=== PATIENT | female | born 1990 | race Caucasian/White ===

== ENCOUNTER 2016-08-29 16:18 | Emergency (ER) | payer MEDICAID ==
--- NOTE | 2016-08-29 16:23 | ER Document Report ---
ED Medical Screen (RME) - General Stated Complaint: MOUTH PAIN Mode of Arrival: Ambulatory Notes: pt presents to the ED with c/o pain where she had tooth pulled two weeks ago. No fever/vomiting/diarrhea. Reports OTC meds not working for pain. I have greeted and performed a rapid initial assessment of this patient. A comprehensive ED assessment and evaluation of the patient, analysis of test results and completion of the medical decision making process will be conducted by additional ED providers. TRAVEL OUTSIDE OF THE [place] IN LAST 30 DAYS: No - Related Data Allergies/Adverse Reactions: morphine [Morphine] Allergy (Severe, Verified 03/24/16 12:08) Difficulty breathing/itch diphenhydramine HCl [From Benadryl] Allergy (Intermediate, Verified 03/24/16 12: 08) RASH iodine [Iodine] Allergy (Intermediate, Verified 03/24/16 12:08) RASH latex [Latex] Allergy (Intermediate, Verified 03/24/16 12:08) RASH amoxicillin [Amoxicillin] Allergy (Unknown, Verified 03/24/16 12:08) Penicillins Allergy (Unknown, Verified 03/24/16 12:08) Past Medical History - Social History Family history: Hypertension, Other - copd - Past Medical History Cardiac Medical History: Reports: Hx Hypertension Pulmonary Medical History: Reports: Hx Asthma Renal/ Medical History: Reports: Hx Pelvic Inflammatory Disease Psychiatric Medical History: Reports: Hx Bipolar Disorder, Hx Depression, Hx Post Traumatic Stress Disorder - Immunizations Immunizations up to date: Yes Hx Diphtheria, Pertussis, Tetanus Vaccination: Yes
[2016-08-29] MEDS ORDERED: NAPROXEN 250 MG TABLET PO ONE (16:38)
[2016-08-29] MEDS ORDERED: CLINDAMYCIN HCL 150 MG CAPSULE PO ONE (16:38)
[2016-08-29] MEDS ORDERED: HYDROCODONE/ACETAMINOPHEN 5-325 MG TABLET PO ONE (16:38)
--- NOTE | 2016-08-29 16:40 | ER Document Report ---
HPI - HPI Patient complains to provider of: dental pain Onset: Yesterday Onset/Duration: Gradual Quality of pain: Sharp Pain Level: 3 Context: Patient states she had a tooth pulled 2 weeks ago. Patient reports that she developed right lower jaw pain at the site of her recent extraction yesterday. Patient denies any fever or facial swelling. Associated Symptoms: Other - Dental pain. denies: Fever, Headache, Nausea Exacerbated by: Denies Relieved by: Denies Similar symptoms previously: Yes Recently seen / treated by doctor: Yes - 2 weeks ago was at the dentist - ROS ROS below otherwise negative: Yes Systems Reviewed and Negative: Yes All other systems reviewed and negative - CONSTITUTIONAL Constitutional: DENIES: Fever, Chills - EENT EENT: DENIES: Sore Throat Notes: Dental pain - RESPIRATORY Respiratory: DENIES: Trouble Breathing, Coughing - GASTROINTESTINAL Gastrointestinal: DENIES: Nausea, Patient vomiting - REPRODUCTIVE Reproductive: DENIES: : - MUSCULOSKELETAL Musculoskeletal: DENIES: Neck Pain - DERM Skin Color: Normal Skin Problems: None Past Medical History - General Information source: Patient - Social History Smoking Status: Never Smoker Chew tobacco use (# tins/day): No Frequency of alcohol use: None Drug Abuse: None 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 Denies: Hx Peritoneal Dialysis Psychiatric Medical History: Reports: Hx Bipolar Disorder, Hx Depression, Hx Post Traumatic Stress Disorder Surgical Hx: Negative - Immunizations Immunizations up to date: Yes Hx Diphtheria, Pertussis, Tetanus Vaccination: Yes Vertical Provider Document - CONSTITUTIONAL Agree With Documented VS: Yes Exam Limitations: No Limitations General Appearance: WD/WN, No Apparent Distress - INFECTION CONTROL TRAVEL OUTSIDE OF THE [place] IN LAST 30 DAYS: No - HEENT HEENT: Atraumatic, Normocephalic. negative: Pharyngeal Exudate, Pharyngeal Tenderness, Pharyngeal Erythema, Tympanic Membrane Bulging Mouth Diagram: 1 - Site of extraction. Mild erythema to gingiva, no swelling, no concern for abscess, no sublingual or submental swelling, no trismus. - NECK Neck: Normal Inspection, Supple. negative: Lymphadenopathy-Left, Lymphadenopathy-Right - RESPIRATORY Respiratory: Breath Sounds Normal, No Respiratory Distress, Chest Non-Tender - CARDIOVASCULAR Cardiovascular: Regular Rate, Regular Rhythm, No Murmur - BACK Back: Normal Inspection - MUSCULOSKELETAL/EXTREMETIES Musculoskeletal/Extremeties: MAEW - NEURO Level of Consciousness: Awake, Alert, Appropriate Motor/Sensory: No Motor Deficit - DERM Integumentary: Warm, Dry, No Rash Discharge - Discharge Clinical Impression: Toothache Condition: Stable Disposition: HOME, SELF-CARE Instructions: Toothache ([facility]), Clindamycin ([facility]), Oral Narcotic Medication ([facility] ) Additional Instructions: Return immediately for any new or worsening symptoms Followup with your dental care provider, call Thursday to make a followup appointment Prescriptions: Clindamycin HCl [Cleocin 300 mg Capsule] 300 mg PO TID #21 capsule Hydrocodone/Acetaminophen [[place] 5-325 Tablet] 1 each PO Q4 PRN #15 tablet PRN Reason: Naproxen [Naprosyn 250 Nmg Tablet] 1 tab PO BID #14 tablet Forms: Return to Work
== END 2016-08-29 17:13 | disposition home or self-care (01) ==
LOC: ER 16:18
DX: K08.89 Other specified disorders of teeth and supporting structures (principal); R68.84 Jaw pain; Z98.890 Other specified postprocedural states; I10 Essential (primary) hypertension; J45.909 Unspecified asthma, uncomplicated
CPT/HCPCS: 99282; J3490 ×2

== ENCOUNTER 2016-08-31 10:52 | Emergency (ER) | payer MEDICAID ==
--- NOTE | 2016-08-31 10:56 | ER Document Report ---
ED Medical Screen (RME) - General Stated Complaint: POSSIBLE ETOH Notes: Patient has suicidal ideation she had a razor in her hand last night, intoxicated and wanting taking her life.Her boyfriend took the razor from her.. TRAVEL OUTSIDE OF THE [place] IN LAST 30 DAYS: No - Related Data Allergies/Adverse Reactions: morphine [Morphine] Allergy (Severe, Verified 08/29/16 16:22) Difficulty breathing/itch diphenhydramine HCl [From Benadryl] Allergy (Intermediate, Verified 08/29/16 16: 22) RASH iodine [Iodine] Allergy (Intermediate, Verified 08/29/16 16:22) RASH latex [Latex] Allergy (Intermediate, Verified 08/29/16 16:22) RASH amoxicillin [Amoxicillin] Allergy (Unknown, Verified 08/29/16 16:22) Penicillins Allergy (Unknown, Verified 08/29/16 16:22) Past Medical History - Social History Family history: Hypertension, Other - copd - Past Medical History Cardiac Medical History: Reports: Hx Hypertension Pulmonary Medical History: Reports: Hx Asthma Renal/ Medical History: Reports: Hx Pelvic Inflammatory Disease. Denies: Hx Peritoneal Dialysis Psychiatric Medical History: Reports: Hx Bipolar Disorder, Hx Depression, Hx Post Traumatic Stress Disorder - Immunizations Immunizations up to date: Yes Hx Diphtheria, Pertussis, Tetanus Vaccination: Yes
[2016-08-31] MEDS ORDERED: IBUPROFEN 800 MG TABLET PO ONE (11:25)
[2016-08-31] MEDS ORDERED: ONDANSETRON 4 MG TAB.RAPDIS PO ONE (11:26)
--- NOTE | 2016-08-31 11:26 | ER Document Report ---
ED Psych Disorder / Suicide - General Time seen by provider: 11:21 Mode of Arrival: Ambulatory Information source: Patient TRAVEL OUTSIDE OF THE [place] IN LAST 30 DAYS: No - HPI Patient complains to provider of: Suicidal ideation Onset: Other - see HPI Associated symptoms: Anxious <KRISTIE ESCOBAR - Last Filed: 08/31/16 12:37> <CONNIE QUINTERO - Last Filed: 08/31/16 15:36> - General Chief Complaint: Suicidal Ideation Stated Complaint: POSSIBLE ETOH Notes: Patient is a 26-year-old female presents to the emergency department with suicidal ideation over the past few days. Patient has a history of pain and he caught her in the past, approximately 2-3 years ago. Patient states that she got relief from cutting herself. Patient was started on medications through [facility]. Patient states she has been off of her medications for years and has done okay until now. The patient states that she drank lots of alcohol last night because she was feeling depressed, patient passed out sometime after 04:00 which is when she states she stopped drinking. Patient states that she came to the emergency department to seek help because she does not feel safe and along with her intoxication last night she also had feelings of cutting herself again. Patient denies homicidal ideations but just states that she wants to hurt herself. Patient states her PCP is a family urgent care. Patient states that currently she is not on any regular medications except for an antibiotic for an oral infection; patient states she got her wisdom tooth removed 2-3 weeks ago and the area became infected so now she is on an antibiotic. Patient is not taking any pain medication from the wisdom tooth procedure. Patient does complain of a headache consistent with her intoxication. Patient has history of PTSD, depression, and bipolar disorder. (KRISTIE ESCOBAR) - Related Data Allergies/Adverse Reactions: morphine [Morphine] Allergy (Severe, Verified 08/31/16 10:57) Difficulty breathing/itch diphenhydramine HCl [From Benadryl] Allergy (Intermediate, Verified 08/31/16 10: 57) RASH iodine [Iodine] Allergy (Intermediate, Verified 08/31/16 10:57) RASH latex [Latex] Allergy (Intermediate, Verified 08/31/16 10:57) RASH amoxicillin [Amoxicillin] Allergy (Unknown, Verified 08/31/16 10:57) Penicillins Allergy (Unknown, Verified 08/31/16 10:57) Home Medications: Current Home Medications No Home Medications 08/31/16 [History] Past Medical History - General Information source: Patient - Social History Smoking Status: Never Smoker Chew tobacco use (# tins/day): No Frequency of alcohol use: Occasional Drug Abuse: None Occupation: [employer] Family History: None Patient has suicidal ideation: Yes Patient has homicidal ideation: No - Past Medical History Cardiac Medical History: Reports: Hx Hypertension Pulmonary Medical History: Reports: Hx Asthma Renal/ Medical History: Reports: Hx Pelvic Inflammatory Disease Psychiatric Medical History: Reports: Hx Bipolar Disorder, Hx Depression, Hx Post Traumatic Stress Disorder Past Surgical History: Reports: Hx Oral Surgery - wisdom tooth removal 07/2016 - Immunizations Immunizations up to date: Yes Hx Diphtheria, Pertussis, Tetanus Vaccination: Yes <KRISTIE ESCOBAR - Last Filed: 08/31/16 12:37> Review of Systems - Review of Systems Constitutional: No symptoms reported EENT: No symptoms reported Cardiovascular: No symptoms reported Respiratory: No symptoms reported Gastrointestinal: No symptoms reported Genitourinary: No symptoms reported Female Genitourinary: No symptoms reported Musculoskeletal: No symptoms reported Skin: No symptoms reported Hematologic/Lymphatic: No symptoms reported Neurological/Psychological: See HPI, Headaches, Suicidal ideation -: Yes All other systems reviewed and negative <KRISTIE ESCOBAR - Last Filed: 08/31/16 12:37> Physical Exam - Vital signs Interpretation: Tachycardic - General General appearance: Appears well, Alert - HEENT Head: Normocephalic, Atraumatic Eyes: Normal Pupils: PERRL Mucous membranes: Normal - Respiratory Respiratory status: No respiratory distress Chest status: Nontender Breath sounds: Normal Chest palpation: Normal - Cardiovascular Rhythm: Regular Heart sounds: Normal auscultation Murmur: No - Abdominal Inspection: Normal Distension: No distension Bowel sounds: Normal Tenderness: Nontender Organomegaly: No organomegaly - Back Back: Normal, Nontender - Extremities General upper extremity: Normal inspection, Normal ROM, Normal strength General lower extremity: Normal inspection, Normal ROM, Normal strength - Neurological Neuro grossly intact: Yes Cognition: Normal Orientation: AAOx4 [place] Coma Scale Eye Opening: Spontaneous Celi Coma Scale Verbal: Oriented [place] Coma Scale Motor: Obeys Commands Celi Coma Scale Total: 15 Speech: Normal Sensory: Normal - Psychological Associated symptoms: Normal affect, Normal mood - Skin Skin Temperature: Warm Skin Moisture: Dry <KRISTIE ESCOBAR - Last Filed: 08/31/16 12:37> Course - Laboratory Result Diagrams: 08/31/16 11:05 08/31/16 11:05 <KRISTIE ESCOBAR - Last Filed: 08/31/16 12:37> - Laboratory Result Diagrams: 08/31/16 11:05 08/31/16 11:05 - EKG Interpretation by Me EKG shows normal: Sinus rhythm, [place], QRS Complexes, ST-T Waves. abnormal: Intervals Rate: Normal - 101 Rhythm: NSR P Waves: LAE <CONNIE QUINTERO - Last Filed: 08/31/16 15:36> - Vital Signs Vital signs: Temp Pulse Resp BP Pulse Ox 97.5 F 118 H 20 156/99 H 100 08/31/16 10:56 08/31/16 10:56 08/31/16 10:56 08/31/16 10:56 08/31/16 10:56 - Laboratory Laboratory results interpreted by me: 08/31/16 08/31/16 11:05 11:05 Sodium 147.1 H Salicylates < 1.0 L Acetaminophen < 10 L Discharge <KRISTIE ESCOBAR - Last Filed: 08/31/16 12:37> <CONNIE QUINTERO - Last Filed: 08/31/16 15:36> - Discharge Clinical Impression: Suicidal ideation Depression Qualifiers: Depression Type: unspecified Qualified Code(s): F32.9 - Major depressive disorder, single episode, unspecified Condition: Stable Disposition: HOME, SELF-CARE Additional Instructions: FOLLOW UP WITH [facility]. RETURN ANY TIME IF NEEDED. Referrals: [facility] [Provider Group] - Follow up as needed Scribe Attestation: 08/31/16 15:36 I personally performed the services described in the documentation, reviewed and edited the documentation which was dictated to the scribe in my presence, and it accurately records my words and actions. (CONNIE QUINTERO) Scribe Documentation <KRISTIE ESCOBAR - Last Filed: 08/31/16 12:37> <CONNIE QUINTERO - Last Filed: 08/31/16 15:36> - Scribe Written by Scribe:: CONNIE QUINTERO MD, SCRIBE 08/31/16 1126 Acting as scribe for: Dr. Quintero ([facility]) (CONNIE QUINTERO)
[2016-08-31 11:35] LABS: ABSOLUTE LYMPHOCYTES (AUTO) 1.9 10^3/uL (0.5-4.7); ABSOLUTE MONOCYTES (AUTO) 0.5 10^3/uL (0.1-1.4); ABSOLUTE NEUT (AUTO) 4.3 10^3/uL (1.7-8.2); BASOPHILS % (AUTO) 0.5 % (0-2); EOSINOPHILS % (AUTO) 0.6 % (0-6); HEMATOCRIT 42.2 % (36.0-47.0); HEMOGLOBIN 13.7 g/dL (12.0-15.5); HGB HCT DIFFERENCE -1.1; LYMPHOCYTES % (AUTO) 28.1 % (13-45); MEAN CORPUSCULAR HEMOGLOBIN 28.2 pg (27.0-33.4); MEAN CORPUSCULAR HGB CONC 32.3 g/dL (32.0-36.0); MEAN CORPUSCULAR VOLUME 87 fl (80-97); MONOCYTES % (AUTO) 7.9 % (3-13); RED BLOOD COUNT 4.83 10^6/uL (3.72-5.28); RED CELL DISTRIBUTION WIDTH 13.6 % (11.5-14.0); SEGMENTED NEUTROPHILS % (AUTO) 62.9 % (42-78); WHITE BLOOD COUNT 6.9 10^3/uL (4.0-10.5)
[2016-08-31 11:56] LABS: URINE BARBITURATES SCREEN NEGATIVE; URINE METHADONE SCREEN NEGATIVE; URINE PHENCYCLIDINE SCREEN NEGATIVE
[2016-08-31 12:04] LABS: ALANINE AMINOTRANSFERASE 31 U/L (9-52); ALKALINE PHOSPHATASE 96 U/L (38-126); ANION GAP 12 (5-19); ASPARTATE AMINO TRANSFERASE 30 U/L (14-36); BILIRUBIN,TOTAL 0.3 mg/dL (0.2-1.3); BLOOD UREA NITROGEN 11 mg/dL (7-20); CALCIUM 9.1 mg/dL (8.4-10.2); CARBON DIOXIDE 29 mmol/L (22-30); CHLORIDE 106 mmol/L (98-107); CREATININE RESULT 0.61 mg/dL (0.52-1.25); GLUCOSE 85 mg/dL (75-110); POTASSIUM 4.5 mmol/L (3.6-5.0); SODIUM 147.1 mmol/L (137-145); TOTAL PROTEIN 7.2 g/dL (6.3-8.2)
[2016-08-31 12:06] LABS: APPEARANCE,URINE SLIGHTLY-CLOUDY; BILIRUBIN,URINE NEGATIVE (NEGATIVE); GLUCOSE, URINE NEGATIVE (NEGATIVE); KETONES,URINE NEGATIVE (NEGATIVE); LEUKOCYTE ESTERASE,URINE NEGATIVE (NEGATIVE); NITRITE,URINE NEGATIVE (NEGATIVE); PROTEIN,URINE NEGATIVE (NEGATIVE); URINE SPECIFIC GRAVITY 1.015; UROBILINOGEN,URINE NEGATIVE mg/dL (<2.0)
[2016-08-31 12:08] LABS: ALCOHOL < 10 mg/dL (NONE DETECTED)
--- NOTE | 2016-08-31 13:01 | PSYCHOLOGICAL NOTE ---
Psych Note - Psych Note Psych Note: Patient is a 26 year old female who presents via EMS with c/o possible ETOH intoxication and SI. Patient reported upon arrival that she was depressed yesterday and planned to cut, but her boyfriend removed the razor from her possession. Patient now states during evaluation that over the past 2 weeks she has been labile with mood and making poor decisions. She states she had been staying with her mother, who helps her to care for her infant son; however , she left about 2 weeks ago because she could "no longer stand the site of it. " Patient states she has been sleeping in different places, to include park benches, friend, boyfriend, etc. Patient adamant that she drank alcohol up until she fell asleep; however, there is none in her BAL. Patient states she has not been on any medications to treat her Bipolar Disorder since prior to her , but reports she chose to stop taking them because she did not like the way they made her feel. Patient states she does not want medications. She states she came here today to keep herself safe. Patient was seen by this clinician in November of 2014 for suicidal ideations and was referred to [facility]. Patient states she did go there for treatment, but stopped when she stopped her medications. Patient is unable to verbalize what would help her. Note, patient delivered her baby in October of 2015, and has been seen 15 times here in the Department for pain related complaints. Most recently, patient was seen for tooth abscess (08/29/15) at which time there were no noted concerns for her mental status. Patient provided consent to speak with the following individuals. Mother, : states she last saw the patient this morning, and she seemed fine. Mother states the patient stated she needed to get help and confirmed with her that she would watch the baby. Mother states over the last week or so she has just lost interest in engaging with them. Mother adamant that the patient lives with her and states she did not want to say anything else because she doesn't want to "go against" her daughter. Mother did however , confirm that she is caring for the baby and other child. CPS report was filed with On-gathering worker, Constance Polk with [facility]. Patient is A&O. Mood is manic with normal affect. Patient endorses suicidal ideations with plans to cut. Patient denies A/V H; delusions not noted. Thought processes were guarded. Conversational speech was WNL for rate, tone, and prosody. Intellectual abilities were estimated within lower average range. Attention and focus were fair. Insight, judgment, and impulse control were poor. 296.80 (F31.9) Unspecified Bipolar and Related Disorder, per history Substance Abuse Patient is psychiatrically cleared for discharge. Patient denies current suicidal ideations, and acknowledges the wanted to harm herself last night while reportedly under the influence. Patient was offered various interventions , but has denied each one. Specifically, patient denies wanting pharmacological interventions to manage her Bipolar illness, and states she is not interested in outpatient therapy to address substance abuse concerns and develop coping skills to manage her symptoms. Patient was provided resources should she change her mind and was encouraged to pursue outpatient services. I consulted with Dr. Morales in regards to the care and management of this patient. ED MD is in agreement with disposition and recommendations.
[2016-08-31 15:45] VITALS: BP 111/66
--- NOTE | 2016-08-31 18:33 | EKG REPORT ---
SEVERITY:- ABNORMAL ECG - SINUS TACHYCARDIA LEFT ATRIAL ABNORMALITY BORDERLINE PROLONGED QT INTERVAL : Confirmed by: Sunita Hudson MD 31-Aug-2016 18:32:47
== END 2016-08-31 15:47 | disposition home or self-care (01) ==
LOC: ER 10:52
DX: F32.9 Major depressive disorder, single episode, unspecified (principal); R45.851 Suicidal ideations; R51 Headache; R00.0 Tachycardia, unspecified; B99.9 Unspecified infectious disease; I10 Essential (primary) hypertension; J45.909 Unspecified asthma, uncomplicated; Z91.5 Personal history of self-harm; Z98.890 Other specified postprocedural states; Z88.5 Allergy status to narcotic agent; Z88.8 Allergy status to other drugs, medicaments and biological substances; Z88.0 Allergy status to penicillin; Z88.3 Allergy status to other anti-infective agents
CPT/HCPCS: 93005; 99285; 36415; 80307 ×4; 84703; 85025; 80053; 81001; 93010; J3490; S0119

== ENCOUNTER 2016-09-13 10:44 | Emergency (ER) | payer MEDICAID, OTHER ==
[2016-09-13] MEDS ORDERED: PROMETHAZINE HCL 25 MG TABLET PO ONE (11:00)
--- NOTE | 2016-09-13 11:03 | ER Document Report ---
ED Medical Screen (RME) - General Stated Complaint: RIGHT LOWER ABDOMINAL PAIN Time seen by provider: 10:57 Mode of Arrival: Ambulatory Information source: Patient Notes: 26-year-old female just recently found out that she was . Last menstrual period 08/10/2017. She started having suprapubic and right pelvic cramping this morning. No vaginal bleeding. Very nauseated. No vomiting. She does not want Zofran because of the controversy but is willing to take Phenergan because she wants something for the nausea. Was treated for PID 4 months ago. TRAVEL OUTSIDE OF THE [place] IN LAST 30 DAYS: No - Related Data Allergies/Adverse Reactions: morphine [Morphine] Allergy (Severe, Verified 09/13/16 10:59) Difficulty breathing/itch diphenhydramine HCl [From Benadryl] Allergy (Intermediate, Verified 09/13/16 10: 59) RASH iodine [Iodine] Allergy (Intermediate, Verified 09/13/16 10:59) RASH latex [Latex] Allergy (Intermediate, Verified 09/13/16 10:59) RASH amoxicillin [Amoxicillin] Allergy (Unknown, Verified 09/13/16 10:59) Penicillins Allergy (Unknown, Verified 09/13/16 10:59) Past Medical History - Social History Family history: Hypertension, Other - copd - Past Medical History Cardiac Medical History: Reports: Hx Hypertension Pulmonary Medical History: Reports: Hx Asthma Renal/ Medical History: Reports: Hx Pelvic Inflammatory Disease. Denies: Hx Peritoneal Dialysis Psychiatric Medical History: Reports: Hx Bipolar Disorder, Hx Depression, Hx Post Traumatic Stress Disorder Past Surgical History: Reports: Hx Oral Surgery - wisdom tooth removal 07/2016 - Immunizations Immunizations up to date: Yes Hx Diphtheria, Pertussis, Tetanus Vaccination: Yes Physical Exam - Vital signs Vitals: Temp Pulse Resp BP Pulse Ox 98.1 F 99 16 170/95 H 100 09/13/16 10:53 09/13/16 10:53 09/13/16 10:53 09/13/16 10:53 09/13/16 10:53 Course - Vital Signs Vital signs: Temp Pulse Resp BP Pulse Ox 98.1 F 99 16 170/95 H 100 09/13/16 10:53 09/13/16 10:53 09/13/16 10:53 09/13/16 10:53 09/13/16 10:53
--- NOTE | 2016-09-13 11:29 | ER Document Report ---
ED GI/ - General Chief Complaint: Abdominal Cramping Stated Complaint: RIGHT LOWER ABDOMINAL PAIN Mode of Arrival: Ambulatory Notes: 26-year-old female just recently found out that she was . Last menstrual period 08/10/2017. She started having suprapubic and right pelvic cramping this morning. No vaginal bleeding. Very nauseated. No vomiting. She does not want Zofran because of the controversy but is willing to take Phenergan because she wants something for the nausea. Was treated for PID 4 months ago. Describes her pain as cramping 1 out of 5 at its worse states she's been having daily otherwise tolerable with intermittent nausea. Denies any bleeding, discharge, vaginal odor. Past medical history significant for PTSD, depression, bipolar PCP is Dr. tico Leung TRAVEL OUTSIDE OF THE [place] IN LAST 30 DAYS: No - Related Data Allergies/Adverse Reactions: morphine [Morphine] Allergy (Severe, Verified 09/13/16 10:59) Difficulty breathing/itch diphenhydramine HCl [From Benadryl] Allergy (Intermediate, Verified 09/13/16 10: 59) RASH iodine [Iodine] Allergy (Intermediate, Verified 09/13/16 10:59) RASH latex [Latex] Allergy (Intermediate, Verified 09/13/16 10:59) RASH amoxicillin [Amoxicillin] Allergy (Unknown, Verified 09/13/16 10:59) Penicillins Allergy (Unknown, Verified 09/13/16 10:59) Past Medical History - General Information source: Patient - Social History Smoking Status: Never Smoker Chew tobacco use (# tins/day): No Frequency of alcohol use: Occasional Drug Abuse: None Family History: None Patient has suicidal ideation: No Patient has homicidal ideation: No - Past Medical History Cardiac Medical History: Reports: Hx Hypertension Pulmonary Medical History: Reports: Hx Asthma Renal/ Medical History: Reports: Hx Pelvic Inflammatory Disease. Denies: Hx Peritoneal Dialysis Psychiatric Medical History: Reports: Hx Bipolar Disorder, Hx Depression, Hx Post Traumatic Stress Disorder Past Surgical History: Reports: Hx Oral Surgery - wisdom tooth removal 07/2016 - Immunizations Immunizations up to date: Yes Hx Diphtheria, Pertussis, Tetanus Vaccination: Yes Review of Systems - Review of Systems Constitutional: No symptoms reported EENT: No symptoms reported Cardiovascular: No symptoms reported Respiratory: No symptoms reported Gastrointestinal: Other - abdominal cramping Genitourinary: No symptoms reported Female Genitourinary: No symptoms reported Musculoskeletal: No symptoms reported Skin: No symptoms reported Hematologic/Lymphatic: No symptoms reported Physical Exam - Vital signs Vitals: Temp Pulse Resp BP Pulse Ox 98.1 F 99 16 170/95 H 100 09/13/16 10:53 09/13/16 10:53 09/13/16 10:53 09/13/16 10:53 09/13/16 10:53 - Notes Notes: PHYSICAL EXAM GENERAL: Alert, interacts well. HEAD: Normocephalic, atraumatic. EYES: Pupils equal, round, and reactive to light. Extraocular movements intact. ENT: Oral mucosa moist, tongue midline. NECK: Full range of motion. Supple. Trachea midline. LUNGS: Clear to auscultation bilaterally, no wheezes, rales, or rhonchi. No respiratory distress. HEART: Regular rate and rhythm. No murmurs, gallops, or rubs. ABDOMEN: Soft, nondistended, nontender. No guarding, rebound, or rigidity.. Bowel sounds present in all 4 quadrants. Female : deferred EXTREMITIES: Moves all 4 extremities spontaneously. No edema, radial and dorsalis pedis pulses 2/4 bilaterally. No cyanosis. NEUROLOGICAL: Alert and oriented x3. Normal speech. PSYCH: Normal affect, normal mood. SKIN: Warm, dry, normal turgor. No rashes or lesions noted. Course - Re-evaluation Re-evalutation: 09/13/16 12:46 Is a 26-year-old female is hemodynamically stable, no acute distress. Transvaginal ultrasound did not reveal any IUP or extrauterine . Lab work did not reveal any leukocytosis or anemia. Her hCG was undetectable and her was negative. Urinalysis does reveal elevated leuk esterase. - Vital Signs Vital signs: Temp Pulse Resp BP Pulse Ox 98.1 F 99 16 170/95 H 100 09/13/16 10:53 09/13/16 10:53 09/13/16 10:53 09/13/16 10:53 09/13/16 10:53 - Laboratory Result Diagrams: 09/13/16 11:25 Laboratory results interpreted by me: 09/13/16 12:10 Ur Leukocyte Esterase SMALL H Discharge - Discharge Clinical Impression: UTI (urinary tract infection) Qualifiers: Urinary tract infection type: acute cystitis Hematuria presence: without hematuria Qualified Code(s): N30.00 - Acute cystitis without hematuria Condition: Good Disposition: HOME, SELF-CARE Instructions: Urinary Tract Infection ([facility]) Prescriptions: Ciprofloxacin HCl [Cipro 250 mg Tablet] 1 tab PO BID 3 Days Forms: Elevated Blood Pressure, Return to Work Referrals: MICHAEL LEUNG MD [ACTIVE STAFF] - Follow up as needed
[2016-09-13 11:41] LABS: ABSOLUTE EOSINOPHILS # (AUTO) 0.1 10^3/uL (0.0-0.6); ABSOLUTE MONOCYTES (AUTO) 0.8 10^3/uL (0.1-1.4); ABSOLUTE NEUT (AUTO) 7.3 10^3/uL (1.7-8.2); BASOPHILS % (AUTO) 0.2 % (0-2); EOSINOPHILS % (AUTO) 0.8 % (0-6); HEMATOCRIT 40.9 % (36.0-47.0); HEMOGLOBIN 13.7 g/dL (12.0-15.5); HGB HCT DIFFERENCE 0.2; LYMPHOCYTES % (AUTO) 19.9 % (13-45); MEAN CORPUSCULAR HEMOGLOBIN 28.8 pg (27.0-33.4); MEAN CORPUSCULAR HGB CONC 33.5 g/dL (32.0-36.0); MEAN CORPUSCULAR VOLUME 86 fl (80-97); MONOCYTES % (AUTO) 7.4 % (3-13); RED BLOOD COUNT 4.76 10^6/uL (3.72-5.28); RED CELL DISTRIBUTION WIDTH 13.7 % (11.5-14.0); SEGMENTED NEUTROPHILS % (AUTO) 71.7 % (42-78); WHITE BLOOD COUNT 10.2 10^3/uL (4.0-10.5)
[2016-09-13 12:37] LABS: APPEARANCE,URINE CLOUDY; BILIRUBIN,URINE NEGATIVE (NEGATIVE); GLUCOSE, URINE NEGATIVE (NEGATIVE); KETONES,URINE NEGATIVE (NEGATIVE); LEUKOCYTE ESTERASE,URINE SMALL (NEGATIVE); NITRITE,URINE NEGATIVE (NEGATIVE); PROTEIN,URINE NEGATIVE (NEGATIVE); URINE SPECIFIC GRAVITY 1.021; UROBILINOGEN,URINE NEGATIVE mg/dL (<2.0)
[2016-09-13] MEDS ORDERED: CIPROFLOXACIN HCL 500 MG TABLET PO ONE (12:51)
[2016-09-13 12:53] VITALS: BP 141/95
== END 2016-09-13 13:03 | disposition home or self-care (01) ==
LOC: ER 10:44
DX: N30.00 Acute cystitis without hematuria (principal); R10.31 Right lower quadrant pain; I10 Essential (primary) hypertension; F43.10 Post-traumatic stress disorder, unspecified; Z88.6 Allergy status to analgesic agent; Z91.040 Latex allergy status; Z88.0 Allergy status to penicillin
CPT/HCPCS: 99284; 86900; 86901; 36415; 87086; 84702; 85025; 81001; 76817; J3490 ×2

== ENCOUNTER 2016-09-22 20:50 | Emergency (ER) | payer MEDICAID ==
[2016-09-22] MEDS ORDERED: ACETAMINOPHEN 325 MG TABLET PO ONE (22:28)
--- NOTE | 2016-09-22 22:30 | ER Document Report ---
ED Medical Screen (RME) - General Chief Complaint: Ankle Pain Stated Complaint: FALL, LEG PAIN Mode of Arrival: Wheelchair Information source: Patient Notes: Patient states she was chasing after her dog and stepped into a pothole. Patient complains of right ankle pain. I have greeted and performed a rapid initial assessment of this patient. A comprehensive ED assessment and evaluation of the patient, analysis of test results and completion of the medical decision making process will be conducted by additional ED providers. TRAVEL OUTSIDE OF THE [place] IN LAST 30 DAYS: No - Related Data Allergies/Adverse Reactions: morphine [Morphine] Allergy (Severe, Verified 09/13/16 10:59) Difficulty breathing/itch diphenhydramine HCl [From Benadryl] Allergy (Intermediate, Verified 09/13/16 10: 59) RASH iodine [Iodine] Allergy (Intermediate, Verified 09/13/16 10:59) RASH latex [Latex] Allergy (Intermediate, Verified 09/13/16 10:59) RASH amoxicillin [Amoxicillin] Allergy (Unknown, Verified 09/13/16 10:59) Penicillins Allergy (Unknown, Verified 09/13/16 10:59) Past Medical History - Social History Family history: Hypertension, Other - copd - Past Medical History Cardiac Medical History: Reports: Hx Hypertension Pulmonary Medical History: Reports: Hx Asthma Renal/ Medical History: Reports: Hx Pelvic Inflammatory Disease. Denies: Hx Peritoneal Dialysis Psychiatric Medical History: Reports: Hx Bipolar Disorder, Hx Depression, Hx Post Traumatic Stress Disorder Past Surgical History: Reports: Hx Oral Surgery - wisdom tooth removal 07/2016 - Immunizations Immunizations up to date: Yes Hx Diphtheria, Pertussis, Tetanus Vaccination: Yes Physical Exam - Vital signs Vitals: Temp Pulse Resp BP Pulse Ox 98.2 F 94 18 156/101 H 100 09/22/16 22:18 09/22/16 22:18 09/22/16 22:18 09/22/16 22:18 09/22/16 22:18 - Extremities General lower extremity: Tender - Right foot and ankle Course - Vital Signs Vital signs: Temp Pulse Resp BP Pulse Ox 98.2 F 94 18 156/101 H 100 09/22/16 22:18 09/22/16 22:18 09/22/16 22:18 09/22/16 22:18 09/22/16 22:18
--- NOTE | 2016-09-23 01:14 | ER Document Report ---
ED Extremity Problem, Lower - General Chief Complaint: Ankle Pain Stated Complaint: FALL, LEG PAIN Mode of Arrival: Wheelchair TRAVEL OUTSIDE OF THE [place] IN LAST 30 DAYS: No - Related Data Allergies/Adverse Reactions: morphine [Morphine] Allergy (Severe, Verified 09/13/16 10:59) Difficulty breathing/itch diphenhydramine HCl [From Benadryl] Allergy (Intermediate, Verified 09/13/16 10: 59) RASH iodine [Iodine] Allergy (Intermediate, Verified 09/13/16 10:59) RASH latex [Latex] Allergy (Intermediate, Verified 09/13/16 10:59) RASH amoxicillin [Amoxicillin] Allergy (Unknown, Verified 09/13/16 10:59) Penicillins Allergy (Unknown, Verified 09/13/16 10:59) Past Medical History - General Information source: Patient - Social History Smoking Status: Never Smoker Frequency of alcohol use: Occasional Drug Abuse: None Family History: None Patient has suicidal ideation: No Patient has homicidal ideation: No - Past Medical History Cardiac Medical History: Reports: Hx Hypertension Pulmonary Medical History: Reports: Hx Asthma Renal/ Medical History: Reports: Hx Pelvic Inflammatory Disease. Denies: Hx Peritoneal Dialysis Psychiatric Medical History: Reports: Hx Bipolar Disorder, Hx Depression, Hx Post Traumatic Stress Disorder Past Surgical History: Reports: Hx Oral Surgery - wisdom tooth removal 07/2016 - Immunizations Immunizations up to date: Yes Hx Diphtheria, Pertussis, Tetanus Vaccination: Yes Physical Exam - Vital signs Vitals: Temp Pulse Resp BP Pulse Ox 98.2 F 94 18 156/101 H 100 09/22/16 22:18 09/22/16 22:18 09/22/16 22:18 09/22/16 22:18 09/22/16 22:18 Course - Vital Signs Vital signs: Temp Pulse Resp BP Pulse Ox 98.2 F 94 18 156/101 H 100 09/22/16 22:18 09/22/16 22:18 09/22/16 22:18 09/22/16 22:18 09/22/16 22:18 Discharge - Discharge Clinical Impression: Ankle sprain Condition: Stable Disposition: HOME, SELF-CARE Instructions: Sprained Ankle ([facility]), Ice Packs ([facility]) Referrals: GLENN ROSS MD [Primary Care Provider] - Follow up as needed
--- NOTE | 2016-09-23 02:39 | ER Document Report ---
ED Extremity Problem, Lower - General Mode of Arrival: Wheelchair Information source: Patient TRAVEL OUTSIDE OF THE [place] IN LAST 30 DAYS: No - HPI Patient complains to provider of: Injury Location: Ankle - Right Occurred: This afternoon Where: Outdoors Onset/Duration: Sudden Context: Fell Associated symptoms: Painful ambulation <BAUTISTA DEY - Last Filed: 09/23/16 02:34> <ELVIS SAMPSON - Last Filed: 09/23/16 05:17> - General Chief Complaint: Ankle Pain Stated Complaint: FALL, LEG PAIN Notes: Patient is a 26-year-old female presenting to the emergency department concerned of right ankle pain after tripping in a hole while trying to get her dog off the street this afternoon. Patient denies any other injuries. Patient has no other concerns besides her right ankle. (BAUTISTA DEY) - Related Data Allergies/Adverse Reactions: morphine [Morphine] Allergy (Severe, Verified 09/13/16 10:59) Difficulty breathing/itch diphenhydramine HCl [From Benadryl] Allergy (Intermediate, Verified 09/13/16 10: 59) RASH iodine [Iodine] Allergy (Intermediate, Verified 09/13/16 10:59) RASH latex [Latex] Allergy (Intermediate, Verified 09/13/16 10:59) RASH amoxicillin [Amoxicillin] Allergy (Unknown, Verified 09/13/16 10:59) Penicillins Allergy (Unknown, Verified 09/13/16 10:59) Past Medical History - General Information source: Patient - Social History Smoking Status: Never Smoker Frequency of alcohol use: Occasional Drug Abuse: None Family History: None, Reviewed & Not Pertinent Patient has suicidal ideation: No Patient has homicidal ideation: No - Past Medical History Cardiac Medical History: Reports: Hx Hypertension Pulmonary Medical History: Reports: Hx Asthma Renal/ Medical History: Reports: Hx Pelvic Inflammatory Disease. Denies: Hx Peritoneal Dialysis Psychiatric Medical History: Reports: Hx Bipolar Disorder, Hx Depression, Hx Post Traumatic Stress Disorder Past Surgical History: Reports: Hx Oral Surgery - wisdom tooth removal 07/2016 - Immunizations Immunizations up to date: Yes Hx Diphtheria, Pertussis, Tetanus Vaccination: Yes <BAUTISTA DEY - Last Filed: 09/23/16 02:34> Review of Systems - Review of Systems Constitutional: No symptoms reported EENT: No symptoms reported Cardiovascular: No symptoms reported Respiratory: No symptoms reported Gastrointestinal: No symptoms reported Genitourinary: No symptoms reported Female Genitourinary: No symptoms reported Musculoskeletal: See HPI, Other - Right foot/ankle pain Skin: No symptoms reported Hematologic/Lymphatic: No symptoms reported Neurological/Psychological: No symptoms reported -: Yes All other systems reviewed and negative <FABY DEYICA - Last Filed: 09/23/16 02:34> Physical Exam - Vital signs Interpretation: Hypertensive - General General appearance: Alert In distress: None - HEENT Head: Normocephalic, Atraumatic Eyes: Normal Pupils: PERRL - Respiratory Respiratory status: No respiratory distress Breath sounds: Normal - Cardiovascular Rhythm: Regular Heart sounds: Normal auscultation Murmur: No - Abdominal Inspection: Normal Tenderness: Nontender - Back Back: Normal, Nontender - Extremities General upper extremity: Normal inspection, Normal color, Normal ROM. No: Edema Ankle: Tender - Tenderness to palpation inferior and anterior to right lateral malleolus. Good pulses. Patient is able to move toes. - Neurological Neuro grossly intact: Yes Cognition: Normal Rose Bud Coma Scale Eye Opening: Spontaneous Rose [place] Coma Scale Verbal: Oriented Rose [place] Coma Scale Motor: Obeys Commands Celi Coma Scale Total: 15 Speech: Normal - Psychological Associated symptoms: Normal affect, Normal mood - Skin Skin Temperature: Warm Skin Moisture: Dry Skin Color: Normal <TIBURCIOBAUTISTA - Last Filed: 09/23/16 02:34> Course <TIBURCIOGRAEMEBAUTISTA - Last Filed: 09/23/16 02:34> - Diagnostic Test Radiology reviewed: Reports reviewed <ELVIS SAMPSON - Last Filed: 09/23/16 05:17> - Re-evaluation Re-evalutation: 09/23/16 Patient with no acute findings on x-ray. Patient will be given splint and crutches. She can take ibuprofen and Tylenol as needed at home for pain. No other injuries. Stable for discharge. Understands agrees with plan. Follow- up with PMD as needed. (ELVIS SAMPSON) - Vital Signs Vital signs: Temp Pulse Resp BP Pulse Ox 98.3 F 79 15 128/81 H 99 09/23/16 03:57 09/23/16 03:57 09/23/16 03:57 09/23/16 03:57 09/23/16 03:57 (BAUTISTA DEY) (ELVIS SAMPSON) Discharge <BAUTISTA DEY - Last Filed: 09/23/16 02:34> <ELVIS SAMPSON - Last Filed: 09/23/16 05:17> - Discharge Clinical Impression: Ankle sprain Qualifiers: Encounter type: initial encounter Involved ligament of ankle: unspecified ligament Laterality: right Qualified Code(s): S93.401A - Sprain of unspecified ligament of right ankle, initial encounter Condition: Stable Disposition: HOME, SELF-CARE Instructions: Ice Packs ([facility]), Sprained Ankle ([facility]) Forms: Return to Work Referrals: GLENN ROSS MD [Primary Care Provider] - Follow up as needed Scribe Attestation: 09/23/16 05:17 I personally performed the services described in the documentation, reviewed and edited the documentation which was dictated to the scribe in my presence, and it accurately records my words and actions. (ELVIS SAMPSON) Scribe Documentation - Scribe Written by Scribe:: Bautista Dey 09/23/2016 0235 acting as scribe for :: Filiberto <BAUTISTA DEY - Last Filed: 09/23/16 02:34>
[2016-09-23 03:58] VITALS: BP 128/81
== END 2016-09-23 02:13 | disposition home or self-care (01) ==
LOC: ER 20:50
DX: S93.401A Sprain of unspecified ligament of right ankle, initial encounter (principal); M25.571 Pain in right ankle and joints of right foot; W01.0XXA Fall on same level from slipping, tripping and stumbling without subsequent striking against object, initial encounter; Y93.K9 Activity, other involving animal care; I10 Essential (primary) hypertension; J44.9 Chronic obstructive pulmonary disease, unspecified; Z88.5 Allergy status to narcotic agent; Z88.8 Allergy status to other drugs, medicaments and biological substances; Z88.3 Allergy status to other anti-infective agents; Z91.040 Latex allergy status; Z88.0 Allergy status to penicillin
CPT/HCPCS: 99283; 73610; 73630; J3490

== ENCOUNTER 2016-10-23 03:26 | Emergency (ER) | payer MEDICAID ==
--- NOTE | 2016-10-23 03:57 | ER Document Report ---
ED General - General Chief Complaint: Psych Problem Stated Complaint: EDIVC Cannot obtain history due to: Uncooperative Notes: Patient is a 26-year-old female with past medical history of multiple prior suicide attempts who presents on IVC after apparently trying to kill herself or threatening to kill herself by slashing her wrist with a knife. Patient refuses to provide any history at time of assessment seen she does not wish to speak to me or any other the medical providers here in the emergency department. Her states the above provided history. Patient denies any medical complaints. believes that the losing custody of her child to her ex-fianc triggered today's episode. He does not believe she takes any psychiatric medications. TRAVEL OUTSIDE OF THE [place] IN LAST 30 DAYS: No - Related Data Allergies/Adverse Reactions: morphine [Morphine] Allergy (Severe, Verified 10/23/16 03:48) Difficulty breathing/itch diphenhydramine HCl [From Benadryl] Allergy (Intermediate, Verified 10/23/16 03: 48) RASH iodine [Iodine] Allergy (Intermediate, Verified 10/23/16 03:48) RASH latex [Latex] Allergy (Intermediate, Verified 10/23/16 03:48) RASH amoxicillin [Amoxicillin] Allergy (Unknown, Verified 10/23/16 03:48) Penicillins Allergy (Unknown, Verified 10/23/16 03:48) Past Medical History - General Information source: Relative Cannot obtain history due to: Uncooperative - Social History Smoking Status: Current Every Day Smoker Chew tobacco use (# tins/day): No Frequency of alcohol use: Occasional Drug Abuse: None Lives with: Spouse/Significant other Family History: None, Reviewed & Not Pertinent Patient has suicidal ideation: No Patient has homicidal ideation: No - Past Medical History Cardiac Medical History: Reports: Hx Hypertension Pulmonary Medical History: Reports: Hx Asthma Renal/ Medical History: Reports: Hx Pelvic Inflammatory Disease. Denies: Hx Peritoneal Dialysis Psychiatric Medical History: Reports: Hx Bipolar Disorder, Hx Depression, Hx Post Traumatic Stress Disorder Past Surgical History: Reports: Hx Oral Surgery - wisdom tooth removal 07/2016 - Immunizations Immunizations up to date: Yes Hx Diphtheria, Pertussis, Tetanus Vaccination: Yes Review of Systems - Review of Systems Notes: Constitutional: Negative for fever. HENT: Negative for sore throat. Eyes: Negative for visual changes. Cardiovascular: Negative for chest pain. Respiratory: Negative for shortness of breath. Gastrointestinal: Negative for abdominal pain, vomiting or diarrhea. Genitourinary: Negative for dysuria. Musculoskeletal: Negative for back pain. Skin: Negative for rash. Neurological: Negative for headaches, weakness or numbness. 10 point ROS negative except as marked above and in HPI. Physical Exam - Vital signs Vitals: Temp Pulse Resp BP Pulse Ox 97.6 F 81 18 143/95 H 100 10/23/16 03:28 10/23/16 03:28 10/23/16 03:28 10/23/16 03:28 10/23/16 03:28 Notes: PHYSICAL EXAMINATION: GENERAL: Well-appearing, well-nourished and in no acute distress. HEAD: Atraumatic, normocephalic. EYES: sclera anicteric, conjunctiva are normal. ENT: Moist mucous membranes. NECK: Normal range of motion LUNGS: Normal work of breathing HEART: 2+ radial pulses bilaterally EXTREMITIES: no pitting or edema. No cyanosis. NEUROLOGICAL: No focal neurological deficits. Moves all extremities spontaneously and on command. PSYCH: Disposition is below stated age. Poor eye contact. Minimal verbal contact SKIN: Warm, Dry, normal turgor, no rashes or lesions noted. Course - Re-evaluation Re-evalutation: 10/23/16 03:57 Patient presents with apparent suicidal ideation although she refuses to speak to me. Patient states "I do not want to speak about it" and her at the bedside provides the history per the IVC. Patient apparently was threatening to commit suicide this evening and did hold a knife to her wrist on 2 separate occasions. She has a prior history of suicidal ideation and attempts in the past. She denies any physical complaints here today. Perform medical screening laboratories per protocol and a medical screening exam is otherwise unremarkable. She will be seen by psychiatry in the morning. 10/23/16 06:00 Medical screening laboratories are unremarkable. Patient is now cleared for evaluation by psychiatry. - Vital Signs Vital signs: Temp Pulse Resp BP Pulse Ox 97.6 F 81 18 143/95 H 100 10/23/16 03:28 10/23/16 03:28 10/23/16 03:50 10/23/16 03:28 10/23/16 03:28 - Laboratory Result Diagrams: 10/23/16 04:32 10/23/16 04:32 Laboratory results interpreted by me: 10/23/16 10/23/16 10/23/16 04:32 04:32 04:55 WBC 12.4 H RDW 14.3 H Ur Leukocyte Esterase TRACE H Salicylates < 1.0 L Acetaminophen < 10 L - EKG Interpretation by Me Additional EKG results interpreted by me: 10/23/16 06:00 Normal sinus rhythm. No ST elevations or depressions. QTC is 468. Heart rate is 68. Discharge - Discharge Clinical Impression: Attempted suicide Condition: Fair Disposition: PSYCH HOSP/UNIT
[2016-10-23 04:40] LABS: ABSOLUTE EOSINOPHILS # (AUTO) 0.3 10^3/uL (0.0-0.6); ABSOLUTE LYMPHOCYTES (AUTO) 2.9 10^3/uL (0.5-4.7); ABSOLUTE NEUT (AUTO) 8.1 10^3/uL (1.7-8.2); BASOPHILS % (AUTO) 0.3 % (0-2); EOSINOPHILS % (AUTO) 2.5 % (0-6); HEMATOCRIT 38.2 % (36.0-47.0); HEMOGLOBIN 12.9 g/dL (12.0-15.5); HGB HCT DIFFERENCE 0.5; LYMPHOCYTES % (AUTO) 23.5 % (13-45); MEAN CORPUSCULAR HEMOGLOBIN 28.4 pg (27.0-33.4); MEAN CORPUSCULAR HGB CONC 33.6 g/dL (32.0-36.0); MEAN CORPUSCULAR VOLUME 84 fl (80-97); MONOCYTES % (AUTO) 8.3 % (3-13); RED BLOOD COUNT 4.53 10^6/uL (3.72-5.28); RED CELL DISTRIBUTION WIDTH 14.3 % (11.5-14.0); SEGMENTED NEUTROPHILS % (AUTO) 65.4 % (42-78); WHITE BLOOD COUNT 12.4 10^3/uL (4.0-10.5)
[2016-10-23] MEDS ORDERED: ACETAMINOPHEN 325 MG TABLET PO ONE (04:44)
[2016-10-23 04:54] LABS: ALANINE AMINOTRANSFERASE 32 U/L (9-52); ALBUMIN 3.9 g/dL (3.5-5.0); ALKALINE PHOSPHATASE 88 U/L (38-126); ANION GAP 12 (5-19); ASPARTATE AMINO TRANSFERASE 21 U/L (14-36); BILIRUBIN,TOTAL 0.3 mg/dL (0.2-1.3); BLOOD UREA NITROGEN 11 mg/dL (7-20); CALCIUM 9.1 mg/dL (8.4-10.2); CARBON DIOXIDE 27 mmol/L (22-30); CHLORIDE 104 mmol/L (98-107); GLUCOSE 93 mg/dL (75-110); POTASSIUM 3.7 mmol/L (3.6-5.0); SODIUM 142.6 mmol/L (137-145); TOTAL PROTEIN 6.7 g/dL (6.3-8.2)
[2016-10-23 05:01] LABS: ALCOHOL < 10 mg/dL (NONE DETECTED)
[2016-10-23 05:23] LABS: URINE BARBITURATES SCREEN NEGATIVE; URINE METHADONE SCREEN NEGATIVE; URINE OPIATES LOW NEGATIVE; URINE PHENCYCLIDINE SCREEN NEGATIVE
[2016-10-23 05:26] LABS: APPEARANCE,URINE CLEAR; BILIRUBIN,URINE NEGATIVE (NEGATIVE); GLUCOSE, URINE NEGATIVE (NEGATIVE); KETONES,URINE NEGATIVE (NEGATIVE); LEUKOCYTE ESTERASE,URINE TRACE (NEGATIVE); NITRITE,URINE NEGATIVE (NEGATIVE); PROTEIN,URINE NEGATIVE (NEGATIVE); URINE SPECIFIC GRAVITY 1.008; UROBILINOGEN,URINE NEGATIVE mg/dL (<2.0)
--- NOTE | 2016-10-23 08:49 | PSYCHOLOGICAL NOTE ---
Psych Note - Psych Note Psych Note: Patient presented to [facility] ED with multiple prior suicide attempts who presents on IVC after apparently trying to kill herself or threatening to kill herself by slashing her wrist with a knife. Patient refuses to provide any history at time of assessment seen she does not wish to speak to me or any other the medical providers here in the emergency department. Her states the above provided history. Patient stated that she did not want to talk about what occurred; clinician noted patient to be smirking. After clinician explained to patient that she wanted to be part of the process and not talking was not an option. Patient discloses she did not know where to start. Clinician assisted patient in starting by asking questions. Patient states she is receiving services through [facility] and started going approximately mid September and that she receives medication management and therapeutic services. She continued disclosed that she has diagnosis of bipolar. Patient has been twice with 2 children; age 5 and age 1. She continue disclosed that she was diagnosed with depression back in 2010. She has had 1 psychiatric hospitalization at [facility] 2010. Patient disclosed that her 1-year-old was in kinship care with her mother and when her ex heard about it he jumped around from [place] spoke with the CPS worker took custody of the baby and left. She continue disclosed that she "just lost it." Patient states that she is very close to the baby more so than a 5-year-old because her mother had always taking care of a 5-year-old. Patient states she has no memory of having difficulty bonding with the baby; Clinician notes that on 08/31/16 the patient stated "she had been staying with her mother, who helps her to care for her infant son; however, she left about 2 weeks ago because she could 'no longer stand the site of it.'" Patient states that she thinks she needs to get on medication with outpatient treatment. Clinician asked if patient is receiving substance abuse treatment; patient denies. Clinician notes patient sought services 16 times in 2016 patient states "I don't remember, but I believe you." Clinician asked patient if she has a substance abuse problem, patient confirms. Patient states she would like assistance with sobriety. Patient is alert and orientated to person place time and circumstance. Patient' s mood is euthymic with congruent affect. Patient denies suicidal and homicidal ideation; patient does admit to past difficulties with SI and suicidal gestures. Patient denies auditory visual hallucinations my: No delusions are noted. Thought process is logical organized and linear. Thought content is guarded and showing tendencies of manipulation for an unknown secondary gain. Conversational speech was within normal rate and prosody. Eye contact was well maintained. Intellectual abilities appear to be average range. Attention and concentration are fair. Insight, judgment, impulse control are poor. 296.80 (F31.9) Unspecified Bipolar and Related Disorder, per history 292.9 (F19.99) Unspecified Substance related disorder. Impression\\plan: Patient is recommended for rescind of IVC is considered psychiatrically cleared for discharge. Patient denies suicidal homicidal ideation; she no longer meets criteria for IVC per [place] GS 122C. Patient has been seen on numerous occasions in this ED for pain; patient admits to substance abuse. Patient states she is open to receiving substance abuse treatment. Clinician provided outpatient and inpatient resource lists for substance abuse. Thought content is guarded and showing tendencies of manipulation for an unknown secondary gain; however, substance abuse could play a major role in this. Patient's agrees to help patient through with outpatient services for both her mental health and her substance abuse. Both patient and feel comfortable with discharge plan. Patient is psychiatrically cleared for discharge. Dr. Morales was consulted on care and management of this patient; attending physician is in agreement with recommendations and disposition.
--- NOTE | 2016-10-23 09:38 | ER Document Report ---
Doctor's Note Notes: 10/23/16 09:37 Rounds: Chart reviewed and patient interviewed. Patient no longer expresses suicidal thoughts this morning. Vital signs are all normal. Lab work was normal with exception of a minimally elevated white count of 12,400, but the patient has no signs or symptoms of infection. Patient appears to be medically stable for transfer or discharge. Mental health has assessed the patient feels she can be discharged for outpatient follow-up at [facility] next week. Rose Marcial M.D.
[2016-10-23 09:53] VITALS: BP 112/59
--- NOTE | 2016-10-23 10:20 | EKG REPORT ---
SEVERITY:- ABNORMAL ECG - SINUS RHYTHM VENTRICULAR PREMATURE COMPLEX CONSIDER LEFT VENTRICULAR HYPERTROPHY : Confirmed by: Isabell Rojas 23-Oct-2016 10:20:00
== END 2016-10-23 09:58 | disposition home or self-care (01) ==
LOC: ER 03:26
DX: T14.91 Suicide attempt (principal); X78.1XXA Intentional self-harm by knife, initial encounter; F31.9 Bipolar disorder, unspecified; Z79.899 Other long term (current) drug therapy; D72.829 Elevated white blood cell count, unspecified; I10 Essential (primary) hypertension; J45.909 Unspecified asthma, uncomplicated; F17.200 Nicotine dependence, unspecified, uncomplicated; Z88.5 Allergy status to narcotic agent; Z88.8 Allergy status to other drugs, medicaments and biological substances; Z91.040 Latex allergy status; Z88.0 Allergy status to penicillin
CPT/HCPCS: 36415; 80053; 80307; 81001; 84703; 85025; 93005; 93010; 99285

== ENCOUNTER 2016-11-13 08:00 | Day surgery (SDC) | payer MEDICAID ==
[2016-11-07 10:37] LABS: APPEARANCE,URINE SLIGHTLY-CLOUDY; BILIRUBIN,URINE NEGATIVE (NEGATIVE); GLUCOSE, URINE NEGATIVE (NEGATIVE); KETONES,URINE NEGATIVE (NEGATIVE); LEUKOCYTE ESTERASE,URINE NEGATIVE (NEGATIVE); NITRITE,URINE NEGATIVE (NEGATIVE); PROTEIN,URINE NEGATIVE (NEGATIVE); URINE SPECIFIC GRAVITY 1.018; UROBILINOGEN,URINE NEGATIVE mg/dL (<2.0)
[2016-11-07 10:47] LABS: ABSOLUTE EOSINOPHILS # (AUTO) 0.4 10^3/uL (0.0-0.6); ABSOLUTE LYMPHOCYTES (AUTO) 2.3 10^3/uL (0.5-4.7); ABSOLUTE MONOCYTES (AUTO) 0.7 10^3/uL (0.1-1.4); BASOPHILS % (AUTO) 0.2 % (0-2); EOSINOPHILS % (AUTO) 3.9 % (0-6); HEMATOCRIT 37.2 % (36.0-47.0); HGB HCT DIFFERENCE 1.8; MEAN CORPUSCULAR HEMOGLOBIN 29.6 pg (27.0-33.4); MEAN CORPUSCULAR HGB CONC 34.9 g/dL (32.0-36.0); MEAN CORPUSCULAR VOLUME 85 fl (80-97); MONOCYTES % (AUTO) 6.9 % (3-13); RED BLOOD COUNT 4.39 10^6/uL (3.72-5.28); RED CELL DISTRIBUTION WIDTH 14.2 % (11.5-14.0); WHITE BLOOD COUNT 10.4 10^3/uL (4.0-10.5)
[2016-11-07 11:04] LABS: ANION GAP 14 (5-19); BLOOD UREA NITROGEN 8 mg/dL (7-20); CALCIUM 9.5 mg/dL (8.4-10.2); CARBON DIOXIDE 29 mmol/L (22-30); CHLORIDE 101 mmol/L (98-107); CREATININE RESULT 0.51 mg/dL (0.52-1.25); GLUCOSE 89 mg/dL (75-110); SODIUM 144.3 mmol/L (137-145)
--- NOTE | 2016-11-07 18:09 | EKG REPORT ---
SEVERITY:- ABNORMAL ECG - SINUS RHYTHM CONSIDER LEFT VENTRICULAR HYPERTROPHY : Confirmed by: Jacobo Rios MD 07-Nov-2016 18:09:24
[~2016-11-13 08:00] MED LIST: CEFAZOLIN 2 GM/D5W RTU 2 GM/50 ML RTUPB IV PRN; CEFAZOLIN INJ 1 GM VIAL INJ PRN; DEXAMETHASONE SOD PHOSPHATE INJ 4 MG/1 ML VIAL ONE; LACTATED RINGERS 1000 ML IV PRN; LIDOCAINE 0.5% INJ-PF (5 MG/ML) 50 ML SDV SUBCUT PRN; METOCLOPRAMIDE HCL INJ/PF 10 MG/2 ML SDV ONE; ONDANSETRON HCL INJ/PF 4 MG/2 ML SDV ONE; SUCCINYLCHOLINE CHLORIDE INJ 200 MG/10 ML VIAL ONE
[2016-11-13] MEDS ORDERED: FENTANYL CITRATE INJ/PF 100 MCG/2 ML AMPUL ONE (09:20)
[2016-11-13] MEDS ORDERED: KETAMINE HCL INJ 500 MG/10 ML VIAL ONE (09:20)
[2016-11-13] MEDS ORDERED: MIDAZOLAM 2 MG/2 ML INJ ONE (09:20)
[2016-11-13] MEDS ORDERED: ACETAMINOPHEN 100 ML IV ONE (09:21)
[2016-11-13] MEDS ORDERED: PROPOFOL INJ 200 MG/20 ML VIAL IV ONE (09:21)
[2016-11-13] MEDS ORDERED: BUPIVACAINE HCL 0.5 % INJ/PF 30 ML SDV ONE (10:50)
[2016-11-13] MEDS ORDERED: HYDROMORPHONE HCL INJ/PF 2 MG/ML AMPULE ONE (10:52)
[2016-11-13] MEDS ORDERED: FENTANYL CITRATE INJ/PF 100 MCG/2 ML AMPUL IV PRN ×3 (11:32)
[2016-11-13] MEDS ORDERED: MEPERIDINE HCL/PF INJ 25 MG/1 ML DISP.SYRIN IV PRN (11:32)
[2016-11-13] MEDS ORDERED: PROMETHAZINE HCL INJ 25 MG/1 ML VIAL IV PRN ×2 (11:32)
[2016-11-13] MEDS ORDERED: OXYCODONE-ACETAMINOPHEN 5-325 MG TABLET PO PRN ×2 (11:59)
--- NOTE | 2016-11-13 11:59 | PDOC DISCHARGE SUMMARY ---
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 Crutches for safety Follow-up in 2 weeks. Prescriptions: Oxycodone HCl/Acetaminophen [Percocet 5-325 mg Tablet] 1 - 2 tab PO ASDIR PRN # 60 tablet PRN Reason: Discharge Diet: As Tolerated Respiratory Treatments at Home: Deep Breathing/Coughing Discharge Activity: No Driving, No Lifting/Push/Pulling, Slowly Increase Activity Home Care Assistance: None Needed Adaptive Devices on Discharge: Axillary Crutches Report the Following to Your Physician Immediately: Shortness of Breath, Vomiting, Increase in Pain, Fever over 101 Degrees, Unusual Bleeding, Redness, Warmth, Drainage-Yellow, Drainage-Green, Drainage-Foul Smelling, Numbness
[2016-11-13] MEDS: FENTANYL CITRATE INJ/PF 100 MCG/2 ML AMPUL ONE ×2 (12:00→12:05)
[2016-11-13 13:59] VITALS: BP 155/107
--- NOTE | 2016-12-10 13:15 | OPERATIVE REPORT E ---
Operative Report NAME: ANA CRISTINA VARGHESE : 1990 AGE: 26Y DATE OF SURGERY: 11/13/2016 ROOM: PREOPERATIVE DIAGNOSIS: Right ankle subluxing peroneal tendons. POSTOPERATIVE DIAGNOSIS: Right ankle subluxing peroneal tendons. OPERATION: Right peroneal retinacular repair with fibular groove deepening. SURGEON: NED BANKS M.D. ANESTHESIA: General. ESTIMATED BLOOD LOSS: 10 mL COMPLICATIONS: None. DISPOSITION: Stable to PACU. IMPLANT USED: Arthrex SutureTak. PROCEDURE: The patient was brought to the operating room, induced and intubated in supine position. Tourniquet was applied to the right thigh. Esmarch was used to exsanguinate the extremity and the tourniquet was inflated to 300 mmHg. A curvilinear incision posterior to the distal lateral malleolus was done with a 15 blade. The fascia was taken down with Metzenbaum scissors, exposing the retinaculum and peroneal tendons. This was excised with a 15 blade. We then proceeded to retract the peroneal tendons and use a sagittal saw to do the trapdoor and the groove. I cut on the medial and lateral aspect, and then on the superior aspect, and then used a bone tamp to compress the trap door made. I then proceeded to use a SutureTak and secured it on the lateral malleolus. I used that then to secure the redundant retinaculum, tightening the retinaculum over the peroneal tendon. I then proceeded to use *------* to reattach the remaining retinacular ligaments to the fibula. At this point, I turned my attention to closing the wound by using 0 Vicryl for the dermis and then 3-0 Nylon for the skin. Xeroform 4 x 4 dressing was applied followed by *------*. Tourniquet was let down. The patient was placed in a short leg cast. The patient was extubated and sent to PACU in stable condition. DICTATING PHYSICIAN: Waleska MUNSON [id number] PHY#: [id number] ID: [id number] JOB#: [id number] ACCT: [id number] cc:NED BANKS M.D. >
== END 2016-11-13 14:05 | disposition home or self-care (01) ==
LOC: OROUT 08:00
PROVIDERS: ATTEND Orthopaedic Surgery
PROC: 0MQQ0ZZ Repair Right Ankle Bursa and Ligament, Open Approach (ICD-10-PCS; principal; 2016-11-13 10:30)
DX: S86.39 Other injury of muscle(s) and tendon(s) of peroneal muscle group at lower leg level (principal); X58.XXXS Exposure to other specified factors, sequela; I10 Essential (primary) hypertension; Z88.0 Allergy status to penicillin; Z88.8 Allergy status to other drugs, medicaments and biological substances; Z91.040 Latex allergy status; Z87.891 Personal history of nicotine dependence
CPT/HCPCS: 93005; 36415; 84703; 85025; 81025; 80048; 81001; 71020; 93010; 27695; C1713; J2250; J1100; J3010; J3490; J2765; J1170; J2550; J0330; J2405; J2704; J0690; J0131; 1470

== ENCOUNTER 2016-11-15 03:23 | Emergency (ER) | payer MEDICAID ==
[2016-11-15] MEDS ORDERED: KETOROLAC TROMETHAMINE 60 MG/2 ML SDV IM ONE (04:38)
--- NOTE | 2016-11-15 06:19 | ER Document Report ---
ED Extremity Problem, Lower - General Chief Complaint: Ankle Pain Stated Complaint: ANKLE PAIN Mode of Arrival: Ambulatory Information source: Patient Notes: 26 y/o F presents to ED c/o right ankle pain. Pt reports had right ankle surgery 2 days ago with postop cast placement and has had pain since however yesterday evening pain became severe and has noted associated numbness to her toes. States was prescribed PRN Percocet per orthopedic surgeon however is not helping. Denies fever or color changes to toes. Denies new injury or trauma. TRAVEL OUTSIDE OF THE [place] IN LAST 30 DAYS: No - HPI Patient complains to provider of: Altered sensation, Pain Severity: Moderate Pain Level: 4 Context: Recent surgery Recent injury: No Exacerbated by: Hanging down, Movement Relieved by: Elevation, Rest - Related Data Allergies/Adverse Reactions: morphine [Morphine] Allergy (Severe, Verified 11/15/16 03:38) Difficulty breathing/itch diphenhydramine HCl [From Benadryl] Allergy (Intermediate, Verified 11/15/16 03: 38) RASH iodine [Iodine] Allergy (Intermediate, Verified 11/15/16 03:38) RASH latex [Latex] Allergy (Intermediate, Verified 11/15/16 03:38) RASH amoxicillin [Amoxicillin] Allergy (Unknown, Verified 11/15/16 03:38) Hives Penicillins Allergy (Unknown, Verified 11/15/16 03:38) Hives codeine Allergy (Verified 11/15/16 03:38) Hives Past Medical History - General Information source: Patient - Social History Smoking Status: Current Some Day Smoker Chew tobacco use (# tins/day): No Frequency of alcohol use: None Drug Abuse: None Lives with: Family Family History: None, Reviewed & Not Pertinent - Past Medical History Cardiac Medical History: Reports: Hx Hypertension - Not on medication Denies: Hx Coronary Artery Disease, Hx Heart Attack Pulmonary Medical History: Reports: Hx Asthma Denies: Hx Bronchitis, Hx COPD, Hx Pneumonia Neurological Medical History: Denies: Hx Cerebrovascular Accident, Hx Seizures Renal/ Medical History: Reports: Hx Pelvic Inflammatory Disease. Denies: Hx Peritoneal Dialysis Musculoskeltal Medical History: Denies Hx Arthritis Psychiatric Medical History: Reports: Hx Bipolar Disorder, Hx Depression, Hx Post Traumatic Stress Disorder Past Surgical History: Reports: Hx Oral Surgery - wisdom tooth removal 07/2016 - Immunizations Immunizations up to date: Yes Hx Diphtheria, Pertussis, Tetanus Vaccination: Yes Review of Systems - Review of Systems Constitutional: No symptoms reported EENT: No symptoms reported Cardiovascular: No symptoms reported Respiratory: No symptoms reported Gastrointestinal: No symptoms reported Genitourinary: No symptoms reported Female Genitourinary: No symptoms reported Musculoskeletal: See HPI Skin: No symptoms reported Hematologic/Lymphatic: No symptoms reported Neurological/Psychological: No symptoms reported -: Yes All other systems reviewed and negative Physical Exam - Vital signs Vitals: Temp Pulse Resp BP Pulse Ox 98.4 F 105 H 18 156/99 H 97 11/15/16 03:35 11/15/16 03:35 11/15/16 03:35 11/15/16 03:35 11/15/16 03:35 - General General appearance: Appears well, Alert In distress: None - Respiratory Respiratory status: No respiratory distress Chest status: Nontender Breath sounds: Normal Chest palpation: Normal - Cardiovascular Rhythm: Regular Heart sounds: Normal auscultation Murmur: No Pulses: Normal: Radial, Dorsalis pedis Normal capillary refill: Yes - Extremities General upper extremity: Normal inspection, Nontender, Normal color, Normal ROM , Normal strength, Normal temperature. No: Edema General lower extremity: Normal inspection, Nontender, Normal color, Normal ROM , Normal temperature, Normal weight bearing, Other - Patient has lower leg cast in place to right leg. Toes pink and warm with Immediate capillary refill intact however marked decreased gross and fine sensation. No erythema or bruising/cyanosis.. No: Edema Course - Re-evaluation Re-evalutation: 11/15/16 06:45 Patient hemodynamically stable, in no distress. Patient initially presented in significant pain to right lower leg/foot which she reports was mostly to the lateral aspect of the foot with associated decreased sensation. Capillary refill was intact. After consultation with ED physician Dr. Del Rio cast was cut in single straight line anteriorly with pressure relieved. Sensation return to the toes and subsequently had improvement in pain. There was no discoloration of the foot at any time and after examining the dorsal/anterior aspect of the foot and lower leg there does not appear to be concern for compartment syndrome or other complications at this time patient has immediate capillary refill, intact sensation, and palpable dorsalis pedis pulse. Cast was left in place and tape applied over the area that was cut for reinforcement. Orthopedist rn liaison for Dr. Pardo[facility] clinic was paged however no response to obtained. Encouraged patient to contact clinic tomorrow for follow- up appointment on Thursday morning. Patient appears stable for discharge and agrees with home care, follow-up, and ED return precautions. - Vital Signs Vital signs: Temp Pulse Resp BP Pulse Ox 98.4 F 105 H 18 156/99 H 97 11/15/16 03:35 11/15/16 03:35 11/15/16 03:35 11/15/16 03:35 11/15/16 03:35 - Diagnostic Test Radiology reviewed: Image reviewed, Reports reviewed Discharge - Discharge Clinical Impression: Cast discomfort Condition: Stable Disposition: HOME, SELF-CARE Instructions: Cast Precautions ([facility]), Elevate the Injury ([facility]), Pain Medication Injection ([facility]) Additional Instructions: Keep your leg elevated as much as possible to relieve the swelling and pressure. Take your prescribed pain medication if needed as directed. Follow-up with Orthopedics on Thursday. Call today for appointment. Return to the Emergency Department for any worsening symptoms or concerns. Forms: Elevated Blood Pressure Referrals: NED FOSTER MD [ACTIVE STAFF] - Follow up tomorrow
[2016-11-15] MEDS ORDERED: HYDROMORPHONE HCL INJ/PF 2 MG/ML AMPULE IM ONE (06:28)
[2016-11-15 07:00] VITALS: BP 119/74
== END 2016-11-15 06:58 | disposition home or self-care (01) ==
LOC: ER 03:23
DX: Z46.89 Encounter for fitting and adjustment of other specified devices (principal); M25.571 Pain in right ankle and joints of right foot; M79.671 Pain in right foot; R20.0 Anesthesia of skin; I10 Essential (primary) hypertension; J45.909 Unspecified asthma, uncomplicated; F17.200 Nicotine dependence, unspecified, uncomplicated; Z98.890 Other specified postprocedural states; Z88.5 Allergy status to narcotic agent; Z88.8 Allergy status to other drugs, medicaments and biological substances; Z91.040 Latex allergy status; Z88.0 Allergy status to penicillin
CPT/HCPCS: 99283; 96372; 73610; J1885; J1170

== ENCOUNTER 2017-01-28 21:04 | Emergency (ER) | payer MEDICAID ==
[2017-01-28] MEDS ORDERED: METOCLOPRAMIDE HCL INJ/PF 10 MG/2 ML SDV IV ONE (22:16)
[2017-01-28] MEDS ORDERED: KETOROLAC TROMETHAMINE INJ/PF 30 MG/1 ML SDV IV ONE (22:16)
[2017-01-28] MEDS ORDERED: NORMAL SALINE 1000 ML 1,000 ML IV ONE (22:17)
[2017-01-28 22:58] LABS: APPEARANCE,URINE SLIGHTLY-CLOUDY; BILIRUBIN,URINE NEGATIVE (NEGATIVE); GLUCOSE, URINE NEGATIVE (NEGATIVE); KETONES,URINE NEGATIVE (NEGATIVE); LEUKOCYTE ESTERASE,URINE SMALL (NEGATIVE); NITRITE,URINE NEGATIVE (NEGATIVE); PROTEIN,URINE NEGATIVE (NEGATIVE); URINE SPECIFIC GRAVITY 1.024; UROBILINOGEN,URINE NEGATIVE mg/dL (<2.0)
--- NOTE | 2017-01-28 23:00 | ER Document Report ---
ED General - General Chief Complaint: Allergic Reaction Stated Complaint: BACK PAIN/HEADACHE Time Seen by Provider: 01/28/17 22:03 Notes: Patient is a 26-year-old female presents with multiple complaints. First complaint is of a headache that has been ongoing for 2 days. She says that she had a Nexplanon implanted on January 14. She is unsure if it is related to this. She does have history of migraines. Patient the headache is very similar to her previous migraines except for is more intense than it typically is. Headache is been gradual in onset and gradually worsening over last 2 days. She has some photophobia. No focal weakness or numbness. Since second complaint is of some lower back pain as well as an abnormal vaginal discharge. She is sexually monogamous with her . They do not wear condoms. Injury to her back. No weakness or numbness into her legs. No difficulty having bowel movements. No urinary retention. No dysuria. TRAVEL OUTSIDE OF THE [place] IN LAST 30 DAYS: No - Related Data Allergies/Adverse Reactions: morphine [Morphine] Allergy (Severe, Verified 11/15/16 03:38) Difficulty breathing/itch diphenhydramine HCl [From Benadryl] Allergy (Intermediate, Verified 11/15/16 03: 38) RASH iodine [Iodine] Allergy (Intermediate, Verified 11/15/16 03:38) RASH latex [Latex] Allergy (Intermediate, Verified 11/15/16 03:38) RASH amoxicillin [Amoxicillin] Allergy (Unknown, Verified 11/15/16 03:38) Hives Penicillins Allergy (Unknown, Verified 11/15/16 03:38) Hives codeine Allergy (Verified 11/15/16 03:38) Hives Past Medical History - Social History Smoking Status: Unknown if Ever Smoked Frequency of alcohol use: None Drug Abuse: None Family History: None, Reviewed & Not Pertinent Patient has suicidal ideation: No Patient has homicidal ideation: No - Past Medical History Cardiac Medical History: Reports: Hx Hypertension - Not on medication Denies: Hx Coronary Artery Disease, Hx Heart Attack Pulmonary Medical History: Reports: Hx Asthma Denies: Hx Bronchitis, Hx COPD, Hx Pneumonia Neurological Medical History: Denies: Hx Cerebrovascular Accident, Hx Seizures Renal/ Medical History: Reports: Hx Pelvic Inflammatory Disease. Denies: Hx Peritoneal Dialysis Musculoskeltal Medical History: Denies Hx Arthritis Psychiatric Medical History: Reports: Hx Bipolar Disorder, Hx Depression, Hx Post Traumatic Stress Disorder Past Surgical History: Reports: Hx Oral Surgery - wisdom tooth removal 07/2016 - Immunizations Immunizations up to date: Yes Hx Diphtheria, Pertussis, Tetanus Vaccination: Yes Review of Systems - Review of Systems Notes: My Normal Review Basic REVIEW OF SYSTEMS: CONSTITUTIONAL : Denies fever, chills, or sweats. Denies recent illness. EENT: Denies eye, ear, throat, or mouth pain or symptoms. Denies nasal or sinus congestion. RESPIRATORY: Denies cough, cold, or chest congestion. Denies shortness of breath, difficulty breathing, or wheezing. GASTROINTESTINAL: Denies abdominal pain. Denies nausea, vomiting, or diarrhea. Denies constipation. Last BM: GENITOURINARY: Denies difficulty urinating, painful urination, burning, frequency, or blood in urine. FEMALE GENITOURINARY: Some abnormal vaginal discharge. MUSCULOSKELETAL: back pain SKIN: Denies rash or skin lesions. NEUROLOGICAL: Denies altered mental status or loss of consciousness. Has a headache. Denies weakness or paralysis or loss of use of either side. Denies problems with gait or speech. Denies sensory or motor loss. ALL OTHER SYSTEMS REVIEWED AND NEGATIVE. Physical Exam - Vital signs Vitals: Temp Pulse Resp BP Pulse Ox 98.2 F 97 20 155/102 H 99 01/28/17 21:09 01/28/17 21:09 01/28/17 21:09 01/28/17 21:09 01/28/17 21:09 - Notes Notes: General Appearance: Well nourished, alert, cooperative, no acute distress, no obvious discomfort. Well appearing. Vitals: reviewed, See vital signs table. Head: no swelling or tenderness to the head Eyes: PERRL, EOMI, Conjuctiva clear Mouth: No decreasd moisture Lungs: No wheezing, No rales, No rhonci, No accessory muscle use, good air exchange bilaterally. Heart: Normal rate, Regular rythm, No murmur, no rub Abdomen: Normal BS, soft, No rigidity, No abdominal tenderness, No guarding, no rebound, no abdominal masses, no organomegaly Pelvic: Normal external genitalia. No blood in vaginal vault. No abnormal discharge. No pain during exam. Back: No reproducible pain to palpation of the low back. Extremities: strength 5/5 in all extremities, good pulses in all extremities, no swelling or tenderness in the extremities, no edema. Skin: warm, dry, appropriate color, no rash Neuro: speech clear, oriented x 3, normal affect, responds appropriately to questions. Cranial Nerves II through XII are intact. Distal sensation intact. Patient moves all extremities without difficulty. No gait ataxia on exam. normal rhomberg. Course - Vital Signs Vital signs: Temp Pulse Resp BP Pulse Ox 98.2 F 97 20 155/102 H 99 01/28/17 21:09 01/28/17 21:09 01/28/17 21:09 01/28/17 21:09 01/28/17 21:09 - Laboratory Laboratory results interpreted by me: 01/28/17 22:26 Urine Blood MODERATE H Ur Leukocyte Esterase SMALL H - Transfer of Care Notes: 01/28/17 23:44 Patient feels improved. Her headache is not consistent with subarachnoid. It has been gradually on sitting over last 2 days. She has a history of migraines. She has no focal neurologic deficits. Her back pain is not reproduced with palpation. She has no redness or warmth to the back. She denies IV drug abuse. She has no weakness or numbness into her legs. No loss of bowel control. No need for imaging at this time. She did complain of some abnormal vaginal discharge. I saw none on exam. Her wet prep is negative. Gonorrhea and Chlamydia are pending. Patient will be discharged home with medication for her headache. She is encouraged to return to ER if she has worsening of any of her symptoms. Patient agrees with plan and will be discharged home. Dictation of this chart was performed using voice recognition software; therefore, there may be some unintended grammatical errors. Discharge - Discharge Clinical Impression: Headache Qualifiers: Headache type: unspecified Headache chronicity pattern: episodic headache Intractability: not intractable Qualified Code(s): R51 - Headache Back pain Qualifiers: Back pain location: low back pain Chronicity: acute Back pain laterality: midline Sciatica presence: without sciatica Qualified Code(s): M54.5 - Low back pain Condition: Good Disposition: HOME, SELF-CARE Additional Instructions: Please do not drive after taking the reglan. Please return to the ER if you have worsening headaches, abdominal pain, worsening bach pain, fevers, vomiting , leg weakness or numbness, or if you are feeling worse in any way. Follow up with your doctor in 2-3 days for reevaluation. Prescriptions: Ketorolac Tromethamine [Toradol 10 mg Tablet] 10 mg PO Q8HP PRN #10 tablet PRN Reason: Metoclopramide HCl [Reglan 10 mg Tablet] 1 tab PO ASDIR PRN #25 tablet PRN Reason: Forms: Return to Work
[2017-01-28 23:48] VITALS: BP 149/95
[2017-01-29 00:36] LABS: CHLAM PCR NOT DETECTED (NOT DETECT)
== END 2017-01-28 23:48 | disposition home or self-care (01) ==
LOC: ER 21:04
DX: R51 Headache (principal); M54.5 Low back pain; T78.40XA Allergy, unspecified, initial encounter; M54.9 Dorsalgia, unspecified
CPT/HCPCS: 99283; 96361; 96374; 96375; 87210; 81025; 81001; 87491; 87591; J1885; J2765; J7030

== ENCOUNTER 2017-02-10 07:08 | Emergency (ER) | payer OTHER, MEDICAID ==
--- NOTE | 2017-02-10 08:10 | ER Document Report ---
ED Neck/Back Problem - General Mode of Arrival: Ambulatory Information source: Patient TRAVEL OUTSIDE OF THE [place] IN LAST 30 DAYS: No - HPI Patient complains to provider of: Lower back Onset: Just prior to arrival Severity: None Associated symptoms: None - General Chief Complaint: Back Pain Stated Complaint: BACK PAIN Time Seen by Provider: 02/10/17 07:19 Notes: Patient is a 26-year-old female who presents to the emergency department today with complaints of low back pain. Patient states she had the Nexplanon implanted a few weeks ago and she has had back pain ever since and she is unsure if these are correlated. Patient states she works at [employer] so she is constantly on her feet. Patient states she notices when she raises her right leg, this exacerbates her pain. Patient denies any numbness, tingling, nausea, vomiting, diarrhea, cough, fall or trauma. (MERLIN GARDNER) - Related Data Allergies/Adverse Reactions: morphine [Morphine] Allergy (Severe, Verified 02/10/17 07:10) Difficulty breathing/itch diphenhydramine HCl [From Benadryl] Allergy (Intermediate, Verified 02/10/17 07: 10) RASH iodine [Iodine] Allergy (Intermediate, Verified 02/10/17 07:10) RASH latex [Latex] Allergy (Intermediate, Verified 02/10/17 07:10) RASH amoxicillin [Amoxicillin] Allergy (Unknown, Verified 02/10/17 07:10) Hives Penicillins Allergy (Unknown, Verified 02/10/17 07:10) Hives codeine Allergy (Verified 02/10/17 07:10) Hives Past Medical History - General Information source: Patient - Social History Smoking Status: Never Smoker Cigarette use (# per day): No Frequency of alcohol use: None Drug Abuse: None Lives with: Family Family History: None, Reviewed & Not Pertinent - Past Medical History Cardiac Medical History: Reports: Hx Hypertension - Not on medication Pulmonary Medical History: Reports: Hx Asthma Renal/ Medical History: Reports: Hx Pelvic Inflammatory Disease Psychiatric Medical History: Reports: Hx Bipolar Disorder, Hx Depression, Hx Post Traumatic Stress Disorder Past Surgical History: Reports: Hx Oral Surgery - wisdom tooth removal 07/2016 - Immunizations Immunizations up to date: Yes Hx Diphtheria, Pertussis, Tetanus Vaccination: Yes Review of Systems - Review of Systems Constitutional: No symptoms reported EENT: No symptoms reported Cardiovascular: No symptoms reported Respiratory: denies: Cough Gastrointestinal: denies: Diarrhea, Nausea, Vomiting Genitourinary: No symptoms reported Female Genitourinary: No symptoms reported Musculoskeletal: See HPI, Back pain Skin: No symptoms reported Hematologic/Lymphatic: No symptoms reported Neurological/Psychological: denies: Numbness, Tingling -: Yes All other systems reviewed and negative Physical Exam - Vital signs Vitals: Temp Pulse Resp BP Pulse Ox 98.7 F 58 L 16 134/90 H 99 02/10/17 08:41 02/10/17 08:41 02/10/17 08:41 02/10/17 08:41 02/10/17 08:41 - Notes Notes: Physical Exam: General: Alert, appears well. HEENT: Normocephalic. Atraumatic. PERRL. Extraocular movements intact. Oropharynx clear. Neck: Supple. Non-tender. Respiratory: No respiratory distress. Clear and equal breath sounds bilaterally. Cardiovascular: Regular rate and rhythm. Abdominal: Normal Inspection. Non-tender. No distension. Normal Bowel Sounds. Back: Lumbosacral tenderness with palpation, positive straight leg raise on the right. No deformity or step off. Extremities: Moves all four extremities. Upper extremities: Normal inspection. Normal ROM. Lower extremities: Normal inspection. No edema. Normal ROM. Neurological: Normal cognition. AAOx4. Normal speech. Psychological: Normal affect. Normal Mood. Skin: Warm. Dry. Normal color. (MERLIN GARDNER) Course - Re-evaluation Re-evalutation: 02/10/17 08:16 Presents emergency department chief complaint right-sided back pain into her buttocks going down to her leg to her knee but not past has been going on for 2- 3 weeks denies any known injury pain is not midline cervical thoracic or lumbar but rather when I palpate on exam his right down at the base of the sciatic nerve on the right side and has a positive straight leg raise test. No history of fever flank pain urinary symptoms vomiting abdominal pain kidney stone fevers chills or change in appetite. She denies that she has a has control.. Good pulses and perfusion no acute clinical concern for pulmonary emboli or DVT. Going ahead and start her on prednisone Richardson she follows up with Martha Granado 100 a follow-up with him at the end of this week. Also instructed her on stretching exercises at this moment in time she does not require an x-ray there is no history of trauma nor does she require an MRI. She verbalized understanding of this discharge follow-up discuss specific reasons for ED return (VICKI NEGRO) - Vital Signs Vital signs: Temp Pulse Resp BP Pulse Ox 98.7 F 58 L 16 134/90 H 99 02/10/17 08:41 02/10/17 08:41 02/10/17 08:41 02/10/17 08:41 02/10/17 08:41 Discharge - Discharge Clinical Impression: Sciatica Qualifiers: Laterality: right Qualified Code(s): M54.31 - Sciatica, right side Condition: Stable Disposition: HOME, SELF-CARE Additional Instructions: Sciatica Your symptoms suggest "sciatica." The pain of sciatica typically radiates down the leg. Numbness in the foot or calf may also occur. Sciatica is caused by irritation of the sciatic nerve or its branches. The irritation can be due to a herniated disk in the spine, swelling and inflammation in the muscles surrounding the sciatic nerve, or direct injury of the nerve itself. Most cases of sciatica will resolve with medical treatment. Bed rest is usually recommended initially. Surgery is only necessary when the condition will not improve with rest and antiinflammatory medication. Muscle relaxers are often given if muscle soreness is present. A CAT scan of the back may be performed if a herniated disk is suspected. Re-examination is necessary if you develop increasing numbness, localized weakness in the foot or ankle, or if the pain does not respond to rest. Follow-up with your blue team physicians at [facility] in 3-5 days return for increasing worsening any symptoms Prescriptions: Hydrocodone/Acetaminophen [Richardson 5-325 mg Tablet] 1 tab PO Q4 PRN #12 tablet PRN Reason: Prednisone [Deltasone 20 mg Tablet] 3 tab PO DAILY 5 Days Scribe Attestation: 02/10/17 08:16 I personally performed the services described in the documentation reviewed the documentation recorded by my scribe in my presence and it accurately and completely records my words and actions (VICKI NEGRO) Scribe Documentation - Scribe Written by Clay:: Clay Alexander, 02/10/2017 1341 acting as scribe for :: Vicente
[2017-02-10 08:43] VITALS: BP 134/90
== END 2017-02-10 08:41 | disposition home or self-care (01) ==
LOC: ER 07:08
DX: M54.31 Sciatica, right side (principal); Z88.6 Allergy status to analgesic agent; Z91.040 Latex allergy status; Z88.0 Allergy status to penicillin
CPT/HCPCS: 99283

== ENCOUNTER 2017-02-24 11:27 | Emergency (ER) | payer OTHER, MEDICAID ==
--- NOTE | 2017-02-24 12:05 | ER Document Report ---
ED General - General Stated Complaint: CHEST PAIN,HEADACHE Mode of Arrival: Ambulatory Information source: Patient Notes: 26-year-old female had an Implanon placed 1 month ago presents with complaints of nervousness depression chest pain since it was placed. Patient denies any shortness breath or chest pain throughout the day notes it occurs at nighttime TRAVEL OUTSIDE OF THE [place] IN LAST 30 DAYS: No - HPI Onset: Just prior to arrival Onset/Duration: Sudden Quality of pain: No pain Severity: None Pain Level: Denies Associated symptoms: None Exacerbated by: Denies Relieved by: Denies Similar symptoms previously: Yes Recently seen / treated by doctor: Yes - Related Data Allergies/Adverse Reactions: morphine [Morphine] Allergy (Severe, Verified 02/10/17 07:10) Difficulty breathing/itch diphenhydramine HCl [From Benadryl] Allergy (Intermediate, Verified 02/10/17 07: 10) RASH iodine [Iodine] Allergy (Intermediate, Verified 02/10/17 07:10) RASH latex [Latex] Allergy (Intermediate, Verified 02/10/17 07:10) RASH amoxicillin [Amoxicillin] Allergy (Unknown, Verified 02/10/17 07:10) Hives Penicillins Allergy (Unknown, Verified 02/10/17 07:10) Hives codeine Allergy (Verified 02/10/17 07:10) Hives Past Medical History - Social History Smoking Status: Never Smoker Cigarette use (# per day): No Chew tobacco use (# tins/day): No Smoking Education Provided: No Family History: None, Reviewed & Not Pertinent - Past Medical History Cardiac Medical History: Reports: Hx Hypertension - Not on medication Denies: Hx Coronary Artery Disease, Hx Heart Attack Pulmonary Medical History: Reports: Hx Asthma Denies: Hx Bronchitis, Hx COPD, Hx Pneumonia Neurological Medical History: Denies: Hx Cerebrovascular Accident, Hx Seizures Renal/ Medical History: Reports: Hx Pelvic Inflammatory Disease. Denies: Hx Peritoneal Dialysis Musculoskeltal Medical History: Denies Hx Arthritis Psychiatric Medical History: Reports: Hx Bipolar Disorder, Hx Depression, Hx Post Traumatic Stress Disorder Past Surgical History: Reports: Hx Oral Surgery - wisdom tooth removal 07/2016 - Immunizations Immunizations up to date: Yes Hx Diphtheria, Pertussis, Tetanus Vaccination: Yes Review of Systems - Review of Systems Notes: REVIEW OF SYSTEMS: CONSTITUTIONAL : Denies fever, chills, or sweats. Denies recent illness. EENT: Denies eye, ear, throat, or mouth pain or symptoms. Denies nasal or sinus congestion or discharge. Denies throat, tongue, or mouth swelling or difficulty swallowing. CARDIOVASCULAR: Admits to chest pain RESPIRATORY: Denies cough, cold, or chest congestion. Denies shortness of breath, difficulty breathing, or wheezing. GASTROINTESTINAL: Denies abdominal pain or distention. Denies nausea, vomiting , or diarrhea. Denies blood in vomitus, stools, or per rectum. Denies black, tarry stools. Denies constipation. GENITOURINARY: Denies difficulty urinating, painful urination, burning, frequency, blood in urine, or discharge. FEMALE GENITOURINARY: Denies vaginal bleeding, heavy or abnormal periods, irregular periods. Denies vaginal discharge or odor. MUSCULOSKELETAL: Denies back or neck pain or stiffness. Denies joint pain or swelling. SKIN: Denies rash, lesions or sores. HEMATOLOGIC : Denies easy bruising or bleeding. LYMPHATIC: Denies swollen, enlarged glands. NEUROLOGICAL: admit ot headache PSYCHIATRIC: admits ot anxiety ALL OTHER SYSTEMS REVIEWED AND NEGATIVE. PHYSICAL EXAMINATION: GENERAL: Well-appearing, well-nourished and in no acute distress. HEAD: Atraumatic, normocephalic. EYES: Pupils equal round and reactive to light, extraocular movements intact, conjunctiva are normal. ENT: Nares patent, oropharynx clear without exudates. Moist mucous membranes. NECK: Normal range of motion, supple without lymphadenopathy LUNGS: Breath sounds clear to auscultation bilaterally and equal. No wheezes rales or rhonchi. HEART: Regular rate and rhythm without murmurs ABDOMEN: Soft, nontender, nondistended abdomen. No guarding, no rebound. No masses appreciated. Female : deferred Musculoskeletal: Normal range of motion, no pitting or edema. No cyanosis. NEUROLOGICAL: Cranial nerves grossly intact. Normal speech, normal gait. Normal sensory, motor exams PSYCH: Normal mood, normal affect. SKIN: Warm, Dry, normal turgor, no rashes or lesions noted. Dictation was performed using i-drive voice recognition software Physical Exam - Vital signs Vitals: Temp Pulse Resp BP Pulse Ox 98.1 F 98 16 154/104 H 100 02/24/17 11:35 02/24/17 11:35 02/24/17 11:35 02/24/17 11:35 02/24/17 11:35 Course - Re-evaluation Re-evalutation: 02/24/17 12:08 Patient had left without being seen just a few minutes prior, then went to [facility] who sent her here to be evaluated, I will evaluate her for her headache and her chest pain 02/24/17 13:36 Patient otherwise is in no distress imaging is normal will discharge home After performing a Medical Screening Examination, I estimate there is LOW risk for RUPTURED ESOPHAGUS, PNEUMOTHORAX, PULMONARY EMBOLISM, ACUTE CORONARY SYNDROME, OR THORACIC AORTIC DISSECTION, thus I consider the discharge disposition reasonable. I have reevaluated this patient multiple times and no significant life threatening changes are noted. The patient and I have discussed the diagnosis and risks, and we agree with discharging home with close follow-up. We also discussed returning to the Emergency Department immediately if new or worsening symptoms occur. We have discussed the symptoms which are most concerning (e.g., bloody sputum, worsening pain or shortness of breath) that necessitate immediate return. - Vital Signs Vital signs: Temp Pulse Resp BP Pulse Ox 98.1 F 98 16 154/104 H 100 02/24/17 11:35 02/24/17 11:35 02/24/17 11:35 02/24/17 11:35 02/24/17 11:35 Discharge - Discharge Clinical Impression: Chest pain Qualifiers: Chest pain type: unspecified Qualified Code(s): R07.9 - Chest pain, unspecified Headache Qualifiers: Headache type: unspecified Headache chronicity pattern: episodic headache Intractability: not intractable Qualified Code(s): R51 - Headache Condition: Stable Disposition: ADMITTED INPATIENT Referrals: GLENN ROSS MD [Primary Care Provider] - Follow up tomorrow
--- NOTE | 2017-02-24 13:03 | RADIOLOGY REPORT (SQ) ---
EXAM DESCRIPTION: CHEST PA/LAT COMPLETED DATE/TIME: 02/24/2017 12:46 pm REASON FOR STUDY: chest pain COMPARISON: 03/28/2016 EXAM PARAMETERS: NUMBER OF VIEWS: two views TECHNIQUE: Digital Frontal and Lateral radiographic views of the chest acquired. RADIATION DOSE: NA LIMITATIONS: none FINDINGS: LUNGS AND PLEURA: No opacities, masses or pneumothorax. No pleural effusion. MEDIASTINUM AND HILAR STRUCTURES: No masses or contour abnormalities. HEART AND VASCULAR STRUCTURES: Heart normal size. No evidence for failure. BONES: No acute findings. HARDWARE: None in the chest. OTHER: No other significant finding. IMPRESSION: NO SIGNIFICANT RADIOGRAPHIC FINDING IN THE CHEST. TECHNICAL DOCUMENTATION: JOB ID: [id number] [employer]- All Rights Reserved
--- NOTE | 2017-02-24 19:03 | EKG REPORT ---
SEVERITY:- NORMAL ECG - SINUS RHYTHM : Confirmed by: Jacobo Rios MD 24-Feb-2017 19:02:34
[2017-02-25 14:00] VITALS: BP 143/88
== END 2017-02-24 13:36 | disposition other institution (70) ==
LOC: ER 11:27
DX: R07.9 Chest pain, unspecified (principal); R51 Headache; I10 Essential (primary) hypertension; Z88.6 Allergy status to analgesic agent; Z91.040 Latex allergy status; Z88.0 Allergy status to penicillin
CPT/HCPCS: 36415; 71020; 85379; 93005; 93010; 99285

== ENCOUNTER 2017-03-05 19:14 | Emergency (ER) | payer OTHER, MEDICAID ==
[2017-03-05] MEDS ORDERED: ACETAMINOPHEN 325 MG TABLET PO ONE (19:50)
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
[2017-03-05 20:59] VITALS: BP 146/88
== END 2017-03-05 20:45 | disposition home or self-care (01) ==
LOC: ER 19:14
DX: S43.402A Unspecified sprain of left shoulder joint, initial encounter (principal); W16.622A Jumping or diving into natural body of water striking bottom causing other injury, initial encounter; Y93.39 Activity, other involving climbing, rappelling and jumping off; Y92.89 Other specified places as the place of occurrence of the external cause; B85.0 Pediculosis due to Pediculus humanus capitis; I10 Essential (primary) hypertension; J45.909 Unspecified asthma, uncomplicated
CPT/HCPCS: 99283

== ENCOUNTER 2017-05-02 22:03 | Inpatient (IN) | payer MEDICAID, OTHER ==
[2017-05-02] MEDS ORDERED: IBUPROFEN 600 MG TABLET PO ONE (22:18)
[2017-05-02] MEDS ORDERED: NORMAL SALINE 1000 ML 1,000 ML IV PRN (22:36)
[2017-05-02] MEDS ORDERED: IMIPENEM/CILASTATIN SODIUM INJ 500 MG VIAL IV ONE (22:39)
[2017-05-02 22:43] LABS: ABSOLUTE EOSINOPHILS # (AUTO) 0.1 10^3/uL (0.0-0.6); ABSOLUTE LYMPHOCYTES (AUTO) 1.6 10^3/uL (0.5-4.7); ABSOLUTE MONOCYTES (AUTO) 1.1 10^3/uL (0.1-1.4); ABSOLUTE NEUT (AUTO) 14.9 10^3/uL (1.7-8.2); BASOPHILS % (AUTO) 0.2 % (0-2); EOSINOPHILS % (AUTO) 0.5 % (0-6); HEMOGLOBIN 12.3 g/dL (12.0-15.5); HGB HCT DIFFERENCE 1.9; LYMPHOCYTES % (AUTO) 8.9 % (13-45); MEAN CORPUSCULAR HEMOGLOBIN 29.9 pg (27.0-33.4); MEAN CORPUSCULAR HGB CONC 35.1 g/dL (32.0-36.0); MEAN CORPUSCULAR VOLUME 85 fl (80-97); MONOCYTES % (AUTO) 6.2 % (3-13); RED BLOOD COUNT 4.12 10^6/uL (3.72-5.28); RED CELL DISTRIBUTION WIDTH 13.1 % (11.5-14.0); SEGMENTED NEUTROPHILS % (AUTO) 84.2 % (42-78); WHITE BLOOD COUNT 17.7 10^3/uL (4.0-10.5)
[2017-05-02 22:45] LABS: VENOUS BLOOD BASE EXCESS -2.2 mmol/L; VENOUS BLOOD HCO3 21.3 mmol/L (20-32); VENOUS BLOOD PCO2 32.3 mmHg (35-63); VENOUS BLOOD PH 7.44 (7.30-7.42)
[2017-05-02] MEDS: NORMAL SALINE 1000 ML 1,000 ML IV PRN (22:47)
[2017-05-02 22:49] LABS: PROTHROMBIN TIME 13.4 SEC (11.4-15.4)
[2017-05-02] MEDS ORDERED: FENTANYL CITRATE INJ/PF 100 MCG/2 ML AMPUL IV ONE ×2 (22:54→23:51)
[2017-05-02 22:57] LABS: ALANINE AMINOTRANSFERASE 55 U/L (9-52); ALBUMIN 3.9 g/dL (3.5-5.0); ALKALINE PHOSPHATASE 95 U/L (38-126); ANION GAP 12 (5-19); ASPARTATE AMINO TRANSFERASE 26 U/L (14-36); BILIRUBIN,DIRECT 0.4 mg/dL (0.0-0.4); BILIRUBIN,TOTAL 0.6 mg/dL (0.2-1.3); BLOOD UREA NITROGEN 6 mg/dL (7-20); CALCIUM 8.8 mg/dL (8.4-10.2); CARBON DIOXIDE 22 mmol/L (22-30); CHLORIDE 106 mmol/L (98-107); CREATININE RESULT 0.73 mg/dL (0.52-1.25); GLUCOSE 109 mg/dL (75-110); POTASSIUM 3.6 mmol/L (3.6-5.0); SODIUM 139.9 mmol/L (137-145)
--- NOTE | 2017-05-02 23:52 | RADIOLOGY REPORT (SQ) ---
EXAM DESCRIPTION: CT ABD/PELVIS WITH IV ONLY COMPLETED DATE/TIME: 05/02/2017 11:38 pm REASON FOR STUDY: rlq pain COMPARISON: None. TECHNIQUE: CT scan of the abdomen and pelvis performed using helical scanning technique with dynamic intravenous contrast injection. No oral contrast. Images reviewed with lung, soft tissue, and bone windows. Reconstructed coronal and sagittal MPR images reviewed. 05/28/2016 All images stored on PACS . All CT scanners at this facility use dose modulation, iterative reconstruction, and/or weight based d osing when appropriate to reduce radiation dose to as low as reasonably achievable (ALARA). [facility]: Dose Right [facility]: CareDose [facility]: Dose Right [facility]: Teradose 4D [facility]: LilaKutu CONTRAST TYPE AND DOSE: contrast/concentration: Isovue 370.00 mg/ml; Total Contrast Delivered: 89.0 ml; Total Saline Delivered: 70.0 ml RENAL FUNCTION: BUN 6; creatinine 0.73 RADIATION DOSE: Up-to-date CT equipment and radiation dose reduction techniques were employed. CTDIv ol: 11.6 - 15.6 mGy. DLP: 1429 mGy-cm.. LIMITATIONS: None. FINDINGS: LOWER CHEST: No significant findings. No nodules or infiltrates. LIVER: Normal size. No masses. No dilated ducts. SPLEEN: Normal size. No focal lesions. PANCREAS: No masses. No significant calcifications. No adjacent inflammation or peripancreatic fluid collections. Pancreatic duct not dilated. GALLBLADDER: No identified stones by CT criteria. No inflammatory changes to suggest cholecystitis. ADRENAL GLANDS: No significant masses or asymmetry. RIGHT KIDNEY AND URETER: No solid masses. No significant calcifications. No hydronephrosis or hyd roureter. LEFT KIDNEY AND URETER: No solid masses. No significant calcifications. No hydronephrosis or hydr oureter. AORTA AND VESSELS: No aneurysm. No dissection. Renal arteries, SMA, celiac without stenosis. RETROPERITONEUM: No retroperitoneal adenopathy, hemorrhage or masses. BOWEL AND PERITONEAL CAVITY: No masses or inflammatory changes. No free fluid or peritoneal masses. APPENDIX: Not visualized. PELVIS: No mass. No free fluid. Normal bladder. ABDOMINAL WALL: No masses. No hernias. BONES: No significant or acute findings. OTHER: No other significant finding. IMPRESSION: NO SIGNIFICANT OR ACUTE FINDING IN THE ABDOMEN OR PELVIS ON CT SCAN WITH IV CONTRAST. TECHNICAL DOCUMENTATION: JOB ID: [id number] Quality ID # [id number]: Final reports with documentation of one or more dose reduction techniques (e.g., Au tomated exposure control, adjustment of the mA and/or kV according to patient size, use of iterative reconstruction technique) 2010 [employer]- All Rights Reserved
[2017-05-03 00:03] LABS: APPEARANCE,URINE CLEAR; BILIRUBIN,URINE NEGATIVE (NEGATIVE); GLUCOSE, URINE NEGATIVE (NEGATIVE); KETONES,URINE NEGATIVE (NEGATIVE); LEUKOCYTE ESTERASE,URINE NEGATIVE (NEGATIVE); NITRITE,URINE NEGATIVE (NEGATIVE); PROTEIN,URINE NEGATIVE (NEGATIVE); UROBILINOGEN,URINE NEGATIVE mg/dL (<2.0)
--- NOTE | 2017-05-03 00:08 | ER Document Report ---
ED GI/ - General Chief Complaint: Fever Stated Complaint: RIGHT FLANK PAIN Time Seen by Provider: 05/02/17 22:17 Mode of Arrival: Stretcher Information source: Patient TRAVEL OUTSIDE OF THE [place] IN LAST 30 DAYS: No - HPI Patient complains to provider of: Abdominal pain Onset: Other - 3 days Timing/Duration: Persistent Quality of pain: Achy, Cramping Severity at maximum: Moderate Severity in ED: Moderate Pain Level: 4 Location: RLQ Vaginal bleeding (Compared to normal period): Spotting Associated symptoms: Fever, Loss of appetite, Nausea Notes: 05/03/17 00:06 Patient is a 26-year-old female brought by EMS for complaints of right lower quadrant abdominal pain with no appetite, nausea and fever, symptoms started 2- 3 days ago and have worsened, she states she was recently seen at [facility] for similar concerns and was told she might have PID but they did not treat her with antibiotics pending her culture results, she denies any vaginal discharge but has had some vaginal spotting recently, has a Norplanon implant, also takes oral control for irregular vaginal bleeding, she denies any vomiting, no diarrhea 05/03/17 03:25 - Related Data Allergies/Adverse Reactions: morphine [Morphine] Allergy (Severe, Verified 03/05/17 19:16) Difficulty breathing/itch diphenhydramine HCl [From Benadryl] Allergy (Intermediate, Verified 03/05/17 19: 16) RASH iodine [Iodine] Allergy (Intermediate, Verified 03/05/17 19:16) RASH latex [Latex] Allergy (Intermediate, Verified 03/05/17 19:16) RASH amoxicillin [Amoxicillin] Allergy (Unknown, Verified 03/05/17 19:16) Hives Penicillins Allergy (Unknown, Verified 03/05/17 19:16) Hives codeine Allergy (Verified 03/05/17 19:16) Hives Past Medical History - General Information source: Patient - Social History Smoking Status: Unknown if Ever Smoked Family History: None, Reviewed & Not Pertinent - Past Medical History Cardiac Medical History: Reports: Hx Hypertension - Not on medication Denies: Hx Coronary Artery Disease, Hx Heart Attack Pulmonary Medical History: Reports: Hx Asthma Denies: Hx Bronchitis, Hx COPD, Hx Pneumonia Neurological Medical History: Denies: Hx Cerebrovascular Accident, Hx Seizures Renal/ Medical History: Reports: Hx Pelvic Inflammatory Disease. Denies: Hx Peritoneal Dialysis Musculoskeltal Medical History: Denies Hx Arthritis Psychiatric Medical History: Reports: Hx Bipolar Disorder, Hx Depression, Hx Post Traumatic Stress Disorder Past Surgical History: Reports: Hx Oral Surgery - wisdom tooth removal 07/2016 - Immunizations Immunizations up to date: Yes Hx Diphtheria, Pertussis, Tetanus Vaccination: Yes Review of Systems - Review of Systems Constitutional: Fever EENT: No symptoms reported Cardiovascular: No symptoms reported Respiratory: No symptoms reported Gastrointestinal: See HPI Genitourinary: No symptoms reported Female Genitourinary: No symptoms reported Musculoskeletal: No symptoms reported Skin: No symptoms reported Hematologic/Lymphatic: No symptoms reported Neurological/Psychological: No symptoms reported -: Yes All other systems reviewed and negative Physical Exam - Vital signs Vitals: Resp Pulse Ox 20 98 05/02/17 22:25 05/02/17 22:25 Interpretation: Tachycardic, Febrile - General General appearance: Appears well, Alert - HEENT Head: Normocephalic, Atraumatic Eyes: Normal Pupils: PERRL - Respiratory Respiratory status: No respiratory distress Chest status: Nontender Breath sounds: Normal Chest palpation: Normal - Cardiovascular Rhythm: Regular, Tachycardia Heart sounds: Normal auscultation Murmur: No - Abdominal Inspection: Normal Distension: No distension Bowel sounds: Normal Tenderness: Tender - Right lower quadrant Organomegaly: No organomegaly - Genitourinary External exam: Normal Speculum exam: Cervix closed. No: Cervix open, Vaginal discharge Vaginal bleeding: Mild Bimanuel exam: Normal - Back Back: Normal, Nontender - Extremities General upper extremity: Normal inspection, Nontender, Normal color, Normal ROM , Normal temperature General lower extremity: Normal inspection, Nontender, Normal color, Normal ROM , Normal temperature, Normal weight bearing. No: Rashida's sign - Neurological Neuro grossly intact: Yes Cognition: Normal Orientation: AAOx4 Celi Coma Scale Eye Opening: Spontaneous [place] Coma Scale Verbal: Oriented [place] Coma Scale Motor: Obeys Commands Celi Coma Scale Total: 15 Speech: Normal Motor strength normal: LUE, RUE, LLE, RLE Sensory: Normal - Psychological Associated symptoms: Normal affect, Normal mood - Skin Skin Temperature: Warm Skin Moisture: Dry Skin Color: Normal Course - Re-evaluation Re-evalutation: 05/03/17 03:09 Patient was discussed with on-call surgeon, Dr. Contreras who agrees to admit, requested patient be kept n.p.o. when he will see her first thing in the morning - Vital Signs Vital signs: Temp Pulse Resp BP Pulse Ox 98.6 F 17 117/82 100 05/03/17 03:14 05/03/17 03:00 05/03/17 02:29 05/03/17 03:00 - Laboratory Result Diagrams: 05/02/17 22:28 05/02/17 22:28 Laboratory results interpreted by me: 05/02/17 05/02/17 05/02/17 03:47 22:28 22:28 WBC 17.7 H Hct 35.0 L Seg Neutrophils % 84.2 H Lymphocytes % 8.9 L Absolute Neutrophils 14.9 H VBG pH VBG pCO2 BUN 6 L ALT 55 H Urine Blood LARGE H 05/02/17 22:28 WBC Hct Seg Neutrophils % Lymphocytes % Absolute Neutrophils VBG pH 7.44 H VBG pCO2 32.3 L BUN ALT Urine Blood - Diagnostic Test Radiology reviewed: Image reviewed, Reports reviewed Critical Care Note - Critical Care Note Total time excluding time spent on procedures (mins): 60 Comments: Patient febrile and tachycardic with right lower quadrant pain, concern for sepsis, requiring multiple fluid boluses, eventually admitted to surgicalist for acute appendicitis Discharge - Discharge Clinical Impression: SIRS (systemic inflammatory response syndrome) Acute appendicitis Qualifiers: Acute appendicitis type: with localized peritonitis Qualified Code(s): K35.3 - Acute appendicitis with localized peritonitis Condition: Stable Disposition: ADMITTED INPATIENT Admitting Provider: Surgicalist Unit Admitted: Surgical Floor Sepsis - Vital Signs Vitals: Temp Pulse Resp BP Pulse Ox 98.6 F 17 117/82 100 05/03/17 03:14 05/03/17 03:00 05/03/17 02:29 05/03/17 03:00 Interpretation: Tachycardic - Cardiovascular Peripheral Pulse Strength: Normal Capillary refill: < 3 seconds Rhythm: Regular, Tachycardia Heart Sounds: Normal auscultation - Respiratory Breath Sounds: Clear Respiratory Status: No respiratory distress - Skin Skin Color: Normal
--- NOTE | 2017-05-03 01:59 | RADIOLOGY REPORT (SQ) ---
EXAM DESCRIPTION: U/S NON OB PEL TV W/DOPPLER COMPLETED DATE/TIME: 05/03/2017 1:43 am REASON FOR STUDY: right side pain COMPARISON: CT abdomen and pelvis 05/02/2017. Pelvic ultrasound 07/01/2016. TECHNIQUE: Grayscale images acquired of the pelvis via transvaginal approach and recorded on PACS. LIMITATIONS: Overlying bowel gas. FINDINGS: UTERUS: The uterus measures 6.3 x 3.3 x 5.2 cm. No focal myometrial mass was seen. ENDOMETRIAL STRIPE: Measures 2.8 mm in double wall thickness. CERVIX: Measures 2.8 cm in length. RIGHT OVARY: The right ovary was not visualized. LEFT OVARY: The left ovary was not visualized. FREE FLUID: None noted. IMPRESSION: Nonvisualized ovaries. Otherwise, no acute findings. TECHNICAL DOCUMENTATION: JOB ID: [id number] 2010 [employer]- All Rights Reserved
[2017-05-03] MEDS ORDERED: NORMAL SALINE 1000 ML 1,000 ML IV PRN ×2 (02:09→04:04)
[2017-05-03] MEDS: NORMAL SALINE 1000 ML 1,000 ML IV PRN (02:22)
[2017-05-03 02:33] LABS: CHLAM PCR NOT DETECTED (NOT DETECT)
[2017-05-03] MEDS ORDERED: HYDROMORPHONE HCL INJ/PF 2 MG/ML AMPULE IV ONE (03:26)
[2017-05-03] MEDS: HYDROMORPHONE HCL INJ/PF 2 MG/ML AMPULE INJ PRN ×4 (06:05→22:40)
[2017-05-03] MEDS: ONDANSETRON HCL INJ/PF 4 MG/2 ML SDV IV PRN ×2 (06:05→20:36)
--- NOTE | 2017-05-03 06:13 | HISTORY AND PHYSICAL E ---
History and Physical NAME: ANA CRISTINA VARGHESE : 1990 AGE: 26Y ADMITTED: 05/03/2017 ROOM: 209 CHIEF COMPLAINT: Abdominal pain. HISTORY OF PRESENT ILLNESS: This is a 26-year-old female complaining of right flank pain initially 2 weeks ago associated with nausea and vomiting. The pain gradually moved to the right upper quadrant and to the right lower quadrant. She claims she ate pizza about 2 weeks and had nausea and vomiting. She claims she tends to eat pizza or spaghetti and she gets nauseated and vomits. She was seen at the [facility] and was worked up for PID and was told it was negative and sent home. She did have a history of PID in January of this year and was treated. Last night, developed fever and she called 911 and was brought to the emergency room, and noted to have SIRS and given at least 3 liters of saline. She was noted to have a white count of 17.7. She had a transvaginal ultrasound, which was unremarkable, though both ovaries were not identified. She had a CT scan of the abdomen and pelvis, which did not show the appendix and was noted to be unremarkable. She was then admitted with the diagnosis of acute appendicitis. PAST HISTORY: 1. History of right ankle tendon surgery. 2. History of hypertension, but on no medication. 3. Pulmonary: Reports history of asthma. 4. Renal/: History of pelvic inflammatory disease. 5. Musculoskeletal: Denies history of arthritis. 6. Psychiatric: Reports history of bipolar disease, depression, posttraumatic stress disorder. PAST SURGICAL HISTORY: Patrick tooth removal 2016. ALLERGIES: MORPHINE, DIPHENHYDRAMINE HCL, IODINE, LATEX, AMOXICILLIN, PENICILLIN AND CODEINE. SOCIAL HISTORY: Denies any smoking, denies alcohol use and drug use. She takes control pills. REVIEW OF SYSTEMS: Constitutional: Past fever. HEENT: No symptoms reported. Cardiovascular: No symptoms reported. Respiratory: No symptoms reports. Gastrointestinal: As in HPI. Genitourinary: No symptoms reported. Musculoskeletal: No symptoms reported. Skin: No symptoms reported. Hematologic/lymphatic: No symptoms reported. Urological: No symptoms reported. All other systems reviewed and negative. PHYSICAL EXAMINATION: VITALS: Respiratory 28 per minute and pulse oximetry of 98% on room air. The patient is tachycardiac and febrile at 98.6, respirations down to 17 per minute, blood pressure 117/82 and pulse oximetry 100%. GENERAL: The patient appears alert and anxious. HEENT: Normocephalic, atraumatic. Eyes normal. Pupils PERRL. RESPIRATORY: No distress. Lungs clear bilaterally. CARDIOVASCULAR: Tachycardiac. Heart sounds normal. No murmur. ABDOMEN: Soft, tender in the right upper quadrant just below the rib cage. Mild tenderness in the right paraumbilical area. No tenderness in the pelvic area. The patient had a pelvic exam in the emergency room and was found to have unremarkable findings. BACK: Normal, nontender. EXTREMITIES: No tenderness, no edema. NEUROLOGIC: The patient is alert and oriented x4. PSYCHIATRIC: Normal affect and normal mood. SKIN: Warm, dry and normal color. LABORATORY DATA: White count 17.7, hematocrit 35. Electrolytes are normal. BUN and creatinine are normal. The patient was given at least 3 liters of saline in ER for concern for sepsis and possibly having acute appendicitis. IMPRESSION: 1. ABDOMINAL PAIN, POSSIBLY DUE TO ACUTE GALLBLADDER DISEASE. 2. DOUBT ACUTE APPENDICITIS SINCE HER PAIN IS MORE RIGHT UPPER QUADRANT RATHER RIGHT LOWER QUADRANT. 3. POSSIBLE SHOY-CTSY-ARUQCY SYNDROME. PLAN: 1. Continue with IV Primaxin. 2. Stat ultrasound of the gallbladder. If negative, may need to have HIDA scan. 3. May need TOWBOAT ENGINEER evaluation. 4. Continue with hydration. DICTATING PHYSICIAN: YASMANY RUBI M.D. [id number] PHY#: [id number] ID: [id number] JOB#: [id number] ACCT: [id number] cc: >
--- NOTE | 2017-05-03 06:22 | RADIOLOGY REPORT (SQ) ---
EXAM DESCRIPTION: U/S ABDOMEN COMPLETE W/O DOP COMPLETED DATE/TIME: 05/03/2017 5:57 am REASON FOR STUDY: RUQ abdominal pain COMPARISON: CT abdomen and pelvis 05/02/2017, abdominal ultrasound 03/22/2015. TECHNIQUE: Grayscale images acquired of the abdomen and recorded on PACS. Additional selected color Doppler and spectral images recorded. LIMITATIONS: Overlying bowel gas. FINDINGS: PANCREAS: Obscured by overlying bowel gas. LIVER: Measures 14.3 cm echotexture within normal limits. LIVER VASCULATURE: Normal directional flow of the main portal vein. GALLBLADDER: No stones. Normal wall thickness. No pericholecystic fluid. ULTRASOUND-DETECTED SAMANIEGO'S SIGN: Positive. INTRAHEPATIC DUCTS AND COMMON DUCT: No intrahepatic biliary ductal dilation. The common bile duct is dilated to 9.1 mm. INFERIOR VENA CAVA: Not well visualized. AORTA: No aneurysm in the visualized segments. RIGHT KIDNEY: Measures 10.7 cm. Normal echogenicity. No hydronephrosis. No calcifications. LEFT KIDNEY: Measures 11.4 cm. Normal echogenicity. No hydronephrosis. No calcifications. SPLEEN: Measures 11 cm. PERITONEAL AND PLEURAL SPACES: No ascites or effusions. IMPRESSION: No cholelithiasis. Positive sonographic Samaniego's sign, nonspecific. Mildly dilated com mon bile duct. TECHNICAL DOCUMENTATION: JOB ID: [id number] [employer]- All Rights Reserved
[2017-05-03 09:25] LABS: ABSOLUTE EOSINOPHILS # (AUTO) 0.1 10^3/uL (0.0-0.6); ABSOLUTE LYMPHOCYTES (AUTO) 2.4 10^3/uL (0.5-4.7); ABSOLUTE NEUT (AUTO) 11.6 10^3/uL (1.7-8.2); BASOPHILS % (AUTO) 0.2 % (0-2); EOSINOPHILS % (AUTO) 0.4 % (0-6); HEMATOCRIT 31.7 % (36.0-47.0); HEMOGLOBIN 11.2 g/dL (12.0-15.5); HGB HCT DIFFERENCE 1.9; LYMPHOCYTES % (AUTO) 15.9 % (13-45); MEAN CORPUSCULAR HEMOGLOBIN 29.8 pg (27.0-33.4); MEAN CORPUSCULAR HGB CONC 35.2 g/dL (32.0-36.0); MEAN CORPUSCULAR VOLUME 85 fl (80-97); MONOCYTES % (AUTO) 6.7 % (3-13); RED BLOOD COUNT 3.75 10^6/uL (3.72-5.28); RED CELL DISTRIBUTION WIDTH 13.1 % (11.5-14.0); SEGMENTED NEUTROPHILS % (AUTO) 76.8 % (42-78); WHITE BLOOD COUNT 15.1 10^3/uL (4.0-10.5)
--- NOTE | 2017-05-03 10:11 | PDOC CONSULTATION ---
Consultation Consult Date: 05/03/17 Consult reason:: abd pain History of Present Illness Admission Date/PCP: 05/03/17 03:20 History of Present Illness: ANA CRISTINA VARGHESE is a 26 year old female c/o pelvic pain for a few days. Has nexplanon in place for contraception and uses estradiol to control bleeding on this. Pain is right sided. Past Medical History LMP: N/A on nexplanon Cardiac Medical History: Reports: Hypertension - Not on medication Denies: Coronary Artery Disease, Myocardial Infarction Pulmonary Medical History: Reports: Asthma Denies: Bronchitis, Chronic Obstructive Pulmonary Disease (COPD), Pneumonia Neurological Medical History: Denies: Seizures Musculoskeltal Medical History: Denies: Arthritis Psychiatric Medical History: Reports: Bipolar Disorder, Depression, Post Traumatic Stress Disorder Social History Smoking Status: Never Smoker Frequency of Alcohol Use: Rare Hx Recreational Drug Use: No Hx Prescription Drug Abuse: No Family History Family History: None, Reviewed & Not Pertinent Parental Family History Reviewed: No Children Family History Reviewed: No Sibling(s) Family History Reviewed.: No - noncontribuotry Medication/Allergy Home Medications: Cyclobenzaprine HCl [Flexeril 10 mg Tablet] 10 mg PO TID 11/03/16 Meloxicam 15 mg PO DAILY 11/03/16 Oxycodone HCl/Acetaminophen [Percocet 5-325 mg Tablet] 1 - 2 tab PO ASDIR PRN # 60 tablet 11/13/16 Ketorolac Tromethamine [Toradol 10 mg Tablet] 10 mg PO Q8HP PRN #10 tablet 01/28 Metoclopramide HCl [Reglan 10 mg Tablet] 1 tab PO ASDIR PRN #25 tablet 01/28/17 Hydrocodone/Acetaminophen [Berlin 5-325 mg Tablet] 1 tab PO Q4 PRN #12 tablet Prednisone [Deltasone 20 mg Tablet] 3 tab PO DAILY 5 Days tablet 02/10/17 Permethrin [Lice Treatment] 1 applic TP ASDIR #118 ml 03/05/17 Allergies/Adverse Reactions: morphine [Morphine] Allergy (Severe, Verified 03/05/17 19:16) Difficulty breathing/itch diphenhydramine HCl [From Benadryl] Allergy (Intermediate, Verified 03/05/17 19: 16) RASH iodine [Iodine] Allergy (Intermediate, Verified 03/05/17 19:16) RASH latex [Latex] Allergy (Intermediate, Verified 03/05/17 19:16) RASH amoxicillin [Amoxicillin] Allergy (Unknown, Verified 03/05/17 19:16) Hives Penicillins Allergy (Unknown, Verified 03/05/17 19:16) Hives codeine Allergy (Verified 03/05/17 19:16) Hives Review of Systems Genitourinary: ABSENT: as per HPI, difficulty urinating - denies diarhea, constipation, abnl vag discharge, dysuria, hematuria, nocturia, other Physical Exam - Physical Exam Vital Signs: Temp Pulse Resp BP Pulse Ox 98.8 F 113 H 16 149/85 H 95 05/03/17 07:40 05/03/17 07:40 05/03/17 07:40 05/03/17 07:40 05/03/17 07:40 GI/Abdominal exam: PRESENT: soft - tender on right side of abdomen - Gynecological Exam Vagina: normal Uterus: normal Adhexa: normal - no cmt, nontender on bimanual Result Laboratory Results: 05/03/17 08:52 05/03/17 08:52 WBC 15.1 H RBC 3.75 Hgb 11.2 L Hct 31.7 L MCV 85 MCH 29.8 MCHC 35.2 RDW 13.1 Plt Count 307 Seg Neutrophils % 76.8 Lymphocytes % 15.9 Monocytes % 6.7 Eosinophils % 0.4 Basophils % 0.2 Absolute Neutrophils 11.6 H Absolute Lymphocytes 2.4 Absolute Monocytes 1.0 Absolute Eosinophils 0.1 Absolute Basophils 0.0 Impressions: Abdomen/Pelvis CT 05/02/17 22:36 IMPRESSION: NO SIGNIFICANT OR ACUTE FINDING IN THE ABDOMEN OR PELVIS ON CT SCAN WITH IV CONTRAST. Transvaginal US 05/03/17 01:01 IMPRESSION: Nonvisualized ovaries. Otherwise, no acute findings. Abdomen Ultrasound 05/03/17 05:24 IMPRESSION: No cholelithiasis. Positive sonographic Samaniego's sign, nonspecific. Mildly dilated common bile duct. Assessment & Plan - Plan Summary Plan Summary: at this point, do not think PID or investment advisor path given imaging findings. Case d/w Dr. Contreras of gen surg..if goes to OR for possible appendicitis/abd pain with leukocytosis, would be happy to come in.
--- NOTE | 2017-05-03 10:44 | EKG REPORT ---
SEVERITY:- ABNORMAL ECG - SINUS TACHYCARDIA CONSIDER LEFT VENTRICULAR HYPERTROPHY NONSPECIFIC T ABNORMALITIES, INFERIOR LEADS : Confirmed by: Isabell Rojas 03-May-2017 10:43:26
--- NOTE | 2017-05-03 13:50 | RADIOLOGY REPORT (SQ) ---
EXAM DESCRIPTION: NM HIDA SCAN WITH CCK COMPLETED DATE/TIME: 05/03/2017 1:41 pm REASON FOR STUDY: Abdominal Pain COMPARISON: None. RADIONUCLIDE AND DOSE: DOSAGE RADIONUCLIDE: 5.2 millicuries Tc99m Mebrofenin. DOSAGE CCK: 1.6 micrograms. DOSAGE MORPHINE: Not required. The route of agent administration: Intravenous TECHNIQUE: Serial imaging right upper quadrant up to 60 minutes following injection of radionuclide. CCK injected after gallbladder visualized. LIMITATIONS: None. FINDINGS: LIVER: Normal visualization without areas of photopenia. INTRA AND EXTRAHEPATIC BILE DUCTS: Normal accumulation of activity. GALLBLADDER: Normal visualization. Calculated Ejection Fraction of 11%. Below the normal value of 35 % or greater. PHYSICAL RESPONSE: Patients presenting complaint was reproduced. OTHER: No other significant finding. IMPRESSION: LOW GALLBLADDER EJECTION FRACTION. EVIDENCE FOR BILIARY DYSKINESIS. NO CYSTIC OR COMMO N DUCT OBSTRUCTION. TECHNICAL DOCUMENTATION: JOB ID: [id number] [employer]- All Rights Reserved
--- NOTE | 2017-05-03 23:07 | RADIOLOGY REPORT (SQ) ---
EXAM DESCRIPTION: CT ABD/PELVIS ORAL ONLY COMPLETED DATE/TIME: 05/03/2017 10:22 pm REASON FOR STUDY: Severe RUQ abdominal pains,Had CT w/ IV unremarkab COMPARISON: Hepatobiliary scan 05/03/2017 CT abdomen pelvis 05/28/2016 Pelvic ultrasound 05/03/2017 TECHNIQUE: CT scan of the abdomen and pelvis performed without intravenous Patient drank oral contrast Contrast. Images reviewed with lung, soft tissue, and bone windows. Reconstructed coronal and sagitta l MPR images reviewed. All images stored on PACS. All CT scanners at this facility use dose modulation, iterative reconstruction, and/or weight based d osing when appropriate to reduce radiation dose to as low as reasonably achievable (ALARA). [facility]: Dose Right [facility]: CareDose [facility]: Dose Right [facility]: Teradose 4D [facility]: Smart Technologies RADIATION DOSE: Up-to-date CT equipment and radiation dose reduction techniques were employed. CTDIv ol: 12.1 mGy. DLP: 667 mGy-cm.mGy. LIMITATIONS: None. FINDINGS: LOWER CHEST: No significant findings. No nodules or infiltrates. NON-CONTRASTED LIVER, SPLEEN, ADRENALS: Evaluation limited by lack of IV contrast. No identified sign ificant masses. PANCREAS: No masses. No peripancreatic inflammatory changes. GALLBLADDER: Opacified by biliary excretion of IV contrast. RIGHT KIDNEY AND URETER: No suspicious masses. Assessment limited by lack of IV contrast. No signif icant calcifications. No hydronephrosis or hydroureter. LEFT KIDNEY AND URETER: No suspicious masses. Assessment limited by lack of IV contrast. No signifi cant calcifications. No hydronephrosis or hydroureter. AORTA AND RETROPERITONEUM: No aneurysm. No retroperitoneal masses or adenopathy. BOWEL AND PERITONEAL CAVITY: No obvious masses or inflammatory changes. No free fluid. APPENDIX: Not well seen. No inflammation in the right lower quadrant. PELVIS, BLADDER, AND ABDOMINAL WALL:No abnormal masses. No free fluid. Bladder normal. BONES: No significant findings. OTHER: No other significant finding. IMPRESSION: NO SIGNIFICANT OR ACUTE PROCESS IN THE ABDOMEN OR PELVIS. COMMENT: Quality ID # [id number]: Final reports with documentation of one or more dose reduction techniques (e.g., Automated exposure control, adjustment of the mA and/or kV according to patient size, use of iterative reconstruction technique) TECHNICAL DOCUMENTATION: JOB ID: [id number] [employer]- All Rights Reserved
[2017-05-04 06:32] LABS: ABSOLUTE EOSINOPHILS # (AUTO) 0.2 10^3/uL (0.0-0.6); ABSOLUTE LYMPHOCYTES (AUTO) 1.6 10^3/uL (0.5-4.7); ABSOLUTE MONOCYTES (AUTO) 0.8 10^3/uL (0.1-1.4); ABSOLUTE NEUT (AUTO) 8.6 10^3/uL (1.7-8.2); BASOPHILS % (AUTO) 0.2 % (0-2); EOSINOPHILS % (AUTO) 1.7 % (0-6); HEMATOCRIT 33.5 % (36.0-47.0); HEMOGLOBIN 11.7 g/dL (12.0-15.5); HGB HCT DIFFERENCE 1.6; LYMPHOCYTES % (AUTO) 14.6 % (13-45); MEAN CORPUSCULAR HEMOGLOBIN 29.6 pg (27.0-33.4); MEAN CORPUSCULAR HGB CONC 34.8 g/dL (32.0-36.0); MEAN CORPUSCULAR VOLUME 85 fl (80-97); MONOCYTES % (AUTO) 7.2 % (3-13); RED BLOOD COUNT 3.93 10^6/uL (3.72-5.28); SEGMENTED NEUTROPHILS % (AUTO) 76.3 % (42-78); WHITE BLOOD COUNT 11.3 10^3/uL (4.0-10.5)
[2017-05-04 06:46] LABS: ALANINE AMINOTRANSFERASE 42 U/L (9-52); ALBUMIN 3.4 g/dL (3.5-5.0); ALKALINE PHOSPHATASE 82 U/L (38-126); ASPARTATE AMINO TRANSFERASE 22 U/L (14-36); BILIRUBIN,DIRECT 0.7 mg/dL (0.0-0.4); BILIRUBIN,TOTAL 1.1 mg/dL (0.2-1.3); LIPASE 50.1 U/L (23-300); TOTAL PROTEIN 6.1 g/dL (6.3-8.2)
[2017-05-04] MEDS: HYDROMORPHONE HCL INJ/PF 2 MG/ML AMPULE INJ PRN ×3 (08:22→21:08)
--- NOTE | 2017-05-04 09:52 | PDOC PROGRESS REPORT ---
Subjective Progress Note for:: 05/04/17 Subjective:: Mrs Andino is a 26 year old female with persistent 7/10 RUQ abdominal pain, localized and nonradiating. Workup c/w biliary dyskinesia. Pending MRCP. Given persistent symptoms plan for OR in near future for cholecystectomy. May add bentyl s/p MRCP. Physical Exam Vital Signs: Temp Pulse Resp BP Pulse Ox 98.7 F 86 16 124/72 99 05/04/17 08:10 05/04/17 08:10 05/04/17 08:10 05/04/17 08:10 05/04/17 08:10 Intake & Output 05/03/17 05/04/17 05/05/17 06:59 06:59 06:59 Intake Total 2760 Balance 2760 General appearance: PRESENT: no acute distress, cooperative Head exam: PRESENT: atraumatic, normocephalic Eye exam: PRESENT: conjunctiva pink Mouth exam: PRESENT: moist, neck supple, tongue midline Respiratory exam: PRESENT: clear to auscultation harsha Cardiovascular exam: PRESENT: RRR GI/Abdominal exam: PRESENT: normal bowel sounds, soft, tenderness - RUQ Rectal exam: PRESENT: deferred Neurological exam: PRESENT: alert, altered, awake, CN II-XII grossly intact Results Laboratory Results: 05/04/17 06:00 05/04/17 05/04/17 06:00 06:00 WBC 11.3 H RBC 3.93 Hgb 11.7 L Hct 33.5 L MCV 85 MCH 29.6 MCHC 34.8 RDW 13.0 Plt Count 306 Seg Neutrophils % 76.3 Lymphocytes % 14.6 Monocytes % 7.2 Eosinophils % 1.7 Basophils % 0.2 Absolute Neutrophils 8.6 H Absolute Lymphocytes 1.6 Absolute Monocytes 0.8 Absolute Eosinophils 0.2 Absolute Basophils 0.0 Total Bilirubin 1.1 AST 22 ALT 42 Alkaline Phosphatase 82 Total Protein 6.1 L Albumin 3.4 L Lipase 50.1 Impressions: Abdomen/Pelvis CT 05/03/17 00:00 IMPRESSION: NO SIGNIFICANT OR ACUTE PROCESS IN THE ABDOMEN OR PELVIS. Hepatobiliary Scan Nuclear Medicine 05/03/17 00:00 IMPRESSION: LOW GALLBLADDER EJECTION FRACTION. EVIDENCE FOR BILIARY DYSKINESIS. NO CYSTIC OR COMMON DUCT OBSTRUCTION. Transvaginal US 05/03/17 01:01 IMPRESSION: Nonvisualized ovaries. Otherwise, no acute findings. Abdomen Ultrasound 05/03/17 05:24 IMPRESSION: No cholelithiasis. Positive sonographic Samaniego's sign, nonspecific. Mildly dilated common bile duct. Status: Imported from PACS Assessment & Plan - Diagnosis (1) Biliary dyskinesia Is this a current diagnosis for this admission?: Yes Plan: MRCP pending, likely OR for cholecystectomy in next 24 hours. Add bentyl after MRCP for pain control. - Time Time Spent with patient: 15-24 minutes
--- NOTE | 2017-05-04 11:47 | RADIOLOGY REPORT (SQ) ---
EXAM DESCRIPTION: MRI ABDOMEN WITHOUT COMPLETED DATE/TIME: 05/04/2017 11:09 am REASON FOR STUDY: Dilated CBD 9.1 on ultrasound COMPARISON: Studies on 05/03/2017 -CT abdomen and pelvis, hepatobiliary scan, abdominal ultrasound. TECHNIQUE: Multiplanar multisequence imaging performed without and with contrast including sagittal, axial and coronal T2, axial T1, axial gradient fat sat T1, axial, sagittal and coronal fat sat T1 po st contrast. Additional MRCP images also acquired. CONTRAST TYPE AND DOSE: Noncontrast study. RENAL FUNCTION: Not applicable. LIMITATIONS: None. FINDINGS: LIVER: Normal size. No masses. No dilated ducts. CBD normal. Common bile duct is not dil ated and measures 4-5 mm. No filling defects. SPLEEN: Normal size. No focal lesions. PANCREAS: No masses. No adjacent inflammation or peripancreatic fluid collections. Pancreatic duct no t dilated. GALLBLADDER: No masses. No stones. No gallbladder wall thickening or pericholecystic fluid. ADRENAL GLANDS: No significant masses or asymmetry. RIGHT KIDNEY AND URETER: No masses. No hydronephrosis. LEFT KIDNEY AND URETER: No masses. No hydronephrosis. AORTA AND VESSELS: No aneurysm. No dissection. Renal arteries, SMA, celiac without stenosis. RETROPERITONEUM: No retroperitoneal adenopathy, hemorrhage or masses. BOWEL: No visualized masses. No inflammation. No significant dilatation. ABDOMINAL WALL AND PERITONEUM: No hernias. No free fluid. BONES: No acute or significant findings. OTHER: No other significant finding. IMPRESSION: NORMAL MRI OF THE ABDOMEN WITHOUT CONTRAST. NO BILIARY DILATION OR DUCTAL FILLING DEFEC TS. TECHNICAL DOCUMENTATION: JOB ID: [id number] [employer]- All Rights Reserved
[2017-05-04] MEDS: DICYCLOMINE HCL 20 MG TABLET PO SCH ×3 (13:18→23:15)
[2017-05-04] MEDS: RINGERS SOLUTION,LACTATED 1,000 ML IV PRN (20:05)
[2017-05-05] MEDS: HYDROMORPHONE HCL INJ/PF 2 MG/ML AMPULE INJ PRN ×3 (02:18→17:20)
[2017-05-05] MEDS ORDERED: ACETAMINOPHEN 325 MG TABLET ONE (04:14)
[2017-05-05] MEDS ORDERED: ACETAMINOPHEN 325 MG TABLET PO PRN (04:17)
[2017-05-05] MEDS: DICYCLOMINE HCL 20 MG TABLET PO SCH ×4 (06:10→23:50)
[2017-05-05] MEDS ORDERED: LIDOCAINE 2% INJ-PF (20 MG/ML) 10 ML AMPUL ONE (07:39)
[2017-05-05] MEDS ORDERED: DEXAMETHASONE SOD PHOSPHATE INJ 4 MG/1 ML VIAL ONE (07:39)
[2017-05-05] MEDS ORDERED: SUCCINYLCHOLINE CHLORIDE INJ 200 MG/10 ML VIAL ONE (07:39)
[2017-05-05] MEDS ORDERED: NEOSTIGMINE METHYLSULFATE 10 MG/10 ML VIAL ONE (07:39)
[2017-05-05] MEDS ORDERED: ROCURONIUM BROMIDE INJ 50 MG/5 ML VIAL IV ONE (07:39)
[2017-05-05] MEDS ORDERED: GLYCOPYRROLATE INJ 0.4 MG/2 ML VIAL ONE (07:39)
[2017-05-05] MEDS ORDERED: ONDANSETRON HCL INJ/PF 4 MG/2 ML SDV ONE (07:39)
[2017-05-05] MEDS ORDERED: BUPIVACAINE HCL 0.25 % INJ/PF (2.5 MG/1 ML) 30 ML VIAL ONE (08:14)
[2017-05-05] MEDS ORDERED: LIDOCAINE 1% INJ-PF (10 MG/ML) 30 ML SDV ONE (08:14)
[2017-05-05] MEDS ORDERED: LIDOCAINE 1%/EPINEPHRINE INJ 20 ML VIAL ONE (08:15)
[2017-05-05] MEDS: RINGERS SOLUTION,LACTATED 1,000 ML IV PRN (09:56)
--- NOTE | 2017-05-05 12:35 | PDOC PROGRESS REPORT ---
Subjective Progress Note for:: 05/05/17 Subjective:: OR today for cholecystectomy for biliary dyskinesia improved symptoms overnight of diarrhea Physical Exam Vital Signs: Temp Pulse Resp BP Pulse Ox 98.8 F 74 20 115/78 100 05/05/17 11:59 05/05/17 11:59 05/05/17 11:59 05/05/17 11:17 05/05/17 11:59 Intake & Output 05/04/17 05/05/17 05/06/17 06:59 06:59 06:59 Intake Total 2760 750 Output Total 100 Balance 2760 650 Weight 79.2 kg General appearance: PRESENT: no acute distress Head exam: PRESENT: atraumatic, normocephalic Mouth exam: PRESENT: moist, neck supple Neck exam: ABSENT: lymphadenopathy, tenderness, thyromegaly, tracheal deviation Respiratory exam: PRESENT: clear to auscultation harsha Cardiovascular exam: PRESENT: RRR Pulses: PRESENT: normal dorsalis pedis pul Vascular exam: PRESENT: normal capillary refill GI/Abdominal exam: PRESENT: soft, tenderness - RUQ pain Neurological exam: PRESENT: alert, awake, oriented to person, oriented to place , oriented to time, oriented to situation, CN II-XII grossly intact. ABSENT: motor sensory deficit Results Laboratory Results: 05/04/17 06:00 Impressions: Abdomen/Pelvis CT 05/03/17 00:00 IMPRESSION: NO SIGNIFICANT OR ACUTE PROCESS IN THE ABDOMEN OR PELVIS. Hepatobiliary Scan Nuclear Medicine 05/03/17 00:00 IMPRESSION: LOW GALLBLADDER EJECTION FRACTION. EVIDENCE FOR BILIARY DYSKINESIS. NO CYSTIC OR COMMON DUCT OBSTRUCTION. Transvaginal US 05/03/17 01:01 IMPRESSION: Nonvisualized ovaries. Otherwise, no acute findings. Abdomen Ultrasound 05/03/17 05:24 IMPRESSION: No cholelithiasis. Positive sonographic Samaniego's sign, nonspecific. Mildly dilated common bile duct. Abdomen MRI 05/04/17 00:00 IMPRESSION: NORMAL MRI OF THE ABDOMEN WITHOUT CONTRAST. NO BILIARY DILATION OR DUCTAL FILLING DEFECTS. Status: Imported from PACS Assessment & Plan - Diagnosis (1) Biliary dyskinesia Is this a current diagnosis for this admission?: Yes Plan: OR for laparoscopic cholecystectomy Postoperatively will consider discharge home given recovery course - Time Time Spent with patient: Less than 15 minutes
[2017-05-05] MEDS ORDERED: FENTANYL CITRATE INJ/PF 250 MCG/5 ML AMPULE ONE (14:17)
[2017-05-05] MEDS ORDERED: MIDAZOLAM 2 MG/2 ML INJ ONE (14:18)
[2017-05-05] MEDS ORDERED: ACETAMINOPHEN 0 ML IV ONE (14:18)
[2017-05-05] MEDS ORDERED: PROPOFOL INJ 200 MG/20 ML VIAL IV ONE (14:18)
[2017-05-05] MEDS ORDERED: HYDROMORPHONE HCL INJ/PF 2 MG/ML AMPULE ONE ×2 (14:18→18:57)
[2017-05-05] MEDS ORDERED: D5W RTU IV ONE (14:33)
[2017-05-05] MEDS ORDERED: CIPROFLOXACIN IV ONE (14:33)
[2017-05-05] MEDS ORDERED: CEFOXITIN 1 GM/D5W RTU 1 GM/50 ML RTUPB IV ONE ×2 (14:44→23:00)
[2017-05-05] MEDS ORDERED: FENTANYL CITRATE INJ/PF 100 MCG/2 ML AMPUL IV PRN ×3 (15:10)
[2017-05-05] MEDS ORDERED: MEPERIDINE HCL/PF INJ 25 MG/1 ML DISP.SYRIN IV PRN (15:10)
[2017-05-05] MEDS ORDERED: PROMETHAZINE HCL INJ 25 MG/1 ML VIAL IV PRN (15:10)
--- NOTE | 2017-05-05 16:02 | Operative Report ---
Operative Report DATE OF SURGERY: 05/05/17 Operative Report: Clinical indications: Mrs. Andino is a 26-year-old female that presented to the ER with acute onset of abdominal pain. In the ER workup was suspicious initially for acute appendicitis given her clinical history subsequent to this was found that she had nausea vomiting associated with her abdominal pain as well a HIDA scan that was suggestive of biliary dyskinesia. Consent was obtained from the patient explained competitions risks and benefits for the procedure including but limited to bleeding infection need for operation biliary injury to which he accepted. Procedure in detail: Patient brought to the operative suite prior to second induction SCDs were placed and functional after adequate anesthetic induction successful intubation she was sterilely prepped and draped in usual manner. Access to her abdomen was done Via Gaytan technique. Prior to any incision local was instilled. Local used was 1% lidocaine mixed 50-50 with quarter percent Marcaine plain of which 5 mL's were used. Infra umbilical curvilinear incision was made blunt dissection then allowed visualization of the fashion of the abdominal wall this is retracted anteriorly transfixed with stitch midline incision was made both by visualization and palpation entering to the abdomen was confirmed some trocar was inserted pneumoperitoneum of 15 mmHg was established. 10 mm 0 endoscope was inserted in the abdomen verifying no iatrogenic injury patient was placed in steep reverse Trendelenburg and airplane left. Subsequent trochars were placed as follows to right upper quadrant 5 mm trochars under direct visualization and the subxiphoid trocar site 10 mm again under direct visualization. Noting no bleeding his mentation was placed within the abdomen. Gallbladder was retracted anterior and lateral to optimize visualization. Dissection then began lateral to medial anterior to posterior deltoids critical view of both the cystic duct and artery. Having obtained these these were sequentially endoclipped and subsequently ligated leaving 3 clips on the internalized truncated structures. Continued dissection of the gallbladder from its fossa was done with electrocautery pausing at the apex prior to amputation reinspection of the gallbladder fossa notes hemostasis controlled using electrocautery. With amputation of the gallbladder from its apical attachments it was removed from the subxiphoid trocar site using an Endo Catch back. Trocar was reinserted patient was flattened out cursory inspection of the abdomen notes normal-appearing intra-abdominal contents normal-appearing liver stomach abdominal wall pelvic structures and bowel. At this point trochars removed under direct visualization noting no bleeding pneumoperitoneum was insufflated and camera was removed in its entirety. This time trocar sites were then closed in sequence using a 3-0 Vicryl for dermal reapproximation and 4 -0 chromic in a running subcuticular interrupted manner. Turner trocar site was then addressed the fascia was reapproximated using 0 Vicryl stitch in a [id number] manner and the dermis was re-approximated using 3-0 Vicryl skin was approximated using 4-0 chromic in running subcu manner. Sites were then dressed with Mastisol and Steri-Strips. Superficially these were then dressed with 2 x 2's and OpSite. Patient awoke from anesthesia and transferred back to recovery in stable condition after extubation. PREOPERATIVE DIAGNOSIS: Biliary dyskinesia POSTOPERATIVE DIAGNOSIS: Biliary dyskinesia OPERATION: Laparoscopic cholecystectomy SURGEON: MARGARITO PIEDRA ANESTHESIA: GA TISSUE REMOVED OR ALTERED: Gall bladder COMPLICATIONS: none ESTIMATED BLOOD LOSS: 5mls INTRAOPERATIVE FINDINGS: Dilated gallbladder
[2017-05-05] MEDS ORDERED: PROMETHAZINE HCL INJ 25 MG/1 ML VIAL ONE (16:03)
[2017-05-05] MEDS ORDERED: FENTANYL CITRATE INJ/PF 100 MCG/2 ML AMPUL ONE (16:09)
[2017-05-05] MEDS: ONDANSETRON HCL INJ/PF 4 MG/2 ML SDV IV PRN (18:40)
[2017-05-05] MEDS: KETOROLAC TROMETHAMINE INJ/PF 30 MG/1 ML SDV IV PRN (20:18)
[2017-05-05] MEDS: HYDROMORPHONE HCL INJ/PF 2 MG/ML AMPULE IV PRN (21:16)
[2017-05-06] MEDS: HYDROMORPHONE HCL INJ/PF 2 MG/ML AMPULE IV PRN ×4 (00:05→09:26)
[2017-05-06] MEDS: KETOROLAC TROMETHAMINE INJ/PF 30 MG/1 ML SDV IV PRN ×3 (02:06→14:03)
[2017-05-06] MEDS: DICYCLOMINE HCL 20 MG TABLET PO SCH ×2 (06:01→12:13)
[2017-05-06] MEDS: ONDANSETRON HCL INJ/PF 4 MG/2 ML SDV IV PRN (06:29)
--- NOTE | 2017-05-06 13:43 | PDOC PROGRESS REPORT ---
Subjective Progress Note for:: 05/06/17 Subjective:: Doing well today Tolerating diet Pain surgical sites no longer deep focal RUQ pain Physical Exam Vital Signs: Temp Pulse Resp BP Pulse Ox 98.6 F 88 18 126/77 H 98 05/06/17 12:01 05/06/17 12:01 05/06/17 12:01 05/06/17 12:01 05/06/17 12:01 Intake & Output 05/05/17 05/06/17 05/07/17 06:59 06:59 06:59 Intake Total 750 1820 Output Total 100 5 Balance 650 1815 Weight 79.2 kg General appearance: PRESENT: no acute distress Mouth exam: PRESENT: moist, neck supple GI/Abdominal exam: PRESENT: guarding - focal, tenderness - appropriate, other - Incisions C/D/I, dressings dry. ABSENT: distended, firm Extremities exam: PRESENT: full ROM. ABSENT: calf tenderness, clubbing, pedal edema Neurological exam: PRESENT: alert, awake, oriented to person, oriented to place , oriented to time, oriented to situation, CN II-XII grossly intact. ABSENT: motor sensory deficit Results Laboratory Results: 05/04/17 06:00 Impressions: Abdomen/Pelvis CT 05/03/17 00:00 IMPRESSION: NO SIGNIFICANT OR ACUTE PROCESS IN THE ABDOMEN OR PELVIS. Hepatobiliary Scan Nuclear Medicine 05/03/17 00:00 IMPRESSION: LOW GALLBLADDER EJECTION FRACTION. EVIDENCE FOR BILIARY DYSKINESIS. NO CYSTIC OR COMMON DUCT OBSTRUCTION. Transvaginal US 05/03/17 01:01 IMPRESSION: Nonvisualized ovaries. Otherwise, no acute findings. Abdomen Ultrasound 05/03/17 05:24 IMPRESSION: No cholelithiasis. Positive sonographic Samaniego's sign, nonspecific. Mildly dilated common bile duct. Abdomen MRI 05/04/17 00:00 IMPRESSION: NORMAL MRI OF THE ABDOMEN WITHOUT CONTRAST. NO BILIARY DILATION OR DUCTAL FILLING DEFECTS. Assessment & Plan - Diagnosis (1) Biliary dyskinesia Is this a current diagnosis for this admission?: Yes Plan: With tolerance of diet and pain controlled home today with follow up in 7-10 days with [facility] - Time Time Spent with patient: Less than 15 minutes
--- NOTE | 2017-05-06 13:53 | PDOC DISCHARGE SUMMARY ---
Discharge Summary (SDC) - Discharge Final Diagnosis: Biliary dyskinesia Date of Surgery: 05/05/17 Discharge Date: 05/06/17 Condition: Good Treatment or Instructions: Please nothing heavier than 10 lbs lifted Present to the ER or clinic with any fever, chest pain, shortness of breath, nausea/vomiting or diarrhea Follow up with surgery in clinic in 7-10 days Call with any questions Discharge Diet: As Tolerated Discharge Activity: No Lifting Over 10 Pounds Home Care Assistance: None Needed Report the Following to Your Physician Immediately: Shortness of Breath, Nausea , Vomiting, Increase in Pain, Fever over 101 Degrees, Unusual Bleeding, Warmth, Increased Soreness, Seizure
--- NOTE | 2017-05-06 13:58 | PDOC DISCHARGE SUMMARY ---
General - Admit/Disc Date/PCP Admission Date/Primary Care Provider: 05/03/17 03:20 Discharge Date: 05/06/17 - Discharge Diagnosis (1) Biliary dyskinesia Is this a current diagnosis for this admission?: Yes - Additional Information Resuscitation Status: Full Code Discharge Diet: As Tolerated Discharge Activity: No Lifting Over 10 Pounds Home Medications: Control 1 tab PO DAILY 05/03/17 History of Present Illness History of Present Illness: ANA CRITSINA VARGHESE is a 26 year old female presented to [facility] with acute onset of abdominal pain on 05/03/17. Clinically concerned for acute appendicitis given ER workup but subsequent workup revealed HIDA with Biliary dyskinesia. Patient was consented and underwent cholecystectomy on 05/05/17. Doing well now. Tolerating a diet and pain controlled. Hospital Course Hospital Course: ANA CRISTINA VARGHESE is a 26 year old female presented to [facility] with acute onset of abdominal pain on 05/03/17. Clinically concerned for acute appendicitis given ER workup but subsequent workup revealed HIDA with Biliary dyskinesia. Patient was consented and underwent cholecystectomy on 05/05/17. Doing well now. Tolerating a diet and pain controlled. Physical Exam Vital Signs: Temp Pulse Resp BP Pulse Ox 98.6 F 88 18 126/77 H 98 05/06/17 12:01 05/06/17 12:01 05/06/17 12:01 05/06/17 12:01 05/06/17 12:01 Intake & Output 05/05/17 05/06/17 05/07/17 06:59 06:59 06:59 Intake Total 750 1820 Output Total 100 5 Balance 650 1815 Weight 79.2 kg General appearance: PRESENT: no acute distress Neck exam: ABSENT: lymphadenopathy, tenderness, thyromegaly, tracheal deviation GI/Abdominal exam: PRESENT: soft, tenderness - appropriate Extremities exam: PRESENT: full ROM. ABSENT: calf tenderness, clubbing, pedal edema Neurological exam: PRESENT: alert, awake, oriented to person, oriented to place , oriented to time, oriented to situation, CN II-XII grossly intact. ABSENT: motor sensory deficit Results Laboratory Results: 05/04/17 06:00 Impressions: Abdomen/Pelvis CT 05/03/17 00:00 IMPRESSION: NO SIGNIFICANT OR ACUTE PROCESS IN THE ABDOMEN OR PELVIS. Hepatobiliary Scan Nuclear Medicine 05/03/17 00:00 IMPRESSION: LOW GALLBLADDER EJECTION FRACTION. EVIDENCE FOR BILIARY DYSKINESIS. NO CYSTIC OR COMMON DUCT OBSTRUCTION. Transvaginal US 05/03/17 01:01 IMPRESSION: Nonvisualized ovaries. Otherwise, no acute findings. Abdomen Ultrasound 05/03/17 05:24 IMPRESSION: No cholelithiasis. Positive sonographic Samaniego's sign, nonspecific. Mildly dilated common bile duct. Abdomen MRI 05/04/17 00:00 IMPRESSION: NORMAL MRI OF THE ABDOMEN WITHOUT CONTRAST. NO BILIARY DILATION OR DUCTAL FILLING DEFECTS. Qualifiers PATEINT BEING DISCHARGED WITH ANY OF THE FOLLOWING DIAGNOSIS?: No Plan Discharge Plan: Call with any questions Present to the ER with any fever, chest pain, shortness of breath, headache, dizziness, nausea, vomiting or diarrhea Nothing heavier than 10 lbs lifted Alternate narcotic with antiinflammatory for pain control Take stool softener while on narcotic
[2017-05-06 14:31] VITALS: BP 127/76
== END 2017-05-06 15:09 | disposition home or self-care (01) | DRG 419 ==
LOC: ER 22:03 → EEVIPCON 05-03 03:20 → EH 05-03 03:20 → 2N 05-03 04:55
PROVIDERS: ATTEND Surgery
PROC: 0FT44ZZ Resection of Gallbladder, Percutaneous Endoscopic Approach (ICD-10-PCS; principal; 2017-05-05 14:30)
DX: K82.8 Other specified diseases of gallbladder (principal); I10 Essential (primary) hypertension; J45.909 Unspecified asthma, uncomplicated; F31.9 Bipolar disorder, unspecified; F43.10 Post-traumatic stress disorder, unspecified; Z79.899 Other long term (current) drug therapy; Z88.5 Allergy status to narcotic agent; Z91.040 Latex allergy status; Z88.0 Allergy status to penicillin
CPT/HCPCS: 36415; 74176; 74177; 74181; 76700; 76830; 78227; 790; 80053; 80076; 81001; 82803; 83605; 83690; 84703; 85025; 85610; 87040; 87086; 87210; 87491; 87591; 88304; 93005; 93010; 93976; 96361; 96365; 96375; 96376; 99291; A9537; J0131; J0330; J0694; J0743; J0744; J1100; J1170; J1885; J2250; J2405; J2550; J2704; J2805; J3010; J3490; J7030; J7120; Q9969

== ENCOUNTER 2017-05-09 13:47 | Emergency (ER) | payer OTHER ==
--- NOTE | 2017-05-09 14:35 | ER Document Report ---
ED Medical Screen (RME) - General Chief Complaint: Post Surgical Pain Stated Complaint: POST OP PROBLEMS Time Seen by Provider: 05/09/17 14:32 Mode of Arrival: Ambulatory Information source: Patient Notes: 26-year-old female who had recent surgery for her biliary dyskinesia presents with complaints of abdominal pain I have greeted and performed a rapid initial assessment of this patient. A comprehensive ED assessment and evaluation of the patient, analysis of test results and completion of the medical decision making process will be conducted by additional ED providers. PHYSICAL EXAMINATION: GENERAL: Well-appearing, well-nourished and in no acute distress. HEAD: Atraumatic, normocephalic. EYES: Pupils equal round extraocular movements intact, conjunctiva are normal. ENT: Nares patent NECK: Normal range of motion LUNGS: No respiratory distress Musculoskeletal: Normal range of motion NEUROLOGICAL: Normal speech, normal gait. PSYCH: Normal mood, normal affect. SKIN: Surgical incisions well-appearing TRAVEL OUTSIDE OF THE [place] IN LAST 30 DAYS: No - Related Data Allergies/Adverse Reactions: morphine [Morphine] Allergy (Severe, Verified 05/09/17 14:02) Difficulty breathing/itch diphenhydramine HCl [From Benadryl] Allergy (Intermediate, Verified 05/09/17 14: 02) RASH iodine [Iodine] Allergy (Intermediate, Verified 05/09/17 14:02) RASH latex [Latex] Allergy (Intermediate, Verified 05/09/17 14:02) RASH amoxicillin [Amoxicillin] Allergy (Unknown, Verified 05/09/17 14:02) Hives Penicillins Allergy (Unknown, Verified 05/09/17 14:02) Hives codeine Allergy (Verified 05/09/17 14:02) Hives Past Medical History - Social History Chew tobacco use (# tins/day): No Frequency of alcohol use: None Drug Abuse: None Family history: Hypertension, Other - copd - Past Medical History Cardiac Medical History: Reports: Hx Hypertension - Not on medication Denies: Hx Coronary Artery Disease, Hx Heart Attack Pulmonary Medical History: Reports: Hx Asthma Denies: Hx Bronchitis, Hx COPD, Hx Pneumonia Neurological Medical History: Denies: Hx Cerebrovascular Accident, Hx Seizures Renal/ Medical History: Reports: Hx Pelvic Inflammatory Disease. Denies: Hx Peritoneal Dialysis Musculoskeltal Medical History: Denies Hx Arthritis Psychiatric Medical History: Reports: Hx Bipolar Disorder, Hx Depression, Hx Post Traumatic Stress Disorder Past Surgical History: Reports: Hx Cholecystectomy, Hx Oral Surgery - wisdom tooth removal 07/2016, Hx Orthopedic Surgery - right ankle - Immunizations Immunizations up to date: Yes Hx Diphtheria, Pertussis, Tetanus Vaccination: Yes Physical Exam - Vital signs Vitals: Temp Pulse Resp BP Pulse Ox 98.5 F 84 20 150/99 H 100 05/09/17 14:02 05/09/17 14:02 05/09/17 14:02 05/09/17 14:02 05/09/17 14:02 Course - Vital Signs Vital signs: Temp Pulse Resp BP Pulse Ox 98.5 F 84 20 150/99 H 100 05/09/17 14:02 05/09/17 14:02 05/09/17 14:02 05/09/17 14:02 05/09/17 14:02
--- NOTE | 2017-05-09 15:05 | ER Document Report ---
ED GI/ - General Mode of Arrival: Ambulatory Information source: Patient TRAVEL OUTSIDE OF THE [place] IN LAST 30 DAYS: No - HPI Patient complains to provider of: Abdominal pain Onset: This morning Associated symptoms: Other - see narratie Recently seen / treated by doctor: Yes <MERLIN GARDNER - Last Filed: 05/09/17 15:36> <CONNIE PACE - Last Filed: 05/09/17 18:12> - General Chief Complaint: Post Surgical Pain Stated Complaint: POST OP PROBLEMS Time Seen by Provider: 05/09/17 14:32 Notes: Patient is a 26-year-old female who presents the emergency department today with complaints of abdominal pain. Patient had a cholecystectomy on 05/05/2017 and was discharged 3 days ago. Patient states she developed a "burning" sensation in her lower abdomen beginning this morning. Patient states that the x2 lower surgical sites are the sites that "burn". Patient states that it is the "inside" when describing the location of the burning. Patient states she has had a decreased appetite since being discharged. Patient states she has been mildly constipated with associated nausea but denies any vomiting. (MERLIN GARDNER) - Related Data Allergies/Adverse Reactions: morphine [Morphine] Allergy (Severe, Verified 05/09/17 14:02) Difficulty breathing/itch diphenhydramine HCl [From Benadryl] Allergy (Intermediate, Verified 05/09/17 14: 02) RASH iodine [Iodine] Allergy (Intermediate, Verified 05/09/17 14:02) RASH latex [Latex] Allergy (Intermediate, Verified 05/09/17 14:02) RASH amoxicillin [Amoxicillin] Allergy (Unknown, Verified 05/09/17 14:02) Hives Penicillins Allergy (Unknown, Verified 05/09/17 14:02) Hives codeine Allergy (Verified 05/09/17 14:02) Hives Past Medical History - General Information source: Patient - Social History Smoking Status: Never Smoker Cigarette use (# per day): No Chew tobacco use (# tins/day): No Frequency of alcohol use: None Drug Abuse: None Lives with: Family Family History: None, Reviewed & Not Pertinent - Past Medical History Cardiac Medical History: Reports: Hx Hypertension - Not on medication Pulmonary Medical History: Reports: Hx Asthma Renal/ Medical History: Reports: Hx Pelvic Inflammatory Disease Psychiatric Medical History: Reports: Hx Bipolar Disorder, Hx Depression, Hx Post Traumatic Stress Disorder Past Surgical History: Reports: Hx Cholecystectomy, Hx Oral Surgery - wisdom tooth removal 07/2016, Hx Orthopedic Surgery - right ankle - Immunizations Immunizations up to date: Yes Hx Diphtheria, Pertussis, Tetanus Vaccination: Yes <MERLIN GARDNER - Last Filed: 05/09/17 15:36> Review of Systems - Review of Systems Constitutional: No symptoms reported EENT: No symptoms reported Cardiovascular: No symptoms reported Respiratory: No symptoms reported Gastrointestinal: See HPI, Abdominal pain, Nausea, Constipation. denies: Vomiting Genitourinary: No symptoms reported Female Genitourinary: No symptoms reported Musculoskeletal: No symptoms reported Skin: No symptoms reported Hematologic/Lymphatic: No symptoms reported Neurological/Psychological: No symptoms reported -: Yes All other systems reviewed and negative <MERLIN GARDNER - Last Filed: 05/09/17 15:36> Physical Exam - Vital signs Interpretation: Normal - General General appearance: Appears well, Alert - HEENT Head: Normocephalic, Atraumatic Eyes: Normal Pupils: PERRL Mucous membranes: Dry - Respiratory Respiratory status: No respiratory distress Breath sounds: Normal Chest palpation: Normal - Cardiovascular Rhythm: Regular Heart sounds: Normal auscultation Murmur: No - Abdominal Inspection: Fresh incision - Multiple laparoscopic surgical wounds, all bandaged. Bandages removed on area where patient states the pain is the worst which is the inferior most surgical site. After bandage removal, there is no erythema or drainage. Distension: No distension Bowel sounds: Normal Tenderness: Tender - diffuse very mild tenderness consistent with recent abdominal surgery Organomegaly: No organomegaly - Back Back: Normal, Nontender - Extremities General upper extremity: Normal inspection, Normal color. No: Edema General lower extremity: Normal inspection, Normal color. No: Edema - Neurological Neuro grossly intact: Yes Cognition: Normal Orientation: AAOx4 [place] Coma Scale Eye Opening: Spontaneous Celi Coma Scale Verbal: Oriented Celi Coma Scale Motor: Obeys Commands [place] Coma Scale Total: 15 Speech: Normal - Psychological Associated symptoms: Normal affect, Normal mood - Skin Skin Temperature: Warm Skin Moisture: Dry Skin Color: Normal <MERLIN GARDNER - Last Filed: 05/09/17 15:36> - Vital signs Vitals: Temp Pulse Resp BP Pulse Ox 98.5 F 84 20 150/99 H 100 05/09/17 14:02 05/09/17 14:02 05/09/17 14:02 05/09/17 14:02 05/09/17 14:02 Course - Laboratory Result Diagrams: 05/09/17 14:40 05/09/17 14:40 <MERLIN GARDNER - Last Filed: 05/09/17 15:36> - Laboratory Result Diagrams: 05/09/17 14:40 05/09/17 14:40 - Diagnostic Test Radiology reviewed: Image reviewed, Reports reviewed - Acute abdominal series as read is unremarkable. There are some slightly gaseous distended loops of small bowel and other loops of bowel that appear to be in some spasm. All this is consistent with the bowel sounds I am hearing. <CONNIE PACE - Last Filed: 05/09/17 18:12> - Re-evaluation Re-evalutation: 05/09/17 18:07 The acute abdominal series shows some slightly gaseous distended loops of small bowel and some loops of bowel and some spasm which is consistent with the small bowel sounds I am hearing on exam. The clean-catch urine had 37 white cells on a quite dilute urine, there were 117 red cells but the patient is on her menses at this time. (CONNIE PACE) - Vital Signs Vital signs: Temp Pulse Resp BP Pulse Ox 98.5 F 84 20 150/99 H 100 05/09/17 14:02 05/09/17 14:02 05/09/17 14:02 05/09/17 14:02 05/09/17 14:02 - Laboratory Laboratory results interpreted by me: 05/09/17 05/09/17 05/09/17 14:40 14:40 17:10 WBC 10.6 H BUN 5 L AST 60 H ALT 159 H Alkaline Phosphatase 131 H Urine Ketones TRACE H Urine Blood LARGE H Ur Leukocyte Esterase MODERATE H Discharge <MERLIN GARDNER - Last Filed: 05/09/17 15:36> <CONNIE PACE - Last Filed: 05/09/17 18:12> - Discharge Clinical Impression: Abdominal pain Qualifiers: Abdominal location: unspecified location Qualified Code(s): R10.9 - Unspecified abdominal pain Urinary tract infection Qualifiers: Urinary tract infection type: site unspecified Hematuria presence: without hematuria Qualified Code(s): N39.0 - Urinary tract infection, site not specified Condition: Stable Disposition: HOME, SELF-CARE Additional Instructions: Urinary Tract Infection: Your evaluation indicates that you have a urinary tract infection. This is due to germs growing in the bladder. This is a common problem. This infection usually responds quickly to antibiotics. Your antibiotic should be taken exactly as prescribed. Drink plenty of fluids -- three to four quarts a day. Occasionally, a bladder anesthetic will be prescribed to help stop the feeling of urgency until the antibiotic has a chance to clear the infection. This may cause your urine to be dark orange. Certain urine infections require a culture. If the doctor obtained a culture, the results will be back in two days. You should call to see if a change in treatment is needed. A repeat urinalysis after you finish treatment is often recommended. The physician will let you know if further testing is required. Call the doctor if you develop fever, chills, flank pain, inability to urinate, or blood in the urine. Abdominal Pain: There are many causes of abdominal pain. Pain can mean a serious problem requiring surgery (such as appendicitis). It can also be an innocent problem that goes away on its own (such as a viral infection). Often, time must pass to determine the cause of pain. The physician does not feel that hospitalization is necessary, at present. Things may change within the next 24 hours. Call the doctor or come back for re- examination if any problems occur, such as: (1) Pain that becomes more severe, steady, or becomes concentrated in one specific area. Also, pain that is more severe with movement or coughing. (2) Vomiting that persists or becomes more frequent. (3) Blood in the vomitus, urine, or bowel movements. Blood in the stool may have a tarry or black appearance. (4) Shaking chills or fever greater than 100 degrees F. (5) The abdomen becomes more distended or swollen. (6) Bowel movements cease. (7) Failure to improve as expected. TAKE THE ANTIBIOTIC PRESCRIBED. DRINK COOL CLEAR LIQUIDS. REST. FOLLOW UP WITH [facility] IF NOT IMPROVING. RETURN TO THE EMERGENCY ROOM IF ANY NEW OR WORSENING SYMPTOMS. Prescriptions: Sulfamethoxazole/Trimethoprim [Bactrim Ds Tablet] 1 tab PO BID #10 tablet Referrals: [facility] [Provider Group] - Follow up as needed Scribe Attestation: 05/09/17 18:11 I personally performed the services described in the documentation, reviewed and edited the documentation which was dictated to the scribe in my presence, and it accurately records my words and actions. (CONNIE PACE) Scribe Documentation - Scribe Written by Scribe:: Clay Alexander, 05/09/2017 1545 acting as scribe for :: Leon <MERLIN GARDNER - Last Filed: 05/09/17 15:36>
[2017-05-09 15:10] LABS: ABSOLUTE EOSINOPHILS # (AUTO) 0.2 10^3/uL (0.0-0.6); ABSOLUTE LYMPHOCYTES (AUTO) 1.7 10^3/uL (0.5-4.7); ABSOLUTE MONOCYTES (AUTO) 0.7 10^3/uL (0.1-1.4); ABSOLUTE NEUT (AUTO) 7.9 10^3/uL (1.7-8.2); BASOPHILS % (AUTO) 0.4 % (0-2); EOSINOPHILS % (AUTO) 1.7 % (0-6); HEMATOCRIT 38.1 % (36.0-47.0); HEMOGLOBIN 13.5 g/dL (12.0-15.5); HGB HCT DIFFERENCE 2.4; LYMPHOCYTES % (AUTO) 16.5 % (13-45); MEAN CORPUSCULAR HEMOGLOBIN 30.3 pg (27.0-33.4); MEAN CORPUSCULAR HGB CONC 35.5 g/dL (32.0-36.0); MEAN CORPUSCULAR VOLUME 85 fl (80-97); RED BLOOD COUNT 4.46 10^6/uL (3.72-5.28); SEGMENTED NEUTROPHILS % (AUTO) 74.4 % (42-78); WHITE BLOOD COUNT 10.6 10^3/uL (4.0-10.5)
[2017-05-09] MEDS ORDERED: NORMAL SALINE 1000 ML 1,000 ML IV ONE (15:11)
[2017-05-09] MEDS ORDERED: ONDANSETRON HCL INJ/PF 4 MG/2 ML SDV IV ONE (15:12)
[2017-05-09 15:30] LABS: ALANINE AMINOTRANSFERASE 159 U/L (9-52); ALBUMIN 4.1 g/dL (3.5-5.0); ALKALINE PHOSPHATASE 131 U/L (38-126); ANION GAP 11 (5-19); ASPARTATE AMINO TRANSFERASE 60 U/L (14-36); BILIRUBIN,DIRECT 0.4 mg/dL (0.0-0.4); BILIRUBIN,TOTAL 0.5 mg/dL (0.2-1.3); BLOOD UREA NITROGEN 5 mg/dL (7-20); CALCIUM 9.6 mg/dL (8.4-10.2); CARBON DIOXIDE 29 mmol/L (22-30); CHLORIDE 103 mmol/L (98-107); CREATININE RESULT 0.65 mg/dL (0.52-1.25); GLUCOSE 89 mg/dL (75-110); POTASSIUM 3.9 mmol/L (3.6-5.0); SODIUM 142.9 mmol/L (137-145); TOTAL PROTEIN 7.4 g/dL (6.3-8.2)
--- NOTE | 2017-05-09 16:39 | RADIOLOGY REPORT (SQ) ---
EXAM DESCRIPTION: ACUTE ABDOMEN SERIES COMPLETED DATE/TIME: 05/09/2017 4:25 pm REASON FOR STUDY: 4 days post lap-choley, no BM, abd pain COMPARISON: None. NUMBER OF VIEWS: Three views. TECHNIQUE: Frontal chest, supine abdomen and upright/decubitus abdomen radiographic images acquired. LIMITATIONS: None. FINDINGS: CHEST: Lungs clear of infiltrates. FREE AIR: None. No abnormal gas collections. BOWEL GAS PATTERN: Nonobstructive pattern. No dilated loops or air fluid levels. CALCIFICATIONS: No suspicious calcifications. HARDWARE: Surgical clips are identified in the right upper quadrant. SOFT TISSUES: No gross mass or suggestion of organomegaly. BONES: No acute fracture. No worrisome bone lesions. OTHER: No other significant finding. IMPRESSION: NO RADIOGRAPHIC EVIDENCE FOR ACUTE ABDOMINAL DISEASE. TECHNICAL DOCUMENTATION: JOB ID: [id number] [employer]- All Rights Reserved
[2017-05-09] MEDS ORDERED: DEXTROSE 5%-LACTATED RINGERS 1,000 ML IV ONE (17:10)
[2017-05-09] MEDS ORDERED: KETOROLAC TROMETHAMINE INJ/PF 30 MG/1 ML SDV IV ONE (17:11)
[2017-05-09 17:42] LABS: APPEARANCE,URINE CLEAR; BILIRUBIN,URINE NEGATIVE (NEGATIVE); GLUCOSE, URINE NEGATIVE (NEGATIVE); KETONES,URINE TRACE mg/dL (NEGATIVE); LEUKOCYTE ESTERASE,URINE MODERATE (NEGATIVE); NITRITE,URINE NEGATIVE (NEGATIVE); PROTEIN,URINE NEGATIVE (NEGATIVE); URINE SPECIFIC GRAVITY 1.004; UROBILINOGEN,URINE NEGATIVE mg/dL (<2.0)
[2017-05-09] MEDS ORDERED: SULFAMETHOXAZOLE/TRIMETHOPRIM 800-160 MG TABLET PO ONE (18:07)
[2017-05-09 18:21] VITALS: BP 129/87
== END 2017-05-09 18:21 | disposition home or self-care (01) ==
LOC: ER 13:47
DX: N39.0 Urinary tract infection, site not specified (principal); R10.9 Unspecified abdominal pain; G89.18 Other acute postprocedural pain; Z98.890 Other specified postprocedural states; R63.0 Anorexia; R11.0 Nausea; K59.00 Constipation, unspecified
CPT/HCPCS: 99284; 96375; 96365; 36415; 87086; 85025; 87088; 80053; 81001; 74022; J1885; J2405; J7030; 87186

== ENCOUNTER 2017-06-11 14:50 | Emergency (ER) | payer OTHER, MEDICAID ==
[2017-06-11 15:19] LABS: APPEARANCE,URINE SLIGHTLY-CLOUDY; BILIRUBIN,URINE NEGATIVE (NEGATIVE); GLUCOSE, URINE NEGATIVE (NEGATIVE); KETONES,URINE NEGATIVE (NEGATIVE); LEUKOCYTE ESTERASE,URINE LARGE (NEGATIVE); NITRITE,URINE NEGATIVE (NEGATIVE); PROTEIN,URINE NEGATIVE (NEGATIVE); URINE SPECIFIC GRAVITY 1.003; UROBILINOGEN,URINE NEGATIVE mg/dL (<2.0)
--- NOTE | 2017-06-11 15:21 | ER Document Report ---
HPI - HPI Pain Level: 3 Notes: Patient is a 27-year-old female who presents the ED complaining of urinary frequency and low back pain with vaginal discharge 3 days. Patient states that a home test was negative. Patient states that her vaginal discharge is white and does not have any pain or discomfort associated with it. She still eating and drinking without difficulties. She still having normal bowel movements. Patient has not had any burning with urination or hematuria. She denies any injury to her lower back. The pain in her lower back as an ache and does not radiate. Patient denies any procedures or injections into her back. She denies any significant past medical history. Denies any headache, fever, neck pain, URI, sore throat, chest pain, palpitations, syncope, cough, shortness of breath, wheeze, dyspnea, abdominal pain, nausea/vomiting/diarrhea, urinary retention, loss of control of bowel or bladder, numbness/tingling, saddle anesthesia, muscle paralysis/weakness, or rash. Allergy to PCN's=> rash only. no anaphylaxis. - ROS Notes: REVIEW OF SYSTEMS: CONSTITUTIONAL : Denies fever, chills, or sweats. Denies recent illness. EENT: Denies eye, ear, throat, or mouth pain or symptoms. Denies nasal or sinus congestion or discharge. Denies throat, tongue, or mouth swelling or difficulty swallowing. CARDIOVASCULAR: Denies chest pain. Denies palpitations or racing or irregular heart beat. Denies ankle edema. RESPIRATORY: Denies cough, cold, or chest congestion. Denies shortness of breath, difficulty breathing, or wheezing. GASTROINTESTINAL: Denies abdominal pain or distention. Denies nausea, vomiting , or diarrhea. Denies blood in vomitus, stools, or per rectum. Denies black, tarry stools. Denies constipation. GENITOURINARY: see hpi : see hpi MUSCULOSKELETAL: see hpi SKIN: Denies rash, lesions or sores. NEUROLOGICAL: Denies confusion or altered mental status. Denies passing out or loss of consciousness. Denies dizziness or lightheadedness. Denies headache. Denies weakness or paralysis or loss of use of either side. Denies problems with gait or speech. Denies sensory loss, numbness, or tingling. ALL OTHER SYSTEMS REVIEWED AND NEGATIVE. Dictation was performed using edupristine voice recognition software - REPRODUCTIVE Reproductive: DENIES: : - DERM Skin Color: Normal Past Medical History - Social History Smoking Status: Never Smoker Family History: None, Reviewed & Not Pertinent - Past Medical History Cardiac Medical History: Reports: Hx Hypertension - Not on medication Denies: Hx Coronary Artery Disease, Hx Heart Attack Pulmonary Medical History: Reports: Hx Asthma Denies: Hx Bronchitis, Hx COPD, Hx Pneumonia Neurological Medical History: Denies: Hx Cerebrovascular Accident, Hx Seizures Renal/ Medical History: Reports: Hx Pelvic Inflammatory Disease. Denies: Hx Peritoneal Dialysis Musculoskeltal Medical History: Denies Hx Arthritis Psychiatric Medical History: Reports: Hx Bipolar Disorder, Hx Depression, Hx Post Traumatic Stress Disorder Past Surgical History: Reports: Hx Cholecystectomy, Hx Oral Surgery - wisdom tooth removal 07/2016, Hx Orthopedic Surgery - right ankle - Immunizations Immunizations up to date: Yes Hx Diphtheria, Pertussis, Tetanus Vaccination: Yes Vertical Provider Document - CONSTITUTIONAL Agree With Documented VS: Yes Notes: PHYSICAL EXAMINATION: GENERAL: Well-appearing, well-nourished and in no acute distress. A&O NECK: Normal range of motion, supple without lymphadenopathy LUNGS: Breath sounds clear to auscultation bilaterally and equal. No wheezes rales or rhonchi. HEART: Regular rate and rhythm without murmurs ABDOMEN: Soft, nontender, nondistended abdomen. No guarding, no rebound. No masses appreciated. Normal bowel sounds present. CVA tenderness negative bilaterally. Female : No inguinal adenopathy. External genitalia without erythema, lesions , or masses. Vaginal mucosa pink with scant white discharge. Cervix parous, pink, and without discharge. Uterus is smooth. No adnexal tenderness. Musculoskeletal: LE's b/l: FROM to passive/active. Strength 5+/5. Back: no ecchymosis, abrasion, laceration, deformity, or swelling. No step- offs. SLR neg b/l. + mild tenderness to the L-parapsinal mm. No vertebral point tenderness. Extremities: No cyanosis/clubbing/edema b/l. Peripheral pulses 2+. Capillary refill less than 3 seconds. NEUROLOGICAL: Normal speech, normal gait. Normal sensory, motor exams PSYCH: Normal mood, normal affect. SKIN: Warm, Dry, normal turgor, no rashes or lesions noted. - INFECTION CONTROL TRAVEL OUTSIDE OF THE [place] IN LAST 30 DAYS: No - RESPIRATORY O2 Sat by Pulse Oximetry: 100 Course - Re-evaluation Re-evalutation: 06/11/17 16:16 Patient is an afebrile, well-hydrated, 27-year-old female who presents to the ED with suspected UTI and low back pain, suspect possible strain. Vitals are stable. PE is otherwise unremarkable. Chlamydia and gonorrhea test are still pending. See urinalysis results. Urine culture is pending. Urine preg negative. Wet mount was unremarkable and inconclusive for trichomonas, but I have a low suspicion based on H&P today. I have a low suspicion for any systemic emergent condition at this time. Toradol given IM today as well as a Lidoderm patch. Rocephin and Zithromax were also given as precautionary. Recommend conservative measures for symptoms. Recheck with your PCM in 3-5 days. Consider consult with an [employer]IST[employer] MANAGER [employer]PERATIONS as well. Return to the ED with any worsening/concerning symptoms otherwise as reviewed in discharge. Patient is in agreement. - Vital Signs Vital signs: Temp Pulse Resp BP Pulse Ox 97.8 F 110 H 20 146/93 H 100 06/11/17 14:57 06/11/17 14:57 06/11/17 14:57 06/11/17 14:57 06/11/17 14:57 Procedures - Pelvic Exam Pelvic exam Time completed: 15:30 Cultures obtained: Yes Wet prep obtained: Yes Bimanual exam performed: Yes - neg Witnessed by: brenda Callejas PCT Discharge - Discharge Clinical Impression: UTI (urinary tract infection) Qualifiers: Urinary tract infection type: site unspecified Hematuria presence: with hematuria Qualified Code(s): N39.0 - Urinary tract infection, site not specified ; R31.9 - Hematuria, unspecified; R31.9 - Hematuria, unspecified Low back pain Qualifiers: Chronicity: acute Back pain laterality: bilateral Sciatica presence: without sciatica Qualified Code(s): M54.5 - Low back pain Condition: Stable Disposition: HOME, SELF-CARE Instructions: Toradol Injection ([facility]), Trimethoprim-Sulfa ([facility]), Urinary Tract Infection ([facility]), Ice Packs ([facility]), Warm Packs ([facility]), Low Back Pain ([facility]), Stretching Exercises for the Back ([facility]) Additional Instructions: Push fluids (i.e. water, cranberry juice) Proper hygenic technique Keep the skin clean Your chlamydia and gonorrhea test are pending and you may call tomorrow for your results, or you will be called if positive Tylenol/ibuprofen as needed May use over the counter AZO for burning with urination Take medications as directed F/u with your PCM in 3-5 days for a recheck Consider consult with a Urologist for ongoing/worsening symptoms. Return to the ED with any worsening symptoms and/or development of fever, headache, chest pain, palpitations, syncope, shortness of breath, trouble breathing, abdominal pain, n/v/d, blood in stool/urine, loss of control of bowel /bladder, urinary retention, or other worsening symptoms that are concerning to you. Prescriptions: Sulfamethoxazole/Trimethoprim [Bactrim Ds Tablet] 1 each PO BID #20 tablet Forms: Elevated Blood Pressure Referrals: LORE MARROQUIN DO [Primary Care Provider] - Follow up in 3-5 days [facility] [Provider Group] - Follow up as needed
[2017-06-11] MEDS ORDERED: LIDOCAINE 5% (700 MG) TRANSDERMAL ADH..PATCH TP ONE (15:22)
[2017-06-11] MEDS ORDERED: KETOROLAC TROMETHAMINE INJ/PF 30 MG/1 ML SDV IM ONE (15:29)
[2017-06-11] MEDS ORDERED: CEFTRIAXONE INJ 1000 MG VIAL IM ONE (15:32)
[2017-06-11] MEDS ORDERED: AZITHROMYCIN 250 MG TABLET PO ONE (15:32)
[2017-06-11] MEDS ORDERED: LIDOCAINE 1% INJ-PF (10 MG/ML) 30 ML SDV INJ ONE (15:32)
[2017-06-11 16:38] VITALS: BP 123/81
[2017-06-11 17:08] LABS: CHLAM PCR NOT DETECTED (NOT DETECT)
== END 2017-06-11 16:25 | disposition home or self-care (01) ==
LOC: ER 14:50
DX: N39.0 Urinary tract infection, site not specified (principal); R31.9 Hematuria, unspecified; M54.5 Low back pain; N89.8 Other specified noninflammatory disorders of vagina; I10 Essential (primary) hypertension; J45.909 Unspecified asthma, uncomplicated; Z88.0 Allergy status to penicillin; Z87.42 Personal history of other diseases of the female genital tract
CPT/HCPCS: 99283; 96372; 36415; 87086; 87210; 81025; 87088; 81001; 87491; 87591; J3490; J1885; J0696

== ENCOUNTER 2017-07-11 10:32 | Emergency (ER) | payer OTHER, MEDICAID ==
[2017-07-11] MEDS ORDERED: ONDANSETRON HCL INJ/PF 4 MG/2 ML SDV IV ONE (11:10)
--- NOTE | 2017-07-11 11:25 | ER Document Report ---
ED Medical Screen (RME) - General Chief Complaint: Nausea/Vomiting/Diarrhea Stated Complaint: ABDOMINAL PAIN,BACK PAIN Time Seen by Provider: 07/11/17 11:25 TRAVEL OUTSIDE OF THE [place] IN LAST 30 DAYS: No - HPI Notes: 07/11/17 11:25 Nausea vomiting diarrhea 3 days - Related Data Allergies/Adverse Reactions: morphine [Morphine] Allergy (Severe, Verified 06/11/17 14:56) Difficulty breathing/itch diphenhydramine HCl [From Benadryl] Allergy (Intermediate, Verified 06/11/17 14: 56) RASH iodine [Iodine] Allergy (Intermediate, Verified 06/11/17 14:56) RASH latex [Latex] Allergy (Intermediate, Verified 06/11/17 14:56) RASH amoxicillin [Amoxicillin] Allergy (Unknown, Verified 06/11/17 14:56) Hives Penicillins Allergy (Unknown, Verified 06/11/17 14:56) Hives codeine Allergy (Verified 06/11/17 14:56) Hives Past Medical History - Social History Chew tobacco use (# tins/day): No Frequency of alcohol use: Occasional Drug Abuse: None Family history: Hypertension, Other - copd - Past Medical History Cardiac Medical History: Reports: Hx Hypertension - Not on medication Denies: Hx Coronary Artery Disease, Hx Heart Attack Pulmonary Medical History: Reports: Hx Asthma Denies: Hx Bronchitis, Hx COPD, Hx Pneumonia Neurological Medical History: Denies: Hx Cerebrovascular Accident, Hx Seizures Renal/ Medical History: Reports: Hx Pelvic Inflammatory Disease. Denies: Hx Peritoneal Dialysis Musculoskeltal Medical History: Denies Hx Arthritis Psychiatric Medical History: Reports: Hx Bipolar Disorder, Hx Depression, Hx Post Traumatic Stress Disorder Past Surgical History: Reports: Hx Cholecystectomy, Hx Oral Surgery - wisdom tooth removal 07/2016, Hx Orthopedic Surgery - right ankle - Immunizations Immunizations up to date: Yes Hx Diphtheria, Pertussis, Tetanus Vaccination: Yes Physical Exam - Vital signs Vitals: Temp Pulse Resp BP Pulse Ox 97.9 F 113 H 20 150/92 H 99 07/11/17 10:43 07/11/17 10:43 07/11/17 10:43 07/11/17 10:43 07/11/17 10:43 - Respiratory Respiratory status: No respiratory distress Chest status: Nontender Breath sounds: Normal Chest palpation: Normal Course - Vital Signs Vital signs: Temp Pulse Resp BP Pulse Ox 97.9 F 113 H 20 150/92 H 99 07/11/17 10:43 07/11/17 10:43 07/11/17 10:43 07/11/17 10:43 07/11/17 10:43
[2017-07-11] MEDS: NORMAL SALINE 1000 ML 1,000 ML IV PRN ×2 (11:27→12:42)
[2017-07-11 11:36] LABS: APPEARANCE,URINE SLIGHTLY-CLOUDY; BILIRUBIN,URINE NEGATIVE (NEGATIVE); GLUCOSE, URINE NEGATIVE (NEGATIVE); KETONES,URINE NEGATIVE (NEGATIVE); LEUKOCYTE ESTERASE,URINE TRACE (NEGATIVE); NITRITE,URINE NEGATIVE (NEGATIVE); PROTEIN,URINE 30 mg/dL (NEGATIVE); URINE SPECIFIC GRAVITY 1.025; UROBILINOGEN,URINE NEGATIVE mg/dL (<2.0)
[2017-07-11 11:48] LABS: ABSOLUTE EOSINOPHILS # (AUTO) 0.2 10^3/uL (0.0-0.6); ABSOLUTE LYMPHOCYTES (AUTO) 1.5 10^3/uL (0.5-4.7); ABSOLUTE MONOCYTES (AUTO) 0.8 10^3/uL (0.1-1.4); ABSOLUTE NEUT (AUTO) 8.9 10^3/uL (1.7-8.2); BASOPHILS % (AUTO) 0.1 % (0-2); EOSINOPHILS % (AUTO) 1.4 % (0-6); HEMATOCRIT 39.6 % (36.0-47.0); HEMOGLOBIN 13.6 g/dL (12.0-15.5); HGB HCT DIFFERENCE 1.2; LYMPHOCYTES % (AUTO) 13.3 % (13-45); MEAN CORPUSCULAR HEMOGLOBIN 29.1 pg (27.0-33.4); MEAN CORPUSCULAR HGB CONC 34.2 g/dL (32.0-36.0); MEAN CORPUSCULAR VOLUME 85 fl (80-97); MONOCYTES % (AUTO) 6.8 % (3-13); RED BLOOD COUNT 4.65 10^6/uL (3.72-5.28); RED CELL DISTRIBUTION WIDTH 13.7 % (11.5-14.0); SEGMENTED NEUTROPHILS % (AUTO) 78.4 % (42-78); WHITE BLOOD COUNT 11.4 10^3/uL (4.0-10.5)
[2017-07-11 12:06] LABS: ALANINE AMINOTRANSFERASE 37 U/L (9-52); ALBUMIN 4.6 g/dL (3.5-5.0); ALKALINE PHOSPHATASE 116 U/L (38-126); ANION GAP 15 (5-19); ASPARTATE AMINO TRANSFERASE 23 U/L (14-36); BILIRUBIN,DIRECT 0.3 mg/dL (0.0-0.4); BILIRUBIN,TOTAL 0.6 mg/dL (0.2-1.3); BLOOD UREA NITROGEN 11 mg/dL (7-20); CALCIUM 9.4 mg/dL (8.4-10.2); CARBON DIOXIDE 23 mmol/L (22-30); CHLORIDE 106 mmol/L (98-107); CREATININE RESULT 0.71 mg/dL (0.52-1.25); GLUCOSE 89 mg/dL (75-110); LIPASE 64.6 U/L (23-300); POTASSIUM 4.2 mmol/L (3.6-5.0); SODIUM 144.2 mmol/L (137-145); TOTAL PROTEIN 7.9 g/dL (6.3-8.2)
[2017-07-11] MEDS ORDERED: KETOROLAC TROMETHAMINE INJ/PF 30 MG/1 ML SDV IV ONE (12:06)
[2017-07-11] MEDS ORDERED: METOCLOPRAMIDE HCL INJ/PF 10 MG/2 ML SDV IV ONE (12:06)
--- NOTE | 2017-07-11 12:08 | ER Document Report ---
ED GI/ - General Chief Complaint: Nausea/Vomiting/Diarrhea Stated Complaint: ABDOMINAL PAIN,BACK PAIN Time Seen by Provider: 07/11/17 11:25 Notes: The patient is a 27-year-old female, past medical history lap suzie 2 months ago , presents with 3 days of nausea, vomiting and watery diarrhea. She is also having diffuse abdominal cramping, worse in the right upper quadrant. She denies recent travel, fevers, sick contacts, hemoptysis, hematemesis or blood in stool. She is on her menses now. TRAVEL OUTSIDE OF THE [place] IN LAST 30 DAYS: No - Related Data Allergies/Adverse Reactions: morphine [Morphine] Allergy (Severe, Verified 06/11/17 14:56) Difficulty breathing/itch diphenhydramine HCl [From Benadryl] Allergy (Intermediate, Verified 06/11/17 14: 56) RASH iodine [Iodine] Allergy (Intermediate, Verified 06/11/17 14:56) RASH latex [Latex] Allergy (Intermediate, Verified 06/11/17 14:56) RASH amoxicillin [Amoxicillin] Allergy (Unknown, Verified 06/11/17 14:56) Hives Penicillins Allergy (Unknown, Verified 06/11/17 14:56) Hives codeine Allergy (Verified 06/11/17 14:56) Hives Past Medical History - General Information source: Patient - Social History Smoking Status: Current Some Day Smoker Chew tobacco use (# tins/day): No Frequency of alcohol use: Occasional Drug Abuse: None Family History: None, Reviewed & Not Pertinent Patient has suicidal ideation: No Patient has homicidal ideation: No - Past Medical History Cardiac Medical History: Reports: Hx Hypertension - Not on medication Denies: Hx Coronary Artery Disease, Hx Heart Attack Pulmonary Medical History: Reports: Hx Asthma Denies: Hx Bronchitis, Hx COPD, Hx Pneumonia Neurological Medical History: Denies: Hx Cerebrovascular Accident, Hx Seizures Renal/ Medical History: Reports: Hx Pelvic Inflammatory Disease. Denies: Hx Peritoneal Dialysis Musculoskeltal Medical History: Denies Hx Arthritis Psychiatric Medical History: Reports: Hx Bipolar Disorder, Hx Depression, Hx Post Traumatic Stress Disorder Past Surgical History: Reports: Hx Cholecystectomy, Hx Oral Surgery - wisdom tooth removal 07/2016, Hx Orthopedic Surgery - right ankle - Immunizations Immunizations up to date: Yes Hx Diphtheria, Pertussis, Tetanus Vaccination: Yes Review of Systems - Review of Systems Notes: REVIEW OF SYSTEMS: CONSTITUTIONAL: -fevers, -chills EENT: -eye pain, -difficulty swallowing, -nasal congestion CARDIOVASCULAR:-chest pain, -syncope. RESPIRATORY: -cough, -SOB GASTROINTESTINAL: +abdominal pain, +nausea, +vomiting, +diarrhea GENITOURINARY: -dysuria, -hematuria MUSCULOSKELETAL: +back pain, -neck pain SKIN: -rash or skin lesions. HEMATOLOGIC: -easy bruising or bleeding. LYMPHATIC: -swollen, enlarged glands. NEUROLOGICAL: -altered mental status or loss of consciousness, -headache, - neurologic symptoms PSYCHIATRIC: -anxiety, -depression. ALL OTHER SYSTEMS REVIEWED AND NEGATIVE. Physical Exam - Vital signs Vitals: Temp Pulse Resp BP Pulse Ox 97.9 F 113 H 20 150/92 H 99 07/11/17 10:43 07/11/17 10:43 07/11/17 10:43 07/11/17 10:43 07/11/17 10:43 - Notes Notes: PHYSICAL EXAMINATION: GENERAL: Well-appearing, well-nourished and in no acute distress. HEAD: Atraumatic, normocephalic. EYES: Pupils equal round and reactive to light, extraocular movements intact, sclera anicteric, conjunctiva are normal. ENT: nares patent, oropharynx clear without exudates. Moist mucous membranes. NECK: Normal range of motion, supple without lymphadenopathy LUNGS: Breath sounds clear to auscultation bilaterally and equal. No wheezes rales or rhonchi. HEART: Regular rate and rhythm without murmurs ABDOMEN: Soft, mild RUQ tenderness, normoactive bowel sounds. No guarding, no rebound. No masses appreciated. EXTREMITIES: Normal range of motion, no pitting or edema. No cyanosis. NEUROLOGICAL: Cranial nerves grossly intact. Normal speech, normal gait. Normal sensory and motor exams. PSYCH: Normal mood, normal affect. SKIN: Warm, Dry, normal turgor, no rashes or lesions noted. Course - Re-evaluation Re-evalutation: Patient with 3 days of nausea, vomiting and diarrhea. She had mild right upper quadrant abdominal pain and crampiness, but her ultrasound shows normal postoperative cholecystectomy changes and her blood work is completely unremarkable. Her urine shows RBCs, but patient is on her menses now and her symptoms are less consistent with kidney stones at this time. After IV fluids and antiemetics, patient is able to tolerate fluids and is requesting discharge. Will provide her with Phenergan and instructions to continue stay hydrated with follow-up at her primary care physician. - Vital Signs Vital signs: Temp Pulse Resp BP Pulse Ox 97.9 F 108 H 18 150/92 H 99 07/11/17 10:43 07/11/17 11:20 07/11/17 11:20 07/11/17 10:43 07/11/17 10:43 - Laboratory Result Diagrams: 07/11/17 11:25 07/11/17 11:25 Laboratory results interpreted by me: 07/11/17 07/11/17 11:20 11:25 WBC 11.4 H Seg Neutrophils % 78.4 H Absolute Neutrophils 8.9 H Urine Protein 30 H Urine Blood LARGE H Ur Leukocyte Esterase TRACE H - Diagnostic Test Radiology reviewed: Image reviewed, Reports reviewed Radiology results interpreted by me: JERMAINE US: NAD Discharge - Discharge Clinical Impression: Nausea vomiting and diarrhea Condition: Stable Disposition: HOME, SELF-CARE Additional Instructions: VOMITING: Vomiting (or nausea without vomiting) can be caused by many other different problems. It can mean that something's wrong with the stomach, such as ulcers or inflammation or the intestinal tract, such as appendicitis. But it can also be a symptom of a problem that has nothing to do with the stomach or intestines. Vomiting is common with severe headaches, earaches, tonsillitis, and kidney infections, etc. We see it with pneumonia or heart attacks. Drugs can cause nausea and vomiting. Many abdominal problems cause vomiting; for example, gallstones, kidney stones, pancreatitis, and intestinal obstruction ( blocked bowels). In most cases, curing the vomiting depends on fixing the problem that caused it. For temporary relief, we may use an anti-nausea medicine. For home use, we can prescribe suppositories, chewable pills, pills that dissolve in the mouth, or liquid anti-nausea drugs. If the vomiting seems to be caused by a problem in the stomach, acid-suppressing drugs may be prescribed as well. It's important to avoid dehydration. Sip small amounts of clear liquids ( soft drinks, tea, broth, etc) . Try to take fluids frequently even if you are vomiting to prevent dehydration. Take increasing amounts of fluid and when liquids are being consumed successfully, advance to small amounts of bland food (toast, soups, mashed potatoes, etc.) until you are able to resume a regular diet. Avoid aspirin, tobacco, and alcohol. If the vomiting worsens, if the problem that's making you vomit worsens, or if there's evidence of bleeding in the stomach (such as black, tarry stool, or bloody or black vomit), you should return immediately. Also, return if abdominal pain worsens or becomes localized to one area or you develop high fever. Call your doctor if you aren't improved in 24 hours. DIARRHEA, NON-SPECIFIC: Diarrhea means frequent, watery stools. There are many causes. Any problem that keeps the intestinal tract from absorbing water from the stool can lead to diarrhea. A sudden new diarrhea problem is usually caused by a virus, food sensitivity, toxic bacteria, or drugs. In this case, we expect the problem to go away soon. Testing is done only if you seem seriously ill from the diarrhea. If you have chronic diarrhea, or diarrhea that keeps coming back, we need to find out why. Chronic diarrhea can be due to inflammation of the bowels such as Crohn's disease or ulcerative colitis, food sensitivity such as intolerance to lactose or wheat protein, irritable bowel syndrome, and other problems. If your diarrhea is a significant problem but it's not clear why you have it, we' ll refer you to a specialist for further testing. During an episode of diarrhea, drink small amounts (two to six ounces) of clear liquids (soft drinks, sport drinks, herb teas, broth, etc). Take fluids frequently to prevent dehydration. It's usually not a problem to take mild anti- diarrhea medication such as Kaopectate or Pepto-Bismol. As the diarrhea eases, advance to small amounts of bland food (mashed potato, toast) for 24 hours. Call the physician if blood appears in your vomit or stool, if vomiting lasts longer than 24 hours, if the abdominal pain worsens or becomes localized to one area, if you develop high fever, or if you become lightheaded and weak. VIRAL SYNDROME: The physician has diagnosed a viral infection. Viruses not only cause "colds," but can cause many different symptoms including generalized aching, fever, headache, cough, diarrhea, nausea, vomiting, and fatigue. The treatment, for the most part, is simply relief of symptoms. This means that antibiotics are usually not given. Rest, fluids, pain medications and, occasionally, medication for the specific symptoms that are most bothersome will be prescribed. Use good handwashing to avoid passing the virus to others. Shared toys should be cleaned with disinfectant. Clean the toilets, sinks, and counter surfaces in bathrooms. Launder clothing in hot water. Contact the physician if you develop any new or unusual symptoms such as severe headache, stiff neck, high fever, chest pain, productive cough, or shortness of breath. You should be rechecked if you don't see marked improvement within seven to 10 days. INTRAVENOUS (I V) FLUIDS: As part of your care today, you received intravenous (IV) fluids. IV fluids are administered to patients who are dehydrated or to those who have certain chemical (electrolyte) abnormalities that need correcting. ANTINAUSEA MEDICATION: You have been given a medication to suppress nausea and vomiting. This type of medication can be given as a shot, pill, or suppository. It will usually last for many hours. Pills and shots usually last six to eight hours. For the typical illness, only one or two doses of the medication may be necessary. Mild lightheadedness may occur. This type of medicine can cause drowsiness. Do not drive or operate dangerous machinery while under its influence. Do not mix with alcohol. See your doctor at once if you have muscle spasms or tightness, or uncontrollable motions (particularly of the neck, mouth, or jaw). Persistent vomiting or severe lightheadedness should also be evaluated by the physician. FOLLOW-UP CARE: If you have been referred to a physician for follow-up care, call the physician s office for an appointment as you were instructed or within the next two days. If you experience worsening or a significant change in your symptoms, notify the physician immediately or return to the Emergency Department at any time for re-evaluation. Prescriptions: Promethazine HCl [Phenergan 25 mg Tablet] 1 - 2 tab PO Q6H PRN #15 tablet PRN Reason: Forms: Elevated Blood Pressure Referrals: BRUCE HORVATH MD [ACTIVE STAFF] - Follow up as needed
--- NOTE | 2017-07-11 12:54 | RADIOLOGY REPORT (SQ) ---
EXAM DESCRIPTION: U/S ABDOMEN LIMITED W/O DOP COMPLETED DATE/TIME: 07/11/2017 12:42 pm REASON FOR STUDY: RUQ pain s/p suzie, retained stone? COMPARISON: 05/03/2017. TECHNIQUE: Dynamic and static grayscale images acquired of the abdomen and recorded on PACS. Additio nal selected color Doppler and spectral images recorded. LIMITATIONS: None. FINDINGS: PANCREAS: No masses. Visualized pancreatic duct normal caliber. LIVER: No masses. Echotexture normal. LIVER VASCULATURE: Normal directional flow of the main portal vein and hepatic veins. GALLBLADDER: Surgically absent. No regional fluid collections. ULTRASOUND-DETECTED BILLINGS'S SIGN: Negative. INTRAHEPATIC DUCTS AND COMMON DUCT: CBD and intrahepatic ducts normal caliber. No filling defects. INFERIOR VENA CAVA: Normal flow. AORTA: No aneurysm. RIGHT KIDNEY: Normal size. Normal echogenicity. No solid or suspicious masses. No hydronephrosis. No calcifications. PERITONEAL AND RIGHT PLEURAL SPACE: No ascites or effusions. OTHER: No other significant findings. IMPRESSION: 1. Status post cholecystectomy. 2. Otherwise unremarkable right upper quadrant ultrasou nd. TECHNICAL DOCUMENTATION: JOB ID: [id number] All Rights Reserved
[2017-07-11 13:26] VITALS: BP 135/90
== END 2017-07-11 13:26 | disposition home or self-care (01) ==
LOC: ER 10:32 → EEVIPCON 10:32 → ER 13:26
DX: R11.2 Nausea with vomiting, unspecified (principal); R19.7 Diarrhea, unspecified; M54.9 Dorsalgia, unspecified; R10.11 Right upper quadrant pain; F17.200 Nicotine dependence, unspecified, uncomplicated; I10 Essential (primary) hypertension; Z90.49 Acquired absence of other specified parts of digestive tract; Z91.040 Latex allergy status; Z88.6 Allergy status to analgesic agent; Z88.0 Allergy status to penicillin
CPT/HCPCS: 99284; 96361; 96374; 96375; 36415; 84702; 83690; 85025; 80053; 81001; 76705; J1885; J2765; J2405; J7030

== ENCOUNTER 2017-08-01 21:31 | Emergency (ER) | payer MEDICAID, OTHER ==
[2017-08-01 21:57] VITALS: BP 154/99
--- NOTE | 2017-08-01 22:27 | ER Document Report ---
HPI - HPI Onset: Other - 2 days ago Onset/Duration: Sudden Pain Level: 3 Context: 27-year-old female was running 2 days ago and her right ankle caused her to fall on her right knee and right hip. She has been limping ever since due to knee and hip pain. Previous ankle injury in October 2016. Associated Symptoms: None Exacerbated by: Walking Relieved by: Denies Similar symptoms previously: No Recently seen / treated by doctor: No - ROS ROS below otherwise negative: Yes Systems Reviewed and Negative: Yes All other systems reviewed and negative - REPRODUCTIVE Reproductive: DENIES: : - MUSCULOSKELETAL Musculoskeletal: REPORTS: Extremity pain - RLE Past Medical History - General Information source: Patient - Social History Smoking Status: Never Smoker Frequency of alcohol use: None Drug Abuse: None Family History: None, Reviewed & Not Pertinent Patient has suicidal ideation: No Patient has homicidal ideation: No - Past Medical History Cardiac Medical History: Reports: Hx Hypertension - Not on medication Pulmonary Medical History: Reports: Hx Asthma Renal/ Medical History: Reports: Hx Pelvic Inflammatory Disease Musculoskeltal Medical History: Denies Hx Arthritis Psychiatric Medical History: Reports: Hx Bipolar Disorder, Hx Depression, Hx Post Traumatic Stress Disorder Past Surgical History: Reports: Hx Cholecystectomy, Hx Oral Surgery - wisdom tooth removal 07/2016, Hx Orthopedic Surgery - right ankle - Immunizations Immunizations up to date: Yes Hx Diphtheria, Pertussis, Tetanus Vaccination: Yes Vertical Provider Document - CONSTITUTIONAL Agree With Documented VS: Yes Exam Limitations: No Limitations General Appearance: No Apparent Distress - INFECTION CONTROL TRAVEL OUTSIDE OF THE [place] IN LAST 30 DAYS: No - HEENT HEENT: Normocephalic - NECK Neck: Supple - RESPIRATORY O2 Sat by Pulse Oximetry: 100 - MUSCULOSKELETAL/EXTREMETIES Musculoskeletal/Extremeties: MAEW, FROM, Tender - lateral right hip above the great trochantur, Eccymosis - anterior right I have consulted with the supervisory physician per [facility] Guidelines. knee, patellar tendon intact, miniml pain - NEURO Level of Consciousness: Awake, Alert, Appropriate - DERM Integumentary: Warm, Dry, No Rash Course - Re-evaluation Re-evalutation: 08/01/17 23:21 X-rays are negative patient wanted an Ion wrap - Vital Signs Vital signs: Temp Pulse Resp BP Pulse Ox 98.6 F 94 18 154/99 H 100 08/01/17 21:56 08/01/17 21:56 08/01/17 21:56 08/01/17 21:56 08/01/17 21:56 Procedures - Immobilization Right Knee Time completed: 23:32 Pre-Proc Neuro Vasc Exam: Normal Immobilizer type: Ion wrap, Crutches Performed by: PCT Post-Proc Neuro Vasc Exam: Normal Alignment checked and good: Yes Discharge - Discharge Clinical Impression: Strain of right hip Qualifiers: Encounter type: initial encounter Qualified Code(s): S76.011A - Strain of muscle, fascia and tendon of right hip, initial encounter Contusion of right knee Qualifiers: Encounter type: initial encounter Qualified Code(s): S80.01XA - Contusion of right knee, initial encounter Condition: Good Disposition: HOME, SELF-CARE Instructions: Acetaminophen, Contusion ([facility]), Use of Hetb-Ltf-Hhogduf Ibuprofen ([facility]), Muscle Strain ([facility]) Additional Instructions: warm compress to right hip crutches few days see orthopedic doctor if persists ion wrap few days to er any concerns Referrals: MEGHAN LOPEZ MD [ACTIVE STAFF] - Follow up as needed
--- NOTE | 2017-08-01 22:46 | RADIOLOGY REPORT (SQ) ---
EXAM DESCRIPTION: HIP RIGHT AP/LATERAL COMPLETED DATE/TIME: 08/01/2017 10:37 pm REASON FOR STUDY: fall 2 days ago COMPARISON: None. NUMBER OF VIEWS: Two views. TECHNIQUE: AP pelvis and additional frog-leg view of the right hip. LIMITATIONS: None. FINDINGS: MINERALIZATION: Normal. RIGHT HIP: No fracture or dislocation. No worrisome bone lesions. LEFT HIP: No fracture or dislocation. No worrisome bone lesions. PUBIS AND ISCHIUM: No fracture. PELVIS: No fracture. SACRUM: No fracture or dislocation. No worrisome bone lesions. LOWER LUMBAR SPINE: No fracture or dislocation. No worrisome bone lesions. No significant disc disea se. SOFT TISSUES: No findings. OTHER: No other significant finding. IMPRESSION: NEGATIVE STUDY OF THE RIGHT HIP. NO RADIOGRAPHIC EVIDENCE OF ACUTE INJURY. TECHNICAL DOCUMENTATION: JOB ID: [id number] [employer]- All Rights Reserved
--- NOTE | 2017-08-01 22:47 | RADIOLOGY REPORT (SQ) ---
EXAM DESCRIPTION: KNEE RIGHT 4 VIEWS COMPLETED DATE/TIME: 08/01/2017 10:37 pm REASON FOR STUDY: fall 2 days ago COMPARISON: None. NUMBER OF VIEWS: Four views. TECHNIQUE: AP, lateral, and both oblique radiographic images acquired of the right knee. LIMITATIONS: None. FINDINGS: MINERALIZATION: Normal. BONES: No acute fracture or dislocation. No worrisome bone lesions. JOINT: No effusion. SOFT TISSUES: No soft tissue swelling. No radio-opaque foreign body. OTHER: No other significant finding. IMPRESSION: NEGATIVE STUDY OF THE RIGHT KNEE. NO RADIOGRAPHIC EVIDENCE OF ACUTE INJURY. TECHNICAL DOCUMENTATION: JOB ID: [id number] [employer]- All Rights Reserved
== END 2017-08-01 23:43 | disposition home or self-care (01) ==
LOC: ER 21:31
DX: S76.011A Strain of muscle, fascia and tendon of right hip, initial encounter (principal); S80.01XA Contusion of right knee, initial encounter; W19.XXXA Unspecified fall, initial encounter; Y93.02 Activity, running; I10 Essential (primary) hypertension; J45.909 Unspecified asthma, uncomplicated
CPT/HCPCS: 99283

== ENCOUNTER 2017-08-04 20:02 | Emergency (ER) | payer MEDICAID ==
[2017-08-04] MEDS ORDERED: ACETAMINOPHEN 325 MG TABLET PO ONE (20:42)
[2017-08-04] MEDS ORDERED: NORMAL SALINE 1000 ML 1,000 ML IV ONE (20:42)
--- NOTE | 2017-08-04 20:46 | ER Document Report ---
ED Medical Screen (RME) - General Chief Complaint: Abdominal Pain Stated Complaint: ABDOMINAL PAIN Time Seen by Provider: 08/04/17 20:42 Notes: Patient presents with fever and right upper quadrant abdominal pain. She states she had her gallbladder removed May 05, 2017. She is having nausea. She says she has cough but no other respiratory symptoms. She has had a fever up to 102 at home. TRAVEL OUTSIDE OF THE [place] IN LAST 30 DAYS: No - Related Data Allergies/Adverse Reactions: morphine [Morphine] Allergy (Severe, Verified 06/11/17 14:56) Difficulty breathing/itch diphenhydramine HCl [From Benadryl] Allergy (Intermediate, Verified 06/11/17 14: 56) RASH iodine [Iodine] Allergy (Intermediate, Verified 06/11/17 14:56) RASH latex [Latex] Allergy (Intermediate, Verified 06/11/17 14:56) RASH amoxicillin [Amoxicillin] Allergy (Unknown, Verified 06/11/17 14:56) Hives Penicillins Allergy (Unknown, Verified 06/11/17 14:56) Hives codeine Allergy (Verified 06/11/17 14:56) Hives Past Medical History - Social History Chew tobacco use (# tins/day): No Frequency of alcohol use: Occasional Drug Abuse: None Family history: Hypertension, Other - copd - Past Medical History Cardiac Medical History: Reports: Hx Hypertension - Not on medication Denies: Hx Heart Attack Pulmonary Medical History: Reports: Hx Asthma Denies: Hx Bronchitis, Hx COPD, Hx Pneumonia Neurological Medical History: Denies: Hx Seizures Renal/ Medical History: Reports: Hx Pelvic Inflammatory Disease. Denies: Hx Peritoneal Dialysis Musculoskeltal Medical History: Denies Hx Arthritis Psychiatric Medical History: Reports: Hx Bipolar Disorder, Hx Depression, Hx Post Traumatic Stress Disorder Past Surgical History: Reports: Hx Cholecystectomy, Hx Oral Surgery - wisdom tooth removal 07/2016, Hx Orthopedic Surgery - right ankle - Immunizations Immunizations up to date: Yes Hx Diphtheria, Pertussis, Tetanus Vaccination: Yes Physical Exam - Vital signs Vitals: Temp Pulse Resp BP Pulse Ox 101.8 F H 123 H 22 H 160/100 H 100 08/04/17 20:38 08/04/17 20:38 08/04/17 20:38 08/04/17 20:38 08/04/17 20:38 Course - Vital Signs Vital signs: Temp Pulse Resp BP Pulse Ox 101.8 F H 123 H 22 H 160/100 H 100 08/04/17 20:38 08/04/17 20:38 08/04/17 20:38 08/04/17 20:38 08/04/17 20:38
[2017-08-04 21:36] LABS: ABSOLUTE EOSINOPHILS # (AUTO) 0.2 10^3/uL (0.0-0.6); ABSOLUTE LYMPHOCYTES (AUTO) 0.9 10^3/uL (0.5-4.7); ABSOLUTE MONOCYTES (AUTO) 0.8 10^3/uL (0.1-1.4); BASOPHILS % (AUTO) 0.5 % (0-2); EOSINOPHILS % (AUTO) 3.8 % (0-6); HEMATOCRIT 36.6 % (36.0-47.0); HEMOGLOBIN 12.7 g/dL (12.0-15.5); HGB HCT DIFFERENCE 1.5; LYMPHOCYTES % (AUTO) 14.9 % (13-45); MEAN CORPUSCULAR HEMOGLOBIN 29.7 pg (27.0-33.4); MEAN CORPUSCULAR HGB CONC 34.7 g/dL (32.0-36.0); MEAN CORPUSCULAR VOLUME 86 fl (80-97); MONOCYTES % (AUTO) 13.5 % (3-13); RED BLOOD COUNT 4.28 10^6/uL (3.72-5.28); RED CELL DISTRIBUTION WIDTH 13.5 % (11.5-14.0); SEGMENTED NEUTROPHILS % (AUTO) 67.3 % (42-78); WHITE BLOOD COUNT 5.9 10^3/uL (4.0-10.5)
[2017-08-04 21:37] LABS: VENOUS BLOOD BASE EXCESS 0.3 mmol/L; VENOUS BLOOD HCO3 24.5 mmol/L (20-32); VENOUS BLOOD PCO2 38.5 mmHg (35-63); VENOUS BLOOD PH 7.42 (7.30-7.42)
[2017-08-04 21:45] LABS: APPEARANCE,URINE CLOUDY; BILIRUBIN,URINE NEGATIVE (NEGATIVE); GLUCOSE, URINE NEGATIVE (NEGATIVE); KETONES,URINE NEGATIVE (NEGATIVE); LEUKOCYTE ESTERASE,URINE NEGATIVE (NEGATIVE); NITRITE,URINE NEGATIVE (NEGATIVE); PROTEIN,URINE 30 mg/dL (NEGATIVE); URINE SPECIFIC GRAVITY 1.018
--- NOTE | 2017-08-04 21:46 | RADIOLOGY REPORT (SQ) ---
EXAM DESCRIPTION: CHEST PA/LAT COMPLETED DATE/TIME: 08/04/2017 9:25 pm REASON FOR STUDY: fever/cough COMPARISON: 02/24/2017. EXAM PARAMETERS: NUMBER OF VIEWS: two views TECHNIQUE: Digital Frontal and Lateral radiographic views of the chest acquired. RADIATION DOSE: NA LIMITATIONS: none FINDINGS: LUNGS AND PLEURA: No opacities, masses or pneumothorax. No pleural effusion. MEDIASTINUM AND HILAR STRUCTURES: No masses or contour abnormalities. HEART AND VASCULAR STRUCTURES: Heart normal size. No evidence for failure. BONES: No acute findings. HARDWARE: None in the chest. OTHER: No other significant finding. IMPRESSION: NO SIGNIFICANT RADIOGRAPHIC FINDING IN THE CHEST. TECHNICAL DOCUMENTATION: JOB ID: [id number] [employer]- All Rights Reserved
[2017-08-04 21:54] LABS: ALANINE AMINOTRANSFERASE 142 U/L (9-52); ALBUMIN 4.6 g/dL (3.5-5.0); ALKALINE PHOSPHATASE 165 U/L (38-126); ANION GAP 15 (5-19); ASPARTATE AMINO TRANSFERASE 124 U/L (14-36); BILIRUBIN,DIRECT 0.1 mg/dL (0.0-0.4); BILIRUBIN,TOTAL 0.2 mg/dL (0.2-1.3); BLOOD UREA NITROGEN 7 mg/dL (7-20); CALCIUM 9.1 mg/dL (8.4-10.2); CARBON DIOXIDE 24 mmol/L (22-30); CHLORIDE 103 mmol/L (98-107); CREATININE RESULT 0.71 mg/dL (0.52-1.25); GLUCOSE 88 mg/dL (75-110); LIPASE 81.8 U/L (23-300); POTASSIUM 4.1 mmol/L (3.6-5.0); SODIUM 142.3 mmol/L (137-145); TOTAL PROTEIN 7.6 g/dL (6.3-8.2)
[2017-08-04] MEDS ORDERED: KETOROLAC TROMETHAMINE INJ/PF 30 MG/1 ML SDV IV ONE (22:38)
--- NOTE | 2017-08-04 22:42 | ER Document Report ---
ED General - General Chief Complaint: Abdominal Pain Stated Complaint: ABDOMINAL PAIN Time Seen by Provider: 08/04/17 20:42 Notes: Patient is a 27-year-old female with a surgical history of a cholecystectomy, no chronic medical problems who presents with 24 hours of persistent cough, sore throat, body aches, as well as upper abdominal pain. She states that the symptoms are this morning and have gotten progressively worse throughout the day. Nothing improves or worsens her symptoms. She describes the pain in her upper abdomen as a mild, constant, dull pain. Nothing improves or worsens that pain. She notes associated nausea without vomiting. She has had a fever at home up to 102.2. She has not seen her primary care doctor regarding today's concerns. Multiple sick contacts with similar symptoms. TRAVEL OUTSIDE OF THE [place] IN LAST 30 DAYS: No - Related Data Allergies/Adverse Reactions: morphine [Morphine] Allergy (Severe, Verified 06/11/17 14:56) Difficulty breathing/itch diphenhydramine HCl [From Benadryl] Allergy (Intermediate, Verified 06/11/17 14: 56) RASH iodine [Iodine] Allergy (Intermediate, Verified 06/11/17 14:56) RASH latex [Latex] Allergy (Intermediate, Verified 06/11/17 14:56) RASH amoxicillin [Amoxicillin] Allergy (Unknown, Verified 06/11/17 14:56) Hives Penicillins Allergy (Unknown, Verified 06/11/17 14:56) Hives codeine Allergy (Verified 06/11/17 14:56) Hives Past Medical History - General Information source: Patient - Social History Smoking Status: Current Every Day Smoker Chew tobacco use (# tins/day): No Frequency of alcohol use: Occasional Drug Abuse: None Lives with: Spouse/Significant other Family History: None, Reviewed & Not Pertinent Patient has suicidal ideation: No Patient has homicidal ideation: No - Past Medical History Cardiac Medical History: Reports: Hx Hypertension - Not on medication Denies: Hx Heart Attack Pulmonary Medical History: Reports: Hx Asthma Denies: Hx Bronchitis, Hx COPD, Hx Pneumonia Neurological Medical History: Denies: Hx Seizures Renal/ Medical History: Reports: Hx Pelvic Inflammatory Disease. Denies: Hx Peritoneal Dialysis Musculoskeltal Medical History: Denies Hx Arthritis Psychiatric Medical History: Reports: Hx Bipolar Disorder, Hx Depression, Hx Post Traumatic Stress Disorder Past Surgical History: Reports: Hx Cholecystectomy, Hx Oral Surgery - wisdom tooth removal 07/2016, Hx Orthopedic Surgery - right ankle - Immunizations Immunizations up to date: Yes Hx Diphtheria, Pertussis, Tetanus Vaccination: Yes Review of Systems - Review of Systems Notes: Constitutional: Positive for fever. HENT: Negative for sore throat. Eyes: Negative for visual changes. Cardiovascular: Negative for chest pain. Respiratory: Negative for shortness of breath. Positive for cough Gastrointestinal: Positive for abdominal pain and nausea. Positive for diarrhea Genitourinary: Negative for dysuria. Musculoskeletal: Negative for back pain. Skin: Negative for rash. Neurological: Negative for headaches, weakness or numbness. 10 point ROS negative except as marked above and in HPI. Physical Exam - Vital signs Vitals: Temp Pulse Resp BP Pulse Ox 101.8 F H 123 H 22 H 160/100 H 100 08/04/17 20:38 08/04/17 20:38 08/04/17 20:38 08/04/17 20:38 08/04/17 20:38 Interpretation: Tachycardic, Febrile Notes: PHYSICAL EXAMINATION: GENERAL: Appears mildly uncomfortable but in no distress HEAD: Atraumatic, normocephalic. EYES: Pupils equal round and reactive to light, extraocular movements intact, sclera anicteric, conjunctiva are normal. ENT: nares patent, oropharynx clear without exudates. Moderately dry mucous membranes. NECK: Normal range of motion, supple without lymphadenopathy LUNGS: Breath sounds clear to auscultation bilaterally and equal. No wheezes rales or rhonchi. HEART: Regular tachycardia without murmurs ABDOMEN: Soft, mild tenderness to the epigastrium and right upper quadrant without any otherwise localized tenderness, normoactive bowel sounds. No guarding, no rebound. No masses appreciated. EXTREMITIES: Normal range of motion, no pitting or edema. No cyanosis. NEUROLOGICAL: No focal neurological deficits. Moves all extremities spontaneously and on command. PSYCH: Normal mood, normal affect. SKIN: Warm, Dry, normal turgor, no rashes or lesions noted. Course - Re-evaluation Re-evalutation: 08/04/17 22:39 Patient presents with cough, nausea, upper abdominal cramping and fever at home consistent with a flulike illness although our flu test here is negative. Sensitivity for this years flu assay is apparently 91-92%. Clinical history and exam is not consistent with an acute bacterial meningitis, encephalitis, pneumonia, there is no evidence of a cellulitis on examination. Patient has a history of a cholecystectomy 3 months ago and although there is a mild transaminitis on today's LFT evaluations patient has had intermittent lab values that have been relatively consistent with today's LFTs. Moreover there is no elevation in bilirubin to suggest a choledocholithiasis I do not clinically suspect an ascending cholangitis. Patient likewise denies any urinary symptoms. Chest x-ray is clear without any evidence of an acute pneumonia. Urinalysis without any evidence of a pyelonephritis. Patient does not have any focal abdominal tenderness to suggest an acute appendicitis, acute mesenteric ischemia, bowel obstruction, bowel, or any other life-threatening acute intra-abdominal pathology as the etiology of the fever and additional symptoms today. Labs are otherwise unremarkable. Patient is tolerated oral intake without difficulty. Vitals at time of reassessment are within normal limits. At this time will discharge with return precautions and follow-up recommendations. Verbal discharge instructions given a the bedside and opportunity for questions given. Medication warnings reviewed. Patient is in agreement with this plan and has verbalized understanding of return precautions and the need for primary care follow-up in the next 24-72 hours. - Vital Signs Vital signs: Temp Pulse Resp BP Pulse Ox 101.8 F H 123 H 16 133/94 H 99 08/04/17 20:38 08/04/17 20:38 08/04/17 23:01 08/04/17 23:01 08/04/17 23:01 - Laboratory Result Diagrams: 08/04/17 21:05 08/04/17 21:05 Laboratory results interpreted by me: 08/04/17 08/04/17 08/04/17 21:05 21:05 21:15 Monocytes % 13.5 H AST 124 H ALT 142 H Alkaline Phosphatase 165 H Urine Protein 30 H Urine Blood LARGE H Urine Urobilinogen 2.0 H - Diagnostic Test Radiology reviewed: Image reviewed, Reports reviewed Radiology results interpreted by me: 08/04/17 22:41 Chest x-ray: No acute infiltrate or pneumothorax Discharge - Discharge Clinical Impression: Transaminitis Fever Qualifiers: Fever type: unspecified Qualified Code(s): R50.9 - Fever, unspecified Upper respiratory infection Qualifiers: URI type: unspecified URI Qualified Code(s): J06.9 - Acute upper respiratory infection, unspecified Condition: Fair Disposition: HOME, SELF-CARE Additional Instructions: Your symptoms are likely due to a viral infection either influenza or similar virus. The only treatment at this time is supportive care including drinking plenty of fluids, Tylenol and ibuprofen, as well as nausea medicines which you will be sent home with. Your symptoms will likely last for 7-10 days. Please return to the emergency department immediately if you become confused, have persistent vomiting, pass out, have severe headache, or have any other symptoms that are worrisome to you. Follow-up with your primary care doctor in the next several days. Please also have a recheck of your liver function test to ensure that they normalize. Prescriptions: Benzonatate [Tessalon Perles 100 mg Capsule] 100 mg PO Q8HP PRN #40 capsule PRN Reason:
[2017-08-04 23:03] VITALS: BP 133/94
== END 2017-08-04 23:03 | disposition home or self-care (01) ==
LOC: ER 20:02
DX: J02.9 Acute pharyngitis, unspecified (principal); R74.0 Nonspecific elevation of levels of transaminase and lactic acid dehydrogenase [LDH]; R05 Cough; R10.816 Epigastric abdominal tenderness; R10.811 Right upper quadrant abdominal tenderness; R11.0 Nausea; R19.7 Diarrhea, unspecified; R50.9 Fever, unspecified; I10 Essential (primary) hypertension; J45.909 Unspecified asthma, uncomplicated; Z88.5 Allergy status to narcotic agent; Z88.8 Allergy status to other drugs, medicaments and biological substances; Z91.040 Latex allergy status; Z88.0 Allergy status to penicillin; Z90.49 Acquired absence of other specified parts of digestive tract
CPT/HCPCS: 99284; 96361; 96374; 36415; 87040; 87086; 83690; 85025; 81025; 87088; 80053; 81001; 82803; 83605; 87804; 71020; J3490; J1885; J7030

== ENCOUNTER 2017-08-24 20:20 | Emergency (ER) | payer MEDICAID ==
[2017-08-24] MEDS ORDERED: METOCLOPRAMIDE HCL INJ/PF 10 MG/2 ML SDV IV ONE (21:02)
[2017-08-24] MEDS ORDERED: NORMAL SALINE 1000 ML 1,000 ML IV PRN (21:02)
--- NOTE | 2017-08-24 21:13 | ER Document Report ---
ED General - General Chief Complaint: Dizziness Stated Complaint: DIZZINESS Time Seen by Provider: 08/24/17 21:00 Notes: Patient is a 27-year-old female, , HTN (not on any meds), Hx of pre- eclampsia, PTSD, depression, anxiety, presents with 1 day of a diffuse headache that feels like a rubber band is squeezing. She is also having bilateral back pain. She went to the store and took a test which was positive. She is unsure of her last menstrual period. Patient has had her headache and back pain in the past. She started taking a metabolism-boosting medication and is feeling very jittery. She denies blurry vision, fevers, neck pain, chest pain, shortness of breath, vaginal bleeding, numbness, tingling, focal weakness, nausea, vomiting or abdominal pain. TRAVEL OUTSIDE OF THE [place] IN LAST 30 DAYS: No - Related Data Allergies/Adverse Reactions: morphine [Morphine] Allergy (Severe, Verified 06/11/17 14:56) Difficulty breathing/itch diphenhydramine HCl [From Benadryl] Allergy (Intermediate, Verified 06/11/17 14: 56) RASH iodine [Iodine] Allergy (Intermediate, Verified 06/11/17 14:56) RASH latex [Latex] Allergy (Intermediate, Verified 06/11/17 14:56) RASH amoxicillin [Amoxicillin] Allergy (Unknown, Verified 06/11/17 14:56) Hives Penicillins Allergy (Unknown, Verified 06/11/17 14:56) Hives codeine Allergy (Verified 06/11/17 14:56) Hives Past Medical History - General Information source: Patient - Social History Smoking Status: Never Smoker Chew tobacco use (# tins/day): No Frequency of alcohol use: None Drug Abuse: None Family History: None, Reviewed & Not Pertinent Patient has suicidal ideation: No Patient has homicidal ideation: No - Past Medical History Cardiac Medical History: Reports: Hx Hypertension - Not on medication Denies: Hx Heart Attack Pulmonary Medical History: Reports: Hx Asthma Denies: Hx Bronchitis, Hx COPD, Hx Pneumonia Neurological Medical History: Denies: Hx Seizures Renal/ Medical History: Reports: Hx Peritoneal Dialysis, Hx Pelvic Inflammatory Disease Musculoskeltal Medical History: Denies Hx Arthritis Psychiatric Medical History: Reports: Hx Bipolar Disorder, Hx Depression, Hx Post Traumatic Stress Disorder Past Surgical History: Reports: Hx Cholecystectomy, Hx Oral Surgery - wisdom tooth removal 07/2016, Hx Orthopedic Surgery - right ankle - Immunizations Immunizations up to date: Yes Hx Diphtheria, Pertussis, Tetanus Vaccination: Yes Review of Systems - Review of Systems Notes: REVIEW OF SYSTEMS: CONSTITUTIONAL: -fevers, -chills EENT: -eye pain, -difficulty swallowing, -nasal congestion CARDIOVASCULAR: -chest pain, -syncope. RESPIRATORY: -cough, -SOB GASTROINTESTINAL: -abdominal pain, -nausea, -vomiting, -diarrhea GENITOURINARY: -dysuria, -hematuria MUSCULOSKELETAL: +back pain, -neck pain SKIN: -rash or skin lesions. HEMATOLOGIC: -easy bruising or bleeding. LYMPHATIC: -swollen, enlarged glands. NEUROLOGICAL: -altered mental status or loss of consciousness, +headache, - neurologic symptoms PSYCHIATRIC: -anxiety, -depression. ALL OTHER SYSTEMS REVIEWED AND NEGATIVE. Physical Exam - Vital signs Vitals: Temp Pulse Resp BP Pulse Ox 98.1 F 121 H 24 H 178/97 H 100 08/24/17 20:39 08/24/17 20:39 08/24/17 20:39 08/24/17 20:39 08/24/17 20:39 - Notes Notes: PHYSICAL EXAMINATION: GENERAL: No acute distress. Very anxious. HEAD: Atraumatic, normocephalic. EYES: Pupils equal round and reactive to light, extraocular movements intact, sclera anicteric, conjunctiva are normal. ENT: nares patent, oropharynx clear without exudates. Moist mucous membranes. NECK: Normal range of motion, supple without lymphadenopathy LUNGS: Breath sounds clear to auscultation bilaterally and equal. No wheezes rales or rhonchi. HEART: Regular rate and rhythm without murmurs ABDOMEN: Soft, nontender, normoactive bowel sounds. No guarding, no rebound. No masses appreciated. EXTREMITIES: Normal range of motion, no pitting or edema. No cyanosis. NEUROLOGICAL: Cranial nerves grossly intact. Normal speech, normal gait. Normal sensory and motor exams. PSYCH: Anxious mood. SKIN: Warm, Dry, normal turgor, no rashes or lesions noted. Course - Re-evaluation Re-evalutation: Pt appears anxious. She feels like a rubber band squeezing her head and she has had this multiple times. She is anxious because she had a positive home test. Patient also with chronic back pain with multiple ER visits for this. No evidence of pyelonephritis and blood work is unremarkable, other than a slight leukocytosis, but no signs of infection, including no signs of meningitis. Her beta-HCG is only 32, but no abdominal pain. After fluids, Toradol and Reglan, her headache has completely resolved and she is no longer tachycardic and her BP has improved. She has a slight leukocytosis, but no signs of infection or fever. Her headache is atypical for meningitis, ICH, SAH or central venous thrombosis at this time. Will have her stay hydrated and take Tylenol for her headaches. Also instructed her to stop taking the diet pills because they are causing her increased anxiety, jitteriness and they may be unsafe for the fetus. Given very strict return precautions and she understands. - Vital Signs Vital signs: Temp Pulse Resp BP Pulse Ox 98.1 F 121 H 24 H 178/97 H 100 08/24/17 20:39 08/24/17 20:39 08/24/17 20:39 08/24/17 20:39 08/24/17 20:39 - Laboratory Result Diagrams: 08/24/17 21:03 08/24/17 21:03 Laboratory results interpreted by me: 08/24/17 08/24/17 08/24/17 21:03 21:03 21:09 WBC 13.4 H Absolute Neutrophils 9.7 H Potassium 3.2 L Beta HCG, Quant 31.29 H Urine Blood SMALL H Ur Leukocyte Esterase SMALL H Discharge - Discharge Clinical Impression: Early stage of , Hypokalemia Headache Qualifiers: Headache type: unspecified Headache chronicity pattern: chronic headache Intractability: not intractable Qualified Code(s): R51 - Headache Back pain Qualifiers: Back pain location: back pain in unspecified location Chronicity: chronic Back pain laterality: unspecified Qualified Code(s): M54.9 - Dorsalgia, unspecified Condition: Stable Disposition: HOME, SELF-CARE Additional Instructions: HEADACHE: The physician does not feel that the headache you are experiencing has a serious underlying cause. Most headaches are due to emotional stress, with resultant muscle tension (tension headache). Occasionally, headaches are secondary to changes in the blood vessels of the scalp (vascular headache and migraine headache). Sometimes, a headache is the first symptom of another developing illness, such as a viral infection. You have no evidence of stroke, bleeding, meningitis, or other serious cause of your headache. The treatment of headaches varies with the severity and cause of the pain. Not all headaches need pain shots. In fact, there is evidence that using narcotics for headaches may make them worse in the long run. The physician will determine the therapy that's in your best interest. If you develop a fever, if the headache is different from any you've previously experienced, or if the headache progressively worsens, then call your physician at once or go to the emergency room. REGLAN (METOCLOPRAMIDE): Reglan has been prescribed. This medicine affects the stomach and intestines. It can be used to treat nausea and vomiting, to prevent reflux of stomach acid up into the esophagus, or to increase the contractions of the stomach and intestines. It is often prescribed for esophagitis, and for paralysis of the stomach in diabetics. Reglan can cause either mild restlessness or drowsiness. You should contact the doctor at once if you become extremely restless, anxious, or cannot sleep, or if you develop uncontrollable motions of the lips, tongue, or jaw. Do not take alcohol with this medicine. Do not drive or operate machinery until you have been taking this medicine long enough to know how it affects you. Call the doctor if you develop abdominal pains, lightheadedness, black stool, or blood in the stool or vomitus. TORADOL INJECTION: You have been given an injection of ketorolac tromethamine (Toradol). This is an excellent, safe drug for pain control. It also has potent antiinflammatory action. You should have significant pain relief within about one hour. Toradol is not addicting and is non-sedating. It does not interfere with driving or work. Call or return if you develop itching, hives, shortness of breath, or rash. FOLLOW-UP CARE: If you have been referred to a physician for follow-up care, call the physician s office for an appointment as you were instructed or within the next two days. If you experience worsening or a significant change in your symptoms, notify the physician immediately or return to the Emergency Department at any time for re-evaluation. LOW BACK PAIN: Three out of every four people will have an episode of disabling back pain during their lifetime. Most commonly the pain is due to straining of the muscles and ligaments in the low back. Usual treatment includes: (1) Rest on a firm surface. Avoid lying on your stomach. (2) Ice pack the painful area. After a few days, gentle heat may be used intermittently to relax the area, or ice packs can be continued. (3) Medication may be needed -- muscle relaxers and antiinflammatory medicines are commonly used. (4) As the back improves, exercises are prescribed to strengthen the back and abdominal muscles. Your doctor will advise you on the proper care for your back at each stage in your recovery. You may be better in a few days -- or healing may take several weeks. If new symptoms of a "herniated disc" (radiation of pain, numbness, or tingling down the back of the leg or weakness in the leg) occur, you should be re-examined. Further testing may be necessary. ICE PACKS: Apply ice packs frequently against the painful area. Many different schedules are recommended, such as "20 minutes on, 20 minutes off" or "one hour ice, two hours rest." If you need to work, you may need to go longer between ice treatments. You should plan to have the area ice packed AT LEAST one fourth of the time. The ice should be applied over the wrap, tape, or splint, or over a layer of cloth -- not directly against the skin. Some ice bags have a built-in cloth and can be put directly on the skin. WARM PACKS: After approximately two days, apply gentle heat (such as a heating pad or hot water bottle) for about 20 to 30 minutes about every two hours -- at least four times daily. Warmth and elevation will help you make a more rapid recovery , and will ease the pain considerably. Do not use HOT heat, and never apply heat for longer than 30 minutes. The continuous heat can invisibly damage skin and muscles -- even when no burn is seen on the surface. Damaged muscles can make you MORE sore. FOLLOW-UP CARE: If you have been referred to a physician for follow-up care, call the physician s office for an appointment as you were instructed or within the next two days. If you experience worsening or a significant change in your symptoms, notify the physician immediately or return to the Emergency Department at any time for re-evaluation. Forms: Elevated Blood Pressure Referrals: [facility] [Provider Group] - Follow up as needed
[2017-08-24 21:41] LABS: APPEARANCE,URINE CLOUDY; BILIRUBIN,URINE NEGATIVE (NEGATIVE); GLUCOSE, URINE NEGATIVE (NEGATIVE); KETONES,URINE NEGATIVE (NEGATIVE); LEUKOCYTE ESTERASE,URINE SMALL (NEGATIVE); NITRITE,URINE NEGATIVE (NEGATIVE); PROTEIN,URINE NEGATIVE (NEGATIVE); URINE SPECIFIC GRAVITY 1.006; UROBILINOGEN,URINE NEGATIVE mg/dL (<2.0)
[2017-08-24 21:42] LABS: COLOR,URINE YELLOW
[2017-08-24 21:47] LABS: ABSOLUTE BASOPHILS # (AUTO) 0.1 10^3/uL (0.0-0.2); ABSOLUTE EOSINOPHILS # (AUTO) 0.2 10^3/uL (0.0-0.6); ABSOLUTE LYMPHOCYTES (AUTO) 2.6 10^3/uL (0.5-4.7); ABSOLUTE MONOCYTES (AUTO) 0.9 10^3/uL (0.1-1.4); ABSOLUTE NEUT (AUTO) 9.7 10^3/uL (1.7-8.2); BASOPHILS % (AUTO) 0.5 % (0-2); EOSINOPHILS % (AUTO) 1.3 % (0-6); HEMATOCRIT 36.1 % (36.0-47.0); HEMOGLOBIN 12.2 g/dL (12.0-15.5); LYMPHOCYTES % (AUTO) 19.2 % (13-45); MEAN CORPUSCULAR HEMOGLOBIN 28.6 pg (27.0-33.4); MEAN CORPUSCULAR HGB CONC 33.7 g/dL (32.0-36.0); MEAN CORPUSCULAR VOLUME 85 fl (80-97); MONOCYTES % (AUTO) 6.8 % (3-13); PLATELET COUNT 411 10^3/uL (150-450); RED BLOOD COUNT 4.26 10^6/uL (3.72-5.28); SEGMENTED NEUTROPHILS % (AUTO) 72.2 % (42-78); TOTAL CELLS COUNTED % (AUTO) 100 %; WHITE BLOOD COUNT 13.4 10^3/uL (4.0-10.5)
[2017-08-24] MEDS ORDERED: KETOROLAC TROMETHAMINE INJ/PF 30 MG/1 ML SDV IV ONE (21:49)
[2017-08-24 21:53] LABS: ALANINE AMINOTRANSFERASE 38 U/L (9-52); ALBUMIN 4.4 g/dL (3.5-5.0); ALKALINE PHOSPHATASE 112 U/L (38-126); ANION GAP 10 (5-19); ASPARTATE AMINO TRANSFERASE 23 U/L (14-36); BILIRUBIN,DIRECT 0.2 mg/dL (0.0-0.4); BILIRUBIN,TOTAL 0.2 mg/dL (0.2-1.3); BLOOD UREA NITROGEN 8 mg/dL (7-20); CALCIUM 9.3 mg/dL (8.4-10.2); CARBON DIOXIDE 26 mmol/L (22-30); CHLORIDE 103 mmol/L (98-107); GLUCOSE 101 mg/dL (75-110); LIPASE 77.7 U/L (23-300); POTASSIUM 3.2 mmol/L (3.6-5.0); TOTAL PROTEIN 7.5 g/dL (6.3-8.2)
[2017-08-24] MEDS ORDERED: POTASSIUM CHLORIDE 10 MEQ TABLET.SA PO ONE (22:23)
[2017-08-24 22:56] VITALS: BP 139/88
== END 2017-08-24 22:59 | disposition home or self-care (01) ==
LOC: ER 20:20
DX: O26.91 Pregnancy related conditions, unspecified, first trimester (principal); R42 Dizziness and giddiness; E87.6 Hypokalemia; R51 Headache; M54.9 Dorsalgia, unspecified; Z88.6 Allergy status to analgesic agent; Z88.0 Allergy status to penicillin; Z91.040 Latex allergy status
CPT/HCPCS: 99284; 96374; 96375; 36415; 84702; 83690; 85025; 81025; 80053; 81001; J1885; J2765; J7030

== ENCOUNTER 2017-08-30 11:15 | Emergency (ER) | payer MEDICAID ==
[2017-08-30 11:24] VITALS: BP 133/83
--- NOTE | 2017-08-30 11:55 | ER Document Report ---
HPI - HPI Patient complains to provider of: Needs blood draw Onset: Other Quality of pain: No pain Pain Level: Denies Context: 27-year-old female presented to ED for blood draw she states that she had pelvic cramping in early was seen in [facility] on the and was told to get a repeat hCG today. He did not give her a slip to have the blood redrawn so she is come to the emergency room to have the blood redrawn. Her hCG on August 24 was 33 on the it was 122. Associated Symptoms: None Exacerbated by: Denies Relieved by: Denies Similar symptoms previously: Yes Recently seen / treated by doctor: Yes - ROS ROS below otherwise negative: Yes - CONSTITUTIONAL Constitutional: DENIES: Fever, Chills - EENT EENT: DENIES: Sore Throat, Ear Pain, Nasal Drainage-Clear, Nasal Drainage- Purulent, Congestion, Eye problems - NEURO Neurology: DENIES: Headache, Weakness, Vision blurred, Dizzinesss / Vertigo - CARDIOVASCULAR Cardiovascular: DENIES: Chest pain - RESPIRATORY Respiratory: DENIES: Trouble Breathing, Coughing - GASTROINTESTINAL Gastrointestinal: DENIES: Abdominal Pain, Nausea, Patient vomiting, Diarrhea, Constipation, Black / Bloody Stools - URINARY Urinary: DENIES: Dysuria, Urgency, Frequency - REPRODUCTIVE Reproductive: REPORTS: :. DENIES: Postmenopausal, Abnormal bleeding / discharge - MUSCULOSKELETAL Musculoskeletal: DENIES: Extremity pain, Back Pain, Neck Pain, Swelling - DERM Skin Color: Normal Skin Problems: None Past Medical History - General Information source: Patient - Social History Smoking Status: Never Smoker Cigarette use (# per day): No Chew tobacco use (# tins/day): No Smoking Education Provided: No Frequency of alcohol use: None Drug Abuse: None Occupation: none Lives with: Spouse/Significant other Family History: CAD, COPD, CVA, DM, Hyperlipidemia, Hypertension. denies: Arthritis, Malignancy, Thyroid Disfunction Patient has suicidal ideation: No Patient has homicidal ideation: No - Past Medical History Cardiac Medical History: Reports: Hx Hypertension - Not on medication Pulmonary Medical History: Reports: Hx Asthma EENT Medical History: Reports: None Neurological Medical History: Reports: None Endocrine Medical History: Reports: None Renal/ Medical History: Reports: Hx Pelvic Inflammatory Disease Malignancy Medical History: Reports: None GI Medical History: Reports: None Musculoskeltal Medical History: Reports Hx Musculoskeletal Trauma Skin Medical History: Reports None Psychiatric Medical History: Reports: Hx Bipolar Disorder, Hx Depression, Hx Post Traumatic Stress Disorder Traumatic Medical History: Reports: Hx Fractures - Fractured ankle Infectious Medical History: Reports: None Past Surgical History: Reports: Hx Cholecystectomy, Hx Oral Surgery - wisdom tooth removal 07/2016, Hx Orthopedic Surgery - right ankle - Immunizations Immunizations up to date: Yes Hx Diphtheria, Pertussis, Tetanus Vaccination: Yes Vertical Provider Document - CONSTITUTIONAL Agree With Documented VS: Yes Exam Limitations: No Limitations General Appearance: WD/WN, No Apparent Distress - INFECTION CONTROL TRAVEL OUTSIDE OF THE [place] IN LAST 30 DAYS: No - HEENT HEENT: Atraumatic, Normal ENT Exam, Normocephalic, PERRLA - NECK Neck: Normal Inspection - RESPIRATORY Respiratory: Breath Sounds Normal, No Respiratory Distress O2 Sat by Pulse Oximetry: 100 - CARDIOVASCULAR Cardiovascular: Regular Rate, Regular Rhythm - GI/ABDOMEN Gastrointestinal: Abdomen Soft, Abdomen Non-Tender, No Organomegaly, Normal Bowel Sounds - BACK Back: Normal Inspection - MUSCULOSKELETAL/EXTREMETIES Musculoskeletal/Extremeties: MAEW, FROM, Non-Tender - NEURO Level of Consciousness: Awake, Alert, Appropriate - DERM Integumentary: Warm, Dry, No Rash Course - Re-evaluation Re-evalutation: 08/30/17 11:57 HCG level ordered will follow up. 08/30/17 13:28 HCG to 31. Patient given a copy of the report and instructed to follow-up with her primary doctor and [facility]. - Vital Signs Vital signs: Temp Pulse Resp BP Pulse Ox 97.8 F 98 20 133/83 H 100 08/30/17 11:23 08/30/17 11:23 08/30/17 11:23 08/30/17 11:23 08/30/17 11:23 Discharge - Discharge Clinical Impression: Early stage of Condition: Stable Disposition: HOME, SELF-CARE Instructions: Family Physicians / Practices Additional Instructions: Her hCG today was 231. This is too small to show on ultrasound. This is very early . Follow-up with your primary doctor or your OBG any continued discomfort. Mild cramping or mild bleeding is not unusual during early . You stated you blood type is O+. This is her third . You are . care is best started as early in as possible. If you're unsure about continuing this , you should discuss this with your physician or with lean manufacturing leader at [facility]. You should take only medications approved by your physician. Acetaminophen can safely be taken for minor pains. As a rule, medication for chronic conditions such as asthma or seizures can safely be continued. You should discuss with the physician every medicine you take. Any regular exercise program can be continued. Talk to your physician, however, before engaging in competitive or demanding sports. Alcohol, smoking, and "street drugs" are dangerous to your baby. Cocaine is especially dangerous. Don't use any illicit drugs! FOLLOW-UP CARE: If you have been referred to a physician for follow-up care, call the physician s office for an appointment as you were instructed or within the next two days. If you experience worsening or a significant change in your symptoms, notify the physician immediately or return to the Emergency Department at any time for re-evaluation. Referrals: GLENN ROSS MD [Primary Care Provider] - Follow up as needed
== END 2017-08-30 13:47 | disposition home or self-care (01) ==
LOC: ER 11:15
DX: O20.9 Hemorrhage in early pregnancy, unspecified (principal); Z90.49 Acquired absence of other specified parts of digestive tract
CPT/HCPCS: 36415; 84702; 99283

== ENCOUNTER 2017-09-05 18:27 | Emergency (ER) | payer MEDICAID ==
--- NOTE | 2017-09-05 19:28 | ER Document Report ---
ED Medical Screen (RME) - General Chief Complaint: Pelvic Pain Stated Complaint: PELVIC PAIN Time Seen by Provider: 09/05/17 19:21 Mode of Arrival: Ambulatory Information source: Patient Notes: 27-year-old female presenting with complaints of lower abdominal pain. Patient is , 5 weeks . Patient complains of lower abdominal "achiness". Patient also has dysuria and right flank pain. Patient denies vaginal bleeding. TRAVEL OUTSIDE OF THE [place] IN LAST 30 DAYS: No - Related Data Allergies/Adverse Reactions: morphine [Morphine] Allergy (Severe, Verified 08/30/17 11:20) Difficulty breathing/itch diphenhydramine HCl [From Benadryl] Allergy (Intermediate, Verified 08/30/17 11: 20) RASH iodine [Iodine] Allergy (Intermediate, Verified 08/30/17 11:20) RASH latex [Latex] Allergy (Intermediate, Verified 08/30/17 11:20) RASH amoxicillin [Amoxicillin] Allergy (Unknown, Verified 08/30/17 11:20) Hives Penicillins Allergy (Unknown, Verified 08/30/17 11:20) Hives codeine Allergy (Verified 08/30/17 11:20) Hives Past Medical History - General Information source: Patient - Social History Cigarette use (# per day): No Chew tobacco use (# tins/day): No Frequency of alcohol use: None Drug Abuse: None Lives with: Family Family history: Reviewed & Not Pertinent, Hypertension, Other - copd - Past Medical History Cardiac Medical History: Reports: Hx Hypertension - Not on medication Pulmonary Medical History: Reports: Hx Asthma Renal/ Medical History: Reports: Hx Pelvic Inflammatory Disease Musculoskeltal Medical History: Reports Hx Musculoskeletal Trauma Psychiatric Medical History: Reports: Hx Bipolar Disorder, Hx Depression, Hx Post Traumatic Stress Disorder Traumatic Medical History: Reports: Hx Fractures - Fractured ankle Past Surgical History: Reports: Hx Cholecystectomy, Hx Oral Surgery - wisdom tooth removal 07/2016, Hx Orthopedic Surgery - right ankle - Immunizations Immunizations up to date: Yes Hx Diphtheria, Pertussis, Tetanus Vaccination: Yes Review of Systems - Review of Systems Constitutional: No symptoms reported EENT: No symptoms reported Cardiovascular: No symptoms reported Respiratory: No symptoms reported Gastrointestinal: See HPI, Abdominal pain Genitourinary: See HPI, Dysuria Female Genitourinary: See HPI, . denies: Vaginal bleeding Musculoskeletal: No symptoms reported Skin: No symptoms reported Hematologic/Lymphatic: No symptoms reported Neurological/Psychological: No symptoms reported -: Yes All other systems reviewed and negative Physical Exam - Vital signs Vitals: Temp Pulse Resp BP Pulse Ox 98.3 F 115 H 14 151/99 H 100 09/05/17 18:38 09/05/17 18:38 09/05/17 18:38 09/05/17 18:38 09/05/17 18:38 - General General appearance: Appears well, Alert In distress: None - Respiratory Respiratory status: No respiratory distress - Cardiovascular Rhythm: Regular Heart sounds: Normal auscultation Murmur: No - Abdominal Distension: No distension Tenderness: Tender - mild suprapubic ttp - Back Back: Tender, CVA tenderness - Right - Neurological Neuro grossly intact: Yes Cognition: Normal Orientation: AAOx4 - Psychological Associated symptoms: Normal affect, Normal mood - Skin Skin Temperature: Warm Skin Moisture: Dry Skin Color: Normal Course - Vital Signs Vital signs: Temp Pulse Resp BP Pulse Ox 98.3 F 115 H 14 151/99 H 100 09/05/17 18:38 09/05/17 18:38 09/05/17 18:38 09/05/17 18:38 09/05/17 18:38 Scribe Documentation - Scribe Written by Clay:: Clay Alexander, 09/05/2017 193 acting as scribe for :: Cl
[2017-09-05 19:50] LABS: ABSOLUTE EOSINOPHILS # (AUTO) 0.3 10^3/uL (0.0-0.6); ABSOLUTE LYMPHOCYTES (AUTO) 2.6 10^3/uL (0.5-4.7); ABSOLUTE NEUT (AUTO) 7.1 10^3/uL (1.7-8.2); BASOPHILS % (AUTO) 0.4 % (0-2); EOSINOPHILS % (AUTO) 2.6 % (0-6); HEMATOCRIT 36.8 % (36.0-47.0); HEMOGLOBIN 12.4 g/dL (12.0-15.5); LYMPHOCYTES % (AUTO) 23.7 % (13-45); MEAN CORPUSCULAR HEMOGLOBIN 29.1 pg (27.0-33.4); MEAN CORPUSCULAR HGB CONC 33.7 g/dL (32.0-36.0); MEAN CORPUSCULAR VOLUME 86 fl (80-97); MONOCYTES % (AUTO) 8.6 % (3-13); PLATELET COUNT 469 10^3/uL (150-450); RED BLOOD COUNT 4.25 10^6/uL (3.72-5.28); RED CELL DISTRIBUTION WIDTH 13.3 % (11.5-14.0); SEGMENTED NEUTROPHILS % (AUTO) 64.7 % (42-78); TOTAL CELLS COUNTED % (AUTO) 100 %
[2017-09-05 20:00] LABS: APPEARANCE,URINE CLEAR; BILIRUBIN,URINE NEGATIVE (NEGATIVE); COLOR,URINE YELLOW; GLUCOSE, URINE NEGATIVE (NEGATIVE); KETONES,URINE NEGATIVE (NEGATIVE); LEUKOCYTE ESTERASE,URINE NEGATIVE (NEGATIVE); NITRITE,URINE NEGATIVE (NEGATIVE); PROTEIN,URINE NEGATIVE (NEGATIVE); URINE SPECIFIC GRAVITY 1.008; UROBILINOGEN,URINE NEGATIVE mg/dL (<2.0)
--- NOTE | 2017-09-05 21:21 | ER Document Report ---
ED General - General Chief Complaint: Pelvic Pain Stated Complaint: PELVIC PAIN Time Seen by Provider: 09/05/17 19:21 Mode of Arrival: Ambulatory Notes: Patient is a 27 year old female currently 4-5 weeks who presents with several days of intermittent lower abdominal pain and cramping. Pain is described as intermittent, mild, and relatively unchanged since onset. Nothing improves or worsens that pain. She states she was concerned she did not have similar symptoms during her prior pregnancies. She has not had any vaginal bleeding or discharge. She denies any fever or constitutional symptoms. 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 TRAVEL OUTSIDE OF THE [place] IN LAST 30 DAYS: No - Related Data Allergies/Adverse Reactions: morphine [Morphine] Allergy (Severe, Verified 08/30/17 11:20) Difficulty breathing/itch diphenhydramine HCl [From Benadryl] Allergy (Intermediate, Verified 08/30/17 11: 20) RASH iodine [Iodine] Allergy (Intermediate, Verified 08/30/17 11:20) RASH latex [Latex] Allergy (Intermediate, Verified 08/30/17 11:20) RASH amoxicillin [Amoxicillin] Allergy (Unknown, Verified 08/30/17 11:20) Hives Penicillins Allergy (Unknown, Verified 08/30/17 11:20) Hives codeine Allergy (Verified 08/30/17 11:20) Hives Past Medical History - General Information source: Patient - Social History Smoking Status: Never Smoker Cigarette use (# per day): No Chew tobacco use (# tins/day): No Frequency of alcohol use: None Drug Abuse: None Lives with: Family Family History: CAD, COPD, CVA, DM, Hyperlipidemia, Hypertension. denies: Arthritis, Malignancy, Thyroid Disfunction Patient has suicidal ideation: No Patient has homicidal ideation: No - Past Medical History Cardiac Medical History: Reports: Hx Hypertension - Not on medication Denies: Hx Heart Attack Pulmonary Medical History: Reports: Hx Asthma Denies: Hx Bronchitis, Hx COPD, Hx Pneumonia Neurological Medical History: Denies: Hx Seizures Renal/ Medical History: Reports: Hx Pelvic Inflammatory Disease. Denies: Hx Peritoneal Dialysis Musculoskeltal Medical History: Denies Hx Arthritis, Reports Hx Musculoskeletal Trauma Psychiatric Medical History: Reports: Hx Bipolar Disorder, Hx Depression, Hx Post Traumatic Stress Disorder Traumatic Medical History: Reports: Hx Fractures - Fractured ankle Past Surgical History: Reports: Hx Cholecystectomy, Hx Oral Surgery - wisdom tooth removal 07/2016, Hx Orthopedic Surgery - right ankle - Immunizations Immunizations up to date: Yes Hx Diphtheria, Pertussis, Tetanus Vaccination: Yes Review of Systems - Review of Systems Notes: Constitutional: Negative for fever. HENT: Negative for sore throat. Eyes: Negative for visual changes. Cardiovascular: Negative for chest pain. Respiratory: Negative for shortness of breath. Gastrointestinal: Positive for lower abdominal cramping Genitourinary: Negative for dysuria. Musculoskeletal: Negative for back pain. Skin: Negative for rash. Neurological: Negative for headaches, weakness or numbness. 10 point ROS negative except as marked above and in HPI. Physical Exam - Vital signs Vitals: Temp Pulse Resp BP Pulse Ox 98.3 F 114 H 14 151/99 H 100 09/05/17 18:32 09/05/17 18:32 09/05/17 18:32 09/05/17 18:32 09/05/17 18:32 Interpretation: Tachycardic Notes: PHYSICAL EXAMINATION: GENERAL: Well-appearing, well-nourished and in no acute distress. HEAD: Atraumatic, normocephalic. EYES: Pupils equal round and reactive to light, extraocular movements intact, sclera anicteric, conjunctiva are normal. ENT: nares patent, oropharynx clear without exudates. Moist mucous membranes. NECK: Normal range of motion, supple without lymphadenopathy LUNGS: Breath sounds clear to auscultation bilaterally and equal. No wheezes rales or rhonchi. HEART: Regular rate and rhythm without murmurs ABDOMEN: Soft, nontender, normoactive bowel sounds. No guarding, no rebound. No masses appreciated. EXTREMITIES: Normal range of motion, no pitting or edema. No cyanosis. NEUROLOGICAL: No focal neurological deficits. Moves all extremities spontaneously and on command. PSYCH: Normal mood, normal affect. SKIN: Warm, Dry, normal turgor, no rashes or lesions noted. Course - Re-evaluation Re-evalutation: 09/05/17 21:21 Patient is currently and presenting with lower abdominal pain. No vaginal bleeding or discharge. Patient denies any dysuria and urinalysis is not consistent with an acute urinary tract infection. The patient does not have any focal right lower quadrant tenderness, rebound or guarding to suggest acute appendicitis. No right upper quadrant tenderness to suggest cholestasis of or an acute cholecystitis. Patient has tolerated oral intake here in the emergency department without difficulty. Transvaginal ultrasound does identify a possible intrauterine gestational sac but the radiologist, that he cannot definitively exclude an occult ectopic . Patient denies any ongoing pain at this time. I have instructed her follow-up with women's clinic on Thursday for recheck of her hCG and consideration of repeat ultrasound. vitals are within normal limits. At this time will discharge with return precautions and follow-up recommendations. Verbal discharge instructions given a the bedside and opportunity for questions given. Medication warnings reviewed. Patient is in agreement with this plan and has verbalized understanding of return precautions and the need for primary care follow-up in the next 24-72 hours. - Vital Signs Vital signs: Temp Pulse Resp BP Pulse Ox 98.3 F 95 14 140/89 H 99 09/05/17 23:43 09/05/17 23:43 09/05/17 23:43 09/05/17 23:43 09/05/17 23:43 - Laboratory Result Diagrams: 09/05/17 19:42 Laboratory results interpreted by me: 09/05/17 09/05/17 19:42 19:42 WBC 11.0 H Plt Count 469 H Beta HCG, Quant 2187.50 H - Diagnostic Test Radiology reviewed: Reports reviewed Discharge - Discharge Clinical Impression: Abdominal pain during Qualifiers: Trimester: first trimester Qualified Code(s): O26.891 - Other specified related conditions, first trimester Condition: Good Disposition: HOME, SELF-CARE Additional Instructions: You need to return to the ED or the women's health clinic in 48 hours for a recheck of your hormone level. The ultrasound is unable to definitively determine the nature of your at this time given how early you are. Please return if you develop severe abdominal pain, bleeding that goes through more than 2 pads for more than 2 hours, pass out, or have any other symptoms that are concerning to you. Please follow-up closely with your OBGYN regarding todays visit. Referrals: GLENN ROSS MD [Primary Care Provider] - 09/07/17
--- NOTE | 2017-09-05 22:53 | RADIOLOGY REPORT (SQ) ---
EXAM DESCRIPTION: U/S OB TRANSVAGINAL W/O DOP CLINICAL HISTORY: 27 years, Female, abd pain, preg COMPARISON: None. TECHNIQUE: Transvaginal. LIMITATIONS: None. FINDINGS: No definite intrauterine identified. Possible intrauterine gestational sac with decidual reaction measures 0.5 cm in mean sac diameter which if viable with corresponding with a gestational age of five weeks and two days. Possible 1.6 cm subchorionic hemorrhage. 2.9 cm right ovary and 2.8 cm cervical length appear unremarkable. IMPRESSION: No definite intrauterine identified. Differential diagnosis includes at-risk early intrauterine gestational sac with 1.6 cm perigestational hemorrhage, ongoing gestational loss, or occult ectopic gestation. Consider 48-72 hour laboratory/sonographic surveillance. 2011 [employer]- All Rights Reserved
[2017-09-05 23:45] VITALS: BP 140/89
== END 2017-09-05 23:45 | disposition home or self-care (01) ==
LOC: ER 18:27
DX: O26.891 Other specified pregnancy related conditions, first trimester (principal); R10.2 Pelvic and perineal pain; Z3A.01 Less than 8 weeks gestation of pregnancy; Z88.6 Allergy status to analgesic agent; Z88.0 Allergy status to penicillin; Z91.040 Latex allergy status
CPT/HCPCS: 36415; 76817; 81001; 84702; 85025; 99284

== ENCOUNTER 2017-09-07 23:57 | Emergency (ER) | payer MEDICAID ==
[2017-09-08] MEDS ORDERED: ONDANSETRON 4 MG TAB.RAPDIS PO ONE (01:12)
[2017-09-08] MEDS ORDERED: NORMAL SALINE 1000 ML 1,000 ML IV ONE ×2 (01:21→04:10)
--- NOTE | 2017-09-08 01:24 | ER Document Report ---
ED Medical Screen (RME) - General Chief Complaint: Neck Pain < 24hrs old Stated Complaint: SHOULDER PAIN Time Seen by Provider: 09/08/17 01:16 Notes: 27-year-old female, 5 weeks gestation, chief complaint of waking up with severe pain in her left neck/shoulder area extending down into her left axilla and chest. States that she vomited twice and became very lightheaded. Denies fever or chills, headache, difficulty breathing. Denies history of the same. Denies any daily medications. Seen within the past 3 days here, instructed to get follow-up with [facility] yesterday but has not made to them yet. States vaginal bleeding and abdominal pain have stopped. TRAVEL OUTSIDE OF THE [place] IN LAST 30 DAYS: No - Related Data Allergies/Adverse Reactions: morphine [Morphine] Allergy (Severe, Verified 08/30/17 11:20) Difficulty breathing/itch diphenhydramine HCl [From Benadryl] Allergy (Intermediate, Verified 08/30/17 11: 20) RASH iodine [Iodine] Allergy (Intermediate, Verified 08/30/17 11:20) RASH latex [Latex] Allergy (Intermediate, Verified 08/30/17 11:20) RASH amoxicillin [Amoxicillin] Allergy (Unknown, Verified 08/30/17 11:20) Hives Penicillins Allergy (Unknown, Verified 08/30/17 11:20) Hives codeine Allergy (Verified 08/30/17 11:20) Hives Past Medical History - Social History Family history: Reviewed & Not Pertinent, Hypertension, Other - copd - Past Medical History Cardiac Medical History: Reports: Hx Hypertension - Not on medication Denies: Hx Heart Attack Pulmonary Medical History: Reports: Hx Asthma Denies: Hx Bronchitis, Hx COPD, Hx Pneumonia Neurological Medical History: Denies: Hx Seizures Renal/ Medical History: Reports: Hx Pelvic Inflammatory Disease. Denies: Hx Peritoneal Dialysis Musculoskeltal Medical History: Denies Hx Arthritis, Reports Hx Musculoskeletal Trauma Psychiatric Medical History: Reports: Hx Bipolar Disorder, Hx Depression, Hx Post Traumatic Stress Disorder Traumatic Medical History: Reports: Hx Fractures - Fractured ankle Past Surgical History: Reports: Hx Cholecystectomy, Hx Oral Surgery - wisdom tooth removal 07/2016, Hx Orthopedic Surgery - right ankle - Immunizations Immunizations up to date: Yes Hx Diphtheria, Pertussis, Tetanus Vaccination: Yes Physical Exam - Vital signs Vitals: Temp Pulse Resp BP Pulse Ox 98.9 F 147 H 22 H 145/93 H 100 09/08/17 00:55 09/08/17 00:55 09/08/17 00:55 09/08/17 00:55 09/08/17 00:55 - Respiratory Respiratory status: No respiratory distress. No: Respiratory distress Breath sounds: No: Decreased air movement, Wheezing - Cardiovascular Rhythm: Regular, Tachycardia Heart sounds: Normal auscultation, S1 appreciated, S2 appreciated Course - Re-evaluation Re-evalutation: Recheck patient's heart rate in triage, heart rate in the 150s. We will keep yellow triage status, placed on monitoring, discussed chest x-ray, because pain from the left chest/axilla up towards neck/shoulder will perform chest x-ray which showed. - Vital Signs Vital signs: Temp Pulse Resp BP Pulse Ox 98.9 F 147 H 22 H 145/93 H 100 09/08/17 00:55 09/08/17 00:55 09/08/17 00:55 09/08/17 00:55 09/08/17 00:55
[2017-09-08] MEDS ORDERED: ACETAMINOPHEN 325 MG TABLET PO ONE (02:17)
[2017-09-08] MEDS ORDERED: ONDANSETRON HCL INJ/PF 4 MG/2 ML SDV IV ONE (02:18)
--- NOTE | 2017-09-08 02:21 | ER Document Report ---
ED General - General Chief Complaint: Neck Pain < 24hrs old Stated Complaint: SHOULDER PAIN Time Seen by Provider: 09/08/17 01:16 TRAVEL OUTSIDE OF THE [place] IN LAST 30 DAYS: No - Related Data Allergies/Adverse Reactions: morphine [Morphine] Allergy (Severe, Verified 08/30/17 11:20) Difficulty breathing/itch diphenhydramine HCl [From Benadryl] Allergy (Intermediate, Verified 08/30/17 11: 20) RASH iodine [Iodine] Allergy (Intermediate, Verified 08/30/17 11:20) RASH latex [Latex] Allergy (Intermediate, Verified 08/30/17 11:20) RASH amoxicillin [Amoxicillin] Allergy (Unknown, Verified 08/30/17 11:20) Hives Penicillins Allergy (Unknown, Verified 08/30/17 11:20) Hives codeine Allergy (Verified 08/30/17 11:20) Hives Past Medical History - Social History Smoking Status: Never Smoker Family History: CAD, COPD, CVA, DM, Hyperlipidemia, Hypertension. denies: Arthritis, Malignancy, Thyroid Disfunction Patient has suicidal ideation: No Patient has homicidal ideation: No - Past Medical History Cardiac Medical History: Reports: Hx Hypertension - Not on medication Denies: Hx Heart Attack Pulmonary Medical History: Reports: Hx Asthma Denies: Hx Bronchitis, Hx COPD, Hx Pneumonia Neurological Medical History: Denies: Hx Seizures Renal/ Medical History: Reports: Hx Pelvic Inflammatory Disease. Denies: Hx Peritoneal Dialysis Musculoskeltal Medical History: Denies Hx Arthritis, Reports Hx Musculoskeletal Trauma Psychiatric Medical History: Reports: Hx Bipolar Disorder, Hx Depression, Hx Post Traumatic Stress Disorder Traumatic Medical History: Reports: Hx Fractures - Fractured ankle Past Surgical History: Reports: Hx Cholecystectomy, Hx Oral Surgery - wisdom tooth removal 07/2016, Hx Orthopedic Surgery - right ankle - Immunizations Immunizations up to date: Yes Hx Diphtheria, Pertussis, Tetanus Vaccination: Yes Physical Exam - Vital signs Vitals: Temp Pulse Resp BP Pulse Ox 98.9 F 147 H 22 H 145/93 H 100 09/08/17 00:55 09/08/17 00:55 09/08/17 00:55 09/08/17 00:55 09/08/17 00:55 Course - Re-evaluation Re-evalutation: 09/08/17 02:18 09/08/17 02:27 Presents with pain to left sided chest in the left back and left side of neck. Her abdomen is soft and nontender. I reviewed her previous records from when she was here 2 days ago. At that time she had an ultrasound which could not confirm an IUP. I therefore did an immediate FAST exam at bedside. FAST exam is negative for free fluid in the abdomen. I will send her for a official ultrasound as well. Chest x-ray is being obtained. Urinalysis and blood work will be obtained. Once this is all back we may have to consider PE as possible diagnosis and potentially do a CTA if there is no other source of her tachycardia and chest pain. Patient otherwise is clinically stable. - Vital Signs Vital signs: Temp Pulse Resp BP Pulse Ox 98.9 F 147 H 24 H 144/90 H 100 09/08/17 00:55 09/08/17 00:55 09/08/17 02:13 09/08/17 02:12 09/08/17 02:13 - Laboratory Result Diagrams: 09/08/17 02:30 09/08/17 02:30 Laboratory results interpreted by me: 09/08/17 09/08/17 02:30 02:30 WBC 12.4 H Hgb 11.8 L Hct 34.8 L Absolute Neutrophils 9.1 H Total Bilirubin < 0.1 L Beta HCG, Quant 4117.10 H Discharge - Discharge Clinical Impression: Shoulder pain, left Qualifiers: Chronicity: acute Qualified Code(s): M25.512 - Pain in left shoulder Qualifiers: Weeks of gestation: unspecified Qualified Code(s): Z34.90 - Encounter for supervision of normal , unspecified, unspecified trimester Condition: Good Disposition: HOME, SELF-CARE Instructions: Oral Narcotic Medication ([facility]) Additional Instructions: Please follow up with the OB physician in 2 days for reevaluation. Please return to the ER immediately if you have intractable pain, difficulty breathing , abdominal pain, heavy vaginal bleeding, or feel unwell. Please only take the Percoc Prescriptions: Oxycodone HCl/Acetaminophen [Percocet 5-325 mg Tablet] 1 tab PO Q4H PRN #8 tablet PRN Reason: Referrals: ENRIQUE DEY MD [ACTIVE STAFF] - 09/10/17
[2017-09-08 02:29] LABS: APPEARANCE,URINE CLEAR; BILIRUBIN,URINE NEGATIVE (NEGATIVE); COLOR,URINE STRAW; GLUCOSE, URINE NEGATIVE (NEGATIVE); KETONES,URINE NEGATIVE (NEGATIVE); LEUKOCYTE ESTERASE,URINE NEGATIVE (NEGATIVE); NITRITE,URINE NEGATIVE (NEGATIVE); PROTEIN,URINE NEGATIVE (NEGATIVE); URINE SPECIFIC GRAVITY 1.003; UROBILINOGEN,URINE NEGATIVE mg/dL (<2.0)
--- NOTE | 2017-09-08 02:44 | RADIOLOGY REPORT (SQ) ---
EXAM DESCRIPTION: CHEST SINGLE VIEW CLINICAL HISTORY: left chest/shoulder pain, tachycardia (shield) COMPARISON: 08/04/2017 FINDINGS: Single frontal view of the chest. The cardiomediastinal silhouette has normal size and contour. No consolidation, pneumothorax, or pleural effusion. No displaced rib fractures identified. Upper abdominal soft tissues are unremarkable. Leads overlie the chest. IMPRESSION: 1. No acute pulmonary process identified.
[2017-09-08 02:58] LABS: ABSOLUTE EOSINOPHILS # (AUTO) 0.2 10^3/uL (0.0-0.6); ABSOLUTE MONOCYTES (AUTO) 1.1 10^3/uL (0.1-1.4); ABSOLUTE NEUT (AUTO) 9.1 10^3/uL (1.7-8.2); BASOPHILS % (AUTO) 0.1 % (0-2); EOSINOPHILS % (AUTO) 1.6 % (0-6); HEMATOCRIT 34.8 % (36.0-47.0); HEMOGLOBIN 11.8 g/dL (12.0-15.5); LYMPHOCYTES % (AUTO) 16.1 % (13-45); MEAN CORPUSCULAR HGB CONC 33.9 g/dL (32.0-36.0); MEAN CORPUSCULAR VOLUME 85 fl (80-97); MONOCYTES % (AUTO) 8.8 % (3-13); PLATELET COUNT 432 10^3/uL (150-450); RED BLOOD COUNT 4.09 10^6/uL (3.72-5.28); RED CELL DISTRIBUTION WIDTH 12.9 % (11.5-14.0); SEGMENTED NEUTROPHILS % (AUTO) 73.4 % (42-78); TOTAL CELLS COUNTED % (AUTO) 100 %; WHITE BLOOD COUNT 12.4 10^3/uL (4.0-10.5)
[2017-09-08 03:08] LABS: ALANINE AMINOTRANSFERASE 33 U/L (9-52); ALBUMIN 3.9 g/dL (3.5-5.0); ALKALINE PHOSPHATASE 83 U/L (38-126); ANION GAP 11 (5-19); ASPARTATE AMINO TRANSFERASE 21 U/L (14-36); BLOOD UREA NITROGEN 7 mg/dL (7-20); CARBON DIOXIDE 24 mmol/L (22-30); CHLORIDE 107 mmol/L (98-107); GLUCOSE 87 mg/dL (75-110); MAGNESIUM 1.8 mg/dL (1.6-2.3); POTASSIUM 3.9 mmol/L (3.6-5.0); SODIUM 141.9 mmol/L (137-145); TOTAL PROTEIN 6.6 g/dL (6.3-8.2)
[2017-09-08 03:27] LABS: BILIRUBIN,TOTAL < 0.1 mg/dL (0.2-1.3)
[2017-09-08] MEDS ORDERED: HYDROMORPHONE HCL INJ/PF 2 MG/ML AMPULE IV ONE (03:37)
--- NOTE | 2017-09-08 03:49 | RADIOLOGY REPORT (SQ) ---
EXAM DESCRIPTION: U/S OB TRANSVAG W/DOPPLER CLINICAL HISTORY: 27 years Female, pain in COMPARISON: 09/05/2027 TECHNIQUE: Complete transvaginal obstetrical ultrasound. FINDINGS: Uterus measures 8.5 x 6.5 x 5.0 cm. Within the endometrial canal there is a gestational sac measuring 0.65 cm compatible with an estimated gestational age of 5 weeks, 3 days. Yolk sac is identified. No pole is identified on this study. Hypoechoic structure adjacent to the gestational sac measuring 1.6 cm in greatest dimension may represent a subchorionic hemorrhage. The ovaries are not identified. No free pelvic fluid. Cervical length of 1.9 cm. IMPRESSION: 1. Likely gestational sac within the endometrium with estimated gestational age of 5 weeks, 3 days. A yolk sac is identified on this study. No definite pole identified. Differential considerations include early normal , anembryonic , or threatened/in process miscarriage. Close continued clinical, laboratory, and sonographic follow-up recommended. 2. 1.6 cm likely subchorionic hemorrhage is not significantly changed.
--- NOTE | 2017-09-08 04:46 | RADIOLOGY REPORT (SQ) ---
EXAM DESCRIPTION: CTA of the chest per PE protocol with contrast. CLINICAL HISTORY: chest pain COMPARISON: None Available. TECHNIQUE: CTA of the chest obtained following the uncomplicated intravenous administration of 100 mL Isovue-370. 3-D/MIP reformatted images of the chest available for evaluation. FINDINGS: Chest: Mediastinal windows demonstrate an excellent contrast bolus. No pulmonary embolus identified. Visualized thyroid gland is unremarkable. Great vessels have normal anatomic configuration. No cardiomegaly, coronary artery atherosclerosis, or pericardial effusion. No abnormalities of the esophagus. Scattered mediastinal lymph nodes are not enlarged by CT criteria. Lung windows demonstrate no consolidation, pneumothorax, or pleural effusion. No abnormalities of the visualized trachea or airways. Limited images of the upper abdomen demonstrate no abnormalities of visualized liver and spleen. No destructive osseous lesions. DLP: 447.03 mGycm IMPRESSION: 1. No pulmonary embolus identified. This exam was performed according to our departmental dose-optimization program, which includes automated exposure control, adjustment of the mA and/or kV according to patient size and/or use of iterative reconstruction technique.
[2017-09-08 05:52] VITALS: BP 145/89
--- NOTE | 2017-09-08 13:12 | EKG REPORT ---
SEVERITY:- OTHERWISE NORMAL ECG - SINUS TACHYCARDIA : Confirmed by: Sunita Hudson MD 08-Sep-2017 13:11:49
== END 2017-09-08 05:52 | disposition home or self-care (01) ==
LOC: ER 23:57
DX: O99.89 Other specified diseases and conditions complicating pregnancy, childbirth and the puerperium (principal); M25.512 Pain in left shoulder; M54.2 Cervicalgia; O26.891 Other specified pregnancy related conditions, first trimester; R07.9 Chest pain, unspecified; R00.0 Tachycardia, unspecified; O16.1 Unspecified maternal hypertension, first trimester; O99.511 Diseases of the respiratory system complicating pregnancy, first trimester; J45.909 Unspecified asthma, uncomplicated; Z88.5 Allergy status to narcotic agent; Z88.8 Allergy status to other drugs, medicaments and biological substances; Z91.040 Latex allergy status; Z88.0 Allergy status to penicillin; Z82.49 Family history of ischemic heart disease and other diseases of the circulatory system; Z3A.00 Weeks of gestation of pregnancy not specified
CPT/HCPCS: 93005; 99284; 96361; 96374; 96375; 86900; 86901; 36415; 86850; 84702; 83735; 85025; 80053; 81001; 71045; 76817; 93976; 71275; 93010; J3490; J1170; J2405; J7030

== ENCOUNTER 2017-10-03 20:09 | Emergency (ER) | payer MEDICAID ==
--- NOTE | 2017-10-03 21:49 | ER Document Report ---
HPI - HPI Patient complains to provider of: sore throat Pain Level: 3 Context: Patient is a 8 week 27-year-old female presents emergency department with a chief complaint of sore throat, low-grade fever. States her son recently had strep. She denies any cough, sinus congestion, rhinitis, body aches, n/v/d/c she also admits to mid back pain. 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 Has not been using any heat packs. She denies any urinary/ stool incontinence, saddle anesthesia Lower extremity weakness - REPRODUCTIVE Reproductive: REPORTS: : Past Medical History - Social History Smoking Status: Never Smoker Family History: CAD, COPD, CVA, DM, Hyperlipidemia, Hypertension. denies: Arthritis, Malignancy, Thyroid Disfunction Patient has suicidal ideation: No Patient has homicidal ideation: No - Past Medical History Cardiac Medical History: Reports: Hx Hypertension - Not on medication Denies: Hx Heart Attack Pulmonary Medical History: Reports: Hx Asthma Denies: Hx Bronchitis, Hx COPD, Hx Pneumonia Neurological Medical History: Denies: Hx Seizures Renal/ Medical History: Reports: Hx Pelvic Inflammatory Disease. Denies: Hx Peritoneal Dialysis Musculoskeltal Medical History: Denies Hx Arthritis, Reports Hx Musculoskeletal Trauma Psychiatric Medical History: Reports: Hx Bipolar Disorder, Hx Depression, Hx Post Traumatic Stress Disorder Traumatic Medical History: Reports: Hx Fractures - Fractured ankle Past Surgical History: Reports: Hx Cholecystectomy, Hx Oral Surgery - wisdom tooth removal 07/2016, Hx Orthopedic Surgery - right ankle - Immunizations Immunizations up to date: Yes Hx Diphtheria, Pertussis, Tetanus Vaccination: Yes Vertical Provider Document - CONSTITUTIONAL Agree With Documented VS: Yes Notes: PHYSICAL EXAM GENERAL: Alert, interacts well. HEENT: NCAT, pale conjunctiva, extraocular movements intact, pupils PERRL. external ear normal, no evidence of external auditory canal tenderness, blood/ drainage, cerumen impaction, TM intact without evidence of effusion, bulging, injection, MMM, Uvula midline. Airway patent. Pharyngeal erythema without any evidence of tonsillar exudates no evidence of tonsillar enlargement, peritonsillar abscess, retropharyngeal abscess. LUNGS: Clear to auscultation bilaterally, no wheezes, rales, or rhonchi. No respiratory distress. HEART: Regular rate and rhythm. No murmurs, gallops, or rubs. ABDOMEN: Soft, nondistended, nontender. No guarding, rebound, or rigidity.. Bowel sounds present in all 4 quadrants. Back: Back: Tenderness palpation of the thoracic paralumbar musculature with pain reproducible palpation EXTREMITIES: Moves all 4 extremities spontaneously. No edema, radial and dorsalis pedis pulses 2/4 bilaterally. No cyanosis. NEUROLOGICAL: Alert and oriented x4. Normal speech. PSYCH: Normal affect, normal mood. - INFECTION CONTROL TRAVEL OUTSIDE OF THE [place] IN LAST 30 DAYS: No - RESPIRATORY O2 Sat by Pulse Oximetry: 100 Course - Re-evaluation Re-evalutation: 10/03/17 21:47 Presentation of several days of sore throat in an otherwise well-appearing patient. History and exam are not consistent with a retropharyngeal abscess or peritonsillar abscess. Airway is patent. No difficulty handling oral secretions. Vitals within normal limits. Patient has been treated with p.o. clindamycin. Regarding her back pain. No evidence of acute trauma. Pain reproducible palpation consistent with a muscle strain. Discussed with her to continue taking Tylenol and can utilize heat packs. At this time will discharge with return precautions and follow-up recommendations. Verbal discharge instructions given a the bedside and opportunity for questions given. Medication warnings reviewed. Patient is in agreement with this plan and has verbalized understanding of return precautions and the need for primary care follow-up in the next week. - Vital Signs Vital signs: Temp Pulse Resp BP Pulse Ox 99.1 F 96 16 156/83 H 100 10/03/17 20:30 10/03/17 20:30 10/03/17 20:30 10/03/17 20:30 10/03/17 20:30 Discharge - Discharge Clinical Impression: Pharyngitis Qualifiers: Pharyngitis/tonsillitis etiology: unspecified etiology Qualified Code(s): J02.9 - Acute pharyngitis, unspecified Condition: Good Disposition: HOME, SELF-CARE Instructions: Strep Throat ([facility]) Prescriptions: Clindamycin HCl 300 mg PO TID 10 Days capsule Forms: Elevated Blood Pressure Referrals: [facility] [Provider Group] - 10/05/17
[2017-10-03] MEDS ORDERED: CLINDAMYCIN HCL 150 MG CAPSULE PO ONE (21:56)
[2017-10-03] MEDS ORDERED: ACETAMINOPHEN 325 MG TABLET PO ONE (21:56)
[2017-10-03 22:10] VITALS: BP 131/78
== END 2017-10-03 22:09 | disposition home or self-care (01) ==
LOC: ER 20:09
DX: J02.9 Acute pharyngitis, unspecified (principal); R50.9 Fever, unspecified; M54.89 Other dorsalgia
CPT/HCPCS: 99283; 87070; 87880; J3490 ×2

== ENCOUNTER 2017-10-10 23:01 | Emergency (ER) | payer MEDICAID ==
[2017-10-11] MEDS ORDERED: ACETAMINOPHEN 325 MG TABLET PO ONE (00:46)
--- NOTE | 2017-10-11 00:53 | ER Document Report ---
ED GI/ - General Chief Complaint: Lower Abdominal Pain Stated Complaint: VAGINAL BLEEDING Time Seen by Provider: 10/11/17 00:39 Notes: Patient is a 27-year-old female, at 9 weeks gestation by first trimester ultrasound, the comes emergency department for chief complaint of vaginal bleeding cramping for the past 2-3 days. She states she is having some cramping now, light spotting. No clot passage, no lightheadedness, no nausea vomiting, no fever chills, no vaginal discharge otherwise. She states she is not currently bleeding. She is on vitamins. She follows with [facility] in [place]. TRAVEL OUTSIDE OF THE [place] IN LAST 30 DAYS: No - Related Data Allergies/Adverse Reactions: morphine [Morphine] Allergy (Severe, Verified 10/11/17 04:42) Difficulty breathing/itch diphenhydramine HCl [From Benadryl] Allergy (Intermediate, Verified 10/11/17 04: 42) RASH iodine [Iodine] Allergy (Intermediate, Verified 10/11/17 04:42) RASH latex [Latex] Allergy (Intermediate, Verified 10/11/17 04:42) RASH amoxicillin [Amoxicillin] Allergy (Unknown, Verified 10/11/17 04:42) Hives Penicillins Allergy (Unknown, Verified 10/11/17 04:42) Hives codeine Allergy (Verified 10/11/17 04:42) Hives Past Medical History - General Information source: Patient - Social History Smoking Status: Never Smoker Frequency of alcohol use: None Lives with: Spouse/Significant other Family History: CAD, COPD, CVA, DM, Hyperlipidemia, Hypertension. denies: Arthritis, Malignancy, Thyroid Disfunction - Past Medical History Cardiac Medical History: Reports: Hx Hypertension - Not on medication Denies: Hx Heart Attack Pulmonary Medical History: Reports: Hx Asthma Denies: Hx Bronchitis, Hx COPD, Hx Pneumonia Neurological Medical History: Denies: Hx Seizures Renal/ Medical History: Reports: Hx Pelvic Inflammatory Disease. Denies: Hx Peritoneal Dialysis Musculoskeltal Medical History: Denies Hx Arthritis, Reports Hx Musculoskeletal Trauma Psychiatric Medical History: Reports: Hx Bipolar Disorder, Hx Depression, Hx Post Traumatic Stress Disorder Traumatic Medical History: Reports: Hx Fractures - Fractured ankle Past Surgical History: Reports: Hx Cholecystectomy, Hx Oral Surgery - wisdom tooth removal 07/2016, Hx Orthopedic Surgery - right ankle - Immunizations Immunizations up to date: Yes Hx Diphtheria, Pertussis, Tetanus Vaccination: Yes Review of Systems - Review of Systems Constitutional: No symptoms reported EENT: No symptoms reported Cardiovascular: No symptoms reported Respiratory: No symptoms reported Gastrointestinal: See HPI Genitourinary: See HPI Female Genitourinary: See HPI Musculoskeletal: No symptoms reported Skin: No symptoms reported Hematologic/Lymphatic: No symptoms reported Neurological/Psychological: No symptoms reported Physical Exam - Vital signs Vitals: Temp Pulse Resp BP Pulse Ox 98.2 F 98 18 146/85 H 100 10/10/17 23:07 10/10/17 23:07 10/10/17 23:07 10/10/17 23:07 10/10/17 23:07 Interpretation: Normal - General General appearance: Appears well, Alert - HEENT Head: Normocephalic, Atraumatic Eyes: Normal Pupils: PERRL - Respiratory Respiratory status: No respiratory distress Chest status: Nontender Breath sounds: Normal Chest palpation: Normal - Cardiovascular Rhythm: Regular Heart sounds: Normal auscultation Murmur: No - Abdominal Inspection: Normal Distension: No distension Bowel sounds: Normal Tenderness: Nontender. No: Tender, Guarding Organomegaly: No organomegaly - Back Back: Normal, Nontender. No: Tender - Extremities General upper extremity: Normal inspection, Nontender, Normal strength, Normal temperature General lower extremity: Normal inspection, Nontender, Normal strength, Normal temperature - Neurological Neuro grossly intact: Yes Cognition: Normal Orientation: AAOx4 Celi Coma Scale Eye Opening: Spontaneous [place] Coma Scale Verbal: Oriented [place] Coma Scale Motor: Obeys Commands Celi Coma Scale Total: 15 Speech: Normal Motor strength normal: LUE, RUE, LLE, RLE Sensory: Normal - Psychological Associated symptoms: Normal affect, Normal mood - Skin Skin Temperature: Warm Skin Moisture: Dry Skin Color: Normal Course - Re-evaluation Re-evalutation: Patient intermittently having some cramping although this is not consistent. Soft abdomen on my exam. Unremarkable vital signs. Well-appearing patient. Not currently bleeding. CBC shows mild leukocytosis, nonspecific based on patient's presentation and exam. Urinalysis nonspecific. HCG is elevated. Patient's blood type is O+. Ultrasound consistent with suspected demise, measuring around 6 weeks with no heart tones. Subchorionic hemorrhage. Discussed results with patient at bedside, when I evaluated her she is having some additional cramping and requests pain medication but she is in no distress. She states she wants to follow-up with her [facility] tomorrow down in [place]. Patient has had a miscarriage and dilation and curettage before, states she is familiar with the process. Discussed return precautions, provided with pain medication, patient and significant other state understanding and agreement. - Vital Signs Vital signs: Temp Pulse Resp BP Pulse Ox 98.2 F 81 18 109/57 L 99 10/10/17 23:07 10/11/17 03:12 10/11/17 03:12 10/11/17 03:12 10/11/17 03:12 - Laboratory Result Diagrams: 10/11/17 00:50 Laboratory results interpreted by me: 10/11/17 10/11/17 10/11/17 00:50 00:50 00:50 WBC 13.3 H Hct 35.9 L Absolute Neutrophils 9.2 H Beta HCG, Quant 75099.00 H Urine Blood SMALL H Discharge - Discharge Clinical Impression: Vaginal bleeding, Pelvic cramping Condition: Stable Disposition: HOME, SELF-CARE Additional Instructions: Your workup is consistent with demise and impending miscarriage. Take the pain medication if needed, call and follow-up with your [facility] tomorrow , return for any concerning symptoms including severe bleeding or pain, passing out, or any other concerning symptoms. See additional instructions below. Miscarriage Impending You have been evaluated for a possible miscarriage. At this time, it appears that the fetus has stopped growing. A miscarriage occurs when the fetus is abnormal. There is no medicine or treatment to prevent it. If bleeding is not severe, and if your pain can be controlled with medicine, you could complete the miscarriage at home. If that's not practical, or if the miscarriage doesn't progress spontaneously, OBGYN may arrange for a D& C procedure. You should rest in bed. Do not douche or have sex for at least a week, or until OK'd by the doctor. If you believe you've passed the fetus, collect it in a zip-lock plastic bag. Be sure to follow up with your doctor. Call the doctor or return for re- examination if there is an increase in bleeding or cramping, extreme weakness, fainting, fever, or passage of tissue. Prescriptions: Oxycodone HCl/Acetaminophen [Percocet 5-325 mg Tablet] 1 - 2 tab PO Q4H PRN #20 tablet PRN Reason:
--- NOTE | 2017-10-11 00:57 | RADIOLOGY REPORT (SQ) ---
EXAM DESCRIPTION: U/S OB TRANSVAGINAL W/O DOP CLINICAL HISTORY: 27 years Female, 8 weeks , vag bleeding and pain COMPARISON: 09/08/2017 TECHNIQUE: Complete first trimester obstetrical ultrasound with transvaginal imaging. FINDINGS: Uterus measures 10.5 x 6.7 x 7.3 cm. A gestational sac is identified. Possible pole identified measuring 0.91 cm. This would be compatible with an estimated gestational age of 6 weeks, 6 days. No heart rate identified. Yolk sac is identified measuring 0.4 cm. A gestational sac has a somewhat abnormal with irregular contours. The cervix is 2.6 cm in length and closed. Upper, fluid again identified adjacent to the gestational sac. This may represent a subchorionic hemorrhage. The ovaries are not identified bilaterally. No free pelvic fluid. IMPRESSION: 1. Within the endometrium there is an irregularly-shaped gestational sac with a possible pole which would have and estimated gestational age of 6 weeks, 5 days. No heart tones identified. Small adjacent subchorionic hemorrhage. Given lack of appropriate growth and heart rate from comparison study findings are highly suggestive of demise. Close continued clinical, laboratory, and sonographic follow-up recommended.
[2017-10-11 01:05] LABS: ABSOLUTE EOSINOPHILS # (AUTO) 0.3 10^3/uL (0.0-0.6); ABSOLUTE LYMPHOCYTES (AUTO) 2.8 10^3/uL (0.5-4.7); ABSOLUTE NEUT (AUTO) 9.2 10^3/uL (1.7-8.2); BASOPHILS % (AUTO) 0.4 % (0-2); EOSINOPHILS % (AUTO) 2.1 % (0-6); HEMATOCRIT 35.9 % (36.0-47.0); HEMOGLOBIN 12.3 g/dL (12.0-15.5); LYMPHOCYTES % (AUTO) 20.7 % (13-45); MEAN CORPUSCULAR HEMOGLOBIN 29.6 pg (27.0-33.4); MEAN CORPUSCULAR HGB CONC 34.2 g/dL (32.0-36.0); MEAN CORPUSCULAR VOLUME 87 fl (80-97); MONOCYTES % (AUTO) 7.7 % (3-13); PLATELET COUNT 410 10^3/uL (150-450); RED BLOOD COUNT 4.15 10^6/uL (3.72-5.28); RED CELL DISTRIBUTION WIDTH 13.2 % (11.5-14.0); SEGMENTED NEUTROPHILS % (AUTO) 69.1 % (42-78); TOTAL CELLS COUNTED % (AUTO) 100 %; WHITE BLOOD COUNT 13.3 10^3/uL (4.0-10.5)
[2017-10-11 01:11] LABS: APPEARANCE,URINE CLEAR; BILIRUBIN,URINE NEGATIVE (NEGATIVE); COLOR,URINE COLORLESS; GLUCOSE, URINE NEGATIVE (NEGATIVE); KETONES,URINE NEGATIVE (NEGATIVE); LEUKOCYTE ESTERASE,URINE NEGATIVE (NEGATIVE); NITRITE,URINE NEGATIVE (NEGATIVE); PROTEIN,URINE NEGATIVE (NEGATIVE); URINE SPECIFIC GRAVITY 1.002; UROBILINOGEN,URINE NEGATIVE mg/dL (<2.0)
[2017-10-11] MEDS ORDERED: HYDROMORPHONE HCL INJ/PF 2 MG/ML AMPULE IM ONE (02:39)
[2017-10-11] MEDS ORDERED: ONDANSETRON 4 MG TAB.RAPDIS PO ONE (02:39)
[2017-10-11 03:13] VITALS: BP 109/57
== END 2017-10-11 03:12 | disposition home or self-care (01) ==
LOC: ER 23:01
DX: O20.9 Hemorrhage in early pregnancy, unspecified (principal); R10.2 Pelvic and perineal pain; O26.891 Other specified pregnancy related conditions, first trimester; O99.511 Diseases of the respiratory system complicating pregnancy, first trimester; J45.909 Unspecified asthma, uncomplicated; O16.1 Unspecified maternal hypertension, first trimester; Z3A.09 9 weeks gestation of pregnancy; Z88.5 Allergy status to narcotic agent; Z88.8 Allergy status to other drugs, medicaments and biological substances; Z91.040 Latex allergy status; Z88.0 Allergy status to penicillin
CPT/HCPCS: 99284; 96372; 36415; 84702; 85025; 81001; 76817; J3490; S0119; J1170

== ENCOUNTER 2017-10-11 04:38 | Emergency (ER) | payer MEDICAID ==
[2017-10-11] MEDS ORDERED: HYDROMORPHONE HCL INJ/PF 2 MG/ML AMPULE IV ONE ×2 (04:57→07:41)
[2017-10-11] MEDS ORDERED: ONDANSETRON HCL INJ/PF 4 MG/2 ML SDV IV ONE (04:57)
--- NOTE | 2017-10-11 05:00 | ER Document Report ---
ED Medical Screen (RME) - General Chief Complaint: Abdominal Pain Stated Complaint: ABDOMINAL PAIN Time Seen by Provider: 10/11/17 04:57 Notes: Patient is a 27-year-old female, , that was seen earlier tonight and told that she was starting to have a miscarriage. Patient states that she was doing well but after she went home she started having very sharp contractions, she states she dropped to the floor, she states the pain was too bad and she decided to come back in. She denies vomiting, passing out, heavy bleeding. TRAVEL OUTSIDE OF THE [place] IN LAST 30 DAYS: No - Related Data Allergies/Adverse Reactions: morphine [Morphine] Allergy (Severe, Verified 10/11/17 04:42) Difficulty breathing/itch diphenhydramine HCl [From Benadryl] Allergy (Intermediate, Verified 10/11/17 04: 42) RASH iodine [Iodine] Allergy (Intermediate, Verified 10/11/17 04:42) RASH latex [Latex] Allergy (Intermediate, Verified 10/11/17 04:42) RASH amoxicillin [Amoxicillin] Allergy (Unknown, Verified 10/11/17 04:42) Hives Penicillins Allergy (Unknown, Verified 10/11/17 04:42) Hives codeine Allergy (Verified 10/11/17 04:42) Hives Past Medical History - Social History Family history: Reviewed & Not Pertinent, Hypertension, Other - copd - Past Medical History Cardiac Medical History: Reports: Hx Hypertension - Not on medication Denies: Hx Heart Attack Pulmonary Medical History: Reports: Hx Asthma Denies: Hx Bronchitis, Hx COPD, Hx Pneumonia Neurological Medical History: Denies: Hx Seizures Renal/ Medical History: Reports: Hx Pelvic Inflammatory Disease. Denies: Hx Peritoneal Dialysis Musculoskeltal Medical History: Denies Hx Arthritis, Reports Hx Musculoskeletal Trauma Psychiatric Medical History: Reports: Hx Bipolar Disorder, Hx Depression, Hx Post Traumatic Stress Disorder Traumatic Medical History: Reports: Hx Fractures - Fractured ankle Past Surgical History: Reports: Hx Cholecystectomy, Hx Oral Surgery - wisdom tooth removal 07/2016, Hx Orthopedic Surgery - right ankle - Immunizations Immunizations up to date: Yes Hx Diphtheria, Pertussis, Tetanus Vaccination: Yes Physical Exam - Vital signs Vitals: Temp Pulse Resp BP Pulse Ox 97.8 F 126 H 16 156/97 H 96 10/11/17 04:42 10/11/17 04:42 10/11/17 04:42 10/11/17 04:42 10/11/17 04:42 - Cardiovascular Rhythm: Regular, Tachycardia Heart sounds: Normal auscultation, S1 appreciated, S2 appreciated - Abdominal Tenderness: Tender - Generalized tenderness Course - Vital Signs Vital signs: Temp Pulse Resp BP Pulse Ox 97.8 F 126 H 16 156/97 H 96 10/11/17 04:42 10/11/17 04:42 10/11/17 04:42 10/11/17 04:42 10/11/17 04:42
[2017-10-11] MEDS ORDERED: KETOROLAC TROMETHAMINE INJ/PF 30 MG/1 ML SDV IV ONE (05:06)
[2017-10-11] MEDS ORDERED: NORMAL SALINE 1000 ML 1,000 ML IV PRN (05:09)
[2017-10-11 05:46] LABS: ABSOLUTE EOSINOPHILS # (AUTO) 0.2 10^3/uL (0.0-0.6); ABSOLUTE LYMPHOCYTES (AUTO) 2.6 10^3/uL (0.5-4.7); ABSOLUTE NEUT (AUTO) 9.3 10^3/uL (1.7-8.2); BASOPHILS % (AUTO) 0.1 % (0-2); EOSINOPHILS % (AUTO) 1.4 % (0-6); HEMATOCRIT 39.1 % (36.0-47.0); HEMOGLOBIN 13.3 g/dL (12.0-15.5); LYMPHOCYTES % (AUTO) 20.2 % (13-45); MEAN CORPUSCULAR HEMOGLOBIN 29.2 pg (27.0-33.4); MEAN CORPUSCULAR VOLUME 86 fl (80-97); MONOCYTES % (AUTO) 7.6 % (3-13); PLATELET COUNT 431 10^3/uL (150-450); RED BLOOD COUNT 4.55 10^6/uL (3.72-5.28); RED CELL DISTRIBUTION WIDTH 13.4 % (11.5-14.0); SEGMENTED NEUTROPHILS % (AUTO) 70.7 % (42-78); TOTAL CELLS COUNTED % (AUTO) 100 %; WHITE BLOOD COUNT 13.1 10^3/uL (4.0-10.5)
[2017-10-11 06:10] LABS: ALANINE AMINOTRANSFERASE 119 U/L (9-52); ALBUMIN 4.5 g/dL (3.5-5.0); ALKALINE PHOSPHATASE 92 U/L (38-126); ANION GAP 15 (5-19); ASPARTATE AMINO TRANSFERASE 154 U/L (14-36); BILIRUBIN,DIRECT 0.5 mg/dL (0.0-0.4); BILIRUBIN,TOTAL 0.5 mg/dL (0.2-1.3); BLOOD UREA NITROGEN 6 mg/dL (7-20); CALCIUM 9.1 mg/dL (8.4-10.2); CARBON DIOXIDE 26 mmol/L (22-30); CHLORIDE 101 mmol/L (98-107); GLUCOSE 97 mg/dL (75-110); POTASSIUM 3.9 mmol/L (3.6-5.0); SODIUM 142.1 mmol/L (137-145); TOTAL PROTEIN 7.5 g/dL (6.3-8.2)
--- NOTE | 2017-10-11 06:41 | ER Document Report ---
ED GI/ - General Chief Complaint: Abdominal Pain Stated Complaint: ABDOMINAL PAIN Time Seen by Provider: 10/11/17 04:57 Notes: 27 years old female who was seen early last night, returns with increased abdominal pain and vaginal bleeding. She was diagnosed as miscarriage after 8 weeks of . The last ultrasound shows normal heart sounds. She is having diffuse abdominal pain. She was given Dilaudid prior to me seeing her. And currently comfortable. TRAVEL OUTSIDE OF THE [place] IN LAST 30 DAYS: No - Related Data Allergies/Adverse Reactions: morphine [Morphine] Allergy (Severe, Verified 10/11/17 04:42) Difficulty breathing/itch diphenhydramine HCl [From Benadryl] Allergy (Intermediate, Verified 10/11/17 04: 42) RASH iodine [Iodine] Allergy (Intermediate, Verified 10/11/17 04:42) RASH latex [Latex] Allergy (Intermediate, Verified 10/11/17 04:42) RASH amoxicillin [Amoxicillin] Allergy (Unknown, Verified 10/11/17 04:42) Hives Penicillins Allergy (Unknown, Verified 10/11/17 04:42) Hives codeine Allergy (Verified 10/11/17 04:42) Hives Past Medical History - Social History Smoking Status: Current Every Day Smoker Frequency of alcohol use: None Family History: CAD, COPD, CVA, DM, Hyperlipidemia, Hypertension. denies: Arthritis, Malignancy, Thyroid Disfunction Patient has suicidal ideation: No Patient has homicidal ideation: No - Past Medical History Cardiac Medical History: Reports: Hx Hypertension - Not on medication Denies: Hx Heart Attack Pulmonary Medical History: Reports: Hx Asthma Denies: Hx Bronchitis, Hx COPD, Hx Pneumonia Neurological Medical History: Denies: Hx Seizures Renal/ Medical History: Reports: Hx Pelvic Inflammatory Disease. Denies: Hx Peritoneal Dialysis Musculoskeltal Medical History: Denies Hx Arthritis, Reports Hx Musculoskeletal Trauma Psychiatric Medical History: Reports: Hx Bipolar Disorder, Hx Depression, Hx Post Traumatic Stress Disorder Traumatic Medical History: Reports: Hx Fractures - Fractured ankle Past Surgical History: Reports: Hx Cholecystectomy, Hx Oral Surgery - wisdom tooth removal 07/2016, Hx Orthopedic Surgery - right ankle - Immunizations Immunizations up to date: Yes Hx Diphtheria, Pertussis, Tetanus Vaccination: Yes Review of Systems - Review of Systems Constitutional: denies: No symptoms reported, See HPI, Chills, Diaphoresis, Fever, Malaise, Weakness, Other, Weight gain, Weight loss, Recent illness EENT: denies: No symptoms reported, See HPI, Eye pain, Eye discharge, Blurred vision, Tearing, Double vision, Ear pain, Ear discharge, Nose pain, Nose congestion, Nose discharge, Sinus pressure, Sinus discharge, Throat pain, Difficulty swallowing, Throat swelling, Mouth pain, Mouth swelling, Dental problem, Vertigo, Other Cardiovascular: denies: No symptoms reported, See HPI, Chest pain, Palpitations , Heart racing, Orthopnea, Dyspnea, Syncope, Dizziness, Lightheaded, Edema, Other, Paroxysmal Nocturnal Dysp Gastrointestinal: denies: No symptoms reported, See HPI, Abdomen distended, Abdominal pain, Diarrhea, Nausea, Vomiting, Constipation, Blood streaked bowels , Poor appetite, Poor fluid intake, Blood in vomit, Black stools, Rectal bleeding, Last bowel movement, Fecal incontinence, Other Genitourinary: denies: No symptoms reported, See HPI, Burning, Dysuria, Discharge, Frequency, Flank pain, Hematuria, Incontinence, Pain, Urgency, Retention, Other Musculoskeletal: denies: No symptoms reported, See HPI, Back pain, Gout, Joint pain, Joint swelling, Muscle pain, Muscle stiffness, Neck pain, Deformity, Leg swelling, Ankle swelling, Other Hematologic/Lymphatic: denies: No symptoms reported, See HPI, Anemia, Blood clots, Easy bleeding, Easy bruising, Enlarged lymph nodes, Swollen glands, Other Neurological/Psychological: denies: No symptoms reported, See HPI, Confusion, Dementia, Depression, Hallucinations, Anxiety, Homicidal ideation, Sensory change, Weakness, Gait changes, Loss of power, Paralysis, Seizure, Lost consciousness, Headaches, Speech impairment, Numbness, Suicidal ideation, Tingling, Tremor, Other Physical Exam - Vital signs Vitals: Temp Pulse Resp BP Pulse Ox 97.8 F 126 H 16 156/97 H 96 10/11/17 04:42 10/11/17 04:42 10/11/17 04:42 10/11/17 04:42 10/11/17 04:42 PHYSICAL EXAMINATION: GENERAL: Seems to be in pain and discomfort HEAD: Atraumatic, normocephalic. EYES: Pupils equal round and reactive to light, extraocular movements intact, conjunctiva are normal. ENT: Nares patent, oropharynx clear without exudates. Moist mucous membranes. NECK: Normal range of motion, supple without lymphadenopathy LUNGS: Breath sounds clear to auscultation bilaterally and equal. No wheezes rales or rhonchi. HEART: Regular rate and rhythm without murmurs ABDOMEN: Soft, positive bowel sounds diffuse abdominal tenderness. Female : No active bleeding per vagina. Musculoskeletal: Normal range of motion, no pitting or edema. No cyanosis. NEUROLOGICAL: Cranial nerves grossly intact. Normal speech, normal gait. Normal sensory, motor exams PSYCH: Normal mood, normal affect. SKIN: Warm, Dry, normal turgor, no rashes or lesions noted. Course - Vital Signs Vital signs: Temp Pulse Resp BP Pulse Ox 97.8 F 126 H 13 128/95 H 97 10/11/17 04:42 10/11/17 04:42 10/11/17 11:00 10/11/17 09:00 10/11/17 11:00 - Laboratory Result Diagrams: 10/11/17 05:28 10/11/17 05:28 Laboratory results interpreted by me: 10/11/17 10/11/17 10/11/17 05:28 05:28 05:28 WBC 13.1 H Absolute Neutrophils 9.3 H BUN 6 L Direct Bilirubin 0.5 H AST 154 H ALT 119 H Beta HCG, Quant 45687.00 H Discharge - Discharge Clinical Impression: Abdominal pain affecting , Threatened Condition: Fair Disposition: HOME, SELF-CARE Instructions: Oral Narcotic Medication ([facility]), Threatened Abortions ( Patients) Prescriptions: Oxycodone HCl/Acetaminophen [Percocet 5-325 mg Tablet] 1 - 2 tab PO Q4H PRN #15 tablet PRN Reason:
[2017-10-11 11:47] VITALS: BP 122/82
== END 2017-10-11 11:52 | disposition home or self-care (01) ==
LOC: ER 04:38
DX: O20.0 Threatened abortion (principal); R10.9 Unspecified abdominal pain; F17.200 Nicotine dependence, unspecified, uncomplicated; Z3A.00 Weeks of gestation of pregnancy not specified
CPT/HCPCS: 99284; 96361; 96374; 96375; 86900; 86901; 36415; 84702; 85025; 80053; J1885; J1170; J2405; J7030

== ENCOUNTER 2017-10-13 21:42 | Emergency (ER) | payer MEDICAID ==
[2017-10-13] MEDS ORDERED: HYDROMORPHONE HCL INJ/PF 2 MG/ML AMPULE IV ONE ×2 (22:37→23:22)
[2017-10-13] MEDS ORDERED: ONDANSETRON HCL INJ/PF 4 MG/2 ML SDV IV ONE (22:37)
[2017-10-13] MEDS ORDERED: ONDANSETRON HCL INJ/PF 4 MG/2 ML SDV ONE (22:39)
[2017-10-13] MEDS ORDERED: HYDROMORPHONE HCL INJ/PF 2 MG/ML AMPULE ONE (22:39)
--- NOTE | 2017-10-13 22:42 | ER Document Report ---
ED General - General Chief Complaint: Vag Bleeding, +preg <12wks Stated Complaint: VAGINAL BLEEDING Time Seen by Provider: 10/13/17 22:24 Mode of Arrival: Ambulatory Information source: Patient TRAVEL OUTSIDE OF THE [place] IN LAST 30 DAYS: No - HPI Notes: Patient is a 27-year-old who is 9 weeks 2 days , blood type O+, has [employer] in [place] had a ultrasound on 10/10/17 which showed a uterine 6 weeks 5 days in size with a subchorionic hemorrhage and no cardiac activity with findings consistent with intrauterine demise. The patient has a follow-up D&C scheduled for tomorrow in [place] with her OB, but at 1999 developed severe bleeding with 4 pads and a diaper of blood she soaked in 45 minutes. The patient reports crampy midline lower abdominal pain. The patient denies any chest pain or difficulty breathing. The patient has a history of mild hypertension. Notable that the patient has been taking a baby aspirin to prevent preeclampsia which was a complication of her previous . Patient has had a prior miscarriage. - Related Data Allergies/Adverse Reactions: morphine [Morphine] Allergy (Severe, Verified 10/11/17 04:42) Difficulty breathing/itch diphenhydramine HCl [From Benadryl] Allergy (Intermediate, Verified 10/11/17 04: 42) RASH iodine [Iodine] Allergy (Intermediate, Verified 10/11/17 04:42) RASH latex [Latex] Allergy (Intermediate, Verified 10/11/17 04:42) RASH amoxicillin [Amoxicillin] Allergy (Unknown, Verified 10/11/17 04:42) Hives Penicillins Allergy (Unknown, Verified 10/11/17 04:42) Hives codeine Allergy (Verified 10/11/17 04:42) Hives Past Medical History - General Information source: Patient - Social History Smoking Status: Never Smoker Frequency of alcohol use: None Drug Abuse: None Lives with: Family Family History: CAD, COPD, CVA, DM, Hyperlipidemia, Hypertension. denies: Arthritis, Malignancy, Thyroid Disfunction - Past Medical History Cardiac Medical History: Reports: Hx Hypertension - Not on medication Denies: Hx Heart Attack Pulmonary Medical History: Reports: Hx Asthma Denies: Hx Bronchitis, Hx COPD, Hx Pneumonia Neurological Medical History: Denies: Hx Seizures Renal/ Medical History: Reports: Hx Pelvic Inflammatory Disease. Denies: Hx Peritoneal Dialysis Musculoskeltal Medical History: Denies Hx Arthritis, Reports Hx Musculoskeletal Trauma Psychiatric Medical History: Reports: Hx Bipolar Disorder, Hx Depression, Hx Post Traumatic Stress Disorder Traumatic Medical History: Reports: Hx Fractures - Fractured ankle Past Surgical History: Reports: Hx Cholecystectomy, Hx Oral Surgery - wisdom tooth removal 07/2016, Hx Orthopedic Surgery - right ankle - Immunizations Immunizations up to date: Yes Hx Diphtheria, Pertussis, Tetanus Vaccination: Yes Review of Systems - Review of Systems Notes: REVIEW OF SYSTEMS: CONSTITUTIONAL : Denies fever, chills, or sweats. Denies recent illness. EENT: Denies eye, ear, throat, or mouth pain or symptoms. Denies nasal or sinus congestion or discharge. Denies throat, tongue, or mouth swelling or difficulty swallowing. CARDIOVASCULAR: Denies chest pain. Denies palpitations or racing or irregular heart beat. Denies ankle edema. RESPIRATORY: Denies cough, cold, or chest congestion. Denies shortness of breath, difficulty breathing, or wheezing. GASTROINTESTINAL: Denies abdominal distention. Denies nausea, vomiting, or diarrhea. Denies blood in vomitus, stools, or per rectum. Denies black, tarry stools. Denies constipation. GENITOURINARY: Denies difficulty urinating, painful urination, burning, frequency, blood in urine, or discharge. FEMALE GENITOURINARY: Denies vaginal discharge or odor. MUSCULOSKELETAL: Denies back or neck pain or stiffness. Denies joint pain or swelling. SKIN: Denies rash, lesions or sores. HEMATOLOGIC : Denies easy bruising or bleeding. LYMPHATIC: Denies swollen, enlarged glands. NEUROLOGICAL: Denies confusion or altered mental status. Denies passing out or loss of consciousness. Denies dizziness or lightheadedness. Denies headache. Denies weakness or paralysis or loss of use of either side. Denies problems with gait or speech. Denies sensory loss, numbness, or tingling. Denies seizures. PSYCHIATRIC: Denies anxiety or stress. Denies depression, suicidal ideation, or homicidal ideation. ALL OTHER SYSTEMS REVIEWED AND NEGATIVE. Dictation was performed using [employer] voice recognition software Physical Exam - Vital signs Vitals: Temp Pulse Resp BP Pulse Ox 98.1 F 118 H 19 172/108 H 100 10/13/17 21:45 10/13/17 21:45 10/13/17 21:45 10/13/17 21:45 10/13/17 21:45 - Notes Notes: PHYSICAL EXAMINATION: GENERAL: Well-appearing, well-nourished and in no acute distress. HEAD: Atraumatic, normocephalic. EYES: Pupils equal round and reactive to light, extraocular movements intact, conjunctiva are normal. ENT: Nares patent, oropharynx clear without exudates. Moist mucous membranes. NECK: Normal range of motion, supple without lymphadenopathy LUNGS: Breath sounds clear to auscultation bilaterally and equal. No wheezes rales or rhonchi. HEART: Regular rate and rhythm without murmurs ABDOMEN: Soft, nondistended abdomen. No guarding, no rebound. No masses appreciated. Tender through the lower pelvic region midline. Female : On initial gross external exam there was moderate clots but no severe bleeding appreciated. On speculum exam there is moderate bleeding and there was tissue noted at the cervical office that was consistent with gestational sac that appeared intact. This was removed by myself gently with ring forceps. The bleeding subsided largely thereafter. Repeat exam showed the cervix to be open to fingertip without significant cervical motion tenderness or uterine enlargement or other abnormality. No adnexal mass or tenderness. Musculoskeletal: Normal range of motion, no pitting or edema. No cyanosis. NEUROLOGICAL: Cranial nerves grossly intact. Normal speech, normal gait. Normal sensory, motor exams PSYCH: Normal mood, normal affect. SKIN: Warm, Dry, normal turgor, no rashes or lesions noted. Course - Re-evaluation Re-evalutation: 10/13/17 22:42 Patient was somewhat hypertensive. Patient was given IV Zofran and Dilaudid. 10/14/17 02:27 After gestational sac was removed, the patient's bleeding improved. The patient reported her pain also was improved. The patient was ambulatory without complaint and vital signs were stable. There is no significant anemia. Patient did not have a fever. Ultrasound showed no residual products of conception. Patient had a D&C already scheduled for 7:15 in the morning in [place]. Call was made to the referral Center, and Dr. Liu was to be contacted to cancel the 715 D&C. No evidence for blood type incompatibility or anemia or sepsis or ectopic or residual products of conception. 02/28/18 02:29 - Vital Signs Vital signs: Temp Pulse Resp BP Pulse Ox 98.1 F 118 H 19 129/84 H 96 10/13/17 21:45 10/13/17 21:45 10/13/17 21:45 10/14/17 01:01 10/14/17 01:01 - Laboratory Result Diagrams: 10/13/17 22:40 Laboratory results interpreted by me: 10/13/17 10/13/17 22:40 22:40 WBC 13.1 H Absolute Neutrophils 9.3 H Beta HCG, Quant 75193.00 H Discharge - Discharge Clinical Impression: Spontaneous miscarriage Condition: Stable Disposition: HOME, SELF-CARE Instructions: Miscarriage ([facility] Additional Instructions: Drink plenty fluids. Stand up slowly. Return to the emergency department case of fever or severe bleeding. Follow-up with Dr. Liu with [facility] is [facility] do [facility] later today or tomorrow. Prescriptions: Hydrocodone/Acetaminophen [[place] 5-325 Tablet] 1 each PO Q4HP PRN #20 tablet PRN Reason: Ondansetron [Zofran Odt 4 mg Tablet] 1 tab PO Q8HP PRN #10 tab.rapdis PRN Reason: For Nausea/Vomiting
[2017-10-13 22:59] LABS: ABSOLUTE EOSINOPHILS # (AUTO) 0.2 10^3/uL (0.0-0.6); ABSOLUTE LYMPHOCYTES (AUTO) 2.6 10^3/uL (0.5-4.7); ABSOLUTE NEUT (AUTO) 9.3 10^3/uL (1.7-8.2); BASOPHILS % (AUTO) 0.2 % (0-2); EOSINOPHILS % (AUTO) 1.4 % (0-6); HEMATOCRIT 36.3 % (36.0-47.0); HEMOGLOBIN 12.3 g/dL (12.0-15.5); LYMPHOCYTES % (AUTO) 19.6 % (13-45); MEAN CORPUSCULAR HEMOGLOBIN 29.2 pg (27.0-33.4); MEAN CORPUSCULAR HGB CONC 33.9 g/dL (32.0-36.0); MEAN CORPUSCULAR VOLUME 86 fl (80-97); MONOCYTES % (AUTO) 7.9 % (3-13); PLATELET COUNT 413 10^3/uL (150-450); RED BLOOD COUNT 4.22 10^6/uL (3.72-5.28); RED CELL DISTRIBUTION WIDTH 13.4 % (11.5-14.0); SEGMENTED NEUTROPHILS % (AUTO) 70.9 % (42-78); TOTAL CELLS COUNTED % (AUTO) 100 %; WHITE BLOOD COUNT 13.1 10^3/uL (4.0-10.5)
[2017-10-13] MEDS ORDERED: NORMAL SALINE 1000 ML 1,000 ML IV ONE (23:35)
[2017-10-13] MEDS ORDERED: METOCLOPRAMIDE HCL INJ/PF 10 MG/2 ML SDV IV ONE (23:38)
[2017-10-14] MEDS ORDERED: KETOROLAC TROMETHAMINE INJ/PF 30 MG/1 ML SDV IV ONE (00:47)
[2017-10-14] MEDS ORDERED: ONDANSETRON HCL INJ/PF 4 MG/2 ML SDV IV ONE (00:47)
--- NOTE | 2017-10-14 01:35 | RADIOLOGY REPORT (SQ) ---
EXAM DESCRIPTION: U/S OB TRANSVAGINAL W/O DOP CLINICAL HISTORY: 27 years, Female, miscarriage at 9 weeks, assess 4 retained products COMPARISON: October 11, 2017. TECHNIQUE: Transvaginal and transabdominal. LIMITATIONS: None. FINDINGS: 10.8 cm uterus contains a 1.8 cm thick mildly heterogeneous endometrial stripe with interval absence of a previous gestational sac as compared with exam from three days ago consistent with clinically suspected gestational loss. No evidence of intrauterine . No evidence of retained products of conception. Ovarian fossae appear unremarkable; ovaries are not discerned. No free fluid. IMPRESSION: Findings consistent with recent gestational loss. No evidence of retained products of conception.
[2017-10-14] MEDS ORDERED: ONDANSETRON ODT 4 MG TAB (6 TAB/ER DISP) PO PRN (02:23)
[2017-10-14] MEDS ORDERED: HYDROCODONE/ACETAMINOPHEN 5-325 MG (6 TAB/ER DISP) PO PRN (02:23)
[2017-10-14 02:45] VITALS: BP 142/95
== END 2017-10-14 02:45 | disposition home or self-care (01) ==
LOC: ER 21:42
DX: O03.9 Complete or unspecified spontaneous abortion without complication (principal); I10 Essential (primary) hypertension; J45.909 Unspecified asthma, uncomplicated; Z88.5 Allergy status to narcotic agent; Z88.8 Allergy status to other drugs, medicaments and biological substances; Z91.040 Latex allergy status; Z88.0 Allergy status to penicillin
CPT/HCPCS: 96376; 99284; 96361; 96374; 96375; 36415; 84702; 85025; 88305 ×2; 76817; J1885; J2765; J1170; J2405 ×2; J7030

== ENCOUNTER 2017-10-14 21:54 | Emergency (ER) | payer MEDICAID ==
[2017-10-14] MEDS ORDERED: HYDROMORPHONE HCL INJ/PF 2 MG/ML AMPULE IV ONE (22:35)
[2017-10-14] MEDS ORDERED: LORAZEPAM INJ 2 MG/1 ML VIAL IV ONE (22:35)
[2017-10-14] MEDS ORDERED: ONDANSETRON HCL INJ/PF 4 MG/2 ML SDV IV ONE (22:35)
[2017-10-14 22:42] LABS: ABSOLUTE BASOPHILS # (AUTO) 0.1 10^3/uL (0.0-0.2); ABSOLUTE EOSINOPHILS # (AUTO) 0.3 10^3/uL (0.0-0.6); ABSOLUTE LYMPHOCYTES (AUTO) 3.7 10^3/uL (0.5-4.7); ABSOLUTE MONOCYTES (AUTO) 0.8 10^3/uL (0.1-1.4); ABSOLUTE NEUT (AUTO) 5.7 10^3/uL (1.7-8.2); BASOPHILS % (AUTO) 0.7 % (0-2); EOSINOPHILS % (AUTO) 2.6 % (0-6); HEMATOCRIT 30.3 % (36.0-47.0); HEMOGLOBIN 10.5 g/dL (12.0-15.5); LYMPHOCYTES % (AUTO) 35.1 % (13-45); MEAN CORPUSCULAR HEMOGLOBIN 29.9 pg (27.0-33.4); MEAN CORPUSCULAR HGB CONC 34.6 g/dL (32.0-36.0); MEAN CORPUSCULAR VOLUME 87 fl (80-97); MONOCYTES % (AUTO) 7.6 % (3-13); PLATELET COUNT 414 10^3/uL (150-450); RED BLOOD COUNT 3.51 10^6/uL (3.72-5.28); RED CELL DISTRIBUTION WIDTH 13.5 % (11.5-14.0); TOTAL CELLS COUNTED % (AUTO) 100 %; WHITE BLOOD COUNT 10.5 10^3/uL (4.0-10.5)
[2017-10-14 22:42] LABS: APPEARANCE,URINE TURBID; BILIRUBIN,URINE NEGATIVE (NEGATIVE); COLOR,URINE RED; GLUCOSE, URINE NEGATIVE (NEGATIVE); KETONES,URINE NEGATIVE (NEGATIVE); LEUKOCYTE ESTERASE,URINE MODERATE (NEGATIVE); NITRITE,URINE NEGATIVE (NEGATIVE); PROTEIN,URINE 100 mg/dL (NEGATIVE); URINE SPECIFIC GRAVITY 1.009; UROBILINOGEN,URINE NEGATIVE mg/dL (<2.0)
[2017-10-14 22:59] LABS: ALANINE AMINOTRANSFERASE 422 U/L (9-52); ALBUMIN 4.3 g/dL (3.5-5.0); ALKALINE PHOSPHATASE 145 U/L (38-126); ANION GAP 13 (5-19); ASPARTATE AMINO TRANSFERASE 235 U/L (14-36); BILIRUBIN,DIRECT 0.2 mg/dL (0.0-0.4); BILIRUBIN,TOTAL 0.3 mg/dL (0.2-1.3); BLOOD UREA NITROGEN 5 mg/dL (7-20); CALCIUM 8.9 mg/dL (8.4-10.2); CARBON DIOXIDE 26 mmol/L (22-30); CHLORIDE 104 mmol/L (98-107); GLUCOSE 97 mg/dL (75-110); LIPASE 51.1 U/L (23-300); POTASSIUM 3.7 mmol/L (3.6-5.0); SODIUM 143.1 mmol/L (137-145)
--- NOTE | 2017-10-14 23:14 | ER Document Report ---
ED General - General Stated Complaint: ABDOMINAL PAIN Time Seen by Provider: 10/14/17 22:20 Mode of Arrival: Ambulatory Information source: Patient TRAVEL OUTSIDE OF THE [place] IN LAST 30 DAYS: No - HPI Notes: Patient is a 27-year-old female who had recent miscarriage with complete passage of gestational products noted on ultrasound yesterday when she was seen with moderate vaginal bleeding. The patient was given medication for pain and for nausea and was sent home. She did not follow-up with [facility] today, and comes in with report of continued although improving bleeding and lower pelvic pain and minor amount of back pain. The patient reports minimal nausea but no vomiting. She states she had a mild headache earlier. She denies any neck stiffness or fever cough or congestion or constipation or diarrhea or dysuria. Blood type was O+. The patient's hCG quantitative levels were dropping as noted yesterday and there was no anemia on blood work yesterday. - Related Data Allergies/Adverse Reactions: morphine [Morphine] Allergy (Severe, Verified 10/11/17 04:42) Difficulty breathing/itch diphenhydramine HCl [From Benadryl] Allergy (Intermediate, Verified 10/11/17 04: 42) RASH iodine [Iodine] Allergy (Intermediate, Verified 10/11/17 04:42) RASH latex [Latex] Allergy (Intermediate, Verified 10/11/17 04:42) RASH amoxicillin [Amoxicillin] Allergy (Unknown, Verified 10/11/17 04:42) Hives Penicillins Allergy (Unknown, Verified 10/11/17 04:42) Hives codeine Allergy (Verified 10/11/17 04:42) Hives Past Medical History - General Information source: Patient - Patient pneumonia - Social History Smoking Status: Never Smoker Frequency of alcohol use: None Drug Abuse: None Lives with: Family Family History: CAD, COPD, CVA, DM, Hyperlipidemia, Hypertension. denies: Arthritis, Malignancy, Thyroid Disfunction - Past Medical History Cardiac Medical History: Reports: Hx Hypertension - Not on medication Denies: Hx Heart Attack Pulmonary Medical History: Reports: Hx Asthma Denies: Hx Bronchitis, Hx COPD, Hx Pneumonia Neurological Medical History: Denies: Hx Seizures Renal/ Medical History: Reports: Hx Pelvic Inflammatory Disease. Denies: Hx Peritoneal Dialysis Musculoskeltal Medical History: Denies Hx Arthritis, Reports Hx Musculoskeletal Trauma Psychiatric Medical History: Reports: Hx Bipolar Disorder, Hx Depression, Hx Post Traumatic Stress Disorder Traumatic Medical History: Reports: Hx Fractures - Fractured ankle Past Surgical History: Reports: Hx Cholecystectomy, Hx Oral Surgery - wisdom tooth removal 07/2016, Hx Orthopedic Surgery - right ankle - Immunizations Immunizations up to date: Yes Hx Diphtheria, Pertussis, Tetanus Vaccination: Yes Review of Systems - Review of Systems Notes: REVIEW OF SYSTEMS: CONSTITUTIONAL : Denies fever, chills, or sweats. Denies recent illness. EENT: Denies eye, ear, throat, or mouth pain or symptoms. Denies nasal or sinus congestion or discharge. Denies throat, tongue, or mouth swelling or difficulty swallowing. CARDIOVASCULAR: Denies chest pain. Denies palpitations or racing or irregular heart beat. Denies ankle edema. RESPIRATORY: Denies cough, cold, or chest congestion. Denies shortness of breath, difficulty breathing, or wheezing. GASTROINTESTINAL: Denies abdominal distention. Denies nausea, vomiting, or diarrhea. Denies blood in vomitus, stools, or per rectum. Denies black, tarry stools. Denies constipation. GENITOURINARY: Denies difficulty urinating, painful urination, burning, frequency, blood in urine, or discharge. FEMALE GENITOURINARY: Denies vaginal discharge or odor. No concern for STD. The patient does report vaginal bleeding which is improving. MUSCULOSKELETAL: Denies back or neck pain or stiffness. Denies joint pain or swelling. SKIN: Denies rash, lesions or sores. HEMATOLOGIC : Denies easy bruising or bleeding. LYMPHATIC: Denies swollen, enlarged glands. NEUROLOGICAL: Denies confusion or altered mental status. Denies passing out or loss of consciousness. Denies dizziness or lightheadedness. Denies headache. Denies weakness or paralysis or loss of use of either side. Denies problems with gait or speech. Denies sensory loss, numbness, or tingling. Denies seizures. PSYCHIATRIC: Denies anxiety or stress. Denies depression, suicidal ideation, or homicidal ideation. ALL OTHER SYSTEMS REVIEWED AND NEGATIVE. Dictation was performed using [employer] recognition software -: Yes All other systems reviewed and negative Physical Exam - Vital signs Vitals: Temp Pulse Resp BP Pulse Ox 98 F 104 H 18 159/85 H 100 10/14/17 22:07 10/14/17 22:07 10/14/17 22:07 10/14/17 22:07 10/14/17 22:07 - Notes Notes: PHYSICAL EXAMINATION: GENERAL: Well-appearing, well-nourished and in no acute distress. Anxious. HEAD: Atraumatic, normocephalic. EYES: Pupils equal round and reactive to light, extraocular movements intact, conjunctiva are normal. ENT: Nares patent, oropharynx clear without exudates. Moist mucous membranes. NECK: Normal range of motion, supple without lymphadenopathy LUNGS: Breath sounds clear to auscultation bilaterally and equal. No wheezes rales or rhonchi. HEART: Regular rate and rhythm without murmurs ABDOMEN: Soft, nondistended abdomen. No guarding, no rebound. No masses appreciated. Mild tenderness appreciated to the suprapubic region. No rebound or guarding. Female : deferred. Pelvic exam done yesterday. Musculoskeletal: Normal range of motion, no pitting or edema. No cyanosis. NEUROLOGICAL: Cranial nerves grossly intact. Normal speech, normal gait. Normal sensory, motor exams PSYCH: Normal mood, normal affect. SKIN: Warm, Dry, normal turgor, no rashes or lesions noted. Course - Re-evaluation Re-evalutation: 10/15/17 01:27 Patient states her bleeding seemed to improve. Initially, order was written for TXA, but the patient politely refused after discussion of side effects. Patient continually requested medications for anxiety and for pain. Review of [facility] drug database showed no significant abnormality, although the patient has been on benzodiazepines and pain medications previously. The patient does have a history of multiple visits for painful conditions however. There is only a mild anemia noted on the current blood work. The patient does have elevation of her liver enzymes however. Repeat abdominal exam showed no pain over the liver. Negative Samaniego's. The patient does report previous episodes of having elevated liver enzymes in the past. A hepatitis panel is ordered. The patient denies any significant Tylenol use, but she is instructed to avoid Tylenol until she has follow-up lab work performed. Vital signs remained stable. 10/15/17 01:31 Questionable urine infection noted. Urine cultures obtained in the patient's given IV Rocephin. The patient states she has tolerated IV Rocephin previously. Patient will be started on p.o. Cipro. Given the elevated liver enzymes, the patient will have repeat blood work drawn on Thursday when she follows up with her regular practitioner. The patient will refrain from using Tylenol. 10/15/17 01:36 - Vital Signs Vital signs: Temp Pulse Resp BP Pulse Ox 98 F 104 H 18 145/95 H 98 10/14/17 22:07 10/14/17 22:07 10/15/17 00:01 10/15/17 00:01 10/15/17 00:01 - Laboratory Result Diagrams: 10/14/17 22:34 10/14/17 22:34 Laboratory results interpreted by me: 10/14/17 10/14/17 10/14/17 22:00 22:34 22:34 RBC 3.51 L Hgb 10.5 L Hct 30.3 L BUN 5 L AST 235 H ALT 422 H Alkaline Phosphatase 145 H Urine Protein 100 H Urine Blood LARGE H Ur Leukocyte Esterase MODERATE H Acetaminophen 10/15/17 00:24 RBC Hgb Hct BUN AST ALT Alkaline Phosphatase Urine Protein Urine Blood Ur Leukocyte Esterase Acetaminophen < 10 L Discharge - Discharge Clinical Impression: Miscarriage, Elevated liver enzymes UTI (urinary tract infection) Qualifiers: Urinary tract infection type: site unspecified Hematuria presence: without hematuria Qualified Code(s): N39.0 - Urinary tract infection, site not specified Condition: Stable Disposition: HOME, SELF-CARE Admitting Provider: Noe pichardo [facility] Instructions: Urinary Tract Infection ([facility]), Miscarriage ([facility]) Additional Instructions: Drink plenty fluids. Stand up slowly. Return to the emergency department case of severe bleeding or Fever. Follow-up with [facility] and have repeat blood work drawn on Thursday to recheck your liver enzymes and blood count. Avoid taking Tylenol until your regular practitioner tells you otherwise. Prescriptions: Oxycodone HCl [Oxycodone HCl 10 MG Tablet] 1 tab PO Q6H PRN #15 tablet PRN Reason: PAIN
[2017-10-14] MEDS ORDERED: TRANEXAMIC ACID INJ/PF 1,000 MG/10 ML SDV IV ONE (23:57)
[2017-10-15] MEDS ORDERED: HYDROMORPHONE HCL INJ/PF 2 MG/ML AMPULE IV ONE (00:18)
[2017-10-15] MEDS ORDERED: LORAZEPAM INJ 2 MG/1 ML VIAL IV ONE (00:41)
[2017-10-15] MEDS ORDERED: CEFTRIAXONE INJ 1000 MG VIAL IV ONE (01:03)
[2017-10-15] MEDS ORDERED: OXYCODONE HCL IR 5 MG TABLET PO ONE (01:47)
[2017-10-15 03:23] VITALS: BP 135/84
[2017-10-16 07:41] LABS: HEPATITIS A AB IGM Negative (Negative); HEPATITIS B CORE AB IGM Negative (Negative); HEPATITS B SURFACE ANTIGEN Negative (Negative)
[2017-10-16 08:09] LABS: HEPATITIS C VIRUS ANTIBODY <0.1 s/co ratio (0.0-0.9)
== END 2017-10-15 03:24 | disposition home or self-care (01) ==
LOC: ER 21:54
DX: O03.9 Complete or unspecified spontaneous abortion without complication (principal); R74.8 Abnormal levels of other serum enzymes; O16.1 Unspecified maternal hypertension, first trimester; R10.30 Lower abdominal pain, unspecified; Z3A.09 9 weeks gestation of pregnancy
CPT/HCPCS: 96376; 99283; 96375; 96365; 36415; 83690; 80307; 85025; 80053; 81001; 80074; J1170 ×2; J2060 ×2; J0696; J2405; J3490

== ENCOUNTER 2017-10-17 18:17 | Emergency (ER) | payer MEDICAID ==
[2017-10-17] MEDS ORDERED: NORMAL SALINE 1000 ML 1,000 ML IV ONE ×2 (19:06→19:36)
[2017-10-17] MEDS ORDERED: HYDROMORPHONE HCL INJ/PF 2 MG/ML AMPULE IV ONE (19:07)
[2017-10-17] MEDS ORDERED: ONDANSETRON HCL INJ/PF 4 MG/2 ML SDV IV ONE (19:07)
--- NOTE | 2017-10-17 19:11 | ER Document Report ---
ED Medical Screen (RME) - General Chief Complaint: Vaginal Bleeding Stated Complaint: VAGINAL BLEEDING Time Seen by Provider: 10/17/17 19:06 Notes: Patient was seen here 1 week ago at 10 weeks of and found to have a fetus of only 6 weeks and 6 days size with apparent demise. She was sent home and returned on Thursday to miscarry here in the emergency department. She went home and her bleeding gradually subsided and stopped. She resumed bleeding this morning along with clots. She has used 7 pads today. Having severe cramping. Also having a headache. Has had chills and felt cold, but no fever. This was patient's third . TRAVEL OUTSIDE OF THE [place] IN LAST 30 DAYS: No - Related Data Allergies/Adverse Reactions: morphine [Morphine] Allergy (Severe, Verified 10/11/17 04:42) Difficulty breathing/itch iodine [Iodine] Allergy (Intermediate, Verified 10/11/17 04:42) RASH latex [Latex] Allergy (Intermediate, Verified 10/11/17 04:42) RASH amoxicillin [Amoxicillin] Allergy (Unknown, Verified 10/11/17 04:42) Hives Penicillins Allergy (Unknown, Verified 10/11/17 04:42) Hives acetaminophen [From Tylenol] Allergy (Verified 10/17/17 19:06) codeine Allergy (Verified 10/11/17 04:42) Hives Past Medical History - Social History Frequency of alcohol use: Occasional Drug Abuse: None Family history: Reviewed & Not Pertinent, Hypertension, Other - copd - Past Medical History Cardiac Medical History: Reports: Hx Hypertension - Not on medication Denies: Hx Heart Attack Pulmonary Medical History: Reports: Hx Asthma Denies: Hx Bronchitis, Hx COPD, Hx Pneumonia Neurological Medical History: Denies: Hx Seizures Renal/ Medical History: Reports: Hx Pelvic Inflammatory Disease. Denies: Hx Peritoneal Dialysis Musculoskeltal Medical History: Denies Hx Arthritis, Reports Hx Musculoskeletal Trauma Psychiatric Medical History: Reports: Hx Bipolar Disorder, Hx Depression, Hx Post Traumatic Stress Disorder Traumatic Medical History: Reports: Hx Fractures - Fractured ankle Past Surgical History: Reports: Hx Cholecystectomy, Hx Oral Surgery - wisdom tooth removal 07/2016, Hx Orthopedic Surgery - right ankle - Immunizations Immunizations up to date: Yes Hx Diphtheria, Pertussis, Tetanus Vaccination: Yes Physical Exam - Vital signs Vitals: Temp Pulse Resp BP Pulse Ox 98.4 F 119 H 16 152/88 H 100 10/17/17 18:21 10/17/17 18:21 10/17/17 18:21 10/17/17 18:21 10/17/17 18:21 Course - Vital Signs Vital signs: Temp Pulse Resp BP Pulse Ox 98.4 F 119 H 16 152/88 H 100 10/17/17 18:21 10/17/17 18:21 10/17/17 18:21 10/17/17 18:21 10/17/17 18:21
--- NOTE | 2017-10-17 19:43 | ER Document Report ---
ED General - General Chief Complaint: Vaginal Bleeding Stated Complaint: VAGINAL BLEEDING Time Seen by Provider: 10/17/17 19:06 TRAVEL OUTSIDE OF THE [place] IN LAST 30 DAYS: No - HPI Notes: Patient is a 27-year-old female (1 other prev miscarriage) who presents to the ED status post recent miscarriage. Patient was evaluated 1 week ago with vaginal bleeding cramping at approximately 10 weeks . Patient returned on Thursday where she had her miscarriage. Patient states that the bleeding did seem to subside upon discharge that day, but began bleeding today again. Patient states that she has gone through 7 maxipads throughout the day. Patient states that she is also felt chills without fever and has had a mild headache. Patient has associated abdominal cramping as well. Patient states that her bleeding has calmed down to a menstrual cycle flow. Patient is still drinking some fluids, but does have some intermittent nausea (1 episode of vomiting today) and decreased solid intake. She is otherwise urinating normally having normal bowel movements. Denies any fever, neck pain, URI, sore throat, chest pain, palpitations, syncope, cough, shortness of breath, wheeze, dyspnea, diarrhea, urinary retention, dysuria, hematuria, loss of control of bowel or bladder, numbness/tingling, saddle anesthesia, muscle paralysis/ weakness, or rash. - Related Data Allergies/Adverse Reactions: morphine [Morphine] Allergy (Severe, Verified 10/11/17 04:42) Difficulty breathing/itch iodine [Iodine] Allergy (Intermediate, Verified 10/11/17 04:42) RASH latex [Latex] Allergy (Intermediate, Verified 10/11/17 04:42) RASH amoxicillin [Amoxicillin] Allergy (Unknown, Verified 10/11/17 04:42) Hives Penicillins Allergy (Unknown, Verified 10/11/17 04:42) Hives acetaminophen [From Tylenol] Allergy (Verified 10/17/17 19:06) codeine Allergy (Verified 10/11/17 04:42) Hives Past Medical History - Social History Smoking Status: Current Every Day Smoker Frequency of alcohol use: Occasional Drug Abuse: None Family History: CAD, COPD, CVA, DM, Hyperlipidemia, Hypertension. denies: Arthritis, Malignancy, Thyroid Disfunction Patient has suicidal ideation: No Patient has homicidal ideation: No - Past Medical History Cardiac Medical History: Reports: Hx Hypertension - Not on medication Denies: Hx Heart Attack Pulmonary Medical History: Reports: Hx Asthma Denies: Hx Bronchitis, Hx COPD, Hx Pneumonia Neurological Medical History: Denies: Hx Seizures Renal/ Medical History: Reports: Hx Pelvic Inflammatory Disease. Denies: Hx Peritoneal Dialysis Musculoskeltal Medical History: Denies Hx Arthritis, Reports Hx Musculoskeletal Trauma Psychiatric Medical History: Reports: Hx Bipolar Disorder, Hx Depression, Hx Post Traumatic Stress Disorder Traumatic Medical History: Reports: Hx Fractures - Fractured ankle Past Surgical History: Reports: Hx Cholecystectomy, Hx Oral Surgery - wisdom tooth removal 07/2016, Hx Orthopedic Surgery - right ankle - Immunizations Immunizations up to date: Yes Hx Diphtheria, Pertussis, Tetanus Vaccination: Yes Review of Systems - Review of Systems -: Yes All other systems reviewed and negative Physical Exam - Vital signs Vitals: Temp Pulse Resp BP Pulse Ox 98.4 F 119 H 16 152/88 H 100 10/17/17 18:21 10/17/17 18:21 10/17/17 18:21 10/17/17 18:21 10/17/17 18:21 Notes: I do not agree with 77% on RA at recent O2 check. Pt perfusing well, no distress. - Notes Notes: PHYSICAL EXAMINATION: GENERAL: Well-appearing, well-nourished and in no acute distress. A&Ox4. Answers questions appropriately. LUNGS: Breath sounds clear to auscultation bilaterally and equal. No wheezes rales or rhonchi. HEART: Regular rate and rhythm without murmurs, rubs, gallops. ABDOMEN: Soft, nondistended abdomen. No guarding, no rebound. No masses appreciated. Normal bowel sounds present. No CVA tenderness bilaterally. + lower abdominal tenderness. No tenderness at McBurney point. berkowitz neg. Musculoskeletal: FROM to passive/active. Strength 5+/5. Extremities: No cyanosis, clubbing, or edema b/l. Peripheral pulses 2+. Capillary refill less than 3 seconds. NEUROLOGICAL: Normal speech. Normal sensory, motor exams PSYCH: Normal mood, normal affect. SKIN: Warm, Dry, normal turgor, no rashes or lesions noted. Course - Re-evaluation Re-evalutation: 10/17/17 20:48 Patient is an afebrile, well-hydrated, 27-year-old female who presents to the ED with vaginal bleeding status post miscarriage about 4 days ago. Vitals are stable. PE is otherwise unremarkable. CBC showed a mild anemia, without acute change from previous. CMP is unremarkable for any acute pathology. Patient was given Dilaudid, Zofran, and fluids. No blood transfusion is warranted at this time. Patient's bleeding has actually improved per patient. Patient is able to tolerate p.o. reviewed with Dr. Nugent, no other labs or imaging warranted at this time based on H&P. Low suspicion/risk for acute appendicitis , bowel obstruction, acute cholecystitis, acute cholangitis, perforated diverticulitis, incarcerated hernia, pancreatitis, perforated ulcer, peritonitis , sepsis, pelvic inflammatory disease, ectopic , tubo-ovarian abscess, ovarian torsion, shock, or other systemic emergent condition at this time. Patient is aware that her condition can change from initial presentation and she needs to monitor symptoms closely and seek medical attention if any acute changes. I will send her home with a prescription for Zofran. Conservative measures otherwise for symptoms. Recheck with OBGYN on Thursday. Recheck with your PCM in 3-5 days. Return to the ED with any worsening/concerning symptoms otherwise as reviewed in discharge. Patient is in agreement. - Vital Signs Vital signs: Temp Pulse Resp BP Pulse Ox 98.4 F 119 H 16 152/88 H 77 L 10/17/17 18:21 10/17/17 18:21 10/17/17 18:21 10/17/17 18:21 10/17/17 20:02 - Laboratory Result Diagrams: 10/17/17 19:50 10/17/17 19:50 Laboratory results interpreted by me: 10/17/17 19:50 WBC 11.0 H RBC 3.41 L Hgb 10.0 L Hct 29.3 L Plt Count 454 H Discharge - Discharge Clinical Impression: Vaginal bleeding, Miscarriage Condition: Stable Disposition: HOME, SELF-CARE Instructions: Miscarriage ([facility]) Additional Instructions: Maintain adequate fluid and food intake [place] diet ([facility] Bananas, rice, apples, toast, etc Zofran as needed tylenol/ibuprofen if needed Monitor for any worsening symptoms Make sure you are staying hydrated enough to urinate and have normal BM's Recheck with your PCM in 3-5 days Recheck with OBGYN on Thursday* Return to the ED with any worsening symptoms and/or development of fever, headache, chest pain, palpitations, syncope, shortness of breath, trouble breathing, abdominal pain, n/v/d, blood in stool/urine, weakness, or other worsening symptoms that are concerning to you. Forms: Elevated Blood Pressure Referrals: [facility] [Provider Group] - Follow up as needed ROBERTO WALKER MD [[facility]] - 10/19/17
[2017-10-17 20:14] LABS: ABSOLUTE EOSINOPHILS # (AUTO) 0.3 10^3/uL (0.0-0.6); ABSOLUTE LYMPHOCYTES (AUTO) 2.2 10^3/uL (0.5-4.7); ABSOLUTE MONOCYTES (AUTO) 0.8 10^3/uL (0.1-1.4); ABSOLUTE NEUT (AUTO) 7.7 10^3/uL (1.7-8.2); BASOPHILS % (AUTO) 0.4 % (0-2); EOSINOPHILS % (AUTO) 2.9 % (0-6); HEMATOCRIT 29.3 % (36.0-47.0); LYMPHOCYTES % (AUTO) 19.7 % (13-45); MEAN CORPUSCULAR HEMOGLOBIN 29.4 pg (27.0-33.4); MEAN CORPUSCULAR HGB CONC 34.1 g/dL (32.0-36.0); MEAN CORPUSCULAR VOLUME 86 fl (80-97); MONOCYTES % (AUTO) 6.9 % (3-13); PLATELET COUNT 454 10^3/uL (150-450); RED BLOOD COUNT 3.41 10^6/uL (3.72-5.28); RED CELL DISTRIBUTION WIDTH 13.4 % (11.5-14.0); SEGMENTED NEUTROPHILS % (AUTO) 70.1 % (42-78); TOTAL CELLS COUNTED % (AUTO) 100 %
[2017-10-17] MEDS ORDERED: FERROUS SULFATE 325 MG TABLET PO ONE (20:47)
[2017-10-17] MEDS ORDERED: DOCUSATE SODIUM 100 MG/10 ML UDC PO ONE (20:48)
[2017-10-17 21:01] LABS: BLOOD UREA NITROGEN 6 mg/dL (7-20); CALCIUM 8.7 mg/dL (8.4-10.2); GLUCOSE 84 mg/dL (75-110)
[2017-10-17 21:02] LABS: CARBON DIOXIDE 26 mmol/L (22-30); POTASSIUM 3.5 mmol/L (3.6-5.0)
[2017-10-17 21:03] LABS: ALANINE AMINOTRANSFERASE 293 U/L (9-52)
[2017-10-17 21:04] LABS: BILIRUBIN,DIRECT 0.2 mg/dL (0.0-0.4); BILIRUBIN,TOTAL 0.2 mg/dL (0.2-1.3)
[2017-10-17 21:05] LABS: ANION GAP 7 (5-19); CHLORIDE 107 mmol/L (98-107); SODIUM 139.8 mmol/L (137-145); TOTAL PROTEIN 7.1 g/dL (6.3-8.2)
[2017-10-17 21:06] LABS: ALKALINE PHOSPHATASE 110 U/L (38-126); ASPARTATE AMINO TRANSFERASE 142 U/L (14-36)
[2017-10-17] MEDS ORDERED: DOCUSATE SODIUM 100 MG CAPSULE PO ONE (21:07)
[2017-10-17 21:22] VITALS: BP 124/86
== END 2017-10-17 21:22 | disposition home or self-care (01) ==
LOC: ER 18:17
DX: O02.1 Missed abortion (principal); O99.331 Smoking (tobacco) complicating pregnancy, first trimester; Z3A.10 10 weeks gestation of pregnancy; Z91.040 Latex allergy status; Z88.6 Allergy status to analgesic agent; Z88.0 Allergy status to penicillin
CPT/HCPCS: 99284; 96361; 96374; 96375; 86900; 86901; 36415; 86850; 84702; 85025; 80053; J3490 ×2; J1170; J2405; J7030

== ENCOUNTER 2017-10-29 18:15 | Emergency (ER) | payer MEDICAID ==
[2017-10-29 18:36] VITALS: BP 137/87
[2017-10-29] MEDS ORDERED: LIDOCAINE 5% (700 MG) TRANSDERMAL ADH..PATCH TP ONE (18:59)
--- NOTE | 2017-10-29 18:59 | ER Document Report ---
ED General - General Chief Complaint: Shoulder Pain Stated Complaint: SHOULDER PAIN Time Seen by Provider: 10/29/17 18:50 Mode of Arrival: Ambulatory Information source: Patient Notes: 27 yr old female presents with complaints of chroni left shoulder pain , patient was diagnosed with bursitis, noted ot have reiceved a cortisone injection in the shoudler yesterday by Dr Pardo. pt notes that the symptoms worsen. TRAVEL OUTSIDE OF THE [place] IN LAST 30 DAYS: No - HPI Onset: Yesterday Onset/Duration: Persistent Quality of pain: No pain Severity: Mild Pain Level: 1 Associated symptoms: Body/muscle aches Exacerbated by: Movement Relieved by: Denies Similar symptoms previously: Yes Recently seen / treated by doctor: Yes - Related Data Allergies/Adverse Reactions: morphine [Morphine] Allergy (Severe, Verified 10/29/17 18:27) Difficulty breathing/itch iodine [Iodine] Allergy (Intermediate, Verified 10/29/17 18:27) RASH latex [Latex] Allergy (Intermediate, Verified 10/29/17 18:27) RASH amoxicillin [Amoxicillin] Allergy (Unknown, Verified 10/29/17 18:27) Hives Penicillins Allergy (Unknown, Verified 10/29/17 18:27) Hives acetaminophen [From Tylenol] Allergy (Verified 10/29/17 18:27) codeine Allergy (Verified 10/29/17 18:27) Hives Past Medical History - Social History Smoking Status: Former Smoker Cigarette use (# per day): No Chew tobacco use (# tins/day): No Smoking Education Provided: No Frequency of alcohol use: Occasional Drug Abuse: None Family History: CAD, COPD, CVA, DM, Hyperlipidemia, Hypertension. denies: Arthritis, Malignancy, Thyroid Disfunction Patient has suicidal ideation: No Patient has homicidal ideation: No - Past Medical History Cardiac Medical History: Reports: Hx Hypertension - Not on medication Denies: Hx Heart Attack Pulmonary Medical History: Reports: Hx Asthma Denies: Hx Bronchitis, Hx COPD, Hx Pneumonia Neurological Medical History: Denies: Hx Seizures Renal/ Medical History: Reports: Hx Pelvic Inflammatory Disease. Denies: Hx Peritoneal Dialysis Musculoskeltal Medical History: Denies Hx Arthritis, Reports Hx Musculoskeletal Trauma Psychiatric Medical History: Reports: Hx Depression, Hx Post Traumatic Stress Disorder Denies: Hx Bipolar Disorder Traumatic Medical History: Reports: Hx Fractures - Fractured ankle Past Surgical History: Reports: Hx Cholecystectomy, Hx Oral Surgery - wisdom tooth removal 07/2016, Hx Orthopedic Surgery - right ankle - Immunizations Immunizations up to date: Yes Hx Diphtheria, Pertussis, Tetanus Vaccination: Yes Review of Systems - Review of Systems Notes: REVIEW OF SYSTEMS: CONSTITUTIONAL : Denies fever, chills, or sweats. Denies recent illness. EENT: Denies eye, ear, throat, or mouth pain or symptoms. Denies nasal or sinus congestion or discharge. Denies throat, tongue, or mouth swelling or difficulty swallowing. CARDIOVASCULAR: Denies chest pain. Denies palpitations or racing or irregular heart beat. Denies ankle edema. RESPIRATORY: Denies cough, cold, or chest congestion. Denies shortness of breath, difficulty breathing, or wheezing. GASTROINTESTINAL: Denies abdominal pain or distention. Denies nausea, vomiting , or diarrhea. Denies blood in vomitus, stools, or per rectum. Denies black, tarry stools. Denies constipation. GENITOURINARY: Denies difficulty urinating, painful urination, burning, frequency, blood in urine, or discharge. FEMALE GENITOURINARY: Denies vaginal bleeding, heavy or abnormal periods, irregular periods. Denies vaginal discharge or odor. MUSCULOSKELETAL: admits to left shoulder pain HEMATOLOGIC : Denies easy bruising or bleeding. LYMPHATIC: Denies swollen, enlarged glands. NEUROLOGICAL: Denies confusion or altered mental status. Denies passing out or loss of consciousness. Denies dizziness or lightheadedness. Denies headache. Denies weakness or paralysis or loss of use of either side. Denies problems with gait or speech. Denies sensory loss, numbness, or tingling. Denies seizures. PSYCHIATRIC: Denies anxiety or stress. Denies depression, suicidal ideation, or homicidal ideation. ALL OTHER SYSTEMS REVIEWED AND NEGATIVE. PHYSICAL EXAMINATION: GENERAL: Well-appearing, well-nourished and in no acute distress. HEAD: Atraumatic, normocephalic. EYES: Pupils equal round and reactive to light, extraocular movements intact, conjunctiva are normal. ENT: Nares patent, oropharynx clear without exudates. Moist mucous membranes. NECK: Normal range of motion, supple without lymphadenopathy LUNGS: Breath sounds clear to auscultation bilaterally and equal. No wheezes rales or rhonchi. HEART: Regular rate and rhythm without murmurs ABDOMEN: Soft, nontender, nondistended abdomen. No guarding, no rebound. No masses appreciated. Female : deferred Musculoskeletal: limited rom of the left shoulder secondary to pain, no sign of infection, no swelling. NEUROLOGICAL: Cranial nerves grossly intact. Normal speech, normal gait. Normal sensory, motor exams PSYCH: Normal mood, normal affect. SKIN: Warm, Dry, normal turgor, no rashes or lesions noted. Dictation was performed using [employer] voice recognition software Physical Exam - Vital signs Vitals: Temp Pulse BP Pulse Ox 98.4 F 97 137/87 H 99 10/29/17 18:30 10/29/17 18:30 10/29/17 18:30 10/29/17 18:30 Course - Re-evaluation Re-evalutation: 10/29/17 19:34 Patient is quite allergic to many medications, I will treated with a Lidoderm patch and have her follow-up with orthopedics tomorrow for further evaluation and care otherwise she looks well is in no distress After performing a Medical Screening Examination, I estimate there is LOW risk for INTRACRANIAL HEMORRHAGE, UNSTABLE SPINE FRACTURE, CENTRAL CORD SYNDROME, CAUDA EQUINA, THORACIC AORTIC DISSECTION, PNEUMOTHORAX, PERFORATED BOWEL, RUPTURED ABDOMINAL AORTIC ANEURYSM, ACUTE TENDON RUPTURE, COMPARTMENT SYNDROME, or OPEN FRACTURE, thus I consider the discharge disposition reasonable. Also, there is no evidence or peritonitis, sepsis, or toxicity. I have reevaluated this patient multiple times and no significant life threatening changes are noted. The patient and I have discussed the diagnosis and risks, and we agree with discharging home to follow-up with their primary doctor with the understanding that symptoms and presentations can change. We also discussed returning to the Emergency Department immediately if new or worsening symptoms occur. We have discussed the symptoms which are most concerning (e.g., bloody stool, fever, changing or worsening pain, vomiting) that necessitate immediate return. - Vital Signs Vital signs: Temp Pulse Resp BP Pulse Ox 98.4 F 97 137/87 H 99 10/29/17 18:30 10/29/17 18:30 10/29/17 18:30 10/29/17 18:30 Discharge - Discharge Clinical Impression: Shoulder pain, left Qualifiers: Chronicity: chronic Qualified Code(s): M25.512 - Pain in left shoulder; G89.29 - Other chronic pain; G89.29 - Other chronic pain Condition: Stable Disposition: HOME, SELF-CARE Instructions: Contusion ([facility]) Prescriptions: Lidocaine [Lidoderm 5% (700 mg) Transdermal Patch] 1 patch TP DAILY #30 adh..patch Referrals: NED FOSTER MD [ACTIVE STAFF] - Follow up tomorrow
== END 2017-10-29 19:09 | disposition home or self-care (01) ==
LOC: ER 18:15
DX: G89.29 Other chronic pain (principal); M25.512 Pain in left shoulder; M75.52 Bursitis of left shoulder; Z98.890 Other specified postprocedural states; I10 Essential (primary) hypertension; J45.909 Unspecified asthma, uncomplicated; Z88.5 Allergy status to narcotic agent; Z91.040 Latex allergy status; Z88.0 Allergy status to penicillin; Z88.6 Allergy status to analgesic agent
CPT/HCPCS: 99283; J3490

== ENCOUNTER 2018-01-06 16:20 | Emergency (ER) | payer MEDICAID ==
--- NOTE | 2018-01-06 16:37 | ER Document Report ---
ED Medical Screen (RME) - General Chief Complaint: Leg Pain Stated Complaint: LEG NUMBNESS Time Seen by Provider: 01/06/18 16:31 Notes: RAPID MEDICAL EVALUATION DISCLOSURE I have seen this patient as part of a Rapid Medical Evaluation and, if applicable, placed any initially appropriate orders. The patient will be seen and fully evaluated, including a full history and physical exam, by a provider ( in Main ED or Fast Track) when a room becomes available. 27-year-old female here with complaints of low back pain that has been ongoing for several months now due to "a herniated disc". For the past 3 weeks she has had pain radiating down her right leg as well as numbness/tingling however over the past 3 days, she started having pain radiating down her left leg as well as numbness/tingling. She has also been having some numbness/tingling in her groin area and has been having new incontinence. She reports today that she has had several episodes of incontinence where she did not even know that she needed to urinate. TRAVEL OUTSIDE OF THE [place] IN LAST 30 DAYS: No - Related Data Allergies/Adverse Reactions: morphine [Morphine] Allergy (Severe, Verified 11/26/17 17:01) Difficulty breathing/itch iodine [Iodine] Allergy (Intermediate, Verified 11/26/17 17:01) RASH latex [Latex] Allergy (Intermediate, Verified 11/26/17 17:01) RASH amoxicillin [Amoxicillin] Allergy (Unknown, Verified 11/26/17 17:01) Hives Penicillins Allergy (Unknown, Verified 11/26/17 17:01) Hives codeine Allergy (Verified 11/26/17 17:01) Hives Past Medical History - Social History Family history: Reviewed & Not Pertinent, Hypertension, Other - copd - Past Medical History Cardiac Medical History: Reports: Hx Hypertension Denies: Hx Heart Attack Pulmonary Medical History: Reports: Hx Asthma Denies: Hx Bronchitis, Hx COPD, Hx Pneumonia Neurological Medical History: Denies: Hx Seizures Renal/ Medical History: Reports: Hx Pelvic Inflammatory Disease. Denies: Hx Peritoneal Dialysis Musculoskeltal Medical History: Denies Hx Arthritis, Reports Hx Musculoskeletal Trauma Psychiatric Medical History: Reports: Hx Depression, Hx Post Traumatic Stress Disorder Denies: Hx Bipolar Disorder Traumatic Medical History: Reports: Hx Fractures - Fractured ankle Past Surgical History: Reports: Hx Cholecystectomy, Hx Oral Surgery - wisdom tooth removal 07/2016, Hx Orthopedic Surgery - right ankle - Immunizations Immunizations up to date: Yes Hx Diphtheria, Pertussis, Tetanus Vaccination: Yes Physical Exam - Vital signs Vitals: Temp Pulse Resp BP Pulse Ox 97.6 F 78 18 134/86 H 100 01/06/18 16:25 01/06/18 16:25 01/06/18 16:25 01/06/18 16:25 01/06/18 16:25 Course - Vital Signs Vital signs: Temp Pulse Resp BP Pulse Ox 97.6 F 78 18 134/86 H 100 01/06/18 16:25 01/06/18 16:25 01/06/18 16:25 01/06/18 16:25 01/06/18 16:25
[2018-01-06] MEDS ORDERED: OXYCODONE-ACETAMINOPHEN 5-325 MG TABLET PO ONE ×2 (17:11→20:22)
--- NOTE | 2018-01-06 17:11 | ER Document Report ---
ED General - General Mode of Arrival: Ambulatory Information source: Patient TRAVEL OUTSIDE OF THE [place] IN LAST 30 DAYS: No - HPI Onset: Other - See above Onset/Duration: Gradual Quality of pain: Dull Severity: Moderate Pain Level: 2 Associated symptoms: Other - See above Exacerbated by: Walking Relieved by: Denies Similar symptoms previously: Yes Recently seen / treated by doctor: Yes - General Chief Complaint: Leg Pain Stated Complaint: LEG NUMBNESS Time Seen by Provider: 01/06/18 16:31 Notes: Patient is a 27-year-old female who states around mid September she started to have nontraumatic pain to her lower back. She states it was across her entire lower back with some radiation down her right leg. She saw Dr. Moya in December 28 received an epidural injection. She had no MRI previous to this injection. She states she did have a CT 2 weeks before this injection and they thought that the patient was suffering from sciatica. She states for the last 2 days she has had now radiation down both legs. She denies any fevers. She is able to walk but it is painful. She states some tingling in bilateral legs. She does state that she has some "urine dripping". She has no bowel incontinence. She has no fevers or dysuria. Patient walked into the emergency department. ( CHANTEL FRITZ) - Related Data Allergies/Adverse Reactions: morphine [Morphine] Allergy (Severe, Verified 11/26/17 17:01) Difficulty breathing/itch iodine [Iodine] Allergy (Intermediate, Verified 11/26/17 17:01) RASH latex [Latex] Allergy (Intermediate, Verified 11/26/17 17:01) RASH amoxicillin [Amoxicillin] Allergy (Unknown, Verified 11/26/17 17:01) Hives Penicillins Allergy (Unknown, Verified 11/26/17 17:01) Hives codeine Allergy (Verified 11/26/17 17:01) Hives Past Medical History - General Information source: Patient - Social History Smoking Status: Former Smoker Cigarette use (# per day): No Chew tobacco use (# tins/day): No Smoking Education Provided: No Frequency of alcohol use: None Drug Abuse: None Family History: CAD, COPD, CVA, DM, Hyperlipidemia, Hypertension. denies: Arthritis, Malignancy, Thyroid Disfunction Patient has suicidal ideation: No Patient has homicidal ideation: No - Past Medical History Cardiac Medical History: Reports: Hx Hypertension Denies: Hx Heart Attack Pulmonary Medical History: Reports: Hx Asthma Denies: Hx Bronchitis, Hx COPD, Hx Pneumonia Neurological Medical History: Denies: Hx Seizures Renal/ Medical History: Reports: Hx Pelvic Inflammatory Disease. Denies: Hx Peritoneal Dialysis Musculoskeltal Medical History: Denies Hx Arthritis, Reports Hx Musculoskeletal Trauma Psychiatric Medical History: Reports: Hx Depression, Hx Post Traumatic Stress Disorder Denies: Hx Bipolar Disorder Traumatic Medical History: Reports: Hx Fractures - Fractured ankle Past Surgical History: Reports: Hx Cholecystectomy, Hx Oral Surgery - wisdom tooth removal 07/2016, Hx Orthopedic Surgery - right ankle - Immunizations Immunizations up to date: Yes Hx Diphtheria, Pertussis, Tetanus Vaccination: Yes Review of Systems - Review of Systems Constitutional: denies: Fever Cardiovascular: denies: Chest pain, Palpitations Respiratory: denies: Short of breath Gastrointestinal: denies: Abdominal pain, Vomiting Genitourinary: denies: Dysuria Skin: denies: Rash Neurological/Psychological: Other - no slurred speech -: Yes All other systems reviewed and negative Physical Exam - Vital signs Vitals: Temp Pulse Resp BP Pulse Ox 97.6 F 78 18 134/86 H 100 01/06/18 16:25 01/06/18 16:25 01/06/18 16:25 01/06/18 16:25 01/06/18 16:25 Notes: Reviewed vital signs and nursing note as charted by RN. CONSTITUTIONAL: Alert and oriented and responds appropriately to questions. Well -appearing; well-nourished HEAD: Normocephalic; atraumatic EYES: PERRL CARD: Regular rate and rhythm; no murmurs RESP: Normal chest excursion without splinting or tachypnea; breath sounds clear and equal bilaterally ABD/GI: Normal bowel sounds; non-distended; soft, non-tender to deep palpation of all 4 quadrants of the abdomen BACK: The back appears normal with no swelling, erythema, induration, or step- offs present EXT: Normal ROM in all joints; non-tender to palpation, no edema SKIN: No acute lesions noted NEURO: Patient has 5 out of 5 bilateral plantar and flexion extension of the feet. Neurovascularly intact distally. With software integration developer present I performed a rectal examination I do not detect any decreased tone. Patient is endorsing some saddle anesthesia PSYCH: The patient's mood and manner are appropriate. Grooming and personal hygiene are appropriate. (CHANTEL FRITZ) Course - Re-evaluation Re-evalutation: 01/06/18 17:10 Given the above history and physical examination we will perform a postvoid residual, test, then perform an MRI of the lumbar spine. We would like to evaluate for any acute cord compression or cauda equina. 01/06/18 17:33 Post void residual was 4 cc. (CHANTEL FRITZ) 01/06/18 22:53 MRI has returned, read as normal. Patient is smiling, appropriate alert feels much better, discharged home. (VANESSA JACOB) - Vital Signs Vital signs: Temp Pulse Resp BP Pulse Ox 97.6 F 78 18 134/86 H 100 01/06/18 16:25 01/06/18 16:25 01/06/18 16:25 01/06/18 16:25 01/06/18 16:25 Discharge - Discharge Clinical Impression: Back pain Qualifiers: Back pain location: low back pain Chronicity: acute Back pain laterality: unspecified Sciatica presence: unspecified whether sciatica present Qualified Code(s): M54.5 - Low back pain Condition: Good Disposition: HOME, SELF-CARE Instructions: Low Back Pain ([facility])
[2018-01-06] MEDS ORDERED: LORAZEPAM 1 MG TABLET ONE (21:37)
[2018-01-06] MEDS ORDERED: LORAZEPAM 1 MG TABLET PO ONE (21:39)
--- NOTE | 2018-01-06 22:36 | RADIOLOGY REPORT (SQ) ---
EXAM DESCRIPTION: MRI LUMBAR SPINE WITHOUT COMPLETED DATE/TIME: 01/06/2018 10:25 pm REASON FOR STUDY: 5, bilateral leg numbness and low back pain COMPARISON: None. TECHNIQUE: Sagittal and Axial imaging includes T1, T2, STIR and gradient echo sequences. Coronal T2/ HASTE imaging. LIMITATIONS: None. FINDINGS: VISUALIZED UPPER ABDOMEN: Limited evaluation. No acute or suspicious findings suggested. SEGMENTATION: No transitional anatomy. The lowest well-developed disc space is labeled L5-S1. ALIGNMENT: Anatomic. VERTEBRAE: Intact. BONE MARROW: Normal. No marrow replacement or reactive changes. DISC SIGNAL: Normal. No significant abnormal signal or loss of height. POSTERIOR ELEMENTS: Generally intact. No pars defect evident. HARDWARE: None in the spine. CORD AND CONUS: Normal in size and signal intensity. Conus at the L1 level. SOFT TISSUES: No aortic aneurysm seen. No bulky retroperitoneal adenopathy or mass. No paraspinal mas s or fluid. L1-L2: No significant spinal stenosis or exit foraminal stenosis. L2-L3: No significant spinal stenosis or exit foraminal stenosis. L3-L4: No significant spinal stenosis or exit foraminal stenosis. L4-L5: No significant spinal stenosis or exit foraminal stenosis. L5-S1: No significant spinal stenosis or exit foraminal stenosis. LOWER THORACIC: Incompletely imaged. No stenosis seen. SACRUM: Visualized upper sacrum intact. OTHER: No other significant findings. IMPRESSION: NORMAL MRI LUMBAR SPINE. TECHNICAL DOCUMENTATION: JOB ID: [id number] [employer]- All Rights Reserved Reading location - IP/workstation name: [email or web address]
[2018-01-06 23:24] VITALS: BP 122/79
== END 2018-01-06 23:22 | disposition home or self-care (01) ==
LOC: ER 16:20
DX: M54.5 Low back pain (principal); M79.604 Pain in right leg; R20.0 Anesthesia of skin; Z87.891 Personal history of nicotine dependence; I10 Essential (primary) hypertension; J45.909 Unspecified asthma, uncomplicated
CPT/HCPCS: 72148; 81025; 99284

== ENCOUNTER 2018-01-12 22:35 | Emergency (ER) | payer MEDICAID ==
[2018-01-12] MEDS ORDERED: ACETAMINOPHEN 325 MG TABLET PO ONE (23:18)
[2018-01-12] MEDS ORDERED: ONDANSETRON 4 MG TAB.RAPDIS PO ONE (23:18)
[2018-01-13] MEDS ORDERED: ONDANSETRON HCL INJ/PF 4 MG/2 ML SDV IV ONE (00:45)
[2018-01-13] MEDS ORDERED: NORMAL SALINE 1000 ML 1,000 ML IV ONE (00:46)
[2018-01-13] MEDS ORDERED: HYDROMORPHONE HCL INJ/PF 2 MG/ML AMPULE IV ONE (00:46)
--- NOTE | 2018-01-13 00:49 | ER Document Report ---
ED Medical Screen (RME) - General Chief Complaint: Abdominal Pain Stated Complaint: ABDOMINAL AND SHOULDER PAIN Time Seen by Provider: 01/13/18 00:45 Mode of Arrival: Ambulatory Information source: Patient Notes: Patient is a 27-year-old female who presents to the ER today for 2 days of left upper quadrant abdominal pain with nausea, vomiting and associated left shoulder pain. She denies any history of pancreatitis, she denies alcohol use, she does not have her gallbladder. She states that her parents have both have pancreatitis but she has never. She denies . She admits to watery diarrhea as well. TRAVEL OUTSIDE OF THE [place] IN LAST 30 DAYS: No - Related Data Allergies/Adverse Reactions: morphine [Morphine] Allergy (Severe, Verified 11/26/17 17:01) Difficulty breathing/itch iodine [Iodine] Allergy (Intermediate, Verified 11/26/17 17:01) RASH latex [Latex] Allergy (Intermediate, Verified 11/26/17 17:01) RASH amoxicillin [Amoxicillin] Allergy (Unknown, Verified 11/26/17 17:01) Hives Penicillins Allergy (Unknown, Verified 11/26/17 17:01) Hives codeine Allergy (Verified 11/26/17 17:01) Hives Past Medical History - General Information source: Patient - Social History Family history: Reviewed & Not Pertinent, Hypertension, Other - copd - Past Medical History Cardiac Medical History: Reports: Hx Hypertension Denies: Hx Heart Attack Pulmonary Medical History: Reports: Hx Asthma Denies: Hx Bronchitis, Hx COPD, Hx Pneumonia Neurological Medical History: Denies: Hx Seizures Renal/ Medical History: Reports: Hx Pelvic Inflammatory Disease. Denies: Hx Peritoneal Dialysis Musculoskeltal Medical History: Denies Hx Arthritis, Reports Hx Musculoskeletal Trauma Psychiatric Medical History: Reports: Hx Depression, Hx Post Traumatic Stress Disorder Denies: Hx Bipolar Disorder Traumatic Medical History: Reports: Hx Fractures - Fractured ankle Past Surgical History: Reports: Hx Cholecystectomy, Hx Oral Surgery - wisdom tooth removal 07/2016, Hx Orthopedic Surgery - right ankle - Immunizations Immunizations up to date: Yes Hx Diphtheria, Pertussis, Tetanus Vaccination: Yes Review of Systems - Review of Systems Gastrointestinal: See HPI Physical Exam - Vital signs Vitals: Temp Pulse Resp BP Pulse Ox 99.4 F 95 20 155/90 H 100 01/12/18 23:09 01/12/18 23:09 01/12/18 23:09 01/12/18 23:09 01/12/18 23:09 - Notes Notes: PHYSICAL EXAMINATION: GENERAL: Pacing, obviously in pain, holding left side, in mild acute distress. ABDOMEN: Soft, left upper quadrant tenderness. No guarding, no rebound Course - Vital Signs Vital signs: Temp Pulse Resp BP Pulse Ox 99.4 F 95 20 155/90 H 100 01/12/18 23:09 01/12/18 23:09 01/12/18 23:09 01/12/18 23:09 01/12/18 23:09
[2018-01-13 01:47] LABS: ALANINE AMINOTRANSFERASE 26 U/L (9-52); ALBUMIN 4.3 g/dL (3.5-5.0); ALKALINE PHOSPHATASE 87 U/L (38-126); ANION GAP 14 (5-19); ASPARTATE AMINO TRANSFERASE 24 U/L (14-36); BILIRUBIN,DIRECT 0.3 mg/dL (0.0-0.4); BILIRUBIN,TOTAL 0.3 mg/dL (0.2-1.3); BLOOD UREA NITROGEN 10 mg/dL (7-20); CALCIUM 9.8 mg/dL (8.4-10.2); CARBON DIOXIDE 26 mmol/L (22-30); CHLORIDE 109 mmol/L (98-107); GLUCOSE 103 mg/dL (75-110); LIPASE 88.9 U/L (23-300); POTASSIUM 4.4 mmol/L (3.6-5.0); SODIUM 149.3 mmol/L (137-145); TOTAL PROTEIN 7.5 g/dL (6.3-8.2)
[2018-01-13 01:56] LABS: ABSOLUTE EOSINOPHILS # (AUTO) 0.1 10^3/uL (0.0-0.6); ABSOLUTE LYMPHOCYTES (AUTO) 2.1 10^3/uL (0.5-4.7); ABSOLUTE MONOCYTES (AUTO) 0.8 10^3/uL (0.1-1.4); ABSOLUTE NEUT (AUTO) 10.2 10^3/uL (1.7-8.2); BASOPHILS % (AUTO) 0.3 % (0-2); EOSINOPHILS % (AUTO) 0.8 % (0-6); HEMATOCRIT 36.1 % (36.0-47.0); HEMOGLOBIN 12.3 g/dL (12.0-15.5); MEAN CORPUSCULAR HEMOGLOBIN 27.8 pg (27.0-33.4); MEAN CORPUSCULAR HGB CONC 34.1 g/dL (32.0-36.0); MEAN CORPUSCULAR VOLUME 82 fl (80-97); MONOCYTES % (AUTO) 6.3 % (3-13); PLATELET COUNT 378 10^3/uL (150-450); RED BLOOD COUNT 4.42 10^6/uL (3.72-5.28); SEGMENTED NEUTROPHILS % (AUTO) 76.6 % (42-78); TOTAL CELLS COUNTED % (AUTO) 100 %; WHITE BLOOD COUNT 13.3 10^3/uL (4.0-10.5)
[2018-01-13 02:21] LABS: AMORPHOUS SEDIMENT,URINE TRACE /HPF; APPEARANCE,URINE CLOUDY; BILIRUBIN,URINE NEGATIVE (NEGATIVE); COLOR,URINE YELLOW; GLUCOSE, URINE NEGATIVE (NEGATIVE); KETONES,URINE NEGATIVE (NEGATIVE); LEUKOCYTE ESTERASE,URINE NEGATIVE (NEGATIVE); NITRITE,URINE NEGATIVE (NEGATIVE); PROTEIN,URINE NEGATIVE (NEGATIVE); URINE SPECIFIC GRAVITY 1.018; UROBILINOGEN,URINE NEGATIVE mg/dL (<2.0)
[2018-01-13] MEDS ORDERED: LIDOCAINE 2% VISCOUS SOLN 20 ML UDCUP PO ONE (02:27)
[2018-01-13] MEDS ORDERED: METOCLOPRAMIDE HCL ORAL SOLN 10 MG/10 ML UDCUP PO ONE (02:27)
[2018-01-13] MEDS ORDERED: MAG HYDROX/AL HYDROX/SIMETH SUSP 30 ML UDCUP PO ONE (02:27)
[2018-01-13] MEDS ORDERED: FAMOTIDINE 20 MG TABLET PO ONE (02:27)
--- NOTE | 2018-01-13 02:46 | ER Document Report ---
ED General - General Chief Complaint: Abdominal Pain Stated Complaint: ABDOMINAL AND SHOULDER PAIN Time Seen by Provider: 01/13/18 00:45 Mode of Arrival: Ambulatory TRAVEL OUTSIDE OF THE [place] IN LAST 30 DAYS: No - HPI Patient complains to provider of: Abdominal pain Notes: Patient coming in for epigastric left upper quadrant abdominal pain worsening after she eats that radiates into her shoulder. Patient states similar pain when she had her gallbladder attacks. Patient denies any nausea vomiting diarrhea denies any trauma. Upon my evaluation patient is resting comfortably with her at bedside. Patient states last time she has of the knee was a physician which we did exacerbate her pain. - Related Data Allergies/Adverse Reactions: morphine [Morphine] Allergy (Severe, Verified 01/13/18 02:07) Difficulty breathing/itch iodine [Iodine] Allergy (Intermediate, Verified 01/13/18 02:07) RASH latex [Latex] Allergy (Intermediate, Verified 01/13/18 02:07) RASH amoxicillin [Amoxicillin] Allergy (Unknown, Verified 01/13/18 02:07) Hives Penicillins Allergy (Unknown, Verified 01/13/18 02:07) Hives codeine Allergy (Verified 01/13/18 02:07) Hives Past Medical History - General Information source: Patient - Social History Smoking Status: Former Smoker Chew tobacco use (# tins/day): No Frequency of alcohol use: None Drug Abuse: None Family History: CAD, COPD, CVA, DM, Hyperlipidemia, Hypertension. denies: Arthritis, Malignancy, Thyroid Disfunction Patient has suicidal ideation: No Patient has homicidal ideation: No - Past Medical History Cardiac Medical History: Reports: Hx Hypertension Denies: Hx Heart Attack Pulmonary Medical History: Reports: Hx Asthma Denies: Hx Bronchitis, Hx COPD, Hx Pneumonia Neurological Medical History: Denies: Hx Seizures Renal/ Medical History: Reports: Hx Pelvic Inflammatory Disease. Denies: Hx Peritoneal Dialysis Musculoskeltal Medical History: Denies Hx Arthritis, Reports Hx Musculoskeletal Trauma Psychiatric Medical History: Reports: Hx Depression, Hx Post Traumatic Stress Disorder Denies: Hx Bipolar Disorder Traumatic Medical History: Reports: Hx Fractures - Fractured ankle Past Surgical History: Reports: Hx Cholecystectomy, Hx Oral Surgery - wisdom tooth removal 07/2016, Hx Orthopedic Surgery - right ankle - Immunizations Immunizations up to date: Yes Hx Diphtheria, Pertussis, Tetanus Vaccination: Yes Review of Systems - Review of Systems Constitutional: No symptoms reported EENT: No symptoms reported Cardiovascular: No symptoms reported Respiratory: No symptoms reported Gastrointestinal: Abdominal pain Genitourinary: No symptoms reported Female Genitourinary: No symptoms reported Musculoskeletal: No symptoms reported Skin: No symptoms reported Hematologic/Lymphatic: No symptoms reported Neurological/Psychological: No symptoms reported -: Yes All other systems reviewed and negative Physical Exam - Vital signs Vitals: Temp Pulse Resp BP Pulse Ox 99.4 F 95 20 155/90 H 100 01/12/18 23:09 01/12/18 23:09 01/12/18 23:09 01/12/18 23:09 01/12/18 23:09 Interpretation: Normal - General General appearance: Appears well, Alert - HEENT Head: Normocephalic, Atraumatic Eyes: Normal Pupils: PERRL - Respiratory Respiratory status: No respiratory distress Chest status: Nontender Breath sounds: Normal Chest palpation: Normal - Cardiovascular Rhythm: Regular Heart sounds: Normal auscultation Murmur: No - Abdominal Inspection: Normal Distension: No distension Bowel sounds: Normal Tenderness: Nontender Organomegaly: No organomegaly - Back Back: Normal, Nontender - Extremities General upper extremity: Normal inspection, Nontender, Normal color, Normal ROM , Normal temperature General lower extremity: Normal inspection, Nontender, Normal color, Normal ROM , Normal temperature, Normal weight bearing. No: Rashida's sign - Neurological Neuro grossly intact: Yes Cognition: Normal Orientation: AAOx4 Celi Coma Scale Eye Opening: Spontaneous Celi Coma Scale Verbal: Oriented [place] Coma Scale Motor: Obeys Commands Celi Coma Scale Total: 15 Speech: Normal Motor strength normal: LUE, RUE, LLE, RLE Sensory: Normal - Psychological Associated symptoms: Normal affect, Normal mood - Skin Skin Temperature: Warm Skin Moisture: Dry Skin Color: Normal Course - Re-evaluation Re-evalutation: 01/13/18 03:53 His laboratory studies not revealing significant pathology. Patient's symptoms were consistent with a gastritis. Patient was given a GI cocktail initially did order a acute abdominal series to evaluate for any underlying abdominal pathology evaluate for free air although the patient's abdomen soft nontender patient refusing x-ray which I think is appropriate this time. Patient will be discharged home - Vital Signs Vital signs: Temp Pulse Resp BP Pulse Ox 98.1 F 75 16 133/90 H 99 01/13/18 02:48 01/13/18 02:48 01/13/18 02:48 01/13/18 02:48 01/13/18 02:48 - Laboratory Result Diagrams: 01/13/18 01:49 01/13/18 01:20 Laboratory results interpreted by me: 01/13/18 01/13/18 01:20 01:49 WBC 13.3 H Absolute Neutrophils 10.2 H Sodium 149.3 H Chloride 109 H Discharge - Discharge Clinical Impression: Upper abdominal pain Condition: Good Disposition: HOME, SELF-CARE Instructions: Abdominal Pain ([facility]), Gastritis ([facility]) Additional Instructions: Your laboratory studies today did not show any significant pathology. No signs of infection requiring antibiotics no signs of any acute surgical needs. Your physical exam also does not show any signs of significant pathology requiring antibiotics or emergent surgery. Do believe her symptoms are caused by inflammation of the stomach called gastritis. We will treat gastritis with medication called omeprazole. We will also give you nausea medication, Reglan and pain medication called Bentyl to also help out with your more likely underlying inflammation of her stomach. Return to ER symptoms worsen Prescriptions: Dicyclomine HCl [Bentyl 20 mg Tablet] 20 mg PO QID #30 tablet Metoclopramide HCl [Reglan] 5 mg PO Q6 #30 tablet Omeprazole 20 mg PO DAILY #30 capsule.dr Referrals: YOHAN LOGAN MD [Primary Care Provider] - Follow up as needed
[2018-01-13 02:57] VITALS: BP 133/90
== END 2018-01-13 02:57 | disposition home or self-care (01) ==
LOC: ER 22:35
DX: R10.13 Epigastric pain (principal); R10.12 Left upper quadrant pain; I10 Essential (primary) hypertension; J45.909 Unspecified asthma, uncomplicated; Z88.5 Allergy status to narcotic agent; Z91.040 Latex allergy status; Z88.0 Allergy status to penicillin; Z90.49 Acquired absence of other specified parts of digestive tract; Z87.891 Personal history of nicotine dependence
CPT/HCPCS: 99284; 36415; 83690; 84703; 85025; 80053; 81001; J3490 ×5; S0119

== ENCOUNTER 2018-01-21 09:59 | Emergency (ER) | payer MEDICAID ==
[2018-01-21] MEDS ORDERED: IBUPROFEN 600 MG TABLET PO ONE (10:27)
--- NOTE | 2018-01-21 10:59 | RADIOLOGY REPORT (SQ) ---
EXAM DESCRIPTION: WRIST RIGHT 3 VIEWS COMPLETED DATE/TIME: 01/21/2018 10:50 am REASON FOR STUDY: pain fall injury COMPARISON: None. NUMBER OF VIEWS: Three views. TECHNIQUE: AP, lateral, and oblique radiographic images acquired of the right wrist. LIMITATIONS: None. FINDINGS: MINERALIZATION: Normal. BONES: No acute fracture or dislocation. No worrisome bone lesions. Normal alignment. SOFT TISSUES: No soft tissue swelling. No foreign body. OTHER: No other significant finding. IMPRESSION: NEGATIVE STUDY OF THE RIGHT WRIST. NO RADIOGRAPHIC EVIDENCE OF ACUTE INJURY. TECHNICAL DOCUMENTATION: JOB ID: [id number] [employer]- All Rights Reserved Reading location - IP/workstation name: [email or web address]
--- NOTE | 2018-01-21 11:20 | ER Document Report ---
ED Extremity Problem, Upper - General Chief Complaint: Arm Pain Stated Complaint: WRIST PAIN Time Seen by Provider: 01/21/18 10:24 Mode of Arrival: Ambulatory Information source: Patient Notes: 27-year-old female presented ED for complaint of right wrist pain after she tripped over her dog about 9 AM today. She states she hurt her right wrist and arm earlier in the week and this is made her much worse. She has full range of motion to the all fingers and the wrist. Is alert and oriented speaking in full sentences respirations regular and unlabored and walks with a even steady gait. TRAVEL OUTSIDE OF THE [place] IN LAST 30 DAYS: No - HPI Patient complains to provider of: Right, Wrist Onset: This morning Recent injury: Possibly Where: Outdoors Quality of pain: Burning, Sharp Severity of pain: Moderate Pain Level: 3 Context: Fall Associated symptoms: None Exacerbated by: Movement Relieved by: Rest, Positioning Similar symptoms previously: Yes Recently seen / treated by doctor: No - Related Data Allergies/Adverse Reactions: morphine [Morphine] Allergy (Severe, Verified 01/13/18 02:07) Difficulty breathing/itch iodine [Iodine] Allergy (Intermediate, Verified 01/13/18 02:07) RASH latex [Latex] Allergy (Intermediate, Verified 01/13/18 02:07) RASH amoxicillin [Amoxicillin] Allergy (Unknown, Verified 01/13/18 02:07) Hives Penicillins Allergy (Unknown, Verified 01/13/18 02:07) Hives codeine Allergy (Verified 01/13/18 02:07) Hives Past Medical History - General Information source: Patient - Social History Smoking Status: Former Smoker Cigarette use (# per day): No Chew tobacco use (# tins/day): No Smoking Education Provided: No Frequency of alcohol use: None Drug Abuse: None Lives with: Spouse/Significant other Family History: CAD, COPD, CVA, DM, Hyperlipidemia, Hypertension. denies: Arthritis, Malignancy, Thyroid Disfunction Patient has suicidal ideation: No Patient has homicidal ideation: No - Past Medical History Cardiac Medical History: Reports: Hx Hypertension Pulmonary Medical History: Reports: Hx Asthma EENT Medical History: Reports: None Neurological Medical History: Reports: None Endocrine Medical History: Reports: None Renal/ Medical History: Reports: None, Hx Pelvic Inflammatory Disease Malignancy Medical History: Reports: None GI Medical History: Reports: None Musculoskeltal Medical History: Reports Hx Musculoskeletal Trauma Skin Medical History: Reports None Psychiatric Medical History: Reports: Hx Depression, Hx Post Traumatic Stress Disorder Traumatic Medical History: Reports: Hx Fractures - Fractured ankle Infectious Medical History: Reports: None Past Surgical History: Reports: Hx Cholecystectomy, Hx Oral Surgery - wisdom tooth removal 07/2016, Hx Orthopedic Surgery - right ankle - Immunizations Immunizations up to date: Yes Hx Diphtheria, Pertussis, Tetanus Vaccination: Yes Review of Systems - Review of Systems Constitutional: No symptoms reported EENT: No symptoms reported Cardiovascular: No symptoms reported Respiratory: No symptoms reported Gastrointestinal: No symptoms reported Genitourinary: No symptoms reported Female Genitourinary: No symptoms reported Musculoskeletal: Other - Right wrist pain Skin: No symptoms reported Hematologic/Lymphatic: No symptoms reported Neurological/Psychological: No symptoms reported -: Yes All other systems reviewed and negative Physical Exam - Vital signs Vitals: Temp Pulse Resp BP Pulse Ox 98.5 F 53 L 16 149/92 H 100 01/21/18 10:03 01/21/18 10:03 01/21/18 10:03 01/21/18 10:03 01/21/18 10:03 Interpretation: Normal - General General appearance: Appears well, Alert - HEENT Head: Normocephalic, Atraumatic Eyes: Normal Pupils: PERRL - Respiratory Respiratory status: No respiratory distress Chest status: Nontender Breath sounds: Normal Chest palpation: Normal - Cardiovascular Rhythm: Regular Heart sounds: Normal auscultation Murmur: No - Abdominal Inspection: Normal Distension: No distension Bowel sounds: Normal Tenderness: Nontender Organomegaly: No organomegaly - Back Back: Normal, Nontender - Extremities General upper extremity: Normal inspection, Normal color, Normal ROM, Normal temperature General lower extremity: Normal inspection, Nontender, Normal color, Normal ROM , Normal temperature, Normal weight bearing. No: Rashida's sign Wrist: Tender, Limited ROM - Was range of motion but has full range of motion. No: Abrasion, Axial load of thumb pain, Deformity, Dislocation, Ecchymosis, Instability, Laceration, Navicular tenderness Hand: Tender, No evidence of human bite, No evidence of FB. No: Swelling - Neurological Neuro grossly intact: Yes Cognition: Normal Orientation: AAOx4 Celi Coma Scale Eye Opening: Spontaneous Celi Coma Scale Verbal: Oriented [place] Coma Scale Motor: Obeys Commands [place] Coma Scale Total: 15 Speech: Normal Motor strength normal: LUE, RUE, LLE, RLE Sensory: Normal - Psychological Associated symptoms: Normal affect, Normal mood - Skin Skin Temperature: Warm Skin Moisture: Dry Skin Color: Normal Course - Re-evaluation Re-evalutation: 01/21/18 11:18 X-ray discussed with patient and a cock-up splint will be applied to her arm and she will be discharged home with a sling and instructions to follow-up with orthopedics. - Vital Signs Vital signs: Temp Pulse Resp BP Pulse Ox 98.5 F 53 L 16 149/92 H 100 01/21/18 10:03 01/21/18 10:03 01/21/18 10:03 01/21/18 10:03 01/21/18 10:03 - Diagnostic Test Radiology reviewed: Image reviewed, Reports reviewed Procedures - Immobilization Right Wrist Time completed: 11:18 Immobilizer type: Cock-up, Sling Performed by: PCT Post-Proc Neuro Vasc Exam: Normal Alignment checked and good: Yes Discharge - Discharge Clinical Impression: Right wrist sprain Qualifiers: Encounter type: initial encounter Qualified Code(s): S63.501A - Unspecified sprain of right wrist, initial encounter Condition: Stable Disposition: HOME, SELF-CARE Additional Instructions: SPRAIN: Your injury is a sprain. A sprain results from stretching or tearing of the ligaments, usually from a twisting injury. The ligaments will require time and protection in order to heal properly. Many sprains are quite disabling and should be taken seriously. The usual initial treatment of sprains is cold packs, elevation, and rest of the injured area. Your physician has assessed the seriousness of your ligament injury, and has outlined a treatment plan. Understand that this treatment may change, depending on how you progress. If a re-examination was recommended, it is important that you follow up as instructed. Call the doctor any time if there is severe pain, numbness, or loss of function in the injured area. Sling to be Used You are to use a sling. This is to rest the area, and to prevent it from hanging downward. Use this sling for at least 48 hours (or longer if so instructed by the doctor). Some types of splints will break if not supported by the sling, so the sling must be used as long as the splint. Ice can be placed inside the sling over the injured area. Once you remove the sling, you should not encounter pain when you use the arm and hand. If you do feel pain beneath the cast or splint, you must continue use of the sling. SPLINT PRECAUTIONS: A splint has been placed. This will protect the area while healing begins. Your problem does NOT normally require a cast. It MUST, however, be held still! Keep the splint on ALL THE TIME until instructed to remove it by the doctor. As you begin to use the area, be careful. You shouldn't do anything which causes discomfort -- you may disturb the injury even with the splint in place. After the initial period of rest and elevation, if splint does not prevent pain when you move, come back. You may require placement of a different splint , or a cast. If there is unexpected severe pain, or numbness, discoloration, or swelling beyond the splint, you should return at once. If you feel that the splint has broken or become loose, come back. ICE & ELEVATION: Apply ice packs frequently against the painful area. Many different schedules are recommended, such as "20 minutes on, 20 minutes off" or "one hour ice, two hours rest." If you need to work, you may need to go longer between ice treatments. You should plan to have the area ice packed AT LEAST one- fourth of the time. The ice should be applied over the wrap, tape, or splint, or over a layer of cloth -- not directly against the skin. Some ice bags have a built-in cloth and can be put directly on the skin. Your injured part should be elevated as much as possible over the next 48 hours. Try to keep the injury above the level of the heart. Avoid use of the injured area. Elevation and rest will decrease the swelling. USE OF [id number] IBUPROFEN: Ibuprofen (Advil, Nuprin, Medipren, Motrin IB) is a medication for fever and pain control. In addition, it has anti- inflammatory effects which may be beneficial, especially in the treatment of injuries. It's best to take ibuprofen with food. Persons with ulcer disease or allergy to aspirin should notify their physician of this before taking ibuprofen. Ibuprofen can be given every four to six hours, for a total of four doses daily. Age Pain or fever dose Antiinflammatory dose 6-8 yr 200 mg (1 tab) 200 mg (1 tab) 9-11 yr 200 mg (1 tab) 200-400 mg (1-2 tab) 11-14 yr 200-400 mg (1-2 tab) 400 mg (2 tab) 15-adult 400 mg (2 tab) 600 mg (3 tab) FOLLOW-UP CARE: If you have been referred to a physician for follow-up care, call the physician s office for an appointment as you were instructed or within the next two days. If you experience worsening or a significant change in your symptoms, notify the physician immediately or return to the Emergency Department at any time for re-evaluation. Forms: Elevated Blood Pressure Referrals: KALEB RODRIGES FNP-C [Primary Care Provider] - Follow up as needed MEGHAN LOPEZ MD [ACTIVE STAFF] - Follow up as needed
[2018-01-21 11:27] VITALS: BP 133/85
== END 2018-01-21 11:26 | disposition home or self-care (01) ==
LOC: ER 09:59
DX: S63.501A Unspecified sprain of right wrist, initial encounter (principal); M25.531 Pain in right wrist; W01.0XXA Fall on same level from slipping, tripping and stumbling without subsequent striking against object, initial encounter; I10 Essential (primary) hypertension; J45.909 Unspecified asthma, uncomplicated; Z88.5 Allergy status to narcotic agent; Z91.040 Latex allergy status; Z88.0 Allergy status to penicillin; Z87.891 Personal history of nicotine dependence
CPT/HCPCS: 99283; 73110; L3908; J3490

== ENCOUNTER 2018-01-29 17:04 | Emergency (ER) | payer MEDICAID ==
[2018-01-29 17:46] VITALS: BP 140/90
[2018-01-29] MEDS ORDERED: ACETAMINOPHEN 325 MG TABLET PO ONE (17:55)
--- NOTE | 2018-01-29 17:57 | ER Document Report ---
ED ENT - General Chief Complaint: Fever Stated Complaint: FEVER Time Seen by Provider: 01/29/18 17:22 Mode of Arrival: Ambulatory Information source: Patient Notes: 37-year-old female presented ED for complaint of cough cold congestion and low- grade fever. She states she was just seen by primary care doctor given steroid shot and antivirals for abscess ulcers. She states they are improving but she is still having some body aches and temperatures of 99.2. She states she does have a nasal congestion running in a nonproductive cough. TRAVEL OUTSIDE OF THE [place] IN LAST 30 DAYS: No - HPI Patient complains to provider of: Nose problem, Other - Sore throat Onset: Last week Onset/Duration: Intermittent Quality of pain: Achy Severity: None Pain Level: Denies Context: Recent Illness Location of pain: Nose, Sinus, Throat Associated symptoms: Fever, Runny nose, Sinus drainage, Sore throat, Other - Body aches Similar symptoms previously: Yes Recently seen / treated by doctor: Yes - Related Data Allergies/Adverse Reactions: morphine [Morphine] Allergy (Severe, Verified 01/29/18 17:08) Difficulty breathing/itch iodine [Iodine] Allergy (Intermediate, Verified 01/29/18 17:08) RASH latex [Latex] Allergy (Intermediate, Verified 01/29/18 17:08) RASH amoxicillin [Amoxicillin] Allergy (Unknown, Verified 01/29/18 17:08) Hives Penicillins Allergy (Unknown, Verified 01/29/18 17:08) Hives codeine Allergy (Verified 01/29/18 17:08) Hives Past Medical History - General Information source: Patient - Social History Smoking Status: Former Smoker Cigarette use (# per day): No Chew tobacco use (# tins/day): No Smoking Education Provided: No Frequency of alcohol use: None Drug Abuse: None Lives with: Family Family History: CAD, COPD, CVA, DM, Hyperlipidemia, Hypertension Patient has suicidal ideation: No Patient has homicidal ideation: No - Past Medical History Cardiac Medical History: Reports: Hx Hypertension Pulmonary Medical History: Reports: Hx Asthma EENT Medical History: Reports: Throat - aphthous ulcers Neurological Medical History: Reports: None Endocrine Medical History: Reports: None Renal/ Medical History: Reports: Hx Pelvic Inflammatory Disease Malignancy Medical History: Reports: None GI Medical History: Reports: None Musculoskeltal Medical History: Reports Hx Musculoskeletal Trauma Skin Medical History: Reports None Psychiatric Medical History: Reports: Hx Depression, Hx Post Traumatic Stress Disorder Traumatic Medical History: Reports: Hx Fractures - Fractured ankle Infectious Medical History: Reports: None Past Surgical History: Reports: Hx Cholecystectomy, Hx Oral Surgery - wisdom tooth removal 07/2016, Hx Orthopedic Surgery - right ankle - Immunizations Immunizations up to date: Yes Hx Diphtheria, Pertussis, Tetanus Vaccination: Yes Review of Systems - Review of Systems Constitutional: Fever, Recent illness EENT: Nose discharge, Sinus discharge, Throat pain Cardiovascular: No symptoms reported Respiratory: No symptoms reported, Cough Gastrointestinal: No symptoms reported Genitourinary: No symptoms reported Female Genitourinary: No symptoms reported Musculoskeletal: Muscle pain Skin: No symptoms reported Hematologic/Lymphatic: No symptoms reported Neurological/Psychological: No symptoms reported -: Yes All other systems reviewed and negative Physical Exam - Vital signs Vitals: Temp Pulse BP Pulse Ox 99.5 F 127 H 170/88 H 98 01/29/18 17:17 01/29/18 17:17 01/29/18 17:17 01/29/18 17:17 Interpretation: Normal - General General appearance: Appears well, Alert - HEENT Head: Normocephalic, Atraumatic Eyes: Normal Pupils: PERRL Ears: Normal External canal: Normal Tympanic membrane: Normal Sinus: Normal Nasal: Purulent discharge, Swelling Mouth/Lips: Normal Mucous membranes: Normal Pharynx: Post nasal drainage. No: Erythema, Exudate, Peritonsillar abscess, Tonsillar hypertrophy, Uvular edema, Potential airway comprom. Neck: Normal. No: Anterior cervical chain - Respiratory Respiratory status: No respiratory distress Chest status: Nontender Breath sounds: Nonproductive cough Chest palpation: Normal - Cardiovascular Rhythm: Regular Heart sounds: Normal auscultation Murmur: No - Abdominal Inspection: Normal Distension: No distension Bowel sounds: Normal Tenderness: Nontender Organomegaly: No organomegaly - Back Back: Normal, Nontender - Extremities General upper extremity: Normal inspection, Nontender, Normal color, Normal ROM , Normal temperature General lower extremity: Normal inspection, Nontender, Normal color, Normal ROM , Normal temperature, Normal weight bearing. No: Rashida's sign - Neurological Neuro grossly intact: Yes Cognition: Normal Orientation: AAOx4 Celi Coma Scale Eye Opening: Spontaneous Celi Coma Scale Verbal: Oriented [place] Coma Scale Motor: Obeys Commands Celi Coma Scale Total: 15 Speech: Normal Motor strength normal: LUE, RUE, LLE, RLE Sensory: Normal - Psychological Associated symptoms: Normal affect, Normal mood - Skin Skin Temperature: Warm Skin Moisture: Dry Skin Color: Normal Course - Re-evaluation Re-evalutation: 01/29/18 18:22 She was treated with Tylenol emergency room for her upper respiratory infection. She just recently seen by her primary doctor for aphthous ulcers and treated with antivirals and steroids. Patient was given instructions on upper respiratory infection instructed to follow-up with her primary doctor. After performing a Medical Screening Examination, I estimate there is LOW risk for ACUTE CORONARY SYNDROME, RESPIRATORY FAILURE, SEPSIS OR MENINGITIS, thus I consider the discharge disposition reasonable. I have reevaluated this patient multiple times and no significant life threatening changes are noted. The patient and I have discussed the diagnosis and risks, and we agree with discharging home with close follow-up. We also discussed returning to the Emergency Department immediately if new or worsening symptoms occur. We have discussed the symptoms which are most concerning (e.g., changing or worsening pain, trouble swallowing or breathing, neck stiffness, fever) that necessitate immediate return. - Vital Signs Vital signs: Temp Pulse Resp BP Pulse Ox 99.2 F 94 140/90 H 98 01/29/18 17:44 01/29/18 17:44 01/29/18 17:44 01/29/18 17:17 Discharge - Discharge Clinical Impression: URI (upper respiratory infection) Qualifiers: URI type: unspecified URI Qualified Code(s): J06.9 - Acute upper respiratory infection, unspecified Condition: Stable Disposition: HOME, SELF-CARE Additional Instructions: UPPER RESPIRATORY ILLNESS: You have a viral infection of the respiratory passages -- a "cold." This common infection causes nasal congestion, drainage, and often sore throat and cough. It is highly contagious. The disease usually lasts about 10 to 14 days. There is no "cure" for the viral infection -- it must run its course. If there is a complication, such as bacterial infection in the nose, sinuses, middle ear, or bronchial tubes, antibiotics may be required. The antibiotics won't affect the virus. Drink plenty of fluids. A humidifier may help. An expectorant medication or decongestant may make you more comfortable. Use acetaminophen or ibuprofen for fever or aches. See the doctor if fever persists over two days, if there is any significant worsening of your symptoms, or if you simply fail to improve as expected. DECONGESTANT MEDICATION: A decongestant medicine has been suggested. Often this medicine is combined in the same tablet with an antihistamine or expectorant. This type of medicine is helpful in treating a bad cold or sinus condition, as well as in treatment of the nasal congestion of hay fever. It is not of much benefit for lung infections. Decongestant medicines are related to stimulants. They can cause an increase in blood pressure and heart rate. Persons with heart disease and high blood pressure should not take decongestants without discussing this with the physician. If you develop palpitations, chest pain, headache, or tremors, stop the medicine and consult your physician. COUGH-SUPPRESSANT & EXPECTORANT MEDICATION: You are to use a cough medication as needed for relief of symptoms. This medicine is a combination of an expectorant (to make the mucous thinner and more easily "coughed up") and a cough suppressant (to reduce the frequency of coughing). The cough-suppressant medicine is related to narcotics. You may experience mild nausea and sleepiness. Some patients who are very sensitive to narcotics may have stomach pain from this medicine. Taking the medicine with food reduces these side effects. Do not drive or work with machinery until you know how this medicine affects you. The expectorant should have no side effects. Iodine-containing expectorants (such as organidin) should not be taken by persons with active thyroid disease unless approved by your doctor. Call the doctor if you develop shortness of breath, hives, rash, itching, lightheadedness, or severe nausea and vomiting. USE OF ACETAMINOPHEN (Tylenol): Acetaminophen may be taken for pain relief or fever control. It's much safer than aspirin, offering a wider range of "safe" dosages. It is safe during . Some brand names are Tylenol, Panadol, Datril, Anacin 3, Tempra, and Liquiprin. Acetaminophen can be repeated every four hours. The following are maximum recommended dosages: >89 pounds or adults 650 mg to 900 mg Acetaminophen can be repeated every four hours. Maximum dose not to exceed 4000 mg a day. FOLLOW-UP CARE: If you have been referred to a physician for follow-up care, call the physician s office for an appointment as you were instructed or within the next two days. If you experience worsening or a significant change in your symptoms, notify the physician immediately or return to the Emergency Department at any time for re-evaluation. Forms: Elevated Blood Pressure, Return to Work Referrals: KALEB RODRIGES, LIZBET-C [Primary Care Provider] - Follow up as needed
== END 2018-01-29 18:08 | disposition home or self-care (01) ==
LOC: ER 17:04
DX: J06.9 Acute upper respiratory infection, unspecified (principal); R50.9 Fever, unspecified; R05 Cough; R09.81 Nasal congestion; M79.1 Myalgia; J02.9 Acute pharyngitis, unspecified; R09.89 Other specified symptoms and signs involving the circulatory and respiratory systems; Z87.891 Personal history of nicotine dependence; I10 Essential (primary) hypertension; J45.909 Unspecified asthma, uncomplicated
CPT/HCPCS: 99283; J3490

== ENCOUNTER 2018-02-06 12:58 | Emergency (ER) | payer OTHER, MEDICAID ==
[2018-02-06 13:07] VITALS: BP 134/95
[2018-02-06] MEDS ORDERED: LIDOCAINE 2% VISCOUS SOLN 20 ML UDCUP PO ONE (13:53)
--- NOTE | 2018-02-06 13:55 | ER Document Report ---
ED Oral Problem - General Chief Complaint: Toothache Stated Complaint: TOOTH PAIN Time Seen by Provider: 02/06/18 13:26 Mode of Arrival: Ambulatory Information source: Patient Notes: 27-year-old female presented ED for complaint of dental pain. She states she went to the dentist and they are planning to fix tooth #14 2 and 21. She states they treated her with Percocet and Z-Ady. She states the Percocet is made her sweat and very itchy and she cannot take it. She states she just wanted something like some viscous lidocaine for the discomfort until she follows up with the dentist to have her teeth repaired. Patient is alert and oriented respirations regular and unlabored speaking in full sentences no difficulty swallowing patient walking with a even steady gait. TRAVEL OUTSIDE OF THE [place] IN LAST 30 DAYS: No - HPI Patient complains to provider of: Toothache Quality of pain: Pressure, Sharp Severity: Moderate Pain Level: 3 Associated symptoms: Toothache Worsened by: Cold Relieved by: Nothing Similar symptoms previously: Yes Recently seen / treated by doctor/dentist: Yes - Related Data Allergies/Adverse Reactions: morphine [Morphine] Allergy (Severe, Verified 02/06/18 12:59) Difficulty breathing/itch iodine [Iodine] Allergy (Intermediate, Verified 02/06/18 12:59) RASH latex [Latex] Allergy (Intermediate, Verified 02/06/18 12:59) RASH amoxicillin [Amoxicillin] Allergy (Unknown, Verified 02/06/18 12:59) Hives Penicillins Allergy (Unknown, Verified 02/06/18 12:59) Hives acetaminophen [From Percocet] Allergy (Verified 02/06/18 13:56) Sweats codeine Allergy (Verified 02/06/18 12:59) Hives oxycodone [From Percocet] Allergy (Verified 02/06/18 13:56) Sweats Past Medical History - General Information source: Patient - Social History Smoking Status: Former Smoker Cigarette use (# per day): No Chew tobacco use (# tins/day): No Smoking Education Provided: No Frequency of alcohol use: None Drug Abuse: None Lives with: Family Family History: CAD, COPD, CVA, DM, Hyperlipidemia, Hypertension Patient has suicidal ideation: No Patient has homicidal ideation: No - Past Medical History Cardiac Medical History: Reports: Hx Hypertension Pulmonary Medical History: Reports: Hx Asthma EENT Medical History: Reports: None Neurological Medical History: Reports: None Endocrine Medical History: Reports: None Renal/ Medical History: Reports: Hx Pelvic Inflammatory Disease Malignancy Medical History: Reports: None GI Medical History: Reports: None Musculoskeltal Medical History: Reports Hx Musculoskeletal Trauma Skin Medical History: Reports None Psychiatric Medical History: Reports: Hx Depression, Hx Post Traumatic Stress Disorder Traumatic Medical History: Reports: Hx Fractures - Fractured ankle Infectious Medical History: Reports: None Past Surgical History: Reports: Hx Cholecystectomy, Hx Oral Surgery - wisdom tooth removal 07/2016, Hx Orthopedic Surgery - right ankle - Immunizations Immunizations up to date: Yes Hx Diphtheria, Pertussis, Tetanus Vaccination: Yes Review of Systems - Review of Systems Constitutional: No symptoms reported EENT: Mouth pain, Dental problem Cardiovascular: No symptoms reported Respiratory: No symptoms reported Gastrointestinal: No symptoms reported Genitourinary: No symptoms reported Female Genitourinary: No symptoms reported Musculoskeletal: No symptoms reported Skin: No symptoms reported Hematologic/Lymphatic: No symptoms reported Neurological/Psychological: No symptoms reported -: Yes All other systems reviewed and negative Physical Exam - Vital signs Vitals: Temp Pulse Resp BP Pulse Ox 98.5 F 67 18 134/95 H 97 02/06/18 13:06 02/06/18 13:06 02/06/18 13:06 02/06/18 13:06 02/06/18 13:06 Interpretation: Normal - General General appearance: Appears well, Alert - HEENT Head: Normocephalic, Atraumatic Eyes: Normal Pupils: PERRL Ears: Normal External canal: Normal Tympanic membrane: Normal Sinus: Normal Nasal: Normal Mouth/Lips: Caries Mucous membranes: Normal Teeth diagram: 1 - Multiple cavities throughout the mouth with gingivitis. Dentist are planning to fix tooth 14 2 and 21 Pharynx: Normal Neck: Normal - Respiratory Respiratory status: No respiratory distress Chest status: Nontender Breath sounds: Normal Chest palpation: Normal - Cardiovascular Rhythm: Regular Heart sounds: Normal auscultation Murmur: No - Abdominal Inspection: Normal Distension: No distension Bowel sounds: Normal Tenderness: Nontender Organomegaly: No organomegaly - Back Back: Normal, Nontender - Extremities General upper extremity: Normal inspection, Nontender, Normal color, Normal ROM , Normal temperature General lower extremity: Normal inspection, Nontender, Normal color, Normal ROM , Normal temperature, Normal weight bearing. No: Rashida's sign - Neurological Neuro grossly intact: Yes Cognition: Normal Orientation: AAOx4 Celi Coma Scale Eye Opening: Spontaneous [place] Coma Scale Verbal: Oriented [place] Coma Scale Motor: Obeys Commands Celi Coma Scale Total: 15 Speech: Normal Motor strength normal: LUE, RUE, LLE, RLE Sensory: Normal - Psychological Associated symptoms: Normal affect, Normal mood - Skin Skin Temperature: Warm Skin Moisture: Dry Skin Color: Normal Course - Re-evaluation Re-evalutation: 02/06/18 16:00 Patient was treated with viscous lidocaine for her dental pain. She has an appointment to follow-up with the dentist to have these teeth repaired. Patient stated that is all she wanted she did want that her records should state that she is allergic to Percocet because they make her itch and sweat. - Vital Signs Vital signs: Temp Pulse Resp BP Pulse Ox 98.5 F 67 18 134/95 H 97 02/06/18 13:06 02/06/18 13:06 02/06/18 13:06 02/06/18 13:06 02/06/18 13:06 Discharge - Discharge Clinical Impression: Pain due to dental caries Condition: Stable Disposition: HOME, SELF-CARE Additional Instructions: TOOTHACHE: Your pain is due to dental decay. The tooth must be repaired in order for you to feel better. You will, therefore, be referred to a dentist. We do not have dentists on the staff at [facility]. Severe swelling or drainage around a tooth usually means a dental abscess. This also requires evaluation and treatment by the dentist, but antibiotics may be prescribed while awaiting dental treatment. You should be rechecked immediately if you develop major swelling of the face, increasing pain, a lump in the jaw or gums, headache, difficulty swallowing, or fever. You have seen your dentist and have an appointment to have your teeth fixed by the dentist. He states that the dentist gave you Percocet and it has made you itch and sweat. You will be given a syringe with viscous lidocaine to apply a small amount to your finger and apply it to the tooth and gums surrounding the tooth it is painful. You can do this every 1-2 hours until you return to the dentist. Continue the antibiotics that they have given you. If you gargle with warm salt and soda often this will also help with your dental pain. 1 quart of water 1 tablespoon of salt 1 teaspoon of baking soda Mixed 3 ingredients together and boil for 1 minute Placed in a covered quart jar Use 1/2 ounce of cold solution to gargle 3 times a day FOLLOW-UP CARE: You have been referred for follow-up care to the dentists listed below. Call the dentists office for an appointment as you were instructed or within the next two days. If you experience worsening or a significant change in your symptoms, notify the physician immediately or return to the Emergency Department at any time for re-evaluation. Forms: Elevated Blood Pressure Referrals: KALEB RODRIGES FNP-C [Primary Care Provider] - Follow up as needed
== END 2018-02-06 14:07 | disposition home or self-care (01) ==
LOC: ER 12:58
DX: K02.9 Dental caries, unspecified (principal); I10 Essential (primary) hypertension; Z88.6 Allergy status to analgesic agent; Z91.040 Latex allergy status; Z88.0 Allergy status to penicillin; Z87.891 Personal history of nicotine dependence; Z90.49 Acquired absence of other specified parts of digestive tract
CPT/HCPCS: 99282; J3490

== ENCOUNTER 2018-02-06 17:22 | Emergency (ER) | payer OTHER, MEDICAID ==
[2018-02-06 17:29] VITALS: BP 160/98
[2018-02-06] MEDS ORDERED: BUPIVACAINE HCL 0.5 % INJ/PF 30 ML SDV INJ ONE (17:46)
[2018-02-06] MEDS ORDERED: METOCLOPRAMIDE HCL 10 MG TABLET PO ONE (17:47)
--- NOTE | 2018-02-06 17:48 | ER Document Report ---
ED Medical Screen (RME) - General Chief Complaint: Toothache Stated Complaint: HEADACHE/NAUSEA Time Seen by Provider: 02/06/18 17:42 Mode of Arrival: Ambulatory Information source: Patient Notes: 27 yr old female who was just seen her e today with pain presents with continued dental pain and now having nausea and headache I have greeted and performed a rapid initial assessment of this patient. A comprehensive ED assessment and evaluation of the patient, analysis of test results and completion of the medical decision making process will be conducted by additional ED providers. PHYSICAL EXAMINATION: GENERAL: Well-appearing, well-nourished and in no acute distress. HEAD: Atraumatic, normocephalic. EYES: Pupils equal round extraocular movements intact, conjunctiva are normal. ENT: Nares patent, poor dentition NECK: Normal range of motion LUNGS: No respiratory distress Musculoskeletal: Normal range of motion NEUROLOGICAL: Normal speech, normal gait. PSYCH: Normal mood, normal affect. SKIN: Warm, Dry, normal turgor, no rashes or lesions noted. TRAVEL OUTSIDE OF THE [place] IN LAST 30 DAYS: No - Related Data Allergies/Adverse Reactions: morphine [Morphine] Allergy (Severe, Verified 02/06/18 17:25) Difficulty breathing/itch iodine [Iodine] Allergy (Intermediate, Verified 02/06/18 17:25) RASH latex [Latex] Allergy (Intermediate, Verified 02/06/18 17:25) RASH acetaminophen [From Percocet] Allergy (Verified 02/06/18 17:25) Sweats codeine Allergy (Verified 02/06/18 17:25) Hives oxycodone [From Percocet] Allergy (Verified 02/06/18 17:25) Sweats Past Medical History - Social History Family history: Reviewed & Not Pertinent, Hypertension, Other - copd - Past Medical History Cardiac Medical History: Reports: Hx Hypertension Denies: Hx Heart Attack Pulmonary Medical History: Reports: Hx Asthma Denies: Hx Bronchitis, Hx COPD, Hx Pneumonia Neurological Medical History: Denies: Hx Seizures Renal/ Medical History: Reports: Hx Pelvic Inflammatory Disease. Denies: Hx Peritoneal Dialysis Musculoskeltal Medical History: Denies Hx Arthritis, Reports Hx Musculoskeletal Trauma Psychiatric Medical History: Reports: Hx Depression, Hx Post Traumatic Stress Disorder Denies: Hx Bipolar Disorder Traumatic Medical History: Reports: Hx Fractures - Fractured ankle Past Surgical History: Reports: Hx Cholecystectomy, Hx Oral Surgery - wisdom tooth removal 07/2016, Hx Orthopedic Surgery - right ankle - Immunizations Immunizations up to date: Yes Hx Diphtheria, Pertussis, Tetanus Vaccination: Yes Physical Exam - Vital signs Vitals: Temp Pulse Resp BP Pulse Ox 99.0 F 110 H 18 160/98 H 98 02/06/18 17:28 02/06/18 17:28 02/06/18 17:28 02/06/18 17:28 02/06/18 17:28 Course - Vital Signs Vital signs: Temp Pulse Resp BP Pulse Ox 99.0 F 110 H 18 160/98 H 98 02/06/18 17:28 02/06/18 17:28 02/06/18 17:28 02/06/18 17:28 02/06/18 17:28 Doctor's Discharge - Discharge Referrals: KALEB RODRIGES FNP-C [Primary Care Provider] - Follow up as needed
--- NOTE | 2018-02-06 18:11 | ER Document Report ---
HPI - HPI Pain Level: 4 Notes: Patient is a 27-year-old female with no significant past medical history who presents to the ED complaining of continued dental pain primarily to #14, but also has some dental pain #22 and #1. Patient states that she is scheduled for an extraction on . Patient states that she has been on azithromycin and Percocet, but the Percocet caused her to become nauseous as she did not tell them that she was allergic when she started taking it. Patient states that she has since stopped that medication. Patient states that she return to the ED today because she had increased pain and a mild headache starting. Patient did have a dental block performed at [facility] which has already improved her symptoms greatly. She has no other concerns or complaints. She is otherwise eating and drinking without any difficulties. Denies any headache, fever, injury, neck pain, drooling, hoarseness, URI, sore throat, chest pain, palpitations, syncope, cough, shortness of breath, wheeze, dyspnea, abdominal pain, nausea/vomiting/diarrhea, urinary retention, dysuria, hematuria, or rash. - ROS Systems Reviewed and Negative: Yes All other systems reviewed and negative - REPRODUCTIVE Reproductive: REPORTS: : - DERM Skin Color: Normal, Flushed Past Medical History - General Information source: Patient - Social History Smoking Status: Former Smoker Chew tobacco use (# tins/day): No Frequency of alcohol use: None Drug Abuse: None Family History: CAD, COPD, CVA, DM, Hyperlipidemia, Hypertension Patient has suicidal ideation: No Patient has homicidal ideation: No - Past Medical History Cardiac Medical History: Reports: Hx Hypertension Denies: Hx Heart Attack Pulmonary Medical History: Reports: Hx Asthma Denies: Hx Bronchitis, Hx COPD, Hx Pneumonia Neurological Medical History: Denies: Hx Seizures Renal/ Medical History: Reports: Hx Pelvic Inflammatory Disease. Denies: Hx Peritoneal Dialysis Musculoskeltal Medical History: Denies Hx Arthritis, Reports Hx Musculoskeletal Trauma Psychiatric Medical History: Reports: Hx Depression, Hx Post Traumatic Stress Disorder Denies: Hx Bipolar Disorder Traumatic Medical History: Reports: Hx Fractures - Fractured ankle Past Surgical History: Reports: Hx Cholecystectomy, Hx Oral Surgery - wisdom tooth removal 07/2016, Hx Orthopedic Surgery - right ankle - Immunizations Immunizations up to date: Yes Hx Diphtheria, Pertussis, Tetanus Vaccination: Yes Vertical Provider Document - CONSTITUTIONAL Agree With Documented VS: No - HR 94 during exam Notes: PHYSICAL EXAMINATION: GENERAL: Well-appearing, well-nourished and in no acute distress. HEAD: Atraumatic, normocephalic. EYES: Pupils equal round and reactive to light, extraocular movements intact, sclera anicteric, conjunctiva are normal. ENT: Nares patent and without discharge. oropharynx clear without exudates. No tonsilar hypertrophy or erythema. Moist mucous membranes. No sinus tenderness. Uvula midline. No palatine shift. No tongue protrusion. No respiratory compromise. Mouth: Poor dentition. + mild gingivitis. No obvious abscess or discharge noted. No facial swelling. + tenderness to tooth #14, 1, and 22. NECK: Normal range of motion, supple without lymphadenopathy. No rigidity/ meningismus. LUNGS: Breath sounds clear to auscultation bilaterally and equal. No wheezes rales or rhonchi. HEART: Regular rate and rhythm without murmurs, rubs, gallops. NEUROLOGICAL: Cranial nerves grossly intact. Normal speech, normal gait. PSYCH: Normal mood, normal affect. SKIN: Warm, Dry, normal turgor, no rashes or lesions noted. - INFECTION CONTROL TRAVEL OUTSIDE OF THE [place] IN LAST 30 DAYS: No Course - Re-evaluation Re-evalutation: 02/06/18 18:08 Patient is an afebrile, well-hydrated, 27-year-old female who presents to the ED with dental pain, suspect nerve root etiology versus infection. Vitals are acceptable. PE is otherwise unremarkable. No I&D, labs, or imaging warranted at this time based on H&P. I will send her home with a prescription for cleocin and she can stop the zithromax. Low suspicion for any meningitis, sepsis, peritonsillar/pharyngeal abscess, respiratory compromise, Aaron's, temporal arteritis, or other emergent systemic condition at this time. Patient is aware this condition can change from initial presentation and she needs to monitor symptoms closely. Conservative measures otherwise for symptoms. Keep appointment with dentist on . Recheck with your PCM this week as well. Return to the ED with any worsening/concerning symptoms otherwise as reviewed in discharge. Patient is in agreement. - Vital Signs Vital signs: Temp Pulse Resp BP Pulse Ox 99.0 F 110 H 18 160/98 H 98 02/06/18 17:28 02/06/18 17:28 02/06/18 17:28 02/06/18 17:28 02/06/18 17:28 Procedures - Additional Procedures Dental block Time performed: 15:50 Additional Procedures: Other - Dental block performed by Dr. Rueda: infraorbital dental block with 10 cc 0.5% sensorcaine w/o epi. Performed successfully w/o any complications. <0.5cc blood loss. Discharge - Discharge Clinical Impression: Pain, dental Condition: Stable Disposition: HOME, SELF-CARE Instructions: Toothache ([facility]) Additional Instructions: [place] and floss twice daily Maintain fluid intake Take antibiotics as directed Mouthwash, salt water gargles, peroxide rinse as needed Tylenol/ibuprofen as needed Recheck with PCM this week Keep appointment with your dentist on Return to the ED with any worsening symptoms and/or development of fever, headache, facial swelling, swelling of lips/tongue/throat, trouble swallowing, drooling, hoarseness, neck pain/stiffness, chest pain, palpitations, syncope, shortness of breath, trouble breathing, abdominal pain, n/v/d, numbness/tingling , or other worsening symptoms that are concerning to you. Prescriptions: Clindamycin HCl [Cleocin 300 mg Capsule] 300 mg PO TID #30 capsule Forms: Elevated Blood Pressure Referrals: KALEB RODRIGES FNP-C [Primary Care Provider] - Follow up as needed DENTISTRY [Provider Group] - 02/11/18
== END 2018-02-06 18:18 | disposition home or self-care (01) ==
LOC: ER 17:22
PROC: 3E0T3BZ Introduction of Anesthetic Agent into Peripheral Nerves and Plexi, Percutaneous Approach (ICD-10-PCS; principal; 2018-02-06)
DX: K08.9 Disorder of teeth and supporting structures, unspecified (principal); I10 Essential (primary) hypertension; Z87.891 Personal history of nicotine dependence; Z90.49 Acquired absence of other specified parts of digestive tract
CPT/HCPCS: 99283; 64400; J3490

== ENCOUNTER 2018-02-09 22:39 | Emergency (ER) | payer OTHER, MEDICAID ==
[2018-02-09 22:49] VITALS: BP 150/92
== END 2018-02-09 23:51 | disposition left against medical advice (07) ==
LOC: ER 22:39
DX: Z53.21 Procedure and treatment not carried out due to patient leaving prior to being seen by health care provider (principal)

== ENCOUNTER 2018-02-17 03:51 | Emergency (ER) | payer OTHER, MEDICAID ==
[2018-02-17 04:11] VITALS: BP 142/96
== END 2018-02-17 06:59 | disposition left against medical advice (07) ==
LOC: ER 03:51
DX: Z53.21 Procedure and treatment not carried out due to patient leaving prior to being seen by health care provider (principal)

== ENCOUNTER 2018-02-21 | Emergency (ER) | payer OTHER, MEDICAID ==
[2018-02-21 00:05] VITALS: BP 145/92
[2018-02-21] MEDS ORDERED: ONDANSETRON ODT 4 MG TAB (6 TAB/ER DISP) PO PRN (00:56)
[2018-02-21] MEDS ORDERED: LORATADINE 10 MG TABLET PO ONE (00:56)
[2018-02-21] MEDS ORDERED: IBUPROFEN 800 MG TABLET PO ONE (00:56)
[2018-02-21] MEDS ORDERED: PSEUDOEPHEDRINE HCL 30 MG TABLET PO ONE (00:56)
--- NOTE | 2018-02-21 00:57 | ER Document Report ---
ED Headache - General Chief Complaint: Headache Stated Complaint: HEADACHE Time Seen by Provider: 02/21/18 00:47 Mode of Arrival: Ambulatory Information source: Patient Notes: 27-year-old female presented ED for complaint of headache and right ear pain. She states that she has had a cough and cold. She states she also has elevated blood pressure. She states she drinks sodas constantly. TRAVEL OUTSIDE OF THE [place] IN LAST 30 DAYS: No - HPI Patient complains to provider of: Headache, "Migraine" Patient reports: Hx chronic headaches Onset: Other - Beba days Quality of pain: Throbbing Severity: Moderate Pain Level: 3 Associated symptoms: Other - Right ear pain Exacerbated by: Movement, Position Similar symptoms previously: Yes Recently seen / treated by doctor: Yes - Related Data Allergies/Adverse Reactions: morphine [Morphine] Allergy (Severe, Verified 02/08/18 20:21) Difficulty breathing/itch iodine [Iodine] Allergy (Intermediate, Verified 02/08/18 20:21) RASH latex [Latex] Allergy (Intermediate, Verified 02/08/18 20:21) RASH acetaminophen [From Percocet] Allergy (Verified 02/08/18 20:21) Sweats codeine Allergy (Verified 02/08/18 20:21) Hives oxycodone [From Percocet] Allergy (Verified 02/08/18 20:21) Sweats Past Medical History - General Information source: Patient - Social History Smoking Status: Former Smoker Cigarette use (# per day): No Chew tobacco use (# tins/day): No Smoking Education Provided: No Frequency of alcohol use: None Drug Abuse: None Lives with: Family Family History: CAD, COPD, CVA, DM, Hyperlipidemia, Hypertension Patient has suicidal ideation: No Patient has homicidal ideation: No - Past Medical History Cardiac Medical History: Reports: Hx Hypertension Pulmonary Medical History: Reports: Hx Asthma - resolved EENT Medical History: Reports: None Neurological Medical History: Reports: Hx Migraine Endocrine Medical History: Reports: None Renal/ Medical History: Reports: Hx Pelvic Inflammatory Disease Malignancy Medical History: Reports: None GI Medical History: Reports: None Musculoskeltal Medical History: Reports Hx Musculoskeletal Trauma Skin Medical History: Reports None Psychiatric Medical History: Reports: Hx Depression, Hx Post Traumatic Stress Disorder Traumatic Medical History: Reports: Hx Fractures - Fractured ankle Infectious Medical History: Reports: None Past Surgical History: Reports: Hx Cholecystectomy, Hx Oral Surgery - wisdom tooth removal 07/2016, Hx Orthopedic Surgery - right ankle - Immunizations Immunizations up to date: Yes Hx Diphtheria, Pertussis, Tetanus Vaccination: Yes Review of Systems - Review of Systems Constitutional: No symptoms reported EENT: Ear pain Cardiovascular: No symptoms reported Respiratory: No symptoms reported Gastrointestinal: No symptoms reported Genitourinary: No symptoms reported Female Genitourinary: No symptoms reported Musculoskeletal: No symptoms reported Skin: No symptoms reported Hematologic/Lymphatic: No symptoms reported Neurological/Psychological: No symptoms reported -: Yes All other systems reviewed and negative Physical Exam - Vital signs Vitals: Temp Pulse Resp BP Pulse Ox 98.6 F 100 18 145/92 H 100 02/21/18 00:03 02/21/18 00:03 02/21/18 00:03 02/21/18 00:03 02/21/18 00:03 Interpretation: Normal - General General appearance: Appears well, Alert - HEENT Head: Normocephalic, Atraumatic Eyes: Normal Pupils: PERRL Ears: Normal External canal: Normal Tympanic membrane: Serous effusion Sinus: Normal Nasal: Purulent discharge, Swelling Mouth/Lips: Normal Mucous membranes: Normal Pharynx: Post nasal drainage Neck: Normal - Respiratory Respiratory status: No respiratory distress Chest status: Nontender Breath sounds: Normal Chest palpation: Normal - Cardiovascular Rhythm: Regular Heart sounds: Normal auscultation Murmur: No - Abdominal Inspection: Normal Distension: No distension Bowel sounds: Normal Tenderness: Nontender Organomegaly: No organomegaly - Back Back: Normal, Nontender - Extremities General upper extremity: Normal inspection, Nontender, Normal color, Normal ROM , Normal temperature General lower extremity: Normal inspection, Nontender, Normal color, Normal ROM , Normal temperature, Normal weight bearing. 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 Patient states she drinks sodas several sodas a day. She states she has been told before to stop drinking the sodas with her elevated blood pressure but she states she just loves sodas. Patient states she did see her primary care doctor a couple weeks ago for her blood pressure and is been under the emergency room multiple times since then. After performing a Medical Screening Examination, I estimate there is LOW risk for ACUTE GLAUCOMA, TEMPORAL ARTERITIS, MENINGITIS, INCRANIAL HEMORRHAGE, or ISCHEMIC STROKE thus I consider the discharge disposition reasonable. I have reevaluated this patient multiple times and no significant life threatening changes are noted. The patient and I have discussed the diagnosis and risks, and we agree with discharging home with close follow-up with the understanding that symptoms and presentations can change. We also discussed returning to the Emergency Department immediately if new or worsening symptoms occur. We have discussed the symptoms which are most concerning (e.g., changing or worsening symptoms, new numbness or weakness, vomiting, fever) that necessitate immediate return. - Vital Signs Vital signs: Temp Pulse Resp BP Pulse Ox 98.6 F 100 18 145/92 H 100 02/21/18 00:03 02/21/18 00:03 02/21/18 00:03 02/21/18 00:03 02/21/18 00:03 Discharge - Discharge Clinical Impression: Headache Qualifiers: Headache type: unspecified Headache chronicity pattern: unspecified pattern Intractability: not intractable Qualified Code(s): R51 - Headache Condition: Stable Disposition: HOME, SELF-CARE Additional Instructions: HEADACHE: The physician does not feel that the headache you are experiencing has a serious underlying cause. Most headaches are due to emotional stress, with resultant muscle tension (tension headache). Occasionally, headaches are secondary to changes in the blood vessels of the scalp (vascular headache and migraine headache). Sometimes, a headache is the first symptom of another developing illness, such as a viral infection. You have no evidence of stroke, bleeding, meningitis, or other serious cause of your headache. The treatment of headaches varies with the severity and cause of the pain. Not all headaches need pain shots. In fact, there is evidence that using narcotics for headaches may make them worse in the long run. The physician will determine the therapy that's in your best interest. If you develop a fever, if the headache is different from any you've previously experienced, or if the headache progressively worsens, then call your physician at once or go to the emergency room. UPPER RESPIRATORY ILLNESS: You have a viral infection of the respiratory passages -- a "cold." This common infection causes nasal congestion, drainage, and often sore throat and cough. It is highly contagious. The disease usually lasts about 10 to 14 days. There is no "cure" for the viral infection -- it must run its course. If there is a complication, such as bacterial infection in the nose, sinuses, middle ear, or bronchial tubes, antibiotics may be required. The antibiotics won't affect the virus. Drink plenty of fluids. A humidifier may help. An expectorant medication or decongestant may make you more comfortable. Use acetaminophen or ibuprofen for fever or aches. See the doctor if fever persists over two days, if there is any significant worsening of your symptoms, or if you simply fail to improve as expected. DECONGESTANT MEDICATION: A decongestant medicine has been suggested. Often this medicine is combined in the same tablet with an antihistamine or expectorant. This type of medicine is helpful in treating a bad cold or sinus condition, as well as in treatment of the nasal congestion of hay fever. It is not of much benefit for lung infections. Decongestant medicines are related to stimulants. They can cause an increase in blood pressure and heart rate. Persons with heart disease and high blood pressure should not take decongestants without discussing this with the physician. If you develop palpitations, chest pain, headache, or tremors, stop the medicine and consult your physician. USE OF ACETAMINOPHEN (Tylenol): Acetaminophen may be taken for pain relief or fever control. It's much safer than aspirin, offering a wider range of "safe" dosages. It is safe during . Some brand names are Tylenol, Panadol, Datril, Anacin 3, Tempra, and Liquiprin. Acetaminophen can be repeated every four hours. The following are maximum recommended dosages: >89 pounds or adults 650 mg to 900 mg Acetaminophen can be repeated every four hours. Maximum dose not to exceed 4000 mg a day. ANTINAUSEA MEDICATION: You have been given a medication to suppress nausea and vomiting. This type of medication can be given as a shot, pill, or suppository. It will usually last for many hours. Pills and shots usually last six to eight hours, suppositories last about 12 hours. For the typical illness, only one or two doses of the medication may be necessary. Mild lightheadedness may occur. This type of medicine can cause drowsiness. Do not drive or operate dangerous machinery while under its influence. Do not mix with alcohol. See your doctor at once if you have muscle spasms or tightness, or uncontrollable motions (particularly of the neck, mouth, or jaw). Persistent vomiting or severe lightheadedness should also be evaluated by the physician. COMPAZINE FOR HEADACHE: You have received therapy for headaches Compazine. This treatment is dramatically successful in relieving the headache in about 50 percent of cases. When it works, it provides a rapid method of eliminating the headache without resorting to narcotics (and the problems associated with them). Most patients still feel fully alert after the Compazine, but others may be slightly drowsy. It's best not to drive or work with machinery for six to eight hours. Do not take alcohol or other medication unless you discuss it with the doctor. If you develop tightness and spasms in your muscles, especially the neck and tongue, you should return. This is a side effect which can be treated. You were treated with Claritin 10 mg, Sudafed 30 mg, Zofran 4 mg ODT, and ibuprofen in the emergency room. He was given the Zofran dispense pack and given a prescription for Compazine. Take the Compazine with ibuprofen and Claritin to improve your headache. FOLLOW-UP CARE: If you have been referred to a physician for follow-up care, call the physician s office for an appointment as you were instructed or within the next two days. If you experience worsening or a significant change in your symptoms, notify the physician immediately or return to the Emergency Department at any time for re-evaluation. Prescriptions: Prochlorperazine Maleate [Compazine 10 mg Tablet] 10 mg PO ASDIR PRN #10 tablet PRN Reason: Forms: Elevated Blood Pressure
== END 2018-02-21 01:09 | disposition home or self-care (01) ==
LOC: ER
DX: R51 Headache (principal); H92.01 Otalgia, right ear; R05 Cough; I10 Essential (primary) hypertension; Z88.6 Allergy status to analgesic agent; Z91.040 Latex allergy status; Z90.49 Acquired absence of other specified parts of digestive tract
CPT/HCPCS: 99283; L1830

== ENCOUNTER 2018-02-22 23:01 | Emergency (ER) | payer OTHER, MEDICAID ==
[2018-02-22 23:41] VITALS: BP 151/94
[2018-02-23] MEDS ORDERED: CLINDAMYCIN HCL 150 MG CAPSULE PO ONE (02:14)
--- NOTE | 2018-02-23 02:25 | ER Document Report ---
HPI - HPI Pain Level: 1 Notes: Patient is a 27-year-old female to the ED requesting a new splint for her right scaphoid fracture. Patient states that she got the splint wet and it is now making her arm pruritic. Patient had a splint placed 3 days ago by Scar adams. Patient states that she has not had any worsening swelling or pain. Patient states that she would like another prescription for clindamycin as she has dental pain #14 and has an appointment set up in 2 weeks for extraction. Patient states that she started feeling a little feverish yesterday and finished her previous prescription a few days ago. She has not noticed any obvious swelling or purulent discharge. She is eating and drinking without any difficult is. She is urinating normally. No other concerns or complaints at this time. Denies any headache, head injury, neck pain, changes in vision/ speech/mentation/hearing, URI, sore throat, chest pain, palpitations, syncope, cough, shortness of breath, wheeze, dyspnea, abdominal pain, nausea/vomiting/ diarrhea, urinary retention, dysuria, hematuria, loss of control of bowel or bladder, numbness/tingling, muscle paralysis/weakness, or rash. - ROS Systems Reviewed and Negative: Yes All other systems reviewed and negative - REPRODUCTIVE Reproductive: REPORTS: : Past Medical History - Social History Smoking Status: Unknown if Ever Smoked Family History: CAD, COPD, CVA, DM, Hyperlipidemia, Hypertension - Past Medical History Cardiac Medical History: Reports: Hx Hypertension Denies: Hx Heart Attack Pulmonary Medical History: Reports: Hx Asthma - resolved Denies: Hx Bronchitis, Hx COPD, Hx Pneumonia Neurological Medical History: Reports: Hx Migraine. Denies: Hx Seizures Renal/ Medical History: Reports: Hx Pelvic Inflammatory Disease. Denies: Hx Peritoneal Dialysis Musculoskeltal Medical History: Denies Hx Arthritis, Reports Hx Musculoskeletal Trauma Psychiatric Medical History: Reports: Hx Depression, Hx Post Traumatic Stress Disorder Denies: Hx Bipolar Disorder Traumatic Medical History: Reports: Hx Fractures - Fractured ankle Past Surgical History: Reports: Hx Cholecystectomy, Hx Oral Surgery - wisdom tooth removal 07/2016, Hx Orthopedic Surgery - right ankle - Immunizations Immunizations up to date: Yes Hx Diphtheria, Pertussis, Tetanus Vaccination: Yes Vertical Provider Document - CONSTITUTIONAL Agree With Documented VS: Yes Notes: PHYSICAL EXAMINATION: GENERAL: Well-appearing, well-nourished and in no acute distress. HEAD: Atraumatic, normocephalic. EYES: Pupils equal round and reactive to light, extraocular movements intact, sclera anicteric, conjunctiva are normal. ENT: Nares patent and without discharge. oropharynx clear without exudates. No tonsilar hypertrophy or erythema. Moist mucous membranes. No sinus tenderness. Uvula midline. No palatine shift. No tongue protrusion. No respiratory compromise. Mouth: Poor dentition. + mild decay and mild gingivitis. No obvious abscess or discharge noted. No facial swelling. + tenderness to tooth #14. NECK: Normal range of motion, supple without lymphadenopathy. No rigidity/ meningismus. LUNGS: Breath sounds clear to auscultation bilaterally and equal. No wheezes rales or rhonchi. HEART: Regular rate and rhythm without murmurs, rubs, gallops. NEUROLOGICAL: Cranial nerves grossly intact. Normal speech, normal gait. Normal sensory, motor exams MS: Rt wrist/hand: + mild tenderness to the scaphoid area. No ecchymosis or deformity. No erythema or skin break down. No abscess or streaks. N/V intact distal. PSYCH: Normal mood, normal affect. SKIN: Warm, Dry, normal turgor, no rashes or lesions noted. - INFECTION CONTROL TRAVEL OUTSIDE OF THE [place] IN LAST 30 DAYS: No Course - Re-evaluation Re-evalutation: 02/23/18 02:45 Patient is an afebrile, well-hydrated, 27-year-old female who presents to the ED with dental pain, suspect nerve root etiology versus infection. Patient also presents for splint replacement. Vitals are acceptable. PE is otherwise unremarkable. No I&D, labs, or imaging warranted at this time based on H&P. Viscous lidocaine dispensed today. I will send her home with a prescription for penicillin. Splint was placed. Low suspicion for any meningitis, sepsis, peritonsillar/pharyngeal abscess, respiratory compromise, Aaron's, temporal arteritis, or other emergent systemic condition at this time. Patient is aware this condition can change from initial presentation and she needs to monitor symptoms closely. Rx for cleocin. Conservative measures otherwise for symptoms. Call to schedule an appointment with a dentist for further evaluation and management. Recheck with your PCM this week as well. Return to the ED with any worsening/concerning symptoms otherwise as reviewed in discharge. Patient is in agreement. - Vital Signs Vital signs: Temp Pulse Resp BP Pulse Ox 99.4 F 103 H 18 151/94 H 100 02/22/18 23:40 02/22/18 23:40 02/22/18 23:40 02/22/18 23:40 02/22/18 23:40 Procedures - Immobilization Right hand Time completed: 02:40 Pre-Proc Neuro Vasc Exam: Normal Immobilizer type: Thumb spica Performed by: PCT Post-Proc Neuro Vasc Exam: Normal, Unchanged from pre-exam Discharge - Discharge Clinical Impression: Pain, dental, Encounter for replacement of cast Condition: Stable Disposition: HOME, SELF-CARE Instructions: Clindamycin ([facility]), Splint Precautions ([facility]), Toothache ([facility]) Additional Instructions: [place] and floss twice daily Maintain fluid intake Take antibiotics as directed Mouthwash, salt water gargles, peroxide rinse as needed Tylenol/ibuprofen as needed Recheck with PCM this week Keep appointment with dentist and orthopedic as scheduled Return to the ED with any worsening symptoms and/or development of fever, headache, facial swelling, swelling of lips/tongue/throat, trouble swallowing, drooling, hoarseness, neck pain/stiffness, chest pain, palpitations, syncope, shortness of breath, trouble breathing, abdominal pain, n/v/d, numbness/tingling , or other worsening symptoms that are concerning to you. Prescriptions: Clindamycin HCl [Cleocin 300 mg Capsule] 300 mg PO TID #30 capsule Forms: Elevated Blood Pressure Referrals: KALEB RODRIGES FNP-C [Primary Care Provider] - Follow up as needed [facility] [Provider Group] - Follow up as needed [facility] [Provider Group] - Follow up as needed
== END 2018-02-23 02:59 | disposition home or self-care (01) ==
LOC: ER 23:01
PROC: 2W3CX1Z Immobilization of Right Lower Arm using Splint (ICD-10-PCS; principal; 2018-02-22)
DX: K08.89 Other specified disorders of teeth and supporting structures (principal); K02.9 Dental caries, unspecified; K05.10 Chronic gingivitis, plaque induced; S62.001D Unspecified fracture of navicular [scaphoid] bone of right wrist, subsequent encounter for fracture with routine healing; X58.XXXD Exposure to other specified factors, subsequent encounter; L29.9 Pruritus, unspecified; I10 Essential (primary) hypertension; J45.909 Unspecified asthma, uncomplicated
CPT/HCPCS: 99283

== ENCOUNTER 2018-02-23 23:49 | Emergency (ER) | payer OTHER, MEDICAID ==
[2018-02-23 23:55] VITALS: BP 143/96
== END 2018-02-24 03:55 | disposition left against medical advice (07) ==
LOC: ER 23:49
DX: Z53.21 Procedure and treatment not carried out due to patient leaving prior to being seen by health care provider (principal)

== ENCOUNTER 2018-03-01 19:57 | Emergency (ER) | payer OTHER, MEDICAID ==
[2018-03-01 20:07] VITALS: BP 153/96
[2018-03-01] MEDS ORDERED: KETOROLAC TROMETHAMINE 10 MG TABLET PO ONE (22:07)
[2018-03-01] MEDS ORDERED: DEXAMETHASONE SOD PHOS INJ 10 MG/1 ML VIAL IM ONE (22:07)
[2018-03-01] MEDS ORDERED: PROCHLORPERAZINE MALEATE 10 MG TABLET PO ONE (22:08)
--- NOTE | 2018-03-01 22:11 | ER Document Report ---
ED Headache - General Chief Complaint: Headache Stated Complaint: HEADACHE Time Seen by Provider: 03/01/18 21:56 Notes: Patient is a 27-year-old female that comes emergency department for chief complaint of headache. She states she has been getting intermittent headaches for the past 5 days, she states that she has pain in the left side of her neck and shoulder and the headaches are in the back of her head mainly occasionally wrapping around to the front. She denies photophobia or phonophobia, she denies nausea or vomiting. Headache is throbbing. She denies head injury, fever, focal numbness or weakness. She states she has had imaging of the brain in the past (within the past year) which was normal. She states she saw her primary care provider for this already, they told her to get glasses which she did already. TRAVEL OUTSIDE OF THE [place] IN LAST 30 DAYS: No - Related Data Allergies/Adverse Reactions: morphine [Morphine] Allergy (Severe, Verified 02/08/18 20:21) Difficulty breathing/itch iodine [Iodine] Allergy (Intermediate, Verified 02/08/18 20:21) RASH latex [Latex] Allergy (Intermediate, Verified 02/08/18 20:21) RASH acetaminophen [From Percocet] Allergy (Verified 02/08/18 20:21) Sweats codeine Allergy (Verified 02/08/18 20:21) Hives oxycodone [From Percocet] Allergy (Verified 02/08/18 20:21) Sweats Past Medical History - General Information source: Patient - Social History Smoking Status: Never Smoker Drug Abuse: None Lives with: Family Family History: CAD, COPD, CVA, DM, Hyperlipidemia, Hypertension - Past Medical History Cardiac Medical History: Reports: Hx Hypertension Denies: Hx Heart Attack Pulmonary Medical History: Reports: Hx Asthma - resolved Denies: Hx Bronchitis, Hx COPD, Hx Pneumonia Neurological Medical History: Reports: Hx Migraine. Denies: Hx Seizures Renal/ Medical History: Reports: Hx Pelvic Inflammatory Disease. Denies: Hx Peritoneal Dialysis Musculoskeletal Medical History: Denies Hx Arthritis, Reports Hx Musculoskeletal Trauma Psychiatric Medical History: Reports: Hx Depression, Hx Post Traumatic Stress Disorder Denies: Hx Bipolar Disorder Traumatic Medical History: Reports: Hx Fractures - Fractured ankle Past Surgical History: Reports: Hx Cholecystectomy, Hx Oral Surgery - wisdom tooth removal 07/2016, Hx Orthopedic Surgery - right ankle - Immunizations Immunizations up to date: Yes Hx Diphtheria, Pertussis, Tetanus Vaccination: Yes Review of Systems - Review of Systems Constitutional: No symptoms reported EENT: No symptoms reported Cardiovascular: No symptoms reported Respiratory: No symptoms reported Gastrointestinal: No symptoms reported Genitourinary: No symptoms reported Female Genitourinary: No symptoms reported Musculoskeletal: See HPI Skin: No symptoms reported Hematologic/Lymphatic: No symptoms reported Neurological/Psychological: See HPI Physical Exam - Vital signs Vitals: Temp Pulse Resp BP Pulse Ox 99.0 F 96 18 153/96 H 100 03/01/18 20:05 03/01/18 20:05 03/01/18 20:05 03/01/18 20:05 03/01/18 20:05 - Notes Notes: GENERAL: Alert, interacts well. No acute distress. HEAD: Normocephalic, atraumatic. EYES: Pupils equal, round, and reactive to light. Extraocular movements intact. ENT: Oral mucosa moist, tongue midline. NECK: Tenderness of the paracervical and trapezius musculature on the right side , no midline tenderness, full range of motion, normal neck exam otherwise. LUNGS: Clear to auscultation bilaterally, no wheezes, rales, or rhonchi. No respiratory distress. HEART: Regular rate and rhythm. No murmur ABDOMEN: Soft, non-tender. Non-distended. Bowel sounds present in all 4 quadrants. EXTREMITIES: Moves all 4 extremities spontaneously. No edema, normal radial and dorsalis pedis pulses bilaterally. No cyanosis. BACK: no cervical, thoracic, lumbar midline tenderness. No saddle anesthesia, normal distal neurovascular exam. NEUROLOGICAL: Alert and oriented x3. Normal speech. [cranial nerves II through XII grossly intact]. PSYCH: Normal affect, normal mood. SKIN: Warm, dry, normal turgor. No rashes or lesions noted. Course - Re-evaluation Re-evalutation: Patient smiling and well-appearing. She does have some tenderness in the right paracervical and trapezius musculature, description and symptoms also suggestive of tension headache. Patient declines IV medication, requests oral medication. She states she just needs something for her head and then she is ready to go. Unremarkable vital signs other than mild hypertension, she is already medicated for this. Very low suspicion of intracranial hemorrhage, subarachnoid hemorrhage, sinus venous thrombosis, meningitis, or other emergent etiology based on her examination. Patient given medications here, prescriptions for tension headaches, discussed follow-up and return precautions , patient states understanding and agreement. - Vital Signs Vital signs: Temp Pulse Resp BP Pulse Ox 99.0 F 96 18 153/96 H 100 03/01/18 20:05 03/01/18 20:05 03/01/18 20:05 03/01/18 20:05 03/01/18 20:05 Discharge - Discharge Clinical Impression: Headache Qualifiers: Headache type: unspecified Headache chronicity pattern: unspecified pattern Intractability: not intractable Qualified Code(s): R51 - Headache Condition: Stable Disposition: HOME, SELF-CARE Additional Instructions: Your symptoms and evaluation are most consistent with tension headaches. Recommendation is to take the muscle relaxer, apply heat 2 your neck, have the neck massage, take Fioricet if needed for tension headaches, and follow-up with primary care for additional management. Return if you worsen including vomiting , severe headache, fever of 100.4 or greater, or any other concerning symptoms. Prescriptions: Butalb/Acetaminophen/Caffeine [Fioricet (50-325-40 mg) Tablet] 1 tab PO Q4HP PRN #30 tab PRN Reason: Methocarbamol [Robaxin 750 mg Tablet] 750 mg PO Q6 #20 tablet Forms: Return to Work Referrals: KALEB RODRIGES FNP-C [Primary Care Provider] - Follow up as needed
[2018-03-01] MEDS ORDERED: KETOROLAC TROMETHAMINE 10 MG TABLET ONE (22:39)
== END 2018-03-01 23:07 | disposition home or self-care (01) ==
LOC: ER 19:57
DX: R51 Headache (principal); M54.2 Cervicalgia; M25.519 Pain in unspecified shoulder; I10 Essential (primary) hypertension; Z79.899 Other long term (current) drug therapy; Z88.5 Allergy status to narcotic agent; Z91.040 Latex allergy status; Z88.6 Allergy status to analgesic agent
CPT/HCPCS: 99283; 96372; S0183; J3490; J1100

== ENCOUNTER 2018-03-04 02:01 | Emergency (ER) | payer OTHER, MEDICAID ==
[2018-03-04 02:08] VITALS: BP 129/91
--- NOTE | 2018-03-04 02:51 | ER Document Report ---
ED General - General Chief Complaint: Headache Stated Complaint: MOUTH PAIN Time Seen by Provider: 03/04/18 02:32 Mode of Arrival: Ambulatory Information source: Patient Notes: 27-year-old female presents with complaints of headache dental pain. Patient notes she had 3 teeth extracted on Thursday the pain she says has worsened since she has had dental pain for months. She denies any fevers or chills denies any nausea vomiting or diarrhea. TRAVEL OUTSIDE OF THE [place] IN LAST 30 DAYS: No - HPI Onset: Other Onset/Duration: Persistent Quality of pain: Sharp Severity: Moderate Pain Level: 4 Associated symptoms: Other Exacerbated by: Denies Relieved by: Denies Similar symptoms previously: Yes Recently seen / treated by doctor: Yes - Related Data Allergies/Adverse Reactions: morphine [Morphine] Allergy (Severe, Verified 02/08/18 20:21) Difficulty breathing/itch iodine [Iodine] Allergy (Intermediate, Verified 02/08/18 20:21) RASH latex [Latex] Allergy (Intermediate, Verified 02/08/18 20:21) RASH acetaminophen [From Percocet] Allergy (Verified 02/08/18 20:21) Sweats codeine Allergy (Verified 02/08/18 20:21) Hives oxycodone [From Percocet] Allergy (Verified 02/08/18 20:21) Sweats Past Medical History - Social History Smoking Status: Never Smoker Cigarette use (# per day): No Chew tobacco use (# tins/day): No Smoking Education Provided: No Family History: CAD, COPD, CVA, DM, Hyperlipidemia, Hypertension - Past Medical History Cardiac Medical History: Reports: Hx Hypertension Denies: Hx Heart Attack Pulmonary Medical History: Reports: Hx Asthma - resolved Denies: Hx Bronchitis, Hx COPD, Hx Pneumonia Neurological Medical History: Reports: Hx Migraine. Denies: Hx Seizures Renal/ Medical History: Reports: Hx Pelvic Inflammatory Disease. Denies: Hx Peritoneal Dialysis Musculoskeletal Medical History: Denies Hx Arthritis, Reports Hx Musculoskeletal Trauma Psychiatric Medical History: Reports: Hx Depression, Hx Post Traumatic Stress Disorder Denies: Hx Bipolar Disorder Traumatic Medical History: Reports: Hx Fractures - Fractured ankle Past Surgical History: Reports: Hx Cholecystectomy, Hx Oral Surgery - wisdom tooth removal 07/2016, Hx Orthopedic Surgery - right ankle - Immunizations Immunizations up to date: Yes Hx Diphtheria, Pertussis, Tetanus Vaccination: Yes Review of Systems - Review of Systems Notes: REVIEW OF SYSTEMS: CONSTITUTIONAL : Denies fever, chills, or sweats. Denies recent illness. EENT: Admits dental pain CARDIOVASCULAR: Denies chest pain. Denies palpitations or racing or irregular heart beat. Denies ankle edema. RESPIRATORY: Denies cough, cold, or chest congestion. Denies shortness of breath, difficulty breathing, or wheezing. GASTROINTESTINAL: Denies abdominal pain or distention. Denies nausea, vomiting , or diarrhea. Denies blood in vomitus, stools, or per rectum. Denies black, tarry stools. Denies constipation. GENITOURINARY: Denies difficulty urinating, painful urination, burning, frequency, blood in urine, or discharge. FEMALE GENITOURINARY: Denies vaginal bleeding, heavy or abnormal periods, irregular periods. Denies vaginal discharge or odor. MUSCULOSKELETAL: Denies back or neck pain or stiffness. Denies joint pain or swelling. SKIN: Denies rash, lesions or sores. HEMATOLOGIC : Denies easy bruising or bleeding. LYMPHATIC: Denies swollen, enlarged glands. NEUROLOGICAL: Admits to headache PSYCHIATRIC: Denies anxiety or stress. Denies depression, suicidal ideation, or homicidal ideation. ALL OTHER SYSTEMS REVIEWED AND NEGATIVE. PHYSICAL EXAMINATION: GENERAL: Well-appearing, well-nourished and in no acute distress. HEAD: Atraumatic, normocephalic. EYES: Pupils equal round and reactive to light, extraocular movements intact, conjunctiva are normal. ENT: Teeth 09/06/2012 extracted NECK: Normal range of motion, supple without lymphadenopathy LUNGS: Breath sounds clear to auscultation bilaterally and equal. No wheezes rales or rhonchi. HEART: Regular rate and rhythm without murmurs ABDOMEN: Soft, nontender, nondistended abdomen. No guarding, no rebound. No masses appreciated. Female : deferred Musculoskeletal: Normal range of motion, no pitting or edema. No cyanosis. NEUROLOGICAL: Cranial nerves grossly intact. Normal speech, normal gait. Normal sensory, motor exams PSYCH: Normal mood, normal affect. SKIN: Warm, Dry, normal turgor, no rashes or lesions noted. Dictation was performed using [employer] voice recognition software Physical Exam - Vital signs Vitals: Temp Pulse Resp BP Pulse Ox 98.4 F 99 24 H 129/91 H 98 03/04/18 02:06 03/04/18 02:06 03/04/18 02:06 03/04/18 02:06 03/04/18 02:06 Course - Re-evaluation Re-evalutation: 03/04/18 02:53 Patient has probable dry socket given the extent of her pain, she was offered oral pain medication she defers, she was offered dental block she defers, I have encouraged her to use clove oil for her dry socket. Otherwise she is stable for discharge After performing a Medical Screening Examination, I estimate there is LOW risk for a DEEP SPACE INFECTION (e.g., MOON'S ANGINA OR RETROPHARYNGEAL ABSCESS), MENINGITIS, INTRACRANIAL HEMORRHAGE, or AIRWAY COMPROMISE, thus I consider the discharge disposition reasonable. Also, there is no evidence or peritonitis, sepsis, or toxicity. I have reevaluated this patient multiple times and no significant life threatening changes are noted. The patient and I have discussed the diagnosis and risks, and we agree with discharging home with close follow-up with the understanding that symptoms and presentations can change. We also discussed returning to the Emergency Department immediately if new or worsening symptoms occur. We have discussed the symptoms which are most concerning (e.g., changing or worsening pain, trouble swallowing or breathing, neck stiffness or fever) that necessitate immediate return. - Vital Signs Vital signs: Temp Pulse Resp BP Pulse Ox 98.4 F 99 24 H 129/91 H 98 03/04/18 02:06 03/04/18 02:06 03/04/18 02:06 03/04/18 02:06 03/04/18 02:06 Discharge - Discharge Clinical Impression: Dry socket Condition: Stable Disposition: HOME, SELF-CARE Additional Instructions: Please purchase [id number] medication clove oil and applied to your gums that are hurting 1.The tooth's socket should first be cleansed by rinsing it very gently with lukewarm water or saline solution. The idea is that the liquid should gently lift and carry away whatever loose debris is present. Spit out the liquid when finished. 2.Prepare a dressing by placing 1 drop of eugenol (oil of cloves) on a carrier, such as a piece of cotton or gauze that's been shaped into a 1/4 inch ball or cube. The specific dimensions of the carrier should be tailored to the size of your wound. It needs to be small enough that it fits into the socket easily but also large enough that it helps to prevent food debris from accumulating. It must also be large enough that it can be easily grasped and recovered when it 's time for it to be removed. In terms of density (sponginess), the carrier should be soft enough that it easily slides into the socket. But also dense enough that the wetness of the eugenol or oral liquids don't utterly collapse it. As another consideration, it must also be dense enough that it can be expected to retain the applied eugenol. 3.Using tweezers, briefly and lightly drag the dressing across a cloth to draw away excess eugenol. (You want the eugenol in your tooth's socket, not flowing out into your mouth.) Then gently insert the completed dressing into the opening of your tooth's socket (loosely placed, not compacted). 4.The dressing is removed, discarded and then replaced with a fresh one (using this same set of instructions) every 24 hours until the dry socket's pain has subsided. 5.Management of the dressing is an important consideration. Your body considers it a "foreign body" and as such it interferes with the healing process. (The trade-off with treatment is that pain relief is obtained at the expense of delaying healing slightly.) 6.In all cases, your treatment needs to cease and any dressing removed once your symptoms have subsided sufficiently (like at that point when the use of an [id number] pain reliever is able to keep you comfortable). This point should be reached within 4 to 5 days. 7.At any point when the attention of a dentist or other healthcare provider becomes available, you should report to them what steps you have taken, cease performing further self-treatments and follow their instructions. Referrals: KALEB RODRIGES FNP-C [Primary Care Provider] - Follow up as needed
== END 2018-03-04 03:00 | disposition home or self-care (01) ==
LOC: ER 02:01
DX: M27.3 Alveolitis of jaws (principal); K08.89 Other specified disorders of teeth and supporting structures; R51 Headache; I10 Essential (primary) hypertension; Z98.890 Other specified postprocedural states; Z88.5 Allergy status to narcotic agent; Z91.040 Latex allergy status; Z88.6 Allergy status to analgesic agent
CPT/HCPCS: 99282

== ENCOUNTER 2018-03-06 00:24 | Emergency (ER) | payer OTHER, MEDICAID | END 2018-03-06 00:38 | disposition left against medical advice (07) | LOC: ER 00:24 | DX: Z53.21 Procedure and treatment not carried out due to patient leaving prior to being seen by health care provider (principal) ==

== ENCOUNTER 2018-03-06 00:59 | Emergency (ER) | payer OTHER, MEDICAID ==
[2018-03-06 01:18] VITALS: BP 140/82
--- NOTE | 2018-03-06 01:34 | ER Document Report ---
ED Headache - General Mode of Arrival: Ambulatory Information source: Patient TRAVEL OUTSIDE OF THE [place] IN LAST 30 DAYS: No - General Chief Complaint: Head Injury Stated Complaint: HEADACHE Time Seen by Provider: 03/06/18 01:19 Notes: 27-year-old female who is quite well-known to this emergency department presents today for a headache. Patient has had 4 visits in the last 5 days for headaches and 12 visits in the last month for headaches. Patient states she has "changed her glasses and changed her blood pressure medicine so she is not sure what else to do". Patient states she did not fill the Robaxin and Fioricet that she was recently prescribed from here because she "did not get around to it" and she states that she "does not know where her prescriptions are because she is moving soon". (MERLIN GARDNER) - Related Data Allergies/Adverse Reactions: morphine [Morphine] Allergy (Severe, Verified 02/08/18 20:21) Difficulty breathing/itch iodine [Iodine] Allergy (Intermediate, Verified 02/08/18 20:21) RASH latex [Latex] Allergy (Intermediate, Verified 02/08/18 20:21) RASH acetaminophen [From Percocet] Allergy (Verified 02/08/18 20:21) Sweats codeine Allergy (Verified 02/08/18 20:21) Hives oxycodone [From Percocet] Allergy (Verified 02/08/18 20:21) Sweats Past Medical History - General Information source: Patient, [facility] Records - Social History Smoking Status: Never Smoker Frequency of alcohol use: None Drug Abuse: None Lives with: Family Family History: CAD, COPD, CVA, DM, Hyperlipidemia, Hypertension - Past Medical History Cardiac Medical History: Reports: Hx Hypertension Pulmonary Medical History: Reports: Hx Asthma - resolved Neurological Medical History: Reports: Hx Migraine Renal/ Medical History: Reports: Hx Pelvic Inflammatory Disease Musculoskeletal Medical History: Reports Hx Musculoskeletal Trauma Psychiatric Medical History: Reports: Hx Depression, Hx Post Traumatic Stress Disorder Traumatic Medical History: Reports: Hx Fractures - Fractured ankle Past Surgical History: Reports: Hx Cholecystectomy, Hx Oral Surgery - wisdom tooth removal 07/2016, Hx Orthopedic Surgery - right ankle - Immunizations Immunizations up to date: Yes Hx Diphtheria, Pertussis, Tetanus Vaccination: Yes Review of Systems - Review of Systems Constitutional: No symptoms reported EENT: No symptoms reported Cardiovascular: No symptoms reported Respiratory: No symptoms reported Gastrointestinal: No symptoms reported Genitourinary: No symptoms reported Female Genitourinary: No symptoms reported Musculoskeletal: No symptoms reported Skin: No symptoms reported Hematologic/Lymphatic: No symptoms reported Neurological/Psychological: See HPI, Headaches -: Yes All other systems reviewed and negative Physical Exam - Vital signs Vitals: Temp Pulse Resp BP Pulse Ox 97.7 F 73 20 140/82 H 98 03/06/18 01:09 03/06/18 01:03/06/18 01:03/06/18 01:03/06/18 01:09 - Notes Notes: Physical Exam: General: Alert, appears well. HEENT: Normocephalic. Atraumatic. PERRL. Extraocular movements intact. Oropharynx clear. Neck: Posterior cervical muscle tenderness with palpation. Non-tender. Respiratory: No respiratory distress. Clear and equal breath sounds bilaterally. Cardiovascular: Regular rate and rhythm. Abdominal: Normal Inspection. Non-tender. No distension. Normal Bowel Sounds. Back: Non-tender. No deformity or step off. Extremities: Moves all four extremities. Upper extremities: Normal inspection. Normal ROM. Lower extremities: Normal inspection. No edema. Normal ROM. Neurological: Normal cognition. AAOx4. Normal speech. Psychological: Normal affect. Normal Mood. Skin: Warm. Dry. Normal color. (MERLIN GARDNER) - Vital Signs Vital signs: Temp Pulse Resp BP Pulse Ox 97.7 F 73 20 140/82 H 98 03/06/18 01:09 03/06/18 01:09 03/06/18 01:03/06/18 01:03/06/18 01:09 Discharge - Discharge Clinical Impression: Tension type headache Qualifiers: Headache chronicity pattern: chronic headache Intractability: not intractable Qualified Code(s): G44.229 - Chronic tension-type headache, not intractable Additional Instructions: Tension Headache: Your problem has been diagnosed as muscle tension headache. This very common type of headache occurs because of tightness in the muscles of the head and neck. The cause may be neck or jaw joint problems, but most commonly the cause is emotional stress. The headache may last hours or days. The treatment of uncomplicated tension headaches is rest and pain medication. Often, the newer antiinflammatory pain medications are prescribed, as these also decrease the irritability of the painful tissues. Muscle relaxers , cold packs, or warm packs are sometimes helpful. Anti-anxiety medication or narcotics are sometimes needed temporarily, but are best avoided in the long run. Your doctor has evaluated your headache problem, and finds no evidence of a serious health problem as a cause for the headache. If your headache becomes more severe, or if new symptoms develop (such as fever, stiff neck, vomiting, or decreasing alertness) you should be re-examined by the physician. Take medications as prescribed for your muscle tension headache. Take ibuprofen 600 mg every 6 hours. Taking Benadryl with these medications may help the headaches, and will help you sleep at night. If you find the prescription she received 5 days ago, do not fill them because you are receiving new prescriptions for the same type of medication. Follow-up with your doctor in the office if you are not improving. Prescriptions: Butalb/Acetaminophen/Caffeine [Fioricet (50-325-40 mg) Tablet] 1 tab PO ASDIR PRN #20 tab PRN Reason: For Headache Cyclobenzaprine HCl [Flexeril 5 mg Tablet] 5 mg PO TID PRN #15 tablet PRN Reason: Referrals: KALEB RODRIGES, [employer] OPERATOR-C [Primary Care Provider] - Follow up as needed Clay Attestation: 03/06/18 01:39 I personally performed the services described in the documentation, reviewed and edited the documentation which was dictated to the scribe in my presence, and it accurately records my words and actions. (CONNIE PACE) Scribe Documentation - Scribe Written by Clay:: Clay Alexander, 03/06/2018 0150 acting as scribe for :: Leon
== END 2018-03-06 01:45 | disposition home or self-care (01) ==
LOC: ER 00:59
DX: G44.229 Chronic tension-type headache, not intractable (principal); I10 Essential (primary) hypertension; Z90.49 Acquired absence of other specified parts of digestive tract; Z88.6 Allergy status to analgesic agent; Z91.040 Latex allergy status
CPT/HCPCS: 99283

== ENCOUNTER 2018-03-08 01:18 | Emergency (ER) | payer OTHER, MEDICAID ==
[2018-03-08 01:23] VITALS: BP 149/94
== END 2018-03-08 03:03 | disposition left against medical advice (07) ==
LOC: ER 01:18
DX: Z53.21 Procedure and treatment not carried out due to patient leaving prior to being seen by health care provider (principal)

== ENCOUNTER 2018-03-08 05:00 | Emergency (ER) | payer OTHER, MEDICAID ==
[2018-03-08 05:20] VITALS: BP 131/84
[2018-03-08] MEDS ORDERED: KETOROLAC TROMETHAMINE 60 MG/2 ML SDV IM ONE (07:01)
--- NOTE | 2018-03-08 07:02 | ER Document Report ---
ED General - General Chief Complaint: Headache Stated Complaint: HEADACHE,FATIGUE Time Seen by Provider: 03/08/18 06:46 Notes: Chief complaint: Headache History of complain:( obtained from----patient) 27 years old female with multiple visits to the ED within this month, and previously. She signed out AMA around 4:00 return back saying that the headache is persistent. She has been treated for headache for the last 6 times. And previously for the pain complaints. States she is having occipital headache for a long time. Take Fioricet. Denies any nausea vomiting or other constitutional symptoms Onset: Unknown Duration: Many months Severity: Unknown claims to be severe Quality: Sharp Context: Unknown Exacerbating factor and relieving factors: Unknown REVIEW OF SYSTEMS: CONSTITUTIONAL : Denies fever, chills, or sweats. Denies recent illness. EENT: Denies eye, ear, throat, or mouth pain or symptoms. Denies nasal or sinus congestion or discharge. Denies throat, tongue, or mouth swelling or difficulty swallowing. CARDIOVASCULAR: Denies chest pain. Denies palpitations or racing or irregular heart beat. Denies ankle edema. RESPIRATORY: Denies cough, cold, or chest congestion. Denies shortness of breath, difficulty breathing, or wheezing. GASTROINTESTINAL: Denies distention. Denies nausea, vomiting, or diarrhea. Denies blood in vomitus, stools, or per rectum. Denies black, tarry stools. Denies constipation. GENITOURINARY: Denies difficulty urinating, painful urination, burning, frequency, blood in urine, or discharge. FEMALE GENITOURINARY: Denies vaginal bleeding, heavy or abnormal periods, irregular periods. Denies vaginal discharge or odor. MUSCULOSKELETAL: Denies back or neck pain or stiffness. Denies joint pain or swelling. SKIN: Denies rash, lesions or sores. HEMATOLOGIC : Denies easy bruising or bleeding. LYMPHATIC: Denies swollen, enlarged glands. NEUROLOGICAL: Denies confusion or altered mental status. Denies passing out or loss of consciousness. Denies dizziness or lightheadedness. Denies headache. Denies weakness or paralysis or loss of use of either side. Denies problems with gait or speech. Denies sensory loss, numbness, or tingling. Denies seizures. PSYCHIATRIC: Denies anxiety or stress. Denies depression, suicidal ideation, or homicidal ideation. ALL OTHER SYSTEMS REVIEWED AND NEGATIVE. PHYSICAL EXAMINATION: GENERAL: Well-appearing, well-nourished and in no acute distress. Not appears to be in any distress HEAD: Atraumatic, normocephalic. EYES: Pupils equal round and reactive to light, extraocular movements intact, conjunctiva are normal. ENT: Nares patent, oropharynx clear without exudates. Moist mucous membranes. NECK: Normal range of motion, supple without lymphadenopathy LUNGS: Breath sounds clear to auscultation bilaterally and equal. No wheezes rales or rhonchi. HEART: Regular rate and rhythm without murmurs ABDOMEN: Soft, nontender, nondistended abdomen. No guarding, no rebound. No masses appreciated. Examination of genitals-deferred Musculoskeletal: Normal range of motion, no pitting or edema. No cyanosis. NEUROLOGICAL: Cranial nerves grossly intact. Normal speech, normal gait. Normal sensory, motor exams PSYCH: Normal mood, normal affect. SKIN: Warm, Dry, normal turgor, no rashes or lesions noted. Dictation was performed using [employer] voice recognition software TRAVEL OUTSIDE OF THE [place] IN LAST 30 DAYS: No - [facility] Notes: Dictated - Related Data Allergies/Adverse Reactions: morphine [Morphine] Allergy (Severe, Verified 02/08/18 20:21) Difficulty breathing/itch iodine [Iodine] Allergy (Intermediate, Verified 02/08/18 20:21) RASH latex [Latex] Allergy (Intermediate, Verified 02/08/18 20:21) RASH acetaminophen [From Percocet] Allergy (Verified 02/08/18 20:21) Sweats codeine Allergy (Verified 02/08/18 20:21) Hives oxycodone [From Percocet] Allergy (Verified 02/08/18 20:21) Sweats Past Medical History - General Information source: Patient - Social History Smoking Status: Never Smoker Chew tobacco use (# tins/day): No Frequency of alcohol use: Occasional Drug Abuse: None Family History: CAD, COPD, CVA, DM, Hyperlipidemia, Hypertension Patient has suicidal ideation: No Patient has homicidal ideation: No - Past Medical History Cardiac Medical History: Reports: Hx Hypertension Denies: Hx Heart Attack Pulmonary Medical History: Reports: Hx Asthma - resolved Denies: Hx Bronchitis, Hx COPD, Hx Pneumonia Neurological Medical History: Reports: Hx Migraine. Denies: Hx Seizures Renal/ Medical History: Reports: Hx Pelvic Inflammatory Disease. Denies: Hx Peritoneal Dialysis Musculoskeletal Medical History: Denies Hx Arthritis, Reports Hx Musculoskeletal Trauma Psychiatric Medical History: Reports: Hx Depression, Hx Post Traumatic Stress Disorder Denies: Hx Bipolar Disorder Traumatic Medical History: Reports: Hx Fractures - Fractured ankle Past Surgical History: Reports: Hx Cholecystectomy, Hx Oral Surgery - wisdom tooth removal 07/2016, Hx Orthopedic Surgery - right ankle - Immunizations Immunizations up to date: Yes Hx Diphtheria, Pertussis, Tetanus Vaccination: Yes Review of Systems - Review of Systems Notes: Dictated Physical Exam - Vital signs Vitals: Temp Pulse Resp BP Pulse Ox 98.6 F 80 20 131/84 H 98 03/08/18 05:19 03/08/18 05:19 03/08/18 05:19 03/08/18 05:19 03/08/18 05:19 - Notes Notes: Dictated Course - Re-evaluation Re-evalutation: 03/08/18 07:01 Given Toradol IM - Vital Signs Vital signs: Temp Pulse Resp BP Pulse Ox 98.6 F 80 20 131/84 H 98 03/08/18 05:19 03/08/18 05:19 03/08/18 05:19 03/08/18 05:19 03/08/18 05:19 Discharge - Discharge Clinical Impression: Chronic headache Qualifiers: Headache type: unspecified Intractability: not intractable Qualified Code(s): R51 - Headache Condition: Fair Disposition: HOME, SELF-CARE Instructions: Headache ([facility]) Referrals: KALEB RODRIGES FNP-C [Primary Care Provider] - Follow up as needed
== END 2018-03-08 07:15 | disposition home or self-care (01) ==
LOC: ER 05:00
DX: R51 Headache (principal); Z79.891 Long term (current) use of opiate analgesic; I10 Essential (primary) hypertension; J45.909 Unspecified asthma, uncomplicated; Z88.5 Allergy status to narcotic agent; Z91.040 Latex allergy status; Z88.6 Allergy status to analgesic agent
CPT/HCPCS: 96372; 99283

== ENCOUNTER 2018-03-19 20:48 | Emergency (ER) | payer OTHER, MEDICAID ==
--- NOTE | 2018-03-19 20:59 | ER Document Report ---
ED Medical Screen (RME) - General Chief Complaint: Abdominal Pain Stated Complaint: DIARRHEA Time Seen by Provider: 03/19/18 20:55 Mode of Arrival: Ambulatory Information source: Patient Notes: Patient presents to emergency department with complaints of abdominal pain and diarrhea. Last diarrhea was this morning. She has been evaluated by a primary care provider given a shot of Nubain and was supposed to see her provider again tomorrow. She was told that she still had pain to return to the emergency department. Patient is nontoxic looking looks fine. I have greeted and performed a rapid initial assessment of this patient. A comprehensive ED assessment and evaluation of the patient, analysis of test results and completion of the medical decision making process will be conducted by additional ED providers. TRAVEL OUTSIDE OF THE [place] IN LAST 30 DAYS: No - Related Data Allergies/Adverse Reactions: morphine [Morphine] Allergy (Severe, Verified 02/08/18 20:21) Difficulty breathing/itch iodine [Iodine] Allergy (Intermediate, Verified 02/08/18 20:21) RASH latex [Latex] Allergy (Intermediate, Verified 02/08/18 20:21) RASH acetaminophen [From Percocet] Allergy (Verified 02/08/18 20:21) Sweats codeine Allergy (Verified 02/08/18 20:21) Hives oxycodone [From Percocet] Allergy (Verified 02/08/18 20:21) Sweats Past Medical History - Social History Family history: Reviewed & Not Pertinent, Hypertension, Other - copd - Past Medical History Cardiac Medical History: Reports: Hx Hypertension Denies: Hx Heart Attack Pulmonary Medical History: Reports: Hx Asthma - resolved Denies: Hx Bronchitis, Hx COPD, Hx Pneumonia Neurological Medical History: Reports: Hx Migraine. Denies: Hx Seizures Renal/ Medical History: Reports: Hx Pelvic Inflammatory Disease. Denies: Hx Peritoneal Dialysis Musculoskeltal Medical History: Denies Hx Arthritis, Reports Hx Musculoskeletal Trauma Psychiatric Medical History: Reports: Hx Depression, Hx Post Traumatic Stress Disorder Denies: Hx Bipolar Disorder Traumatic Medical History: Reports: Hx Fractures - Fractured ankle Past Surgical History: Reports: Hx Cholecystectomy, Hx Oral Surgery - wisdom tooth removal 07/2016, Hx Orthopedic Surgery - right ankle - Immunizations Immunizations up to date: Yes Hx Diphtheria, Pertussis, Tetanus Vaccination: Yes Doctor's Discharge - Discharge Referrals: RODRIGES,KALEB, DIRECTOR PAYER-C [Primary Care Provider] - Follow up as needed
[2018-03-19] MEDS ORDERED: NORMAL SALINE 1000 ML 1,000 ML IV ONE (21:55)
[2018-03-19] MEDS ORDERED: PROMETHAZINE HCL INJ 25 MG/1 ML VIAL IM ONE (21:56)
--- NOTE | 2018-03-19 21:58 | ER Document Report ---
ED GI/ - General Chief Complaint: Abdominal Pain Stated Complaint: DIARRHEA Time Seen by Provider: 03/19/18 20:55 Mode of Arrival: Ambulatory Notes: Patient is a 27-year-old female who comes to the emergency department for chief complaint of diarrhea and abdominal pain. She states that for the past 2 days she has had frequent diarrhea, she had 16 episodes of diarrhea yesterday, 5 episodes today, nonbloody, yellowish in appearance. She denies fever or chills , nausea or vomiting. Pain is in the left lower part of her abdomen. She denies flank pain. She states she was seen by her provider, "they told me I have diverticulitis", She was placed on Cipro, given a shot of Rocephin, told that she was to come back to the office and receive IV antibiotics tomorrow and if she felt worse that she should come to the emergency department. Past medical history of cholecystectomy, migraines, anxiety/depression. TRAVEL OUTSIDE OF THE [place] IN LAST 30 DAYS: No - Related Data Allergies/Adverse Reactions: morphine [Morphine] Allergy (Severe, Verified 03/19/18 21:53) Difficulty breathing/itch iodine [Iodine] Allergy (Intermediate, Verified 03/19/18 21:53) RASH latex [Latex] Allergy (Intermediate, Verified 03/19/18 21:53) RASH Past Medical History - General Information source: Patient - Social History Smoking Status: Former Smoker Drug Abuse: None Lives with: Family Family History: CAD, COPD, CVA, DM, Hyperlipidemia, Hypertension Patient has suicidal ideation: No Patient has homicidal ideation: No - Past Medical History Cardiac Medical History: Reports: Hx Hypertension Denies: Hx Heart Attack Pulmonary Medical History: Reports: Hx Asthma - resolved Denies: Hx Bronchitis, Hx COPD, Hx Pneumonia Neurological Medical History: Reports: Hx Migraine. Denies: Hx Seizures Renal/ Medical History: Reports: Hx Pelvic Inflammatory Disease. Denies: Hx Peritoneal Dialysis Musculoskeletal Medical History: Denies Hx Arthritis, Reports Hx Musculoskeletal Trauma Psychiatric Medical History: Reports: Hx Depression, Hx Post Traumatic Stress Disorder Denies: Hx Bipolar Disorder Traumatic Medical History: Reports: Hx Fractures - Fractured ankle Past Surgical History: Reports: Hx Cholecystectomy, Hx Oral Surgery - wisdom tooth removal 07/2016, Hx Orthopedic Surgery - right ankle - Immunizations Immunizations up to date: Yes Hx Diphtheria, Pertussis, Tetanus Vaccination: Yes Review of Systems - Review of Systems Constitutional: No symptoms reported EENT: No symptoms reported Cardiovascular: No symptoms reported Respiratory: No symptoms reported Gastrointestinal: See HPI Genitourinary: No symptoms reported Female Genitourinary: No symptoms reported Musculoskeletal: No symptoms reported Skin: No symptoms reported Hematologic/Lymphatic: No symptoms reported Neurological/Psychological: No symptoms reported Physical Exam - Vital signs Vitals: Temp Pulse Resp BP Pulse Ox 98.9 F 124 H 18 169/98 H 100 03/19/18 20:57 03/19/18 20:57 03/19/18 20:57 03/19/18 20:57 03/19/18 20:57 - Notes Notes: GENERAL: Alert. No acute distress. HEAD: Normocephalic, atraumatic. EYES: Pupils equal, round, and reactive to light. Extraocular movements intact. ENT: Oral mucosa moist, tongue midline. NECK: Full range of motion. Supple. Trachea midline. LUNGS: Clear to auscultation bilaterally, no wheezes, rales, or rhonchi. No respiratory distress. HEART: Borderline tachycardia on my exam. No murmur. ABDOMEN: Patient complains of tenderness with palpation over the left lower quadrant although this is very mild, soft abdomen, no rigidity, no rebound tenderness, no other locations of tenderness. EXTREMITIES: Moves all 4 extremities spontaneously. No edema, normal radial and dorsalis pedis pulses bilaterally. No cyanosis. BACK: no cervical, thoracic, lumbar midline tenderness. No saddle anesthesia, normal distal neurovascular exam. NEUROLOGICAL: Alert and oriented x3. Normal speech. [cranial nerves II through XII grossly intact]. PSYCH: Patient talks rapidly and appears to be anxious, otherwise unremarkable. SKIN: Warm, dry, normal turgor. No rashes or lesions noted. Course - Re-evaluation Re-evalutation: Patient with some mild tachycardia and anxious mood on my initial evaluation, her tenderness in left lower quadrant, no guarding. Patient is still very well- appearing. After IV fluids and Phenergan tachycardia resolved. Patient is much more calm on reevaluation. She denies any change in her symptoms. She was unable to provide her sample of stool. CBC so some mild leukocytosis, nonspecific. Chemistry unremarkable other than mild hypokalemia. Urinalysis indicates dehydration. Discussed with patient. I have a very low suspicion of acute abdomen based on her exam and diarrhea, no reported or noted pelvic pain or discharge, no guarding. She is already on Cipro for her diarrhea, no concerning exposures, unable to provide a stool sample on reevaluation again. At this time patient will have symptomatic medications, she already has a follow-up with her provider today, she was provided with resources to obtain a stool sample for testing, I discussed return precautions in detail, patient and significant other state understanding and agreement. - Vital Signs Vital signs: Temp Pulse Resp BP Pulse Ox 97.6 F 82 18 116/69 98 03/20/18 00:09 03/20/18 00:09 03/20/18 00:09 03/20/18 00:09 03/20/18 00:09 - Laboratory Result Diagrams: 03/19/18 22:10 03/19/18 22:10 Laboratory results interpreted by me: 03/19/18 03/19/18 03/19/18 22:10 22:10 22:10 WBC 11.6 H RDW 15.2 H Absolute Neutrophils 8.6 H Potassium 3.5 L AST 45 H Urine Ketones TRACE H Discharge - Discharge Clinical Impression: Dehydration Abdominal pain Qualifiers: Abdominal location: left lower quadrant Qualified Code(s): R10.32 - Left lower quadrant pain Diarrhea Qualifiers: Diarrhea type: unspecified type Qualified Code(s): R19.7 - Diarrhea, unspecified Condition: Stable Disposition: HOME, SELF-CARE Additional Instructions: Your workup shows dehydration, nonspecific otherwise. Your potassium is a little low, increase potassium in your diet. At the moment start with bland diet and slowly progress. Take Phenergan for nausea, take Bentyl for cramping, Imodium can help with diarrhea as well. Continue Cipro. Recommend performing the stool testing, bring back for testing. Follow-up with primary care. Return if you worsen including fever of 100.4 or greater, severe abdominal pain or swelling, bloody stools, or any other concerning or worsening symptoms. Prescriptions: Dicyclomine HCl [Bentyl 20 mg Tablet] 20 mg PO QID #20 tablet Promethazine HCl [Phenergan 25 mg Tablet] 1 tab PO Q6H PRN #20 tablet PRN Reason: Forms: Follow-Up Laboratory Testing Referrals: KALEB RODRIGES FNP-C [NO LOCAL MD] - Follow up as needed
[2018-03-19 22:57] LABS: ABSOLUTE EOSINOPHILS # (AUTO) 0.3 10^3/uL (0.0-0.6); ABSOLUTE LYMPHOCYTES (AUTO) 1.7 10^3/uL (0.5-4.7); ABSOLUTE NEUT (AUTO) 8.6 10^3/uL (1.7-8.2); BASOPHILS % (AUTO) 0.2 % (0-2); EOSINOPHILS % (AUTO) 2.6 % (0-6); HEMATOCRIT 37.7 % (36.0-47.0); HEMOGLOBIN 12.8 g/dL (12.0-15.5); LYMPHOCYTES % (AUTO) 14.8 % (13-45); MEAN CORPUSCULAR HEMOGLOBIN 28.7 pg (27.0-33.4); MEAN CORPUSCULAR HGB CONC 33.9 g/dL (32.0-36.0); MEAN CORPUSCULAR VOLUME 85 fl (80-97); MONOCYTES % (AUTO) 8.4 % (3-13); PLATELET COUNT 449 10^3/uL (150-450); RED BLOOD COUNT 4.45 10^6/uL (3.72-5.28); RED CELL DISTRIBUTION WIDTH 15.2 % (11.5-14.0); TOTAL CELLS COUNTED % (AUTO) 100 %; WHITE BLOOD COUNT 11.6 10^3/uL (4.0-10.5)
[2018-03-19 23:10] LABS: AMORPHOUS SEDIMENT,URINE 1+ /HPF; APPEARANCE,URINE TURBID; BILIRUBIN,URINE NEGATIVE (NEGATIVE); COLOR,URINE YELLOW; GLUCOSE, URINE NEGATIVE (NEGATIVE); KETONES,URINE TRACE mg/dL (NEGATIVE); LEUKOCYTE ESTERASE,URINE NEGATIVE (NEGATIVE); NITRITE,URINE NEGATIVE (NEGATIVE); PROTEIN,URINE NEGATIVE (NEGATIVE); URINE SPECIFIC GRAVITY 1.032; UROBILINOGEN,URINE NEGATIVE mg/dL (<2.0)
[2018-03-19 23:20] LABS: ALANINE AMINOTRANSFERASE 41 U/L (9-52); ALBUMIN 4.2 g/dL (3.5-5.0); ALKALINE PHOSPHATASE 83 U/L (38-126); ANION GAP 13 (5-19); ASPARTATE AMINO TRANSFERASE 45 U/L (14-36); BILIRUBIN,DIRECT 0.3 mg/dL (0.0-0.4); BILIRUBIN,TOTAL 0.5 mg/dL (0.2-1.3); BLOOD UREA NITROGEN 12 mg/dL (7-20); CALCIUM 8.7 mg/dL (8.4-10.2); CARBON DIOXIDE 25 mmol/L (22-30); CHLORIDE 105 mmol/L (98-107); GLUCOSE 98 mg/dL (75-110); POTASSIUM 3.5 mmol/L (3.6-5.0); SODIUM 142.7 mmol/L (137-145); TOTAL PROTEIN 7.6 g/dL (6.3-8.2)
[2018-03-20 00:15] VITALS: BP 116/69
== END 2018-03-20 00:10 | disposition home or self-care (01) ==
LOC: ER 20:48
DX: E86.0 Dehydration (principal); R19.7 Diarrhea, unspecified; R10.32 Left lower quadrant pain; I10 Essential (primary) hypertension; Z88.6 Allergy status to analgesic agent; Z91.040 Latex allergy status; Z87.891 Personal history of nicotine dependence; Z90.49 Acquired absence of other specified parts of digestive tract
CPT/HCPCS: 99284; 96372; 96360; 36415; 85025; 81025; 80053; 81001; J2550; J7030

== ENCOUNTER 2018-03-21 18:49 | Emergency (ER) | payer OTHER, MEDICAID ==
--- NOTE | 2018-03-21 19:57 | ER Document Report ---
ED General - General Chief Complaint: Abdominal Pain Stated Complaint: FEVER, ABDOMINAL PAIN Time Seen by Provider: 03/21/18 19:37 Mode of Arrival: Ambulatory Information source: Patient Notes: Patient is a 27-year-old female who presents with chief complaint of "drop and off labs". Patient declines any complaints. Patient initially reported to the triage nurse that she was having abdominal pain and fever however patient reports that this has been ongoing over the last week, reports that she is doing much better now and has not had a fever today. Patient reports that she does not want to be seen, she is only here to drop off her stool sample for the outpatient testing. Patient reports she has a follow-up appointment tomorrow with her primary care provider Dr. Wei. TRAVEL OUTSIDE OF THE [place] IN LAST 30 DAYS: No - Related Data Allergies/Adverse Reactions: morphine [Morphine] Allergy (Severe, Verified 03/19/18 21:53) Difficulty breathing/itch iodine [Iodine] Allergy (Intermediate, Verified 03/19/18 21:53) RASH latex [Latex] Allergy (Intermediate, Verified 03/19/18 21:53) RASH Past Medical History - General Information source: Patient - Social History Smoking Status: Never Smoker Frequency of alcohol use: None Drug Abuse: None Family History: CAD, COPD, CVA, DM, Hyperlipidemia, Hypertension - Past Medical History Cardiac Medical History: Reports: Hx Hypertension Denies: Hx Heart Attack Pulmonary Medical History: Reports: Hx Asthma - resolved Denies: Hx Bronchitis, Hx COPD, Hx Pneumonia Neurological Medical History: Reports: Hx Migraine. Denies: Hx Seizures Renal/ Medical History: Reports: Hx Pelvic Inflammatory Disease. Denies: Hx Peritoneal Dialysis Musculoskeletal Medical History: Denies Hx Arthritis, Reports Hx Musculoskeletal Trauma Psychiatric Medical History: Reports: Hx Depression, Hx Post Traumatic Stress Disorder Denies: Hx Bipolar Disorder Traumatic Medical History: Reports: Hx Fractures - Fractured ankle Past Surgical History: Reports: Hx Cholecystectomy, Hx Oral Surgery - wisdom tooth removal 07/2016, Hx Orthopedic Surgery - right ankle - Immunizations Immunizations up to date: Yes Hx Diphtheria, Pertussis, Tetanus Vaccination: Yes Review of Systems - Review of Systems Constitutional: No symptoms reported EENT: No symptoms reported Cardiovascular: No symptoms reported Respiratory: No symptoms reported Gastrointestinal: No symptoms reported Genitourinary: No symptoms reported Female Genitourinary: No symptoms reported Musculoskeletal: No symptoms reported Skin: No symptoms reported Hematologic/Lymphatic: No symptoms reported Neurological/Psychological: No symptoms reported Physical Exam - Vital signs Vitals: Temp Pulse Resp BP Pulse Ox 98.6 F 129 H 16 169/82 H 100 03/21/18 18:58 03/21/18 18:58 03/21/18 18:58 03/21/18 18:58 03/21/18 18:58 - Notes Notes: PHYSICAL EXAMINATION: GENERAL: Well-appearing, well-nourished and in no acute distress. HEAD: Atraumatic, normocephalic. EYES: Pupils equal round extraocular movements intact, conjunctiva are normal. NECK: Normal range of motion LUNGS: No respiratory distress Musculoskeletal: Normal range of motion NEUROLOGICAL: Normal speech, normal gait. PSYCH: Normal mood, normal affect. SKIN: Warm, Dry, normal turgor, no rashes or lesions noted. Course - Re-evaluation Re-evalutation: Patient has no complaints today. Patient reports that she is feeling much better after being placed on the Cipro several days ago. Patient reports that the only reason she is here today is to drop off her outpatient lab specimen as ordered by the previous provider who saw her 2 days ago. Patient declines the need for any workup today. - Vital Signs Vital signs: Temp Pulse Resp BP Pulse Ox 98.6 F 129 H 16 169/82 H 100 03/21/18 18:58 03/21/18 18:58 03/21/18 18:58 03/21/18 18:58 03/21/18 18:58 Discharge - Discharge Clinical Impression: Diarrhea Qualifiers: Diarrhea type: unspecified type Qualified Code(s): R19.7 - Diarrhea, unspecified Condition: Stable Disposition: HOME, SELF-CARE Additional Instructions: Thank you for dropping off your stool sample today. It is being sent to the lab for processing. In the future if you have an outpatient lab slip you may proceed to the lab directly to drop off your specimen you do not have to check into the emergency department for this. Referrals: DAHIANA WEI MD [Primary Care Provider] - Follow up as needed
[2018-03-21 20:26] VITALS: BP 155/80
== END 2018-03-21 20:29 | disposition home or self-care (01) ==
LOC: ER 18:49
DX: R19.7 Diarrhea, unspecified (principal); I10 Essential (primary) hypertension; Z88.5 Allergy status to narcotic agent; Z91.040 Latex allergy status
CPT/HCPCS: 99284

== ENCOUNTER 2018-04-12 11:53 | Emergency (ER) | payer OTHER, MEDICAID ==
--- NOTE | 2018-04-12 12:08 | ER Document Report ---
HPI - HPI Patient complains to provider of: Stepped in a hole and injured her left ankle Onset: Just prior to arrival Onset/Duration: Sudden Quality of pain: Achy Pain Level: 3 Context: 27-year-old female stepped in a hole that her dog dog in the backyard twisting her left ankle. She is crying in pain and states it hurts really bad. No previous injury. Associated Symptoms: None Exacerbated by: Movement, Walking Relieved by: Denies - ROS ROS below otherwise negative: Yes Systems Reviewed and Negative: Yes All other systems reviewed and negative - REPRODUCTIVE Reproductive: DENIES: : Past Medical History - General Information source: Patient - Social History Smoking Status: Unknown if Ever Smoked Lives with: Family Family History: CAD, COPD, CVA, DM, Hyperlipidemia, Hypertension - Past Medical History Cardiac Medical History: Reports: Hx Hypertension Pulmonary Medical History: Reports: Hx Asthma - resolved Neurological Medical History: Reports: Hx Migraine Renal/ Medical History: Reports: Hx Pelvic Inflammatory Disease Musculoskeletal Medical History: Reports Hx Musculoskeletal Trauma Psychiatric Medical History: Reports: Hx Depression, Hx Post Traumatic Stress Disorder Traumatic Medical History: Reports: Hx Fractures - Fractured ankle Past Surgical History: Reports: Hx Cholecystectomy, Hx Oral Surgery - wisdom tooth removal 07/2016, Hx Orthopedic Surgery - right ankle - Immunizations Immunizations up to date: Yes Hx Diphtheria, Pertussis, Tetanus Vaccination: Yes Vertical Provider Document - CONSTITUTIONAL Agree With Documented VS: Yes Exam Limitations: No Limitations - INFECTION CONTROL TRAVEL OUTSIDE OF THE [place] IN LAST 30 DAYS: No - MUSCULOSKELETAL/EXTREMETIES Musculoskeletal/Extremeties: MAEW, FROM, Tender - Dorsal proximal left foot and inferior to the left lateral malleolus, Edema - Minimal. negative: Eccymosis - NEURO Level of Consciousness: Awake Motor/Sensory: No Motor Deficit, No Sensory Deficit - DERM Integumentary: No Rash Course - Re-evaluation Re-evalutation: 04/12/18 X-rays negative per radiologist Procedures - Immobilization Left Ankle Time completed: 12:47 Pre-Proc Neuro Vasc Exam: Normal Immobilizer type: Posterior ankle Performed by: PCT Post-Proc Neuro Vasc Exam: Normal Alignment checked and good: Yes Discharge - Discharge Clinical Impression: Left ankle sprain Qualifiers: Encounter type: initial encounter Involved ligament of ankle: unspecified ligament Qualified Code(s): S93.402A - Sprain of unspecified ligament of left ankle, initial encounter Condition: Good Disposition: HOME, SELF-CARE Instructions: Acetaminophen, Use of Crutches (OM), Ibuprofen (General) (OM), Splint Precautions (OM), Sprained Ankle (OM) Additional Instructions: Ice, elevate, splint this week with crutches See orthopedic doctor if you are still having a problem the second week. Copy of negative imaging report given to you Return to the emergency room any worsening of symptoms or new symptoms. Tylenol up to 4000 mg a day for pain Motrin 800 mg 3 times a day for pain Prescriptions: Ibuprofen [Motrin 800 mg Tablet] 800 mg PO Q8HP PRN #30 tablet PRN Reason: Referrals: MEGHAN LOPEZ MD [ACTIVE STAFF] - Follow up as needed
[2018-04-12] MEDS ORDERED: ACETAMINOPHEN 325 MG TABLET PO ONE (12:15)
[2018-04-12] MEDS ORDERED: IBUPROFEN 600 MG TABLET PO ONE (12:15)
[2018-04-12] MEDS ORDERED: IBUPROFEN 800 MG TABLET PO ONE (12:23)
[2018-04-12 12:38] VITALS: BP 125/67
--- NOTE | 2018-04-12 12:42 | RADIOLOGY REPORT (SQ) ---
EXAM DESCRIPTION: FOOT LEFT COMPLETE COMPLETED DATE/TIME: 04/12/2018 12:18 pm REASON FOR STUDY: Pain COMPARISON: None. NUMBER OF VIEWS: Three views. TECHNIQUE: AP, lateral and oblique radiographic images acquired of the left foot. LIMITATIONS: None. FINDINGS: MINERALIZATION: Normal. BONES: No acute fracture or dislocation. No worrisome bone lesions. JOINTS: No effusions. SOFT TISSUES: No soft tissue swelling. No foreign body. OTHER: No other significant finding. IMPRESSION: NEGATIVE STUDY OF THE LEFT FOOT. NO RADIOGRAPHIC EVIDENCE OF ACUTE INJURY. TECHNICAL DOCUMENTATION: JOB ID: [id number] [employer]- All Rights Reserved Reading location - IP/workstation name: [email or web address]
--- NOTE | 2018-04-12 12:43 | RADIOLOGY REPORT (SQ) ---
EXAM DESCRIPTION: ANKLE LEFT COMPLETE COMPLETED DATE/TIME: 04/12/2018 12:18 pm REASON FOR STUDY: Pain COMPARISON: None. NUMBER OF VIEWS: Three views. TECHNIQUE: AP, lateral, and oblique radiographic images acquired of the left ankle. LIMITATIONS: None. FINDINGS: MINERALIZATION: Normal. BONES: No acute fracture or dislocation. No worrisome bone lesions. JOINTS: No effusions. SOFT TISSUES: No soft tissue swelling. No foreign body. OTHER: No other significant finding. IMPRESSION: NEGATIVE STUDY OF THE LEFT ANKLE. NO RADIOGRAPHIC EVIDENCE OF ACUTE INJURY. TECHNICAL DOCUMENTATION: JOB ID: [id number] [employer]- All Rights Reserved Reading location - IP/workstation name: [facility]-[email or web address]
== END 2018-04-12 12:49 | disposition home or self-care (01) ==
LOC: ER 11:53
DX: S93.402A Sprain of unspecified ligament of left ankle, initial encounter (principal); X50.0XXA Overexertion from strenuous movement or load, initial encounter; I10 Essential (primary) hypertension; Z90.49 Acquired absence of other specified parts of digestive tract
CPT/HCPCS: 99283

== ENCOUNTER → 2018-04-15 | Outpatient (CLI) | payer OTHER, MEDICAID ==
--- NOTE | 2018-04-15 11:54 | RADIOLOGY REPORT (SQ) ---
EXAM DESCRIPTION: ANKLE LEFT COMPLETE COMPLETED DATE/TIME: 04/15/2018 11:36 am REASON FOR STUDY: M25.572, ACUTE LEFT ANKLE PAIN COMPARISON: 04/12/2018. NUMBER OF VIEWS: Three views. TECHNIQUE: AP, lateral, and oblique radiographic images acquired of the left ankle. LIMITATIONS: None. FINDINGS: MINERALIZATION: Normal. BONES: No acute fracture or dislocation. No worrisome bone lesions. JOINTS: No effusions. SOFT TISSUES: No soft tissue swelling. No foreign body. OTHER: No other significant finding. IMPRESSION: NEGATIVE STUDY OF THE LEFT ANKLE. NO RADIOGRAPHIC EVIDENCE OF ACUTE INJURY. TECHNICAL DOCUMENTATION: JOB ID: [id number] [employer]- All Rights Reserved Reading location - IP/workstation name: [email or web address]
== END ==
LOC: OD 11:22
PROVIDERS: ATTEND Nurse Practitioner Acute Care
DX: M25.572 Pain in left ankle and joints of left foot (principal)

== ENCOUNTER → 2018-04-21 | Outpatient (CLI) | payer OTHER, MEDICAID ==
[2018-04-21 16:55] LABS: ABSOLUTE BASOPHILS # (AUTO) 0.1 10^3/uL (0.0-0.2); ABSOLUTE EOSINOPHILS # (AUTO) 0.2 10^3/uL (0.0-0.6); ABSOLUTE LYMPHOCYTES (AUTO) 2.4 10^3/uL (0.5-4.7); ABSOLUTE NEUT (AUTO) 10.4 10^3/uL (1.7-8.2); BASOPHILS % (AUTO) 0.6 % (0-2); EOSINOPHILS % (AUTO) 1.7 % (0-6); HEMATOCRIT 37.5 % (36.0-47.0); HEMOGLOBIN 12.5 g/dL (12.0-15.5); LYMPHOCYTES % (AUTO) 17.3 % (13-45); MEAN CORPUSCULAR HEMOGLOBIN 28.8 pg (27.0-33.4); MEAN CORPUSCULAR HGB CONC 33.3 g/dL (32.0-36.0); MEAN CORPUSCULAR VOLUME 87 fl (80-97); MONOCYTES % (AUTO) 6.8 % (3-13); PLATELET COUNT 395 10^3/uL (150-450); RED BLOOD COUNT 4.33 10^6/uL (3.72-5.28); SEGMENTED NEUTROPHILS % (AUTO) 73.6 % (42-78); TOTAL CELLS COUNTED % (AUTO) 100 %; WHITE BLOOD COUNT 14.1 10^3/uL (4.0-10.5)
== END ==
LOC: LAB 16:31
PROVIDERS: ATTEND Nurse Practitioner Acute Care
DX: N89.8 Other specified noninflammatory disorders of vagina (principal); R53.83 Other fatigue
CPT/HCPCS: 36415; 84443; 85025; 87086

== ENCOUNTER → 2018-04-26 | Outpatient (CLI) | payer SELFPAY ==
[2018-04-26 13:49] LABS: BACTERIA (WET MOUNT) 3+ BACTERIA SEEN; T.VAGINALIS (WET MOUNT) NO TRICHOMONAS SEEN; WBCS (WET MOUNT) 2+ WBCS SEEN; YEAST (WET MOUNT) NO YEAST SEEN
== END ==
LOC: LAB 13:33
PROVIDERS: ATTEND Nurse Practitioner Family
DX: M54.5 Low back pain (principal); N89.8 Other specified noninflammatory disorders of vagina
CPT/HCPCS: 87086; 87210

== ENCOUNTER 2018-05-04 16:17 | Emergency (ER) | payer SELFPAY | END 2018-05-04 16:25 | disposition left against medical advice (07) | LOC: ER 16:17 | DX: Z53.21 Procedure and treatment not carried out due to patient leaving prior to being seen by health care provider (principal) ==

== ENCOUNTER 2018-05-06 18:07 | Emergency (ER) | payer OTHER ==
[2018-05-06 19:21] LABS: HEMATOCRIT 34.7 % (36.0-47.0); MEAN CORPUSCULAR HEMOGLOBIN 29.6 pg (27.0-33.4); MEAN CORPUSCULAR HGB CONC 34.6 g/dL (32.0-36.0); MEAN CORPUSCULAR VOLUME 86 fl (80-97); PLATELET COUNT 414 10^3/uL (150-450); RED BLOOD COUNT 4.05 10^6/uL (3.72-5.28); RED CELL DISTRIBUTION WIDTH 13.2 % (11.5-14.0); WHITE BLOOD COUNT 8.5 10^3/uL (4.0-10.5)
--- NOTE | 2018-05-06 19:35 | ER Document Report ---
ED General - General Chief Complaint: Abdominal Cramping Stated Complaint: PELVIC PAIN Time Seen by Provider: 05/06/18 18:48 Notes: Chief complaint: Vaginal spotting History of complain:( obtained from----patient) 27 years old female with fourth with 2 living children 1 , presents today with 6 weeks with spotting and bleeding. Mild cramps. She checked a beta accident yesterday it was 215. Onset: As above gradual Duration: Gradual Severity: Mild Quality: Cramp Context: Exacerbating factor and relieving factors: REVIEW OF SYSTEMS: CONSTITUTIONAL : Denies fever, chills, or sweats. Denies recent illness. EENT: Denies eye, ear, throat, or mouth pain or symptoms. Denies nasal or sinus congestion or discharge. Denies throat, tongue, or mouth swelling or difficulty swallowing. CARDIOVASCULAR: Denies chest pain. Denies palpitations or racing or irregular heart beat. Denies ankle edema. RESPIRATORY: Denies cough, cold, or chest congestion. Denies shortness of breath, difficulty breathing, or wheezing. GASTROINTESTINAL: Denies distention. Denies nausea, vomiting, or diarrhea. Denies blood in vomitus, stools, or per rectum. Denies black, tarry stools. Denies constipation. GENITOURINARY: Denies difficulty urinating, painful urination, burning, frequency, blood in urine, or discharge. FEMALE GENITOURINARY: Denies vaginal bleeding, heavy or abnormal periods, irregular periods. Denies vaginal discharge or odor. MUSCULOSKELETAL: Denies back or neck pain or stiffness. Denies joint pain or swelling. SKIN: Denies rash, lesions or sores. HEMATOLOGIC : Denies easy bruising or bleeding. LYMPHATIC: Denies swollen, enlarged glands. NEUROLOGICAL: Denies confusion or altered mental status. Denies passing out or loss of consciousness. Denies dizziness or lightheadedness. Denies headache. Denies weakness or paralysis or loss of use of either side. Denies problems with gait or speech. Denies sensory loss, numbness, or tingling. Denies seizures. PSYCHIATRIC: Denies anxiety or stress. Denies depression, suicidal ideation, or homicidal ideation. ALL OTHER SYSTEMS REVIEWED AND NEGATIVE. PHYSICAL EXAMINATION: GENERAL: Well-appearing, well-nourished and in no acute distress. HEAD: Atraumatic, normocephalic. EYES: Pupils equal round and reactive to light, extraocular movements intact, conjunctiva are normal. ENT: Nares patent, oropharynx clear without exudates. Moist mucous membranes. NECK: Normal range of motion, supple without lymphadenopathy LUNGS: Breath sounds clear to auscultation bilaterally and equal. No wheezes rales or rhonchi. HEART: Regular rate and rhythm without murmurs ABDOMEN: Soft, nontender, nondistended abdomen. No guarding, no rebound. No masses appreciated. Examination of genitals-deferred Musculoskeletal: Normal range of motion, no pitting or edema. No cyanosis. NEUROLOGICAL: Cranial nerves grossly intact. Normal speech, normal gait. Normal sensory, motor exams PSYCH: Normal mood, normal affect. SKIN: Warm, Dry, normal turgor, no rashes or lesions noted. Dictation was performed using [employer] voice recognition software TRAVEL OUTSIDE OF THE [place] IN LAST 30 DAYS: No - HPI Notes: Dictated - Related Data Allergies/Adverse Reactions: morphine [Morphine] Allergy (Severe, Verified 05/06/18 18:08) Difficulty breathing/itch iodine [Iodine] Allergy (Intermediate, Verified 05/06/18 18:08) RASH latex [Latex] Allergy (Intermediate, Verified 05/06/18 18:08) RASH diphenhydramine [From Benadryl] Allergy (Verified 05/06/18 18:08) Past Medical History - Social History Smoking Status: Former Smoker Chew tobacco use (# tins/day): No Frequency of alcohol use: None Drug Abuse: None Family History: CAD, COPD, CVA, DM, Hyperlipidemia, Hypertension Patient has suicidal ideation: No Patient has homicidal ideation: No - Past Medical History Cardiac Medical History: Reports: Hx Hypertension Denies: Hx Heart Attack Pulmonary Medical History: Reports: Hx Asthma - resolved Denies: Hx Bronchitis, Hx COPD, Hx Pneumonia Neurological Medical History: Reports: Hx Migraine. Denies: Hx Seizures Renal/ Medical History: Reports: Hx Pelvic Inflammatory Disease. Denies: Hx Peritoneal Dialysis Musculoskeletal Medical History: Denies Hx Arthritis, Reports Hx Musculoskeletal Trauma Psychiatric Medical History: Reports: Hx Depression, Hx Post Traumatic Stress Disorder Denies: Hx Bipolar Disorder Traumatic Medical History: Reports: Hx Fractures - Fractured ankle Past Surgical History: Reports: Hx Cholecystectomy, Hx Oral Surgery - wisdom tooth removal 07/2016, Hx Orthopedic Surgery - right ankle - Immunizations Immunizations up to date: Yes Hx Diphtheria, Pertussis, Tetanus Vaccination: Yes Review of Systems - Review of Systems Notes: Dictated Physical Exam - Vital signs Vitals: Temp Pulse Resp BP Pulse Ox 97.7 F 115 H 16 156/102 H 100 05/06/18 18:11 05/06/18 18:11 05/06/18 18:11 05/06/18 18:11 05/06/18 18:11 - Notes Notes: Dictated Course - Vital Signs Vital signs: Temp Pulse Resp BP Pulse Ox 97.7 F 115 H 16 156/102 H 100 05/06/18 18:11 05/06/18 18:11 05/06/18 18:11 05/06/18 18:11 05/06/18 18:11 - Laboratory Result Diagrams: 05/06/18 19:07 Laboratory results interpreted by me: 05/06/18 19:07 Hct 34.7 L Discharge - Discharge Clinical Impression: Threatened affecting intrauterine Condition: Fair Instructions: Threatened Miscarriage ([facility])
[2018-05-06 21:56] VITALS: BP 156/107
== END 2018-05-06 23:04 | disposition home or self-care (01) ==
LOC: ER 18:07
DX: O20.0 Threatened abortion (principal); O16.1 Unspecified maternal hypertension, first trimester; O26.891 Other specified pregnancy related conditions, first trimester; R10.9 Unspecified abdominal pain; R10.2 Pelvic and perineal pain; Z3A.01 Less than 8 weeks gestation of pregnancy; Z87.891 Personal history of nicotine dependence
CPT/HCPCS: 36415; 84702; 85027; 99284

== ENCOUNTER 2018-05-11 19:03 | Emergency (ER) | payer OTHER ==
[2018-05-11 19:10] VITALS: BP 143/98
--- NOTE | 2018-05-11 20:40 | ER Document Report ---
ED GI/ - General Chief Complaint: Pelvic Pain Stated Complaint: PELVIC PAIN, FATIGUE Time Seen by Provider: 05/11/18 20:28 Notes: 27-year-old female patient emergency department. Patient has been 3 times. This is her fourth . Thinks that she is approximately 4-6 weeks . Has an OB appointment tomorrow. No vaginal bleeding. Was having some cramping but not severe. Had a miscarriage once before and states this is nothing like that. Otherwise just feels tired. Has not passed out. No severe pelvic pain or abdominal pain. No syncope. No other major symptoms at this time. TRAVEL OUTSIDE OF THE [place] IN LAST 30 DAYS: No - HPI Patient complains to provider of: Other - Mild crampy feeling in the lower abdomen. No vaginal bleeding. - Related Data Allergies/Adverse Reactions: morphine [Morphine] Allergy (Severe, Verified 05/11/18 19:05) Difficulty breathing/itch iodine [Iodine] Allergy (Intermediate, Verified 05/11/18 19:05) RASH latex [Latex] Allergy (Intermediate, Verified 05/11/18 19:05) RASH diphenhydramine [From Benadryl] Allergy (Verified 05/11/18 19:05) Past Medical History - General Information source: Patient - Social History Smoking Status: Unknown if Ever Smoked Cigarette use (# per day): No Frequency of alcohol use: None Drug Abuse: None Family History: CAD, COPD, CVA, DM, Hyperlipidemia, Hypertension Patient has suicidal ideation: No Patient has homicidal ideation: No - Past Medical History Cardiac Medical History: Reports: Hx Hypertension Denies: Hx Heart Attack Pulmonary Medical History: Reports: Hx Asthma - resolved Denies: Hx Bronchitis, Hx COPD, Hx Pneumonia Neurological Medical History: Reports: Hx Migraine. Denies: Hx Seizures Renal/ Medical History: Reports: Hx Pelvic Inflammatory Disease. Denies: Hx Peritoneal Dialysis Musculoskeletal Medical History: Denies Hx Arthritis, Reports Hx Musculoskeletal Trauma Psychiatric Medical History: Reports: Hx Depression, Hx Post Traumatic Stress Disorder Denies: Hx Bipolar Disorder Traumatic Medical History: Reports: Hx Fractures - Fractured ankle Past Surgical History: Reports: Hx Cholecystectomy, Hx Oral Surgery - wisdom tooth removal 07/2016, Hx Orthopedic Surgery - right ankle - Immunizations Immunizations up to date: Yes Hx Diphtheria, Pertussis, Tetanus Vaccination: Yes Review of Systems - Review of Systems Notes: Constitutional: denies: Chills, Diaphoresis, Fever, Malaise, Weakness EENT: denies: Eye discharge, Blurred vision, Tearing, Double vision, Nose congestion, Nose discharge, Throat swelling, Mouth pain Cardiovascular: denies: Palpitations, Heart racing, Orthopnea, Dyspnea, Chest pain Respiratory: denies: Cough, Hurts to breathe, Wheezing, Shortness of breath Gastrointestinal: denies: Abdominal pain, Diarrhea, Nausea, Vomiting, Black stools, bright red blood in stool Genitourinary: Mild pelvic sensation/cramp, no vaginal bleeding, positive test. Musculoskeletal: denies: Joint pain, Joint swelling, Muscle pain, Muscle stiffness, back pain Hematologic/Lymphatic: denies: Anemia, Easy bleeding, Easy bruising, Blood clots Neurological/Psychological: denies: Confusion, Dementia, Depression, Loss of consciousness Skin: No lesions, no masses, no skin breakdown, no abscesses Physical Exam - Vital signs Vitals: Temp Pulse BP Pulse Ox 97.5 F 90 143/98 H 100 05/11/18 19:08 05/11/18 19:08 05/11/18 19:08 05/11/18 19:08 Interpretation: Normal - Respiratory Respiratory status: No respiratory distress Chest status: Nontender Breath sounds: Normal Chest palpation: Normal - Cardiovascular Rhythm: Regular Heart sounds: Normal auscultation Murmur: No - Abdominal Inspection: Normal Distension: No distension Bowel sounds: Normal Tenderness: Nontender Organomegaly: No organomegaly - Extremities General upper extremity: Normal inspection, Nontender, Normal color, Normal ROM , Normal temperature General lower extremity: Normal inspection, Nontender, Normal color, Normal ROM , Normal temperature, Normal weight bearing. No: Rashida's sign - Neurological Neuro grossly intact: Yes Cognition: Normal Orientation: AAOx4 Celi Coma Scale Eye Opening: Spontaneous Celi Coma Scale Verbal: Oriented Celi Coma Scale Motor: Obeys Commands Noti Coma Scale Total: 15 Speech: Normal Motor strength normal: LUE, RUE, LLE, RLE Sensory: Normal - Skin Skin Temperature: Warm Skin Moisture: Dry Skin Color: Normal Course - Re-evaluation Re-evalutation: 05/11/18 20:43 This is a well-appearing female in no acute distress. No significant abdominal pain. Patient has a CELL ROOM OPERATOR appointment tomorrow morning at [facility]. I did a bedside ultrasound which showed no free fluid in the pelvis. She had a thickened endometrium and signs of an early IUP. I have given patient option based on her low risk for ectopic or cardiovascular collapse to have pelvic ultrasound and labs performed today or follow-up with CELL ROOM OPERATOR and tomorrow. I believe patient is stable for outpatient follow-up. Patient would like to have this done as an outpatient and in the clinic tomorrow. I will discharge her at this time with presumptive diagnosis of intrauterine - Vital Signs Vital signs: Temp Pulse Resp BP Pulse Ox 97.5 F 90 143/98 H 100 05/11/18 19:08 05/11/18 19:08 05/11/18 19:08 05/11/18 19:08 Discharge - Discharge Clinical Impression: Pelvic pain affecting in first trimester, antepartum Condition: Good Disposition: HOME, SELF-CARE Instructions: Pelvic Pain in ([facility]), Pelvic Pain in and Round Ligament Pain ([facility]) Additional Instructions: Please follow-up with your CELL ROOM OPERATOR appointment tomorrow. In the event that you develop severe pain, feeling like you are going to pass out, vaginal bleeding or any other concerns return immediately for repeat evaluation. For your reflux symptoms that you are having in I recommend taking Tums and / or Pepcid or Zantac. Please discuss these symptoms with your CELL ROOM OPERATOR as well. This is a very common symptom that people have been .
[2018-05-11] MEDS ORDERED: FAMOTIDINE 20 MG TABLET PO ONE (20:45)
== END 2018-05-11 20:45 | disposition home or self-care (01) ==
LOC: ER 19:03
DX: O26.891 Other specified pregnancy related conditions, first trimester (principal); R10.2 Pelvic and perineal pain; O26.811 Pregnancy related exhaustion and fatigue, first trimester; O16.1 Unspecified maternal hypertension, first trimester; Z3A.00 Weeks of gestation of pregnancy not specified; Z91.040 Latex allergy status; Z88.5 Allergy status to narcotic agent; Z88.8 Allergy status to other drugs, medicaments and biological substances
CPT/HCPCS: 99284

== ENCOUNTER 2018-05-12 11:25 | Emergency (ER) | payer OTHER ==
--- NOTE | 2018-05-12 12:00 | ER Document Report ---
ED Medical Screen (RME) - General Chief Complaint: Abdominal Pain Stated Complaint: PELVIC/BACK PAIN Time Seen by Provider: 05/12/18 11:55 Mode of Arrival: Ambulatory Information source: Patient, [facility] Records Notes: 27-year-old female A1 at approximately 5 weeks per last menstrual period April 03, 2018 presents for the second time in 2 days with complaint of pelvic cramping. Patient denies vaginal bleeding. 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 I have greeted and performed a rapid initial assessment of this patient. A comprehensive ED assessment and evaluation of the patient, analysis of test results and completion of medical decision making process we will be contacted by additional ED providers. PHYSICAL EXAMINATION: GENERAL: Well-appearing, well-nourished and in no acute distress. HEAD: Atraumatic, normocephalic. LUNGS: No respiratory distress Musculoskeletal: Normal range of motion NEUROLOGICAL: Normal speech, normal gait. PSYCH: Normal mood, normal affect. SKIN: Warm, Dry, normal turgor, no rashes or lesions noted. TRAVEL OUTSIDE OF THE [place] IN LAST 30 DAYS: No - HPI Onset: Other Onset/Duration: Intermittent Quality of pain: Cramping Severity: Moderate Associated Symptoms: None Exacerbated by: Denies Relieved by: Denies Similar symptoms previously: Yes Recently seen / treated by doctor: Yes - May 11, 2018 - Related Data Smoking: Non-smoker Frequency of alcohol use: None Drug Abuse: None Allergies/Adverse Reactions: morphine [Morphine] Allergy (Severe, Verified 05/12/18 11:27) Difficulty breathing/itch shellfish derived Allergy (Severe, Verified 05/12/18 11:56) Anaphylaxis iodine [Iodine] Allergy (Intermediate, Verified 05/12/18 11:27) RASH latex [Latex] Allergy (Intermediate, Verified 05/12/18 11:27) RASH diphenhydramine [From Benadryl] Allergy (Verified 05/12/18 11:27) Past Medical History - Social History Frequency of alcohol use: None Drug Abuse: None Family history: Reviewed & Not Pertinent, Hypertension, Other - copd - Past Medical History Cardiac Medical History: Reports: Hx Hypertension Denies: Hx Heart Attack Pulmonary Medical History: Reports: Hx Asthma - resolved Denies: Hx Bronchitis, Hx COPD, Hx Pneumonia Neurological Medical History: Reports: Hx Migraine. Denies: Hx Seizures Renal/ Medical History: Reports: Hx Pelvic Inflammatory Disease. Denies: Hx Peritoneal Dialysis Musculoskeltal Medical History: Denies Hx Arthritis, Reports Hx Musculoskeletal Trauma Psychiatric Medical History: Reports: Hx Depression, Hx Post Traumatic Stress Disorder Denies: Hx Bipolar Disorder Traumatic Medical History: Reports: Hx Fractures - Fractured ankle Past Surgical History: Reports: Hx Cholecystectomy, Hx Oral Surgery - wisdom tooth removal 07/2016, Hx Orthopedic Surgery - right ankle - Immunizations Immunizations up to date: Yes Hx Diphtheria, Pertussis, Tetanus Vaccination: Yes Physical Exam - Vital signs Vitals: Temp Pulse Resp BP Pulse Ox 98.7 F 88 16 140/87 H 99 05/12/18 11:29 05/12/18 11:29 05/12/18 11:29 05/12/18 11:29 05/12/18 11:29 Course - Vital Signs Vital signs: Temp Pulse Resp BP Pulse Ox 98.7 F 88 16 140/87 H 99 05/12/18 11:29 05/12/18 11:29 05/12/18 11:29 05/12/18 11:29 05/12/18 11:29 Doctor's Discharge - Discharge Referrals: JING CALDERÓN PA-C [Primary Care Provider] - Follow up as needed
[2018-05-12 12:47] LABS: APPEARANCE,URINE SLIGHTLY-CLOUDY; BILIRUBIN,URINE NEGATIVE (NEGATIVE); COLOR,URINE YELLOW; GLUCOSE, URINE NEGATIVE (NEGATIVE); KETONES,URINE NEGATIVE (NEGATIVE); LEUKOCYTE ESTERASE,URINE TRACE (NEGATIVE); NITRITE,URINE NEGATIVE (NEGATIVE); PROTEIN,URINE NEGATIVE (NEGATIVE); URINE SPECIFIC GRAVITY 1.023; UROBILINOGEN,URINE NEGATIVE mg/dL (<2.0)
[2018-05-12 14:08] LABS: ALANINE AMINOTRANSFERASE 46 U/L (9-52); ALBUMIN 4.3 g/dL (3.5-5.0); ALKALINE PHOSPHATASE 63 U/L (38-126); ANION GAP 10 (5-19); ASPARTATE AMINO TRANSFERASE 36 U/L (14-36); BILIRUBIN,DIRECT 0.3 mg/dL (0.0-0.4); BILIRUBIN,TOTAL 0.4 mg/dL (0.2-1.3); BLOOD UREA NITROGEN 6 mg/dL (7-20); CALCIUM 9.7 mg/dL (8.4-10.2); CARBON DIOXIDE 25 mmol/L (22-30); CHLORIDE 104 mmol/L (98-107); GLUCOSE 96 mg/dL (75-110); POTASSIUM 4.4 mmol/L (3.6-5.0); SODIUM 138.8 mmol/L (137-145); TOTAL PROTEIN 7.4 g/dL (6.3-8.2)
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
--- NOTE | 2018-05-12 14:55 | RADIOLOGY REPORT (SQ) ---
EXAM DESCRIPTION: U/S OB TRANSVAGINAL W/O DOP COMPLETED DATE/TIME: 05/12/2018 2:43 pm REASON FOR STUDY: cramping 6 wk preg COMPARISON: None. TECHNIQUE: Transvaginal static and realtime grayscale images acquired of the pelvis. Additional julio cesar cted spectral and color Doppler images recorded. All images stored on PACs. [id number] CLINICAL DATES: LMP 04/03/2018. 5 weeks 4 days. LIMITATIONS: None. FINDINGS: ULTRASOUND EGA: 5 weeks 2 days based upon gestational sac size. ULTRASOUND CEDRIC: 01/10/2019 CRL: pole not yet seen. FHR: No heart motion. SUBCHORIONIC BLEED: No SIZE OF BLEED: Not applicable. UTERUS: No masses. No anomalies. CERVICAL LENGTH: Not measured. Closed. RIGHT ADNEXA: Ovary not seen. No adnexal free fluid. No adnexal masses. LEFT ADNEXA: Ovary not seen. No adnexal free fluid. No adnexal masses. FREE FLUID: None. OTHER: No other significant finding. IMPRESSION: There appears to be an early intrauterine measuring 5 weeks 2 days by gestatio nal sac size. A yolk sac is present. pole is not yet seen. Follow-up as clinically indicated . Trimester of : First - 0 to 13 weeks. TECHNICAL DOCUMENTATION: JOB ID: [id number] [employer]- All Rights Reserved rev-01/01 Reading location - IP/workstation name: [email or web address]
[2018-05-12 15:51] VITALS: BP 146/97
== END 2018-05-12 15:52 | disposition home or self-care (01) ==
LOC: ER 11:25
DX: O26.91 Pregnancy related conditions, unspecified, first trimester (principal); R10.9 Unspecified abdominal pain; R10.2 Pelvic and perineal pain; M54.9 Dorsalgia, unspecified; Z3A.01 Less than 8 weeks gestation of pregnancy; I10 Essential (primary) hypertension; Z88.6 Allergy status to analgesic agent; Z91.040 Latex allergy status; Z90.49 Acquired absence of other specified parts of digestive tract
CPT/HCPCS: 36415; 76817; 80053; 81001; 84702; 99284

== ENCOUNTER 2018-05-24 01:09 | Emergency (ER) | payer OTHER ==
[2018-05-24] MEDS ORDERED: METOCLOPRAMIDE HCL 10 MG TABLET PO ONE (02:06)
[2018-05-24] MEDS ORDERED: MAG HYDROX/AL HYDROX/SIMETH SUSP 30 ML UDCUP PO ONE (02:07)
--- NOTE | 2018-05-24 03:18 | ER Document Report ---
ED General - General Chief Complaint: Chest Pain Stated Complaint: CHEST PAIN Time Seen by Provider: 05/24/18 02:02 Notes: Patient is a 28-year-old female was in a first trimester who presents with complaint of recurrent vomiting morning sickness at home. She is currently taking nothing for her nausea and vomiting. She says also since the vomiting started she is developed some acid reflux type symptoms and also some pain in her chest. She said the pain feels like reflux and gas type pain. She denies any difficulty breathing. She denies abdominal pain. No dysuria. No abnormal vaginal discharge or bleeding. She recently had an ultrasound done in the ER which showed a intrauterine gestational sac and yolk sac. TRAVEL OUTSIDE OF THE [place] IN LAST 30 DAYS: No - Related Data Allergies/Adverse Reactions: morphine [Morphine] Allergy (Severe, Verified 05/12/18 11:27) Difficulty breathing/itch shellfish derived Allergy (Severe, Verified 05/12/18 11:56) Anaphylaxis iodine [Iodine] Allergy (Intermediate, Verified 05/12/18 11:27) RASH latex [Latex] Allergy (Intermediate, Verified 05/12/18 11:27) RASH diphenhydramine [From Benadryl] Allergy (Verified 05/12/18 11:27) Past Medical History - Social History Smoking Status: Unknown if Ever Smoked Frequency of alcohol use: None Drug Abuse: None Family History: Reviewed & Not Pertinent, CAD, COPD, CVA, DM, Hyperlipidemia, Hypertension Patient has suicidal ideation: No Patient has homicidal ideation: No - Past Medical History Cardiac Medical History: Reports: Hx Hypertension Denies: Hx Heart Attack Pulmonary Medical History: Reports: Hx Asthma - resolved Denies: Hx Bronchitis, Hx COPD, Hx Pneumonia Neurological Medical History: Reports: Hx Migraine. Denies: Hx Seizures Renal/ Medical History: Reports: Hx Pelvic Inflammatory Disease. Denies: Hx Peritoneal Dialysis Musculoskeletal Medical History: Denies Hx Arthritis, Reports Hx Musculoskeletal Trauma Psychiatric Medical History: Reports: Hx Depression, Hx Post Traumatic Stress Disorder Denies: Hx Bipolar Disorder Traumatic Medical History: Reports: Hx Fractures - Fractured ankle Past Surgical History: Reports: Hx Cholecystectomy, Hx Oral Surgery - wisdom tooth removal 07/2016, Hx Orthopedic Surgery - right ankle - Immunizations Immunizations up to date: Yes Hx Diphtheria, Pertussis, Tetanus Vaccination: Yes Review of Systems - Review of Systems Notes: My Normal Review Basic REVIEW OF SYSTEMS: CONSTITUTIONAL : Denies fever, chills, or sweats. Denies recent illness. EENT: Denies eye, ear, throat, or mouth pain or symptoms. Denies nasal or sinus congestion. CARDIOVASCULAR: Pain into lower chest. RESPIRATORY: Denies cough, cold, or chest congestion. Denies shortness of breath, difficulty breathing, or wheezing. GASTROINTESTINAL: Denies abdominal pain. Has vomiting. GENITOURINARY: Denies difficulty urinating, painful urination, burning, frequency, or blood in urine. FEMALE GENITOURINARY: Denies vaginal bleeding, abnormal or irregular periods. LMP: Currently MUSCULOSKELETAL: Denies neck or back pain or joint pain or swelling. SKIN: Denies rash or skin lesions. NEUROLOGICAL: Denies altered mental status or loss of consciousness. ALL OTHER SYSTEMS REVIEWED AND NEGATIVE. Physical Exam - Vital signs Vitals: Temp Pulse Resp BP Pulse Ox 98.5 F 96 18 149/95 H 99 05/24/18 01:27 05/24/18 01:27 05/24/18 01:27 05/24/18 01:27 05/24/18 01:27 - Notes Notes: General Appearance: Well nourished, alert, cooperative, no acute distress, no obvious discomfort. Well-appearing. Vitals: reviewed, See vital signs table. Eyes: PERRL, EOMI, Conjuctiva clear Mouth: No decreasd moisture Lungs: No wheezing, No rales, No rhonci, No accessory muscle use, good air exchange bilaterally. Heart: Normal rate, Regular rythm, No murmur, no rub Abdomen: Normal BS, soft, No rigidity, No abdominal tenderness, No guarding, no rebound, no abdominal masses, no organomegaly Extremities: good pulses in all extremities, no swelling or tenderness in the extremities, no edema. Skin: warm, dry, appropriate color, no rash Neuro: speech clear, oriented x 3, normal affect, responds appropriately to questions. Course - Re-evaluation Re-evalutation: 05/25/18 03:33 Patient given Reglan and she said this helped significantly with her nausea and. She looks well. I do not suspect PE and that she does not have any tachypnea, tachycardia, hypoxemia, and her pain is not pleuritic. She herself says this pain feels more consistent with that of gas and acid reflux. I will place her on Pepcid. I have written a prescription for Reglan as well. I encouraged her return to ER immediately if she has intractable vomiting, worsening chest pain, any difficulty breathing, or she feels unwell. Patient agrees with plan and will be discharged home. Dictation of this chart was performed using voice recognition software; therefore, there may be some unintended grammatical errors. - Vital Signs Vital signs: Temp Pulse Resp BP Pulse Ox 98.7 F 76 18 124/78 100 05/24/18 03:35 05/24/18 03:35 05/24/18 03:35 05/24/18 03:35 05/24/18 03:35 - EKG Interpretation by Me Additional EKG results interpreted by me: 05/24/18 03:17 EKG is reviewed and interpreted by me. EKG shows sinus rhythm with a rate of [address] segment elevation or depression. No ischemic T wave inversions. CT interval, QRS duration, QTc intervals are within normal range. Old EKG for comparison is from September 08, 2017. Discharge - Discharge Clinical Impression: Vomiting Qualifiers: Vomiting type: unspecified Vomiting Intractability: non-intractable Nausea presence: with nausea Qualified Code(s): R11.2 - Nausea with vomiting, unspecified Chest pain Qualifiers: Chest pain type: unspecified Qualified Code(s): R07.9 - Chest pain, unspecified Condition: Good Disposition: HOME, SELF-CARE Additional Instructions: Please return to the ER immediately if you develop recurrent vomiting, worsening pain, fevers, and abdominal pain, vaginal bleeding, or if you feel that you are worsening in any way. Continue to take vitamins for your . Prescriptions: Famotidine [Pepcid 20 mg Tablet] 20 mg PO DAILY #30 tablet Metoclopramide HCl [Reglan 10 mg Tablet] 1 tab PO ASDIR PRN #25 tablet PRN Reason: Referrals: JNIG CALDERÓN PA-C [Primary Care Provider] - 05/26/18
[2018-05-24 03:56] VITALS: BP 124/78
--- NOTE | 2018-05-24 06:47 | EKG REPORT ---
SEVERITY:- ABNORMAL ECG - SINUS RHYTHM CONSIDER LEFT VENTRICULAR HYPERTROPHY : Confirmed by: Isabell Rojas 24-May-2018 06:46:59
== END 2018-05-24 03:40 | disposition home or self-care (01) ==
LOC: ER 01:09
DX: O21.9 Vomiting of pregnancy, unspecified (principal); O26.891 Other specified pregnancy related conditions, first trimester; R07.9 Chest pain, unspecified; O16.1 Unspecified maternal hypertension, first trimester; Z3A.00 Weeks of gestation of pregnancy not specified; Z88.8 Allergy status to other drugs, medicaments and biological substances; Z91.040 Latex allergy status; Z88.5 Allergy status to narcotic agent; Z87.892 Personal history of anaphylaxis; Z91.013 Allergy to seafood
CPT/HCPCS: 93005; 93010; 99283

== ENCOUNTER 2018-06-24 11:28 | Emergency (ER) | payer OTHER ==
--- NOTE | 2018-06-24 12:28 | ER Document Report ---
HPI - HPI Severity: Moderate Pain Level: 3 Context: x 3 days. states she states that she had hit head on a car. denies any neuro changes or change in loc. states right side of neck has been bothering her since then is 12 weeks . was placed on bp meds for pre eclampsia, states that it makes her dizzy. denies any n/v. eating and drinking without issues. states she needs a work noted. - CONSTITUTIONAL Constitutional: DENIES: Fever, Chills - NEURO Neurology: REPORTS: Headache - REPRODUCTIVE Reproductive: DENIES: : Past Medical History - General Information source: Patient - Social History Smoking Status: Never Smoker Chew tobacco use (# tins/day): No Frequency of alcohol use: None Drug Abuse: None Family History: Reviewed & Not Pertinent, CAD, COPD, CVA, DM, Hyperlipidemia, Hypertension Patient has suicidal ideation: No Patient has homicidal ideation: No - Past Medical History Cardiac Medical History: Reports: Hx Hypertension Denies: Hx Heart Attack Pulmonary Medical History: Reports: Hx Asthma - resolved Denies: Hx Bronchitis, Hx COPD, Hx Pneumonia Neurological Medical History: Reports: Hx Migraine. Denies: Hx Seizures Renal/ Medical History: Reports: Hx Pelvic Inflammatory Disease. Denies: Hx Peritoneal Dialysis Musculoskeletal Medical History: Denies Hx Arthritis, Reports Hx Musculoskeletal Trauma Psychiatric Medical History: Reports: Hx Depression, Hx Post Traumatic Stress Disorder Denies: Hx Bipolar Disorder Traumatic Medical History: Reports: Hx Fractures - Fractured ankle Past Surgical History: Reports: Hx Cholecystectomy, Hx Oral Surgery - wisdom tooth removal 07/2016, Hx Orthopedic Surgery - right ankle - Immunizations Immunizations up to date: Yes Hx Diphtheria, Pertussis, Tetanus Vaccination: Yes Vertical Provider Document - CONSTITUTIONAL Agree With Documented VS: Yes Exam Limitations: No Limitations Notes: PHYSICAL EXAMINATION: GENERAL: Well-appearing, well-nourished and in no acute distress. HEAD: Atraumatic, normocephalic. EYES: Pupils equal round and reactive to light, extraocular movements intact, conjunctiva are normal. ENT: Nares patent, oropharynx clear without exudates. Moist mucous membranes. NECK: Normal range of motion, supple without lymphadenopathy. full APROM of cervical spine, no noted cervical spinal tenderness on palpation from C4-C5 negative spurlings test. Video Control Operator + 2 bilaterally and equally. Dtr +2 bilaterally and equally in BUE. Perrla, full eomi. Face symmetrical. No rashes observed. Point tenderness to right paraspinal muscles near C6. No lymphadenopathy. Full APROM with shoulders. TM intact bilaterally. No meningismus. No noted lymphadenopathy. LUNGS: Breath sounds clear to auscultation bilaterally and equal. No wheezes rales or rhonchi. HEART: Regular rate and rhythm without murmurs ABDOMEN: Soft, nontender, nondistended abdomen. No guarding, no rebound. No masses appreciated. Female : deferred Musculoskeletal: Normal range of motion, no pitting or edema. No cyanosis. NEUROLOGICAL: Cranial nerves grossly intact. Normal speech, normal gait. Normal sensory, motor exams. PERRLA, EOMI. Full motor and sensory function throughout. Video Control Operator + 2 equal bilaterally in BUE. Tongue midline. No pronator drift. No ataxia. Neck with APROM. Raises eyebrows. Strength is 5 out of 5 in bilateral upper and lower extremities equally.Speaks in full sentences. No weakness on one side. Romberg gait steady able to walk straight line. Able to recall 5 objects. PSYCH: Normal mood, normal affect. SKIN: Warm, Dry, normal turgor, no rashes or lesions noted. - INFECTION CONTROL TRAVEL OUTSIDE OF THE [place] IN LAST 30 DAYS: No Course - Re-evaluation Re-evalutation: 06/24/18 12:49 20-year-old female presents for evaluation of hitting her head and neck on a car door approximately 3 days ago, denies head trauma or change in level consciousness. Reports her neck is been achy, is approximately 12 weeks . Patient been placed on blood pressure medication which is caused dizziness or preeclampsia. With a static normal, patient getting into her OB/ AUDIOLOGY ASSISTANT today for work note. Patient does have an appointment tomorrow with her OB/ AUDIOLOGY ASSISTANT at 9 AM. Neuro exam was normal, follow-up with [facility]. Likely has dizziness from starting blood pressure medication. I have reevaluated this patient multiple times and no significant life threatening changes, no signs of toxicity, sepsis or peritonitis are noted. The patient and I have discussed the diagnosis and risks, and we agree with discharging home and close follow- up. We also discussed returning to the Emergency Department immediately if new or worsening symptoms occur with the understanding that symptoms and presentations can change. At this time will discharge with return precautions and follow-up recommendations. Verbal discharge instructions given a the bedside and opportunity for questions given. We have discussed the symptoms which are most concerning (e.g., vomiting, severe headache, fever, changing or worsening pain) that necessitate immediate return. Medication warnings reviewed. All questions and concerns answered by this provider. Patient is in agreement with this plan and has verbalized understanding of return precautions and the need for primary care follow-up in the next 24-72 hours. Patient verbalized understanding of plan of care and agree with plan of care. 06/24/18 12:51 - Vital Signs Vital signs: Temp Pulse Resp BP Pulse Ox 97.7 F 88 16 138/60 H 100 06/24/18 11:43 06/24/18 11:43 06/24/18 11:43 06/24/18 11:43 06/24/18 11:43 Discharge - Discharge Clinical Impression: Acute neck sprain Qualifiers: Encounter type: initial encounter Qualified Code(s): S13.9XXA - Sprain of joints and ligaments of unspecified parts of neck, initial encounter Closed head injury Qualifiers: Encounter type: initial encounter Qualified Code(s): S09.90XA - Unspecified injury of head, initial encounter Condition: Stable Disposition: HOME, SELF-CARE Instructions: Headache ([facility]), Neck Injury (Cervical Strain) ([facility]), ( [facility]) Additional Instructions: Had appointment tomorrow with AL[facility] P[facility] 9 AM that was scheduled today by you for reevaluation. Apply heat 20 minutes on 20 minutes off take only Tylenol as needed because of . Return immediately for any new or worsening symptoms. Follow up with primary care provider, call tomorrow to make followup appointment. Forms: Return to Work Referrals: JING CALDERÓN PA-C [Primary Care Provider] - Follow up tomorrow
[2018-06-24 12:59] VITALS: BP 131/80
== END 2018-06-24 12:58 | disposition home or self-care (01) ==
LOC: ER 11:28
DX: O9A.211 Injury, poisoning and certain other consequences of external causes complicating pregnancy, first trimester (principal); S13.9XXA Sprain of joints and ligaments of unspecified parts of neck, initial encounter; S09.90XA Unspecified injury of head, initial encounter; W22.09XA Striking against other stationary object, initial encounter; I10 Essential (primary) hypertension; Z3A.12 12 weeks gestation of pregnancy; Z90.49 Acquired absence of other specified parts of digestive tract
CPT/HCPCS: 99283

== ENCOUNTER 2018-07-05 09:33 | Emergency (ER) | payer OTHER ==
[2018-07-05] MEDS ORDERED: FAMOTIDINE 20 MG TABLET PO ONE (10:07)
--- NOTE | 2018-07-05 10:07 | ER Document Report ---
ED Medical Screen (RME) - General Chief Complaint: Chest Pain Stated Complaint: CHEST DISCOMFORT Time Seen by Provider: 07/05/18 10:01 Notes: Patient is a 28-year-old female that is approximately 13 weeks gravid that presents to the emergency department for chief complaint of midsternal chest pain. She has seen her SUPERVISOR [employer]ATING [employer] for the symptoms, and was treated for reflux, but her symptoms have not resolved with some medications such as Tums and Mylanta and was advised to come to the ED. She does have history of PE with her past , although she states this is a much different sensation and pain. ROS: Other than noted above, the 12 point review of systems was reviewed with the patient and were negative, all pertinent findings are included in the HPI. PHYSICAL EXAMINATION: Vital signs reviewed. GENERAL: Well-appearing, well-nourished and in no acute distress. HEAD: Atraumatic, normocephalic. EYES: Pupils equal round extraocular movements intact, conjunctiva are normal. ENT: Nares patent NECK: Normal range of motion CV: Heart regular rate and rhythm LUNGS: No respiratory distress Musculoskeletal: Normal range of motion NEUROLOGICAL: Normal speech PSYCH: Normal mood, normal affect. MDM: Patient seen and examined for rapid initial assessment. Vital signs reviewed. EKG reviewed, no STEMI. A comprehensive ED assessment and evaluation of the patient, analysis of test results and completion of the medical decision making process will be conducted by additional ED providers. *Note is created using voice recognition software and may contain spelling, syntax or grammatical errors. TRAVEL OUTSIDE OF THE [place] IN LAST 30 DAYS: No - Related Data Allergies/Adverse Reactions: morphine [Morphine] Allergy (Severe, Verified 06/24/18 11:41) Difficulty breathing/itch shellfish derived Allergy (Severe, Verified 06/24/18 11:41) Anaphylaxis iodine [Iodine] Allergy (Intermediate, Verified 06/24/18 11:41) RASH latex [Latex] Allergy (Intermediate, Verified 06/24/18 11:41) RASH Past Medical History - Social History Chew tobacco use (# tins/day): No Frequency of alcohol use: None Drug Abuse: None Family history: Reviewed & Not Pertinent, Hypertension, Other - copd - Past Medical History Cardiac Medical History: Reports: Hx Hypertension Denies: Hx Heart Attack Pulmonary Medical History: Reports: Hx Asthma - resolved Denies: Hx Bronchitis, Hx COPD, Hx Pneumonia Neurological Medical History: Reports: Hx Migraine. Denies: Hx Seizures Renal/ Medical History: Reports: Hx Pelvic Inflammatory Disease. Denies: Hx Peritoneal Dialysis Musculoskeltal Medical History: Denies Hx Arthritis, Reports Hx Musculoskeletal Trauma Psychiatric Medical History: Reports: Hx Depression, Hx Post Traumatic Stress Disorder Denies: Hx Bipolar Disorder Traumatic Medical History: Reports: Hx Fractures - Fractured ankle Past Surgical History: Reports: Hx Cholecystectomy, Hx Oral Surgery - wisdom tooth removal 07/2016, Hx Orthopedic Surgery - right ankle - Immunizations Immunizations up to date: Yes Hx Diphtheria, Pertussis, Tetanus Vaccination: Yes Physical Exam - Vital signs Vitals: Temp Pulse Resp BP Pulse Ox 99.0 F 101 H 14 146/83 H 98 07/05/18 09:42 07/05/18 09:42 07/05/18 09:42 07/05/18 09:42 07/05/18 09:42 Course - Vital Signs Vital signs: Temp Pulse Resp BP Pulse Ox 99.0 F 101 H 14 146/83 H 98 07/05/18 09:42 07/05/18 09:42 07/05/18 09:42 07/05/18 09:42 07/05/18 09:42 Doctor's Discharge - Discharge Referrals: JING CALDERÓN PA-C [Primary Care Provider] - Follow up as needed
[2018-07-05 10:37] LABS: APPEARANCE,URINE CLOUDY; BILIRUBIN,URINE NEGATIVE (NEGATIVE); COLOR,URINE YELLOW; GLUCOSE, URINE NEGATIVE (NEGATIVE); KETONES,URINE NEGATIVE (NEGATIVE); LEUKOCYTE ESTERASE,URINE LARGE (NEGATIVE); NITRITE,URINE NEGATIVE (NEGATIVE); PROTEIN,URINE 30 mg/dL (NEGATIVE); URIC ACID CRYSTALS,URINE FEW /HPF; URINE SPECIFIC GRAVITY 1.032; UROBILINOGEN,URINE NEGATIVE mg/dL (<2.0)
--- NOTE | 2018-07-05 10:43 | ER Document Report ---
ED General - General Chief Complaint: Chest Pain Stated Complaint: CHEST DISCOMFORT Time Seen by Provider: 07/05/18 10:01 Notes: This is a 28-year-old female patient who is 14 weeks to the emergency department for evaluation of epigastric and chest pain. Patient states that she has having a lot of reflux. Was recently started on Pepcid. States that she wanted to get it checked out because the pain was persisting in her chest. Denies any shortness of breath. Denies any other major symptoms at this time. No vaginal bleeding. No complications with . Up-to-date on shots and immunizations. Allergic to morphine shellfish iodine and latex. Prior complications with previous pregnancies. Does not have a gallbladder. TRAVEL OUTSIDE OF THE [place] IN LAST 30 DAYS: No - HPI Onset: Last week Onset/Duration: Gradual, Constant Quality of pain: Fullness Severity: Moderate Pain Level: 2 Associated symptoms: None - Related Data Allergies/Adverse Reactions: morphine [Morphine] Allergy (Severe, Verified 06/24/18 11:41) Difficulty breathing/itch shellfish derived Allergy (Severe, Verified 06/24/18 11:41) Anaphylaxis iodine [Iodine] Allergy (Intermediate, Verified 06/24/18 11:41) RASH latex [Latex] Allergy (Intermediate, Verified 06/24/18 11:41) RASH Past Medical History - General Information source: Patient - Social History Smoking Status: Never Smoker Chew tobacco use (# tins/day): No Frequency of alcohol use: None Drug Abuse: None Lives with: Family Family History: Reviewed & Not Pertinent, CAD, COPD, CVA, DM, Hyperlipidemia, Hypertension Patient has suicidal ideation: No Patient has homicidal ideation: No - Past Medical History Cardiac Medical History: Reports: Hx Hypertension Denies: Hx Heart Attack Pulmonary Medical History: Reports: Hx Asthma - resolved Denies: Hx Bronchitis, Hx COPD, Hx Pneumonia Neurological Medical History: Reports: Hx Migraine. Denies: Hx Seizures Renal/ Medical History: Reports: Hx Pelvic Inflammatory Disease. Denies: Hx Peritoneal Dialysis Musculoskeletal Medical History: Denies Hx Arthritis, Reports Hx Musculoskeletal Trauma Psychiatric Medical History: Reports: Hx Depression, Hx Post Traumatic Stress Disorder Denies: Hx Bipolar Disorder Traumatic Medical History: Reports: Hx Fractures - Fractured ankle Past Surgical History: Reports: Hx Cholecystectomy, Hx Oral Surgery - wisdom tooth removal 07/2016, Hx Orthopedic Surgery - right ankle - Immunizations Immunizations up to date: Yes Hx Diphtheria, Pertussis, Tetanus Vaccination: Yes Review of Systems - Review of Systems Notes: Constitutional: denies: Chills, Diaphoresis, Fever, Malaise, Weakness EENT: denies: Eye discharge, Blurred vision, Tearing, Double vision, Nose congestion, Nose discharge, Throat swelling, Mouth pain Cardiovascular: denies: Palpitations, Heart racing, Orthopnea, Dyspnea,. Does complain of some mild chest pain Respiratory: denies: Cough, Hurts to breathe, Wheezing, Shortness of breath Gastrointestinal: denies: Abdominal pain, Diarrhea, Nausea, Vomiting, Black stools, bright red blood in stool. Does complain of reflux Genitourinary: denies: Burning, Dysuria, Discharge, Frequency, Flank pain, Hematuria Musculoskeletal: denies: Joint pain, Joint swelling, Muscle pain, Muscle stiffness, back pain Hematologic/Lymphatic: denies: Anemia, Easy bleeding, Easy bruising, Blood clots Neurological/Psychological: denies: Confusion, Dementia, Depression, Loss of consciousness Skin: No lesions, no masses, no skin breakdown, no abscesses Physical Exam - Vital signs Vitals: Temp Pulse Resp BP Pulse Ox 99.0 F 101 H 14 146/83 H 98 07/05/18 09:42 07/05/18 09:42 07/05/18 09:42 07/05/18 09:42 07/05/18 09:42 Interpretation: Normal - General General appearance: Appears well, Alert - HEENT Head: Normocephalic, Atraumatic Eyes: Normal Pupils: PERRL - Respiratory Respiratory status: No respiratory distress Chest status: Nontender Breath sounds: Normal Chest palpation: Normal - Cardiovascular Rhythm: Regular Heart sounds: Normal auscultation Murmur: No - Abdominal Inspection: Normal Distension: No distension Bowel sounds: Normal Tenderness: Nontender Organomegaly: No organomegaly - Back Back: Normal, Nontender - Extremities General upper extremity: Normal inspection, Nontender, Normal color, Normal ROM , Normal temperature General lower extremity: Normal inspection, Nontender, Normal color, Normal ROM , Normal temperature, Normal weight bearing. No: Rashida's sign - Neurological Neuro grossly intact: Yes Cognition: Normal Orientation: AAOx4 [place] Coma Scale Eye Opening: Spontaneous [place] Coma Scale Verbal: Oriented Celi Coma Scale Motor: Obeys Commands [place] Coma Scale Total: 15 Speech: Normal Motor strength normal: LUE, RUE, LLE, RLE Sensory: Normal - Psychological Associated symptoms: Normal affect, Normal mood - Skin Skin Temperature: Warm Skin Moisture: Dry Skin Color: Normal Course - Re-evaluation Re-evalutation: 07/05/18 12:13 Is a well-appearing 28-year-old female in no acute distress describing some reflux symptoms and who is . This would be something to be expected while . Does have a slightly elevated WBC count with leukocytes and WBCs in her urine. Concerning for UTI. We will treat this with Macrobid. Will advise that she continue with the Pepcid. Sleep upright or raise the head of the bed and talk to her DYER HELPER if the symptoms persist. Very low risk that this is any kind of heart or lung issue. Patient is not tachypneic. Not tachycardic. Not hypoxic. Heart score 0 07/05/18 12:15 Laboratory 07/05/18 07/05/18 07/05/18 09:59 10:42 10:42 WBC 11.3 H RBC 4.21 Hgb 12.8 Hct 36.2 MCV 86 MCH 30.4 MCHC 35.4 RDW 13.1 Plt Count 410 Seg Neutrophils % 74.6 Lymphocytes % 17.7 Monocytes % 6.4 Eosinophils % 0.6 Basophils % 0.7 Absolute Neutrophils 8.4 H Absolute Lymphocytes 2.0 Absolute Monocytes 0.7 Absolute Eosinophils 0.1 Absolute Basophils 0.1 PT 13.8 INR 1.01 Sodium Potassium Chloride Carbon Dioxide Anion Gap BUN Creatinine Est GFR ( Amer) Est GFR (Non-Af Amer) Glucose Calcium Total Bilirubin Direct Bilirubin Neonat Total Bilirubin Neonat Direct Bilirubin Neonat Indirect Bili AST ALT Alkaline Phosphatase Creatine Kinase CK-MB (CK-2) Troponin I NT-Pro-B Natriuret Pep Total Protein Albumin Lipase Urine Color YELLOW Urine Appearance CLOUDY Urine pH 5.0 Ur Specific [place] 1.032 Urine Protein 30 H Urine Glucose (UA) NEGATIVE Urine Ketones NEGATIVE Urine Blood NEGATIVE Urine Nitrite NEGATIVE Urine Bilirubin NEGATIVE Urine Urobilinogen NEGATIVE Ur Leukocyte Esterase LARGE H Urine WBC (Auto) 17 Urine RBC (Auto) 12 Urine Bacteria (Auto) TRACE Squamous Epi Cells Auto 24 Uric Acid Cryst (Auto) FEW Urine Mucus (Auto) MOD Urine Ascorbic Acid 40 H 11/07/05/18 07/05/18 10:42 10:42 10:42 WBC RBC Hgb Hct MCV MCH MCHC RDW Plt Count Seg Neutrophils % Lymphocytes % Monocytes % Eosinophils % Basophils % Absolute Neutrophils Absolute Lymphocytes Absolute Monocytes Absolute Eosinophils Absolute Basophils PT INR Sodium 139.3 Potassium 4.1 Chloride 104 Carbon Dioxide 24 Anion Gap 11 BUN 9 Creatinine 0.59 Est GFR ( Amer) > 60 Est GFR (Non-Af Amer) > 60 Glucose 82 Calcium 8.8 Total Bilirubin 0.6 Direct Bilirubin 0.4 Neonat Total Bilirubin Not Reportable Neonat Direct Bilirubin Not Reportable Neonat Indirect Bili Not Reportable AST 30 ALT 15 Alkaline Phosphatase 98 Creatine Kinase 36 CK-MB (CK-2) < 0.22 Troponin I < 0.012 NT-Pro-B Natriuret Pep 18 Total Protein 7.9 Albumin 4.1 Lipase 60.5 Urine Color Urine Appearance Urine pH Ur Specific [place] Urine Protein Urine Glucose (UA) Urine Ketones Urine Blood Urine Nitrite Urine Bilirubin Urine Urobilinogen Ur Leukocyte Esterase Urine WBC (Auto) Urine RBC (Auto) Urine Bacteria (Auto) Squamous Epi Cells Auto Uric Acid Cryst (Auto) Urine Mucus (Auto) Urine Ascorbic Acid - Vital Signs Vital signs: Temp Pulse Resp BP Pulse Ox 99.0 F 101 H 14 146/83 H 98 07/05/18 09:42 07/05/18 09:42 07/05/18 09:42 07/05/18 09:42 07/05/18 10:52 - Laboratory Result Diagrams: 07/05/18 10:42 07/05/18 10:42 Laboratory results interpreted by me: 07/05/18 07/05/18 09:59 10:42 WBC 11.3 H Absolute Neutrophils 8.4 H Urine Protein 30 H Ur Leukocyte Esterase LARGE H Urine Ascorbic Acid 40 H - EKG Interpretation by Tx EKG shows normal: Sinus rhythm, [place], Intervals, QRS Complexes, ST-T Waves Discharge - Discharge Clinical Impression: Reflux esophagitis Urinary tract infection Qualifiers: Urinary tract infection type: site unspecified Hematuria presence: without hematuria Qualified Code(s): N39.0 - Urinary tract infection, site not specified Condition: Good Disposition: HOME, SELF-CARE Instructions: Reflux Disease (GERD) ([facility]), Nitrofurantoin ([facility]) Prescriptions: Nitrofurantoin/Nitrofuran Mac [Macrobid 100 mg Capsule] 1 tab PO BID #20 capsule Referrals: JING CALDERÓN PA-C [Primary Care Provider] - Follow up as needed
[2018-07-05 10:55] LABS: ABSOLUTE BASOPHILS # (AUTO) 0.1 10^3/uL (0.0-0.2); ABSOLUTE EOSINOPHILS # (AUTO) 0.1 10^3/uL (0.0-0.6); ABSOLUTE MONOCYTES (AUTO) 0.7 10^3/uL (0.1-1.4); ABSOLUTE NEUT (AUTO) 8.4 10^3/uL (1.7-8.2); BASOPHILS % (AUTO) 0.7 % (0-2); EOSINOPHILS % (AUTO) 0.6 % (0-6); HEMATOCRIT 36.2 % (36.0-47.0); HEMOGLOBIN 12.8 g/dL (12.0-15.5); LYMPHOCYTES % (AUTO) 17.7 % (13-45); MEAN CORPUSCULAR HEMOGLOBIN 30.4 pg (27.0-33.4); MEAN CORPUSCULAR HGB CONC 35.4 g/dL (32.0-36.0); MEAN CORPUSCULAR VOLUME 86 fl (80-97); MONOCYTES % (AUTO) 6.4 % (3-13); PLATELET COUNT 410 10^3/uL (150-450); RED BLOOD COUNT 4.21 10^6/uL (3.72-5.28); RED CELL DISTRIBUTION WIDTH 13.1 % (11.5-14.0); SEGMENTED NEUTROPHILS % (AUTO) 74.6 % (42-78); TOTAL CELLS COUNTED % (AUTO) 100 %; WHITE BLOOD COUNT 11.3 10^3/uL (4.0-10.5)
[2018-07-05] MEDS ORDERED: FAMOTIDINE INJ/PF 20 MG/2 ML SDV IV ONE (10:55)
[2018-07-05 11:16] LABS: ALANINE AMINOTRANSFERASE 15 U/L (9-52); ALBUMIN 4.1 g/dL (3.5-5.0); ALKALINE PHOSPHATASE 98 U/L (38-126); ANION GAP 11 (5-19); ASPARTATE AMINO TRANSFERASE 30 U/L (14-36); BILIRUBIN,DIRECT 0.4 mg/dL (0.0-0.4); BILIRUBIN,TOTAL 0.6 mg/dL (0.2-1.3); BLOOD UREA NITROGEN 9 mg/dL (7-20); CALCIUM 8.8 mg/dL (8.4-10.2); CARBON DIOXIDE 24 mmol/L (22-30); CHLORIDE 104 mmol/L (98-107); CREATINE KINASE 36 U/L (30-135); GLUCOSE 82 mg/dL (75-110); POTASSIUM 4.1 mmol/L (3.6-5.0); SODIUM 139.3 mmol/L (137-145); TOTAL PROTEIN 7.9 g/dL (6.3-8.2)
[2018-07-05 11:28] LABS: NT PRO BNP 18 pg/mL (<125)
[2018-07-05 11:31] LABS: CREATINE KINASE MB < 0.22 ng/mL (<4.55); TROPONIN I < 0.012 ng/mL
[2018-07-05 11:32] LABS: INTERNATIONAL RATION (INR) 1.01; PROTHROMBIN TIME 13.8 SEC (11.4-15.4)
[2018-07-05] MEDS ORDERED: NITROFURANTOIN MONOHYD/M-CRYST 100 MG CAPSULE PO ONE (12:10)
[2018-07-05 12:42] VITALS: BP 121/79
--- NOTE | 2018-07-05 21:55 | EKG REPORT ---
SEVERITY:- ABNORMAL ECG - SINUS RHYTHM CONSIDER LEFT VENTRICULAR HYPERTROPHY : Confirmed by: Sunita Hudson MD 05-Jul-2018 21:54:23
== END 2018-07-05 12:42 | disposition home or self-care (01) ==
LOC: ER 09:33
DX: O99.612 Diseases of the digestive system complicating pregnancy, second trimester (principal); K21.0 Gastro-esophageal reflux disease with esophagitis; O23.42 Unspecified infection of urinary tract in pregnancy, second trimester; O16.2 Unspecified maternal hypertension, second trimester; O26.892 Other specified pregnancy related conditions, second trimester; R07.9 Chest pain, unspecified; R10.13 Epigastric pain; O99.512 Diseases of the respiratory system complicating pregnancy, second trimester; J45.909 Unspecified asthma, uncomplicated; Z3A.14 14 weeks gestation of pregnancy
CPT/HCPCS: 93005; 99285; 36415; 87086; 82553; 82550; 83690; 85025; 85610; 80053; 81001; 84484; 83880; 93010; J8499

== ENCOUNTER 2018-07-11 15:37 | Emergency (ER) | payer OTHER ==
--- NOTE | 2018-07-11 16:06 | ER Document Report ---
ED Medical Screen (RME) - General Chief Complaint: Chest Pain Stated Complaint: CHEST PAIN Time Seen by Provider: 07/11/18 15:54 Notes: 28-year-old female who is a a 1 who is approximately 14 weeks along. Patient states that she has a history of preeclampsia, her preeclampsia onset in her first at 18 weeks, and her second at 15 weeks and in 1 of her she seized. She does not recall when during that was, states that she did not have an emergent but they instead gave her magnesium and she was able to deliver vaginally. Patient presented to the emergency department today because she is concerned that her blood pressure is in the 170s, she has been having chest pain intermittently that radiates to the right side of her neck and her right jaw and she has been having intermittent dizzy spells and episodes of near syncope. Patient does admit that she intermittently has elevated blood pressure outside of as well as during . Patient has been following with Dr. Rios at [facility] [place]. TRAVEL OUTSIDE OF THE [place] IN LAST 30 DAYS: No - Related Data Allergies/Adverse Reactions: morphine [Morphine] Allergy (Severe, Verified 06/24/18 11:41) Difficulty breathing/itch shellfish derived Allergy (Severe, Verified 06/24/18 11:41) Anaphylaxis iodine [Iodine] Allergy (Intermediate, Verified 06/24/18 11:41) RASH latex [Latex] Allergy (Intermediate, Verified 06/24/18 11:41) RASH Past Medical History - General Information source: Patient - Social History Family history: Reviewed & Not Pertinent, Hypertension, Other - copd - Past Medical History Cardiac Medical History: Reports: Hx Hypertension Denies: Hx Heart Attack Pulmonary Medical History: Reports: Hx Asthma - resolved Denies: Hx Bronchitis, Hx COPD, Hx Pneumonia Neurological Medical History: Reports: Hx Migraine. Denies: Hx Seizures Renal/ Medical History: Reports: Hx Pelvic Inflammatory Disease. Denies: Hx Peritoneal Dialysis Musculoskeltal Medical History: Denies Hx Arthritis, Reports Hx Musculoskeletal Trauma Psychiatric Medical History: Reports: Hx Depression, Hx Post Traumatic Stress Disorder Denies: Hx Bipolar Disorder Traumatic Medical History: Reports: Hx Fractures - Fractured ankle Past Surgical History: Reports: Hx Cholecystectomy, Hx Oral Surgery - wisdom tooth removal 07/2016, Hx Orthopedic Surgery - right ankle - Immunizations Immunizations up to date: Yes Hx Diphtheria, Pertussis, Tetanus Vaccination: Yes Review of Systems - Review of Systems Constitutional: See HPI Cardiovascular: See HPI Physical Exam - Vital signs Interpretation: Hypertensive, Tachycardic - General General appearance: Alert, Anxious - HEENT Head: Normocephalic Eyes: Normal Pupils: PERRL - Respiratory Respiratory status: No respiratory distress Chest status: Nontender Breath sounds: Normal Chest palpation: Normal - Cardiovascular Rhythm: Regular, Tachycardia Heart sounds: Normal auscultation Murmur: No - Extremities Notes: 3+ deep tendon reflexes bilateral patellar tendons. No edema. Course - Re-evaluation Re-evalutation: 07/11/18 16:06 Pre-eclampsia labs were ordered even though she is very early on in for this to occur patient states she developed preeclampsia at 18 weeks and 15 weeks therefore think it is prudent to order these labs at this point. I do not feel the patient's symptoms are severe enough at this point to order magnesium. Doctor's Discharge - Discharge Referrals: JING CALDERÓN PA-C [Primary Care Provider] - Follow up as needed
--- NOTE | 2018-07-11 16:32 | ER Document Report ---
ED General - General Chief Complaint: Chest Pain Stated Complaint: CHEST PAIN Time Seen by Provider: 07/11/18 15:54 Notes: Patient is a 28 year old female that presents to the emergency department for chief complaint of chest pain or shortness of breath. Patient is approximately 14 weeks gravid, , states that she has been having 10 days of on and off chest pain, and worsening shortness of breath, to the point that she felt she needed to come to the emergency department. She is not been able to see the OB/ [employer] RE[employer]DER's or been able to get a hold of them due to the holiday weekend. She does have a history of PE with 1 of her past pregnancies in 2009. She did not have DVT at that time. She feels that this is similar, she has worsening pain in the right side of her chest with taking a deep breath. She also reports she is had eclampsia and preeclampsia with prior pregnancies, she has had hypertension with this , and previously was on labetalol which they took her off of the other pressure was doing well. Past Medical History: History of PE, and eclampsia with prior pregnancies Past Surgical History: Cholecystectomy, ankle surgery Social History: Denies tobacco, alcohol or illicit drug use. Family History: Reviewed and noncontributory for presenting illness Allergies: Reviewed, see documented allergy list. REVIEW OF SYSTEMS: Other than noted above, the 12 point review of systems was reviewed with the patient and were negative, all pertinent findings are included in the HPI. PHYSICAL EXAMINATION: Vital signs reviewed, nursing noted reviewed. GENERAL: Well-appearing, well-nourished and appears anxious on exam HEAD: Atraumatic, normocephalic. EYES: Eyes appear normal, extraocular movements intact, sclera anicteric, conjunctiva are normal. ENT: nares patent, oropharynx clear without exudates. Moist mucous membranes. NECK: Normal range of motion, supple without lymphadenopathy LUNGS: Breath sounds clear to auscultation bilaterally and equal. No wheezes rales or rhonchi. HEART: Heart rate tachycardic, regular rhythm, no audible murmur ABDOMEN: Soft, gravid, nontender, normoactive bowel sounds. No rebound, guarding, or rigidity. No masses appreciated. EXTREMITIES: Nontender, good range of motion, no pitting or edema. NEUROLOGICAL: No focal neurological deficits. Moves all extremities spontaneously Motor and sensory grossly intact on exam. PSYCH: Appears anxious on exam, pressured speech, but answering questions appropriately, and cooperative. SKIN: Warm, Dry, normal turgor, no rashes or lesions noted on exposed skin TRAVEL OUTSIDE OF THE [place] IN LAST 30 DAYS: No - Related Data Allergies/Adverse Reactions: morphine [Morphine] Allergy (Severe, Verified 06/24/18 11:41) Difficulty breathing/itch shellfish derived Allergy (Severe, Verified 06/24/18 11:41) Anaphylaxis iodine [Iodine] Allergy (Intermediate, Verified 06/24/18 11:41) RASH latex [Latex] Allergy (Intermediate, Verified 06/24/18 11:41) RASH Past Medical History - General Information source: Patient - Social History Smoking Status: Never Smoker Frequency of alcohol use: None Drug Abuse: None Family History: Reviewed & Not Pertinent, CAD, COPD, CVA, DM, Hyperlipidemia, Hypertension Patient has suicidal ideation: No Patient has homicidal ideation: No - Past Medical History Cardiac Medical History: Reports: Hx Hypertension Denies: Hx Heart Attack Pulmonary Medical History: Reports: Hx Asthma - resolved Denies: Hx Bronchitis, Hx COPD, Hx Pneumonia Neurological Medical History: Reports: Hx Migraine. Denies: Hx Seizures Renal/ Medical History: Reports: Hx Pelvic Inflammatory Disease. Denies: Hx Peritoneal Dialysis Musculoskeletal Medical History: Denies Hx Arthritis, Reports Hx Musculoskeletal Trauma Psychiatric Medical History: Reports: Hx Depression, Hx Post Traumatic Stress Disorder Denies: Hx Bipolar Disorder Traumatic Medical History: Reports: Hx Fractures - Fractured ankle Past Surgical History: Reports: Hx Cholecystectomy, Hx Oral Surgery - wisdom tooth removal 07/2016, Hx Orthopedic Surgery - right ankle - Immunizations Immunizations up to date: Yes Hx Diphtheria, Pertussis, Tetanus Vaccination: Yes Physical Exam - Vital signs Vitals: Temp Pulse Resp BP Pulse Ox 98.1 F 97 16 125/65 100 07/11/18 19:22 07/11/18 19:22 07/11/18 19:22 07/11/18 19:22 07/11/18 19:22 Course - Re-evaluation Re-evalutation: Patient seen and examined, vital signs reviewed, patient noted to be tachycardic , and hypertensive, and . Patient is high risk for PE in , she had a history of this in the past in 2009, she has been having dyspnea on exertion, pleuritic chest pain, and tachycardia, her d-dimer was elevated, therefore CT angiogram of the chest was ordered after long discussion with the patient, described the risks and benefits of ionizing radiation, and she agreed to proceed with a CT angiogram of the chest. CTA was performed, and unfortunately it had suboptimal bolus timing, and was nondiagnostic for PE, I discussed this with the echocardiograph technician, who stated that they did give bolus timing, discussed with the radiologist, and they are advised not to give any additional bolus, and this did result in suboptimal bolus timing, the CT was reviewed by separate radiologist, and confirmed to be nondiagnostic, I did review this myself, and there was no IVP dye, outside of the right ventricle. I discussed this with the patient, described to her that, that she is still high risk, and that we would likely need to repeat her CT angiogram of her chest , to confirm or rule out pulmonary embolism, patient was agreeable to this, again the patient's abdomen will be shielded as much as possible, to minimize ionizing radiation to the developing fetus. Patient's repeat CT angiogram of the chest was negative for PE, I discussed with her the results, the patient did feel relief, her blood work was otherwise unremarkable negative, and normal BNP, negative troponin, her symptoms may be GI related versus musculoskeletal, she is advised to follow-up with her [employer] BALL KNOCK OUT WORKER, regarding her blood pressure, did place a call out to the [facility], to discuss this with the patient's [employer] BALL KNOCK OUT WORKER group, did not receive a call back. She was advised to follow-up with them to discuss placing her back on labetalol for blood pressure management during given her high risk of preeclampsia and eclampsia as she had this in prior . Laboratory 07/11/18 07/11/18 07/11/18 16:10 16:10 16:10 WBC 13.1 H RBC 4.27 Hgb 12.8 Hct 36.6 MCV 86 MCH 30.0 MCHC 34.9 RDW 13.0 Plt Count 418 Seg Neutrophils % 74.4 Lymphocytes % 17.4 Monocytes % 7.2 Eosinophils % 0.9 Basophils % 0.1 Absolute Neutrophils 9.7 H Absolute Lymphocytes 2.3 Absolute Monocytes 0.9 Absolute Eosinophils 0.1 Absolute Basophils 0.0 Fibrinogen 443 D-Dimer 0.54 H Sodium 139.6 Potassium 3.9 Chloride 102 Carbon Dioxide 24 Anion Gap 14 BUN 7 Creatinine 0.54 Est GFR ( Amer) > 60 Est GFR (Non-Af Amer) > 60 Glucose 91 Uric Acid 2.5 Calcium 9.5 Total Bilirubin 0.2 Direct Bilirubin 0.1 Neonat Total Bilirubin Not Reportable Neonat Direct Bilirubin Not Reportable Neonat Indirect Bili Not Reportable AST 30 ALT 26 Alkaline Phosphatase 113 Lactate Dehydrogenase 105 L Creatine Kinase 33 CK-MB (CK-2) Troponin I NT-Pro-B Natriuret Pep Total Protein 7.4 Albumin 4.0 Urine Color Urine Appearance Urine pH Ur Specific [place] Urine Protein Urine Glucose (UA) Urine Ketones Urine Blood Urine Nitrite Urine Bilirubin Urine Urobilinogen Ur Leukocyte Esterase Urine WBC (Auto) Urine RBC (Auto) Squamous Epi Cells Auto Urine Mucus (Auto) Urine Ascorbic Acid 07/11/18 07/11/18 07/11/18 16:10 16:10 16:10 WBC RBC Hgb Hct MCV MCH MCHC RDW Plt Count Seg Neutrophils % Lymphocytes % Monocytes % Eosinophils % Basophils % Absolute Neutrophils Absolute Lymphocytes Absolute Monocytes Absolute Eosinophils Absolute Basophils Fibrinogen D-Dimer Sodium Potassium Chloride Carbon Dioxide Anion Gap BUN Creatinine Est GFR ( Amer) Est GFR (Non-Af Amer) Glucose Uric Acid Calcium Total Bilirubin Direct Bilirubin Neonat Total Bilirubin Neonat Direct Bilirubin Neonat Indirect Bili AST ALT Alkaline Phosphatase Lactate Dehydrogenase Creatine Kinase CK-MB (CK-2) < 0.22 Troponin I < 0.012 NT-Pro-B Natriuret Pep 43 Total Protein Albumin Urine Color STRAW Urine Appearance CLEAR Urine pH 7.0 Ur Specific [place] 1.001 Urine Protein NEGATIVE Urine Glucose (UA) NEGATIVE Urine Ketones NEGATIVE Urine Blood NEGATIVE Urine Nitrite NEGATIVE Urine Bilirubin NEGATIVE Urine Urobilinogen NEGATIVE Ur Leukocyte Esterase TRACE H Urine WBC (Auto) 0 Urine RBC (Auto) 0 Squamous Epi Cells Auto 4 Urine Mucus (Auto) RARE Urine Ascorbic Acid NEGATIVE Chest X-Ray 07/11/18 16:03 IMPRESSION: NO ACUTE RADIOGRAPHIC FINDING IN THE CHEST. Chest/Abdomen CTA 07/11/18 18:04 IMPRESSION: NORMAL CTA OF THE CHEST. NO PULMONARY EMBOLI. - Vital Signs Vital signs: Temp Pulse Resp BP Pulse Ox 98.1 F 97 16 125/65 100 07/11/18 19:22 07/11/18 19:22 07/11/18 19:22 07/11/18 19:22 07/11/18 19:22 - Laboratory Result Diagrams: 07/11/18 16:10 07/11/18 16:10 Laboratory results interpreted by me: 07/11/18 07/11/18 07/11/18 16:10 16:10 16:10 WBC 13.1 H Absolute Neutrophils 9.7 H D-Dimer 0.54 H Lactate Dehydrogenase 105 L Ur Leukocyte Esterase 07/11/18 16:10 WBC Absolute Neutrophils D-Dimer Lactate Dehydrogenase Ur Leukocyte Esterase TRACE H - EKG Interpretation by Me Additional EKG results interpreted by me: EKG demonstrates sinus tachycardia with a ventricular rate of 101 bpm, slight left axis deviation, QTC 457 ms, nonspecific T wave inversion in lead III, with predominantly negative QRS, normal variant, this is compared with prior EKG from 07/05/2018, without significant change. Discharge - Discharge Clinical Impression: Chest pain Qualifiers: Chest pain type: unspecified Qualified Code(s): R07.9 - Chest pain, unspecified Dyspnea Qualifiers: Dyspnea type: unspecified Qualified Code(s): R06.00 - Dyspnea, unspecified Hypertension affecting Qualifiers: Trimester: second trimester Qualified Code(s): O16.2 - Unspecified maternal hypertension, second trimester Condition: Stable Disposition: HOME, SELF-CARE Instructions: Hypertension in ([facility]) Additional Instructions: You need to follow-up with the W[employer] BALL KNOCK OUT WORKER, and call for an appointment, to rediscuss being on antihypertensive last blood pressure medication during her . Forms: Elevated Blood Pressure Referrals: JING CALDERÓN PA-C [PHYSICIAN [employer] [facility]] - Follow up in 3-5 days [facility] [Outside] - Follow up tomorrow (Follow up with Dr. Rios, call for appointment tomorrow. )
[2018-07-11 16:38] LABS: ABSOLUTE EOSINOPHILS # (AUTO) 0.1 10^3/uL (0.0-0.6); ABSOLUTE LYMPHOCYTES (AUTO) 2.3 10^3/uL (0.5-4.7); ABSOLUTE MONOCYTES (AUTO) 0.9 10^3/uL (0.1-1.4); ABSOLUTE NEUT (AUTO) 9.7 10^3/uL (1.7-8.2); APPEARANCE,URINE CLEAR; BASOPHILS % (AUTO) 0.1 % (0-2); BILIRUBIN,URINE NEGATIVE (NEGATIVE); COLOR,URINE STRAW; EOSINOPHILS % (AUTO) 0.9 % (0-6); GLUCOSE, URINE NEGATIVE (NEGATIVE); HEMATOCRIT 36.6 % (36.0-47.0); HEMOGLOBIN 12.8 g/dL (12.0-15.5); KETONES,URINE NEGATIVE (NEGATIVE); LEUKOCYTE ESTERASE,URINE TRACE (NEGATIVE); LYMPHOCYTES % (AUTO) 17.4 % (13-45); MEAN CORPUSCULAR HGB CONC 34.9 g/dL (32.0-36.0); MEAN CORPUSCULAR VOLUME 86 fl (80-97); MONOCYTES % (AUTO) 7.2 % (3-13); NITRITE,URINE NEGATIVE (NEGATIVE); PLATELET COUNT 418 10^3/uL (150-450); PROTEIN,URINE NEGATIVE (NEGATIVE); RED BLOOD COUNT 4.27 10^6/uL (3.72-5.28); SEGMENTED NEUTROPHILS % (AUTO) 74.4 % (42-78); TOTAL CELLS COUNTED % (AUTO) 100 %; URINE SPECIFIC GRAVITY 1.001; UROBILINOGEN,URINE NEGATIVE mg/dL (<2.0); WHITE BLOOD COUNT 13.1 10^3/uL (4.0-10.5)
[2018-07-11 16:44] LABS: D-DIMER 0.54 ug/mL (0.00-0.50)
[2018-07-11 16:48] LABS: ALANINE AMINOTRANSFERASE 26 U/L (9-52); ALKALINE PHOSPHATASE 113 U/L (38-126); ANION GAP 14 (5-19); ASPARTATE AMINO TRANSFERASE 30 U/L (14-36); BILIRUBIN,DIRECT 0.1 mg/dL (0.0-0.4); BILIRUBIN,TOTAL 0.2 mg/dL (0.2-1.3); BLOOD UREA NITROGEN 7 mg/dL (7-20); CALCIUM 9.5 mg/dL (8.4-10.2); CARBON DIOXIDE 24 mmol/L (22-30); CHLORIDE 102 mmol/L (98-107); CREATINE KINASE 33 U/L (30-135); GLUCOSE 91 mg/dL (75-110); POTASSIUM 3.9 mmol/L (3.6-5.0); SODIUM 139.6 mmol/L (137-145); TOTAL PROTEIN 7.4 g/dL (6.3-8.2); URIC ACID 2.5 mg/dL (2.5-6.2)
--- NOTE | 2018-07-11 16:52 | RADIOLOGY REPORT (SQ) ---
EXAM DESCRIPTION: CHEST 2 VIEWS COMPLETED DATE/TIME: 07/11/2018 4:29 pm REASON FOR STUDY: chest pain COMPARISON: 08/04/2017. EXAM PARAMETERS: NUMBER OF VIEWS: two views TECHNIQUE: Digital Frontal and Lateral radiographic views of the chest acquired. RADIATION DOSE: NA LIMITATIONS: none FINDINGS: LUNGS AND PLEURA: No opacities, masses or pneumothorax. No pleural effusion. MEDIASTINUM AND HILAR STRUCTURES: No masses or contour abnormalities. HEART AND VASCULAR STRUCTURES: Heart normal size. No evidence for failure. BONES: No acute findings. HARDWARE: None in the chest. OTHER: No other significant finding. IMPRESSION: NO ACUTE RADIOGRAPHIC FINDING IN THE CHEST. TECHNICAL DOCUMENTATION: JOB ID: [id number] [employer]- All Rights Reserved Reading location - IP/workstation name: [email or web address]
[2018-07-11 17:03] LABS: CREATINE KINASE MB < 0.22 ng/mL (<4.55); TROPONIN I < 0.012 ng/mL
--- NOTE | 2018-07-11 17:56 | RADIOLOGY REPORT (SQ) ---
EXAM DESCRIPTION: CTA CHEST COMPLETED DATE/TIME: 07/11/2018 5:29 pm REASON FOR STUDY: right chest pain, dyspnea, hx PE, +hcg COMPARISON: None. TECHNIQUE: CT scan of the chest performed using helical scanning technique with dynamic intravenous contrast injection. Images reviewed with lung, soft tissue and bone windows. Reconstructed coronal and sagittal MPR images reviewed. Additional 3 dimensional post-processing performed to develop Maximal Intensity Projection images (MD P). All images stored on PACS. All CT scanners at this facility use dose modulation, iterative reconstruction, and/or weight based d osing when appropriate to reduce radiation dose to as low as reasonably achievable (ALARA). [facility]: Dose Right [facility]: CareDose [facility]: Dose Right [facility]: Teradose 4D [facility]: Club 42cm CONTRAST TYPE AND DOSE: contrast/concentration: Isovue 350.00 mg/ml; Total Contrast Delivered: 66.0 ml; Total Saline Delivered: 110.0 ml RENAL FUNCTION: BUN 7 creatinine 0.54. RADIATION DOSE: CT Rad equipment meets quality standard of care and radiation dose reduction techniq ues were employed. CTDIvol: 9.4 - 12.0 mGy. DLP: 428 mGy-cm. . LIMITATIONS: Study nondiagnostic for pulmonary emboli due to suboptimal timing of the contrast bolus . FINDINGS: LUNGS AND PLEURA: No masses, infiltrates, or pneumothorax. No pleural effusions or pleura l calcifications. AORTA AND GREAT VESSELS: No aneurysm. Contrast bolus not optimized for the aorta. HEART: No pericardial effusion. No significant coronary artery calcifications. PULMONARY ARTERIES: Nondiagnostic for pulmonary emboli. HILAR AND MEDIASTINAL STRUCTURES: No identified masses or abnormal nodes. HARDWARE: None in the chest. UPPER ABDOMEN: No significant findings. Limited exam. THYROID AND OTHER SOFT TISSUES: No masses. No adenopathy. BONES: No acute or significant finding. 3D MIPS: Confirm above findings. OTHER: No other significant finding. IMPRESSION: THE STUDY IS NONDIAGNOSTIC FOR PULMONARY EMBOLI DUE TO SUBOPTIMAL TIMING OF THE CONTRAST BOLUS. THE PATIENT IS CURRENTLY . WILL NEED TO CONSIDER THE RELATIVE RISKS OF REPEAT RADIA TION EXPOSURE VERSUS INABILITY TO DIAGNOSIS POTENTIAL PULMONARY EMBOLI. IF THERE IS STRONG CLINICAL SUSPICION OF PULMONARY EMBOLI, PARTICULARLY GIVEN THE PRIOR HISTORY OF PE, THEN REPEAT STUDY WOULD BE INDICATED. COMMENT: Quality ID # [id number]: Final reports with documentation of one or more dose reduction techniques (e.g., Automated exposure control, adjustment of the mA and/or kV according to patient size, use of iterative reconstruction technique) TECHNICAL DOCUMENTATION: JOB ID: [id number] [employer]- All Rights Reserved Reading location - IP/workstation name: [email or web address]
[2018-07-11] MEDS ORDERED: NORMAL SALINE 1000 ML 1,000 ML IV ONE (18:33)
--- NOTE | 2018-07-11 18:36 | RADIOLOGY REPORT (SQ) ---
EXAM DESCRIPTION: CTA CHEST COMPLETED DATE/TIME: 07/11/2018 6:22 pm REASON FOR STUDY: chest pain, tachycardia, dyspnea, hx PE, +hcg COMPARISON: None. TECHNIQUE: CT scan of the chest performed using helical scanning technique with dynamic intravenous contrast injection. Images reviewed with lung, soft tissue and bone windows. Reconstructed coronal and sagittal MPR images reviewed. Additional 3 dimensional post-processing performed to develop Maximal Intensity Projection images (DE P). All images stored on PACS. All CT scanners at this facility use dose modulation, iterative reconstruction, and/or weight based d osing when appropriate to reduce radiation dose to as low as reasonably achievable (ALARA). [facility]: Dose Right [facility]: CareDose [facility]: Dose Right [facility]: Teradose 4D [facility]: [employer] CONTRAST TYPE AND DOSE: contrast/concentration: Isovue 350.00 mg/ml; Total Contrast Delivered: 51.0 ml; Total Saline Delivered: 80.0 ml Contrast bolus adequate for pulmonary arteries and aorta. RENAL FUNCTION: BUN 7 creatinine 0.54. RADIATION DOSE: CT Rad equipment meets quality standard of care and radiation dose reduction techniq ues were employed. CTDIvol: 10.7 - 11.3 mGy. DLP: 376 mGy-cm. . LIMITATIONS: None. FINDINGS: LUNGS AND PLEURA: No masses, infiltrates, or pneumothorax. No pleural effusions or pleura l calcifications. AORTA AND GREAT VESSELS: No aneurysm. Contrast bolus not optimized for the aorta. HEART: No pericardial effusion. No significant coronary artery calcifications. PULMONARY ARTERIES: No emboli visualized in the main pulmonary arteries or the segmental branches. HILAR AND MEDIASTINAL STRUCTURES: No identified masses or abnormal nodes. HARDWARE: None in the chest. UPPER ABDOMEN: No significant findings. Limited exam. THYROID AND OTHER SOFT TISSUES: No masses. No adenopathy. BONES: No acute or significant finding. 3D MIPS: Confirm above findings. OTHER: No other significant finding. IMPRESSION: NORMAL CTA OF THE CHEST. NO PULMONARY EMBOLI. COMMENT: Quality ID # [id number]: Final reports with documentation of one or more dose reduction techniques (e.g., Automated exposure control, adjustment of the mA and/or kV according to patient size, use of iterative reconstruction technique) TECHNICAL DOCUMENTATION: JOB ID: [id number] [employer]- All Rights Reserved Reading location - IP/workstation name: [email or web address]
[2018-07-11 19:24] VITALS: BP 125/65
--- NOTE | 2018-07-11 22:45 | EKG REPORT ---
SEVERITY:- ABNORMAL ECG - SINUS TACHYCARDIA CONSIDER LEFT VENTRICULAR HYPERTROPHY : Confirmed by: uSnita Hudson MD 11-Jul-2018 22:44:35
== END 2018-07-11 19:22 | disposition home or self-care (01) ==
LOC: ER 15:37
DX: O26.892 Other specified pregnancy related conditions, second trimester (principal); R07.1 Chest pain on breathing; R06.02 Shortness of breath; R79.1 Abnormal coagulation profile; R00.0 Tachycardia, unspecified; O16.2 Unspecified maternal hypertension, second trimester; Z3A.00 Weeks of gestation of pregnancy not specified; Z86.711 Personal history of pulmonary embolism; Z87.59 Personal history of other complications of pregnancy, childbirth and the puerperium; Z88.5 Allergy status to narcotic agent; Z91.040 Latex allergy status; Z87.892 Personal history of anaphylaxis; Z91.013 Allergy to seafood; Z82.49 Family history of ischemic heart disease and other diseases of the circulatory system
CPT/HCPCS: 93005; 99285; 36415; 87086; 82553; 82550; 83615; 84550; 85025; 85384; 80053; 81001; 84484; 85379; 83880; 71046; 71275; 93010; J7030; 96360

== ENCOUNTER 2018-07-14 21:40 | Emergency (ER) | payer OTHER ==
--- NOTE | 2018-07-14 22:26 | ER Document Report ---
ED General - General Chief Complaint: Neck Problem Stated Complaint: NECK PAIN Time Seen by Provider: 07/14/18 22:04 Mode of Arrival: Ambulatory TRAVEL OUTSIDE OF THE [place] IN LAST 30 DAYS: No - HPI Patient complains to provider of: neck and jaw pain Notes: This is a 28-year-old female currently 14 weeks with past medical history of eclampsia, preeclampsia, PE seen in the emergency department 3 days ago for shortness of breath and chest pain with a negative CT angiogram of the chest who presents to the emergency room for mild chest pain, neck and jaw pain. She endorses the chest pain is mild and says the neck and jaw pain is what brought her in, endorses the pain is 2 out of 5, worse when laying down , slightly improved when sitting up. She denies dizziness, lightheadedness, any loss of consciousness, headache, vision changes, shortness of breath, nausea , vomiting, swelling of the legs, any urinary symptoms. She was recently placed on labetalol 100 mg 2 times per day for hypertension. She presented with a blood pressure of 149/101. - Related Data Allergies/Adverse Reactions: morphine [Morphine] Allergy (Severe, Verified 06/24/18 11:41) Difficulty breathing/itch shellfish derived Allergy (Severe, Verified 06/24/18 11:41) Anaphylaxis iodine [Iodine] Allergy (Intermediate, Verified 06/24/18 11:41) RASH latex [Latex] Allergy (Intermediate, Verified 06/24/18 11:41) RASH Past Medical History - General Information source: Patient - Social History Smoking Status: Never Smoker Family History: Reviewed & Not Pertinent, CAD, COPD, CVA, DM, Hyperlipidemia, Hypertension Patient has suicidal ideation: No Patient has homicidal ideation: No - Past Medical History Cardiac Medical History: Reports: Hx Hypertension Denies: Hx Heart Attack Pulmonary Medical History: Reports: Hx Asthma - resolved Denies: Hx Bronchitis, Hx COPD, Hx Pneumonia Neurological Medical History: Reports: Hx Migraine. Denies: Hx Seizures Renal/ Medical History: Reports: Hx Pelvic Inflammatory Disease. Denies: Hx Peritoneal Dialysis Musculoskeletal Medical History: Denies Hx Arthritis, Reports Hx Musculoskeletal Trauma Psychiatric Medical History: Reports: Hx Depression, Hx Post Traumatic Stress Disorder Denies: Hx Bipolar Disorder Traumatic Medical History: Reports: Hx Fractures - Fractured ankle Past Surgical History: Reports: Hx Cholecystectomy, Hx Oral Surgery - wisdom tooth removal 07/2016, Hx Orthopedic Surgery - right ankle - Immunizations Immunizations up to date: Yes Hx Diphtheria, Pertussis, Tetanus Vaccination: Yes Review of Systems - Review of Systems Constitutional: See HPI EENT: See HPI Cardiovascular: See HPI Respiratory: See HPI Gastrointestinal: See HPI Genitourinary: See HPI Female Genitourinary: No symptoms reported Musculoskeletal: No symptoms reported Skin: No symptoms reported Hematologic/Lymphatic: No symptoms reported Neurological/Psychological: No symptoms reported Physical Exam - Vital signs Vitals: Temp Pulse Resp BP Pulse Ox 97.8 F 99 17 149/101 H 99 07/14/18 21:48 07/14/18 21:48 07/14/18 21:48 07/14/18 21:48 07/14/18 21:48 - Notes Notes: Reviewed vital signs and nursing note as charted by RN. CONSTITUTIONAL: Well-appearing, well-nourished; acting appropriately for age HEAD: Normocephalic; atraumatic; No swelling EYES: PERRL; Conjunctivae clear, no drainage; EOMI ENT: External ears without lesions; landmarks clear and well visualized; no rhinorrhea; Pharynx without erythema or lesions, airway patent, mucous membranes pink and moist NECK: Supple, no masses CARD: Regular rate and rhythm; no murmurs, no rubs, no gallops, capillary refill < 2 seconds, symmetric pulses, no extremity edema RESP: Respiratory rate and effort are normal. There is normal chest excursion. No respiratory distress, no retractions, no stridor, no nasal flaring, no accessory muscle use. The lungs are clear to auscultation bilaterally, no wheezing, no rales, no rhonchi. ABD/GI: Normal bowel sounds; non-distended; soft, non-tender, no rebound, no guarding EXT: Normal ROM in all joints; non-tender to palpation; no effusions, no edema SKIN: Normal color for age and race; warm; dry; good turgor; no acute lesions noted NEURO: No facial asymmetry; Moves all extremities equally; Motor and sensory function intact Course - Re-evaluation Re-evalutation: 07/14/18 22:45 Discussed the patient with Dr. Paulson. Reviewed CTA chest abdomen from 1124 and no evidence of aortic dissection. Did not visualize the carotids or vertebral arteries. Patient is complaining of a tearing type pain in her right neck and jaw. Plan to get a CMP, CBC, troponin, EKG. Patient is otherwise very well-appearing in the room and smiling. She does have an appointment at 9: 00 in the morning with her OB. If all labs and EKG are normal this will be reassuring. 07/14/18 23:36 All lab work returned showing no abnormalities all within normal limits. At this point because patient has very close follow-up at 0900 tomorrow morning it is safe and reasonable to discharge her home. Not be unreasonable to consider Doppler studies of the carotids. - Vital Signs Vital signs: Temp Pulse Resp BP Pulse Ox 97.8 F 99 17 149/101 H 99 07/14/18 21:48 07/14/18 21:48 07/14/18 21:48 07/14/18 21:48 07/14/18 21:48 - Laboratory Result Diagrams: 07/14/18 22:46 07/14/18 22:46 Laboratory results interpreted by me: 07/14/18 07/14/18 07/14/18 22:10 22:46 22:46 WBC 13.1 H Hgb 11.7 L Hct 33.6 L Absolute Neutrophils 9.7 H Creatinine 0.49 L Ur Leukocyte Esterase MODERATE H Discharge - Discharge Clinical Impression: Neck pain Qualifiers: Weeks of gestation: 14 weeks Qualified Code(s): Z3A.14 - 14 weeks gestation of Condition: Good Disposition: HOME, SELF-CARE Additional Instructions: You were seen in the emergency department this evening for neck and jaw pain. Because you had a full workup 3 days ago that showed no evidence of a pulmonary we feel it is not prudent to rescan you tonight. Unclear why you are having neck and jaw pain but all of your lab work returned normal. Your blood pressure was elevated this evening in the emergency room. Please discuss with your UNDERWEAR HEMMER tomorrow morning your visit to the emergency department and when you came in on July 11. If you have any severe chest pain shortness of breath, loss of consciousness, altered mental status, please immediately go to the emergency department.
[2018-07-14 22:45] LABS: APPEARANCE,URINE SLIGHTLY-CLOUDY; BILIRUBIN,URINE NEGATIVE (NEGATIVE); COLOR,URINE STRAW; GLUCOSE, URINE NEGATIVE (NEGATIVE); KETONES,URINE NEGATIVE (NEGATIVE); LEUKOCYTE ESTERASE,URINE MODERATE (NEGATIVE); NITRITE,URINE NEGATIVE (NEGATIVE); PROTEIN,URINE NEGATIVE (NEGATIVE); URINE SPECIFIC GRAVITY 1.009; UROBILINOGEN,URINE NEGATIVE mg/dL (<2.0)
[2018-07-14 23:07] LABS: ABSOLUTE EOSINOPHILS # (AUTO) 0.2 10^3/uL (0.0-0.6); ABSOLUTE LYMPHOCYTES (AUTO) 2.3 10^3/uL (0.5-4.7); ABSOLUTE MONOCYTES (AUTO) 0.9 10^3/uL (0.1-1.4); ABSOLUTE NEUT (AUTO) 9.7 10^3/uL (1.7-8.2); BASOPHILS % (AUTO) 0.2 % (0-2); EOSINOPHILS % (AUTO) 1.3 % (0-6); HEMATOCRIT 33.6 % (36.0-47.0); HEMOGLOBIN 11.7 g/dL (12.0-15.5); LYMPHOCYTES % (AUTO) 17.6 % (13-45); MEAN CORPUSCULAR HEMOGLOBIN 29.9 pg (27.0-33.4); MEAN CORPUSCULAR VOLUME 86 fl (80-97); MONOCYTES % (AUTO) 6.9 % (3-13); PLATELET COUNT 387 10^3/uL (150-450); RED BLOOD COUNT 3.93 10^6/uL (3.72-5.28); RED CELL DISTRIBUTION WIDTH 13.3 % (11.5-14.0); TOTAL CELLS COUNTED % (AUTO) 100 %; WHITE BLOOD COUNT 13.1 10^3/uL (4.0-10.5)
[2018-07-14 23:13] LABS: ALANINE AMINOTRANSFERASE 28 U/L (9-52); ALBUMIN 3.6 g/dL (3.5-5.0); ALKALINE PHOSPHATASE 88 U/L (38-126); ANION GAP 13 (5-19); ASPARTATE AMINO TRANSFERASE 20 U/L (14-36); BILIRUBIN,DIRECT 0.1 mg/dL (0.0-0.4); BILIRUBIN,TOTAL 0.2 mg/dL (0.2-1.3); BLOOD UREA NITROGEN 8 mg/dL (7-20); CALCIUM 9.5 mg/dL (8.4-10.2); CARBON DIOXIDE 24 mmol/L (22-30); CHLORIDE 103 mmol/L (98-107); GLUCOSE 97 mg/dL (75-110); POTASSIUM 4.1 mmol/L (3.6-5.0); SODIUM 140.2 mmol/L (137-145); TOTAL PROTEIN 6.7 g/dL (6.3-8.2)
[2018-07-15 00:08] VITALS: BP 128/86
--- NOTE | 2018-07-15 07:40 | EKG REPORT ---
SEVERITY:- ABNORMAL ECG - SINUS RHYTHM NONSPECIFIC ST-T CHANGES INFERIOR LEADS III AND AVF : Confirmed by: Jacobo Rios MD 15-Jul-2018 07:39:55
== END 2018-07-15 00:08 | disposition home or self-care (01) ==
LOC: ER 21:40
DX: O99.89 Other specified diseases and conditions complicating pregnancy, childbirth and the puerperium (principal); M54.2 Cervicalgia; O26.892 Other specified pregnancy related conditions, second trimester; R68.84 Jaw pain; R07.9 Chest pain, unspecified; O16.2 Unspecified maternal hypertension, second trimester; Z3A.14 14 weeks gestation of pregnancy; Z88.5 Allergy status to narcotic agent; Z91.040 Latex allergy status; Z87.892 Personal history of anaphylaxis; Z91.013 Allergy to seafood
CPT/HCPCS: 36415; 80053; 81001; 84484; 85025; 93005; 93010; 99284

== ENCOUNTER 2018-07-24 19:23 | Emergency (ER) | payer OTHER ==
[2018-07-24 19:36] VITALS: BP 145/93
[2018-07-24] MEDS ORDERED: METOCLOPRAMIDE HCL 10 MG TABLET PO ONE (20:08)
--- NOTE | 2018-07-24 20:14 | ER Document Report ---
ED General - General Chief Complaint: Headache Stated Complaint: NECK PAIN Time Seen by Provider: 07/24/18 19:56 Notes: Patient is a 28-year-old female currently 16 weeks who presents with complaints of a diffuse, global headache with associated right-sided neck pain. The patient reports that her symptoms have been ongoing intermittently for the past 6 months and are not new or different today. Of note this is the patient's 44th visit to the emergency department in 2018. Patient states that the pain is a dull, throbbing, intermittent pain. Nothing seems to improve or worsen the pain. She denies any focal weakness, numbness, fever or constitutional symptoms. She does not have a primary care physician. She has tried Tylenol with no relief. She denies any abdominal pain, vaginal bleeding or vaginal discharge. No dysuria. She denies any chest pain, pleuritic pain or shortness of breath. TRAVEL OUTSIDE OF THE [place] IN LAST 30 DAYS: No - Related Data Allergies/Adverse Reactions: morphine [Morphine] Allergy (Severe, Verified 06/24/18 11:41) Difficulty breathing/itch shellfish derived Allergy (Severe, Verified 06/24/18 11:41) Anaphylaxis iodine [Iodine] Allergy (Intermediate, Verified 06/24/18 11:41) RASH latex [Latex] Allergy (Intermediate, Verified 06/24/18 11:41) RASH Past Medical History - General Information source: Patient - Social History Smoking Status: Never Smoker Frequency of alcohol use: None Drug Abuse: None Lives with: Spouse/Significant other Family History: Reviewed & Not Pertinent, CAD, COPD, CVA, DM, Hyperlipidemia, Hypertension - Past Medical History Cardiac Medical History: Reports: Hx Hypertension Denies: Hx Heart Attack Pulmonary Medical History: Reports: Hx Asthma - resolved Denies: Hx Bronchitis, Hx COPD, Hx Pneumonia Neurological Medical History: Reports: Hx Migraine. Denies: Hx Seizures Renal/ Medical History: Reports: Hx Pelvic Inflammatory Disease. Denies: Hx Peritoneal Dialysis Musculoskeletal Medical History: Denies Hx Arthritis, Reports Hx Musculoskeletal Trauma Psychiatric Medical History: Reports: Hx Depression, Hx Post Traumatic Stress Disorder Denies: Hx Bipolar Disorder Traumatic Medical History: Reports: Hx Fractures - Fractured ankle Past Surgical History: Reports: Hx Cholecystectomy, Hx Oral Surgery - wisdom tooth removal 07/2016, Hx Orthopedic Surgery - right ankle - Immunizations Immunizations up to date: Yes Hx Diphtheria, Pertussis, Tetanus Vaccination: Yes Review of Systems - Review of Systems Notes: Constitutional: Negative for fever. HENT: Negative for sore throat. Eyes: Negative for visual changes. Cardiovascular: Negative for chest pain. Respiratory: Negative for shortness of breath. Gastrointestinal: Negative for abdominal pain, vomiting or diarrhea. Genitourinary: Negative for dysuria. Musculoskeletal: Negative for back pain. Skin: Negative for rash. Neurological: Positive for headache 10 point ROS negative except as marked above and in HPI. Physical Exam - Vital signs Vitals: Temp Pulse Resp BP Pulse Ox 99.0 F 109 H 20 145/93 H 100 07/24/18 19:27 07/24/18 19:27 07/24/18 19:27 07/24/18 19:27 07/24/18 19:27 Interpretation: Tachycardic - Resolved at the time of my assessment with a heart rate of 92 Notes: PHYSICAL EXAMINATION: GENERAL: Resting comfortably in bed, using her cell phone, drinking soda HEAD: Atraumatic, normocephalic. EYES: Pupils equal round and reactive to light, extraocular movements intact, sclera anicteric, conjunctiva are normal. ENT: nares patent, oropharynx clear without exudates. Moderately dry mucous membranes. NECK: Normal range of motion, supple without lymphadenopathy LUNGS: Breath sounds clear to auscultation bilaterally and equal. No wheezes rales or rhonchi. HEART: Regular rate and rhythm without murmurs ABDOMEN: Soft, nontender, normoactive bowel sounds. No guarding, no rebound. No masses appreciated. EXTREMITIES: Normal range of motion, no pitting or edema. No cyanosis. NEUROLOGICAL: Face symmetric. Tongue protrudes midline. Extraocular motions intact. Pupils are 2 mm and equally reactive. Normal speech, normal gait. 5 out of 5 strength in both the distal and proximal upper and lower extremities bilaterally. Sensation is grossly intact throughout. Finger to nose testing normal. Pronator drift normal. PSYCH: Moderately anxious SKIN: Warm, Dry, normal turgor, no rashes or lesions noted. Course - Re-evaluation Re-evalutation: 07/24/18 20:10 Presentation of a headache that appears to be most consistent with tension versus migrainous type headache. Headache was not maximal in onset, patient has no focal neurologic deficits, no nuchal rigidity, vital signs within normal limits, no papilledema, and patient is overall well in appearance. Based on clinical history and examination I do not suspect an acute subarachnoid hemorrhage, dural venous sinus thrombosis, acute meningitis, or intercranial mass. Given my low clinical suspicion for any acute life-threatening etiology, I do not feel advanced neuro imaging or laboratory testing is indicated at this time. Patient has had relief after receiving metoclopramide. Did also discuss with the patient that I am concerned about the frequency of her visits to the emergency department. I emphasized that she is always welcome the emergency department and we are happy to see her at any time. I have expressed concern about the quantity of diagnostic imaging studies that have been undertaken over the last 15 months including a total of 5 CTs, 8 ultrasounds and 3 MRIs. Of note these studies have all uniformly been without any concerning findings. I have emphasized to the patient that although we are always happy to see her, I would encourage her to have a primary care physician whom she can follow with for her chronic concerns such as her headaches. The patient is agreed in agreement, states that she does have access to medical insurance but has not made an effort to get a primary care physician. At this time will discharge with return precautions and follow-up recommendations. Verbal discharge instructions given a the bedside and opportunity for questions given. Medication warnings reviewed. Patient is in agreement with this plan and has verbalized understanding of return precautions and the need for primary care follow-up in the next 24-72 hours. - Vital Signs Vital signs: Temp Pulse Resp BP Pulse Ox 99.0 F 109 H 20 145/93 H 100 07/24/18 19:27 07/24/18 19:27 07/24/18 19:27 07/24/18 19:27 07/24/18 19:27 Discharge - Discharge Clinical Impression: Recurrent headache, Second trimester Condition: Good Disposition: HOME, SELF-CARE Additional Instructions: You have been seen in the Emergency Department (ED) for a headache. Please use Tylenol (acetaminophen) or reglan as needed for symptom. As we have discussed, please follow up with your primary care doctor as soon as possible regarding today's ED visit and your headache symptoms. Call your doctor or return to the ED if you have a worsening headache, sudden and severe headache, confusion, slurred speech, facial droop, weakness or numbness in any arm or leg, extreme fatigue, or other symptoms that concern you. Prescriptions: Metoclopramide HCl [Reglan 10 mg Tablet] 1 - 2 tab PO ASDIR PRN #25 tablet PRN Reason:
== END 2018-07-24 20:22 | disposition home or self-care (01) ==
LOC: ER 19:23
DX: O26.892 Other specified pregnancy related conditions, second trimester (principal); R51 Headache; O99.89 Other specified diseases and conditions complicating pregnancy, childbirth and the puerperium; M54.2 Cervicalgia; O16.2 Unspecified maternal hypertension, second trimester; Z3A.16 16 weeks gestation of pregnancy; Z88.5 Allergy status to narcotic agent; Z91.040 Latex allergy status; Z87.892 Personal history of anaphylaxis; Z91.013 Allergy to seafood
CPT/HCPCS: 99283

== ENCOUNTER 2018-09-04 10:20 | Outpatient (CLI) | payer OTHER ==
[2018-09-04] MEDS ORDERED: HYDROXYZINE PAMOATE 50 MG CAPSULE PO ONE (10:47)
[2018-09-04 11:20] LABS: APPEARANCE,URINE CLOUDY; BILIRUBIN,URINE NEGATIVE (NEGATIVE); COLOR,URINE YELLOW; GLUCOSE, URINE NEGATIVE (NEGATIVE); KETONES,URINE NEGATIVE (NEGATIVE); LEUKOCYTE ESTERASE,URINE LARGE (NEGATIVE); NITRITE,URINE NEGATIVE (NEGATIVE); PROTEIN,URINE NEGATIVE (NEGATIVE); URINE SPECIFIC GRAVITY 1.017; UROBILINOGEN,URINE NEGATIVE mg/dL (<2.0)
[2018-09-04 11:23] LABS: URINE AMPHETAMINES SCREEN NEGATIVE; URINE BARBITURATES SCREEN NEGATIVE; URINE BENZODIAZEPINES SCREEN NEGATIVE; URINE COCAINE SCREEN NEGATIVE; URINE MARIJUANA (THC) SCREEN NEGATIVE; URINE METHADONE SCREEN NEGATIVE; URINE PHENCYCLIDINE SCREEN NEGATIVE
[2018-09-04] MEDS ORDERED: FLUCONAZOLE 100 MG TABLET PO SCH (12:30)
== END 2018-09-04 11:52 | disposition home or self-care (01) ==
LOC: LC 10:20
PROVIDERS: ATTEND Obstetrics & Gynecology
PROC: 4A1HXCZ Monitoring of Products of Conception, Cardiac Rate, External Approach (ICD-10-PCS; principal; 2018-09-04)
DX: O26.892 Other specified pregnancy related conditions, second trimester (principal); M54.9 Dorsalgia, unspecified; M79.606 Pain in leg, unspecified; Z3A.22 22 weeks gestation of pregnancy
CPT/HCPCS: 80307; 81001

== ENCOUNTER 2018-10-05 16:25 | Outpatient (CLI) | payer OTHER ==
[2018-10-05] MEDS ORDERED: RINGERS SOLUTION,LACTATED 1,000 ML IV ONE (17:21)
[2018-10-05 17:40] LABS: ABSOLUTE EOSINOPHILS # (AUTO) 0.2 10^3/uL (0.0-0.6); ABSOLUTE LYMPHOCYTES (AUTO) 2.1 10^3/uL (0.5-4.7); ABSOLUTE MONOCYTES (AUTO) 1.1 10^3/uL (0.1-1.4); ABSOLUTE NEUT (AUTO) 11.5 10^3/uL (1.7-8.2); BASOPHILS % (AUTO) 0.1 % (0-2); EOSINOPHILS % (AUTO) 1.6 % (0-6); HEMOGLOBIN 11.3 g/dL (12.0-15.5); MEAN CORPUSCULAR HEMOGLOBIN 30.4 pg (27.0-33.4); MEAN CORPUSCULAR HGB CONC 34.3 g/dL (32.0-36.0); MEAN CORPUSCULAR VOLUME 88 fl (80-97); MONOCYTES % (AUTO) 7.4 % (3-13); PLATELET COUNT 407 10^3/uL (150-450); RED BLOOD COUNT 3.73 10^6/uL (3.72-5.28); RED CELL DISTRIBUTION WIDTH 13.9 % (11.5-14.0); SEGMENTED NEUTROPHILS % (AUTO) 76.9 % (42-78); TOTAL CELLS COUNTED % (AUTO) 100 %
[2018-10-05] MEDS ORDERED: ONDANSETRON HCL INJ/PF 4 MG/2 ML SDV IV ONE (18:00)
[2018-10-05 18:05] LABS: LIPASE 51.3 U/L (23-300)
[2018-10-05 18:07] LABS: ALANINE AMINOTRANSFERASE 26 U/L (9-52); ALBUMIN 3.7 g/dL (3.5-5.0); ALKALINE PHOSPHATASE 136 U/L (38-126); ANION GAP 9 (5-19); ASPARTATE AMINO TRANSFERASE 18 U/L (14-36); BILIRUBIN,DIRECT 0.1 mg/dL (0.0-0.4); BILIRUBIN,TOTAL 0.2 mg/dL (0.2-1.3); BLOOD UREA NITROGEN 4 mg/dL (7-20); CALCIUM 8.8 mg/dL (8.4-10.2); CARBON DIOXIDE 25 mmol/L (22-30); CHLORIDE 104 mmol/L (98-107); GLUCOSE 78 mg/dL (75-110); POTASSIUM 4.1 mmol/L (3.6-5.0); SODIUM 138.4 mmol/L (137-145); TOTAL PROTEIN 6.5 g/dL (6.3-8.2); URIC ACID 2.5 mg/dL (2.5-6.2)
[2018-10-05] MEDS ORDERED: ONDANSETRON HCL INJ/PF 4 MG/2 ML SDV ONE (18:30)
--- NOTE | 2018-10-05 18:50 | RADIOLOGY REPORT (SQ) ---
EXAM DESCRIPTION: U/S ABDOMEN LIMITED W/O DOP COMPLETED DATE/TIME: 10/05/2018 6:23 pm REASON FOR STUDY: RUQ pain COMPARISON: 07/11/2017 TECHNIQUE: Dynamic and static grayscale images acquired of the abdomen and recorded on PACS. Additio nal selected color Doppler and spectral images recorded. LIMITATIONS: None. FINDINGS: PANCREAS: The head and body of the pancreas appear normal. The tail was obscured by gas. LIVER: No masses. Echotexture normal. LIVER VASCULATURE: Normal directional flow of the main portal vein and hepatic veins. GALLBLADDER: Surgically absent. ULTRASOUND-DETECTED BILLINGS'S SIGN: Not applicable. INTRAHEPATIC DUCTS AND COMMON DUCT: CBD and intrahepatic ducts normal caliber. No filling defects. INFERIOR VENA CAVA: Not imaged. AORTA: No aneurysm. RIGHT KIDNEY: Normal size, 11.8 cm. Normal echogenicity. No solid or suspicious masses. No hydroneph rosis. No calcifications. PERITONEAL AND RIGHT PLEURAL SPACE: No ascites or effusions. OTHER: No other significant findings. IMPRESSION: NORMAL RIGHT UPPER QUADRANT ULTRASOUND. TECHNICAL DOCUMENTATION: JOB ID: [id number] [employer]- All Rights Reserved Reading location - IP/workstation name: [email or web address]
[2018-10-05 19:40] LABS: APPEARANCE,URINE CLEAR; BILIRUBIN,URINE NEGATIVE (NEGATIVE); COLOR,URINE STRAW; GLUCOSE, URINE NEGATIVE (NEGATIVE); KETONES,URINE NEGATIVE (NEGATIVE); LEUKOCYTE ESTERASE,URINE NEGATIVE (NEGATIVE); NITRITE,URINE NEGATIVE (NEGATIVE); PROTEIN,URINE NEGATIVE (NEGATIVE); URINE SPECIFIC GRAVITY 1.004; UROBILINOGEN,URINE NEGATIVE mg/dL (<2.0)
--- NOTE | 2018-10-05 19:46 | L&D Progress Notes ---
PROGRESS NOTES Datetime Report Generated by CPN: 10/05/2018 19:45 PROGRESS NOTE Impression Other: RUQ tenderness Procedures- Other: monitor Plan Other: PIH work up Vital Signs : Reviewed; Within Normal Limits Comment: PIH work up negative. Abdominal US negatived; cholecystectomy in past. No contractions. Pt states that she is reasdy to go home. FETUS A FHR - Baseline: 130s Monitoring: External US Accelerations: 10X10 Decelerations: None : 26.6 SIGNATURE SIGNATURE: [id number] Signature: with User ID: [email or web address]
[2018-10-05 19:57] LABS: URINE AMPHETAMINES SCREEN NEGATIVE; URINE BARBITURATES SCREEN NEGATIVE; URINE BENZODIAZEPINES SCREEN NEGATIVE; URINE COCAINE SCREEN NEGATIVE; URINE MARIJUANA (THC) SCREEN NEGATIVE; URINE METHADONE SCREEN NEGATIVE; URINE PHENCYCLIDINE SCREEN NEGATIVE
== END 2018-10-05 20:03 | disposition home or self-care (01) ==
LOC: LC 16:25
PROVIDERS: ATTEND Obstetrics & Gynecology
PROC: 4A1HXCZ Monitoring of Products of Conception, Cardiac Rate, External Approach (ICD-10-PCS; principal; 2018-10-05)
DX: O99.282 Endocrine, nutritional and metabolic diseases complicating pregnancy, second trimester (principal); E86.0 Dehydration; O26.892 Other specified pregnancy related conditions, second trimester; R10.13 Epigastric pain; R10.811 Right upper quadrant abdominal tenderness; Z3A.26 26 weeks gestation of pregnancy
CPT/HCPCS: 59899; 86900; 86901; 36415; 86850; 82150; 83615; 83690; 84550; 85025; 80053; 81001; 80307; 76705; J2405

== ENCOUNTER 2018-10-30 19:07 | Emergency (ER) | payer OTHER ==
--- NOTE | 2018-10-30 19:24 | ER Document Report ---
ED Medical Screen (RME) - General Chief Complaint: Breathing Difficulty Stated Complaint: FLU LIKE SYMPTOMS Time Seen by Provider: 10/30/18 19:17 Notes: RAPID MEDICAL EVALUATION DISCLOSURE I have seen this patient as part of a Rapid Medical Evaluation and, if applicable, placed any initially appropriate orders. The patient will be seen and fully evaluated, including a full history and physical exam, by a provider (in Main ED or Fast Track) when a room becomes available. 28-year-old female here with complaints of cough congestion runny nose sore throat fevers chills ongoing for the past 1 week. She is here today because over the past few days she has started to spike fevers. She was diagnosed with influenza A but states that the cough and the associated chest pain that is worse with coughing has worsened. The cough is productive yellow sputum and this is what she is worried the most about. She is currently taking Tamiflu. EXAM CTAB RRR Gravid abdomen TRAVEL OUTSIDE OF THE [place] IN LAST 30 DAYS: No - Related Data Allergies/Adverse Reactions: morphine [Morphine] Allergy (Severe, Verified 10/30/18 19:08) Difficulty breathing/itch shellfish derived Allergy (Severe, Verified 10/30/18 19:08) Anaphylaxis iodine [Iodine] Allergy (Intermediate, Verified 10/30/18 19:08) RASH latex [Latex] Allergy (Intermediate, Verified 10/30/18 19:08) RASH diphenhydramine [From Benadryl] Allergy (Verified 10/30/18 19:08) Past Medical History - Social History Family history: Reviewed & Not Pertinent, Hypertension, Other - copd - Past Medical History Cardiac Medical History: Reports: Hx Hypertension Denies: Hx Heart Attack Pulmonary Medical History: Reports: Hx Asthma - resolved Denies: Hx Bronchitis, Hx COPD, Hx Pneumonia Neurological Medical History: Reports: Hx Migraine. Denies: Hx Seizures Renal/ Medical History: Reports: Hx Pelvic Inflammatory Disease. Denies: Hx Peritoneal Dialysis Musculoskeltal Medical History: Denies Hx Arthritis, Reports Hx Musculoskeletal Trauma Psychiatric Medical History: Reports: Hx Depression, Hx Post Traumatic Stress Disorder Denies: Hx Bipolar Disorder Traumatic Medical History: Reports: Hx Fractures - Fractured ankle Past Surgical History: Reports: Hx Cholecystectomy, Hx Oral Surgery - wisdom tooth removal 07/2016, Hx Orthopedic Surgery - right ankle - Immunizations Immunizations up to date: Yes Hx Diphtheria, Pertussis, Tetanus Vaccination: Yes Physical Exam - Vital signs Vitals: Temp Pulse Resp BP Pulse Ox 98.6 F 75 20 149/92 H 100 10/30/18 19:09 10/30/18 19:09 10/30/18 19:09 10/30/18 19:09 10/30/18 19:09 Course - Vital Signs Vital signs: Temp Pulse Resp BP Pulse Ox 98.6 F 75 20 149/92 H 100 10/30/18 19:09 10/30/18 19:09 10/30/18 19:09 10/30/18 19:09 10/30/18 19:09
--- NOTE | 2018-10-30 20:39 | RADIOLOGY REPORT (SQ) ---
EXAM DESCRIPTION: XR CHEST 2 VIEWS COMPLETED DATE/TME: 10/30/2018 19:22 CLINICAL HISTORY: 28 years, Female, sob, fever; pneumonia? Comparison: None FINDINGS: No focal lung consolidation. No pleural effusion. No pneumothorax. Cardiac and mediastinal silhouette is unremarkable. No acute osseous abnormality. Soft tissues are unremarkable. IMPRESSION: No acute findings. No focal lung consolidation.
[2018-10-30] MEDS ORDERED: IPRATROPIUM/ALBUTEROL 0.5-2.5 MG/3 ML AMPUL NEB ONE (20:57)
[2018-10-30 21:31] VITALS: BP 141/88
--- NOTE | 2018-10-30 22:13 | ER Document Report ---
ED General - General Chief Complaint: Breathing Difficulty Stated Complaint: FLU LIKE SYMPTOMS Time Seen by Provider: 10/30/18 19:17 Mode of Arrival: Ambulatory Information source: Patient Notes: Patient is a 28-year-old female who presents to the emergency department with increased cough after being diagnosed with the flu on 10/28/18. Patient does report that she is taking Tamiflu, states that this is caused her to have severe diarrhea. Patient denies any nausea or vomiting. Reports that she is currently . Denies any abdominal pain/cramping, vaginal bleeding or discharge. TRAVEL OUTSIDE OF THE [place] IN LAST 30 DAYS: No - Related Data Allergies/Adverse Reactions: morphine [Morphine] Allergy (Severe, Verified 10/30/18 19:08) Difficulty breathing/itch shellfish derived Allergy (Severe, Verified 10/30/18 19:08) Anaphylaxis iodine [Iodine] Allergy (Intermediate, Verified 10/30/18 19:08) RASH latex [Latex] Allergy (Intermediate, Verified 10/30/18 19:08) RASH diphenhydramine [From Benadryl] Allergy (Verified 10/30/18 19:08) Past Medical History - General Information source: Patient - Social History Smoking Status: Former Smoker Family History: Reviewed & Not Pertinent, CAD, COPD, CVA, DM, Hyperlipidemia, Hypertension Patient has suicidal ideation: No Patient has homicidal ideation: No - Past Medical History Cardiac Medical History: Reports: Hx Hypertension Denies: Hx Heart Attack Pulmonary Medical History: Reports: Hx Asthma - resolved Denies: Hx Bronchitis, Hx COPD, Hx Pneumonia Neurological Medical History: Reports: Hx Migraine. Denies: Hx Seizures Renal/ Medical History: Reports: Hx Pelvic Inflammatory Disease. Denies: Hx Peritoneal Dialysis Musculoskeletal Medical History: Denies Hx Arthritis, Reports Hx Musculoskeletal Trauma Psychiatric Medical History: Reports: Hx Depression, Hx Post Traumatic Stress Disorder Denies: Hx Bipolar Disorder Traumatic Medical History: Reports: Hx Fractures - Fractured ankle Past Surgical History: Reports: Hx Cholecystectomy, Hx Oral Surgery - wisdom tooth removal 07/2016, Hx Orthopedic Surgery - right ankle - Immunizations Immunizations up to date: Yes Hx Diphtheria, Pertussis, Tetanus Vaccination: Yes Review of Systems - Review of Systems Constitutional: denies: Fever EENT: Nose congestion, Sinus pressure Cardiovascular: Chest pain - With cough Respiratory: Cough Gastrointestinal: Diarrhea Genitourinary: No symptoms reported Female Genitourinary: No symptoms reported Musculoskeletal: No symptoms reported Skin: No symptoms reported Hematologic/Lymphatic: No symptoms reported Neurological/Psychological: No symptoms reported Physical Exam - Vital signs Vitals: Temp Pulse Resp BP Pulse Ox 98.6 F 75 20 149/92 H 100 10/30/18 19:09 10/30/18 19:09 10/30/18 19:09 10/30/18 19:09 10/30/18 19:09 - Notes Notes: PHYSICAL EXAMINATION: GENERAL: Well-appearing, well-nourished and in no acute distress. HEAD: Atraumatic, normocephalic. EYES: Pupils equal round and reactive to light, extraocular movements intact, conjunctiva are normal. ENT: Nares patent, oropharynx clear without exudates. Moist mucous membranes. NECK: Normal range of motion, supple without lymphadenopathy LUNGS: Breath sounds clear to auscultation bilaterally and equal. Mild expiratory wheezes noted bilaterally. HEART: Regular rate and rhythm without murmurs ABDOMEN: Soft, nontender, gravid abdomen. No guarding, no rebound. No masses appreciated. Musculoskeletal: Normal range of motion, no pitting or edema. No cyanosis. NEUROLOGICAL: Cranial nerves grossly intact. Normal speech, normal gait. Normal sensory, motor exams PSYCH: Normal mood, normal affect. SKIN: Warm, Dry, normal turgor, no rashes or lesions noted. Course - Re-evaluation Re-evalutation: Chest x-ray that was read by triage provider is negative for any acute findings to include infiltrates or pneumothorax. Patient was given breathing treatment here in the emergency department which she reports made her symptoms improve. Patient does report a history of pulmonary embolism but denies any shortness of breath or chest pains. Patient has not had any recent travel. She has no tachycardia or tachypnea noted. Her pulse ox is within normal limits. At the time of reevaluation patient stating that she is ready to go home, states that she has a follow-up appointment with her [facility] in the morning. Okay for discharge home so long as her vital signs are stable. - Vital Signs Vital signs: Temp Pulse Resp BP Pulse Ox 98.5 F 67 20 141/88 H 99 10/30/18 21:30 10/30/18 21:30 10/30/18 21:30 10/30/18 21:30 10/30/18 21:30 Discharge - Discharge Clinical Impression: Influenza A, Cough, Shortness of breath Condition: Stable Disposition: HOME, SELF-CARE Additional Instructions: Please keep the follow-up appointment you have scheduled with your [facility] [facility]. Increase your fluid intake. Make sure you are taking acetaminophen 650 mg every 4 hours for aches and pains. Continue to take all of the medications as prescribed. Please discuss with your [facility] [facility] whether they want you to continue taking the Tamiflu considering it has given you diarrhea.
== END 2018-10-30 22:15 | disposition home or self-care (01) ==
LOC: ER 19:07
DX: O99.519 Diseases of the respiratory system complicating pregnancy, unspecified trimester (principal); J10.1 Influenza due to other identified influenza virus with other respiratory manifestations; O26.899 Other specified pregnancy related conditions, unspecified trimester; R05 Cough; R06.02 Shortness of breath; R09.81 Nasal congestion; R06.2 Wheezing; R07.9 Chest pain, unspecified; R19.7 Diarrhea, unspecified; O16.9 Unspecified maternal hypertension, unspecified trimester; Z3A.00 Weeks of gestation of pregnancy not specified; Z88.5 Allergy status to narcotic agent; Z91.040 Latex allergy status; Z88.8 Allergy status to other drugs, medicaments and biological substances; Z87.892 Personal history of anaphylaxis; Z91.013 Allergy to seafood; Z87.891 Personal history of nicotine dependence; Z86.711 Personal history of pulmonary embolism
CPT/HCPCS: 94640; 99283; 71046; J7620

== ENCOUNTER 2018-11-01 20:23 | Emergency (ER) | payer OTHER ==
[2018-11-01 21:08] VITALS: BP 146/101
[2018-11-01] MEDS ORDERED: METOCLOPRAMIDE HCL 10 MG TABLET PO ONE (22:46)
--- NOTE | 2018-11-01 22:49 | ER Document Report ---
ED Medical Screen (RME) - General Chief Complaint: Abdominal/ epigastric pn Stated Complaint: UPPER STOMACH/CHEST PAIN Time Seen by Provider: 11/01/18 22:46 Notes: 28-year-old female, 30 weeks gestation, chief complaint of pain in her upper abd omen which is intermittently sharp with nausea. Denies vomiting or fever. Denies lower abdominal pain or cramping, denies vaginal bleeding, still feeling baby move normally. She also states her blood pressure has been borderline, she is currently on labetalol, follows with [facility]. Denies lower extremity swelling or headache. Still has a mild cough from resolving viral illness. TRAVEL OUTSIDE OF THE [place] IN LAST 30 DAYS: No - Related Data Allergies/Adverse Reactions: morphine [Morphine] Allergy (Severe, Verified 10/30/18 19:08) Difficulty breathing/itch shellfish derived Allergy (Severe, Verified 10/30/18 19:08) Anaphylaxis iodine [Iodine] Allergy (Intermediate, Verified 10/30/18 19:08) RASH latex [Latex] Allergy (Intermediate, Verified 10/30/18 19:08) RASH diphenhydramine [From Benadryl] Allergy (Verified 10/30/18 19:08) Past Medical History - Social History Family history: Reviewed & Not Pertinent, Hypertension, Other - copd - Past Medical History Cardiac Medical History: Reports: Hx Hypertension Denies: Hx Heart Attack Pulmonary Medical History: Reports: Hx Asthma - resolved Denies: Hx Bronchitis, Hx COPD, Hx Pneumonia Neurological Medical History: Reports: Hx Migraine. Denies: Hx Seizures Renal/ Medical History: Reports: Hx Pelvic Inflammatory Disease. Denies: Hx Peritoneal Dialysis Musculoskeltal Medical History: Denies Hx Arthritis, Reports Hx Musculoskeletal Trauma Psychiatric Medical History: Reports: Hx Depression, Hx Post Traumatic Stress Disorder Denies: Hx Bipolar Disorder Traumatic Medical History: Reports: Hx Fractures - Fractured ankle Past Surgical History: Reports: Hx Cholecystectomy, Hx Oral Surgery - wisdom tooth removal 07/2016, Hx Orthopedic Surgery - right ankle - Immunizations Immunizations up to date: Yes Hx Diphtheria, Pertussis, Tetanus Vaccination: Yes Physical Exam - Vital signs Vitals: Temp Pulse Resp BP Pulse Ox 98.5 F 74 20 146/101 H 100 11/01/18 21:06 11/01/18 21:06 11/01/18 21:06 11/01/18 21:06 11/01/18 21:06 - General General appearance: Appears well In distress: None - Abdominal Tenderness: Tender - Pain across the upper abdomen on exam, lower abdomen is benign, gravid abdomen - Extremities General lower extremity: No: Edema Course - Re-evaluation Re-evalutation: I have greeted and performed a rapid initial assessment of this patient. A comprehensive ED assessment and evaluation of the patient, analysis of test results and completion of the medical decision making process will be conducted by additional ED providers. - Vital Signs Vital signs: Temp Pulse Resp BP Pulse Ox 98.5 F 74 20 146/101 H 100 11/01/18 21:06 11/01/18 21:06 11/01/18 21:06 11/01/18 21:06 11/01/18 21:06
[2018-11-01 23:50] LABS: ABSOLUTE EOSINOPHILS # (AUTO) 0.3 10^3/uL (0.0-0.6); ABSOLUTE LYMPHOCYTES (AUTO) 2.4 10^3/uL (0.5-4.7); ABSOLUTE MONOCYTES (AUTO) 0.9 10^3/uL (0.1-1.4); ABSOLUTE NEUT (AUTO) 11.3 10^3/uL (1.7-8.2); BASOPHILS % (AUTO) 0.3 % (0-2); HEMATOCRIT 32.7 % (36.0-47.0); HEMOGLOBIN 11.5 g/dL (12.0-15.5); LYMPHOCYTES % (AUTO) 15.9 % (13-45); MEAN CORPUSCULAR HEMOGLOBIN 30.3 pg (27.0-33.4); MEAN CORPUSCULAR HGB CONC 35.2 g/dL (32.0-36.0); MEAN CORPUSCULAR VOLUME 86 fl (80-97); MONOCYTES % (AUTO) 6.1 % (3-13); PLATELET COUNT 376 10^3/uL (150-450); RED CELL DISTRIBUTION WIDTH 13.4 % (11.5-14.0); SEGMENTED NEUTROPHILS % (AUTO) 75.7 % (42-78); TOTAL CELLS COUNTED % (AUTO) 100 %; WHITE BLOOD COUNT 14.9 10^3/uL (4.0-10.5)
[2018-11-01 23:56] LABS: APPEARANCE,URINE CLEAR; BILIRUBIN,URINE NEGATIVE (NEGATIVE); COLOR,URINE YELLOW; GLUCOSE, URINE NEGATIVE (NEGATIVE); KETONES,URINE NEGATIVE (NEGATIVE); LEUKOCYTE ESTERASE,URINE NEGATIVE (NEGATIVE); NITRITE,URINE NEGATIVE (NEGATIVE); PROTEIN,URINE NEGATIVE (NEGATIVE); UROBILINOGEN,URINE NEGATIVE mg/dL (<2.0)
[2018-11-02 00:05] LABS: ALANINE AMINOTRANSFERASE 39 U/L (9-52); ALBUMIN 3.5 g/dL (3.5-5.0); ALKALINE PHOSPHATASE 141 U/L (38-126); ANION GAP 9 (5-19); ASPARTATE AMINO TRANSFERASE 27 U/L (14-36); BILIRUBIN,DIRECT 0.1 mg/dL (0.0-0.4); BILIRUBIN,TOTAL 0.3 mg/dL (0.2-1.3); BLOOD UREA NITROGEN 3 mg/dL (7-20); CALCIUM 8.6 mg/dL (8.4-10.2); CARBON DIOXIDE 25 mmol/L (22-30); CHLORIDE 103 mmol/L (98-107); GLUCOSE 98 mg/dL (75-110); LIPASE 51.5 U/L (23-300); SODIUM 137.2 mmol/L (137-145); TOTAL PROTEIN 6.5 g/dL (6.3-8.2)
--- NOTE | 2018-11-02 00:07 | EKG REPORT ---
SEVERITY:- ABNORMAL ECG - SINUS ARRHYTHMIA, RATE 68-80 VENTRICULAR PREMATURE COMPLEX CONSIDER LEFT VENTRICULAR HYPERTROPHY : Confirmed by: Isabell Rojas 02-Nov-2018 00:06:52
== END 2018-11-02 00:20 | disposition left against medical advice (07) ==
LOC: ER 20:23
DX: O26.893 Other specified pregnancy related conditions, third trimester (principal); R10.9 Unspecified abdominal pain; R10.13 Epigastric pain; R07.9 Chest pain, unspecified; R05 Cough; O16.3 Unspecified maternal hypertension, third trimester; O99.513 Diseases of the respiratory system complicating pregnancy, third trimester; Z3A.30 30 weeks gestation of pregnancy
CPT/HCPCS: 36415; 80053; 81001; 83690; 85025; 93005; 93010; 99281

== ENCOUNTER 2018-11-03 20:33 | Outpatient (CLI) | payer OTHER ==
[2018-11-03 21:24] LABS: APPEARANCE,URINE CLOUDY; BILIRUBIN,URINE NEGATIVE (NEGATIVE); COLOR,URINE YELLOW; GLUCOSE, URINE NEGATIVE (NEGATIVE); KETONES,URINE NEGATIVE (NEGATIVE); LEUKOCYTE ESTERASE,URINE SMALL (NEGATIVE); NITRITE,URINE NEGATIVE (NEGATIVE); PROTEIN,URINE NEGATIVE (NEGATIVE); URINE SPECIFIC GRAVITY 1.011; UROBILINOGEN,URINE NEGATIVE mg/dL (<2.0)
[2018-11-03 21:37] LABS: URINE AMPHETAMINES SCREEN NEGATIVE; URINE BARBITURATES SCREEN NEGATIVE; URINE BENZODIAZEPINES SCREEN NEGATIVE; URINE COCAINE SCREEN NEGATIVE; URINE MARIJUANA (THC) SCREEN NEGATIVE; URINE METHADONE SCREEN NEGATIVE; URINE PHENCYCLIDINE SCREEN NEGATIVE
== END 2018-11-03 21:46 | disposition home or self-care (01) ==
LOC: LC 20:33
PROVIDERS: ATTEND Obstetrics & Gynecology
PROC: 4A1HXCZ Monitoring of Products of Conception, Cardiac Rate, External Approach (ICD-10-PCS; principal; 2018-11-03)
DX: O47.03 False labor before 37 completed weeks of gestation, third trimester (principal); Z3A.31 31 weeks gestation of pregnancy
CPT/HCPCS: 80307; 81001; 84112

== ENCOUNTER 2018-11-10 15:34 | Emergency (ER) | payer OTHER ==
[2018-11-10 15:57] VITALS: BP 143/89
--- NOTE | 2018-11-10 16:18 | ER Document Report ---
HPI - HPI Time Seen by Provider: 11/10/18 16:04 Pain Level: 3 Notes: Patient is a 28-year-old female who is approximate 31 weeks who presents the emergency department complaining of right mid back pain that has been relatively constant for the last 4 days. Patient states that she feels as though her muscle is spasming. Patient states that the pain does not radiate. She also reports a history of scoliosis. No history of spinal abscess, IV drug abuse, or diabetes. She is otherwise eating and drinking without difficulties. She is urinating normally and having normal bowel movements. Patient states that she is feeling the baby move normally and does not have any abdominal pain or vaginal bleeding/odor/discharge. No other concerns or complaints. Denies any headache, fever, neck pain, URI, sore throat, chest pain, palpitations, syncope, cough, shortness of breath, wheeze, dyspnea, abdominal pain, nausea/vomiting/diarrhea, urinary retention, dysuria, hematuria, loss of control of bowel or bladder, numbness/tingling, saddle anesthesia, muscle paralysis/weakness, or rash. - ROS Systems Reviewed and Negative: Yes All other systems reviewed and negative - REPRODUCTIVE Reproductive: REPORTS: : Past Medical History - Social History Smoking Status: Never Smoker Family History: Reviewed & Not Pertinent, CAD, COPD, CVA, DM, Hyperlipidemia, Hypertension - Past Medical History Cardiac Medical History: Reports: Hx Hypertension Denies: Hx Heart Attack Pulmonary Medical History: Reports: Hx Asthma - resolved Denies: Hx Bronchitis, Hx COPD, Hx Pneumonia Neurological Medical History: Reports: Hx Migraine. Denies: Hx Seizures Renal/ Medical History: Reports: Hx Pelvic Inflammatory Disease. Denies: Hx Peritoneal Dialysis Musculoskeletal Medical History: Denies Hx Arthritis, Reports Hx Musculoskeletal Trauma Psychiatric Medical History: Reports: Hx Depression, Hx Post Traumatic Stress Disorder Denies: Hx Bipolar Disorder Traumatic Medical History: Reports: Hx Fractures - Fractured ankle Past Surgical History: Reports: Hx Cholecystectomy, Hx Oral Surgery - wisdom tooth removal 07/2016, Hx Orthopedic Surgery - right ankle - Immunizations Immunizations up to date: Yes Hx Diphtheria, Pertussis, Tetanus Vaccination: Yes Vertical Provider Document - CONSTITUTIONAL Agree With Documented VS: Yes Notes: PHYSICAL EXAMINATION: GENERAL: Well-appearing, well-nourished and in no acute distress. LUNGS: Breath sounds clear to auscultation bilaterally and equal. No wheezes rales or rhonchi. HEART: Regular rate and rhythm without murmurs, rubs, gallops. ABDOMEN: abd. No guarding, no rebound. Normal bowel sounds present. No CVA tenderness bilaterally. No pulsatile mass Musculoskeletal: LE's b/l: FROM to passive/active. Strength 5+/5. No deficits noted. No bony tenderness of extremities. Back: FROM to passive/active. Strength 5+/5. No vertebral point tenderness, s tepoffs, or deformities. No other bony tenderness, erythema, swelling, or ecchymosis. SLR negative b/l. + mild tenderness to the Rt thoracic paraspinal mm with mild spasming/trigger point that correlates with pain described. No SI jt tenderness. No foot drop Extremities: No cyanosis, clubbing, or edema b/l. Peripheral pulses 2+. Capillary refill less than 2 seconds. NEUROLOGICAL: Normal speech, normal gait. Normal sensory, motor exams. Reflexes 2+ b/l. PSYCH: Normal mood, normal affect. SKIN: Warm, Dry, normal turgor, no rashes or lesions noted. - INFECTION CONTROL TRAVEL OUTSIDE OF THE [place] IN LAST 30 DAYS: No Course - Re-evaluation Re-evalutation: 11/10/18 16:12 Patient is an afebrile, well-hydrated, 28-year-old male who presents to the ED with acute right thoracic back pain, with trigger point/mild spasm noted. Vitals are acceptable. PE is otherwise unremarkable for any focal neurological deficits. She has no significant tachycardia, tachypnea, or hypoxia. She is nontoxic-appearing and is tolerating p.o. without difficulties. There are no signs of infection. No other red flag symptoms noted. No other labs or imaging warranted at this time based on H&P. Low suspicion for any acute abd, meningitis, fracture, expanding/ruptured AAA, cauda equina syndrome, epidural mass lesion/abscess, herniated disc causing severe spinal stenosis, or other systemic infection at this time. Patient is aware that this condition can change from initial presentation and that she needs monitor symptoms closely for any acute changes. Conservative measures otherwise for symptoms. Recheck with your PCM/OBGYN in 3-5 days. Consider consult with orthopedic/physical therapy. Return to the ED with any worsening/concerning symptoms otherwise as reviewed discharge. Patient is in agreement. Apparently, pt was not happy that I was not providing any strong medicine for her musculoskeletal back pain being 31 weeks and walked directly to the charge desk to complain. I didn't have any indication of a negative interaction with her in the room and she seemed pleasant. She seemed to understand her predicament as I spent a while explaining how to perform ice massage techniques, stretches, and SAFE conservative treatment for her back pain. Pt left without her discharge instructions. - Vital Signs Vital signs: Temp Pulse Resp BP Pulse Ox 98.2 F 86 18 143/89 H 99 11/10/18 15:55 11/10/18 15:55 11/10/18 15:55 11/10/18 15:55 11/10/18 15:55 Discharge - Discharge Clinical Impression: Right-sided thoracic back pain Condition: Stable Disposition: ELOPED Additional Instructions: Rest, Ice/ice massage Tylenol as needed Light stretches daily Strength exercises as able Moist heat and light massage may help F/u with your PCP/OBGYN in 3-5 days for a recheck Consider consult(s) with Orthopedics/physical therapy for ongoing/worsening symptoms Return to the ED with any worsening symptoms and/or development of fever, headache, chest pain, palpitations, syncope, shortness of breath, trouble breathing, abdominal pain, n/v/d, blood in stool/urine, loss of control of bowel/bladder, urinary retention, muscle weakness/paralysis, saddle anesthesia, numbness/tingling, or other worsening symptoms that are concerning to you. Forms: Elevated Blood Pressure Referrals: [facility] [Provider Group] - Follow up as needed
== END 2018-11-10 16:25 | disposition left against medical advice (07) ==
LOC: ER 15:34
DX: O99.89 Other specified diseases and conditions complicating pregnancy, childbirth and the puerperium (principal); M54.6 Pain in thoracic spine; O26.899 Other specified pregnancy related conditions, unspecified trimester; R25.2 Cramp and spasm; O16.9 Unspecified maternal hypertension, unspecified trimester; Z3A.00 Weeks of gestation of pregnancy not specified
CPT/HCPCS: 99281

== ENCOUNTER 2018-11-11 16:57 | Outpatient (CLI) | payer OTHER ==
[2018-11-11 17:46] LABS: APPEARANCE,URINE CLEAR; BILIRUBIN,URINE NEGATIVE (NEGATIVE); COLOR,URINE YELLOW; GLUCOSE, URINE NEGATIVE (NEGATIVE); KETONES,URINE TRACE mg/dL (NEGATIVE); LEUKOCYTE ESTERASE,URINE NEGATIVE (NEGATIVE); NITRITE,URINE NEGATIVE (NEGATIVE); PROTEIN,URINE NEGATIVE (NEGATIVE); URINE SPECIFIC GRAVITY 1.021; UROBILINOGEN,URINE NEGATIVE mg/dL (<2.0)
[2018-11-11 18:02] LABS: URINE AMPHETAMINES SCREEN NEGATIVE; URINE BARBITURATES SCREEN NEGATIVE; URINE BENZODIAZEPINES SCREEN NEGATIVE; URINE COCAINE SCREEN NEGATIVE; URINE MARIJUANA (THC) SCREEN NEGATIVE; URINE METHADONE SCREEN NEGATIVE; URINE PHENCYCLIDINE SCREEN NEGATIVE
[2018-11-11 18:40] LABS: UR PRO/CREAT RATIO RESULT 0.1 mg/mg (0.0-0.2); URINE CREATININE 153.4 mg/dL (16-327); URINE PROTEIN 18.8 mg/dL (<12)
[2018-11-11 19:54] LABS: ABSOLUTE EOSINOPHILS # (AUTO) 0.2 10^3/uL (0.0-0.6); ABSOLUTE LYMPHOCYTES (AUTO) 2.3 10^3/uL (0.5-4.7); ABSOLUTE MONOCYTES (AUTO) 1.3 10^3/uL (0.1-1.4); ABSOLUTE NEUT (AUTO) 11.4 10^3/uL (1.7-8.2); BASOPHILS % (AUTO) 0.2 % (0-2); EOSINOPHILS % (AUTO) 1.6 % (0-6); HEMATOCRIT 32.4 % (36.0-47.0); HEMOGLOBIN 11.4 g/dL (12.0-15.5); LYMPHOCYTES % (AUTO) 15.1 % (13-45); MEAN CORPUSCULAR HEMOGLOBIN 30.4 pg (27.0-33.4); MEAN CORPUSCULAR HGB CONC 35.1 g/dL (32.0-36.0); MEAN CORPUSCULAR VOLUME 87 fl (80-97); MONOCYTES % (AUTO) 8.4 % (3-13); PLATELET COUNT 356 10^3/uL (150-450); RED BLOOD COUNT 3.74 10^6/uL (3.72-5.28); RED CELL DISTRIBUTION WIDTH 13.4 % (11.5-14.0); SEGMENTED NEUTROPHILS % (AUTO) 74.7 % (42-78); TOTAL CELLS COUNTED % (AUTO) 100 %; WHITE BLOOD COUNT 15.2 10^3/uL (4.0-10.5)
[2018-11-11 20:06] LABS: ALANINE AMINOTRANSFERASE 27 U/L (9-52); ALBUMIN 3.2 g/dL (3.5-5.0); ALKALINE PHOSPHATASE 144 U/L (38-126); ANION GAP 12 (5-19); ASPARTATE AMINO TRANSFERASE 23 U/L (14-36); BILIRUBIN,DIRECT 0.2 mg/dL (0.0-0.4); BILIRUBIN,TOTAL 0.3 mg/dL (0.2-1.3); BLOOD UREA NITROGEN 3 mg/dL (7-20); CALCIUM 8.8 mg/dL (8.4-10.2); CARBON DIOXIDE 21 mmol/L (22-30); CHLORIDE 102 mmol/L (98-107); GLUCOSE 82 mg/dL (75-110); SODIUM 134.7 mmol/L (137-145); TOTAL PROTEIN 6.1 g/dL (6.3-8.2); URIC ACID 2.7 mg/dL (2.5-6.2)
[2018-11-11] MEDS ORDERED: HYDROXYZINE PAMOATE 50 MG CAPSULE PO ONE (20:13)
--- NOTE | 2018-11-11 20:27 | Non Stress Test Report ---
Non Stress Test Datetime Report Generated by CPN: 11/11/2018 20:27 DEMOGRAPHIC EGA NST: 32.1 EGA NST: 29.0 INDICATION Indication for Study: Ordered by Provider Indication for Study: Other Indication for Study (NST) Other: LC MONITORING Monitor Explained: Monitor Explained; Test Explained; Patient Verbalized Understanding Monitor Explained: Monitor Explained; Test Explained; Patient Verbalized Understanding Time on Monitor: 11/11/2018 17:27 Time on Monitor: 10/20/2018 21:30 Time off Monitor: 11/11/2018 20:24 Time off Monitor: 10/20/2018 23:50 NST Duration: 177 NST Duration: 140 NST INTERVENTIONS NST Interventions: None NST Interventions: None Physician Notified NST: Dr. Younger Physician Notified NST: Ledesma BABY A: [id number] BABY A Movement : Present Movement : Present Contraction Frequency : none Contraction Frequency : none FHR Baseline : 130 FHR Baseline : 125 Accelerations : 15X15 Accelerations : 10X10 Decelerations : None Decelerations : None Variability : Moderate 6-25bpm Variability : Moderate 6-25bpm NST Review: Meets Criteria for Reactive NST NST Review: Meets Criteria for Reactive NST NST Review and Verified By : Waleska HOLLINS Results: Reactive NST Results: Reactive NST REPORT Report Trigger: Send Report
== END 2018-11-11 20:14 | disposition home or self-care (01) ==
LOC: LC 16:57
PROVIDERS: ATTEND Obstetrics & Gynecology
PROC: 4A1HXCZ Monitoring of Products of Conception, Cardiac Rate, External Approach (ICD-10-PCS; principal; 2018-11-11)
DX: O47.03 False labor before 37 completed weeks of gestation, third trimester (principal); Z3A.32 32 weeks gestation of pregnancy
CPT/HCPCS: 36415; 59025; 80053; 80307; 81001; 82570; 83615; 84156; 84550; 85025

== ENCOUNTER 2018-11-24 14:38 | Emergency (ER) | payer OTHER ==
[2018-11-24 15:07] LABS: APPEARANCE,URINE CLOUDY; BILIRUBIN,URINE NEGATIVE (NEGATIVE); COLOR,URINE YELLOW; GLUCOSE, URINE NEGATIVE (NEGATIVE); KETONES,URINE NEGATIVE (NEGATIVE); LEUKOCYTE ESTERASE,URINE MODERATE (NEGATIVE); NITRITE,URINE NEGATIVE (NEGATIVE); PROTEIN,URINE NEGATIVE (NEGATIVE); UROBILINOGEN,URINE NEGATIVE mg/dL (<2.0)
[2018-11-24 15:10] VITALS: BP 139/94
--- NOTE | 2018-11-24 15:16 | ER Document Report ---
Addendum entered and electronically signed by PAPO KRUGER NP 11/24/18 15:28: Vertical Provider Document - CONSTITUTIONAL Agree With Documented VS: Yes Exam Limitations: No Limitations General Appearance: WD/WN, No Apparent Distress - INFECTION CONTROL TRAVEL OUTSIDE OF THE [place] IN LAST 30 DAYS: No - HEENT HEENT: Atraumatic, Normocephalic - NECK Neck: Supple - RESPIRATORY Respiratory: No Respiratory Distress - CARDIOVASCULAR Cardiovascular: Regular Rate - GI/ABDOMEN Gastrointestinal: Abdomen Non-Tender - MUSCULOSKELETAL/EXTREMETIES Musculoskeletal/Extremeties: MAEW, FROM - NEURO Level of Consciousness: Awake, Alert, Appropriate Motor/Sensory: No Motor Deficit - DERM Integumentary: Warm, Dry Past Medical History - General Information Source: Patient Home Medications: Aspirin [Aspirin 81 mg Chewable Tablet] 1 tab PO DAILY 09/04/18 Labetalol HCl 1 tab PO DAILY 09/04/18 Pnv,Calcium 72/Iron/Folic Acid [ Plus Tablet] 1 tab PO DAILY 09/04/18 Ascorbate Calcium [Vitamin C] 500 mg PO DAILY 11/11/18 Cefdinir 300 mg PO DAILY 11/11/18 Ferrous Sulfate [Iron] 325 mg PO DAILY 11/11/18 Allergies/Adverse Reactions: morphine [Morphine] Allergy (Severe, Verified 11/10/18 15:37) Difficulty breathing/itch shellfish derived Allergy (Severe, Verified 11/10/18 15:37) Anaphylaxis iodine [Iodine] Allergy (Intermediate, Verified 11/10/18 15:37) RASH latex [Latex] Allergy (Intermediate, Verified 11/10/18 15:37) RASH diphenhydramine [From Benadryl] Allergy (Verified 11/10/18 15:37) - Social History Lives with: Family Family History: Reviewed & Not Pertinent, CAD, COPD, CVA, DM, Hyperlipidemia, Hypertension Parental Family History Reviewed: No Children Family History Reviewed: No Sibling(s) Family History Reviewed.: No Smoking Status: Former Smoker Frequency of Alcohol Use: Rare Hx Recreational Drug Use: No Hx Prescription Drug Abuse: No - Past Medical History Cardiac Medical History: Reports: Hx Hypertension Denies: Hx Heart Attack Pulmonary Medical History: Reports: Hx Asthma - resolved Denies: Hx Bronchitis, Hx COPD, Hx Pneumonia Neurological Medical History: Reports: Hx Migraine. Denies: Hx Seizures Renal/ Medical History: Reports: Hx Pelvic Inflammatory Disease. Denies: Hx Peritoneal Dialysis Musculoskeltal Medical History: Denies Hx Arthritis, Reports Hx Musculoskeletal Trauma Psychiatric Medical History: Reports: Hx Depression, Hx Post Traumatic Stress Disorder Denies: Hx Bipolar Disorder Traumatic Medical History: Reports: Hx Fractures - Fractured ankle Hematology: Denies: Anemia - Surgical History Past Surgical History: Reports: Hx Cholecystectomy, Hx Oral Surgery - wisdom tooth removal 07/2016, Hx Orthopedic Surgery - right ankle - Immunizations Immunizations up to date: Yes Addendum entered and electronically signed by PAPO KRUGER NP 11/24/18 15:21: Discharge - Discharge Clinical Impression: High blood pressure Qualifiers: Hypertension type: unspecified Qualified Code(s): I10 - Essential (primary) hypertension Headache Qualifiers: Headache type: unspecified Headache chronicity pattern: unspecified pattern Condition: Stable Disposition: OTHER Additional Instructions: Follow up with L&D now Original Note: ED Medical Screen (RME) - General Chief Complaint: High Blood Pressure Stated Complaint: HEADACHE,ELEVATED BLOOD PRESSURE Time Seen by Provider: 11/24/18 15:12 Mode of Arrival: Ambulatory Notes: She presents emergency department with complaints of high blood pressure and headache. Patient is 33 weeks 4 days . . Pt reports pre-eclamptic x2. Contacted Dr. Samy Garcia and he said send her upstairs to L&D. I have greeted and performed a rapid initial assessment of this patient. A comprehensive ED assessment and evaluation of the patient, analysis of test results and completion of the medical decision making process will be conducted by additional ED providers. Dictation of this chart was performed using voice recognition software; therefore, there may be some unintended grammatical errors. TRAVEL OUTSIDE OF THE [place] IN LAST 30 DAYS: No - Related Data Allergies/Adverse Reactions: morphine [Morphine] Allergy (Severe, Verified 11/10/18 15:37) Difficulty breathing/itch shellfish derived Allergy (Severe, Verified 11/10/18 15:37) Anaphylaxis iodine [Iodine] Allergy (Intermediate, Verified 11/10/18 15:37) RASH latex [Latex] Allergy (Intermediate, Verified 11/10/18 15:37) RASH diphenhydramine [From Benadryl] Allergy (Verified 11/10/18 15:37) Past Medical History - Social History Family history: Reviewed & Not Pertinent, Hypertension, Other - copd - Past Medical History Cardiac Medical History: Reports: Hx Hypertension Denies: Hx Heart Attack Pulmonary Medical History: Reports: Hx Asthma - resolved Denies: Hx Bronchitis, Hx COPD, Hx Pneumonia Neurological Medical History: Reports: Hx Migraine. Denies: Hx Seizures Renal/ Medical History: Reports: Hx Pelvic Inflammatory Disease. Denies: Hx Peritoneal Dialysis Musculoskeltal Medical History: Denies Hx Arthritis, Reports Hx Musculoskeletal Trauma Psychiatric Medical History: Reports: Hx Depression, Hx Post Traumatic Stress Disorder Denies: Hx Bipolar Disorder Traumatic Medical History: Reports: Hx Fractures - Fractured ankle Past Surgical History: Reports: Hx Cholecystectomy, Hx Oral Surgery - wisdom tooth removal 07/2016, Hx Orthopedic Surgery - right ankle - Immunizations Immunizations up to date: Yes Hx Diphtheria, Pertussis, Tetanus Vaccination: Yes Physical Exam - Vital signs Vitals: Temp Pulse Resp BP Pulse Ox 97.8 F 93 20 164/99 H 100 11/24/18 14:47 11/24/18 14:47 11/24/18 14:47 11/24/18 14:47 11/24/18 14:47 Course - Vital Signs Vital signs: Temp Pulse Resp BP Pulse Ox 97.8 F 93 20 139/94 H 100 11/24/18 14:47 11/24/18 14:47 11/24/18 14:47 11/24/18 14:55 11/24/18 14:47 - Laboratory Laboratory results interpreted by me: 11/24/18 14:42 Ur Leukocyte Esterase MODERATE H Urine Ascorbic Acid 20 H
== END 2018-11-24 15:26 | disposition admitted as inpatient to this hospital (09) ==
LOC: ER 14:38
DX: I10 Essential (primary) hypertension (principal); R51 Headache; J45.909 Unspecified asthma, uncomplicated; Z88.5 Allergy status to narcotic agent; Z91.040 Latex allergy status; Z88.8 Allergy status to other drugs, medicaments and biological substances; Z87.892 Personal history of anaphylaxis; Z91.013 Allergy to seafood
CPT/HCPCS: 81001; 99283

== ENCOUNTER 2018-11-24 15:30 | Outpatient (CLI) | payer OTHER ==
[2018-11-24 16:30] LABS: APPEARANCE,URINE SLIGHTLY-CLOUDY; BILIRUBIN,URINE NEGATIVE (NEGATIVE); COLOR,URINE YELLOW; GLUCOSE, URINE NEGATIVE (NEGATIVE); KETONES,URINE NEGATIVE (NEGATIVE); LEUKOCYTE ESTERASE,URINE SMALL (NEGATIVE); NITRITE,URINE NEGATIVE (NEGATIVE); PROTEIN,URINE NEGATIVE (NEGATIVE); URINE SPECIFIC GRAVITY 1.012; UROBILINOGEN,URINE NEGATIVE mg/dL (<2.0)
[2018-11-24 16:46] LABS: URINE AMPHETAMINES SCREEN NEGATIVE; URINE BARBITURATES SCREEN NEGATIVE; URINE BENZODIAZEPINES SCREEN NEGATIVE; URINE COCAINE SCREEN NEGATIVE; URINE MARIJUANA (THC) SCREEN NEGATIVE; URINE METHADONE SCREEN NEGATIVE; URINE PHENCYCLIDINE SCREEN NEGATIVE
[2018-11-24] MEDS ORDERED: ACETAMINOPHEN 325 MG TABLET PO PRN (17:25)
[2018-11-24] MEDS ORDERED: ACETAMINOPHEN 325 MG TABLET ONE (17:29)
== END 2018-11-24 18:34 | disposition home or self-care (01) ==
LOC: LC 15:30
PROVIDERS: ATTEND Obstetrics & Gynecology
PROC: 4A1HXCZ Monitoring of Products of Conception, Cardiac Rate, External Approach (ICD-10-PCS; principal; 2018-11-24)
DX: O16.3 Unspecified maternal hypertension, third trimester (principal); Z3A.33 33 weeks gestation of pregnancy
CPT/HCPCS: 59025; 80307; 81005

== ENCOUNTER 2018-12-05 22:14 | Emergency (ER) | payer OTHER ==
--- NOTE | 2018-12-06 00:05 | ER Document Report ---
ED General - General Chief Complaint: Leg Pain Stated Complaint: LEG PAIN Time Seen by Provider: 12/06/18 00:03 Primary Care Provider: [facility] [Provider Group] - Follow up in 3-5 days Notes: Patient is a 28-year-old female, with history of preeclampsia, recent delivery 10 days ago that presents to the emergency department for chief complaint of bruising on her left hip, and high blood pressure. Patient states that she was put on verapamil and captopril for her blood pressure at discharge from the hospital this past Thursday, but her blood pressures been running high at home still, and then when she woke up on Thursday she noticed a large bruise on her left hip, she is not sure how she got it. She is been having aching pains down her left leg as well. She denies any leg swelling or redness. She did receive high doses of magnesium, during her hospital stay she states. She is concerned about the blood pressure, states she was put on the medication she is on to help control the blood pressure and allow her to breast-feed, but at this point she states she wants the blood pressure under better control, she was on labetalol prior to delivery, which did seem to control it at that time. She denies any lightheadedness, dizziness, headaches, chest pain, shortness of breath, difficulty breathing, foamy urine, or decreased urination. Past Medical History: Preeclampsia Past Surgical History: Denies surgical history Social History: Denies tobacco, alcohol or drug use. Family History: Reviewed and noncontributory for presenting illness Allergies: Reviewed, see documented allergy list. REVIEW OF SYSTEMS: Other than noted above, the 12 point review of systems was reviewed with the patient and were negative, all pertinent findings are included in the HPI. PHYSICAL EXAMINATION: Vital signs reviewed, nursing noted reviewed. GENERAL: Well-appearing, well-nourished and in no acute distress. HEAD: Atraumatic, normocephalic. EYES: Eyes appear normal, extraocular movements intact, sclera anicteric, conjunctiva are normal. ENT: nares patent, oropharynx clear without exudates. Moist mucous membranes. NECK: Normal range of motion, supple without lymphadenopathy LUNGS: Breath sounds clear to auscultation bilaterally and equal. No wheezes rales or rhonchi. HEART: Regular rate and rhythm without murmurs ABDOMEN: Soft, nontender, normoactive bowel sounds. No rebound, guarding, or rigidity. No masses appreciated. EXTREMITIES: The left lower extremity, is not erythematous, nonedematous, there is mild tenderness to palpation across the anterior muscular sure of the thigh, no particular calf tenderness. The rest the patient's extremity exam is grossly unremarkable, good range of motion, no edema. NEUROLOGICAL: No focal neurological deficits. Moves all extremities spontaneously Motor and sensory grossly intact on exam. PSYCH: Patient appears anxious on exam. SKIN: Warm, Dry, normal turgor, there is an area of ecchymosis over the left hip, measuring approximately 4 cm x 4 cm, nontender to palpate. TRAVEL OUTSIDE OF THE [place] IN LAST 30 DAYS: No - Related Data Allergies/Adverse Reactions: morphine [Morphine] Allergy (Severe, Verified 11/24/18 15:41) Difficulty breathing/itch shellfish derived Allergy (Severe, Verified 11/24/18 15:41) Anaphylaxis iodine [Iodine] Allergy (Intermediate, Verified 11/24/18 15:41) RASH latex [Latex] Allergy (Intermediate, Verified 11/24/18 15:41) RASH diphenhydramine [From Benadryl] Allergy (Verified 11/24/18 15:41) Past Medical History - Social History Smoking Status: Never Smoker Family History: Reviewed & Not Pertinent, CAD, COPD, CVA, DM, Hyperlipidemia, Hypertension - Past Medical History Cardiac Medical History: Reports: Hx Hypertension Denies: Hx Heart Attack Pulmonary Medical History: Reports: Hx Asthma - resolved Denies: Hx Bronchitis, Hx COPD, Hx Pneumonia Neurological Medical History: Reports: Hx Migraine. Denies: Hx Seizures Renal/ Medical History: Reports: Hx Pelvic Inflammatory Disease. Denies: Hx Peritoneal Dialysis Musculoskeletal Medical History: Denies Hx Arthritis, Reports Hx Musculoskeletal Trauma Psychiatric Medical History: Reports: Hx Depression, Hx Post Traumatic Stress Disorder Denies: Hx Bipolar Disorder Traumatic Medical History: Reports: Hx Fractures - Fractured ankle Past Surgical History: Reports: Hx Cholecystectomy, Hx Oral Surgery - wisdom tooth removal 07/2016, Hx Orthopedic Surgery - right ankle - Immunizations Immunizations up to date: Yes Hx Diphtheria, Pertussis, Tetanus Vaccination: Yes Physical Exam - Vital signs Vitals: Temp Pulse BP Pulse Ox 98.4 F 80 171/108 H 100 12/05/18 23:56 12/05/18 23:56 12/05/18 23:56 12/05/18 23:56 Course - Re-evaluation Re-evalutation: Patient seen and examined vital signs reviewed. Laboratory data and/or imaging were ordered as appropriate for the patient's presenting symptoms and complaint, with consideration of any critical or life threatening conditions that may be associated with their obtained history and e xam as noted above. Patient was treated with IV fluids, given IV potassium replacement, and a dose of p.o. labetalol, 200 mg, which was her prior dosing blood pressure reevaluated. Results were reviewed when available and demonstrated no thrombocytopenia, normal liver function, mild hypokalemia, given replacement blood work was essentially unremarkable, only mild anemia, which is not unexpected after recent delivery. The patient was re-evaluated and was stable Evaluation was most consistent with bruising, leg pain, possible due to mild hyperkalemia, or just leg cramping, after delivery, muscle spasming, patient advised to follow-up with her MEDICAL LOGISTICS SPECIALIST, discussed that there the medications that she is on, and to hear back on labetalol, but discussed with her that breast- feeding is contraindicated with this medication, she understood this, and will switch to formula feeding, patient given 1 week's worth of the medication, advised to continue taking her verapamil and captopril, as previously directed, until further instructed by her MEDICAL LOGISTICS SPECIALIST. Results were discussed with the patient at this point, after careful consideration I feel that that patient can be discharged from the emergency department, the patient was educated treatments and reasons to return to the emergency department based on their presumed diagnosis as noted above, they were advised to followup with a primary care physician in 2-3 days. Patient was agreeable to plan of care. *Note is created using voice recognition software and may contain spelling, syntax or grammatical errors. Laboratory 12/06/18 12/06/18 00:42 00:42 WBC 11.7 H RBC 4.15 Hgb 12.5 Hct 36.0 MCV 87 MCH 30.2 MCHC 34.7 RDW 12.7 Plt Count 472 H Seg Neutrophils % 62.5 Lymphocytes % 26.7 Monocytes % 7.8 Eosinophils % 1.9 Basophils % 1.1 Absolute Neutrophils 7.3 Absolute Lymphocytes 3.1 Absolute Monocytes 0.9 Absolute Eosinophils 0.2 Absolute Basophils 0.1 Sodium 139.8 Potassium 3.4 L Chloride 107 Carbon Dioxide 24 Anion Gap 9 BUN 8 Creatinine 0.55 Est GFR ( Amer) > 60 Est GFR (Non-Af Amer) > 60 Glucose 106 Calcium 9.2 Total Bilirubin 0.4 Direct Bilirubin 0.2 Neonat Total Bilirubin Not Reportable Neonat Direct Bilirubin Not Reportable Neonat Indirect Bili Not Reportable AST 34 ALT 46 Alkaline Phosphatase 138 H Total Protein 7.5 Albumin 4.1 - Vital Signs Vital signs: Temp Pulse Resp BP Pulse Ox 97.6 F 66 139/92 H 100 12/06/18 02:30 12/06/18 02:30 12/06/18 02:30 12/06/18 02:30 - Laboratory Result Diagrams: 12/06/18 00:42 12/06/18 00:42 Laboratory results interpreted by me: 12/06/18 12/06/18 00:42 00:42 WBC 11.7 H Plt Count 472 H Potassium 3.4 L Alkaline Phosphatase 138 H Discharge - Discharge Clinical Impression: Leg pain, left, Hypertension Condition: Stable Disposition: HOME, SELF-CARE Instructions: High Blood Pressure, Requiring Treatment ([facility]) Additional Instructions: Please stay hydrated as best as possible, start taking the prescribed labetalol 100 mg twice daily, and continue taking the current medications prescribed for your blood pressure, and follow-up with the MEDICAL LOGISTICS SPECIALIST and her prescribing physicians to discuss these medications going forward, you should not be breast-feeding while on this medication. Prescriptions: RX: Labetalol HCl 100 mg PO BID #14 tablet Referrals: [facility] [Provider Group] - Follow up in 3-5 days
[2018-12-06] MEDS ORDERED: LABETALOL HCL 200 MG TABLET PO ONE (00:20)
[2018-12-06] MEDS ORDERED: NORMAL SALINE 1000 ML 1,000 ML IV ONE (00:20)
[2018-12-06 00:50] LABS: ABSOLUTE BASOPHILS # (AUTO) 0.1 10^3/uL (0.0-0.2); ABSOLUTE EOSINOPHILS # (AUTO) 0.2 10^3/uL (0.0-0.6); ABSOLUTE LYMPHOCYTES (AUTO) 3.1 10^3/uL (0.5-4.7); ABSOLUTE MONOCYTES (AUTO) 0.9 10^3/uL (0.1-1.4); ABSOLUTE NEUT (AUTO) 7.3 10^3/uL (1.7-8.2); BASOPHILS % (AUTO) 1.1 % (0-2); EOSINOPHILS % (AUTO) 1.9 % (0-6); HEMOGLOBIN 12.5 g/dL (12.0-15.5); LYMPHOCYTES % (AUTO) 26.7 % (13-45); MEAN CORPUSCULAR HEMOGLOBIN 30.2 pg (27.0-33.4); MEAN CORPUSCULAR HGB CONC 34.7 g/dL (32.0-36.0); MEAN CORPUSCULAR VOLUME 87 fl (80-97); MONOCYTES % (AUTO) 7.8 % (3-13); PLATELET COUNT 472 10^3/uL (150-450); RED BLOOD COUNT 4.15 10^6/uL (3.72-5.28); RED CELL DISTRIBUTION WIDTH 12.7 % (11.5-14.0); SEGMENTED NEUTROPHILS % (AUTO) 62.5 % (42-78); TOTAL CELLS COUNTED % (AUTO) 100 %; WHITE BLOOD COUNT 11.7 10^3/uL (4.0-10.5)
[2018-12-06 01:06] LABS: ALANINE AMINOTRANSFERASE 46 U/L (9-52); ALBUMIN 4.1 g/dL (3.5-5.0); ALKALINE PHOSPHATASE 138 U/L (38-126); ANION GAP 9 (5-19); ASPARTATE AMINO TRANSFERASE 34 U/L (14-36); BILIRUBIN,DIRECT 0.2 mg/dL (0.0-0.4); BILIRUBIN,TOTAL 0.4 mg/dL (0.2-1.3); BLOOD UREA NITROGEN 8 mg/dL (7-20); CALCIUM 9.2 mg/dL (8.4-10.2); CARBON DIOXIDE 24 mmol/L (22-30); CHLORIDE 107 mmol/L (98-107); GLUCOSE 106 mg/dL (75-110); POTASSIUM 3.4 mmol/L (3.6-5.0); SODIUM 139.8 mmol/L (137-145); TOTAL PROTEIN 7.5 g/dL (6.3-8.2)
[2018-12-06] MEDS ORDERED: POTASSIUM CHLORIDE 10 MEQ CAPSULE.ER PO ONE (01:09)
[2018-12-06 02:36] VITALS: BP 139/92
== END 2018-12-06 02:36 | disposition home or self-care (01) ==
LOC: ER 22:14
DX: M79.605 Pain in left leg (principal); I10 Essential (primary) hypertension; Z90.49 Acquired absence of other specified parts of digestive tract; Z88.6 Allergy status to analgesic agent; Z91.040 Latex allergy status; Z91.013 Allergy to seafood
CPT/HCPCS: 99283; 36415; 85025; 80053; J7030

== ENCOUNTER 2018-12-08 18:54 | Emergency (ER) | payer OTHER ==
[2018-12-08] MEDS ORDERED: ACETAMINOPHEN 325 MG TABLET PO ONE (20:30)
[2018-12-08 21:51] LABS: APPEARANCE,URINE CLEAR; BILIRUBIN,URINE NEGATIVE (NEGATIVE); COLOR,URINE STRAW; GLUCOSE, URINE NEGATIVE (NEGATIVE); KETONES,URINE NEGATIVE (NEGATIVE); LEUKOCYTE ESTERASE,URINE NEGATIVE (NEGATIVE); NITRITE,URINE NEGATIVE (NEGATIVE); PROTEIN,URINE NEGATIVE (NEGATIVE); URINE SPECIFIC GRAVITY 1.012; UROBILINOGEN,URINE NEGATIVE mg/dL (<2.0)
--- NOTE | 2018-12-08 23:14 | ER Document Report ---
ED Medical Screen (RME) - General Chief Complaint: Headache Stated Complaint: HEADACHE Time Seen by Provider: 12/08/18 23:08 Notes: 28-year-old female with chief complaint of fall, she states she fell 2 days ago causing pain and bruising to her left hip, she also states she hit her ahead. Denies syncope, nausea/vomiting but does report having intermittent headaches and feeling "out of it" since then. Denies any other locations of pain. Second concern is uncontrolled hypertension status post preeclampsia, she had delivery at [facility] on 11/25, was seen here 3 days ago and had labetalol added to her captopril and verapamil. Denies current headache. TRAVEL OUTSIDE OF THE [place] IN LAST 30 DAYS: No - Related Data Allergies/Adverse Reactions: morphine [Morphine] Allergy (Severe, Verified 12/08/18 18:56) Difficulty breathing/itch shellfish derived Allergy (Severe, Verified 12/08/18 18:56) Anaphylaxis iodine [Iodine] Allergy (Intermediate, Verified 12/08/18 18:56) RASH latex [Latex] Allergy (Intermediate, Verified 12/08/18 18:56) RASH diphenhydramine [From Benadryl] Allergy (Verified 12/08/18 18:56) Past Medical History - Social History Frequency of alcohol use: None Drug Abuse: None Family history: Reviewed & Not Pertinent, Hypertension, Other - copd - Past Medical History Cardiac Medical History: Reports: Hx Hypertension Denies: Hx Heart Attack Pulmonary Medical History: Reports: Hx Asthma - resolved Denies: Hx Bronchitis, Hx COPD, Hx Pneumonia Neurological Medical History: Reports: Hx Migraine. Denies: Hx Seizures Renal/ Medical History: Reports: Hx Pelvic Inflammatory Disease. Denies: Hx Peritoneal Dialysis Musculoskeltal Medical History: Denies Hx Arthritis, Reports Hx Musculoskeletal Trauma Psychiatric Medical History: Reports: Hx Depression, Hx Post Traumatic Stress Disorder Denies: Hx Bipolar Disorder Traumatic Medical History: Reports: Hx Fractures - Fractured ankle Past Surgical History: Reports: Hx Cholecystectomy, Hx Oral Surgery - wisdom tooth removal 07/2016, Hx Orthopedic Surgery - right ankle - Immunizations Immunizations up to date: Yes Hx Diphtheria, Pertussis, Tetanus Vaccination: Yes Physical Exam - Vital signs Vitals: Temp Pulse Resp BP Pulse Ox 98.8 F 103 H 18 166/98 H 94 12/08/18 19:05 12/08/18 19:05 12/08/18 19:05 12/08/18 19:05 12/08/18 19:05 - Abdominal Inspection: Normal Tenderness: Nontender - Extremities General lower extremity: Other - Large bruise noted over the left femoral head area, abdomen unremarkable however, unremarkable extremity otherwise, ambulates without difficulty, normal distal neurovascular exam Course - Re-evaluation Re-evalutation: I have greeted and performed a rapid initial assessment of this patient. A comprehensive ED assessment and evaluation of the patient, analysis of test results and completion of the medical decision making process will be conducted by additional ED providers. - Vital Signs Vital signs: Temp Pulse Resp BP Pulse Ox 98.8 F 103 H 18 166/98 H 94 12/08/18 19:05 12/08/18 19:05 12/08/18 19:05 12/08/18 19:05 12/08/18 19:05 - Laboratory Laboratory results interpreted by me: 12/08/18 19:40 Urine Blood SMALL H
[2018-12-08 23:34] LABS: ABSOLUTE BASOPHILS # (AUTO) 0.1 10^3/uL (0.0-0.2); ABSOLUTE EOSINOPHILS # (AUTO) 0.2 10^3/uL (0.0-0.6); ABSOLUTE LYMPHOCYTES (AUTO) 2.7 10^3/uL (0.5-4.7); ABSOLUTE MONOCYTES (AUTO) 0.8 10^3/uL (0.1-1.4); ABSOLUTE NEUT (AUTO) 8.7 10^3/uL (1.7-8.2); BASOPHILS % (AUTO) 0.4 % (0-2); EOSINOPHILS % (AUTO) 1.8 % (0-6); HEMATOCRIT 36.7 % (36.0-47.0); HEMOGLOBIN 12.6 g/dL (12.0-15.5); LYMPHOCYTES % (AUTO) 21.6 % (13-45); MEAN CORPUSCULAR HEMOGLOBIN 30.1 pg (27.0-33.4); MEAN CORPUSCULAR HGB CONC 34.4 g/dL (32.0-36.0); MEAN CORPUSCULAR VOLUME 87 fl (80-97); MONOCYTES % (AUTO) 6.3 % (3-13); PLATELET COUNT 495 10^3/uL (150-450); RED CELL DISTRIBUTION WIDTH 12.9 % (11.5-14.0); SEGMENTED NEUTROPHILS % (AUTO) 69.9 % (42-78); TOTAL CELLS COUNTED % (AUTO) 100 %; WHITE BLOOD COUNT 12.5 10^3/uL (4.0-10.5)
--- NOTE | 2018-12-08 23:51 | RADIOLOGY REPORT (SQ) ---
EXAM DESCRIPTION: XR HIP 2 OR MORE VIEWS COMPLETED DATE/TME: 12/08/2018 23:08 CLINICAL HISTORY: 28 years, Female, fall, bruising, pain COMPARISON: 08/01/2017. NUMBER OF VIEWS: Two TECHNIQUE: Single frontal view of the pelvis and single lateral view of the LEFT hip was obtained. LIMITATIONS: None. FINDINGS: No fracture or dislocation. The joint spaces are preserved. Soft tissues are within normal limits. IMPRESSION: No acute radiographic abnormality or specific findings to suggest etiology of the patient's symptoms. copyright 2010 [employer]- All Rights Reserved
[2018-12-08 23:55] LABS: ALANINE AMINOTRANSFERASE 40 U/L (9-52); ALKALINE PHOSPHATASE 122 U/L (38-126); ANION GAP 11 (5-19); ASPARTATE AMINO TRANSFERASE 25 U/L (14-36); BILIRUBIN,DIRECT 0.2 mg/dL (0.0-0.4); BILIRUBIN,TOTAL 0.3 mg/dL (0.2-1.3); BLOOD UREA NITROGEN 7 mg/dL (7-20); CALCIUM 9.6 mg/dL (8.4-10.2); CARBON DIOXIDE 24 mmol/L (22-30); CHLORIDE 105 mmol/L (98-107); GLUCOSE 98 mg/dL (75-110); POTASSIUM 4.1 mmol/L (3.6-5.0); SODIUM 140.4 mmol/L (137-145); TOTAL PROTEIN 7.4 g/dL (6.3-8.2)
[2018-12-09 00:15] VITALS: BP 140/101
[2018-12-09] MEDS ORDERED: IBUPROFEN 600 MG TABLET PO ONE (00:15)
--- NOTE | 2018-12-09 00:33 | ER Document Report ---
ED General - General Chief Complaint: Headache Stated Complaint: HEADACHE Time Seen by Provider: 12/08/18 23:08 Notes: Patient is a 28-year-old female with chief complaint of fall, she states she fell 2 days ago causing pain and bruising to her left hip, she also states she hit her head. Denies syncope, nausea/vomiting but does report having intermittent headaches and feeling "out of it" since then. Denies any other locations of pain. Denies focal numbness or weakness. Second concern is uncontrolled hypertension status post preeclampsia, she had delivery at [facility] on 11/25, was seen here 3 days ago and had labetalol added to her captopril and verapamil. Denies current headache. TRAVEL OUTSIDE OF THE [place] IN LAST 30 DAYS: No - Related Data Allergies/Adverse Reactions: morphine [Morphine] Allergy (Severe, Verified 12/08/18 18:56) Difficulty breathing/itch shellfish derived Allergy (Severe, Verified 12/08/18 18:56) Anaphylaxis iodine [Iodine] Allergy (Intermediate, Verified 12/08/18 18:56) RASH latex [Latex] Allergy (Intermediate, Verified 12/08/18 18:56) RASH diphenhydramine [From Benadryl] Allergy (Verified 12/08/18 18:56) Past Medical History - General Information source: Patient - Social History Smoking Status: Never Smoker Frequency of alcohol use: None Drug Abuse: None Lives with: Family Family History: Reviewed & Not Pertinent, CAD, COPD, CVA, DM, Hyperlipidemia, Hypertension Patient has suicidal ideation: No Patient has homicidal ideation: No - Past Medical History Cardiac Medical History: Reports: Hx Hypertension Denies: Hx Heart Attack Pulmonary Medical History: Reports: Hx Asthma - resolved Denies: Hx Bronchitis, Hx COPD, Hx Pneumonia Neurological Medical History: Reports: Hx Migraine. Denies: Hx Seizures Renal/ Medical History: Reports: Hx Pelvic Inflammatory Disease. Denies: Hx Peritoneal Dialysis Musculoskeletal Medical History: Denies Hx Arthritis, Reports Hx Musculoskeletal Trauma Psychiatric Medical History: Reports: Hx Depression, Hx Post Traumatic Stress Disorder Denies: Hx Bipolar Disorder Traumatic Medical History: Reports: Hx Fractures - Fractured ankle Past Surgical History: Reports: Hx Cholecystectomy, Hx Oral Surgery - wisdom too th removal 07/2016, Hx Orthopedic Surgery - right ankle - Immunizations Immunizations up to date: Yes Hx Diphtheria, Pertussis, Tetanus Vaccination: Yes Review of Systems - Review of Systems Constitutional: No symptoms reported EENT: No symptoms reported Cardiovascular: No symptoms reported Respiratory: No symptoms reported Gastrointestinal: No symptoms reported Genitourinary: No symptoms reported Female Genitourinary: See HPI Musculoskeletal: See HPI Skin: No symptoms reported Hematologic/Lymphatic: No symptoms reported Neurological/Psychological: See HPI Physical Exam - Vital signs Vitals: Temp Pulse Resp BP Pulse Ox 98.8 F 103 H 18 166/98 H 94 12/08/18 19:05 12/08/18 19:05 12/08/18 19:05 12/08/18 19:05 12/08/18 19:05 - Notes Notes: GENERAL: Alert, interacts well. No acute distress. HEAD: Normocephalic, atraumatic. EYES: Pupils equal, round, and reactive to light. Extraocular movements intact. ENT: Oral mucosa moist, tongue midline. Oropharynx unremarkable. Airway patent. Nares patent, no nasal septal hematoma, TM's intact. NECK: Full range of motion. Supple. Trachea midline. LUNGS: Clear to auscultation bilaterally, no wheezes, rales, or rhonchi. No respiratory distress. HEART: Regular rate and rhythm. No murmur ABDOMEN: Soft, non-tender. Non-distended. Bowel sounds present in all 4 quadrants. No signs of trauma. GENITOURINARY: Deferred EXTREMITIES: Moves all 4 extremities spontaneously. No edema, normal radial and dorsalis pedis pulses bilaterally. No cyanosis. There is a bruise over the left femoral head area with minimal soft tissue swelling and in the area consistent with a small hematoma. No abnormal erythema or heat. Range of motion is still intact. Ambulates with minimal difficulty. Normal distal neurovascular exam. BACK: no cervical, thoracic, lumbar midline tenderness. No saddle anesthesia, normal distal neurovascular exam. NEUROLOGICAL: Alert and oriented x3. Normal speech. Cranial nerves II through XII grossly intact. PSYCH: Anxious. Frequently gets up and paces around. SKIN: Warm, dry, normal turgor. No rashes or lesions noted. Course - Re-evaluation Re-evalutation: Patient is a very anxious individual, she frequently gets up and paces around. She states she has not slept much in the past few days because of her traveling back and forth between seeing her at the hospital. Appears to be some component of anxiety here today. Patient is well-appearing otherwise, she is not tachycardic on my exam, she has no symptoms on my evaluation except for a slight limp and obvious contusion over the left hip with what appears to be a small hematoma. The x-ray of the hip was negative, she has no abdominal tenderness or bruising, I do not see any other signs of trauma including over the head. She reports that she had a head injury but she did not have loss of consciousness, vomiting, confusion, and she does not currently have a headache. As result I have a very low suspicion of intracranial hemorrhage. Most likely some intermittent postconcussive symptoms. Her blood pressure is elevated but there is also an anxiety component. She is on 3 blood pressure medications, her blood pressure is not significantly different from her previous evaluation a couple of days ago. In addition to this she does not have thrombocytopenia, LFT elevations, protein in the urine, and she has multiple weeks out from her /delivery. I did discuss all of these things with the patient. Patient states satisfaction with all of these findings, she has no other requests, she asks to be given something for pain for the hip and we decided on ibuprofen. She became calm, smiling, well-appearing. Discussed close follow-up with MERCHANDISING MANAGER, discussed return precautions. Patient states satisfaction and agreement. Patient noted to have left after discussion with me and did not wait for her paperwork to be handed to her from the nurse. - Vital Signs Vital signs: Temp Pulse Resp BP Pulse Ox 98.8 F 91 20 140/101 H 100 12/08/18 19:05 12/09/18 00:12 12/09/18 00:12 12/09/18 00:12 12/09/18 00:12 - Laboratory Result Diagrams: 12/08/18 23:18 12/08/18 23:18 Laboratory results interpreted by me: 12/08/18 12/08/18 19:40 23:18 WBC 12.5 H Plt Count 495 H Absolute Neutrophils 8.7 H Urine Blood SMALL H Discharge - Discharge Clinical Impression: Left hip pain, Elevated blood pressure reading Head injury Qualifiers: Encounter type: initial encounter Qualified Code(s): S09.90XA - Unspecified injury of head, initial encounter Condition: Stable Disposition: HOME, SELF-CARE Additional Instructions: Your x-ray does not show fracture. Your labs do not show concerning abnormality in regards to your blood pressure. Ice the hematoma over your left hip, you can take [id number] anti- inflammatories or as prescribed. Your head injury and symptoms are most consistent with a postconcussive syndrome, seeing instructions as listed below. Follow-up closely with your MERCHANDISING MANAGER and primary. Return for any concerning symptoms. Post-Concussion Syndrome Post-concussion syndrome often follows a mild head injury. Dizziness, mild nausea, mild headache, trouble concentrating, and a general sense of "not being right" may persist for a week or two. This is a frequent complication of concussion. However, if the symptoms worsen, or new symptoms develop, you should be re-examined by the physician. There is no specific cure for post-concussion syndrome. You can take mild pain medication such as ibuprofen or acetaminophen. While you should not drive if you are dizzy, you can get back to your regular activities as quickly as the symptoms will allow. And while vigorous exercise may worsen the headache, mild physical activity often is helpful. Sitting and thinking about your symptoms will worsen them. If difficulties continue, you may need referral for special therapy to help you regain full mental function. Call the physician if you are worsening, or if symptoms are still present in one week. Report any new symptoms immediately. Prescriptions: Ibuprofen [Motrin 600 mg Tablet] 600 mg PO Q8HP PRN #24 tablet PRN Reason:
--- NOTE | 2018-12-09 08:42 | EKG REPORT ---
SEVERITY:- ABNORMAL ECG - SINUS RHYTHM CONSIDER LEFT VENTRICULAR HYPERTROPHY NONSPECIFIC ST-T CHANGES- INFERIOR LEADS : Confirmed by: Jacobo Rios MD 09-Dec-2018 08:42:01
== END 2018-12-09 00:30 | disposition home or self-care (01) ==
LOC: ER 18:54
DX: S09.90XA Unspecified injury of head, initial encounter (principal); R03.0 Elevated blood-pressure reading, without diagnosis of hypertension; M25.552 Pain in left hip; W19.XXXA Unspecified fall, initial encounter; Z88.6 Allergy status to analgesic agent; Z91.040 Latex allergy status; Z90.49 Acquired absence of other specified parts of digestive tract
CPT/HCPCS: 36415; 80053; 81001; 85025; 93005; 93010; 99284

== ENCOUNTER 2018-12-17 19:34 | Emergency (ER) | payer OTHER ==
[2018-12-17 20:00] VITALS: BP 134/87
[2018-12-17] MEDS ORDERED: ACETAMINOPHEN 325 MG TABLET PO ONE (21:22)
--- NOTE | 2018-12-17 21:25 | ER Document Report ---
HPI - HPI Patient complains to provider of: breast pressure Time Seen by Provider: 12/17/18 21:13 Pain Level: 5 Context: Patient is a 20-year-old female presents to the emergency department for "fullness" in her right breast. Patient states she was recently seen her primary care provider diagnosed with mastitis. States she was on Keflex and finish the full course. States the last 24 hours she had noticed some fullness in bilateral breast. Patient states her child is in the N[facility]. States she is attempting to breast-feed but states that the baby is "not taking it like she should." Mother states she has been pumping "every once in a while." Patient states she is saw her primary care provider at [facility] on the stated she needed to "pump more." Patient states she came to the emergency room for a second opinion. Patient is denying fever, chills, redness, swelling, discharge from bilateral breasts. She is also denying vomiting or headache. - REPRODUCTIVE Reproductive: DENIES: : - DERM Skin Color: Normal Past Medical History - General Information source: Patient - Social History Smoking Status: Never Smoker Chew tobacco use (# tins/day): No Frequency of alcohol use: None Drug Abuse: None Family History: Reviewed & Not Pertinent, CAD, COPD, CVA, DM, Hyperlipidemia, Hypertension Patient has suicidal ideation: No Patient has homicidal ideation: No - Past Medical History Cardiac Medical History: Reports: Hx Hypertension Denies: Hx Heart Attack Pulmonary Medical History: Reports: Hx Asthma - resolved Denies: Hx Bronchitis, Hx COPD, Hx Pneumonia Neurological Medical History: Reports: Hx Migraine. Denies: Hx Seizures Renal/ Medical History: Reports: Hx Pelvic Inflammatory Disease. Denies: Hx Peritoneal Dialysis Musculoskeletal Medical History: Denies Hx Arthritis, Reports Hx Musculoskeletal Trauma Psychiatric Medical History: Reports: Hx Depression, Hx Post Traumatic Stress Disorder Denies: Hx Bipolar Disorder Traumatic Medical History: Reports: Hx Fractures - Fractured ankle Past Surgical History: Reports: Hx Cholecystectomy, Hx Oral Surgery - wisdom tooth removal 07/2016, Hx Orthopedic Surgery - right ankle - Immunizations Immunizations up to date: Yes Hx Diphtheria, Pertussis, Tetanus Vaccination: Yes Vertical Provider Document - CONSTITUTIONAL Agree With Documented VS: Yes Notes: GENERAL: Alert, interacts well. No acute distress. HEAD: Normocephalic, atraumatic. EYES: Pupils equal, round, and reactive to light. Extraocular movements intact. ENT: Oral mucosa moist, tongue midline. NECK: Full range of motion. Supple. Trachea midline. LUNGS: Clear to auscultation bilaterally, no wheezes, rales, or rhonchi. No respiratory distress. HEART: Regular rate and rhythm. No murmur ABDOMEN: Soft, non-tender. Non-distended. Bowel sounds present in all 4 quadrants. EXTREMITIES: Moves all 4 extremities spontaneously. No edema, normal radial and dorsalis pedis pulses bilaterally. No cyanosis. BACK: no cervical, thoracic, lumbar midline tenderness. No saddle anesthesia, normal distal neurovascular exam. NEUROLOGICAL: Alert and oriented x3. Normal speech. cranial nerves II through XII grossly intact PSYCH: Normal affect, normal mood. SKIN: Warm, dry, normal turgor. No rashes or lesions noted. Breast exam: Jackerman Bere RN. No redness, swelling, warmth noted to bilateral breasts, no obvious discharge from bilateral nipples. - INFECTION CONTROL TRAVEL OUTSIDE OF THE [place] IN LAST 30 DAYS: No Course - Re-evaluation Re-evalutation: 12/17/18 21:25 Patient's physical exam reveals no signs of infection or inflammation of the right or left breast. There is no redness, swelling, discharge. Patient states she is unsure of how often she is pumping but she is trying to breast-feed. Discussed with her that she needs to pump whenever she feels as though her breasts are full. Also discussed use of Tylenol as needed. Patient voices understanding, stable for discharge. 12/17/18 21:31 Nurse brings to my attention that she attempted to locate the patient to give he r her discharge paperwork it appears patient has eloped. - Vital Signs Vital signs: Temp Pulse Resp BP Pulse Ox 98.1 F 71 20 134/87 H 97 12/17/18 19:58 12/17/18 19:58 12/17/18 19:58 12/17/18 19:58 12/17/18 19:58 Discharge - Discharge Clinical Impression: Fullness of breast Condition: Stable Disposition: HOME, SELF-CARE Additional Instructions: You have been seen and treated in the emergency department for right breast discomfort. Upon physical examination your right breast does not appear infected. Tylenol is safe to take while breast-feeding. Should you feel fullness or discomfort you should be pumping. You can also take Tylenol as needed every 4 hours. Please make sure you follow-up with your primary care provider or SPA MANAGER/ESTHETICIAN. Please return to the emergency room for any other concerning symptoms.
== END 2018-12-17 22:01 | disposition home or self-care (01) ==
LOC: ER 19:34
DX: N64.89 Other specified disorders of breast (principal); I10 Essential (primary) hypertension; Z90.49 Acquired absence of other specified parts of digestive tract
CPT/HCPCS: 99283

== ENCOUNTER 2018-12-24 14:47 | Emergency (ER) | payer OTHER ==
--- NOTE | 2018-12-24 16:05 | ER Document Report ---
ED Breast Problem - General Chief Complaint: Breast Problem Stated Complaint: BREAST TENDERNESS Time Seen by Provider: 12/24/18 15:43 Primary Care Provider: GLENN ROSS MD [Primary Care Provider] - Follow up as needed Mode of Arrival: Ambulatory Information source: Patient Notes: Patient is a 20-year-old female comes emergency room today complaining of breast pain. Patient gave on November 26 to a premature baby of 34 weeks. Baby is still in the NICU on [facility]. Patient states that she is pumping almost every hour and she has irritation around her nipples. She has been seen twice at [facility] and placed on Macrobid x2 and states that discomfort and pain is not getting any better. She also states that she has been 3 times in the past and never able to breast-feed because she had no milk now she has an over abundance of it. She states she is pumping every hour. She is attempted use Vaseline petroleum jelly is on the area to no avail the antibiotics do not seem to be helping it at either. She states her right nipple is worse than her left but they both her. She denies any other problems at this time. She does state that she wants to dry up relatively soon. TRAVEL OUTSIDE OF THE [place] IN LAST 30 DAYS: No - HPI Patient complains to provider of: Redness, Swelling, Tenderness Onset: Other - 2 weeks Onset/Duration: Gradual, Worse Quality of pain: Fullness, Throbbing Severity: Moderate Pain Level: 3 Context: Discharge description: None Associated Symptoms: None Similar symptoms previously: Yes Recently seen / treated by doctor: Yes - Related Data Allergies/Adverse Reactions: morphine [Morphine] Allergy (Severe, Verified 12/24/18 14:48) Difficulty breathing/itch shellfish derived Allergy (Severe, Verified 12/24/18 14:48) Anaphylaxis iodine [Iodine] Allergy (Intermediate, Verified 12/24/18 14:48) RASH latex [Latex] Allergy (Intermediate, Verified 12/24/18 14:48) RASH diphenhydramine [From Benadryl] Allergy (Verified 12/24/18 14:48) Past Medical History - General Information source: Patient - Social History Smoking Status: Never Smoker Cigarette use (# per day): No Chew tobacco use (# tins/day): No Smoking Education Provided: No Frequency of alcohol use: None Drug Abuse: None Lives with: Family Family History: Reviewed & Not Pertinent, CAD, COPD, CVA, DM, Hyperlipidemia, Hypertension Patient has suicidal ideation: No Patient has homicidal ideation: No - Past Medical History Cardiac Medical History: Reports: Hx Hypertension Denies: Hx Heart Attack Pulmonary Medical History: Reports: Hx Asthma - resolved Denies: Hx Bronchitis, Hx COPD, Hx Pneumonia Neurological Medical History: Reports: Hx Migraine. Denies: Hx Seizures Renal/ Medical History: Reports: Hx Pelvic Inflammatory Disease. Denies: Hx Peritoneal Dialysis Musculoskeletal Medical History: Denies Hx Arthritis, Reports Hx Musculoskeletal Trauma Psychiatric Medical History: Reports: Hx Depression, Hx Post Traumatic Stress Disorder Denies: Hx Bipolar Disorder Traumatic Medical History: Reports: Hx Fractures - Fractured ankle Past Surgical History: Reports: Hx Cholecystectomy, Hx Oral Surgery - wisdom tooth removal 07/2016, Hx Orthopedic Surgery - right ankle - Immunizations Immunizations up to date: Yes Hx Diphtheria, Pertussis, Tetanus Vaccination: Yes Review of Systems - Review of Systems Constitutional: No symptoms reported EENT: No symptoms reported Cardiovascular: No symptoms reported Respiratory: No symptoms reported Gastrointestinal: No symptoms reported Genitourinary: No symptoms reported Female Genitourinary: No symptoms reported, Other - Nipple tenderness Musculoskeletal: No symptoms reported Skin: No symptoms reported Hematologic/Lymphatic: No symptoms reported Neurological/Psychological: No symptoms reported -: Yes All other systems reviewed and negative Physical Exam - Vital signs Vitals: Temp Pulse Resp BP Pulse Ox 98.1 F 79 16 138/90 H 98 12/24/18 14:57 12/24/18 14:57 12/24/18 14:57 12/24/18 14:57 12/24/18 14:57 Interpretation: Hypertensive - Notes Notes: PHYSICAL EXAMINATION: GENERAL: Well-appearing, well-nourished and in no acute distress. HEAD: Atraumatic, normocephalic. LUNGS: Breath sounds clear to auscultation bilaterally and equal. No wheezes rales or rhonchi. HEART: Regular rate and rhythm without murmurs Female : deferred\examination of the breasts show patient has some very small appearing breast at this time. Right nipple appears to be somewhat erythematous around the nipple itself. Mild tenderness to palpation. No discharge noted from the nipple at this time. Left nipple appears to be much less involved mild erythema only around the nipple with only mild sensitivity or tenderness to pa lpation. Presentation is of a mild mastitis. NEUROLOGICAL: Normal speech, normal gait. Normal sensory, motor exams PSYCH: Normal mood, normal affect. SKIN: Warm, Dry\C description in female above Course - Re-evaluation Re-evalutation: 12/24/18 16:05 I did discuss case with she agrees to Keflex and it will be our a ntibiotic of choice nonstick. Also we can add ibuprofen to her regime for inflammation purposes. And she informed me to use cool cabbage leaves to be placed in her bra. And she can use some lanolin cream since she is not currently breast-feeding but only pumping at this time. I have given this information the patient she seemed relatively pleased to know that she could do all the above. - Vital Signs Vital signs: Temp Pulse Resp BP Pulse Ox 98.1 F 79 16 138/90 H 98 12/24/18 14:57 12/24/18 14:57 12/24/18 14:57 12/24/18 14:57 12/24/18 14:57 Discharge - Discharge Clinical Impression: Mastitis associated with childbirth, delivered, Fullness of breast Disposition: HOME, SELF-CARE Instructions: Mastitis (OM) Additional Instructions: As we discussed you can take ibuprofen 600 mg 3 times a day with food. This will help with the sensitivity and the inflammation around the area. Also stopped your Macrobid and we will do Keflex which she stated that you can take. And as we also talked about suggestions you can use little and cream around the nipple area but not on the nipple itself while pumping. And cannot use it when you do decide to breast-feed personally. Also you can use cool cabbage leaves placed in your bra will help with inflammation as well. Highly suggest you still follow-up with [facility] when they open up on Thursday for further intervention if necessary. He may return to ER if you have any concerns or problems. Prescriptions: Cephalexin Monohydrate [Keflex 500 mg Capsule] 500 mg PO Q6H 7 Days #28 capsule Ibuprofen [Ibu] 600 mg PO TID PRN 10 Days #30 tablet PRN Reason: Forms: Elevated Blood Pressure Referrals: GLENN ROSS MD [Primary Care Provider] - Follow up as needed
[2018-12-24 16:30] VITALS: BP 118/87
== END 2018-12-24 16:33 | disposition home or self-care (01) ==
LOC: ER 14:47
DX: O91.22 Nonpurulent mastitis associated with the puerperium (principal); Z90.49 Acquired absence of other specified parts of digestive tract; Z88.6 Allergy status to analgesic agent; Z91.040 Latex allergy status
CPT/HCPCS: 99283

== ENCOUNTER 2019-01-11 23:16 | Emergency (ER) | payer OTHER ==
[2019-01-11] MEDS ORDERED: ACETAMINOPHEN 325 MG TABLET PO ONE (23:41)
[2019-01-12 00:08] LABS: APPEARANCE,URINE CLEAR; BILIRUBIN,URINE NEGATIVE (NEGATIVE); COLOR,URINE YELLOW; GLUCOSE, URINE NEGATIVE (NEGATIVE); KETONES,URINE NEGATIVE (NEGATIVE); LEUKOCYTE ESTERASE,URINE NEGATIVE (NEGATIVE); NITRITE,URINE NEGATIVE (NEGATIVE); PROTEIN,URINE NEGATIVE (NEGATIVE); URINE SPECIFIC GRAVITY 1.016; UROBILINOGEN,URINE NEGATIVE mg/dL (<2.0)
[2019-01-12] MEDS ORDERED: AZITHROMYCIN 250 MG TABLET PO ONE (03:22)
[2019-01-12] MEDS ORDERED: DEXAMETHASONE 4 MG TABLET PO ONE (03:23)
--- NOTE | 2019-01-12 03:28 | ER Document Report ---
ED Fever - General Chief Complaint: Fever Stated Complaint: FEVER Time Seen by Provider: 01/12/19 02:52 Primary Care Provider: JAY JAY CHUA MD [Primary Care Provider] - Follow up as needed TRAVEL OUTSIDE OF THE [place] IN LAST 30 DAYS: No - HPI Notes: Patient is a 28-year-old female that presents to the emergency department for chief complaint of sore throat and left ear pain. Patient states that she started to have a sore throat and pain in her left ear and left jaw yesterday. The pain has increased today. She describes it as a scratchy sensation in the back of her throat. The pain is bilateral. She states she gets strep throat frequently and this feels the same. Patient also complaining of a pain in her right lower back which is intermittent and achy. She is concerned she might have urinary tract infection. She reports no urinary frequency or dysuria. Patient did not feel feverish at home but reports having a fever at presentation to the ED. She has not taken any medications at home for symptoms today. Past Medical History: Negative Past Surgical History: Cholecystectomy, right ankle tendon repair Social History: Denies drugs alcohol and tobacco Family History: Reviewed and noncontributory for presenting illness Allergies: Reviewed, see documented allergy list. REVIEW OF SYSTEMS: CONSTITUTIONAL : No fever No chills No diaphoresis No recent illness EENT: No vision changes No congestion sore throat Left ear pain CARDIOVASCULAR: No chest pain No palpitations RESPIRATORY: No shortness of breath No cough No difficulty breathing GASTROINTESTINAL: No abdominal pain No nausea No vomiting No diarrhea GENITOURINARY: No dysuria No hematuria No difficulty urinating MUSCULOSKELETAL: back pain No leg pain No arm pain SKIN: No rashes No lesions LYMPHATIC: No swollen, enlarged glands. NEUROLOGICAL: No lightheadedness No headache No weakness No paresthesias PSYCHIATRIC: No anxiety No depression PHYSICAL EXAMINATION: Vital signs reviewed, nursing noted reviewed. GENERAL: Well-appearing, well-nourished and in no acute distress. HEAD: Atraumatic, normocephalic. EYES: Eyes appear normal, extraocular movements intact, sclera anicteric, conjunctiva are normal. ENT: nares patent, oropharynx erythematous with tonsillar edema and no exudates, moist mucous membranes. Normal TM and external ear canals bilaterally. No mastoid tenderness bilaterally. NECK: Normal range of motion, supple anterior chain adenopathy bilaterally lymphadenopathy LUNGS: Breath sounds clear to auscultation bilaterally and equal. No wheezes rales or rhonchi. HEART: Regular rate and rhythm without murmurs ABDOMEN: Soft, nontender, normoactive bowel sounds. No rebound, guarding, or rigidity. No masses appreciated. Back: No midline thoracic or lumbar tenderness, normal range of motion, no bilateral paraspinal tenderness or CVA tenderness EXTREMITIES: Nontender, good range of motion, no pitting or edema. NEUROLOGICAL: No focal neurological deficits. Moves all extremities spontaneously Motor and sensory grossly intact on exam. PSYCH: Normal mood, normal affect. SKIN: Warm, Dry, normal turgor, no rashes or lesions noted on exposed skin - Related Data Allergies/Adverse Reactions: morphine [Morphine] Allergy (Severe, Verified 12/24/18 14:48) Difficulty breathing/itch shellfish derived Allergy (Severe, Verified 12/24/18 14:48) Anaphylaxis iodine [Iodine] Allergy (Intermediate, Verified 12/24/18 14:48) RASH latex [Latex] Allergy (Intermediate, Verified 12/24/18 14:48) RASH diphenhydramine [From Benadryl] Allergy (Verified 12/24/18 14:48) Past Medical History - Social History Smoking Status: Never Smoker Family History: Reviewed & Not Pertinent, CAD, COPD, CVA, DM, Hyperlipidemia, Hypertension Patient has suicidal ideation: No Patient has homicidal ideation: No - Past Medical History Cardiac Medical History: Reports: Hx Hypertension Denies: Hx Heart Attack Pulmonary Medical History: Reports: Hx Asthma - resolved Denies: Hx Bronchitis, Hx COPD, Hx Pneumonia Neurological Medical History: Reports: Hx Migraine. Denies: Hx Seizures Renal/ Medical History: Reports: Hx Kidney Stones, Hx Pelvic Inflammatory Disease. Denies: Hx Peritoneal Dialysis Musculoskeletal Medical History: Denies Hx Arthritis, Reports Hx Musculoskeletal Trauma Psychiatric Medical History: Reports: Hx Depression, Hx Post Traumatic Stress Disorder Denies: Hx Bipolar Disorder Traumatic Medical History: Reports: Hx Fractures - Fractured ankle Past Surgical History: Reports: Hx Cholecystectomy, Hx Oral Surgery - wisdom tooth removal 07/2016, Hx Orthopedic Surgery - right ankle - Immunizations Immunizations up to date: Yes Hx Diphtheria, Pertussis, Tetanus Vaccination: Yes Physical Exam - Vital signs Vitals: Temp Pulse Resp BP Pulse Ox 100.0 F 115 H 16 145/86 H 97 01/11/19 23:32 01/11/19 23:32 01/11/19 23:32 01/11/19 23:32 01/11/19 23:32 Course - Re-evaluation Re-evalutation: 01/12/19 03:27 Vitals reviewed. Nursing notes reviewed. Patient had a low-grade fever at presentation. She has symptoms consistent with strep pharyngitis and will be treated with antibiotics and Decadron. Patient's ear exam is normal with no signs of otitis media. Urinalysis negative for infection. She has no hematuria or CVA tenderness to suggest underlying ureterolithiasis. Patient was encouraged on following with primary care. Laboratory 01/12/19 00:00 Urine Color YELLOW Urine Appearance CLEAR Urine pH 6.0 Ur Specific Kimberly 1.016 Urine Protein NEGATIVE Urine Glucose (UA) NEGATIVE Urine Ketones NEGATIVE Urine Blood NEGATIVE Urine Nitrite NEGATIVE Urine Bilirubin NEGATIVE Urine Urobilinogen NEGATIVE Ur Leukocyte Esterase NEGATIVE Urine WBC (Auto) 2 Urine RBC (Auto) 1 Squamous Epi Cells Auto 1 Urine Mucus (Auto) RARE Urine Ascorbic Acid NEGATIVE - Vital Signs Vital signs: Temp Pulse Resp BP Pulse Ox 100.0 F 115 H 16 145/86 H 97 01/11/19 23:32 01/11/19 23:32 01/11/19 23:32 01/11/19 23:32 01/11/19 23:32 Discharge - Discharge Clinical Impression: Strep pharyngitis Condition: Stable Disposition: HOME, SELF-CARE Instructions: Strep Throat ([facility]) Additional Instructions: Please return to the emergency department if you have any worsening, or concern of your symptoms. Please return to the emergency department if you develop chest pain, difficulty breathing, severe abdominal pain, or ongoing vomiting. Please follow-up with your primary care physician in 2-3 days and any other recommended physicians. If prescribed, take all medications as directed. If you have any questions or concerns do not hesitate to return the emergency department for evaluation. Continue taking Tylenol and ibuprofen for fevers and pain Prescriptions: Azithromycin [Zithromax 250 mg Tablet] 250 mg PO DAILY #4 tablet Referrals: JAY JAY CHUA MD [Primary Care Provider] - Follow up in 3-5 days
[2019-01-12 03:32] VITALS: BP 122/77
== END 2019-01-12 03:40 | disposition home or self-care (01) ==
LOC: ER 23:16
DX: J02.0 Streptococcal pharyngitis (principal); R50.9 Fever, unspecified; I10 Essential (primary) hypertension; Z87.442 Personal history of urinary calculi; Z90.49 Acquired absence of other specified parts of digestive tract; Z88.6 Allergy status to analgesic agent; Z91.013 Allergy to seafood
CPT/HCPCS: 81001; 99283

== ENCOUNTER 2019-01-24 22:00 | Emergency (ER) | payer OTHER ==
[2019-01-24 23:45] LABS: APPEARANCE,URINE SLIGHTLY-CLOUDY; BILIRUBIN,URINE NEGATIVE (NEGATIVE); COLOR,URINE YELLOW; GLUCOSE, URINE NEGATIVE (NEGATIVE); KETONES,URINE NEGATIVE (NEGATIVE); LEUKOCYTE ESTERASE,URINE NEGATIVE (NEGATIVE); NITRITE,URINE NEGATIVE (NEGATIVE); PROTEIN,URINE 30 mg/dL (NEGATIVE); URINE SPECIFIC GRAVITY 1.023; UROBILINOGEN,URINE NEGATIVE mg/dL (<2.0)
[2019-01-25] MEDS ORDERED: METOCLOPRAMIDE HCL 10 MG TABLET PO ONE (00:13)
[2019-01-25] MEDS ORDERED: IBUPROFEN 800 MG TABLET PO ONE (00:13)
--- NOTE | 2019-01-25 00:19 | ER Document Report ---
ED General - General Chief Complaint: Headache Stated Complaint: FEVER, NAUSEA,HEADACHE, NECK PAIN Time Seen by Provider: 01/25/19 00:04 Primary Care Provider: JAY JAY CHUA MD [Primary Care Provider] - Follow up as needed Mode of Arrival: Ambulatory Information source: Patient TRAVEL OUTSIDE OF THE [place] IN LAST 30 DAYS: No - HPI Patient complains to provider of: Flulike symptoms, left breast soreness question mastitis, UTI Onset: Other - Flulike symptoms started this evening Onset/Duration: Sudden Quality of pain: Sharp Severity: Moderate Pain Level: 3 Associated symptoms: Chills, Fever, Headache, Nausea. denies: Diarrhea, Vomiting Exacerbated by: Denies Relieved by: Denies Similar symptoms previously: No Notes: 28-year-old female coming in today for flulike illness consisting of headache, neck ache, fever, fatigue, nausea. Symptoms started this evening after she got up from bed. 101 degree fever and mildly tachycardic. No vomiting or diarrhea. She also wants to get checked for UTI/pyelonephritis. Apparently she has an extensive history of pyelonephritis. Curiously enough, she is already on Bactrim DS from her primary care provider for this. Also has some discomfort in her left breast which she thinks may be mastitis. She is stopped breast-feeding her son but is concerned that perhaps she is got an infection. - Related Data Allergies/Adverse Reactions: morphine [Morphine] Allergy (Severe, Verified 12/24/18 14:48) Difficulty breathing/itch shellfish derived Allergy (Severe, Verified 12/24/18 14:48) Anaphylaxis iodine [Iodine] Allergy (Intermediate, Verified 12/24/18 14:48) RASH latex [Latex] Allergy (Intermediate, Verified 12/24/18 14:48) RASH diphenhydramine [From Benadryl] Allergy (Verified 12/24/18 14:48) Past Medical History - General Information source: Patient - Social History Smoking Status: Never Smoker Family History: Reviewed & Not Pertinent, CAD, COPD, CVA, DM, Hyperlipidemia, Hypertension - Past Medical History Cardiac Medical History: Reports: Hx Hypertension Denies: Hx Heart Attack Pulmonary Medical History: Reports: Hx Asthma - resolved Denies: Hx Bronchitis, Hx COPD, Hx Pneumonia Neurological Medical History: Reports: Hx Migraine. Denies: Hx Seizures Renal/ Medical History: Reports: Hx Kidney Stones, Hx Pelvic Inflammatory Disease. Denies: Hx Peritoneal Dialysis Musculoskeletal Medical History: Denies Hx Arthritis, Reports Hx Musculoskeletal Trauma Psychiatric Medical History: Reports: Hx Depression, Hx Post Traumatic Stress Disorder Denies: Hx Bipolar Disorder Traumatic Medical History: Reports: Hx Fractures - Fractured ankle Past Surgical History: Reports: Hx Cholecystectomy, Hx Oral Surgery - wisdom tooth removal 07/2016, Hx Orthopedic Surgery - right ankle - Immunizations Immunizations up to date: Yes Hx Diphtheria, Pertussis, Tetanus Vaccination: Yes Review of Systems - Review of Systems Notes: Constitutional: Positive for fevers and chills positive for myalgia. Positive for fatigue EENT: No eye redness. No eye pain. No ear pain. No sore throat. Cardiovascular: No chest pain. No palpitations. Respiratory: No cough. No shortness of breath. No respiratory distress. Gastrointestinal: No abdominal pain. Positive for nausea. Negative for vomiting and diarrhea Genitourinary: Atraumatic. No lesions. No pain. No discharge. Musculoskeletal: Atraumatic. No swelling. No deformities. Skin: No rash or lesions. Lymphatic: No swollen lymph nodes. Neurologic: Positive for headache Psychiatric: No suicidal or homicidal ideation. Physical Exam - Vital signs Vitals: Temp Pulse Resp BP Pulse Ox 101.3 F H 116 H 16 148/98 H 98 01/24/19 22:15 01/24/19 22:15 01/24/19 22:15 01/24/19 22:15 01/24/19 22:15 - Notes Notes: General: Well-developed, well-nourished. In no acute distress. Non-toxic appearing. Cardiac: Well-perfused. Regular rate and rhythm. No murmurs, rubs, or gallops. Pulmonary: No respiratory distress. No cyanosis. Bilateral lung fiels are clear to auscultation. Abdominal: Non-distended. Non-rigid. Bowels sounds are present in all four quadrants. No guarding or rebound. HEENT: Head is atraumatic. Conjunctivae not reddened. No tearing. PERRL. EOMI. Orbits atraumatic. No periorbital swelling or erythema. Oropharynx is without erythema, swelling, or exudates. Neck: Supple. No adenopathy. No meningismus. Dermatologic: Warm with good turgor. No rash. Atraumatic. Chest: Elham PHILLIPS production reproduction manager me during the breast exam. Left breast examined. No redness no swelling there is still a small amount of occurring. There is no purulent drainage. There are no nodules present. Musculoskeletal: Moves all extremities well. No range of motion deficits. no muscular or joint tenderness. No paraspinal muscle tenderness. no midline spinal tenderness or step-off. Genitourinary: Examination deferred Neurologic: No gross neurologic deficits. Psychiatric: Normal mood. Course - Re-evaluation Re-evalutation: 01/25/19 00:18 Patient is currently on Bactrim pending urine culture. I think this is appropriate. My urinalysis does not reveal any such infection. I will let her follow-up with her own doctor for that. They also have her taking Diflucan for what this is a yeast infection on her breast. Again I do not see any evidence of a yeast infection, but I will leave that up to her doctor to settle. The symptoms that she presents with tonight are consistent with a viral syndrome. She does not have any features of meningitis I will give her prescription for some naproxen sodium to help with the fevers and body aches and I will also give her a prescription for Reglan for the nausea. Encouraged her to get lots of rest and drink lots of clear fluids. Follow-up routinely with her primary care doctor for the viral syndrome. - Vital Signs Vital signs: Temp Pulse Resp BP Pulse Ox 101.1 F H 116 H 16 148/98 H 98 01/24/19 23:24 01/24/19 22:15 01/24/19 22:15 01/24/19 22:15 01/24/19 22:15 - Laboratory Laboratory results interpreted by me: 01/24/19 23:21 Urine Protein 30 H Discharge - Discharge Clinical Impression: Viral syndrome, Breast pain, left, History of UTI Condition: Good Disposition: HOME, SELF-CARE Instructions: Acetaminophen, Antinausea Medication ([facility]), Fever ([facility]), Headache ([facility]), Reglan ([facility]), Viral Syndrome ([facility]) Additional Instructions: Treat the viral symptoms with Reglan for nausea. Also naproxen prescribed to you can be taken every 12 hours for fevers and body aches. If you feel you need additional medication for fever or body aches you may also take Tylenol intermittently as well. Get plenty of rest. Drink lots of fluids and be very diligent about washing her hands to prevent passage of this disease. Prescriptions: Metoclopramide HCl [Reglan 10 mg Tablet] 1 tab PO Q6HP PRN #12 tablet PRN Reason: Naproxen 500 mg PO BID 7 Days #14 tablet Referrals: JAY JAY CHUA MD [Primary Care Provider] - Follow up as needed
[2019-01-25 00:56] VITALS: BP 125/77
== END 2019-01-25 00:56 | disposition home or self-care (01) ==
LOC: ER 22:00
DX: B34.9 Viral infection, unspecified (principal); N64.4 Mastodynia; R51 Headache; R11.0 Nausea; R50.9 Fever, unspecified; M54.2 Cervicalgia; R53.83 Other fatigue; R00.0 Tachycardia, unspecified; I10 Essential (primary) hypertension; J45.909 Unspecified asthma, uncomplicated
CPT/HCPCS: 81001; 99283

== ENCOUNTER 2019-02-03 03:47 | Emergency (ER) | payer OTHER ==
[2019-02-03 03:58] VITALS: BP 143/94
== END 2019-02-03 05:52 | disposition left against medical advice (07) ==
LOC: ER 03:47
DX: R10.9 Unspecified abdominal pain (principal); R11.0 Nausea; Z53.21 Procedure and treatment not carried out due to patient leaving prior to being seen by health care provider

== ENCOUNTER 2019-05-06 17:59 | Emergency (ER) | payer OTHER ==
--- NOTE | 2019-05-06 18:17 | ER Document Report ---
HPI - HPI Patient complains to provider of: sore throat Time Seen by Provider: 05/06/19 18:10 Onset: Last week Onset/Duration: Persistent Quality of pain: Burning Pain Level: Denies Context: 28-year-old female presents emergency department with complaints of congestion sore throat for a week. Reports kids had strep throat last week. Denies fever vomiting diarrhea. Reports when she was young she had strep throat all the time. Reports it hurts to swallow. Associated Symptoms: Sore throat Exacerbated by: Denies Relieved by: Denies Similar symptoms previously: No Recently seen / treated by doctor: No - REPRODUCTIVE Reproductive: DENIES: : Past Medical History - General Information source: Patient Last Menstrual Period: breast feeding, pp 4 months - Social History Smoking Status: Unknown if Ever Smoked Cigarette use (# per day): No Frequency of alcohol use: None Drug Abuse: None Lives with: Family Family History: Reviewed & Not Pertinent, CAD, COPD, CVA, DM, Hyperlipidemia, Hypertension - Past Medical History Cardiac Medical History: Reports: Hx Hypertension Denies: Hx Heart Attack Pulmonary Medical History: Reports: Hx Asthma - resolved Denies: Hx Bronchitis, Hx COPD, Hx Pneumonia Neurological Medical History: Reports: Hx Migraine. Denies: Hx Seizures Renal/ Medical History: Reports: Hx Kidney Stones, Hx Pelvic Inflammatory Disease. Denies: Hx Peritoneal Dialysis Musculoskeletal Medical History: Denies Hx Arthritis, Reports Hx Musculoskeletal Trauma Psychiatric Medical History: Reports: Hx Bipolar Disorder, Hx Depression, Hx Post Traumatic Stress Disorder Traumatic Medical History: Reports: Hx Fractures - Fractured ankle Past Surgical History: Reports: Hx Cholecystectomy, Hx Oral Surgery - wisdom tooth removal 07/2016, Hx Orthopedic Surgery - right ankle - Immunizations Immunizations up to date: Yes Hx Diphtheria, Pertussis, Tetanus Vaccination: Yes Vertical Provider Document - CONSTITUTIONAL Agree With Documented VS: Yes Exam Limitations: No Limitations General Appearance: WD/WN, No Apparent Distress - INFECTION CONTROL TRAVEL OUTSIDE OF THE [place] IN LAST 30 DAYS: No - HEENT HEENT: Atraumatic, Normocephalic, Pharyngeal Erythema - Good airway clear voice no trismus. negative: Conjuctival Injection, Pharyngeal Exudate, Tympanic Membrane Red, Tympanic Membrane Bulging - NECK Neck: Normal Inspection, Supple. negative: Lymphadenopathy-Left, Lymphadenopathy-Right - RESPIRATORY Respiratory: Breath Sounds Normal, No Respiratory Distress - CARDIOVASCULAR Cardiovascular: Regular Rate, Regular Rhythm - GI/ABDOMEN Gastrointestinal: Abdomen Soft, Abdomen Non-Tender - MUSCULOSKELETAL/EXTREMETIES Musculoskeletal/Extremeties: VERO NICHOLS - NEURO Level of Consciousness: Awake, Alert, Appropriate Motor/Sensory: No Motor Deficit - DERM Integumentary: Warm, Dry, No Rash Course - Re-evaluation Re-evalutation: 05/06/19 19:38 Patient presents with complaints of sore throat. Strep test negative. Good airway no obvious signs of strep. Patient was instructed on throat culture pending. Instructed to drink plenty of fluids do not share drinks. She verbalized understanding to all instructions. Dictation of this chart was performed using voice recognition software; therefore, there may be some unintended grammatical errors. - Vital Signs Vital signs: Temp Pulse Resp BP Pulse Ox 99.4 F 99 18 142/76 H 99 05/06/19 18:01 05/06/19 18:01 05/06/19 18:01 05/06/19 18:01 05/06/19 18:01 Discharge - Discharge Clinical Impression: Sore throat Condition: Stable Disposition: HOME, SELF-CARE Instructions: Sore Throat ([facility]) Additional Instructions: *You have been evaluated for a sore throat, pharyngitis *Your strep test was negative. A throat culture is pending. You will be contacted in 2 to 3 days if your culture is positive and you need antibiotics *Warm salt water gargles and throat lozenges for comfort *Do not let anyone drink/eat after you *Good hand washing *Follow-up with a primary care provider within one week for recheck *Return to ED for worsening condition change, needs Monitor your blood pressure. Your blood pressure was elevated today. This may be because you were anxious, in pain or because you need medication. It is important to follow up with your primary care provider for full evaluation. Forms: Elevated Blood Pressure Referrals: JAY JAY CHUA MD [NO LOCAL MD] - Follow up in 1 week
[2019-05-06 19:24] VITALS: BP 121/70
== END 2019-05-06 19:20 | disposition home or self-care (01) ==
LOC: ER 17:59
DX: J02.9 Acute pharyngitis, unspecified (principal); R09.81 Nasal congestion; R13.10 Dysphagia, unspecified; I10 Essential (primary) hypertension; J45.909 Unspecified asthma, uncomplicated
CPT/HCPCS: 87070; 87880; 99283

== ENCOUNTER 2019-05-07 01:39 | Emergency (ER) | payer OTHER ==
[2019-05-07 01:49] VITALS: BP 130/69
== END 2019-05-07 04:45 | disposition left against medical advice (07) ==
LOC: ER 01:39
DX: Z53.21 Procedure and treatment not carried out due to patient leaving prior to being seen by health care provider (principal)

== ENCOUNTER 2019-07-16 15:22 | Emergency (ER) | payer OTHER ==
[2019-07-16 15:30] VITALS: BP 131/76
--- NOTE | 2019-07-16 15:39 | ER Document Report ---
HPI - HPI Time Seen by Provider: 07/16/19 15:38 Pain Level: 2 Notes: 29-year-old female patient presenting with chief complaint of left foot pain. Patient reports pain since yesterday when she shut her foot in a door. She ambulated into the emergency department and has not taken any medications for her symptoms. - REPRODUCTIVE Reproductive: DENIES: : Past Medical History - General Information source: Patient - Social History Smoking Status: Never Smoker Chew tobacco use (# tins/day): No Frequency of alcohol use: None Drug Abuse: None Family History: Reviewed & Not Pertinent, CAD, COPD, CVA, DM, Hyperlipidemia, Hypertension Patient has suicidal ideation: No Patient has homicidal ideation: No - Past Medical History Cardiac Medical History: Reports: Hx Hypertension Denies: Hx Heart Attack Pulmonary Medical History: Reports: Hx Asthma - resolved Denies: Hx Bronchitis, Hx COPD, Hx Pneumonia Neurological Medical History: Reports: Hx Migraine. Denies: Hx Seizures Renal/ Medical History: Reports: Hx Kidney Stones, Hx Pelvic Inflammatory Disease. Denies: Hx Peritoneal Dialysis Musculoskeletal Medical History: Denies Hx Arthritis, Reports Hx Musculoskeletal Trauma Psychiatric Medical History: Reports: Hx Bipolar Disorder, Hx Depression, Hx Post Traumatic Stress Disorder Traumatic Medical History: Reports: Hx Fractures - Fractured ankle Past Surgical History: Reports: Hx Cholecystectomy, Hx Oral Surgery - wisdom tooth removal 07/2016, Hx Orthopedic Surgery - right ankle - Immunizations Immunizations up to date: Yes Hx Diphtheria, Pertussis, Tetanus Vaccination: Yes Vertical Provider Document - CONSTITUTIONAL Notes: PHYSICAL EXAMINATION: GENERAL: Well-appearing, well-nourished and in no acute distress. HEAD: Atraumatic, normocephalic. EYES: Pupils equal round extraocular movements intact, conjunctiva are normal. ENT: Nares patent NECK: Normal range of motion LUNGS: No respiratory distress Musculoskeletal: Normal range of motion, mild swelling noted over the distal dorsal surface of the left foot, strong dorsalis pedis pulse, cap refill less than 3 seconds. No obvious ecchymosis or erythema. NEUROLOGICAL: Normal speech, normal gait. PSYCH: Normal mood, normal affect. SKIN: Warm, Dry, normal turgor, no rashes or lesions noted. - INFECTION CONTROL TRAVEL OUTSIDE OF THE [place] IN LAST 30 DAYS: No Course - Re-evaluation Re-evalutation: X-ray negative for any acute findings. Patient will be discharged home in stable condition. - Vital Signs Vital signs: Temp Pulse Resp BP Pulse Ox 97.9 F 88 18 131/76 H 99 07/16/19 15:29 07/16/19 15:29 07/16/19 15:29 07/16/19 15:29 07/16/19 15:29 Procedures - Immobilization Left foot Pre-Proc Neuro Vasc Exam: Normal Immobilizer type: Ion wrap, Crutches Performed by: PCT Post-Proc Neuro Vasc Exam: Normal Discharge - Discharge Clinical Impression: Foot contusion Qualifiers: Encounter type: initial encounter Laterality: unspecified laterality Qualified Code(s): S90.30XA - Contusion of unspecified foot, initial encounter Condition: Stable Disposition: HOME, SELF-CARE Additional Instructions: Contusion Your injury has resulted in a contusion -- a crushing of the deep tissues. No injury to important structures was detected during the physician's exam. Contusions vary in the amount of pain they cause, and in the length of time required for healing. Typically, the area will become bruised, and will remain painful to touch for two or three weeks. However, most patients are back to working and playing within a few days. After the initial period of rest and cold-packs, your symptoms (together with the doctor's recommendations) will determine how rapidly you can get back to full activity. Usually this means "do what feels okay, but don't do things that hurt." If re-examination was recommended, it's important to follow up as instructed. Call the doctor or return any time if pain increases, if swelling becomes severe, if you develop numbness or weakness in an injured extremity, or if any other alarming symptoms occur. Ice & Elevation Apply ice packs frequently against the painful area. Many different schedules are recommended, such as "20 minutes on, 20 minutes off" or "one hour ice, two hours rest." If you need to work, you may need to go longer between ice treatments. You should plan to have the area ice packed AT LEAST one-fourth of the time. The ice should be applied over the wrap, tape, or splint, or over a layer of cloth -- not directly against the skin. Some ice bags have a built-in cloth and can be put directly on the skin. Your injured part should be elevated as much as possible over the next 48 hours. Try to keep the injury above the level of the heart. Avoid use of the injured area. Elevation and rest will decrease the swelling. Ibuprofen Ibuprofen is an excellent, safe drug for pain control. In addition, it has potent antiinflammatory effects which are beneficial, especially in the treatment of injuries, arthritis, or tendonitis. It's best to take ibuprofen with food. Persons with ulcer disease or allergy to aspirin should notify their physician of this before taking ibuprofen. Take the medication exactly as prescribed. Don't take additional doses unless instructed to do so by your doctor. If you develop wheezing, shortness of breath, hives, faintness, stomach pain, vomiting, or dark black stools, return for re-evaluation at once. The x-rays were negative for any fracture or dislocation. Please take ibuprofen [id number] as directed to help with pain and inflammation.
--- NOTE | 2019-07-16 16:11 | RADIOLOGY REPORT (SQ) ---
EXAM DESCRIPTION: FOOT LEFT COMPLETE COMPLETED DATE/TIME: 07/16/2019 4:02 pm REASON FOR STUDY: shut in car door COMPARISON: None. NUMBER OF VIEWS: Three views. TECHNIQUE: AP, lateral and oblique radiographic images acquired of the left foot. LIMITATIONS: None. FINDINGS: MINERALIZATION: Normal. BONES: No acute fracture or dislocation. No worrisome bone lesions. JOINTS: No effusions. SOFT TISSUES: No soft tissue swelling. No foreign body. OTHER: No other significant finding. IMPRESSION: NEGATIVE STUDY OF THE LEFT FOOT. NO RADIOGRAPHIC EVIDENCE OF ACUTE INJURY. TECHNICAL DOCUMENTATION: JOB ID: [id number] [employer]- All Rights Reserved Reading location - IP/workstation name: [email or web address]
== END 2019-07-16 17:03 | disposition home or self-care (01) ==
LOC: ER 15:22
DX: S90.30XA Contusion of unspecified foot, initial encounter (principal); W23.0XXA Caught, crushed, jammed, or pinched between moving objects, initial encounter; I10 Essential (primary) hypertension
CPT/HCPCS: 99283

== ENCOUNTER 2019-07-21 17:15 | Emergency (ER) | payer OTHER ==
[2019-07-21] MEDS ORDERED: SULFAMETHOXAZOLE/TRIMETHOPRIM 800-160 MG TABLET PO ONE (18:19)
[2019-07-21] MEDS ORDERED: ACETAMINOPHEN 325 MG TABLET PO ONE (18:19)
[2019-07-21] MEDS ORDERED: CEPHALEXIN 500 MG CAPSULE PO ONE (18:19)
--- NOTE | 2019-07-21 18:28 | ER Document Report ---
ED Medical Screen (RME) - General Chief Complaint: Abscess Stated Complaint: ABSCESS/RIGHT UPPER THIGH Time Seen by Provider: 07/21/19 18:16 Notes: Patient is a 29-year-old female who presents to the emergency department with a chief complaint of a possible abscess to her right proximal thigh. Patient states that she has had body aches and chills. Denies any fever. Patient is requesting Tylenol to help with her pain. Patient states that she tried popping it with a needle this morning, but did not have anything come out of it. Patient has a history of MRSA in the past. Denies any IV drug abuse. Exam: Erythematous area noted to right proximal thigh. I have greeted and performed a rapid initial assessment of this patient. A comprehensive ED assessment and evaluation of the patient, analysis of test results and completion of medical decision making process will be conducted by an additional ED providers. TRAVEL OUTSIDE OF THE [place] IN LAST 30 DAYS: No - Related Data Allergies/Adverse Reactions: morphine [Morphine] Allergy (Severe, Verified 07/16/19 15:35) Difficulty breathing/itch shellfish derived Allergy (Severe, Verified 07/16/19 15:35) Anaphylaxis iodine [Iodine] Allergy (Intermediate, Verified 07/16/19 15:35) RASH latex [Latex] Allergy (Intermediate, Verified 07/16/19 15:35) RASH diphenhydramine [From Benadryl] Allergy (Verified 07/16/19 15:35) Past Medical History - Social History Family history: Reviewed & Not Pertinent, Hypertension, Other - copd - Past Medical History Cardiac Medical History: Reports: Hx Hypertension Denies: Hx Heart Attack Pulmonary Medical History: Reports: Hx Asthma - resolved Denies: Hx Bronchitis, Hx COPD, Hx Pneumonia Neurological Medical History: Reports: Hx Migraine. Denies: Hx Seizures Renal/ Medical History: Reports: Hx Kidney Stones, Hx Pelvic Inflammatory Disease. Denies: Hx Peritoneal Dialysis Musculoskeltal Medical History: Denies Hx Arthritis, Reports Hx Musculoskeletal Trauma Psychiatric Medical History: Reports: Hx Bipolar Disorder, Hx Depression, Hx Post Traumatic Stress Disorder Traumatic Medical History: Reports: Hx Fractures - Fractured ankle Past Surgical History: Reports: Hx Cholecystectomy, Hx Oral Surgery - wisdom tooth removal 07/2016, Hx Orthopedic Surgery - right ankle - Immunizations Immunizations up to date: Yes Hx Diphtheria, Pertussis, Tetanus Vaccination: Yes Physical Exam - Vital signs Vitals: Temp Pulse Resp BP Pulse Ox 98.9 F 95 18 149/86 H 98 07/21/19 17:22 07/21/19 17:22 07/21/19 17:22 07/21/19 17:22 07/21/19 17:22 Course - Vital Signs Vital signs: Temp Pulse Resp BP Pulse Ox 98.9 F 95 18 149/86 H 98 07/21/19 17:22 07/21/19 17:22 07/21/19 17:22 07/21/19 17:22 07/21/19 17:22
[2019-07-21 19:12] LABS: ABSOLUTE BASOPHILS # (AUTO) 0.1 10^3/uL (0.0-0.2); ABSOLUTE EOSINOPHILS # (AUTO) 0.2 10^3/uL (0.0-0.6); ABSOLUTE LYMPHOCYTES (AUTO) 2.7 10^3/uL (0.5-4.7); ABSOLUTE NEUT (AUTO) 14.5 10^3/uL (1.7-8.2); BASOPHILS % (AUTO) 0.5 % (0-2); EOSINOPHILS % (AUTO) 1.1 % (0-6); HEMATOCRIT 43.5 % (36.0-47.0); HEMOGLOBIN 14.9 g/dL (12.0-15.5); LYMPHOCYTES % (AUTO) 14.4 % (13-45); MEAN CORPUSCULAR HEMOGLOBIN 29.7 pg (27.0-33.4); MEAN CORPUSCULAR HGB CONC 34.2 g/dL (32.0-36.0); MEAN CORPUSCULAR VOLUME 87 fl (80-97); MONOCYTES % (AUTO) 5.3 % (3-13); PLATELET COUNT 421 10^3/uL (150-450); RED BLOOD COUNT 5.02 10^6/uL (3.72-5.28); SEGMENTED NEUTROPHILS % (AUTO) 78.7 % (42-78); TOTAL CELLS COUNTED % (AUTO) 100 %; WHITE BLOOD COUNT 18.4 10^3/uL (4.0-10.5)
[2019-07-21] MEDS ORDERED: LIDOCAINE 1%/EPINEPHRINE INJ 20 ML VIAL INJ ONE (19:43)
--- NOTE | 2019-07-21 21:20 | ER Document Report ---
HPI - HPI Time Seen by Provider: 07/21/19 18:16 Pain Level: 4 - CONSTITUTIONAL Constitutional: DENIES: Fever, Chills - EENT EENT: DENIES: Sore Throat, Ear Pain, Eye problems - NEURO Neurology: DENIES: Headache, Weakness, Vision blurred, Dizzinesss / Vertigo - CARDIOVASCULAR Cardiovascular: DENIES: Chest pain - RESPIRATORY Respiratory: DENIES: Trouble Breathing, Coughing - GASTROINTESTINAL Gastrointestinal: REPORTS: Abdominal Pain. DENIES: Black / Bloody Stools - URINARY Urinary: DENIES: Dysuria, Urgency, Frequency - REPRODUCTIVE Reproductive: DENIES: : - MUSCULOSKELETAL Musculoskeletal: DENIES: Extremity pain Past Medical History - Social History Smoking Status: Never Smoker Chew tobacco use (# tins/day): No Frequency of alcohol use: None Drug Abuse: None Family History: Reviewed & Not Pertinent, CAD, COPD, CVA, DM, Hyperlipidemia, Hypertension Patient has suicidal ideation: No Patient has homicidal ideation: No - Past Medical History Cardiac Medical History: Reports: Hx Hypertension Denies: Hx Heart Attack Pulmonary Medical History: Reports: Hx Asthma - resolved Denies: Hx Bronchitis, Hx COPD, Hx Pneumonia Neurological Medical History: Reports: Hx Migraine. Denies: Hx Seizures Renal/ Medical History: Reports: Hx Kidney Stones, Hx Pelvic Inflammatory Disease. Denies: Hx Peritoneal Dialysis Musculoskeletal Medical History: Denies Hx Arthritis, Reports Hx Musculoskeletal Trauma Psychiatric Medical History: Reports: Hx Bipolar Disorder, Hx Depression, Hx Post Traumatic Stress Disorder Traumatic Medical History: Reports: Hx Fractures - Fractured ankle Past Surgical History: Reports: Hx Cholecystectomy, Hx Oral Surgery - wisdom tooth removal 07/2016, Hx Orthopedic Surgery - right ankle - Immunizations Immunizations up to date: Yes Hx Diphtheria, Pertussis, Tetanus Vaccination: Yes Vertical Provider Document - CONSTITUTIONAL Agree With Documented VS: Yes Exam Limitations: No Limitations General Appearance: No Apparent Distress - INFECTION CONTROL TRAVEL OUTSIDE OF THE [place] IN LAST 30 DAYS: No - HEENT HEENT: Atraumatic, Normocephalic - NECK Neck: Normal Inspection - RESPIRATORY Respiratory: No Respiratory Distress - CARDIOVASCULAR Cardiovascular: Regular Rate Pulses: Normal: Radial - MUSCULOSKELETAL/EXTREMETIES Musculoskeletal/Extremeties: FROM, Tender - Right anterior medial proximal thigh - NEURO Level of Consciousness: Awake, Alert, Appropriate Motor/Sensory: No Motor Deficit, No Sensory Deficit - DERM Integumentary: Warm, Dry, Abscess - with surrounding cellulitis Adult Front & Back Diagram: 1 - Abcess Course - Re-evaluation Re-evalutation: 07/21/19 Differential diagnosis includes but normal limited to: abscess, dermoid cyst, sebaceous cyst, furnucle, or others. Based on patient's physical exam and history, this is an abscess. It was drained in the ER. There is surrounding cellulitis. I do not believe the patient has underlying necrotizing fasciitis. Patient has history of MRSA. Based on patient's physical exam and these factors, they will be treated with antibiotics. Follow-up precautions were given. Verbal discharge instructions were given to the patient. They verbalized understanding. They are stable for discharge. - Vital Signs Vital signs: Temp Pulse Resp BP Pulse Ox 98.9 F 95 18 149/86 H 98 07/21/19 21:14 07/21/19 21:14 07/21/19 21:14 07/21/19 21:14 07/21/19 21:14 - Laboratory Result Diagrams: 07/21/19 19:00 Laboratory results interpreted by me: 07/21/19 19:00 WBC 18.4 H Absolute Neuts (auto) 14.5 H Seg Neutrophils % 78.7 H Procedures - Incision and Drainage Left Proximal Thigh Type: Simple, Single Anesthetic type: 1% Lidocaine w/epi mL's of anesthetic: 10 Blade size: 11 Incision Method: Incision made by scalpel Amount/type of drainage: 3 mls; yellow purulent with scant blood Discharge - Discharge Clinical Impression: Abscess Cellulitis Qualifiers: Site of cellulitis: extremity Site of cellulitis of extremity: lower extremity Laterality: right Qualified Code(s): L03.115 - Cellulitis of right lower limb Condition: Stable Disposition: HOME, SELF-CARE Instructions: Abscess ([facility]), Post Incision and Drainage Additional Instructions: You were seen for an abscess that required drainage. Please clean this area with soap and water twice daily and apply a topical antibiotic. Dress the area after each cleaning. Please return if you develop fever, vomiting, the pain at the site worsens, you notice spreading redness from the area, or you have any other symptoms that are concerning to you. The rash is likely due to infection of your skin. You need to take the antibiotics as prescribed. Do not stop even if the rash goes away until you have completed all the antibiotics. You should also return if you develop fevers with temperature greater than 101, persistent vomiting, worsening pain, or have any other symptoms that are concerning to you. You are also being sent home with [place], medication to help with pain. Please only take 1 tablet as needed every 4-6 hours for extreme pain. You can continue to take ibuprofen 600 mg and acetaminophen 650 mg every 6 hours for your pain. Prescriptions: Clindamycin HCl [Cleocin 150 mg Capsule] 300 mg PO Q6 7 Days #56 capsule Referrals: [facility] [Provider Group] - Follow up in 3-5 days
[2019-07-21] MEDS ORDERED: HYDROCODONE/ACETAMINOPHEN 5-325 MG (6 TAB/ER DISP) PO PRN (21:21)
[2019-07-21 22:18] VITALS: BP 115/67
== END 2019-07-21 21:40 | disposition home or self-care (01) ==
LOC: ER 17:15
DX: L02.415 Cutaneous abscess of right lower limb (principal); L03.115 Cellulitis of right lower limb; I10 Essential (primary) hypertension
CPT/HCPCS: 99283; 36415; 85025; 10060; J3490

== ENCOUNTER 2019-07-23 12:05 | Emergency (ER) | payer OTHER ==
[2019-07-23 12:27] VITALS: BP 125/77
--- NOTE | 2019-07-23 12:39 | ER Document Report ---
HPI - HPI Time Seen by Provider: 07/23/19 12:24 Pain Level: 4 Context: Patient is a 29-year-old female with a history of abscesses and MRSA who presents to the emergency department for a wound recheck. Patient reports she has been taking her clindamycin as prescribed but reports increased pain and swelling to the right upper thigh. Patient reports she did have to have a small abscess cut and drained 2 days ago and was told to return if he got worse. Patient reports it does continue to drain a small amount but is still very tender and feels hard. Patient reports chills but denies fever. - REPRODUCTIVE Reproductive: DENIES: : Past Medical History - General Information source: Patient - Social History Smoking Status: Never Smoker Chew tobacco use (# tins/day): No Frequency of alcohol use: None Drug Abuse: None Lives with: Family Family History: Reviewed & Not Pertinent, CAD, COPD, CVA, DM, Hyperlipidemia, Hypertension Patient has suicidal ideation: No Patient has homicidal ideation: No - Past Medical History Cardiac Medical History: Reports: Hx Hypertension Denies: Hx Heart Attack Pulmonary Medical History: Reports: Hx Asthma - resolved Denies: Hx Bronchitis, Hx COPD, Hx Pneumonia EENT Medical History: Reports: None Neurological Medical History: Reports: Hx Migraine. Denies: Hx Seizures Endocrine Medical History: Reports: None Renal/ Medical History: Reports: Hx Kidney Stones, Hx Pelvic Inflammatory Disease. Denies: Hx Peritoneal Dialysis Malignancy Medical History: Reports: None GI Medical History: Reports: None Musculoskeletal Medical History: Denies Hx Arthritis, Reports Hx Musculoskeletal Trauma Skin Medical History: Reports None Psychiatric Medical History: Reports: Hx Bipolar Disorder, Hx Depression, Hx Post Traumatic Stress Disorder Traumatic Medical History: Reports: Hx Fractures - Fractured ankle Infectious Medical History: Reports: None Past Surgical History: Reports: Hx Cholecystectomy, Hx Oral Surgery - wisdom tooth removal 07/2016, Hx Orthopedic Surgery - right ankle - Immunizations Immunizations up to date: Yes Hx Diphtheria, Pertussis, Tetanus Vaccination: Yes Vertical Provider Document - CONSTITUTIONAL Agree With Documented VS: Yes Exam Limitations: No Limitations General Appearance: No Apparent Distress - INFECTION CONTROL TRAVEL OUTSIDE OF THE [place] IN LAST 30 DAYS: No - HEENT HEENT: Atraumatic, Normal ENT Exam, Normocephalic, PERRLA - NECK Neck: Normal Inspection - RESPIRATORY Respiratory: Breath Sounds Normal, No Respiratory Distress - CARDIOVASCULAR Cardiovascular: Regular Rate, Regular Rhythm - GI/ABDOMEN Gastrointestinal: Abdomen Soft, Abdomen Non-Tender, Normal Bowel Sounds - REPRODUCTIVE Female Genitalia: Normal Inspection - MUSCULOSKELETAL/EXTREMETIES Musculoskeletal/Extremeties: FROM - NEURO Level of Consciousness: Awake, Alert, Appropriate - DERM Integumentary: Abscess Adult Front & Back Diagram: 1 - [id number] area of erythema that is firm to touch. There is a semi-closed incision area in the middle of the abscess that is not currently draining. Small amount of surrounding cellulitis noted. This does not extend up into the groin. Course - Re-evaluation Re-evalutation: 07/23/19 12:38 Patient require an incision and drainage. I did inform the patient that a larger cut does need to be made so the wound can continue to efficiently drain. Patient does have a surrounding cellulitis. Patient instructed to continue taking her clindamycin, using warm compresses and the pain medication that was provided to her. 07/23/19 12:55 The incision that was made 2 days ago had semi-closed. I did inject lidocaine per the procedure documentation and made the incision larger. This is a 1 cm incision. I did investigate the wound to see if there is any inoculations which there was not. I did not have any purulent drainage come out of the wound. I did inform the patient that her pain is likely due to the surrounding cellulitis which is a skin infection. Patient to continue taking her oral antibiotics. Patient also take ibuprofen. Patient reports she is only been taking 1 of her [place]. I did inform her that this is a narcotic and to take this for severe pain. Patient verbalizes understanding. I did give the patient paper tape as the tape that she had placed on herself at home seem to be extremely irritating to her skin. - Vital Signs Vital signs: Temp Pulse Resp BP Pulse Ox 98.5 F 84 16 125/77 99 07/23/19 12:24 07/23/19 12:24 07/21/19 22:19 07/23/19 12:24 07/23/19 12:24 Discharge - Discharge Clinical Impression: Abscess Cellulitis Qualifiers: Site of cellulitis: extremity Site of cellulitis of extremity: lower extremity Laterality: right Qualified Code(s): L03.115 - Cellulitis of right lower limb Condition: Stable Disposition: HOME, SELF-CARE Additional Instructions: *Today was in the emergency department for wound recheck. You did require opening the wound to make a slightly bigger incision to promote drainage. The wound was not deep or large enough to place packing. This will continue to drain over the next few days. Please use gauze and paper tape that was given to you. The paper tape will be less adhesive and irritating to your skin. Please use the [place] as previously prescribed to you. [place] is a narcotic. Please do not drive or operate heavy machinery while on this medication. Please use warm compresses to the site. I have also prescribed you ibuprofen that you may take 3 times a day as needed. This is a high-dose ibuprofen at 800 mg. ABSCESS: You have an abscess (boil). This a pus-forming infection, usually due to staph. Some boils may be left to drain on their own, but most require lancing. From the time the tender lump first appears, it may be three or four days before the abscess is ready to carlos. Local heat and rest help at this stage of treatment. An antibiotic may prevent spread of the infection. Once the abscess is opened, packing may be placed into it. This is done so pus is not sealed inside by premature closure of the cavity. The packing will be removed at your follow-up visit or you may be advised to remove it yourself at home. Sometimes this packing must be replaced a few times during healing. The wound will heal with surprisingly little scar. Depending on the size and location of an abscess, healing can take one to four weeks. You may shower and wash the area around the incision site two or three times a day. Antibiotics may be prescribed, but are usually not necessary after an abscess has been drained. If you develop fever, chills, worsening pain, or increasing swelling in the area, call the doctor or return immediately. POST INCISION AND DRAINAGE: You have had an incision made to allow drainage of an abscess. The incision must remain open so that pus and debris can drain from the wound. If the abscess cavity is large, packing is placed. This keeps the tissues from collapsing and trapping pus inside, while the body shrinks the cavity. The packing may need to be replaced every day or two. The physician will instruct you on the packing. Keep a bulky dressing over the area. Replace it if it becomes saturated with blood or pus. Do not disturb the packing (if present). You may shower and cleanse the area with gentle soap and warm water two or three times a day. Local warmth may be soothing, and may promote faster healing. Return if you develop high fever or chills, or if you note spreading redness, increasing swelling, or increasing tenderness. ORAL NARCOTIC MEDICATION: You have been given a prescription for pain control. This medication is a narcotic. It's best taken with food, as nausea can result if taken on an empty stomach. Don't operate machinery or drive within six hours of taking this medi cation. Do not combine this medicine with alcohol, or with any medication which can cause sedation (such as cold tablets or sleeping pills) unless you get permission from the physician. Narcotics tend to cause constipation. If possible, drink plenty of fluids and eat a diet high in fiber and fruits. FOLLOW-UP CARE: Most simple abscesses will not require a follow up visit. If you had packing placed in the abscess, remove it as instructed by the physician. If you have been referred to a physician for follow-up care, call the physicians office for an appointment as you were instructed or within the next two days. If you experience worsening or a significant change in your symptoms, return to the Emergency Department at any time for re-evaluation. Prescriptions: Ibuprofen [Motrin 800 mg Tablet] 800 mg PO Q8H PRN #30 tab PRN Reason: Forms: Return to Work
== END 2019-07-23 13:00 | disposition home or self-care (01) ==
LOC: ER 12:05
DX: L02.415 Cutaneous abscess of right lower limb (principal); L03.115 Cellulitis of right lower limb; M79.651 Pain in right thigh; M79.89 Other specified soft tissue disorders; I10 Essential (primary) hypertension; J45.909 Unspecified asthma, uncomplicated
CPT/HCPCS: 99283

== ENCOUNTER 2019-09-21 14:15 | Emergency (ER) | payer OTHER | END 2019-09-22 06:43 | disposition left against medical advice (07) | LOC: ER 14:15 | DX: Z53.21 Procedure and treatment not carried out due to patient leaving prior to being seen by health care provider (principal); R42 Dizziness and giddiness; R11.0 Nausea; R53.83 Other fatigue ==

== ENCOUNTER 2019-09-27 10:58 | Emergency (ER) | payer SELFPAY ==
--- NOTE | 2019-09-27 11:43 | ER Document Report ---
ED Medical Screen (RME) - General Chief Complaint: Abdominal Pain Stated Complaint: LOWER ABDOMINAL PAIN Time Seen by Provider: 09/27/19 11:39 Primary Care Provider: VITA KOTHARI MD [Primary Care Provider] - Follow up as needed Mode of Arrival: Ambulatory Information source: Patient Notes: 29-year-old female presents with complaints of vaginal spotting some abdominal cramping nausea. She is 3 days late for her menses. She reports she recently took antibiotics and did not know she needed to do alternate control. Denies fever vomiting diarrhea. Reports last menstrual period was in August. I have greeted and performed a rapid initial assessment of this patient. A comprehensive ED assessment and evaluation of the patient, analysis of test results and completion of the medical decision making process will be conducted by additional ED providers. TRAVEL OUTSIDE OF THE [place] IN LAST 30 DAYS: No - Related Data Allergies/Adverse Reactions: morphine [Morphine] Allergy (Severe, Verified 09/27/19 11:32) Difficulty breathing/itch shellfish derived Allergy (Severe, Verified 09/27/19 11:32) Anaphylaxis iodine [Iodine] Allergy (Intermediate, Verified 09/27/19 11:32) RASH latex [Latex] Allergy (Intermediate, Verified 09/27/19 11:32) RASH diphenhydramine [From Benadryl] Allergy (Verified 09/27/19 11:32) Past Medical History - Social History Chew tobacco use (# tins/day): No Frequency of alcohol use: None Drug Abuse: None Family history: Reviewed & Not Pertinent, Hypertension, Other - copd - Past Medical History Cardiac Medical History: Reports: Hx Hypertension Denies: Hx Heart Attack Pulmonary Medical History: Reports: Hx Asthma - resolved Denies: Hx Bronchitis, Hx COPD, Hx Pneumonia Neurological Medical History: Reports: Hx Migraine. Denies: Hx Seizures Renal/ Medical History: Reports: Hx Kidney Stones, Hx Pelvic Inflammatory Disease. Denies: Hx Peritoneal Dialysis Musculoskeltal Medical History: Denies Hx Arthritis, Reports Hx Musculoskeletal Trauma Psychiatric Medical History: Reports: Hx Bipolar Disorder, Hx Depression, Hx Post Traumatic Stress Disorder Traumatic Medical History: Reports: Hx Fractures - Fractured ankle Past Surgical History: Reports: Hx Cholecystectomy, Hx Oral Surgery - wisdom tooth removal 07/2016, Hx Orthopedic Surgery - right ankle - Immunizations Immunizations up to date: Yes Hx Diphtheria, Pertussis, Tetanus Vaccination: Yes Physical Exam - Vital signs Vitals: Temp Pulse Resp BP Pulse Ox 98.6 F 110 H 16 149/86 H 100 09/27/19 11:06 09/27/19 11:06 09/27/19 11:06 09/27/19 11:06 09/27/19 11:06 Course - Vital Signs Vital signs: Temp Pulse Resp BP Pulse Ox 98.6 F 110 H 16 149/86 H 100 09/27/19 11:06 09/27/19 11:06 09/27/19 11:06 09/27/19 11:06 09/27/19 11:06 Doctor's Discharge - Discharge Referrals: VITA KOTHARI MD [Primary Care Provider] - Follow up as needed
[2019-09-27 12:43] LABS: ABSOLUTE EOSINOPHILS # (AUTO) 0.2 10^3/uL (0.0-0.6); ABSOLUTE LYMPHOCYTES (AUTO) 2.3 10^3/uL (0.5-4.7); ABSOLUTE MONOCYTES (AUTO) 0.7 10^3/uL (0.1-1.4); ABSOLUTE NEUT (AUTO) 6.6 10^3/uL (1.7-8.2); BASOPHILS % (AUTO) 0.2 % (0-2); EOSINOPHILS % (AUTO) 2.4 % (0-6); HEMATOCRIT 39.6 % (36.0-47.0); HEMOGLOBIN 14.1 g/dL (12.0-15.5); MEAN CORPUSCULAR HEMOGLOBIN 30.2 pg (27.0-33.4); MEAN CORPUSCULAR HGB CONC 35.6 g/dL (32.0-36.0); MEAN CORPUSCULAR VOLUME 85 fl (80-97); MONOCYTES % (AUTO) 6.8 % (3-13); PLATELET COUNT 422 10^3/uL (150-450); RED BLOOD COUNT 4.67 10^6/uL (3.72-5.28); RED CELL DISTRIBUTION WIDTH 12.6 % (11.5-14.0); SEGMENTED NEUTROPHILS % (AUTO) 67.6 % (42-78); TOTAL CELLS COUNTED % (AUTO) 100 %; WHITE BLOOD COUNT 9.8 10^3/uL (4.0-10.5)
[2019-09-27 12:49] LABS: APPEARANCE,URINE CLEAR; BILIRUBIN,URINE NEGATIVE (NEGATIVE); COLOR,URINE STRAW; GLUCOSE, URINE NEGATIVE (NEGATIVE); KETONES,URINE NEGATIVE (NEGATIVE); LEUKOCYTE ESTERASE,URINE NEGATIVE (NEGATIVE); NITRITE,URINE NEGATIVE (NEGATIVE); PROTEIN,URINE NEGATIVE (NEGATIVE); UROBILINOGEN,URINE NEGATIVE mg/dL (<2.0)
[2019-09-27 13:07] LABS: ALBUMIN 3.6 g/dL (3.5-5.0); ALKALINE PHOSPHATASE 66 U/L (38-126); ANION GAP 9 (5-19); ASPARTATE AMINO TRANSFERASE 23 U/L (14-36); BILIRUBIN,DIRECT 0.2 mg/dL (0.0-0.4); BILIRUBIN,TOTAL 0.3 mg/dL (0.2-1.3); BLOOD UREA NITROGEN 11 mg/dL (7-20); CALCIUM 8.7 mg/dL (8.4-10.2); CARBON DIOXIDE 29 mmol/L (22-30); CHLORIDE 100 mmol/L (98-107); GLUCOSE 93 mg/dL (75-110); POTASSIUM 3.7 mmol/L (3.6-5.0); TOTAL PROTEIN 6.4 g/dL (6.3-8.2)
--- NOTE | 2019-09-27 13:54 | ER Document Report ---
HPI - HPI Patient complains to provider of: nausea, abd cramping Time Seen by Provider: 09/27/19 11:39 Onset: Other Quality of pain: Cramping Pain Level: 1 Context: 29-year-old female presents with complaints of vaginal spotting some abdominal cramping nausea. She is 3 days late for her menses. She reports she recently took antibiotics and did not know she needed to do alternate control. Denies fever vomiting diarrhea. Reports last menstrual period was in August. Associated Symptoms: Nausea Exacerbated by: Denies Relieved by: Denies Similar symptoms previously: No Recently seen / treated by doctor: No - REPRODUCTIVE Reproductive: DENIES: : Past Medical History - General Information source: Patient Last Menstrual Period: august - Social History Smoking Status: Never Smoker Chew tobacco use (# tins/day): No Frequency of alcohol use: None Drug Abuse: None Lives with: Family Family History: Reviewed & Not Pertinent, CAD, COPD, CVA, DM, Hyperlipidemia, Hypertension Patient has suicidal ideation: No Patient has homicidal ideation: No - Past Medical History Cardiac Medical History: Reports: Hx Hypertension Denies: Hx Heart Attack Pulmonary Medical History: Reports: Hx Asthma - resolved Denies: Hx Bronchitis, Hx COPD, Hx Pneumonia Neurological Medical History: Reports: Hx Migraine. Denies: Hx Seizures Renal/ Medical History: Reports: Hx Kidney Stones, Hx Pelvic Inflammatory Disease. Denies: Hx Peritoneal Dialysis Musculoskeletal Medical History: Denies Hx Arthritis, Reports Hx Musculoskeletal Trauma Psychiatric Medical History: Reports: Hx Bipolar Disorder, Hx Depression, Hx Post Traumatic Stress Disorder Traumatic Medical History: Reports: Hx Fractures - Fractured ankle Past Surgical History: Reports: Hx Cholecystectomy, Hx Oral Surgery - wisdom tooth removal 07/2016, Hx Orthopedic Surgery - right ankle - Immunizations Immunizations up to date: Yes Hx Diphtheria, Pertussis, Tetanus Vaccination: Yes Vertical Provider Document - CONSTITUTIONAL Agree With Documented VS: Yes Exam Limitations: No Limitations General Appearance: WD/WN, No Apparent Distress - INFECTION CONTROL TRAVEL OUTSIDE OF THE [place] IN LAST 30 DAYS: No - HEENT HEENT: Atraumatic, Normocephalic - NECK Neck: Supple - RESPIRATORY Respiratory: No Respiratory Distress - GI/ABDOMEN Gastrointestinal: Abdomen Soft, Abdomen Non-Tender - MUSCULOSKELETAL/EXTREMETIES Musculoskeletal/Extremeties: [place] - NEURO Level of Consciousness: Awake, Alert, Appropriate - DERM Integumentary: Warm, Dry Course - Re-evaluation Re-evalutation: 09/27/19 13:56 Labs returned. Patient is not . Possible patient has eloped. Laboratory 09/27/19 09/27/19 09/27/19 12:13 12:13 12:13 WBC 9.8 RBC 4.67 Hgb 14.1 Hct 39.6 MCV 85 MCH 30.2 MCHC 35.6 RDW 12.6 Plt Count 422 Lymph % (Auto) 23.0 [place] % (Auto) 6.8 Eos % (Auto) 2.4 Baso % (Auto) 0.2 Absolute Neuts (auto) 6.6 Absolute Lymphs (auto) 2.3 Absolute Monos (auto) 0.7 Absolute Eos (auto) 0.2 Absolute Basos (auto) 0.0 Seg Neutrophils % 67.6 Sodium 137.6 Potassium 3.7 Chloride 100 Carbon Dioxide 29 Anion Gap 9 BUN 11 Creatinine 0.64 Est GFR ( Amer) > 60 Est GFR (MDRD) Non-Af > 60 Glucose 93 Calcium 8.7 Total Bilirubin 0.3 Direct Bilirubin 0.2 Neonat Total Bilirubin Not Reportable Neonat Direct Bilirubin Not Reportable Neonat Indirect Bili Not Reportable AST 23 ALT 16 Alkaline Phosphatase 66 Total Protein 6.4 Albumin 3.6 Serum HCG, Qual NEGATIVE Urine Color Urine Appearance Urine pH Ur Specific [place] Urine Protein Urine Glucose (UA) Urine Ketones Urine Blood Urine Nitrite Urine Bilirubin Urine Urobilinogen Ur Leukocyte Esterase Urine WBC (Auto) Squamous Epi Cells Auto Urine Mucus (Auto) Urine Ascorbic Acid Blood Type Rhogam Indicated 09/27/19 09/27/19 12:13 12:13 WBC RBC Hgb Hct MCV MCH MCHC RDW Plt Count Lymph % (Auto) [place] % (Auto) Eos % (Auto) Baso % (Auto) Absolute Neuts (auto) Absolute Lymphs (auto) Absolute Monos (auto) Absolute Eos (auto) Absolute Basos (auto) Seg Neutrophils % Sodium Potassium Chloride Carbon Dioxide Anion Gap BUN Creatinine Est GFR ( Amer) Est GFR (MDRD) Non-Af Glucose Calcium Total Bilirubin Direct Bilirubin Neonat Total Bilirubin Neonat Direct Bilirubin Neonat Indirect Bili AST ALT Alkaline Phosphatase Total Protein Albumin Serum HCG, Qual Urine Color STRAW Urine Appearance CLEAR Urine pH 5.0 Ur Specific [place] 1.010 Urine Protein NEGATIVE Urine Glucose (UA) NEGATIVE Urine Ketones NEGATIVE Urine Blood SMALL H Urine Nitrite NEGATIVE Urine Bilirubin NEGATIVE Urine Urobilinogen NEGATIVE Ur Leukocyte Esterase NEGATIVE Urine WBC (Auto) 0 Squamous Epi Cells Auto 1 Urine Mucus (Auto) RARE Urine Ascorbic Acid NEGATIVE Blood Type O POSITIVE Rhogam Indicated RHOGAM NOT INDICATED 09/27/19 14:00 - Vital Signs Vital signs: Temp Pulse Resp BP Pulse Ox 98.6 F 110 H 16 149/86 H 100 09/27/19 11:06 09/27/19 11:06 09/27/19 11:06 09/27/19 11:06 09/27/19 11:06 - Laboratory Result Diagrams: 09/27/19 12:13 09/27/19 12:13 Laboratory results interpreted by me: 09/27/19 12:13 Urine Blood SMALL H Discharge - Discharge Clinical Impression: Nausea, Abdominal cramping Condition: Stable Disposition: HOME, SELF-CARE Additional Instructions: *You have been evaluated for nausea, abdominal cramping *Your test was negative *Follow up with a primary care provider within 1 week for recheck *Return to ED for worsening condition, changes, needs *Return to ED if not better in 24 hours Referrals: VITA KOTHARI MD [Primary Care Provider] - Follow up as needed
[2019-09-27 14:37] VITALS: BP 142/80
== END 2019-09-27 14:36 | disposition home or self-care (01) ==
LOC: ER 10:58
DX: R11.0 Nausea (principal); R10.9 Unspecified abdominal pain; I10 Essential (primary) hypertension; Z87.442 Personal history of urinary calculi; Z87.42 Personal history of other diseases of the female genital tract
CPT/HCPCS: 36415; 80053; 81001; 84703; 85025; 86900; 86901

== ENCOUNTER 2019-10-02 17:27 | Emergency (ER) | payer SELFPAY ==
[2019-10-02] MEDS ORDERED: HYDROCODONE/ACETAMINOPHEN 5-325 MG TABLET PO ONE (17:49)
--- NOTE | 2019-10-02 17:51 | ER Document Report ---
ED Medical Screen (RME) - General Chief Complaint: Rectal Pain Stated Complaint: RECTAL PAIN Time Seen by Provider: 10/02/19 17:48 Primary Care Provider: VITA KOTHARI MD [Primary Care Provider] - Follow up as needed Notes: 29 y/o female presents with rectal pain secondary to hemorrhoid for 1 week. States history of hemorrhoids but has never had one this painful or swollen. Pt states she went to doctor's and was given suppositories which did not help. Pt also tried tucks pads with no relief. Pt is very uncomfortable in triage and unable to sit. Rectal exam reveals large swollen external hemorrhoid. States associated nausea and states has stopped eating due to not wanting a BM. I have greeted and performed a rapid initial assessment of this patient. A comprehensive ED assessment and evaluation of the patient, analysis of test results and completion of the medical decision making process with be conducted by additional ED providers. TRAVEL OUTSIDE OF THE [place] IN LAST 30 DAYS: No - Related Data Allergies/Adverse Reactions: morphine [Morphine] Allergy (Severe, Verified 10/02/19 17:47) Difficulty breathing/itch shellfish derived Allergy (Severe, Verified 10/02/19 17:47) Anaphylaxis iodine [Iodine] Allergy (Intermediate, Verified 10/02/19 17:47) RASH latex [Latex] Allergy (Intermediate, Verified 10/02/19 17:47) RASH diphenhydramine [From Benadryl] Allergy (Verified 10/02/19 17:47) Past Medical History - Social History Family history: Reviewed & Not Pertinent, Hypertension, Other - copd - Past Medical History Cardiac Medical History: Reports: Hx Hypertension Denies: Hx Heart Attack Pulmonary Medical History: Reports: Hx Asthma - resolved Denies: Hx Bronchitis, Hx COPD, Hx Pneumonia Neurological Medical History: Reports: Hx Migraine. Denies: Hx Seizures Renal/ Medical History: Reports: Hx Kidney Stones, Hx Pelvic Inflammatory Disease. Denies: Hx Peritoneal Dialysis Musculoskeltal Medical History: Denies Hx Arthritis, Reports Hx Musculoskeletal Trauma Psychiatric Medical History: Reports: Hx Bipolar Disorder, Hx Depression, Hx Post Traumatic Stress Disorder Traumatic Medical History: Reports: Hx Fractures - Fractured ankle Past Surgical History: Reports: Hx Cholecystectomy, Hx Oral Surgery - wisdom tooth removal 07/2016, Hx Orthopedic Surgery - right ankle - Immunizations Immunizations up to date: Yes Hx Diphtheria, Pertussis, Tetanus Vaccination: Yes Physical Exam - Vital signs Vitals: Temp Pulse Resp BP Pulse Ox 97.6 F 103 H 20 132/87 H 100 10/02/19 17:29 10/02/19 17:29 10/02/19 17:29 10/02/19 17:29 10/02/19 17:29 Course - Vital Signs Vital signs: Temp Pulse Resp BP Pulse Ox 97.6 F 103 H 20 132/87 H 100 10/02/19 17:29 10/02/19 17:29 10/02/19 17:29 10/02/19 17:29 10/02/19 17:29 Doctor's Discharge - Discharge Referrals: VITA KOTHARI MD [Primary Care Provider] - Follow up as needed
[2019-10-02] MEDS ORDERED: LIDOCAINE 1% INJ-PF (10 MG/ML) 30 ML SDV INJ ONE (18:15)
[2019-10-02 18:18] LABS: ABSOLUTE EOSINOPHILS # (AUTO) 0.2 10^3/uL (0.0-0.6); ABSOLUTE LYMPHOCYTES (AUTO) 4.4 10^3/uL (0.5-4.7); ABSOLUTE MONOCYTES (AUTO) 0.9 10^3/uL (0.1-1.4); ABSOLUTE NEUT (AUTO) 7.8 10^3/uL (1.7-8.2); BASOPHILS % (AUTO) 0.2 % (0-2); EOSINOPHILS % (AUTO) 1.9 % (0-6); HEMATOCRIT 43.2 % (36.0-47.0); HEMOGLOBIN 14.7 g/dL (12.0-15.5); LYMPHOCYTES % (AUTO) 32.9 % (13-45); MEAN CORPUSCULAR HEMOGLOBIN 29.4 pg (27.0-33.4); MEAN CORPUSCULAR VOLUME 87 fl (80-97); MONOCYTES % (AUTO) 6.7 % (3-13); PLATELET COUNT 505 10^3/uL (150-450); RED BLOOD COUNT 4.99 10^6/uL (3.72-5.28); RED CELL DISTRIBUTION WIDTH 12.9 % (11.5-14.0); SEGMENTED NEUTROPHILS % (AUTO) 58.3 % (42-78); TOTAL CELLS COUNTED % (AUTO) 100 %; WHITE BLOOD COUNT 13.4 10^3/uL (4.0-10.5)
--- NOTE | 2019-10-02 18:20 | ER Document Report ---
ED General - General Chief Complaint: Hemorrhoids Stated Complaint: RECTAL PAIN Time Seen by Provider: 10/02/19 17:48 Primary Care Provider: VITA KOTHARI MD [NO LOCAL MD] - Follow up as needed Notes: Patient is a 29-year-old white female with a past medical history of hemorrhoids who presents to the emergency department today with a chief complaint of worsening hemorrhoid. She states she seen her doctor tried multiple conservative therapies without any improvement. She states the pain is very severe, she is avoided trying to have a BM. She is decreased oral intake and efforts to try to decrease BM. She states she cannot sit or find a comfortable position. She states she did not know what else to do so she came for evaluation. She admits to occasional bright red blood per rectum on toilet tissue. No abdominal pain or fever. No urinary complaints. TRAVEL OUTSIDE OF THE [place] IN LAST 30 DAYS: No - Related Data Allergies/Adverse Reactions: morphine [Morphine] Allergy (Severe, Verified 10/02/19 17:47) Difficulty breathing/itch shellfish derived Allergy (Severe, Verified 10/02/19 17:47) Anaphylaxis iodine [Iodine] Allergy (Intermediate, Verified 10/02/19 17:47) RASH latex [Latex] Allergy (Intermediate, Verified 10/02/19 17:47) RASH diphenhydramine [From Benadryl] Allergy (Verified 10/02/19 17:47) Home Medications: lisinopril. hctz Past Medical History - Social History Smoking Status: Never Smoker Chew tobacco use (# tins/day): No Frequency of alcohol use: None Drug Abuse: None Family History: Reviewed & Not Pertinent, CAD, COPD, CVA, DM, Hyperlipidemia, Hypertension Patient has suicidal ideation: No Patient has homicidal ideation: No - Past Medical History Cardiac Medical History: Reports: Hx Hypertension Denies: Hx Heart Attack Pulmonary Medical History: Reports: Hx Asthma - resolved Denies: Hx Bronchitis, Hx COPD, Hx Pneumonia Neurological Medical History: Reports: Hx Migraine. Denies: Hx Seizures Renal/ Medical History: Reports: Hx Kidney Stones, Hx Pelvic Inflammatory Disease. Denies: Hx Peritoneal Dialysis Musculoskeletal Medical History: Denies Hx Arthritis, Reports Hx Musculoskeletal Trauma Psychiatric Medical History: Reports: Hx Bipolar Disorder, Hx Depression, Hx Post Traumatic Stress Disorder Traumatic Medical History: Reports: Hx Fractures - Fractured ankle Past Surgical History: Reports: Hx Cholecystectomy, Hx Oral Surgery - wisdom tooth removal 07/2016, Hx Orthopedic Surgery - right ankle - Immunizations Immunizations up to date: Yes Hx Diphtheria, Pertussis, Tetanus Vaccination: Yes Review of Systems - Review of Systems Genitourinary: Other - Anal pain and swelling -: Yes All other systems reviewed and negative Physical Exam - Vital signs Vitals: Temp Pulse Resp BP Pulse Ox 97.6 F 103 H 20 132/87 H 100 10/02/19 17:29 10/02/19 17:29 10/02/19 17:29 10/02/19 17:29 10/02/19 17:29 - General General appearance: Appears well, Alert In distress: Mild - Respiratory Respiratory status: No respiratory distress Chest status: Nontender Breath sounds: Normal Chest palpation: Normal - Cardiovascular Rhythm: Regular Heart sounds: Normal auscultation - Rectal Tenderness: Yes Hemorrhoids: External, Other - External thrombosed hemorrhoid noted to the 6 o'clock position. Chaperoned by female nurse. - Neurological Neuro grossly intact: Yes Cognition: Normal Orientation: AAOx4 Celi Coma Scale Eye Opening: Spontaneous Celi Coma Scale Verbal: Oriented [place] Coma Scale Motor: Obeys Commands [place] Coma Scale Total: 15 Speech: Normal - Psychological Associated symptoms: Anxious - Skin Skin Temperature: Warm Skin Moisture: Dry Skin Color: Normal Course - Re-evaluation Re-evalutation: 10/02/19 18:40 Patient tolerated removal of thrombosed hemorrhoid well. She was given [place] here. Will send home on Keflex, short course of [place], MiraLAX and Anusol. Counseled her regarding the importance of sitz baths. Discussed with her the importance of follow-up as well. 2 to 3 days for wound recheck. Advise she return here or any ER immediately with any new, persistent or worsening symptoms. She verbalized understood and agreed. - Vital Signs Vital signs: Temp Pulse Resp BP Pulse Ox 97.6 F 103 H 20 132/87 H 100 10/02/19 17:29 10/02/19 17:29 10/02/19 17:29 10/02/19 17:29 10/02/19 17:29 - Laboratory Result Diagrams: 10/02/19 18:00 10/02/19 18:00 Laboratory results interpreted by me: 10/02/19 18:00 WBC 13.4 H Plt Count 505 H Procedures - Incision and Drainage Lower Buttock Time completed: 18:39 - 6 o'clock position of the anus Type: Simple, Single Anesthetic type: 1% Lidocaine mL's of anesthetic: 3 Blade size: 11 I&D procedure: Chlorprep applied Incision Method: Incision made by scalpel Amount/type of drainage: Small blood clot Notes: 10/02/19 18:40 Patient tolerated well Discharge - Discharge Clinical Impression: Thrombosed hemorrhoids Condition: Stable Disposition: HOME, SELF-CARE Instructions: Incision of Thrombosed Hemorrhoids ([facility]) Additional Instructions: Follow-up with your doctor in 2 to 3 days for reevaluation. Return here or any ER immediately with any new, persistent or worsening symptoms. Prescriptions: Hydrocortisone Acetate [Anusol Hc 25 mg Supp.rect] 1 supp.rect NV BID #14 supp.r ect Cephalexin Monohydrate [Keflex 500 mg Capsule] 500 mg PO BID #20 capsule Polyethylene Glycol 3350 [Miralax Powder 17 gm/Packet] 1 packet PO DAILY #7 pkg Hydrocodone/Acetaminophen [[place] 5-325 mg Tabs (6 Tab/ER Disp)] 0 tab PO Q6 PRN #1 [id number] PRN Reason: Referrals: VITA KOTHARI MD [NO LOCAL MD] - Follow up as needed
[2019-10-02 18:39] LABS: ALBUMIN 3.4 g/dL (3.5-5.0); ALKALINE PHOSPHATASE 68 U/L (38-126); ANION GAP 5 (5-19); ASPARTATE AMINO TRANSFERASE 23 U/L (14-36); BILIRUBIN,TOTAL 0.1 mg/dL (0.2-1.3); BLOOD UREA NITROGEN 9 mg/dL (7-20); CALCIUM 8.5 mg/dL (8.4-10.2); CARBON DIOXIDE 32 mmol/L (22-30); CHLORIDE 99 mmol/L (98-107); GLUCOSE 86 mg/dL (75-110); POTASSIUM 3.8 mmol/L (3.6-5.0)
[2019-10-02] MEDS ORDERED: HYDROCODONE/ACETAMINOPHEN 5-325 MG (6 TAB/ER DISP) PO PRN (18:47)
[2019-10-02 18:51] VITALS: BP 129/69
== END 2019-10-02 18:58 | disposition home or self-care (01) ==
LOC: ER 17:27
PROC: 0H98XZZ Drainage of Buttock Skin, External Approach (ICD-10-PCS; principal; 2019-10-02)
DX: K64.5 Perianal venous thrombosis (principal); K62.89 Other specified diseases of anus and rectum; J45.909 Unspecified asthma, uncomplicated; I10 Essential (primary) hypertension
CPT/HCPCS: 36415; 80053; 84703; 85025; 99283

== ENCOUNTER 2019-10-04 15:36 | Emergency (ER) | payer SELFPAY ==
[2019-10-04 15:50] VITALS: BP 110/74
[2019-10-04] MEDS ORDERED: ONDANSETRON 4 MG TAB.RAPDIS PO ONE (16:37)
[2019-10-04] MEDS ORDERED: ONDANSETRON ODT 4 MG TAB (6 TAB/ER DISP) PO PRN (17:21)
--- NOTE | 2019-10-04 17:23 | ER Document Report ---
HPI - HPI Time Seen by Provider: 10/04/19 16:33 Pain Level: 3 Context: Patient is a 29-year-old female who presents emergency department with a chief complaint of rectal pain. Patient reports she was seen here 2 days ago and was diagnosed with a thrombosed hemorrhoid. Patient reports this was cut and drained. Patient was placed on Keflex, steroid suppositories, has been using sitz bath, has been using stool softeners, and was given [place]. Patient reports the [place] has been helping but today she was having severe rectal pain that this caused nausea and was unable to keep the [place] down. Patient reports she feels like the hemorrhoid has returned. Patient reports seeing bright red blood when she wipes her rectal area. - REPRODUCTIVE LMP: 09/27/2019 Reproductive: DENIES: : Past Medical History - General Information source: Patient - Social History Smoking Status: Never Smoker Chew tobacco use (# tins/day): No Frequency of alcohol use: None Drug Abuse: None Lives with: Family Family History: Reviewed & Not Pertinent, CAD, COPD, CVA, DM, Hyperlipidemia, Hypertension Patient has suicidal ideation: No Patient has homicidal ideation: No - Past Medical History Cardiac Medical History: Reports: Hx Hypertension Denies: Hx Heart Attack Pulmonary Medical History: Reports: Hx Asthma - resolved Denies: Hx Bronchitis, Hx COPD, Hx Pneumonia EENT Medical History: Reports: None Neurological Medical History: Reports: Hx Migraine. Denies: Hx Seizures Endocrine Medical History: Reports: None Renal/ Medical History: Reports: Hx Kidney Stones, Hx Pelvic Inflammatory Disease. Denies: Hx Peritoneal Dialysis Malignancy Medical History: Reports: None GI Medical History: Reports: None Musculoskeletal Medical History: Denies Hx Arthritis, Reports Hx Musculoskeletal Trauma Skin Medical History: Reports None Psychiatric Medical History: Reports: Hx Bipolar Disorder, Hx Depression, Hx Post Traumatic Stress Disorder Traumatic Medical History: Reports: Hx Fractures - Fractured ankle Past Surgical History: Reports: Hx Cholecystectomy, Hx Oral Surgery - wisdom tooth removal 07/2016, Hx Orthopedic Surgery - right ankle - Immunizations Immunizations up to date: Yes Hx Diphtheria, Pertussis, Tetanus Vaccination: Yes Vertical Provider Document - CONSTITUTIONAL Agree With Documented VS: Yes Exam Limitations: No Limitations General Appearance: No Apparent Distress - INFECTION CONTROL TRAVEL OUTSIDE OF THE [place] IN LAST 30 DAYS: No - HEENT HEENT: Atraumatic, Normal ENT Exam, Normocephalic, PERRLA - RESPIRATORY Respiratory: Breath Sounds Normal, No Respiratory Distress - CARDIOVASCULAR Cardiovascular: Regular Rate, Regular Rhythm - GI/ABDOMEN Gastrointestinal: Abdomen Soft, Abdomen Non-Tender, Normal Bowel Sounds - MUSCULOSKELETAL/EXTREMETIES Musculoskeletal/Extremeties: FROM - NEURO Level of Consciousness: Awake, Alert, Appropriate - DERM Integumentary: Warm, Dry, No Rash Course - Re-evaluation Re-evalutation: 10/04/19 17:22 A rectal exam was performed with the PCT Zulema as a general service technician. The rectal examination and did reveal an external hemorrhoid at the 6 o'clock position. This is not thrombosed. This was very small. There is no active bleeding. Prior to discharge the patient did get a dose of Zofran for her nausea and has been tolerating liquids. We will get prescribe the patient [place]. I did inform the patient that the hemorrhoid does have the ability to get larger and thrombosed once again. I did refer her to [facility]. Patient given strict return precautions. Patient to continue her regimen that was prescribed 2 days ago. - Vital Signs Vital signs: Temp Pulse Resp BP Pulse Ox 97.8 F 101 H 16 110/74 100 10/04/19 15:48 10/04/19 15:48 10/04/19 15:48 10/04/19 15:48 10/04/19 15:48 Discharge - Discharge Clinical Impression: External hemorrhoid Condition: Stable Disposition: HOME, SELF-CARE Additional Instructions: *Today was seen in the emergency department for possible hemorrhoid. You were seen here 2 days ago and had a thrombosed hemorrhoid cut and drained. Your examination did reveal an external hemorrhoid today but this is not thrombosed and does not require incision and drainage. Please continue doing the warm sitz bath, using the suppositories which are steroids, MiraLAX, pushing fluids. I will prescribe you antinausea medications to take so you are able to appropriately hydrate. Make sure you are eating a high-fiber diet to include v egetables and fruit. I will refer you to [facility], please call them tomorrow to make a follow-up appointment since she continued to have rectal pain and hemorrhoids. In the meantime before you are able to get an appointment to return to the emergency department if your symptoms return, rectal pain increases, or if your hemorrhoid gets larger as this could become thrombosed once again. Some people do require surgery and banding of hemorrhoids. *Do not drive or operate heavy machinery while on the [employer] Hemorrhoids You have hemorrhoids. These are formed by enlargement of veins around the anus. The cause is increased pressure in the veins, from or straining at bowel movements. Hemorrhoids often cause itching and bleeding with bowel m ovements. When a hemorrhoid becomes clotted, severe pain and swelling result. Soothing creams and suppositories are often prescribed. Warm sitz-baths may also decrease pain, swelling, and itching. Eat a high-fiber diet. Stool softeners such as Metamucil will help. Keep the area very clean. Medicated cleansing pads (such as Tucks) are useful after bowel movements. A hose-mounted shower unit (like a shower massager at low water pressure) can be used to clean around tender hemorrhoid tags. You should call the doctor or return if you develop fever, increasing pain, or an enlarging mass around the anus, or if you simply fail to improve with treatment. Prescriptions: Hydrocodone/Acetaminophen [[place] 5-325 mg Tablet] 1 tab PO Q6 PRN #8 tablet PRN Reason: Referrals: JING CALDERÓN PA-C [Primary Care Provider] - Follow up as needed [facility] [Provider Group] - Follow up as needed
== END 2019-10-04 17:50 | disposition home or self-care (01) ==
LOC: ER 15:36
DX: K64.4 Residual hemorrhoidal skin tags (principal); K62.89 Other specified diseases of anus and rectum; R11.0 Nausea; I10 Essential (primary) hypertension; Z87.442 Personal history of urinary calculi; Z90.49 Acquired absence of other specified parts of digestive tract
CPT/HCPCS: 99282; S0119

== ENCOUNTER 2019-10-23 18:49 | Emergency (ER) | payer MEDICAID ==
[2019-10-23 19:10] VITALS: BP 122/71
--- NOTE | 2019-10-23 19:58 | ER Document Report ---
ED Medical Screen (RME) - General Chief Complaint: Hemorrhoids Stated Complaint: HEMORRHOID Time Seen by Provider: 10/23/19 19:55 Primary Care Provider: JING CALDERÓN PA-C [Primary Care Provider] - Follow up as needed Mode of Arrival: Ambulatory Information source: Patient Notes: 29-year-old female presented to ED for a very painful hemorrhoid. She states she did get her hemorrhoid excised in the emergency room and they told her at that time that at some point that she would need to go to the surgery center and get it removed. She states that the pain is gotten much worse. She states she has been on antibiotics multiple times and the pain is getting to the point that she cannot stand to go to work and go to school. She is in here today for increase in pain. Patient is alert oriented respirations regular nonlabored speaking in full sentences. It is very painful to sit. I have greeted and performed a rapid initial assessment of this patient. A comprehensive ED assessment and evaluation of the patient, analysis of test results and completion of medical decision making process will be conducted by an additional ED providers. TRAVEL OUTSIDE OF THE [place] IN LAST 30 DAYS: No - Related Data Allergies/Adverse Reactions: morphine [Morphine] Allergy (Severe, Verified 10/04/19 16:28) Difficulty breathing/itch shellfish derived Allergy (Severe, Verified 10/04/19 16:28) Anaphylaxis iodine [Iodine] Allergy (Intermediate, Verified 10/04/19 16:28) RASH latex [Latex] Allergy (Intermediate, Verified 10/04/19 16:28) RASH diphenhydramine [From Benadryl] Allergy (Verified 10/04/19 16:28) Past Medical History - Social History Family history: Reviewed & Not Pertinent, Hypertension, Other - copd - Past Medical History Cardiac Medical History: Reports: Hx Hypertension Denies: Hx Heart Attack Pulmonary Medical History: Reports: Hx Asthma - resolved Denies: Hx Bronchitis, Hx COPD, Hx Pneumonia Neurological Medical History: Reports: Hx Migraine. Denies: Hx Seizures Renal/ Medical History: Reports: Hx Kidney Stones, Hx Pelvic Inflammatory Disease. Denies: Hx Peritoneal Dialysis Musculoskeltal Medical History: Denies Hx Arthritis, Reports Hx Musculoskeletal Trauma Psychiatric Medical History: Reports: Hx Bipolar Disorder, Hx Depression, Hx Post Traumatic Stress Disorder Traumatic Medical History: Reports: Hx Fractures - Fractured ankle Past Surgical History: Reports: Hx Cholecystectomy, Hx Oral Surgery - wisdom tooth removal 07/2016, Hx Orthopedic Surgery - right ankle - Immunizations Immunizations up to date: Yes Hx Diphtheria, Pertussis, Tetanus Vaccination: Yes Physical Exam - Vital signs Vitals: Temp Pulse Resp BP Pulse Ox 97.7 F 75 20 122/71 100 10/23/19 19:09 10/23/19 19:09 10/23/19 19:09 10/23/19 19:09 10/23/19 19:09 Course - Vital Signs Vital signs: Temp Pulse Resp BP Pulse Ox 97.7 F 75 20 122/71 100 10/23/19 19:09 10/23/19 19:09 10/23/19 19:09 10/23/19 19:09 10/23/19 19:09 Doctor's Discharge - Discharge Referrals: JING CALDERÓN PA-C [Primary Care Provider] - Follow up as needed
== END 2019-10-23 21:33 | disposition left against medical advice (07) ==
LOC: ER 18:49
DX: K64.9 Unspecified hemorrhoids (principal); I10 Essential (primary) hypertension; Z88.6 Allergy status to analgesic agent; Z88.5 Allergy status to narcotic agent; Z87.892 Personal history of anaphylaxis; Z91.013 Allergy to seafood; Z91.040 Latex allergy status; Z88.8 Allergy status to other drugs, medicaments and biological substances; Z53.20 Procedure and treatment not carried out because of patient's decision for unspecified reasons
CPT/HCPCS: 99281

== ENCOUNTER 2019-12-28 15:26 | Emergency (ER) | payer MEDICAID ==
--- NOTE | 2019-12-28 15:36 | ER Document Report ---
ED Medical Screen (RME) - General Chief Complaint: Abdominal Pain Stated Complaint: ABDOMINAL PAIN Time Seen by Provider: 12/28/19 15:31 Primary Care Provider: FABIAN SEQUEIRA ARNP [Primary Care Provider] - Follow up as needed Mode of Arrival: Ambulatory Information source: Patient Notes: Patient presents complaining of lower pelvic pain. Patient reports having a po sitive test at home. Patient is G5, P3. Patient denies any urinary symptoms, vaginal bleeding or vaginal discharge. Patient has not had an ultrasound to confirm the . I have greeted and performed a rapid initial assessment of this patient. A comprehensive ED assessment and evaluation of the patient, analysis of test results and completion of the medical decision making process will be conducted by additional ED providers. TRAVEL OUTSIDE OF THE [place] IN LAST 30 DAYS: No - Related Data Allergies/Adverse Reactions: morphine [Morphine] Allergy (Severe, Verified 10/23/19 19:56) Difficulty breathing/itch shellfish derived Allergy (Severe, Verified 10/23/19 19:56) Anaphylaxis iodine [Iodine] Allergy (Intermediate, Verified 10/23/19 19:56) RASH latex [Latex] Allergy (Intermediate, Verified 10/23/19 19:56) RASH diphenhydramine [From Benadryl] Allergy (Verified 10/23/19 19:56) Past Medical History - Social History Family history: Reviewed & Not Pertinent, Hypertension, Other - copd - Past Medical History Cardiac Medical History: Reports: Hx Hypertension Denies: Hx Heart Attack Pulmonary Medical History: Reports: Hx Asthma - resolved Denies: Hx Bronchitis, Hx COPD, Hx Pneumonia Neurological Medical History: Reports: Hx Migraine. Denies: Hx Seizures Renal/ Medical History: Reports: Hx Kidney Stones, Hx Pelvic Inflammatory Disease. Denies: Hx Peritoneal Dialysis Musculoskeltal Medical History: Denies Hx Arthritis, Reports Hx Musculoskeletal Trauma Psychiatric Medical History: Reports: Hx Bipolar Disorder, Hx Depression, Hx Post Traumatic Stress Disorder Traumatic Medical History: Reports: Hx Fractures - Fractured ankle Past Surgical History: Reports: Hx Cholecystectomy, Hx Oral Surgery - wisdom tooth removal 07/2016, Hx Orthopedic Surgery - right ankle - Immunizations Immunizations up to date: Yes Hx Diphtheria, Pertussis, Tetanus Vaccination: Yes Physical Exam - Abdominal Tenderness: Tender - Lower pelvic Doctor's Discharge - Discharge Referrals: FABIAN SEQUEIRA ARNP [Primary Care Provider] - Follow up as needed
[2019-12-28 16:06] LABS: ABSOLUTE EOSINOPHILS # (AUTO) 0.2 10^3/uL (0.0-0.6); ABSOLUTE LYMPHOCYTES (AUTO) 2.8 10^3/uL (0.5-4.7); ABSOLUTE MONOCYTES (AUTO) 1.2 10^3/uL (0.1-1.4); ABSOLUTE NEUT (AUTO) 11.1 10^3/uL (1.7-8.2); BASOPHILS % (AUTO) 0.1 % (0-2); EOSINOPHILS % (AUTO) 1.2 % (0-6); HEMATOCRIT 39.1 % (36.0-47.0); HEMOGLOBIN 13.8 g/dL (12.0-15.5); LYMPHOCYTES % (AUTO) 18.1 % (13-45); MEAN CORPUSCULAR HEMOGLOBIN 30.5 pg (27.0-33.4); MEAN CORPUSCULAR HGB CONC 35.3 g/dL (32.0-36.0); MEAN CORPUSCULAR VOLUME 86 fl (80-97); MONOCYTES % (AUTO) 7.9 % (3-13); PLATELET COUNT 402 10^3/uL (150-450); RED BLOOD COUNT 4.53 10^6/uL (3.72-5.28); RED CELL DISTRIBUTION WIDTH 13.8 % (11.5-14.0); SEGMENTED NEUTROPHILS % (AUTO) 72.7 % (42-78); TOTAL CELLS COUNTED % (AUTO) 100 %; WHITE BLOOD COUNT 15.3 10^3/uL (4.0-10.5)
--- NOTE | 2019-12-28 16:08 | ER Document Report ---
ED GI/ - General Chief Complaint: Pelvic Pain Stated Complaint: ABDOMINAL PAIN Time Seen by Provider: 12/28/19 15:31 Primary Care Provider: FABIAN SEQUEIRA ARNP [Primary Care Provider] - Follow up as needed Mode of Arrival: Ambulatory Information source: Patient Notes: 26-year-old female presented to ED for complaint of lower pelvic pain. She states she had a positive test at home. She states she is 5 para 3. She denies any urinary symptoms any vaginal bleeding any vaginal discharge. She states she has not yet had a confirmation of her . While she was in the triage area a urine blood work and ultrasound were ordered. We will follow-up with all these results. TRAVEL OUTSIDE OF THE [place] IN LAST 30 DAYS: No - HPI Patient complains to provider of: Abdominal pain, Pelvic pain Onset: Yesterday Timing/Duration: Gradual, Intermittent Quality of pain: Cramping Severity at maximum: Moderate Severity in ED: Moderate Pain Level: 3 Location: LLQ, RLQ, Pelvis Vaginal bleeding (Compared to normal period): None LMP: September : 5 Para: 3 heart tones (bpm): 168 EDC: 07/28/20 ABO type: O Rh factor: + OB ultrasound done: Yes Associated symptoms: Nausea Exacerbated by: Denies Relieved by: Denies Similar symptoms previously: Yes Recently seen / treated by doctor: No - Related Data Allergies/Adverse Reactions: morphine [Morphine] Allergy (Severe, Verified 10/23/19 19:56) Difficulty breathing/itch shellfish derived Allergy (Severe, Verified 10/23/19 19:56) Anaphylaxis iodine [Iodine] Allergy (Intermediate, Verified 10/23/19 19:56) RASH latex [Latex] Allergy (Intermediate, Verified 10/23/19 19:56) RASH diphenhydramine [From Benadryl] Allergy (Verified 10/23/19 19:56) Past Medical History - General Information source: Patient - Social History Smoking Status: Never Smoker Frequency of alcohol use: None Drug Abuse: None Family History: Reviewed & Not Pertinent, CAD, COPD, CVA, DM, Hyperlipidemia, Hypertension Patient has homicidal ideation: No - Past Medical History Cardiac Medical History: Reports: Hx Hypertension Denies: Hx Heart Attack Pulmonary Medical History: Reports: Hx Asthma - resolved EENT Medical History: Reports: None Neurological Medical History: Reports: Hx Migraine Endocrine Medical History: Reports: None Renal/ Medical History: Reports: Hx Kidney Stones, Hx Pelvic Inflammatory Dis ease Malignancy Medical History: Reports: None GI Medical History: Reports: None Musculoskeletal Medical History: Reports Hx Musculoskeletal Trauma Skin Medical History: Reports None Psychiatric Medical History: Reports: Hx Bipolar Disorder, Hx Depression, Hx Post Traumatic Stress Disorder Traumatic Medical History: Reports: Hx Fractures - Fractured ankle Infectious Medical History: Reports: None Past Surgical History: Reports: Hx Cholecystectomy, Hx Oral Surgery - wisdom tooth removal 07/2016, Hx Orthopedic Surgery - right ankle - Immunizations Immunizations up to date: Yes Hx Diphtheria, Pertussis, Tetanus Vaccination: Yes Review of Systems - Review of Systems Constitutional: No symptoms reported EENT: No symptoms reported Cardiovascular: No symptoms reported Respiratory: No symptoms reported Gastrointestinal: Abdominal pain. denies: Nausea, Vomiting Genitourinary: No symptoms reported Female Genitourinary: , Other - Pelvic pain Musculoskeletal: No symptoms reported Skin: No symptoms reported Hematologic/Lymphatic: No symptoms reported Neurological/Psychological: No symptoms reported Physical Exam - Vital signs Vitals: Temp Pulse Resp BP Pulse Ox 98.2 F 71 16 125/78 100 12/28/19 15:30 12/28/19 15:30 12/28/19 15:30 12/28/19 15:30 12/28/19 15:30 Interpretation: Normal - General General appearance: Appears well, Alert - HEENT Head: Normocephalic, Atraumatic Eyes: Normal Pupils: PERRL - Respiratory Respiratory status: No respiratory distress Chest status: Nontender Breath sounds: Normal Chest palpation: Normal - Cardiovascular Rhythm: Regular Heart sounds: Normal auscultation Murmur: No - Abdominal Inspection: Normal Distension: No distension Bowel sounds: Normal Tenderness: Tender - bilateral pelvic Organomegaly: No organomegaly - Back Back: Normal, Nontender - Extremities General upper extremity: Normal inspection, Nontender, Normal color, Normal ROM, Normal temperature General lower extremity: Normal inspection, Nontender, Normal color, Normal ROM, Normal temperature, Normal weight bearing. No: Rashida's sign - Neurological Neuro grossly intact: Yes Cognition: Normal Orientation: AAOx4 Celi Coma Scale Eye Opening: Spontaneous Ambler Coma Scale Verbal: Oriented Ambler Coma Scale Motor: Obeys Commands Ambler Coma Scale Total: 15 Speech: Normal Motor strength normal: LUE, RUE, LLE, RLE Sensory: Normal - Psychological Associated symptoms: Normal affect, Normal mood - Skin Skin Temperature: Warm Skin Moisture: Dry Skin Color: Normal Course - Re-evaluation Re-evalutation: 12/28/19 17:24 Discussed labs and ultrasound with patient written report of labs and ultrasound given to patient for follow-up with [facility]. She states she has an appointment in less than a week. Patient is alert oriented respirations regular nonlabored speaking in full sentences. She states she has no acute pain at this time. She states she does have some burning pain at times. - Vital Signs Vital signs: Temp Pulse Resp BP Pulse Ox 98.4 F 65 16 118/66 100 12/28/19 17:23 12/28/19 17:23 12/28/19 17:23 12/28/19 17:23 12/28/19 17:23 - Laboratory Result Diagrams: 12/28/19 15:43 12/28/19 15:43 Laboratory results interpreted by me: 12/28/19 12/28/19 12/28/19 15:43 15:43 15:43 WBC 15.3 H Absolute Neuts (auto) 11.1 H Sodium 135.9 L Creatinine 0.50 L Beta HCG, Quant 267547.00 H - Diagnostic Test Radiology reviewed: Image reviewed, Reports reviewed Discharge - Discharge Clinical Impression: Pelvic pain affecting in first trimester, antepartum Condition: Stable Disposition: HOME, SELF-CARE Additional Instructions: Pelvic Pain and Round Ligament Pain Lower abdominal pain during can have many causes. We look for serious causes such as appendicitis, tubal , miscarriage, placental separation, or urinary tract infection. Less serious causes of pain include corpus luteum cyst (ovarian cyst of ) or stretching of the pelvic tissues by the enlarging uterus. Sometimes the pain comes from the bowels. If no specific cause for the pain is found, we attribute the pain to stretching of the uterine ligaments. This is called "round ligament strain." It is not dangerous. Just rest until the pain goes away. Call us or come back for reexamination if any problems occur, such as: (1) Pain that becomes more severe, steady, or becomes concentrated in one specific area. Also, pain that is more severe with movement or coughing. (2) Vomiting that persists or becomes more frequent. (3) Blood in the vomitus, urine, or bowel movements. Blood in the stool may have a tarry or black appearance. (4) Shaking chills or fever greater than 100 degrees. (5) The abdomen becomes more distended or swollen. (6) Bowel movements cease. (7) Vaginal bleeding. Acetaminophen Acetaminophen may be taken for pain relief or fever control. It's much safer than aspirin, offering a wider range of "safe" dosages. It is safe during . Some brand names are Tylenol, Panadol, Datril, Anacin 3, Tempra, and Liquiprin. Acetaminophen can be repeated every four hours. The following are maximum recommended dosages: WEIGHT Dose Drops Elixir Chewable(80 mg) (LBS.) drprs=droppers tsp=teaspoon 6 40 mg .4 ml (1/2) 6-11 80 mg .8 ml (full) 1/2 tsp 1 tab 12-16 120 mg 1 1/2 drprs 3/4 tsp 1 1/2 tabs 17-23 160 mg 2 drprs 1 tsp 2 tabs 24-30 240 mg 3 drprs 1 1/2 tsp 3 tabs 30-35 320 mg 2 tsp 4 tabs 36-41 360 mg 2 1/4 tsp 4 1/2 tabs 42-47 400 mg 2 1/2 tsp 5 tabs 48-53 480 mg 3 tsp 6 tabs 54-59 520 mg 3 1/4 tsp 6 1/2 tabs 60-64 560 mg 3 1/2 tsp 7 tabs 65-70 600 mg 3 3/4 tsp 7 1/2 tabs 71-76 640 mg 4 tsp 8 tabs 77-82 720 mg 4 1/2 tsp 9 tabs 83-88 800 mg 5 tsp 10 tabs >89 pounds or adults 650 mg to 900 mg Acetaminophen can be repeated every four hours. Maximum daily dose not to exceed 4000 mg. These maximum recommended dosages are slightly higher than the dosages written on the product container, but these dosages are very safe and well below the toxic dosage for acetaminophen. Discussed your labs and ultrasound with you and given you written reports of your labs and ultrasound. Please take these with you to the [facility] that you are scheduled to see in about a week. You state you are not having any severe pain at all is just a twisting pain in your lower pelvic area. You are at the gestation where you could have some round ligament pain. Please call your [facility] and give them the results that I have given you and we have also run a GC and chlamydia test. If anything is positive they will be calling you tomorrow. FOLLOW-UP CARE: If you have been referred to a physician for follow-up care, call the [facility] office for an appointment as you were instructed or within the next two days. If you experience worsening or a significant change in your symptoms, notify the physician immediately or return to the Emergency Department at any time for re-evaluation. Forms: Return to Work Referrals: FABIAN SEQUEIRA ARNP [Primary Care Provider] - Follow up as needed
--- NOTE | 2019-12-28 16:31 | RADIOLOGY REPORT (SQ) ---
EXAM DESCRIPTION: U/S [id number] TRNABD 1GES W/ODOP IMAGES COMPLETED DATE/TIME: 12/28/2019 4:09 pm REASON FOR STUDY: pelvic pain COMPARISON: None. TECHNIQUE: Transabdominal static and realtime grayscale images acquired of the pelvis. Additional se lected spectral and color Doppler images recorded. All images stored on PACs. bHCG: Pending. CLINICAL DATES: LMP 09/26/2019. CEDRIC based on LMP 07/02/2020. EGA based on LMP 13 weeks 2 days. LIMITATIONS: None. FINDINGS: FETUS: Single Living intrauterine . ULTRASOUND EGA: 9 weeks 4 days. ULTRASOUND CEDRIC: 07/28/2020. CRL: 2.78 cm. FHR: 168 beats per minute. SURVEY: Too early to assess. AMNIOTIC FLUID: Too early to assess. PLACENTA: Too early to assess. SUBCHORIONIC BLEED: Yes. SIZE OF BLEED: 1.9 x 1.3 x 0.6 cm. UTERUS: The uterus measures 11.1 x 8 x 5.7 cm. CERVICAL LENGTH: 2.5 cm. Closed. RIGHT ADNEXA: The right ovary measures 3.3 x 2 x 2.2 cm and on Doppler there is intact color flow wit hin the ovarian stroma. There is no adnexal mass. LEFT ADNEXA: The left ovary measures 3 x 2.1 x 1.3 cm and on Doppler there is intact color flow withi n the ovarian stroma. There is no adnexal mass. FREE FLUID: None. OTHER: No other finding. IMPRESSION: SINGLE LIVE INTRAUTERINE . EGA 9 weeks 4 days based on ultrasound which is discordant with the EGA based on LMP. Based on ACOG criteria the EGA should be changed to reflect the ultrasound. SUBCHRONIC HEMORRHAGE THAT MEASURES 1.9 X 1.3 X 0.6 CM. Trimester of : First trimester - 0 to 13 weeks. TECHNICAL DOCUMENTATION: JOB ID: [id number] 2010 [employer]- All Rights Reserved rev-01/01 Reading location - IP/workstation name: [email or web address]
[2019-12-28 16:38] LABS: ALKALINE PHOSPHATASE 60 U/L (38-126); ANION GAP 9 (5-19); ASPARTATE AMINO TRANSFERASE 22 U/L (14-36); BILIRUBIN,TOTAL 0.3 mg/dL (0.2-1.3); BLOOD UREA NITROGEN 10 mg/dL (7-20); CALCIUM 9.2 mg/dL (8.4-10.2); CARBON DIOXIDE 25 mmol/L (22-30); CHLORIDE 102 mmol/L (98-107); GLUCOSE 81 mg/dL (75-110); POTASSIUM 4.2 mmol/L (3.6-5.0); TOTAL PROTEIN 6.9 g/dL (6.3-8.2)
[2019-12-28 17:13] LABS: APPEARANCE,URINE SLIGHTLY-CLOUDY; BILIRUBIN,URINE NEGATIVE (NEGATIVE); COLOR,URINE YELLOW; GLUCOSE, URINE NEGATIVE (NEGATIVE); KETONES,URINE NEGATIVE (NEGATIVE); PROTEIN,URINE NEGATIVE (NEGATIVE); URINE SPECIFIC GRAVITY 1.023; UROBILINOGEN,URINE NEGATIVE mg/dL (<2.0)
[2019-12-28 17:24] VITALS: BP 118/66
[2019-12-28 18:42] LABS: CHLAM PCR NOT DETECTED (NOT DETECT)
== END 2019-12-28 17:27 | disposition home or self-care (01) ==
LOC: ER 15:26
DX: O26.891 Other specified pregnancy related conditions, first trimester (principal); R10.2 Pelvic and perineal pain; R10.31 Right lower quadrant pain; R10.32 Left lower quadrant pain; R11.0 Nausea; O16.1 Unspecified maternal hypertension, first trimester; Z88.6 Allergy status to analgesic agent; Z87.892 Personal history of anaphylaxis; Z91.013 Allergy to seafood; Z91.040 Latex allergy status; Z88.8 Allergy status to other drugs, medicaments and biological substances; Z3A.00 Weeks of gestation of pregnancy not specified
CPT/HCPCS: 36415; 76801; 80053; 81001; 84702; 85025; 87491; 87591; 99284

== ENCOUNTER 2020-01-06 12:45 | Emergency (ER) | payer MEDICAID ==
--- NOTE | 2020-01-06 13:12 | ER Document Report ---
ED Medical Screen (RME) - General Chief Complaint: Vaginal Bleeding Stated Complaint: PELVIC PAIN Time Seen by Provider: 01/06/20 13:08 Primary Care Provider: FABIAN SEQUEIRA ARNP [Primary Care Provider] - Follow up as needed Mode of Arrival: Ambulatory Information source: Patient Notes: 29-year-old female approximately 11 weeks G4, P3 presents emergency dep artment with complaints of vaginal bleeding. She reports approximately 1-1/2 hours ago she went to the health department and they did a Pap smear. Patient reports she started bleeding after that. She complains of spotting. She also complains of severe pelvic pain. No other complaints such as fever vomiting diarrhea. I have greeted and performed a rapid initial assessment of this patient. A comprehensive ED assessment and evaluation of the patient, analysis of test results and completion of the medical decision making process will be conducted by additional ED providers. TRAVEL OUTSIDE OF THE [place] IN LAST 30 DAYS: No - Related Data Allergies/Adverse Reactions: morphine [Morphine] Allergy (Severe, Verified 10/23/19 19:56) Difficulty breathing/itch shellfish derived Allergy (Severe, Verified 10/23/19 19:56) Anaphylaxis iodine [Iodine] Allergy (Intermediate, Verified 10/23/19 19:56) RASH latex [Latex] Allergy (Intermediate, Verified 10/23/19 19:56) RASH diphenhydramine [From Benadryl] Allergy (Verified 10/23/19 19:56) Past Medical History - Social History Family history: Reviewed & Not Pertinent, Hypertension, Other - copd - Past Medical History Cardiac Medical History: Reports: Hx Hypertension Denies: Hx Heart Attack Pulmonary Medical History: Reports: Hx Asthma - resolved Denies: Hx Bronchitis, Hx COPD, Hx Pneumonia Neurological Medical History: Reports: Hx Migraine. Denies: Hx Seizures Renal/ Medical History: Reports: Hx Kidney Stones, Hx Pelvic Inflammatory Disease. Denies: Hx Peritoneal Dialysis Musculoskeltal Medical History: Denies Hx Arthritis, Reports Hx Musculoskeletal Trauma Psychiatric Medical History: Reports: Hx Bipolar Disorder, Hx Depression, Hx Post Traumatic Stress Disorder Traumatic Medical History: Reports: Hx Fractures - Fractured ankle Past Surgical History: Reports: Hx Cholecystectomy, Hx Oral Surgery - wisdom tooth removal 07/2016, Hx Orthopedic Surgery - right ankle - Immunizations Immunizations up to date: Yes Hx Diphtheria, Pertussis, Tetanus Vaccination: Yes Physical Exam - Vital signs Vitals: Temp Pulse Resp BP Pulse Ox 99.0 F 92 18 136/83 H 99 01/06/20 12:48 01/06/20 12:48 01/06/20 12:48 01/06/20 12:48 01/06/20 12:48 Course - Vital Signs Vital signs: Temp Pulse Resp BP Pulse Ox 99.0 F 92 18 136/83 H 99 01/06/20 12:48 01/06/20 12:48 01/06/20 12:48 01/06/20 12:48 01/06/20 12:48 Doctor's Discharge - Discharge Referrals: FABIAN SEQUEIRA ARNP [Primary Care Provider] - Follow up as needed
[2020-01-06 13:37] LABS: ABSOLUTE EOSINOPHILS # (AUTO) 0.1 10^3/uL (0.0-0.6); ABSOLUTE LYMPHOCYTES (AUTO) 2.2 10^3/uL (0.5-4.7); ABSOLUTE MONOCYTES (AUTO) 0.9 10^3/uL (0.1-1.4); ABSOLUTE NEUT (AUTO) 8.9 10^3/uL (1.7-8.2); BASOPHILS % (AUTO) 0.1 % (0-2); EOSINOPHILS % (AUTO) 0.8 % (0-6); HEMATOCRIT 36.1 % (36.0-47.0); HEMOGLOBIN 12.5 g/dL (12.0-15.5); LYMPHOCYTES % (AUTO) 18.2 % (13-45); MEAN CORPUSCULAR HEMOGLOBIN 29.9 pg (27.0-33.4); MEAN CORPUSCULAR HGB CONC 34.6 g/dL (32.0-36.0); MEAN CORPUSCULAR VOLUME 86 fl (80-97); MONOCYTES % (AUTO) 7.7 % (3-13); PLATELET COUNT 363 10^3/uL (150-450); RED BLOOD COUNT 4.19 10^6/uL (3.72-5.28); RED CELL DISTRIBUTION WIDTH 13.1 % (11.5-14.0); SEGMENTED NEUTROPHILS % (AUTO) 73.2 % (42-78); TOTAL CELLS COUNTED % (AUTO) 100 %; WHITE BLOOD COUNT 12.2 10^3/uL (4.0-10.5)
[2020-01-06 13:52] LABS: ALBUMIN 3.9 g/dL (3.5-5.0); ALKALINE PHOSPHATASE 63 U/L (38-126); ANION GAP 6 (5-19); ASPARTATE AMINO TRANSFERASE 20 U/L (14-36); BILIRUBIN,TOTAL 0.4 mg/dL (0.2-1.3); BLOOD UREA NITROGEN 6 mg/dL (7-20); CALCIUM 8.9 mg/dL (8.4-10.2); CARBON DIOXIDE 26 mmol/L (22-30); CHLORIDE 103 mmol/L (98-107); GLUCOSE 82 mg/dL (75-110); POTASSIUM 4.1 mmol/L (3.6-5.0); TOTAL PROTEIN 6.9 g/dL (6.3-8.2)
[2020-01-06] MEDS ORDERED: ACETAMINOPHEN 325 MG TABLET PO ONE (14:43)
--- NOTE | 2020-01-06 15:23 | ER Document Report ---
ED GI/ - General Chief Complaint: Vaginal Bleeding Stated Complaint: PELVIC PAIN Time Seen by Provider: 01/06/20 13:08 Primary Care Provider: FABIAN SEQUEIRA ARNP [Primary Care Provider] - Follow up as needed Mode of Arrival: Ambulatory Notes: 29-year-old female who states she is approximately 11 weeks 4 para 3 presents to the emergency room complaining of vaginal bleeding and pelvic pain. Patient states she was at the health department for her OB visit had a Pap smear and started immediately bleeding and having pain after they finished the exam. She is told about the pain and the bleeding they told it was normal. She states the bleeding has stopped but she still having pelvic pain. She denies any current nausea or vomiting. Is concerned about the amount of bl eeding that she had and the pelvic pain. States this did not happen with any of her previous pregnancies. No medications for pain. TRAVEL OUTSIDE OF THE [place] IN LAST 30 DAYS: No - Related Data Allergies/Adverse Reactions: morphine [Morphine] Allergy (Severe, Verified 10/23/19 19:56) Difficulty breathing/itch shellfish derived Allergy (Severe, Verified 10/23/19 19:56) Anaphylaxis iodine [Iodine] Allergy (Intermediate, Verified 10/23/19 19:56) RASH latex [Latex] Allergy (Intermediate, Verified 10/23/19 19:56) RASH diphenhydramine [From Benadryl] Allergy (Verified 10/23/19 19:56) verapamil Allergy (Verified 01/06/20 13:12) Tachycardia Home Medications: Labetalol. Pepcid Past Medical History - General Information source: Patient - Social History Smoking Status: Former Smoker Frequency of alcohol use: None Drug Abuse: None Family History: Reviewed & Not Pertinent, CAD, COPD, CVA, DM, Hyperlipidemia, Hypertension Patient has homicidal ideation: No - Past Medical History Cardiac Medical History: Reports: Hx Hypertension Denies: Hx Heart Attack Pulmonary Medical History: Reports: Hx Asthma - resolved Denies: Hx Bronchitis, Hx COPD, Hx Pneumonia Neurological Medical History: Reports: Hx Migraine. Denies: Hx Seizures Renal/ Medical History: Reports: Hx Kidney Stones, Hx Pelvic Inflammatory Disease. Denies: Hx Peritoneal Dialysis Musculoskeletal Medical History: Denies Hx Arthritis, Reports Hx Musculoskeletal Trauma Psychiatric Medical History: Reports: Hx Bipolar Disorder, Hx Depression, Hx Post Traumatic Stress Disorder Traumatic Medical History: Reports: Hx Fractures - Fractured ankle Past Surgical History: Reports: Hx Cholecystectomy, Hx Oral Surgery - wisdom tooth removal 07/2016, Hx Orthopedic Surgery - right ankle - Immunizations Immunizations up to date: Yes Hx Diphtheria, Pertussis, Tetanus Vaccination: Yes Review of Systems - Review of Systems Constitutional: No symptoms reported EENT: No symptoms reported Cardiovascular: No symptoms reported Respiratory: No symptoms reported Gastrointestinal: denies: Nausea, Vomiting Female Genitourinary: , Vaginal bleeding, Other - Pelvic pain Musculoskeletal: No symptoms reported Hematologic/Lymphatic: No symptoms reported Neurological/Psychological: No symptoms reported -: Yes All other systems reviewed and negative Physical Exam - Vital signs Vitals: Temp Pulse Resp BP Pulse Ox 99.0 F 92 18 136/83 H 99 01/06/20 12:48 01/06/20 12:48 01/06/20 12:48 01/06/20 12:48 01/06/20 12:48 - General General appearance: Appears well, Alert In distress: Mild - HEENT Head: Normocephalic, Atraumatic Eyes: Normal Pupils: PERRL - Respiratory Respiratory status: No respiratory distress Chest status: Nontender Breath sounds: Normal Chest palpation: Normal - Cardiovascular Rhythm: Regular Heart sounds: Normal auscultation Murmur: No - Abdominal Inspection: Normal Distension: No distension Bowel sounds: Normal Tenderness: Nontender Organomegaly: No organomegaly - Genitourinary Notes: Patient refused - Back Back: Normal, Nontender - Skin Skin Temperature: Warm Skin Moisture: Dry Skin Color: Normal Course - Re-evaluation Re-evalutation: 01/06/20 16:25 Patient is resting comfortably she is pain-free on exam. No active bleeding noted. Reviewed lab and ultrasound results with patient. Discussed with patient that the subchorionic bleed that was noted on her previous ultrasound has resolved. Which may be related to the bleeding she had during her pelvic exam counseled take Tylenol as needed for pain. Outpatient follow-up with OB as scheduled. She was given strict return to the emergency room guidelines. She is to return for any new or worsening symptoms. All questions were answered. Patient verbalized understanding and agrees with plan of care. 01/06/20 17:20 - Vital Signs Vital signs: Temp Pulse Resp BP Pulse Ox 97.8 F 72 16 124/78 100 01/06/20 16:37 01/06/20 16:37 01/06/20 16:37 01/06/20 16:37 01/06/20 16:37 - Laboratory Result Diagrams: 01/06/20 13:20 01/06/20 13:20 Laboratory results interpreted by me: 01/06/20 01/06/20 01/06/20 13:20 13:20 13:20 WBC 12.2 H Absolute Neuts (auto) 8.9 H Sodium 135.4 L BUN 6 L Beta HCG, Quant [id number] H - Diagnostic Test Radiology reviewed: Reports reviewed Discharge - Discharge Clinical Impression: Pelvic pain during , Threatened Condition: Stable Disposition: HOME, SELF-CARE Instructions: Acetaminophen, Bleeding During Early ([facility]), Pelvic Pain in ([facility]), Threatened Miscarriage ([facility]) Additional Instructions: Tylenol as needed for pain. Follow-up with OB as scheduled. Return for any new or worsening symptoms. Referrals: FABIAN SEQUEIRA ARNP [Primary Care Provider] - Follow up as needed
--- NOTE | 2020-01-06 16:06 | RADIOLOGY REPORT (SQ) ---
EXAM DESCRIPTION: U/S OB TRANSVAG W/DOPPLER IMAGES COMPLETED DATE/TIME: 01/06/2020 3:55 pm REASON FOR STUDY: pain/bleeding COMPARISON: None. TECHNIQUE: Transabdominal static and realtime grayscale images acquired of the pelvis. Additional se lected spectral and color Doppler images recorded. All images stored on PACs. bHC,230 CLINICAL DATES: 10 weeks 6 days. LIMITATIONS: None. FINDINGS: FETUS: Single Living intrauterine . ULTRASOUND EGA: 10 weeks 5 days. ULTRASOUND CEDRIC: 07/29/2020 EFW: Not applicable less than 20 weeks. CRL: 3.8 cm. FHR: 155 beats per minute. SURVEY: No visualized anomalies. AMNIOTIC FLUID: Adequate amount. PLACENTA: Not yet developed due to early gestation. SUBCHORIONIC BLEED: No. SIZE OF BLEED: Not applicable. UTERUS: No masses. No anomalies. CERVICAL LENGTH: 3.5 cm. Closed. RIGHT ADNEXA: Normal ovary with normal vascular flow. No adnexal free fluid. No adnexal masses. LEFT ADNEXA: Ovary not identified due to poor acoustical window. No adnexal free fluid. No adnexal masses. FREE FLUID: None. OTHER: No other significant finding. IMPRESSION: LIVING INTRAUTERINE . EGA 10 WEEKS 5 DAYS. Trimester of : First trimester - 0 to 13 weeks. TECHNICAL DOCUMENTATION: JOB ID: [id number] 2010 [employer]- All Rights Reserved Reading location - IP/workstation name: [email or web address]
[2020-01-06 16:38] VITALS: BP 124/78
== END 2020-01-06 16:40 | disposition home or self-care (01) ==
LOC: ER 12:45
DX: O20.0 Threatened abortion (principal); O26.891 Other specified pregnancy related conditions, first trimester; R10.2 Pelvic and perineal pain; O16.1 Unspecified maternal hypertension, first trimester; Z3A.11 11 weeks gestation of pregnancy; Z88.8 Allergy status to other drugs, medicaments and biological substances; Z79.899 Other long term (current) drug therapy; Z87.891 Personal history of nicotine dependence; O99.511 Diseases of the respiratory system complicating pregnancy, first trimester; J45.909 Unspecified asthma, uncomplicated; Z87.442 Personal history of urinary calculi
CPT/HCPCS: 99284; 86900; 86901; 36415; 84702; 85025; 80053; 76817; 93976; J3490

== ENCOUNTER 2020-01-26 15:40 | Emergency (ER) | payer MEDICAID ==
[2020-01-26] MEDS ORDERED: LIDOCAINE 2% VISCOUS SOLN 15 ML UDCUP PO ONE (15:50)
[2020-01-26] MEDS ORDERED: CLINDAMYCIN HCL 150 MG CAPSULE PO ONE (15:50)
[2020-01-26 15:53] VITALS: BP 122/78
--- NOTE | 2020-01-26 15:54 | ER Document Report ---
ED Oral Problem - General Chief Complaint: Toothache Stated Complaint: TOOTHACHE Time Seen by Provider: 01/26/20 15:46 Primary Care Provider: FABIAN SEQUEIRA ARNP [Primary Care Provider] - Follow up as needed Mode of Arrival: Ambulatory Information source: Patient Notes: 29-year-old female presented to ED for dental pain to tooth #17. She states she went to her dentist office and they would not touch her because she is 14 weeks . They states they were not treated her teeth while she was . She states for she went to her primary care doctor they gave her some Tessalon Perles and told her to take that and her tooth and did not give her any antib iotics then she went to the dentist and they told her they could not treat her and they did not give her any antibiotics and sent her to the emergency room. She states that the tooth chipped and broke off a piece of it yesterday and she has been having pain today. TRAVEL OUTSIDE OF THE [place] IN LAST 30 DAYS: No - HPI Patient complains to provider of: Toothache Onset: This morning Onset: Gradual Quality of pain: Sharp, Throbbing Severity: Moderate Pain Level: 3 Associated symptoms: Toothache Worsened by: Cold Relieved by: Nothing Similar symptoms previously: Yes Recently seen / treated by doctor/dentist: Yes - Related Data Allergies/Adverse Reactions: morphine [Morphine] Allergy (Severe, Verified 10/23/19 19:56) Difficulty breathing/itch shellfish derived Allergy (Severe, Verified 10/23/19 19:56) Anaphylaxis iodine [Iodine] Allergy (Intermediate, Verified 10/23/19 19:56) RASH latex [Latex] Allergy (Intermediate, Verified 10/23/19 19:56) RASH diphenhydramine [From Benadryl] Allergy (Verified 10/23/19 19:56) verapamil Allergy (Verified 01/06/20 13:12) Tachycardia Home Medications: labetalol Past Medical History - General Information source: Patient - Social History Smoking Status: Former Smoker Frequency of alcohol use: None Drug Abuse: None Lives with: Family Family History: Reviewed & Not Pertinent, CAD, COPD, CVA, DM, Hyperlipidemia, Hypertension Patient has homicidal ideation: No - Past Medical History Cardiac Medical History: Reports: Hx Hypertension Pulmonary Medical History: Reports: Hx Asthma - resolved EENT Medical History: Reports: None Neurological Medical History: Reports: Hx Migraine Endocrine Medical History: Reports: None Renal/ Medical History: Reports: Hx Kidney Stones, Hx Pelvic Inflammatory Disease, Other - Preeclampsia Malignancy Medical History: Reports: None GI Medical History: Reports: None Musculoskeletal Medical History: Reports Hx Musculoskeletal Trauma Skin Medical History: Reports None Psychiatric Medical History: Reports: Hx Bipolar Disorder, Hx Depression, Hx Post Traumatic Stress Disorder Traumatic Medical History: Reports: Hx Fractures - Fractured ankle Infectious Medical History: Reports: None Past Surgical History: Reports: Hx Cholecystectomy, Hx Oral Surgery - wisdom tooth removal 07/2016, Hx Orthopedic Surgery - right ankle - Immunizations Immunizations up to date: Yes Hx Diphtheria, Pertussis, Tetanus Vaccination: Yes Review of Systems - Review of Systems Constitutional: No symptoms reported EENT: Mouth pain, Dental problem Cardiovascular: No symptoms reported Respiratory: No symptoms reported Gastrointestinal: No symptoms reported Genitourinary: No symptoms reported Female Genitourinary: No symptoms reported Musculoskeletal: No symptoms reported Skin: No symptoms reported Hematologic/Lymphatic: No symptoms reported Neurological/Psychological: No symptoms reported Physical Exam - Vital signs Vitals: Temp 97.9 F 01/26/20 15:48 Interpretation: Normal - General General appearance: Appears well, Alert - HEENT Head: Normocephalic, Atraumatic Eyes: Normal Pupils: PERRL Teeth diagram: 1 - Large cavity with part of the tooth broken away Pharynx: Normal Neck: Normal - Respiratory Respiratory status: No respiratory distress Chest status: Nontender Breath sounds: Normal Chest palpation: Normal - Cardiovascular Rhythm: Regular Heart sounds: Normal auscultation Murmur: No - Abdominal Inspection: Normal Distension: No distension Bowel sounds: Normal Tenderness: Nontender Organomegaly: No organomegaly - Back Back: Normal, Nontender - Extremities General upper extremity: Normal inspection, Nontender, Normal color, Normal ROM, Normal temperature General lower extremity: Normal inspection, Nontender, Normal color, Normal ROM, Normal temperature, Normal weight bearing. No: Rashida's sign - Neurological Neuro grossly intact: Yes Cognition: Normal Orientation: AAOx4 Celi Coma Scale Eye Opening: Spontaneous [place] Coma Scale Verbal: Oriented Celi Coma Scale Motor: Obeys Commands Celi Coma Scale Total: 15 Speech: Normal Motor strength normal: LUE, RUE, LLE, RLE Sensory: Normal - Psychological Associated symptoms: Normal affect, Normal mood - Skin Skin Temperature: Warm Skin Moisture: Dry Skin Color: Normal Course - Re-evaluation Re-evalutation: 01/26/20 15:57 Patient was seen today for dental pain and is 14 weeks . She went to her primary care doctor for pain with a broken tooth. Primary care gave her Miguel Angel Gillespie and sent her to the dentist. Dentist told her they could not treat her because she is 14 weeks sent her to the emergency room. Patient was treated with clindamycin in the ED as she is allergic to penicillin and viscous lidocaine for the pain and instructed to follow-up with her primary care doctor. Patient verbalized understanding and agreement treatment plan and she will be discharged home. - Vital Signs Vital signs: Temp Pulse Resp BP Pulse Ox 97.9 F 91 18 122/78 100 01/26/20 15:48 01/26/20 15:53 01/26/20 15:53 01/26/20 15:53 01/26/20 15:53 Discharge - Discharge Clinical Impression: Pain due to dental caries Condition: Stable Disposition: HOME, SELF-CARE Additional Instructions: TOOTHACHE: Your pain is due to dental decay. The tooth must be repaired in order for you to feel better. You will, therefore, be referred to a dentist. We do not have dentists on the staff at [facility]. Severe swelling or drainage around a tooth usually means a dental abscess. This also requires evaluation and treatment by the dentist, but antibiotics may be prescribed while awaiting dental treatment. You should be rechecked immediately if you develop major swelling of the face, increasing pain, a lump in the jaw or gums, headache, difficulty s wallowing, or fever. Acetaminophen Acetaminophen may be taken for pain relief or fever control. It's much safer than aspirin, offering a wider range of "safe" dosages. It is safe during . Some brand names are Tylenol, Panadol, Datril, Anacin 3, Tempra, and Liquiprin. Acetaminophen can be repeated every four hours. The following are maximum recommended dosages: WEIGHT Dose Drops Elixir Chewable(80mg) (LBS.) drprs=droppers tsp=teaspoon 6 40 mg .4 ml (1/2) 6-11 80 mg .8 ml (full) 1/2 tsp 1 tab 12-16 120 mg 1 1/2 drprs 3/4 tsp 1 1/2 tabs 17-23 160 mg 2 drprs 1 tsp 2 tabs 24-30 240 mg 3 drprs 1 1/2 tsp 3 tabs 30-35 320 mg 2 tsp 4 tabs 36-41 360 mg 2 1/4 tsp 4 1/2 tabs 42-47 400 mg 2 1/2 tsp 5 tabs 48-53 480 mg 3 tsp 6 tabs 54-59 520 mg 3 1/4 tsp 6 1/2 tabs 60-64 560 mg 3 1/2 tsp 7 tabs 65-70 600 mg 3 3/4 tsp 7 1/2 tabs 71-76 640 mg 4 tsp 8 tabs 77-82 720 mg 4 1/2 tsp 9 tabs 83-88 800 mg 5 tsp 10 tabs >89 pounds or adults 650 mg to 900 mg Acetaminophen can be repeated every four hours. Maximum daily dose not to exceed 4000 mg. These maximum recommended dosages are slightly higher than the dosages written on the product container, but these dosages are very safe and well below the toxic dosage for acetaminophen. I have given you a syringe of viscous lidocaine. Please please place a small amount on your finger and apply it to the tooth and gums when you are having pain. You can do this every 4 hours as needed for pain. Do not do more often than every 4 hours. CLINDAMYCIN: You have been given a prescription for the antibiotic clindamycin. It is often prescribed for infections in the mouth, such as dental infections or abscesses, and for skin infections due to MRSA. It's important that you take all the medication, unless instructed otherwise by your physician. Failure to complete the entire course can result in relapse of your condition. Common side effects of antibiotics include nausea, intestinal cramping, or diarrhea. Women may develop vaginal yeast infections, and babies can get yeast (thrush) in the mouth following the use of antibiotics. Contact your physician if you develop significant side effects from this medication. Allergy to this antibiotic can result in hives, wheezing, faintness, or itching. If symptoms of allergy occur, stop the medication and call the doctor. FOLLOW-UP CARE: You have been referred for follow-up care to the dentists listed below. Call the dentists office for an appointment as you were instructed or within the next two days. If you experience worsening or a significant change in your symptoms, notify the physician immediately or return to the Emergency Department at any time for re-evaluation. [facility] [address] [place] [address] [facility] [address] [facility] [address] [facility] ([facility] [address] [facility] [email or web address] [address] [place] [address] Thursday- 8:00am to 5:00 pm Will see patients from other [facility]. Charges based on income and family size and accepts Medicare, Medicaid, and Insurances Will pull molars [facility] [id number] Hours of Operation 8:00 am - 4:30 pm weekdays The following dental offices accept Medicaid: [facility] Dr. Velez Dr. Venegas Dr. Polanco Dr. Arredondo Jose Lam Lutsavage, and [facility] Dr. Melvin ([place]) Dr. Alvarez ([place]) [facility] Drs. Kunz and Pascual ([place]) Dr. Soto ([place]) [facility] Dr. Spencer ([place]) Drs. Thorpe and ([place]) Medicaid Care Line Prescriptions: Clindamycin HCl [Cleocin HCl] 150 mg PO Q6 #28 capsule Forms: Elevated Blood Pressure Referrals: FABIAN SEQUEIRA ARNP [Primary Care Provider] - Follow up as needed
== END 2020-01-26 16:03 | disposition home or self-care (01) ==
LOC: ER 15:40
DX: O99.612 Diseases of the digestive system complicating pregnancy, second trimester (principal); K02.9 Dental caries, unspecified; K08.89 Other specified disorders of teeth and supporting structures; O16.2 Unspecified maternal hypertension, second trimester; Z79.899 Other long term (current) drug therapy; Z3A.14 14 weeks gestation of pregnancy; Z88.6 Allergy status to analgesic agent; Z88.5 Allergy status to narcotic agent; Z87.892 Personal history of anaphylaxis; Z91.013 Allergy to seafood; Z91.040 Latex allergy status; Z88.8 Allergy status to other drugs, medicaments and biological substances; Z88.0 Allergy status to penicillin
CPT/HCPCS: 99282; J3490 ×2

== ENCOUNTER 2020-02-10 20:06 | Emergency (ER) | payer MEDICAID ==
[2020-02-10 20:37] VITALS: BP 136/87
--- NOTE | 2020-02-10 21:19 | ER Document Report ---
HPI - HPI Time Seen by Provider: 02/10/20 21:00 Notes: 14-week-old female presents to the emergency room for left upper and lower dental pain she states from vomiting so much related to her . Patient was recently seen on January 25 for lower dental infection, she was placed on cl indamycin. Patient states that she finished the course without any issues. States that she is not been seen by dentist because they "will not see me because I am ". Patient states that she broke her upper tooth on the left. Denies any fevers or chills. Has not tried any [id number] medications. Denies fevers, chills, chest pain,palpitations, shortness of breath, dyspnea, nausea, vomiting, diarrhea, abdominal pain, hematuria,blurred vision, double vision, loss of vision, speech changes, LH, dizziness, syncope, headaches, wheezing, ST, URI, neck pain, weakness, bowel or bladder dysfunction, saddle anesthesia, numbness or tingling in bilateral upper or lower extremities equally, muscle paralysis, weakness in bilateral upper or lower extremities equally or rash. MEDICATIONS: I agree with the patient medications as charted by the RN. ALLERGIES: I agree with the allergies as charted by the RN. PAST MEDICAL HISTORY/PAST SURGICAL HISTORY: Reviewed and agree as charted by RN. SOCIAL HISTORY: Reviewed and agree as charted by RN. FAMILY HISTORY: No significant familial comorbid conditions directly related to patient complaint EXAM: Reviewed vital signs as charted by RN. REVIEW OF SYSTEMS:reviewed vital signs by RN CONSTITUTIONAL : Denies fever, chills, or sweats. Denies recent illness. EENT: Denies eye, ear, throat, or mouth pain or symptoms. Denies nasal or sinus congestion or discharge. Denies throat, tongue, or mouth swelling or difficulty swallowing. reports dental pain CARDIOVASCULAR: Denies chest pain. Denies palpitations or racing or irregular heart beat. Denies ankle edema. RESPIRATORY: Denies cough, cold, or chest congestion. Denies shortness of breath, difficulty breathing, or wheezing. GASTROINTESTINAL: Denies abdominal pain or distention. Denies nausea, vomiting, or diarrhea. Denies blood in vomitus, stools, or per rectum. Denies black, tarry stools. Denies constipation. GENITOURINARY: Denies difficulty urinating, painful urination, burning, frequency, blood in urine, or discharge. FEMALE GENITOURINARY: Denies vaginal bleeding, heavy or abnormal periods, irregular periods. Denies vaginal discharge or odor. MUSCULOSKELETAL: Denies back or neck pain or stiffness. Denies joint pain or swelling. SKIN: Denies rash, lesions or sores. HEMATOLOGIC : Denies easy bruising or bleeding. LYMPHATIC: Denies swollen, enlarged glands. NEUROLOGICAL: Denies confusion or altered mental status. Denies passing out or loss of consciousness. Denies dizziness or lightheadedness. Denies headache. Denies weakness or paralysis or loss of use of either side. Denies problems with gait or speech. Denies sensory loss, numbness, or tingling. Denies seizures. PSYCHIATRIC: Denies anxiety or stress. Denies depression, suicidal ideation, or homicidal ideation. ALL OTHER SYSTEMS REVIEWED AND NEGATIVE. PHYSICAL EXAMINATION: GENERAL: Well-appearing, well-nourished and in no acute distress. HEAD: Atraumatic, normocephalic. EYES: Pupils equal round and reactive to light, extraocular movements intact, conjunctiva are normal. ENT: Nares patent, oropharynx clear without exudates. Moist mucous membranes. TM with effusion bilaterally, no erythema. TMs intact. #15 and #18 with fractured tooth, gingival swelling, scant erythema and induration. No drainage or open wounds. No fluctuance. No facial swelling. Poor oral dentition, lower left jaw with multiple dental caries, no definite swelling or effusion. no trismus noted. Uvula is midline NECK: Normal range of motion, supple without lymphadenopathy LUNGS: Breath sounds clear to auscultation bilaterally and equal. No wheezes rales or rhonchi. HEART: Regular rate and rhythm without murmurs ABDOMEN: Soft, nontender, nondistended abdomen. No guarding, no rebound. No masses appreciated. Female : deferred Musculoskeletal: Normal range of motion, no pitting or edema. No cyanosis. NEUROLOGICAL: Cranial nerves grossly intact. Normal speech, normal gait. Normal sensory, motor exams PSYCH: Normal mood, normal affect. SKIN: Warm, Dry, normal turgor, no rashes or lesions noted. Dictation was performed using [employer] voice recognition software - REPRODUCTIVE Reproductive: REPORTS: : Past Medical History - General Information source: Patient - Social History Smoking Status: Unknown if Ever Smoked Family History: Reviewed & Not Pertinent, CAD, COPD, CVA, DM, Hyperlipidemia, Hypertension - Past Medical History Cardiac Medical History: Reports: Hx Hypertension Denies: Hx Heart Attack Pulmonary Medical History: Reports: Hx Asthma - resolved Denies: Hx Bronchitis, Hx COPD, Hx Pneumonia Neurological Medical History: Reports: Hx Migraine. Denies: Hx Seizures Renal/ Medical History: Reports: Hx Kidney Stones, Hx Pelvic Inflammatory Disease. Denies: Hx Peritoneal Dialysis Musculoskeletal Medical History: Denies Hx Arthritis, Reports Hx Musculoskeletal Trauma Psychiatric Medical History: Reports: Hx Bipolar Disorder, Hx Depression, Hx Post Traumatic Stress Disorder Traumatic Medical History: Reports: Hx Fractures - Fractured ankle Past Surgical History: Reports: Hx Cholecystectomy, Hx Oral Surgery - wisdom tooth removal 07/2016, Hx Orthopedic Surgery - right ankle - Immunizations Immunizations up to date: Yes Hx Diphtheria, Pertussis, Tetanus Vaccination: Yes Vertical Provider Document - CONSTITUTIONAL Agree With Documented VS: Yes Exam Limitations: No Limitations - INFECTION CONTROL TRAVEL OUTSIDE OF THE [place] IN LAST 30 DAYS: No Course - Re-evaluation Re-evalutation: 02/10/20 21:19 Afebrile vital stable no distress. Nurses notes reviewed. Advised to take azithromycin due to penicillin allergy. Advised to follow-up with dentist. Advised to continue taking prenatals. Follow a soft bland diet, chew on the other side of her mouth. After performing a Medical Screening Examination, I estimate there is LOW risk for a DEEP SPACE INFECTION (e.g., MOON'S ANGINA OR RETROPHARYNGEAL ABSCESS), MENINGITIS, INTRACRANIAL HEMORRHAGE, or AIRWAY COMPROMISE, thus I consider the discharge disposition reasonable. Also, there is no evidence or peritonitis, sepsis, or toxicity. I have reevaluated this patient multiple times and no significant life threatening changes are noted. The patient and I have discussed the diagnosis and risks, and we agree with discharging home with close follow-up with the understanding that symptoms and presentations can change. We also discussed returning to the Emergency Department immediately if new or worsening symptoms occur. We have discussed the symptoms which are most concerning (e.g., changing or worsening pain, trouble swallowing or breathing, neck stiffness or fever) that necessitate immediate return. - Vital Signs Vital signs: Temp Pulse Resp BP Pulse Ox 99.5 F 92 20 136/87 H 100 02/10/20 20:36 02/10/20 20:36 02/10/20 20:36 02/10/20 20:36 02/10/20 20:36 Discharge - Discharge Clinical Impression: , Dental caries Condition: Stable Disposition: HOME, SELF-CARE Instructions: Azithromycin ([facility]), [facility], Dentist, ([facility]), Toothache ([facility]) Additional Instructions: Follow a soft diet, chew on the other side of your mouth, follow-up with a dentist to see if they will extracted tooth after course of antibiotics. Please take your prenatals as directed. Follow-up with your WIRE [employer]IPPER and your dentist within the next 24 to 48 hours. Return immediately for any new or worsening symptoms. Follow up with primary care provider, call tomorrow to make followup appointment. Prescriptions: Azithromycin [Zithromax] 250 mg PO DAILY 5 Days #6 tablet Referrals: FABIAN SEQUEIRA ARNP [Primary Care Provider] - Follow up as needed ENRIQUE DEY MD [ACTIVE STAFF] - Follow up as needed
== END 2020-02-10 21:25 | disposition home or self-care (01) ==
LOC: ER 20:06
DX: O26.92 Pregnancy related conditions, unspecified, second trimester (principal); K02.9 Dental caries, unspecified; Z3A.14 14 weeks gestation of pregnancy; Z88.0 Allergy status to penicillin
CPT/HCPCS: 99282

== ENCOUNTER 2020-02-29 18:52 | Emergency (ER) | payer MEDICAID ==
[2020-02-29 19:06] VITALS: BP 134/91
[2020-02-29] MEDS ORDERED: LIDOCAINE 2% VISCOUS SOLN 15 ML UDCUP PO ONE (19:07)
--- NOTE | 2020-02-29 19:08 | ER Document Report ---
ED Oral Problem - General Chief Complaint: Toothache Stated Complaint: TOOTH PAIN/FACIAL PAIN Time Seen by Provider: 02/29/20 18:57 Primary Care Provider: JOANN CHADWICK DDS [ACTIVE STAFF] - Follow up as needed FABIAN SEQUEIRA ARNP [Primary Care Provider] - Follow up as needed Mode of Arrival: Ambulatory Information source: Patient Notes: 29-year-old female presented to ED for dental pain to the back lower jaw. She states that she has a oral surgeon appointment on 12 March to surgically remove this tooth. She states she has an appointment with Dr. Chadwick. She states her [employer] is aware that she has this appointment. She is at this time. She states that she does have a history of preeclampsia removal of her gallbladder and surgery on her right ankle for tendon repair. Patient is alert oriented respirations regular nonlabored speaking in full sentences. There is no swelling to the area around the tooth. TRAVEL OUTSIDE OF THE [place] IN LAST 30 DAYS: No - HPI Patient complains to provider of: Toothache Onset: Other Onset: Gradual - Chronic worse for the last couple days Quality of pain: Sharp, Throbbing Severity: Severe Pain Level: 5 Associated symptoms: Toothache Worsened by: Cold Relieved by: Nothing Similar symptoms previously: Yes Recently seen / treated by doctor/dentist: Yes - Related Data Allergies/Adverse Reactions: morphine [Morphine] Allergy (Severe, Verified 10/23/19 19:56) Difficulty breathing/itch shellfish derived Allergy (Severe, Verified 10/23/19 19:56) Anaphylaxis iodine [Iodine] Allergy (Intermediate, Verified 10/23/19 19:56) RASH latex [Latex] Allergy (Intermediate, Verified 10/23/19 19:56) RASH diphenhydramine [From Benadryl] Allergy (Verified 10/23/19 19:56) verapamil Allergy (Verified 01/06/20 13:12) Tachycardia Past Medical History - General Information source: Patient - Social History Smoking Status: Never Smoker Frequency of alcohol use: None Drug Abuse: None Lives with: Family Family History: Reviewed & Not Pertinent, CAD, COPD, CVA, DM, Hyperlipidemia, Hypertension - Past Medical History Cardiac Medical History: Reports: Hx Hypertension Pulmonary Medical History: Reports: Hx Asthma - resolved EENT Medical History: Reports: None Neurological Medical History: Reports: Hx Migraine Endocrine Medical History: Reports: None Renal/ Medical History: Reports: Hx Kidney Stones, Hx Pelvic Inflammatory Disease Malignancy Medical History: Reports: None GI Medical History: Reports: None Musculoskeletal Medical History: Reports Hx Musculoskeletal Trauma Skin Medical History: Reports None Psychiatric Medical History: Reports: Hx Bipolar Disorder, Hx Depression, Hx Post Traumatic Stress Disorder Traumatic Medical History: Reports: Hx Fractures - Fractured ankle Past Surgical History: Reports: Hx Cholecystectomy, Hx Oral Surgery - wisdom tooth removal 07/2016, Hx Orthopedic Surgery - right ankle - Immunizations Immunizations up to date: Yes Hx Diphtheria, Pertussis, Tetanus Vaccination: Yes Review of Systems - Review of Systems Constitutional: No symptoms reported EENT: Mouth pain, Dental problem Cardiovascular: No symptoms reported Respiratory: No symptoms reported Gastrointestinal: No symptoms reported Genitourinary: No symptoms reported Female Genitourinary: No symptoms reported Musculoskeletal: No symptoms reported Skin: No symptoms reported Hematologic/Lymphatic: No symptoms reported Neurological/Psychological: No symptoms reported -: Yes All other systems reviewed and negative Physical Exam - Vital signs Vitals: Temp 99.3 F 02/29/20 18:57 Interpretation: Normal - General General appearance: Appears well, Alert - HEENT Head: Normocephalic, Atraumatic Eyes: Normal Pupils: PERRL Ears: Normal External canal: Normal Tympanic membrane: Normal Sinus: Normal Nasal: Normal Mouth/Lips: Caries Teeth diagram: 1 - Severe tenderness. She states that the dentist told her that the tooth is all shattered and has to come out. Pharynx: Normal Neck: Normal - Respiratory Respiratory status: No respiratory distress Chest status: Nontender Breath sounds: Normal Chest palpation: Normal - Cardiovascular Rhythm: Regular Heart sounds: Normal auscultation Murmur: No - Abdominal Inspection: Normal Distension: No distension Bowel sounds: Normal Tenderness: Nontender Organomegaly: No organomegaly - Back Back: Normal, Nontender - Extremities General upper extremity: Normal inspection, Nontender, Normal color, Normal ROM, Normal temperature General lower extremity: Normal inspection, Nontender, Normal color, Normal ROM, Normal temperature, Normal weight bearing. No: Rashida's sign - Neurological Neuro grossly intact: Yes Cognition: Normal Orientation: AAOx4 Red Bud Coma Scale Eye Opening: Spontaneous Red Bud Coma Scale Verbal: Oriented Celi Coma Scale Motor: Obeys Commands Celi Coma Scale Total: 15 Speech: Normal Motor strength normal: LUE, RUE, LLE, RLE Sensory: Normal - Psychological Associated symptoms: Normal affect, Normal mood - Skin Skin Temperature: Warm Skin Moisture: Dry Skin Color: Normal Course - Re-evaluation Re-evalutation: 02/29/20 19:11 Presentation is most consistent with likely an infected tooth. Airway is patent. Vitals within normal limits. Patient is able swallow without any difficulty. There is no significant facial swelling. No evidence of Aaron angina, apical abscess, or airway obstruction. Patient will be started on antibiotics. I've instructed to follow-up with dentistry as earliest ability for definitive management. At this time will discharge with return precautions and follow-up recommendations. Verbal discharge instructions given a the bedside and opportunity for questions given. Medication warnings reviewed. Patient is in agreement with this plan and has verbalized understanding of return precautions and the need for primary care follow-up in the next 24-72 hours. - Vital Signs Vital signs: Temp Pulse Resp BP Pulse Ox 99.3 F 91 18 134/91 H 100 02/29/20 19:04 02/29/20 19:04 02/29/20 19:04 02/29/20 19:04 02/29/20 19:04 Discharge - Discharge Clinical Impression: Pain due to dental caries Condition: Stable Disposition: HOME, SELF-CARE Additional Instructions: TOOTHACHE: Your pain is due to dental decay. The tooth must be repaired in order for you to feel better. You will, therefore, be referred to a dentist. We do not have dentists on the staff at [facility]. Severe swelling or drainage around a tooth usually means a dental abscess. This also requires evaluation and treatment by the dentist, but antibiotics may be prescribed while awaiting dental treatment. You should be rechecked immediately if you develop major swelling of the face, increasing pain, a lump in the jaw or gums, headache, difficulty swallowing, or fever. CLINDAMYCIN: You have been given a prescription for the antibiotic clindamycin. It is often prescribed for infections in the mouth, such as dental infections or abscesses, and for skin infections due to MRSA. It's important that you take all the medication, unless instructed otherwise by your physician. Failure to complete the entire course can result in relapse of your condition. Common side effects of antibiotics include nausea, intestinal cramping, or diarrhea. Women may develop vaginal yeast infections, and babies can get yeast (thrush) in the mouth following the use of antibiotics. Contact your physician if you develop significant side effects from this medication. Allergy to this antibiotic can result in hives, wheezing, faintness, or it arsen. If symptoms of allergy occur, stop the medication and call the doctor. You have been given a syringe of viscous lidocaine. Please place a small amount on your finger and apply it to the tooth and gums that are painful. Please do not do this any more often than 4 hours. If you do it more often than 4 hours you will erode the skin on your gums and actually make your pain much worse. Do not overmedicate. Acetaminophen Acetaminophen may be taken for pain relief or fever control. It's much safer than aspirin, offering a wider range of "safe" dosages. It is safe during . Some brand names are Tylenol, Panadol, Datril, Anacin 3, Tempra, and Liquiprin. Acetaminophen can be repeated every four hours. The following are maximum recommended dosages: WEIGHT Dose Drops Elixir Chewable(80mg) (LBS.) drprs=droppers tsp=teaspoon 6 40 mg .4 ml (1/2) 6-11 80 mg .8 ml (full) 1/2 tsp 1 tab 12-16 120 mg 1 1/2 drprs 3/4 tsp 1 1/2 tabs 17-23 160 mg 2 drprs 1 tsp 2 tabs 24-30 240 mg 3 drprs 1 1/2 tsp 3 tabs 30-35 320 mg 2 tsp 4 tabs 36-41 360 mg 2 1/4 tsp 4 1/2 tabs 42-47 400 mg 2 1/2 tsp 5 tabs 48-53 480 mg 3 tsp 6 tabs 54-59 520 mg 3 1/4 tsp 6 1/2 tabs 60-64 560 mg 3 1/2 tsp 7 tabs 65-70 600 mg 3 3/4 tsp 7 1/2 tabs 71-76 640 mg 4 tsp 8 tabs 77-82 720 mg 4 1/2 tsp 9 tabs 83-88 800 mg 5 tsp 10 tabs >89 pounds or adults 650 mg to 900 mg Acetaminophen can be repeated every four hours. Maximum daily dose not to exceed 4000 mg. These maximum recommended dosages are slightly higher than the dosages written on the product container, but these dosages are very safe and well below the toxic dosage for acetaminophen. FOLLOW-UP CARE: You have been referred for follow-up care to the dentists listed below. Call the dentists office for an appointment as you were instructed or within the next two days. If you experience worsening or a significant change in your symptoms, notify the physician immediately or return to the Emergency Department at any time for re-evaluation. Prescriptions: Clindamycin HCl [Cleocin HCl] 150 mg PO TID #21 capsule Forms: Elevated Blood Pressure Referrals: FABIAN SEQUEIRA ARNP [Primary Care Provider] - Follow up as needed JOANN CHADWICK DDS [ACTIVE STAFF] - Follow up as needed
== END 2020-02-29 19:15 | disposition home or self-care (01) ==
LOC: ER 18:52
DX: K02.9 Dental caries, unspecified (principal); K08.89 Other specified disorders of teeth and supporting structures; I10 Essential (primary) hypertension; Z88.6 Allergy status to analgesic agent; Z88.5 Allergy status to narcotic agent; Z87.892 Personal history of anaphylaxis; Z91.013 Allergy to seafood; Z91.040 Latex allergy status; Z88.8 Allergy status to other drugs, medicaments and biological substances
CPT/HCPCS: 99282; J3490

== ENCOUNTER 2020-03-18 12:35 | Emergency (ER) | payer MEDICAID ==
--- NOTE | 2020-03-18 13:19 | ER Document Report ---
ED Medical Screen (RME) - General Stated Complaint: ABDOMINAL PAIN Time Seen by Provider: 03/18/20 13:14 Primary Care Provider: FABIAN SEQUEIRA ARNP [Primary Care Provider] - Follow up as needed Notes: HPI: 29-year-old female who is approximately 20 weeks gestation who follows with [place] [employer] [employer] presenting for right upper quadrant abdominal pain as well as generalized headache over the last 2 days. Has had nausea no vomiting no fever. Denies vaginal discharge or bleeding. Patient states she is being worked up by her [employer] [employer] for preeclampsia as she has had preeclampsia with prior pregnancies. Patient does have prior history of cholecystectomy PHYSICAL EXAMINATION: Appears mildly uncomfortable. Moderate tenderness to the right upper quadrant on palpation. Answers all questions appropriately. Gravid uterus is palpable and nontender I have greeted and performed a rapid initial assessment of this patient. A comprehensive ED assessment and evaluation of the patient, analysis of test results and completion of medical decision making process will be conducted by an additional ED providers. TRAVEL OUTSIDE OF THE [place] IN LAST 30 DAYS: No - Related Data Allergies/Adverse Reactions: morphine [Morphine] Allergy (Severe, Verified 03/18/20 13:11) Difficulty breathing/itch shellfish derived Allergy (Severe, Verified 03/18/20 13:11) Anaphylaxis iodine [Iodine] Allergy (Intermediate, Verified 03/18/20 13:11) RASH latex [Latex] Allergy (Intermediate, Verified 03/18/20 13:11) RASH diphenhydramine [From Benadryl] Allergy (Verified 03/18/20 13:11) verapamil Allergy (Verified 03/18/20 13:11) Tachycardia Past Medical History - Social History Family history: Reviewed & Not Pertinent, Hypertension, Other - copd - Past Medical History Cardiac Medical History: Reports: Hx Hypertension Denies: Hx Heart Attack Pulmonary Medical History: Reports: Hx Asthma - resolved Denies: Hx Bronchitis, Hx COPD, Hx Pneumonia Neurological Medical History: Reports: Hx Migraine. Denies: Hx Seizures Renal/ Medical History: Reports: Hx Kidney Stones, Hx Pelvic Inflammatory Disease. Denies: Hx Peritoneal Dialysis Musculoskeltal Medical History: Denies Hx Arthritis, Reports Hx Musculoskeletal Trauma Psychiatric Medical History: Reports: Hx Bipolar Disorder, Hx Depression, Hx Post Traumatic Stress Disorder Traumatic Medical History: Reports: Hx Fractures - Fractured ankle Past Surgical History: Reports: Hx Cholecystectomy, Hx Oral Surgery - wisdom tooth removal 07/2016, Hx Orthopedic Surgery - right ankle - Immunizations Immunizations up to date: Yes Hx Diphtheria, Pertussis, Tetanus Vaccination: Yes Physical Exam - Vital signs Vitals: Temp Pulse Resp BP Pulse Ox 98.8 F 97 16 144/87 H 100 03/18/20 12:40 03/18/20 12:40 03/18/20 12:40 03/18/20 12:40 03/18/20 12:40 Course - Vital Signs Vital signs: Temp Pulse Resp BP Pulse Ox 98.8 F 97 16 144/87 H 100 03/18/20 12:40 03/18/20 12:40 03/18/20 12:40 03/18/20 12:40 03/18/20 12:40 Doctor's Discharge - Discharge Referrals: FABIAN SEQUEIRA ARNP [Primary Care Provider] - Follow up as needed
[2020-03-18 14:06] LABS: ABSOLUTE EOSINOPHILS # (AUTO) 0.1 10^3/uL (0.0-0.6); ABSOLUTE LYMPHOCYTES (AUTO) 1.8 10^3/uL (0.5-4.7); ABSOLUTE MONOCYTES (AUTO) 0.9 10^3/uL (0.1-1.4); ABSOLUTE NEUT (AUTO) 10.6 10^3/uL (1.7-8.2); APPEARANCE,URINE SLIGHTLY-CLOUDY; BASOPHILS % (AUTO) 0.1 % (0-2); BILIRUBIN,URINE NEGATIVE (NEGATIVE); COLOR,URINE YELLOW; EOSINOPHILS % (AUTO) 0.9 % (0-6); GLUCOSE, URINE NEGATIVE (NEGATIVE); HEMATOCRIT 35.2 % (36.0-47.0); HEMOGLOBIN 12.3 g/dL (12.0-15.5); KETONES,URINE NEGATIVE (NEGATIVE); LEUKOCYTE ESTERASE,URINE NEGATIVE (NEGATIVE); LYMPHOCYTES % (AUTO) 13.4 % (13-45); MEAN CORPUSCULAR HEMOGLOBIN 30.8 pg (27.0-33.4); MEAN CORPUSCULAR HGB CONC 34.8 g/dL (32.0-36.0); MEAN CORPUSCULAR VOLUME 89 fl (80-97); MONOCYTES % (AUTO) 6.8 % (3-13); NITRITE,URINE NEGATIVE (NEGATIVE); PLATELET COUNT 379 10^3/uL (150-450); PROTEIN,URINE NEGATIVE (NEGATIVE); RED BLOOD COUNT 3.98 10^6/uL (3.72-5.28); RED CELL DISTRIBUTION WIDTH 13.5 % (11.5-14.0); SEGMENTED NEUTROPHILS % (AUTO) 78.8 % (42-78); TOTAL CELLS COUNTED % (AUTO) 100 %; URINE SPECIFIC GRAVITY 1.012; UROBILINOGEN,URINE NEGATIVE mg/dL (<2.0); WHITE BLOOD COUNT 13.5 10^3/uL (4.0-10.5)
[2020-03-18 14:09] LABS: INTERNATIONAL RATION (INR) 0.94; PROTHROMBIN TIME 12.8 SEC (11.4-15.4)
[2020-03-18 14:23] LABS: ALBUMIN 3.6 g/dL (3.5-5.0); ALKALINE PHOSPHATASE 82 U/L (38-126); ASPARTATE AMINO TRANSFERASE 22 U/L (14-36); BILIRUBIN,TOTAL 0.3 mg/dL (0.2-1.3); BLOOD UREA NITROGEN 5 mg/dL (7-20); CARBON DIOXIDE 28 mmol/L (22-30); CHLORIDE 104 mmol/L (98-107); GLUCOSE 78 mg/dL (75-110); TOTAL PROTEIN 6.8 g/dL (6.3-8.2); URIC ACID 2.4 mg/dL (2.5-6.2)
[2020-03-18 14:26] LABS: UR PRO/CREAT RATIO RESULT 0.2 mg/mg (0.0-0.2); URINE CREATININE 69.1 mg/dL (16-327); URINE PROTEIN 12.3 mg/dL (<12)
[2020-03-18 14:27] LABS: ANION GAP 4 (5-19)
--- NOTE | 2020-03-18 14:54 | RADIOLOGY REPORT (SQ) ---
EXAM DESCRIPTION: U/S OB 14+ TA/1 GEST W/DOPPLER IMAGES COMPLETED DATE/TIME: 03/18/2020 2:36 pm REASON FOR STUDY: right abd pain, 19 week preg COMPARISON: None. TECHNIQUE: Static and Dynamic grayscale imaging performed of gravid uterus using transabdominal appr oach. Additional selected color Doppler and spectral images recorded. All stored on PACS. LIMITATIONS: None. FINDINGS: FETUSES SEEN:1 EGA: 21 weeks 1 day Calculated using BPD,FL,HC,AC documented on images. This leads menstrual dating by 1 week 2 days. CEDRIC: 07/28/2020 EFW: 397 grams +/- 59 grams NAOMIE: 11.2 cm PLACENTA: Anterior A 1.7 x 1.6 x 2.0 cm hypoechoic focus is noted in the midportion of the placenta, most likely representing a placental figueroa. PRESENTATION: Cephalic. ANATOMY: MATERNAL ADNEXA: Maternal ovaries not visualized. CERVICAL LENGTH: 2.93 cm Closed. OTHER: No other significant finding. IMPRESSION: LIVING INTRAUTERINE . ESTIMATED GESTATIONAL AGE 21 weeks 1 day which bleeds men strual dating by 1 weeks 2 days. Normal amniotic fluid index. TECHNICAL DOCUMENTATION: JOB ID: [id number] 2010 [employer]- All Rights Reserved Reading location - IP/workstation name: [email or web address]
--- NOTE | 2020-03-18 16:41 | ER Document Report ---
ED General - General Chief Complaint: Headache >24 hrs old Stated Complaint: ABDOMINAL PAIN Time Seen by Provider: 03/18/20 13:14 Primary Care Provider: FABIAN SEQUEIRA ARNP [Primary Care Provider] - Follow up as needed Notes: 29-year-old female presents emergency department at approximately 20 weeks gestation. She is a G5, with a strong history of preeclampsia currently being treated with aspirin 81 mg once a day as well as labetalol 100 mg twice a day. Patient states that on she developed a severe bandlike headache right around her forehead that she associates with prior episodes of preeclamps ia as well as right upper quadrant abdominal pain starting last evening. She denies any swelling, denies any vomiting, admits nausea. Denies any blurry vision, fevers, sweats or chills or neck pain. States that she saw MFM in [facility] on Thursday, was told that she had gained 10 pounds over the past 2-1/2 weeks. Is still being monitored by them for preeclampsia. States her headache is unchanged with acetaminophen since . TRAVEL OUTSIDE OF THE [place] IN LAST 30 DAYS: No - Related Data Allergies/Adverse Reactions: morphine [Morphine] Allergy (Severe, Verified 03/18/20 13:11) Difficulty breathing/itch shellfish derived Allergy (Severe, Verified 03/18/20 13:11) Anaphylaxis iodine [Iodine] Allergy (Intermediate, Verified 03/18/20 13:11) RASH latex [Latex] Allergy (Intermediate, Verified 03/18/20 13:11) RASH diphenhydramine [From Benadryl] Allergy (Verified 03/18/20 13:11) verapamil Allergy (Verified 03/18/20 13:11) Tachycardia Past Medical History - General Information source: Patient - Social History Smoking Status: Former Smoker Chew tobacco use (# tins/day): No Frequency of alcohol use: None Drug Abuse: None Family History: CAD, COPD, CVA, DM, Hyperlipidemia, Hypertension Patient has homicidal ideation: No - Past Medical History Cardiac Medical History: Reports: Hx Hypertension Denies: Hx Heart Attack Pulmonary Medical History: Reports: Hx Asthma - resolved Denies: Hx Bronchitis, Hx COPD, Hx Pneumonia Neurological Medical History: Reports: Hx Migraine. Denies: Hx Seizures Renal/ Medical History: Reports: Hx Kidney Stones, Hx Pelvic Inflammatory Disease. Denies: Hx Peritoneal Dialysis Musculoskeletal Medical History: Denies Hx Arthritis, Reports Hx Musculoskeletal Trauma Psychiatric Medical History: Reports: Hx Bipolar Disorder, Hx Depression, Hx Post Traumatic Stress Disorder Traumatic Medical History: Reports: Hx Fractures - Fractured ankle Past Surgical History: Reports: Hx Cholecystectomy, Hx Oral Surgery - wisdom tooth removal 07/2016, Hx Orthopedic Surgery - right ankle - Immunizations Immunizations up to date: Yes Hx Diphtheria, Pertussis, Tetanus Vaccination: Yes Review of Systems - Review of Systems Constitutional: No symptoms reported EENT: No symptoms reported Cardiovascular: No symptoms reported Respiratory: No symptoms reported Gastrointestinal: See HPI, Abdominal pain, Nausea Female Genitourinary: See HPI, Neurological/Psychological: See HPI, Headaches -: Yes All other systems reviewed and negative Physical Exam - Vital signs Vitals: Temp Pulse Resp BP Pulse Ox 98.8 F 97 16 144/87 H 100 03/18/20 12:40 03/18/20 12:40 03/18/20 12:40 03/18/20 12:40 03/18/20 12:40 Interpretation: Hypertensive - Notes Notes: GENERAL: Alert, interacts well. No acute distress. HEAD: Normocephalic, atraumatic EYES: Pupils equal, round and reactive to light, extraocular movements intact. ENT: Oral mucosa moist, tongue midline. NECK: Full range of motion, supple, trachea midline. LUNGS: Clear to auscultation bilaterally, no wheezes, rales or rhonchi, no respiratory distress. HEART: Regular rate and rhythm, no murmurs, gallops, rubs. ABDOMEN: Gravid, and appropriate for dates, nontender to palpation, right upper quadrant pain is not reproducible on palpation, bowel sounds present in all 4 quadrants. EXTREMITIES: Moves all 4 extremities spontaneously, no edema, radial and dorsalis pedis pulses 2/4 bilaterally. No cyanosis. NEUROLOGICAL: Alert and oriented x3, normal speech, no facial droop, biceps and patellar DTRs 2+ bilaterally. PSYCH: Normal mood, normal affect. SKIN: Warm, Dry, normal turgor, no rashes or lesions noted. Course - Re-evaluation Re-evalutation: 03/18/20 16:39 CBC shows leukocytosis at 13.5 although this may be typical for her in , no evidence of acute infection is seen, coags normal, CMP does not reveal any changes associated with severe preeclampsia or help syndrome, urinalysis shows no protein on the dipstick and total protein is 12.3 which is minimally elevated. Protein to creatinine ratio is normal. Obstetrics Ultrasound 03/18/20 13:34 IMPRESSION: LIVING INTRAUTERINE . ESTIMATED GESTATIONAL AGE 21 weeks 1 day which bleeds menstrual dating by 1 weeks 2 days. Normal amniotic fluid index. No evidence of active preeclampsia at this time. No indication for acute in tervention. Discussed with Dr. Winston, agrees that patient is currently being treated appropriately to prevent preeclampsia. Would recommend treating headache with Tylenol No. 3 and have her continue to follow-up with [employer] as an outpatient. States I can discuss with patient possibly increasing her labetalol. As the patient does appear somewhat uncomfortable and her slightly elevated blood pressure may be a response to pain and she is already taking 100 mg twice a day currently I am going to recommend that she start by taking the Tylenol 3's for up to the next 2 days as needed and then if she is still having blood pressure that is over 140 systolic discussed with her primary [employer] increasing her labetalol at that point. - Vital Signs Vital signs: Temp Pulse Resp BP Pulse Ox 98.8 F 97 16 144/87 H 100 03/18/20 12:40 03/18/20 12:40 03/18/20 12:40 03/18/20 12:40 03/18/20 12:40 - Laboratory Result Diagrams: 03/18/20 13:40 03/18/20 13:40 Laboratory results interpreted by me: 03/18/20 03/18/20 03/18/20 13:40 13:40 13:40 WBC 13.5 H Hct 35.2 L Absolute Neuts (auto) 10.6 H Seg Neutrophils % 78.8 H Sodium 135.8 L Anion Gap 4 L BUN 5 L Creatinine 0.49 L Uric Acid 2.4 L Urine Total Protein 12.3 H Discharge - Discharge Clinical Impression: Second trimester , induced hypertension, antepartum, Right upper quadrant abdominal pain Acute tension headache Qualifiers: Intractability: intractable Qualified Code(s): G44.201 - Tension-type headache, unspecified, intractable Condition: Stable Disposition: HOME, SELF-CARE Additional Instructions: Today you do not have any signs of active preeclampsia needing emergent treatment. Please continue taking your labetalol as prescribed and your baby aspirin as prescribed. I have prescribed you Tylenol 3 also known as Tylenol with codeine. You may take this instead of [id number] Tylenol for your headache as needed over the next 2 days. Please continue to monitor your blood pressure. If after your headache improves your blood pressure is still greater than 140 systolic (top number) you may consider taking 1-1/2 tablets of your labetalol in the morning and 1 tablet of your labetalol in the evening. Please be certain that you follow-up with your [employer]'s and MFM specialists as an outpatient to discuss today's symptoms. Please return to the emergency department if your headache worsens, does not improve, becomes associated with fever, neck pain, blurry vision, rapid weight gain over the course of 2 to 3 days or significant swelling in the hands or feet. Prescriptions: Acetaminophen with Codeine [Tylenol #3 Tablet] 1 each PO Q4HP PRN #10 tablet PRN Reason: Referrals: FABIAN SEQUEIRA ARNP [Primary Care Provider] - Follow up as needed
[2020-03-18 17:17] VITALS: BP 135/90
== END 2020-03-18 17:16 | disposition home or self-care (01) ==
LOC: ER 12:35
DX: O99.352 Diseases of the nervous system complicating pregnancy, second trimester (principal); G44.201 Tension-type headache, unspecified, intractable; O13.2 Gestational [pregnancy-induced] hypertension without significant proteinuria, second trimester; O26.892 Other specified pregnancy related conditions, second trimester; R10.11 Right upper quadrant pain; R11.0 Nausea; O26.02 Excessive weight gain in pregnancy, second trimester; O99.112 Other diseases of the blood and blood-forming organs and certain disorders involving the immune mechanism complicating pregnancy, second trimester; D72.829 Elevated white blood cell count, unspecified; Z3A.00 Weeks of gestation of pregnancy not specified; Z79.82 Long term (current) use of aspirin; Z79.899 Other long term (current) drug therapy; Z87.891 Personal history of nicotine dependence; Z88.6 Allergy status to analgesic agent; Z88.5 Allergy status to narcotic agent; Z87.892 Personal history of anaphylaxis; Z91.013 Allergy to seafood; Z91.040 Latex allergy status; Z88.8 Allergy status to other drugs, medicaments and biological substances
CPT/HCPCS: 36415; 76805; 80053; 81001; 82570; 83690; 84156; 84550; 85025; 85610; 93976; 99284

== ENCOUNTER 2020-04-03 15:06 | Emergency (ER) | payer MEDICAID ==
--- NOTE | 2020-04-03 15:44 | ER Document Report ---
ED Medical Screen (RME) - General Chief Complaint: Flank Pain Stated Complaint: ABDOMINAL PAIN Time Seen by Provider: 04/03/20 15:32 Primary Care Provider: FABIAN SEQUEIRA ARNP [Primary Care Provider] - Follow up as needed TRAVEL OUTSIDE OF THE [place] IN LAST 30 DAYS: No - HPI Notes: 04/03/20 15:39 29 yr old female who is 22 weeks presents to the ED for complaints of R flank pain, polyuria, dysuria, that started 2 days ago. Patient states she has a history of pyelonephritis during her previous . Patient reports she is peeing every half an hour to an hour. Denies tea colored urine. Denies any chest pain shortness of breath, nausea, vomiting, diarrhea, her TRANSFER AGENT is aware that she is at the emergency room right now for left flank pain. No history of nephrolithiasis. Has tried Tylenol for pain without relief. I have greeted and performed a rapid initial assessment of this patient. A comprehensive ED assessment and evaluation of the patient, analysis of test results and completion of the medical decision making process will be conducted by additional ED providers. PHYSICAL EXAMINATION: GENERAL: Well-appearing, well-nourished and in no acute distress. HEAD: Atraumatic, normocephalic. EYES: Pupils equal round extraocular movements intact, conjunctiva are normal. NECK: Normal range of motion CV: s1, s2 regular LUNGS: No respiratory distress Musculoskeletal: Normal range of motion NEUROLOGICAL: Normal speech, normal gait. SKIN: Warm, Dry, normal turgor, no rashes or lesions noted. - Related Data Allergies/Adverse Reactions: morphine [Morphine] Allergy (Severe, Verified 03/18/20 13:11) Difficulty breathing/itch shellfish derived Allergy (Severe, Verified 03/18/20 13:11) Anaphylaxis iodine [Iodine] Allergy (Intermediate, Verified 03/18/20 13:11) RASH latex [Latex] Allergy (Intermediate, Verified 03/18/20 13:11) RASH diphenhydramine [From Benadryl] Allergy (Verified 03/18/20 13:11) verapamil Allergy (Verified 03/18/20 13:11) Tachycardia Home Medications: Labatolol. Aspirin. pernatal Past Medical History - Social History Chew tobacco use (# tins/day): No Frequency of alcohol use: None Drug Abuse: None Family history: Reviewed & Not Pertinent, Hypertension, Other - copd - Past Medical History Cardiac Medical History: Reports: Hx Hypertension Denies: Hx Heart Attack Pulmonary Medical History: Reports: Hx Asthma - resolved Denies: Hx Bronchitis, Hx COPD, Hx Pneumonia Neurological Medical History: Reports: Hx Migraine. Denies: Hx Seizures Renal/ Medical History: Reports: Hx Kidney Stones, Hx Pelvic Inflammatory Disease. Denies: Hx Peritoneal Dialysis Musculoskeltal Medical History: Denies Hx Arthritis, Reports Hx Musculoskeletal Trauma Psychiatric Medical History: Reports: Hx Bipolar Disorder, Hx Depression, Hx P ost Traumatic Stress Disorder Traumatic Medical History: Reports: Hx Fractures - Fractured ankle Past Surgical History: Reports: Hx Cholecystectomy, Hx Oral Surgery - wisdom tooth removal 07/2016, Hx Orthopedic Surgery - right ankle - Immunizations Immunizations up to date: Yes Hx Diphtheria, Pertussis, Tetanus Vaccination: Yes Physical Exam - Vital signs Vitals: Temp Pulse Resp BP Pulse Ox 98.4 F 94 20 133/85 H 100 04/03/20 15:22 04/03/20 15:22 04/03/20 15:22 04/03/20 15:22 04/03/20 15:22 Course - Vital Signs Vital signs: Temp Pulse Resp BP Pulse Ox 98.4 F 94 20 133/85 H 100 04/03/20 15:22 04/03/20 15:22 04/03/20 15:22 04/03/20 15:22 04/03/20 15:22 Doctor's Discharge - Discharge Referrals: FABIAN SEQUEIRA ARNP [Primary Care Provider] - Follow up as needed
[2020-04-03 16:09] LABS: ABSOLUTE EOSINOPHILS # (AUTO) 0.2 10^3/uL (0.0-0.6); ABSOLUTE LYMPHOCYTES (AUTO) 2.2 10^3/uL (0.5-4.7); ABSOLUTE MONOCYTES (AUTO) 1.1 10^3/uL (0.1-1.4); ABSOLUTE NEUT (AUTO) 13.3 10^3/uL (1.7-8.2); BASOPHILS % (AUTO) 0.1 % (0-2); HEMATOCRIT 36.4 % (36.0-47.0); HEMOGLOBIN 12.3 g/dL (12.0-15.5); MEAN CORPUSCULAR HEMOGLOBIN 30.6 pg (27.0-33.4); MEAN CORPUSCULAR HGB CONC 33.9 g/dL (32.0-36.0); MEAN CORPUSCULAR VOLUME 90 fl (80-97); MONOCYTES % (AUTO) 6.6 % (3-13); PLATELET COUNT 372 10^3/uL (150-450); RED BLOOD COUNT 4.04 10^6/uL (3.72-5.28); RED CELL DISTRIBUTION WIDTH 13.3 % (11.5-14.0); SEGMENTED NEUTROPHILS % (AUTO) 79.3 % (42-78); TOTAL CELLS COUNTED % (AUTO) 100 %; WHITE BLOOD COUNT 16.8 10^3/uL (4.0-10.5)
[2020-04-03 16:26] LABS: ALBUMIN 3.8 g/dL (3.5-5.0); ALKALINE PHOSPHATASE 92 U/L (38-126); ANION GAP 8 (5-19); ASPARTATE AMINO TRANSFERASE 22 U/L (14-36); BILIRUBIN,TOTAL 0.2 mg/dL (0.2-1.3); BLOOD UREA NITROGEN 11 mg/dL (7-20); CALCIUM 8.8 mg/dL (8.4-10.2); CARBON DIOXIDE 25 mmol/L (22-30); CHLORIDE 104 mmol/L (98-107); GLUCOSE 78 mg/dL (75-110); POTASSIUM 3.8 mmol/L (3.6-5.0); TOTAL PROTEIN 7.1 g/dL (6.3-8.2)
--- NOTE | 2020-04-03 17:07 | RADIOLOGY REPORT (SQ) ---
EXAM DESCRIPTION: U/S RETROPERITON (RENAL/AORTA) IMAGES COMPLETED DATE/TIME: 04/03/2020 4:59 pm REASON FOR STUDY: R flank pain, polyuria, 22w preg, COMPARISON: None. TECHNIQUE: Dynamic and static grayscale images acquired of the kidneys and bladder and recorded on P ACS. Additional selected color Doppler and spectral images recorded. LIMITATIONS: None. FINDINGS: RIGHT KIDNEY: Normal size, 12.4 cm. Normal echogenicity. No solid or suspicious masses. No hydronephrosis. No calcifications. LEFT KIDNEY: Normal size, 11.8 cm. Normal echogenicity. No solid or suspicious masses. No hydronephr osis. No calcifications. BLADDER: No masses. OTHER FINDINGS: There is an intrauterine gestation in breech lie. heart rate is 150. IMPRESSION: NORMAL RENAL AND BLADDER ULTRASOUND. TECHNICAL DOCUMENTATION: JOB ID: [id number] [employer]- All Rights Reserved Reading location - IP/workstation name: [email or web address]
[2020-04-03 17:28] LABS: APPEARANCE,URINE CLEAR; BILIRUBIN,URINE NEGATIVE (NEGATIVE); COLOR,URINE YELLOW; GLUCOSE, URINE NEGATIVE (NEGATIVE); KETONES,URINE NEGATIVE (NEGATIVE); LEUKOCYTE ESTERASE,URINE NEGATIVE (NEGATIVE); NITRITE,URINE NEGATIVE (NEGATIVE); PROTEIN,URINE NEGATIVE (NEGATIVE); URINE SPECIFIC GRAVITY 1.027; UROBILINOGEN,URINE NEGATIVE mg/dL (<2.0)
--- NOTE | 2020-04-03 20:05 | ER Document Report ---
ED General - General Chief Complaint: Flank Pain Stated Complaint: ABDOMINAL PAIN Time Seen by Provider: 04/03/20 15:32 Primary Care Provider: FABIAN SEQUEIRA ARNP [NO [facility] MD] - Follow up as needed Mode of Arrival: Ambulatory Information source: Patient Notes: ED General Aminata notes 2 Mar - General Chief Complaint: Headache >24 hrs old Stated Complaint: ABDOMINAL PAIN Time Seen by Provider: 03/18/20 13:14 Primary Care Provider: FABIAN SEQUEIRA ARNP [Primary Care Provider] - Follow up as needed Notes: 29-year-old female presents emergency department at approximately 20 weeks gestation. She is a G5, with a strong history of preeclampsia currently being treated with aspirin 81 mg once a day as well as labetalol 100 mg twice a day. Patient states that on she developed a severe bandlike headache right around her forehead that she associates with prior episodes of preeclampsi a as well as right upper quadrant abdominal pain starting last evening. She denies any swelling, denies any vomiting, admits nausea. Denies any blurry vision, fevers, sweats or chills or neck pain. ED Medical Screen ([facility]ye notes) - General Chief Complaint: Flank Pain Stated Complaint: ABDOMINAL PAIN Time Seen by Provider: 04/03/20 15:32 Primary Care Provider: FABIAN SEQUEIRA ARNP [Primary Care Provider] - Follow up as needed TRAVEL OUTSIDE OF THE [place] IN LAST 30 DAYS: No - HPI Notes: 04/03/20 15:39 29 yr old female who is 22 weeks presents to the ED for complaints of R flank pain, polyuria, dysuria, that started 2 days ago. Patient states she has a history of pyelonephritis during her previous . Patient reports she is peeing every half an hour to an hour. Denies tea colored urine. 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 No history of nephrolithiasis. Has tried Tylenol for pain without relief. I have greeted and performed a rapid initial assessment of this patient. A comprehensive ED assessment and evaluation of the patient, analysis of test results and completion of the medical decision making process will be conducted by additional ED providers. PHYSICAL EXAMINATION: GENERAL: Well-appearing, well-nourished and in no acute distress. HEAD: Atraumatic, normocephalic. EYES: Pupils equal round extraocular movements intact, conjunctiva are normal. NECK: Normal range of motion CV: s1, s2 regular LUNGS: No respiratory distress Musculoskeletal: Normal range of motion NEUROLOGICAL: Normal speech, normal gait. SKIN: Warm, Dry, normal turgor, no rashes or lesions noted. my notes 29-year-old female arrives by POV with driving. Patient has had 2 days of right flank pain radiating to her right groin with urgency and frequency. She has had a history of pyelonephritis and is followed by a OB otoniel castellanos in [facility]. She delivered her last child preeclamptic 16 months ago and he is now doing well. She has a history of pyelonephritis with her last and was hospitalized for this. She reports she has the same symptoms at this time. ab2.. Patient says she cannot take penicillin and cannot take morphine. She has had hydrocodone with no problems. Her CBC is 16,000 tonight with ultrasound within normal limits. Ultrasound with IUP breech 150 heart rate. Urinalysis within normal limits with patient has UTI type symptoms. I advised her of her labs and ultrasound report and will empirically treat if she is agreeable. I advised her to follow-up with OB doctor this week. She is in a hurry to get out of the ER to get to her children. TRAVEL OUTSIDE OF THE [place] IN LAST 30 DAYS: No - HPI Onset: Other - x 2 days Onset/Duration: Sudden Quality of pain: Achy Severity: Mild Pain Level: 1 Associated symptoms: None Exacerbated by: Denies Relieved by: Denies Similar symptoms previously: Yes Recently seen / treated by doctor: Yes - Related Data Allergies/Adverse Reactions: morphine [Morphine] Allergy (Severe, Verified 03/18/20 13:11) Difficulty breathing/itch shellfish derived Allergy (Severe, Verified 03/18/20 13:11) Anaphylaxis iodine [Iodine] Allergy (Intermediate, Verified 03/18/20 13:11) RASH latex [Latex] Allergy (Intermediate, Verified 03/18/20 13:11) RASH diphenhydramine [From Benadryl] Allergy (Verified 03/18/20 13:11) verapamil Allergy (Verified 03/18/20 13:11) Tachycardia Home Medications: Labatolol. Aspirin. pernatal Past Medical History - General Information source: Patient - Social History Smoking Status: Never Smoker Cigarette use (# per day): No Chew tobacco use (# tins/day): No Smoking Education Provided: No Frequency of alcohol use: None Drug Abuse: None Lives with: Family Family History: CAD, COPD, CVA, DM, Hyperlipidemia, Hypertension Patient has suicidal ideation: No Patient has homicidal ideation: No - Past Medical History Cardiac Medical History: Reports: Hx Hypertension Denies: Hx Heart Attack Pulmonary Medical History: Reports: Hx Asthma - resolved Denies: Hx Bronchitis, Hx COPD, Hx Pneumonia Neurological Medical History: Reports: Hx Migraine. Denies: Hx Seizures Renal/ Medical History: Reports: Hx Kidney Stones, Hx Pelvic Inflammatory Disease. Denies: Hx Peritoneal Dialysis Musculoskeletal Medical History: Denies Hx Arthritis, Reports Hx Musculoskeletal Trauma Psychiatric Medical History: Reports: Hx Bipolar Disorder, Hx Depression, Hx Post Traumatic Stress Disorder Traumatic Medical History: Reports: Hx Fractures - Fractured ankle Past Surgical History: Reports: Hx Cholecystectomy, Hx Oral Surgery - wisdom tooth removal 07/2016, Hx Orthopedic Surgery - right ankle - Immunizations Immunizations up to date: Yes Hx Diphtheria, Pertussis, Tetanus Vaccination: Yes Review of Systems - Review of Systems Constitutional: See HPI, Recent illness EENT: No symptoms reported Cardiovascular: No symptoms reported, Dyspnea Gastrointestinal: See HPI, Abdominal pain Genitourinary: See HPI, Flank pain, Urgency Female Genitourinary: No symptoms reported Musculoskeletal: No symptoms reported Skin: No symptoms reported Hematologic/Lymphatic: No symptoms reported Neurological/Psychological: No symptoms reported Physical Exam - Vital signs Vitals: Temp Pulse Resp BP Pulse Ox 98.4 F 94 20 133/85 H 100 04/03/20 15:22 04/03/20 15:22 04/03/20 15:22 04/03/20 15:22 04/03/20 15:22 Interpretation: Normal - General General appearance: Alert - HEENT Head: Normocephalic, Atraumatic Eyes: Normal Pupils: PERRL Pharynx: Normal Neck: Normal - Respiratory Respiratory status: No respiratory distress Chest status: Nontender Breath sounds: Normal Chest palpation: Normal - Cardiovascular Rhythm: Regular Heart sounds: Normal auscultation Murmur: No - Abdominal Inspection: Normal Distension: No distension Bowel sounds: Normal Tenderness: Tender - right flank - Rectal Hemorrhoids: Other - deferred - Genitourinary Bimanuel exam: Other - deferred - Back Back: CVA tenderness - Right sided - Extremities General upper extremity: Normal inspection General lower extremity: Normal inspection - Neurological Neuro grossly intact: Yes Cognition: Normal Orientation: AAOx4 Celi Coma Scale Eye Opening: Spontaneous Celi Coma Scale Verbal: Oriented Butterfield Coma Scale Motor: Obeys Commands Butterfield Coma Scale Total: 15 Speech: Normal Motor strength normal: LUE, RUE, LLE, RLE Sensory: Normal - Psychological Associated symptoms: Normal affect - Skin Skin Temperature: Warm Skin Moisture: Dry Course - Vital Signs Vital signs: Temp Pulse Resp BP Pulse Ox 98.5 F 100 20 145/87 H 100 04/03/20 18:54 04/03/20 18:54 04/03/20 18:54 04/03/20 18:54 04/03/20 18:54 - Laboratory Result Diagrams: 04/03/20 15:45 04/03/20 15:45 Laboratory results interpreted by me: 04/03/20 04/03/20 04/03/20 15:20 15:45 15:45 WBC 16.8 H Absolute Neuts (auto) 13.3 H Seg Neutrophils % 79.3 H Beta HCG, Quant 9060.70 H Urine Ascorbic Acid 20 H - Diagnostic Test Radiology reviewed: Reports reviewed Discharge - Discharge Clinical Impression: Pyelonephritis affecting Qualifiers: Trimester: second trimester Qualified Code(s): O23.02 - Infections of kidney in , second trimester Condition: Good Disposition: HOME, SELF-CARE Additional Instructions: Follow-up with OB doctor tomorrow. Call office by telephone and alerted them to the fact you were seen here and given antibiotics IM and p.o. Return to ER if symptoms persist take medicines as directed encourage fluids Prescriptions: Nitrofurantoin Monohyd/M-Cryst [Macrobid 100 mg Capsule] 100 mg PO BID #15 cap Forms: Return to Work Referrals: FABIAN SEQUEIRA ARNP [NO LOCAL MD] - Follow up as needed
[2020-04-03] MEDS ORDERED: HYDROCODONE/ACETAMINOPHEN 5-325 MG (6 TAB/ER DISP) PO PRN (20:31)
[2020-04-03] MEDS ORDERED: CEFTRIAXONE INJ 1000 MG VIAL IM ONE (20:31)
[2020-04-03] MEDS ORDERED: ONDANSETRON ODT 4 MG TAB (6 TAB/ER DISP) PO PRN (20:31)
[2020-04-03] MEDS ORDERED: LIDOCAINE 1% INJ (10 MG/ML) 10 ML MDV INJ ONE (20:43)
[2020-04-03 20:59] VITALS: BP 132/84
== END 2020-04-03 20:58 | disposition home or self-care (01) ==
LOC: ER 15:06
DX: O23.02 Infections of kidney in pregnancy, second trimester (principal); N12 Tubulo-interstitial nephritis, not specified as acute or chronic; O16.2 Unspecified maternal hypertension, second trimester; O26.892 Other specified pregnancy related conditions, second trimester; R39.15 Urgency of urination; R35.8 Other polyuria; R30.0 Dysuria; R10.9 Unspecified abdominal pain; R11.0 Nausea; O99.512 Diseases of the respiratory system complicating pregnancy, second trimester; J45.909 Unspecified asthma, uncomplicated; R06.00 Dyspnea, unspecified; Z3A.22 22 weeks gestation of pregnancy; Z79.82 Long term (current) use of aspirin; Z79.899 Other long term (current) drug therapy; Z88.8 Allergy status to other drugs, medicaments and biological substances
CPT/HCPCS: 99285; 96372; 36415; 84702; 85025; 80053; 81001; 76770; J0696; J3490

== ENCOUNTER 2020-04-04 11:35 | Emergency (ER) | payer MEDICAID ==
[2020-04-04] MEDS ORDERED: RINGERS SOLUTION,LACTATED 1,000 ML IV ONE ×2 (12:09→16:22)
[2020-04-04] MEDS ORDERED: METOCLOPRAMIDE HCL INJ/PF 10 MG/2 ML SDV IV ONE (12:09)
--- NOTE | 2020-04-04 12:12 | ER Document Report ---
ED Medical Screen (RME) - General Stated Complaint: WEAKNESS Time Seen by Provider: 04/04/20 12:05 Primary Care Provider: ENRIQUE DEY MD [Primary Care Provider] - Follow up as needed Mode of Arrival: Ambulatory Information source: Patient Notes: HPI; 29-year-old female 5 para 3 who states she is 22 weeks presents to the emergency room with worsening right flank pain. States she was seen here yesterday was diagnosed with pyelonephritis was offered admission states she refused. 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 Denies any fevers. Complains of nausea and persistent urination. PE: Alert and oriented x3. Mild distress noted. Lungs: Clear to auscultation without rales, rhonchi, wheezes. Heart: Regular rate rhythm without murmurs, rubs, gallops. Positive for right CVA tenderness. I have greeted and performed a rapid initial assessment of this patient. A comprehensive ED assessment and evaluation of the patient, analysis of test results and completion of the medical decision making process will be conducted by additional ED providers. I have specifically instructed the patient or family members with the patient to immediately return to any nursing staff should anything change in the patient's condition or with their chief complaint. TRAVEL OUTSIDE OF THE [place] IN LAST 30 DAYS: No - Related Data Allergies/Adverse Reactions: morphine [Morphine] Allergy (Severe, Verified 04/04/20 12:04) Difficulty breathing/itch shellfish derived Allergy (Severe, Verified 04/04/20 12:04) Anaphylaxis iodine [Iodine] Allergy (Intermediate, Verified 04/04/20 12:04) RASH latex [Latex] Allergy (Intermediate, Verified 04/04/20 12:04) RASH diphenhydramine [From Benadryl] Allergy (Verified 04/04/20 12:04) verapamil Allergy (Verified 04/04/20 12:04) Tachycardia Past Medical History - Social History Family history: Reviewed & Not Pertinent, Hypertension, Other - copd - Past Medical History Cardiac Medical History: Reports: Hx Hypertension Denies: Hx Heart Attack Pulmonary Medical History: Reports: Hx Asthma - resolved Denies: Hx Bronchitis, Hx COPD, Hx Pneumonia Neurological Medical History: Reports: Hx Migraine. Denies: Hx Seizures Renal/ Medical History: Reports: Hx Kidney Stones, Hx Pelvic Inflammatory Disease. Denies: Hx Peritoneal Dialysis Musculoskeltal Medical History: Denies Hx Arthritis, Reports Hx Musculoskeletal Trauma Psychiatric Medical History: Reports: Hx Bipolar Disorder, Hx Depression, Hx Post Traumatic Stress Disorder Traumatic Medical History: Reports: Hx Fractures - Fractured ankle Past Surgical History: Reports: Hx Cholecystectomy, Hx Oral Surgery - wisdom tooth removal 07/2016, Hx Orthopedic Surgery - right ankle - Immunizations Immunizations up to date: Yes Hx Diphtheria, Pertussis, Tetanus Vaccination: Yes Physical Exam - Vital signs Vitals: Temp Pulse Resp BP Pulse Ox 98.5 F 96 17 136/83 H 100 04/04/20 11:39 04/04/20 11:39 04/04/20 11:39 04/04/20 11:39 04/04/20 11:39 Course - Vital Signs Vital signs: Temp Pulse Resp BP Pulse Ox 98.5 F 96 17 136/83 H 100 04/04/20 11:39 04/04/20 11:39 04/04/20 11:39 04/04/20 11:39 04/04/20 11:39 Doctor's Discharge - Discharge Referrals: ENRIQUE DEY MD [Primary Care Provider] - Follow up as needed
[2020-04-04 12:44] LABS: ABSOLUTE EOSINOPHILS # (AUTO) 0.2 10^3/uL (0.0-0.6); ABSOLUTE LYMPHOCYTES (AUTO) 2.1 10^3/uL (0.5-4.7); ABSOLUTE MONOCYTES (AUTO) 0.9 10^3/uL (0.1-1.4); ABSOLUTE NEUT (AUTO) 11.2 10^3/uL (1.7-8.2); BASOPHILS % (AUTO) 0.1 % (0-2); EOSINOPHILS % (AUTO) 1.1 % (0-6); HEMATOCRIT 36.4 % (36.0-47.0); HEMOGLOBIN 12.4 g/dL (12.0-15.5); LYMPHOCYTES % (AUTO) 14.3 % (13-45); MEAN CORPUSCULAR HEMOGLOBIN 30.7 pg (27.0-33.4); MEAN CORPUSCULAR HGB CONC 34.1 g/dL (32.0-36.0); MEAN CORPUSCULAR VOLUME 90 fl (80-97); MONOCYTES % (AUTO) 6.5 % (3-13); PLATELET COUNT 388 10^3/uL (150-450); RED BLOOD COUNT 4.04 10^6/uL (3.72-5.28); RED CELL DISTRIBUTION WIDTH 13.6 % (11.5-14.0); TOTAL CELLS COUNTED % (AUTO) 100 %; WHITE BLOOD COUNT 14.4 10^3/uL (4.0-10.5)
[2020-04-04 12:47] LABS: AMORPHOUS SEDIMENT,URINE TRACE /HPF; APPEARANCE,URINE SLIGHTLY-CLOUDY; BILIRUBIN,URINE NEGATIVE (NEGATIVE); COLOR,URINE YELLOW; GLUCOSE, URINE NEGATIVE (NEGATIVE); KETONES,URINE NEGATIVE (NEGATIVE); LEUKOCYTE ESTERASE,URINE NEGATIVE (NEGATIVE); NITRITE,URINE NEGATIVE (NEGATIVE); PROTEIN,URINE NEGATIVE (NEGATIVE); URINE SPECIFIC GRAVITY 1.011; UROBILINOGEN,URINE NEGATIVE mg/dL (<2.0)
[2020-04-04 13:03] LABS: ALBUMIN 3.6 g/dL (3.5-5.0); ALKALINE PHOSPHATASE 95 U/L (38-126); ANION GAP 7 (5-19); ASPARTATE AMINO TRANSFERASE 22 U/L (14-36); BILIRUBIN,TOTAL 0.2 mg/dL (0.2-1.3); BLOOD UREA NITROGEN 7 mg/dL (7-20); CALCIUM 8.8 mg/dL (8.4-10.2); CARBON DIOXIDE 26 mmol/L (22-30); CHLORIDE 104 mmol/L (98-107); GLUCOSE 83 mg/dL (75-110); POTASSIUM 4.2 mmol/L (3.6-5.0)
[2020-04-04] MEDS ORDERED: CEFTRIAXONE 1 GM/D5W RTU 1 GM/50 ML RTUPB IV ONE (16:23)
--- NOTE | 2020-04-04 16:31 | ER Document Report ---
ED General - General Chief Complaint: Flank Pain Stated Complaint: WEAKNESS Time Seen by Provider: 04/04/20 12:05 Primary Care Provider: ENRIQUE DEY MD [Primary Care Provider] - Follow up as needed Mode of Arrival: Ambulatory TRAVEL OUTSIDE OF THE [place] IN LAST 30 DAYS: No - HPI Notes: Patient is a G5, P3 female, at approximately 22 weeks gestation, who presents to the emergency department for evaluation. She was actually seen here yesterday. She had complained of some pain in her right flank area, urinary frequency, and dysuria. She states it felt similar to when she was diagnosed with pyelonephritis during 1 of her last pregnancies. She was advised admission, but declined. She was sent home after receiving a dose of IV Rocephin, sent home with Macrobid. The patient tells me that Macrobid had not worked for her in the past, so she just has not taken any. She states today that she is feeling extremely poorly. She is very nauseated, has really not eaten anything. She is not had any emesis. She does have some chills. She states that she stood up earlier today and nearly passed out, falling, breaking her cell phone screen. She was advised by her QUILL MACHINE OPERATOR that, if she does have pyelonephritis, she should be admitted for further care. - Related Data Allergies/Adverse Reactions: morphine [Morphine] Allergy (Severe, Verified 04/04/20 12:04) Difficulty breathing/itch shellfish derived Allergy (Severe, Verified 04/04/20 12:04) Anaphylaxis iodine [Iodine] Allergy (Intermediate, Verified 04/04/20 12:04) RASH latex [Latex] Allergy (Intermediate, Verified 04/04/20 12:04) RASH diphenhydramine [From Benadryl] Allergy (Verified 04/04/20 12:04) verapamil Allergy (Verified 04/04/20 12:04) Tachycardia Home Medications: Labetalol, aspirin Past Medical History - General Information source: Patient - Social History Smoking Status: Never Smoker Chew tobacco use (# tins/day): No Frequency of alcohol use: None Drug Abuse: None Family History: CAD, COPD, CVA, DM, Hyperlipidemia, Hypertension - Past Medical History Cardiac Medical History: Reports: Hx Hypertension Denies: Hx Heart Attack Pulmonary Medical History: Reports: Hx Asthma - resolved Denies: Hx Bronchitis, Hx COPD, Hx Pneumonia Neurological Medical History: Reports: Hx Migraine. Denies: Hx Seizures Renal/ Medical History: Reports: Hx Kidney Stones, Hx Pelvic Inflammatory Disease, Other - History of preeclampsia. Denies: Hx Peritoneal Dialysis Musculoskeletal Medical History: Denies Hx Arthritis, Reports Hx Musculoskeletal Trauma Psychiatric Medical History: Reports: Hx Bipolar Disorder, Hx Depression, Hx Pos t Traumatic Stress Disorder Traumatic Medical History: Reports: Hx Fractures - Fractured ankle Past Surgical History: Reports: Hx Cholecystectomy, Hx Oral Surgery - wisdom tooth removal 07/2016, Hx Orthopedic Surgery - right ankle - Immunizations Immunizations up to date: Yes Hx Diphtheria, Pertussis, Tetanus Vaccination: Yes Review of Systems - Review of Systems Constitutional: See HPI EENT: No symptoms reported, Ear pain Respiratory: No symptoms reported Gastrointestinal: See HPI Genitourinary: See HPI Female Genitourinary: See HPI Musculoskeletal: No symptoms reported Skin: No symptoms reported Neurological/Psychological: No symptoms reported Physical Exam - Vital signs Vitals: Temp Pulse Resp BP Pulse Ox 98.5 F 96 17 136/83 H 100 04/04/20 11:39 04/04/20 11:39 04/04/20 11:39 04/04/20 11:39 04/04/20 11:39 - Notes Notes: Vital signs reviewed, please refer to chart. Head is normocephalic, atraumatic. Pupils equal round, reactive to light. Neck is supple without meningismus. Heart is regular rate and rhythm. Lungs are clear to auscultation bilaterally. Abdomen is gravid, nontender, normoactive bowel sounds throughout. Positive Car sign on the right. Extremities without cyanosis, clubbing. Posterior calves are nontender. Peripheral pulses are equal. Skin is warm and dry. Patient is awake, alert, neurological exam is nonfocal. Gravid, Course - Re-evaluation Re-evalutation: 04/04/20 16:30 Patient presents to the emergency department for evaluation. I did review her vital signs from today, her chart from her previous visit. She was diagnosed with pyelonephritis clinically. She does have an elevated white blood cell count, but her urine in fact was unremarkable. I do not see that urine culture has been ordered, I will order one today. Based on her symptoms, I will give her a dose of IV Rocephin. Patient is currently stable. I will discuss case with QUILL MACHINE OPERATOR to determine appropriate disposition. 04/04/20 17:48 Patient remained stable. Her orthostatic vital signs showed a very slight increase in heart rate, but not quite positive. She was given IV fluids. She is given her second dose of Rocephin. At this point, clinically the patient may qualify for a pyelonephritis diagnosis, but it is not straightforward. She does have some flank pain, but her vomiting has been associated with her . She has only been nauseated at this point today. Her urine today is only remarkable for some bacteria and 2 white blood cells. It certainly is not remarkably infected. I believe treatment with Keflex may be more appropriate. I discussed this case with on-call QUILL MACHINE OPERATOR, Dr. Garcia. He agrees that this disposition sounds appropriate. The patient is to follow-up with her QUILL MACHINE OPERATOR this week, return to ED with worsening. - Vital Signs Vital signs: Temp Pulse Resp BP Pulse Ox 98.5 F 83 17 140/77 H 100 04/04/20 11:39 04/04/20 16:37 04/04/20 11:39 04/04/20 16:37 04/04/20 11:39 - Laboratory Result Diagrams: 04/04/20 12:20 04/04/20 12:20 Laboratory results interpreted by me: 04/04/20 04/04/20 12:20 12:20 WBC 14.4 H Absolute Neuts (auto) 11.2 H Creatinine 0.44 L - Diagnostic Test Radiology reviewed: Reports reviewed Radiology results interpreted by me: 04/04/20 17:49 Renal Ultrasound 04/04/20 16:31 IMPRESSION: Normal renal ultrasound. The bladder is not seen. Intrauterine gestation as described. Discharge - Discharge Clinical Impression: Urinary tract infection Qualifiers: Urinary tract infection type: site unspecified Hematuria presence: without hematuria Qualified Code(s): N39.0 - Urinary tract infection, site not specified Condition: Stable Disposition: HOME, SELF-CARE Instructions: Urinary Tract Infection ([facility]), Cephalexin ([facility]) Additional Instructions: Your blood work today is improving, and there are not significant signs of infection in your urine at this time. However, given your symptoms, as well as your , I am inclined to treat this with antibiotics. Please do not take the Macrobid as previously prescribed. You are to start Keflex. Please take it as directed until it is gone. Follow-up with your QUILL MACHINE OPERATOR this week. Return to the emergency department with worsening or new concerning symptoms of any sort. Referrals: ENRIQUE DEY MD [Primary Care Provider] - Follow up as needed
--- NOTE | 2020-04-04 17:33 | RADIOLOGY REPORT (SQ) ---
EXAM DESCRIPTION: U/S RETROPERITON (RENAL/AORTA) IMAGES COMPLETED DATE/TIME: 04/04/2020 5:08 pm REASON FOR STUDY: right flank pain COMPARISON: 04/03/2020 TECHNIQUE: Dynamic and static grayscale images acquired of the kidneys and bladder and recorded on P ACS. Additional selected color Doppler and spectral images recorded. LIMITATIONS: None. FINDINGS: RIGHT KIDNEY: Normal size, 12.3 cm. Normal echogenicity. No solid or suspicious masses. No hydronephrosis. No calcifications. LEFT KIDNEY: Normal size, 11.9 cm. Normal echogenicity. No solid or suspicious masses. No hydronephr osis. No calcifications. BLADDER: Bladder is not seen. OTHER FINDINGS: Intrauterine gestation in a breech lie. heart rate 133. IMPRESSION: Normal renal ultrasound. The bladder is not seen. Intrauterine gestation as described. TECHNICAL DOCUMENTATION: JOB ID: [id number] 2010 [employer]- All Rights Reserved Reading location - IP/workstation name: [email or web address]
[2020-04-04 18:49] VITALS: BP 124/73
== END 2020-04-04 18:48 | disposition home or self-care (01) ==
LOC: ER 11:35
DX: O23.42 Unspecified infection of urinary tract in pregnancy, second trimester (principal); N39.0 Urinary tract infection, site not specified; O16.2 Unspecified maternal hypertension, second trimester; O26.892 Other specified pregnancy related conditions, second trimester; R10.9 Unspecified abdominal pain; R53.1 Weakness; Z3A.22 22 weeks gestation of pregnancy; O99.512 Diseases of the respiratory system complicating pregnancy, second trimester; J45.909 Unspecified asthma, uncomplicated; Z79.899 Other long term (current) drug therapy; Z88.8 Allergy status to other drugs, medicaments and biological substances
CPT/HCPCS: 99285; 96365; 36415; 87040; 85025; 80053; 81001; 76770; J7120; J0696

== ENCOUNTER 2020-04-20 17:50 | Outpatient (CLI) | payer MEDICAID ==
[2020-04-20] MEDS ORDERED: ACETAMINOPHEN 325 MG TABLET PO PRN (18:25)
[2020-04-20 18:47] LABS: HEMATOCRIT 34.6 % (36.0-47.0); HEMOGLOBIN 11.9 g/dL (12.0-15.5); MEAN CORPUSCULAR HEMOGLOBIN 30.6 pg (27.0-33.4); MEAN CORPUSCULAR HGB CONC 34.5 g/dL (32.0-36.0); MEAN CORPUSCULAR VOLUME 89 fl (80-97); PLATELET COUNT 372 10^3/uL (150-450); WHITE BLOOD COUNT 16.9 10^3/uL (4.0-10.5)
[2020-04-20] MEDS ORDERED: BUTALB/ACETAMINOPHEN/CAFFEINE 1 TAB EACH PO PRN (18:48)
[2020-04-20] MEDS: BUTALB/ACETAMINOPHEN/CAFFEINE 1 TAB EACH ONE ×2 (18:54→18:56)
[2020-04-20] MEDS ORDERED: ACETAMINOPHEN 325 MG TABLET ONE (18:58)
[2020-04-20 19:08] LABS: URINE AMPHETAMINES SCREEN NEGATIVE; URINE BARBITURATES SCREEN NEGATIVE; URINE BENZODIAZEPINES SCREEN NEGATIVE; URINE COCAINE SCREEN NEGATIVE; URINE MARIJUANA (THC) SCREEN NEGATIVE; URINE METHADONE SCREEN NEGATIVE; URINE PHENCYCLIDINE SCREEN NEGATIVE
[2020-04-20 19:09] LABS: ALBUMIN 3.4 g/dL (3.5-5.0); ALKALINE PHOSPHATASE 105 U/L (38-126); ANION GAP 7 (5-19); ASPARTATE AMINO TRANSFERASE 22 U/L (14-36); BILIRUBIN,DIRECT 0.3 mg/dL (0.0-0.4); BILIRUBIN,TOTAL 0.4 mg/dL (0.2-1.3); BLOOD UREA NITROGEN 4 mg/dL (7-20); CALCIUM 8.8 mg/dL (8.4-10.2); CARBON DIOXIDE 24 mmol/L (22-30); CHLORIDE 105 mmol/L (98-107); GLUCOSE 93 mg/dL (75-110); POTASSIUM 3.8 mmol/L (3.6-5.0); TOTAL PROTEIN 6.6 g/dL (6.3-8.2); URIC ACID 2.5 mg/dL (2.5-6.2)
[2020-04-20 19:11] LABS: UR PRO/CREAT RATIO RESULT 0.2 mg/mg (0.0-0.2); URINE CREATININE 80.5 mg/dL (16-327); URINE PROTEIN 15.7 mg/dL (<12)
[2020-04-20 20:33] LABS: AMORPHOUS SEDIMENT,URINE TRACE /HPF; APPEARANCE,URINE CLOUDY; BILIRUBIN,URINE NEGATIVE (NEGATIVE); COLOR,URINE YELLOW; GLUCOSE, URINE NEGATIVE (NEGATIVE); KETONES,URINE NEGATIVE (NEGATIVE); LEUKOCYTE ESTERASE,URINE NEGATIVE (NEGATIVE); NITRITE,URINE NEGATIVE (NEGATIVE); PROTEIN,URINE NEGATIVE (NEGATIVE); URINE SPECIFIC GRAVITY 1.015; UROBILINOGEN,URINE NEGATIVE mg/dL (<2.0)
== END 2020-04-20 19:43 | disposition home or self-care (01) ==
LOC: LC 17:50
PROVIDERS: ATTEND Obstetrics & Gynecology
DX: O16.2 Unspecified maternal hypertension, second trimester (principal); O99.342 Other mental disorders complicating pregnancy, second trimester; F31.9 Bipolar disorder, unspecified; H53.8 Other visual disturbances; R51 Headache; Z3A.24 24 weeks gestation of pregnancy; Z87.891 Personal history of nicotine dependence; Z88.6 Allergy status to analgesic agent; Z88.8 Allergy status to other drugs, medicaments and biological substances; Z91.040 Latex allergy status; Z91.013 Allergy to seafood; Z91.048 Other nonmedicinal substance allergy status
CPT/HCPCS: 59899; 36415; 83615; 84156; 84550; 82570; 85027; 80053; 81001; 80307; J3490 ×2

== ENCOUNTER 2020-04-28 15:49 | Outpatient (CLI) | payer MEDICAID ==
[2020-04-28 15:54] VITALS: BP 151/94
[2020-04-28 17:45] LABS: APPEARANCE,URINE SLIGHTLY-CLOUDY; BILIRUBIN,URINE NEGATIVE (NEGATIVE); COLOR,URINE YELLOW; GLUCOSE, URINE NEGATIVE (NEGATIVE); KETONES,URINE NEGATIVE (NEGATIVE); LEUKOCYTE ESTERASE,URINE NEGATIVE (NEGATIVE); NITRITE,URINE NEGATIVE (NEGATIVE); PROTEIN,URINE NEGATIVE (NEGATIVE); URINE SPECIFIC GRAVITY 1.018; UROBILINOGEN,URINE NEGATIVE mg/dL (<2.0)
[2020-04-28 18:01] LABS: URINE AMPHETAMINES SCREEN NEGATIVE; URINE BARBITURATES SCREEN NEGATIVE; URINE BENZODIAZEPINES SCREEN NEGATIVE; URINE COCAINE SCREEN NEGATIVE; URINE MARIJUANA (THC) SCREEN NEGATIVE; URINE METHADONE SCREEN NEGATIVE; URINE PHENCYCLIDINE SCREEN NEGATIVE
[2020-04-28] MEDS ORDERED: OXYCODONE-ACETAMINOPHEN 5-325 MG TABLET PO ONE (19:30)
== END 2020-04-28 18:25 | disposition home or self-care (01) ==
LOC: EDSTATUS 16:41 → LC 16:42
PROVIDERS: ATTEND Obstetrics & Gynecology
DX: O26.892 Other specified pregnancy related conditions, second trimester (principal); M54.9 Dorsalgia, unspecified; Z3A.25 25 weeks gestation of pregnancy
CPT/HCPCS: 80307; 81001

== ENCOUNTER 2020-04-29 19:32 | Outpatient (CLI) | payer MEDICAID ==
[2020-04-29 20:02] LABS: APPEARANCE,URINE CLEAR; BILIRUBIN,URINE NEGATIVE (NEGATIVE); COLOR,URINE STRAW; GLUCOSE, URINE NEGATIVE (NEGATIVE); KETONES,URINE NEGATIVE (NEGATIVE); LEUKOCYTE ESTERASE,URINE NEGATIVE (NEGATIVE); NITRITE,URINE NEGATIVE (NEGATIVE); PROTEIN,URINE NEGATIVE (NEGATIVE); URINE SPECIFIC GRAVITY 1.006; UROBILINOGEN,URINE NEGATIVE mg/dL (<2.0)
[2020-04-29 20:26] LABS: URINE AMPHETAMINES SCREEN NEGATIVE; URINE BARBITURATES SCREEN NEGATIVE; URINE BENZODIAZEPINES SCREEN NEGATIVE; URINE COCAINE SCREEN NEGATIVE; URINE MARIJUANA (THC) SCREEN NEGATIVE; URINE METHADONE SCREEN NEGATIVE; URINE PHENCYCLIDINE SCREEN NEGATIVE
== END 2020-04-29 20:35 | disposition home or self-care (01) ==
LOC: LC 19:32
PROVIDERS: ATTEND Obstetrics & Gynecology
DX: O47.02 False labor before 37 completed weeks of gestation, second trimester (principal); Z3A.25 25 weeks gestation of pregnancy
CPT/HCPCS: 80307; 81001

== ENCOUNTER 2020-04-29 21:54 | Outpatient (CLI) | payer MEDICAID ==
--- NOTE | 2020-04-29 22:57 | RADIOLOGY REPORT (SQ) ---
EXAM DESCRIPTION: Ultrasound abdomen Limited CLINICAL HISTORY: 29 years Female Right Upper quadrant U/S for mid abdominal pain TECHNIQUE: Right upper quadrant ultrasound was performed. COMPARISON: April 04, 2020 FINDINGS: Pancreas: Visualized portions are unremarkable. Liver: Homogeneous in appearance with diffusely increased echogenicity, measuring up to 16.6 cm Portal venous flow is hepatopedal, normal. Gallbladder: Status post cholecystectomy. Common bile duct: 5.0 mm. Right kidney: Measures up to 12.7 cm. No hydronephrosis. IMPRESSION: 1. Status post cholecystectomy. 2. Increased echogenicity is of the hepatic parenchyma is nonspecific but can be seen in the setting of hepatic steatosis. Clinical correlation is advised.
== END 2020-04-29 23:23 | disposition home or self-care (01) ==
LOC: LC 21:54
PROVIDERS: ATTEND Obstetrics & Gynecology
DX: O26.892 Other specified pregnancy related conditions, second trimester (principal); R42 Dizziness and giddiness; Z3A.25 25 weeks gestation of pregnancy
CPT/HCPCS: 76705

== ENCOUNTER 2020-05-16 16:20 | Emergency (ER) | payer MEDICAID ==
[2020-05-16 16:26] VITALS: BP 154/89
[2020-05-16] MEDS ORDERED: ACETAMINOPHEN 325 MG TABLET PO ONE (16:36)
--- NOTE | 2020-05-16 17:04 | RADIOLOGY REPORT (SQ) ---
EXAM DESCRIPTION: ANKLE RIGHT COMPLETE IMAGES COMPLETED DATE/TIME: 05/16/2020 4:49 pm REASON FOR STUDY: injury COMPARISON: 09/22/2016. NUMBER OF VIEWS: Three views. TECHNIQUE: AP, lateral, and oblique radiographic images acquired of the right ankle. LIMITATIONS: None. FINDINGS: MINERALIZATION: Normal. BONES: No acute fracture or dislocation. No worrisome bone lesions. JOINTS: No effusions. SOFT TISSUES: Lateral soft tissue swelling. No foreign body. OTHER: No other significant finding. IMPRESSION: SOFT TISSUE SWELLING. NO FRACTURE. TECHNICAL DOCUMENTATION: JOB ID: [id number] 2010 [employer]- All Rights Reserved Reading location - IP/workstation name: [email or web address]
--- NOTE | 2020-05-16 17:10 | ER Document Report ---
HPI - HPI Patient complains to provider of: ankle injury Time Seen by Provider: 05/16/20 16:31 Pain Level: 3 Context: 30-year-old female who is approximately 28 weeks she is a 5 para 3 with 1 miscarriage presents to the emergency room complaining of right ankle pain. Patient states she ran outside to try to catch her son who had run out of the house when she tripped in a hole twisting her right ankle. States she did fall forward but landed on her hands and knees. Denies any abdominal trauma. Denies any vaginal bleeding no discharge no abdominal pain. OB care is up-to-date. History of a previous surgery to her right ankle in 2017 for tendon damage. States is able to walk but is painful. Did not take any medications for pain. Discussed the need for x-ray with patient. She is aware of the risks of radiation to her unborn child. She is agreeable to the x-ray. - REPRODUCTIVE LMP: 28 weeks Reproductive: REPORTS: : - MUSCULOSKELETAL Musculoskeletal: REPORTS: Extremity pain - right ankle Past Medical History - General Information source: Patient - Social History Smoking Status: Never Smoker Chew tobacco use (# tins/day): No Frequency of alcohol use: None Drug Abuse: None Family History: CAD, COPD, CVA, DM, Hyperlipidemia, Hypertension Patient has homicidal ideation: No - Past Medical History Cardiac Medical History: Reports: Hx Hypertension Denies: Hx Heart Attack Pulmonary Medical History: Reports: Hx Asthma - resolved Denies: Hx Bronchitis, Hx COPD, Hx Pneumonia Neurological Medical History: Reports: Hx Migraine. Denies: Hx Seizures Renal/ Medical History: Reports: Hx Kidney Stones, Hx Pelvic Inflammatory Disease. Denies: Hx Peritoneal Dialysis Musculoskeletal Medical History: Denies Hx Arthritis, Reports Hx Musculoskeletal Trauma Psychiatric Medical History: Reports: Hx Bipolar Disorder, Hx Depression, Hx Post Traumatic Stress Disorder Traumatic Medical History: Reports: Hx Fractures - Fractured ankle Past Surgical History: Reports: Hx Cholecystectomy, Hx Oral Surgery - wisdom tooth removal 07/2016, Hx Orthopedic Surgery - right ankle - Immunizations Immunizations up to date: Yes Hx Diphtheria, Pertussis, Tetanus Vaccination: Yes Vertical Provider Document - CONSTITUTIONAL Agree With Documented VS: Yes Exam Limitations: No Limitations General Appearance: Mild Distress - INFECTION CONTROL TRAVEL OUTSIDE OF THE [place] IN LAST 30 DAYS: No - HEENT HEENT: Atraumatic, Normocephalic - NECK Neck: Normal Inspection, Supple - RESPIRATORY Respiratory: Breath Sounds Normal, No Respiratory Distress, Chest Non-Tender - CARDIOVASCULAR Cardiovascular: Regular Rate, Regular Rhythm, No Murmur - MUSCULOSKELETAL/EXTREMETIES Musculoskeletal/Extremeties: Tender - No sudden swelling noted to the right lateral malleus. There is painful range of motion with flexion extension and eversion of the right ankle. There is no obvious deformity noted. - NEURO Level of Consciousness: Awake, Alert Motor/Sensory: No Motor Deficit, No Sensory Deficit Notes: Positive right pedal pulse. Capillary refill less than 3 seconds. Normal sensation to painful and light stimuli of the right foot. Course - Re-evaluation Re-evalutation: 05/16/20 17:09 Patient is resting comfortably with decreased pain reviewed negative x-ray results with patient. Ankle stirrup splint applied by nursing staff as documented. Patient refused crutches. Counseled to continue with Tylenol, not to exceed 8 tablets in 24 hours. Rest, ice, elevate her right foot. Outpatient follow-up with orthopedics if not improving in 2 to 3 days. Patient was provided with the on-call physician. Patient was given strict return to the emergency room guidelines. Return for any new or worsening symptoms. All questions were answered. Patient verbalized understanding and agrees with plan of care. - Vital Signs Vital signs: Temp Pulse Resp BP Pulse Ox 98.5 F 97 16 154/89 H 98 05/16/20 16:30 05/16/20 16:24 05/16/20 16:24 05/16/20 16:24 05/16/20 16:24 - Diagnostic Test Radiology reviewed: Reports reviewed Procedures - Immobilization Right Ankle Time completed: 17:10 Pre-Proc Neuro Vasc Exam: Normal Immobilizer type: Ankle stirrup Performed by: PCT Post-Proc Neuro Vasc Exam: Normal Alignment checked and good: Yes Discharge - Discharge Clinical Impression: Right ankle sprain Qualifiers: Encounter type: initial encounter Involved ligament of ankle: unspecified ligament Qualified Code(s): S93.401A - Sprain of unspecified ligament of right ankle, initial encounter Condition: Stable Disposition: HOME, SELF-CARE Instructions: Ankle Stirrup Splint ([facility]), Sprained Ankle ([facility]) Additional Instructions: Tylenol as needed for pain not to exceed 8 tablets in 24 hours. Outpatient follow-up with orthopedics if not improving in 2 to 3 days. Return to the emergency room for any new or worsening symptoms. Your x-ray does not show any acute fracture. You have a sprained ankle. Keep the area elevated, apply ice 20 minutes every 2 hours, and use crutches as needed. You should take ibuprofen 600 mg every 6 hours as needed for pain. Please return if you have worsening pain and swelling, fever greater than 101, you notice spreading redness from the area, or have any other symptoms that are concerning to you. Please follow-up with orthopedic surgery if your symptoms have not improved in the next 2-3 weeks. Referrals: TIARA SMITH JR, DO [ACTIVE PROVISIONAL STAFF] - Follow up as needed
== END 2020-05-16 17:21 | disposition home or self-care (01) ==
LOC: ER 16:20
DX: O9A.219 Injury, poisoning and certain other consequences of external causes complicating pregnancy, unspecified trimester (principal); S93.401A Sprain of unspecified ligament of right ankle, initial encounter; W01.0XXA Fall on same level from slipping, tripping and stumbling without subsequent striking against object, initial encounter; Y93.89 Activity, other specified; Z3A.00 Weeks of gestation of pregnancy not specified
CPT/HCPCS: 99283; 73610; J3490

== ENCOUNTER 2020-05-21 17:26 | Outpatient (CLI) | payer MEDICAID ==
[2020-05-21 17:42] VITALS: BP 176/92
[2020-05-21] MEDS ORDERED: ACETAMINOPHEN 325 MG TABLET PO ONE (18:24)
[2020-05-21] MEDS ORDERED: ACETAMINOPHEN 325 MG TABLET ONE (18:30)
[2020-05-21 18:46] LABS: APPEARANCE,URINE SLIGHTLY-CLOUDY; BILIRUBIN,URINE NEGATIVE (NEGATIVE); COLOR,URINE YELLOW; GLUCOSE, URINE NEGATIVE (NEGATIVE); KETONES,URINE NEGATIVE (NEGATIVE); LEUKOCYTE ESTERASE,URINE NEGATIVE (NEGATIVE); NITRITE,URINE NEGATIVE (NEGATIVE); PROTEIN,URINE NEGATIVE (NEGATIVE); URINE SPECIFIC GRAVITY 1.012; UROBILINOGEN,URINE NEGATIVE mg/dL (<2.0)
[2020-05-21 19:08] LABS: URINE AMPHETAMINES SCREEN NEGATIVE; URINE BARBITURATES SCREEN NEGATIVE; URINE BENZODIAZEPINES SCREEN NEGATIVE; URINE COCAINE SCREEN NEGATIVE; URINE MARIJUANA (THC) SCREEN NEGATIVE; URINE METHADONE SCREEN NEGATIVE; URINE PHENCYCLIDINE SCREEN NEGATIVE
[2020-05-21 19:11] LABS: ABSOLUTE EOSINOPHILS # (AUTO) 0.2 10^3/uL (0.0-0.6); ABSOLUTE LYMPHOCYTES (AUTO) 2.2 10^3/uL (0.5-4.7); ABSOLUTE MONOCYTES (AUTO) 1.3 10^3/uL (0.1-1.4); ABSOLUTE NEUT (AUTO) 13.2 10^3/uL (1.7-8.2); BASOPHILS % (AUTO) 0.1 % (0-2); EOSINOPHILS % (AUTO) 1.2 % (0-6); HEMATOCRIT 33.6 % (36.0-47.0); HEMOGLOBIN 11.8 g/dL (12.0-15.5); LYMPHOCYTES % (AUTO) 13.3 % (13-45); MEAN CORPUSCULAR HEMOGLOBIN 30.6 pg (27.0-33.4); MEAN CORPUSCULAR HGB CONC 35.2 g/dL (32.0-36.0); MEAN CORPUSCULAR VOLUME 87 fl (80-97); MONOCYTES % (AUTO) 7.5 % (3-13); PLATELET COUNT 391 10^3/uL (150-450); RED BLOOD COUNT 3.86 10^6/uL (3.72-5.28); RED CELL DISTRIBUTION WIDTH 12.4 % (11.5-14.0); SEGMENTED NEUTROPHILS % (AUTO) 77.9 % (42-78); TOTAL CELLS COUNTED % (AUTO) 100 %; WHITE BLOOD COUNT 16.9 10^3/uL (4.0-10.5)
--- NOTE | 2020-05-21 19:22 | RADIOLOGY REPORT (SQ) ---
EXAM DESCRIPTION: CHEST 2 VIEWS IMAGES COMPLETED DATE/TIME: 05/21/2020 7:09 pm REASON FOR STUDY: Chest pressure COMPARISON: 10/30/2018 TECHNIQUE: Frontal and lateral radiographic views of the chest acquired. NUMBER OF VIEWS: Two view. LIMITATIONS: None. FINDINGS: LUNGS AND PLEURA: No pneumothorax. No consolidation or pleural effusion. MEDIASTINUM AND HILAR STRUCTURES: Stable. HEART AND VASCULAR STRUCTURES: Stable. BONES: No acute findings. HARDWARE: None in the chest. OTHER: No other significant finding. IMPRESSION: NO ACUTE FINDINGS. TECHNICAL DOCUMENTATION: JOB ID: [id number] 2010 [employer]- All Rights Reserved Reading location - IP/workstation name: [email or web address]
[2020-05-21 19:30] LABS: ALBUMIN 3.6 g/dL (3.5-5.0); ALKALINE PHOSPHATASE 154 U/L (38-126); ANION GAP 12 (5-19); ASPARTATE AMINO TRANSFERASE 22 U/L (14-36); BILIRUBIN,DIRECT 0.2 mg/dL (0.0-0.4); BILIRUBIN,TOTAL 0.4 mg/dL (0.2-1.3); BLOOD UREA NITROGEN 6 mg/dL (7-20); CARBON DIOXIDE 25 mmol/L (22-30); CHLORIDE 101 mmol/L (98-107); GLUCOSE 89 mg/dL (75-110); POTASSIUM 4.1 mmol/L (3.6-5.0); TOTAL PROTEIN 6.5 g/dL (6.3-8.2); URIC ACID 2.8 mg/dL (2.5-6.2)
[2020-05-21 20:13] LABS: UR PRO/CREAT RATIO RESULT 0.2 mg/mg (0.0-0.2); URINE CREATININE 86.5 mg/dL (16-327); URINE PROTEIN 17.5 mg/dL (<12)
--- NOTE | 2020-05-21 21:49 | EKG REPORT ---
SEVERITY:- ABNORMAL ECG - SINUS RHYTHM VENTRICULAR PREMATURE COMPLEX CONSIDER LEFT VENTRICULAR HYPERTROPHY : Confirmed by: Sunita Hudson MD 21-May-2020 21:49:17
== END 2020-05-21 20:21 | disposition home or self-care (01) ==
LOC: EDSTATUS 17:55 → LC 17:57
PROVIDERS: ATTEND Obstetrics & Gynecology
DX: O16.3 Unspecified maternal hypertension, third trimester (principal); O26.893 Other specified pregnancy related conditions, third trimester; R51.9 Headache, unspecified; R07.9 Chest pain, unspecified; R06.02 Shortness of breath; Z3A.28 28 weeks gestation of pregnancy
CPT/HCPCS: 36415; 83615; 84156; 84550; 82570; 85025; 80053; 81001; 80307; 71046; 93005; 93010; 59899; J3490

== ENCOUNTER 2020-05-30 14:41 | Emergency (ER) | payer MEDICAID ==
[2020-05-30 14:59] VITALS: BP 144/87
== END 2020-05-30 16:30 | disposition left against medical advice (07) ==
LOC: ER 14:41
DX: Z53.21 Procedure and treatment not carried out due to patient leaving prior to being seen by health care provider (principal)

== ENCOUNTER 2020-05-31 16:37 | Emergency (ER) | payer MEDICAID ==
[2020-05-31 16:48] VITALS: BP 156/87
--- NOTE | 2020-05-31 17:47 | ER Document Report ---
ED Medical Screen (RME) - General Stated Complaint: BACK PAIN Time Seen by Provider: 05/31/20 17:39 Notes: Patient is a 30-year-old female that 30 weeks gestation who presents emergency department with back pain. Patient states that she has a history of preeclampsia. She called her DENT REMOVER and was referred to the emergency department. Exam: Patient appears to be in moderate distress. I called Dr. Carson, the DENT REMOVER on-call. He would like the patient brought upst airs to labor and delivery. I have greeted and performed a rapid initial assessment of this patient. A comprehensive ED assessment and evaluation of the patient, analysis of test results and completion of medical decision making process will be conducted by an additional ED providers. TRAVEL OUTSIDE OF THE [place] IN LAST 30 DAYS: No - Related Data Allergies/Adverse Reactions: morphine [Morphine] Allergy (Severe, Verified 05/21/20 18:33) Difficulty breathing/itch shellfish derived Allergy (Severe, Verified 05/21/20 18:33) Anaphylaxis iodine [Iodine] Allergy (Intermediate, Verified 05/21/20 18:33) RASH latex [Latex] Allergy (Intermediate, Verified 05/21/20 18:33) RASH diphenhydramine [From Benadryl] Allergy (Verified 05/21/20 18:33) Penicillins Allergy (Verified 05/21/20 18:33) verapamil Allergy (Verified 05/21/20 18:33) Tachycardia Past Medical History - Social History Family history: Reviewed & Not Pertinent, Hypertension, Other - copd - Past Medical History Cardiac Medical History: Reports: Hx Hypertension Denies: Hx Heart Attack Pulmonary Medical History: Reports: Hx Asthma - resolved Denies: Hx Bronchitis, Hx COPD, Hx Pneumonia Neurological Medical History: Reports: Hx Migraine. Denies: Hx Seizures Renal/ Medical History: Reports: Hx Kidney Stones, Hx Pelvic Inflammatory Disease. Denies: Hx Peritoneal Dialysis Musculoskeltal Medical History: Denies Hx Arthritis, Reports Hx Musculoskeletal Trauma Psychiatric Medical History: Reports: Hx Bipolar Disorder, Hx Depression, Hx Post Traumatic Stress Disorder Traumatic Medical History: Reports: Hx Fractures - Fractured ankle Past Surgical History: Reports: Hx Cholecystectomy, Hx Oral Surgery - wisdom tooth removal 07/2016, Hx Orthopedic Surgery - right ankle - Immunizations Immunizations up to date: Yes Hx Diphtheria, Pertussis, Tetanus Vaccination: Yes Physical Exam - Vital signs Vitals: Temp Pulse Resp BP Pulse Ox 99.8 F 120 H 18 156/87 H 100 05/31/20 16:45 05/31/20 16:45 05/31/20 16:45 05/31/20 16:45 05/31/20 16:45 Course - Vital Signs Vital signs: Temp Pulse Resp BP Pulse Ox 99.8 F 120 H 18 156/87 H 100 05/31/20 16:45 05/31/20 16:45 05/31/20 16:45 05/31/20 16:45 05/31/20 16:45
--- NOTE | 2020-05-31 17:57 | ER Document Report ---
HPI - HPI Time Seen by Provider: 05/31/20 17:39 Context: Patient is a 30-year-old female that 30 weeks gestation who presents emergency department with back pain. Patient states that she has a history of preeclampsia. She called her CEMENTER HAND and was referred to the emergency department. Patient has a history of scoliosis. - ROS Systems Reviewed and Negative: Yes All other systems reviewed and negative - CONSTITUTIONAL Constitutional: DENIES: Fever, Chills - GASTROINTESTINAL Gastrointestinal: REPORTS: Abdominal Pain - REPRODUCTIVE Reproductive: REPORTS: : - MUSCULOSKELETAL Musculoskeletal: REPORTS: Back Pain - Bilateral - DERM Skin Color: Normal Skin Problems: None Past Medical History - General Information source: Patient - Social History Smoking Status: Unknown if Ever Smoked Family History: CAD, COPD, CVA, DM, Hyperlipidemia, Hypertension - Past Medical History Cardiac Medical History: Reports: Hx Hypertension Denies: Hx Heart Attack Pulmonary Medical History: Reports: Hx Asthma - resolved Denies: Hx Bronchitis, Hx COPD, Hx Pneumonia Neurological Medical History: Reports: Hx Migraine. Denies: Hx Seizures Renal/ Medical History: Reports: Hx Kidney Stones, Hx Pelvic Inflammatory Disease. Denies: Hx Peritoneal Dialysis Musculoskeletal Medical History: Denies Hx Arthritis, Reports Hx Musculoskeletal Trauma Psychiatric Medical History: Reports: Hx Bipolar Disorder, Hx Depression, Hx Post Traumatic Stress Disorder Traumatic Medical History: Reports: Hx Fractures - Fractured ankle Past Surgical History: Reports: Hx Cholecystectomy, Hx Oral Surgery - wisdom tooth removal 07/2016, Hx Orthopedic Surgery - right ankle - Immunizations Immunizations up to date: Yes Hx Diphtheria, Pertussis, Tetanus Vaccination: Yes Vertical Provider Document - CONSTITUTIONAL Agree With Documented VS: Yes Exam Limitations: No Limitations General Appearance: Moderate Distress - INFECTION CONTROL TRAVEL OUTSIDE OF THE [place] IN LAST 30 DAYS: No - HEENT HEENT: Atraumatic, Normocephalic, PERRLA - NECK Neck: Normal Inspection - RESPIRATORY Respiratory: No Respiratory Distress - MUSCULOSKELETAL/EXTREMETIES Musculoskeletal/Extremeties: FROM - NEURO Level of Consciousness: Awake, Alert, Appropriate Motor/Sensory: No Motor Deficit, No Sensory Deficit - DERM Integumentary: No Rash Course - Re-evaluation Re-evalutation: 05/31/[address] Carson, the CEMENTER HAND on-call. He would like the patient brought upstairs to labor and delivery. - Vital Signs Vital signs: Temp Pulse Resp BP Pulse Ox 99.8 F 120 H 18 156/87 H 100 05/31/20 16:45 05/31/20 16:45 05/31/20 16:45 05/31/20 16:45 05/31/20 16:45 Discharge - Discharge Clinical Impression: Back pain Qualifiers: Back pain location: low back pain Chronicity: unspecified Back pain laterality: unspecified Sciatica presence: with sciatica Sciatica laterality: bilateral sciatica Qualified Code(s): M54.42 - Lumbago with sciatica, left side Condition: Stable Disposition: LABOR CHECK Additional Instructions: You were seen today in emergency department for back pain. Go upstairs for a labor check.
== END 2020-05-31 17:45 | disposition admitted as inpatient to this hospital (09) ==
LOC: ER 16:37
DX: O26.893 Other specified pregnancy related conditions, third trimester (principal); M54.42 Lumbago with sciatica, left side; Z3A.30 30 weeks gestation of pregnancy
CPT/HCPCS: 99285

== ENCOUNTER 2020-05-31 18:05 | Outpatient (CLI) | payer MEDICAID ==
[2020-05-31 18:53] LABS: APPEARANCE,URINE CLEAR; BILIRUBIN,URINE NEGATIVE (NEGATIVE); COLOR,URINE STRAW; GLUCOSE, URINE NEGATIVE (NEGATIVE); KETONES,URINE NEGATIVE (NEGATIVE); LEUKOCYTE ESTERASE,URINE NEGATIVE (NEGATIVE); NITRITE,URINE NEGATIVE (NEGATIVE); PROTEIN,URINE NEGATIVE (NEGATIVE); URINE SPECIFIC GRAVITY 1.005; UROBILINOGEN,URINE NEGATIVE mg/dL (<2.0)
[2020-05-31 19:17] LABS: URINE AMPHETAMINES SCREEN NEGATIVE; URINE BARBITURATES SCREEN NEGATIVE; URINE BENZODIAZEPINES SCREEN NEGATIVE; URINE COCAINE SCREEN NEGATIVE; URINE MARIJUANA (THC) SCREEN NEGATIVE; URINE METHADONE SCREEN NEGATIVE; URINE PHENCYCLIDINE SCREEN NEGATIVE
== END 2020-05-31 19:43 | disposition home or self-care (01) ==
LOC: LC 18:05
PROVIDERS: ATTEND Obstetrics & Gynecology Gynecology
DX: O26.893 Other specified pregnancy related conditions, third trimester (principal); M54.9 Dorsalgia, unspecified; Z3A.30 30 weeks gestation of pregnancy
CPT/HCPCS: 80307; 81001

== ENCOUNTER 2020-06-04 22:24 | Emergency (ER) | payer MEDICAID ==
[2020-06-04 22:54] VITALS: BP 153/85
== END 2020-06-05 00:35 | disposition left against medical advice (07) ==
LOC: ER 22:24
DX: Z53.21 Procedure and treatment not carried out due to patient leaving prior to being seen by health care provider (principal)

== ENCOUNTER 2020-06-05 17:18 | Outpatient (CLI) | payer MEDICAID ==
[2020-06-05 18:20] LABS: APPEARANCE,URINE SLIGHTLY-CLOUDY; BILIRUBIN,URINE NEGATIVE (NEGATIVE); COLOR,URINE YELLOW; GLUCOSE, URINE NEGATIVE (NEGATIVE); KETONES,URINE NEGATIVE (NEGATIVE); LEUKOCYTE ESTERASE,URINE NEGATIVE (NEGATIVE); NITRITE,URINE NEGATIVE (NEGATIVE); PROTEIN,URINE 100 mg/dL (NEGATIVE); URINE SPECIFIC GRAVITY 1.021; UROBILINOGEN,URINE NEGATIVE mg/dL (<2.0)
[2020-06-05 18:35] LABS: URINE AMPHETAMINES SCREEN NEGATIVE; URINE BARBITURATES SCREEN NEGATIVE; URINE BENZODIAZEPINES SCREEN NEGATIVE; URINE COCAINE SCREEN NEGATIVE; URINE MARIJUANA (THC) SCREEN NEGATIVE; URINE METHADONE SCREEN NEGATIVE; URINE PHENCYCLIDINE SCREEN NEGATIVE
[2020-06-05 18:58] LABS: ABSOLUTE EOSINOPHILS # (AUTO) 0.1 10^3/uL (0.0-0.6); ABSOLUTE LYMPHOCYTES (AUTO) 2.3 10^3/uL (0.5-4.7); ABSOLUTE MONOCYTES (AUTO) 1.6 10^3/uL (0.1-1.4); ABSOLUTE NEUT (AUTO) 11.6 10^3/uL (1.7-8.2); BASOPHILS % (AUTO) 0.2 % (0-2); HEMOGLOBIN 11.1 g/dL (12.0-15.5); LYMPHOCYTES % (AUTO) 14.6 % (13-45); MEAN CORPUSCULAR HEMOGLOBIN 29.9 pg (27.0-33.4); MEAN CORPUSCULAR HGB CONC 34.7 g/dL (32.0-36.0); MEAN CORPUSCULAR VOLUME 86 fl (80-97); MONOCYTES % (AUTO) 10.2 % (3-13); PLATELET COUNT 379 10^3/uL (150-450); RED BLOOD COUNT 3.72 10^6/uL (3.72-5.28); RED CELL DISTRIBUTION WIDTH 12.6 % (11.5-14.0); TOTAL CELLS COUNTED % (AUTO) 100 %; WHITE BLOOD COUNT 15.6 10^3/uL (4.0-10.5)
[2020-06-05 19:15] LABS: ALBUMIN 3.4 g/dL (3.5-5.0); ALKALINE PHOSPHATASE 179 U/L (38-126); ANION GAP 8 (5-19); ASPARTATE AMINO TRANSFERASE 23 U/L (14-36); BILIRUBIN,DIRECT 0.3 mg/dL (0.0-0.4); BILIRUBIN,TOTAL 0.5 mg/dL (0.2-1.3); BLOOD UREA NITROGEN 6 mg/dL (7-20); CALCIUM 8.4 mg/dL (8.4-10.2); CARBON DIOXIDE 22 mmol/L (22-30); CHLORIDE 106 mmol/L (98-107); GLUCOSE 79 mg/dL (75-110); POTASSIUM 3.4 mmol/L (3.6-5.0); TOTAL PROTEIN 6.6 g/dL (6.3-8.2); URIC ACID 3.4 mg/dL (2.5-6.2)
[2020-06-05 20:13] LABS: UR PRO/CREAT RATIO RESULT 0.2 mg/mg (0.0-0.2); URINE PROTEIN 27.6 mg/dL (<12)
== END 2020-06-05 20:31 | disposition home or self-care (01) ==
LOC: LC 17:18
PROVIDERS: ATTEND Obstetrics & Gynecology
DX: O16.3 Unspecified maternal hypertension, third trimester (principal); Z3A.31 31 weeks gestation of pregnancy
CPT/HCPCS: 36415; 80053; 80307; 81001; 82570; 83615; 84156; 84550; 85025

== ENCOUNTER 2020-06-08 18:20 | Outpatient (CLI) | payer MEDICAID ==
[2020-06-08] MEDS ORDERED: ACETAMINOPHEN 325 MG TABLET PO ONE (18:56)
[2020-06-08] MEDS ORDERED: LABETALOL HCL 200 MG TABLET PO ONE (18:56)
[2020-06-08] MEDS ORDERED: HYDRALAZINE HCL INJ/PF 20 MG/1 ML SDV ONE (18:58)
[2020-06-08] MEDS ORDERED: ACETAMINOPHEN 325 MG TABLET ONE (18:58)
[2020-06-08] MEDS ORDERED: LABETALOL HCL 200 MG TABLET ONE (18:58)
[2020-06-08] MEDS ORDERED: RINGERS SOLUTION,LACTATED 1,000 ML IV PRN (19:00)
[2020-06-08 19:25] LABS: HEMATOCRIT 31.9 % (36.0-47.0); HEMOGLOBIN 11.2 g/dL (12.0-15.5); MEAN CORPUSCULAR VOLUME 86 fl (80-97); PLATELET COUNT 375 10^3/uL (150-450); RED BLOOD COUNT 3.72 10^6/uL (3.72-5.28); RED CELL DISTRIBUTION WIDTH 12.4 % (11.5-14.0); WHITE BLOOD COUNT 14.1 10^3/uL (4.0-10.5)
[2020-06-08 19:25] LABS: APPEARANCE,URINE SLIGHTLY-CLOUDY; BILIRUBIN,URINE NEGATIVE (NEGATIVE); COLOR,URINE YELLOW; GLUCOSE, URINE NEGATIVE (NEGATIVE); KETONES,URINE NEGATIVE (NEGATIVE); LEUKOCYTE ESTERASE,URINE SMALL (NEGATIVE); NITRITE,URINE NEGATIVE (NEGATIVE); PROTEIN,URINE 30 mg/dL (NEGATIVE); URINE SPECIFIC GRAVITY 1.019; UROBILINOGEN,URINE NEGATIVE mg/dL (<2.0)
[2020-06-08] MEDS ORDERED: HYDRALAZINE HCL INJ/PF 20 MG/1 ML SDV IV ONE (19:30)
[2020-06-08 19:32] LABS: URINE AMPHETAMINES SCREEN NEGATIVE; URINE BARBITURATES SCREEN NEGATIVE; URINE BENZODIAZEPINES SCREEN NEGATIVE; URINE COCAINE SCREEN NEGATIVE; URINE MARIJUANA (THC) SCREEN NEGATIVE; URINE METHADONE SCREEN NEGATIVE; URINE PHENCYCLIDINE SCREEN NEGATIVE
[2020-06-08 19:45] LABS: ALBUMIN 3.4 g/dL (3.5-5.0); ALKALINE PHOSPHATASE 159 U/L (38-126); ANION GAP 8 (5-19); ASPARTATE AMINO TRANSFERASE 23 U/L (14-36); BILIRUBIN,DIRECT 0.2 mg/dL (0.0-0.4); BILIRUBIN,TOTAL 0.4 mg/dL (0.2-1.3); BLOOD UREA NITROGEN 5 mg/dL (7-20); CALCIUM 8.7 mg/dL (8.4-10.2); CARBON DIOXIDE 26 mmol/L (22-30); CHLORIDE 102 mmol/L (98-107); GLUCOSE 82 mg/dL (75-110); POTASSIUM 3.8 mmol/L (3.6-5.0); TOTAL PROTEIN 6.3 g/dL (6.3-8.2); URIC ACID 2.8 mg/dL (2.5-6.2)
[2020-06-08 19:47] LABS: UR PRO/CREAT RATIO RESULT 0.2 mg/mg (0.0-0.2); URINE CREATININE 123.8 mg/dL (16-327); URINE PROTEIN 24.5 mg/dL (<12)
== END 2020-06-08 20:21 | disposition left against medical advice (07) ==
LOC: EDRDC 18:20 → LC 20:21
PROVIDERS: ATTEND Student in an Organized Health Care Education/Training Program
DX: O10.913 Unspecified pre-existing hypertension complicating pregnancy, third trimester (principal); R51.9 Headache, unspecified; Z3A.31 31 weeks gestation of pregnancy; Z88.0 Allergy status to penicillin; Z88.6 Allergy status to analgesic agent; Z88.8 Allergy status to other drugs, medicaments and biological substances; Z91.040 Latex allergy status; Z91.013 Allergy to seafood; Z91.048 Other nonmedicinal substance allergy status; Z02.83 Encounter for blood-alcohol and blood-drug test
CPT/HCPCS: 59899; 94760; 36415; 83615; 84156; 84550; 82570; 85027; 80053; 81001; 80307; J3490 ×2; J0360

== ENCOUNTER 2020-06-16 17:00 | Outpatient (CLI) | payer MEDICAID ==
[2020-06-16] MEDS ORDERED: HYDRALAZINE HCL INJ/PF 20 MG/1 ML SDV ONE (17:48)
[2020-06-16 17:54] LABS: ABSOLUTE EOSINOPHILS # (AUTO) 0.3 10^3/uL (0.0-0.6); ABSOLUTE LYMPHOCYTES (AUTO) 2.4 10^3/uL (0.5-4.7); ABSOLUTE MONOCYTES (AUTO) 1.4 10^3/uL (0.1-1.4); ABSOLUTE NEUT (AUTO) 12.3 10^3/uL (1.7-8.2); BASOPHILS % (AUTO) 0.3 % (0-2); EOSINOPHILS % (AUTO) 1.9 % (0-6); HEMATOCRIT 33.4 % (36.0-47.0); HEMOGLOBIN 11.7 g/dL (12.0-15.5); LYMPHOCYTES % (AUTO) 14.7 % (13-45); MEAN CORPUSCULAR HGB CONC 35.1 g/dL (32.0-36.0); MEAN CORPUSCULAR VOLUME 86 fl (80-97); MONOCYTES % (AUTO) 8.6 % (3-13); PLATELET COUNT 388 10^3/uL (150-450); RED CELL DISTRIBUTION WIDTH 12.3 % (11.5-14.0); SEGMENTED NEUTROPHILS % (AUTO) 74.5 % (42-78); TOTAL CELLS COUNTED % (AUTO) 100 %; WHITE BLOOD COUNT 16.5 10^3/uL (4.0-10.5)
[2020-06-16 18:04] LABS: APPEARANCE,URINE CLEAR; BILIRUBIN,URINE NEGATIVE (NEGATIVE); COLOR,URINE STRAW; GLUCOSE, URINE NEGATIVE (NEGATIVE); KETONES,URINE NEGATIVE (NEGATIVE); LEUKOCYTE ESTERASE,URINE NEGATIVE (NEGATIVE); NITRITE,URINE NEGATIVE (NEGATIVE); PROTEIN,URINE NEGATIVE (NEGATIVE); URINE SPECIFIC GRAVITY 1.003; UROBILINOGEN,URINE NEGATIVE mg/dL (<2.0)
[2020-06-16 18:09] LABS: ALBUMIN 3.6 g/dL (3.5-5.0); ALKALINE PHOSPHATASE 179 U/L (38-126); ANION GAP 11 (5-19); ASPARTATE AMINO TRANSFERASE 21 U/L (14-36); BILIRUBIN,DIRECT 0.2 mg/dL (0.0-0.4); BILIRUBIN,TOTAL 0.4 mg/dL (0.2-1.3); BLOOD UREA NITROGEN 4 mg/dL (7-20); CALCIUM 9.2 mg/dL (8.4-10.2); CARBON DIOXIDE 22 mmol/L (22-30); CHLORIDE 102 mmol/L (98-107); GLUCOSE 99 mg/dL (75-110); POTASSIUM 3.8 mmol/L (3.6-5.0); TOTAL PROTEIN 6.5 g/dL (6.3-8.2); URIC ACID 2.9 mg/dL (2.5-6.2)
[2020-06-16] MEDS ORDERED: LABETALOL HCL 200 MG TABLET ONE (18:18)
[2020-06-16] MEDS ORDERED: BETAMET ACET/BETAMET NA INJ 6 MG/1 ML ONE (18:18)
[2020-06-16 18:22] LABS: URINE AMPHETAMINES SCREEN NEGATIVE; URINE BARBITURATES SCREEN NEGATIVE; URINE BENZODIAZEPINES SCREEN NEGATIVE; URINE COCAINE SCREEN NEGATIVE; URINE MARIJUANA (THC) SCREEN NEGATIVE; URINE METHADONE SCREEN NEGATIVE; URINE PHENCYCLIDINE SCREEN NEGATIVE
[2020-06-16 18:26] LABS: UR PRO/CREAT RATIO RESULT 0.9 mg/mg (0.0-0.2); URINE CREATININE 18.9 mg/dL (16-327); URINE PROTEIN 16.7 mg/dL (<12)
[2020-06-16] MEDS ORDERED: LABETALOL HCL 200 MG TABLET PO ONE (19:30)
[2020-06-16] MEDS ORDERED: HYDRALAZINE HCL INJ/PF 20 MG/1 ML SDV IV ONE (19:30)
[2020-06-16] MEDS ORDERED: BETAMET ACET/BETAMET NA INJ 6 MG/1 ML IM ONE (19:30)
== END 2020-06-16 20:00 | disposition left against medical advice (07) ==
LOC: LC 17:00
PROVIDERS: ATTEND Obstetrics & Gynecology
DX: O16.3 Unspecified maternal hypertension, third trimester (principal); O99.343 Other mental disorders complicating pregnancy, third trimester; F31.9 Bipolar disorder, unspecified; Z3A.32 32 weeks gestation of pregnancy; Z91.040 Latex allergy status; Z88.0 Allergy status to penicillin; Z91.013 Allergy to seafood
CPT/HCPCS: 59025; 36415; 83615; 84156; 84550; 82570; 85025; 80053; 81001; 80307; J0360; J3490; J0702

== ENCOUNTER 2020-06-17 18:34 | Outpatient (CLI) | payer MEDICAID ==
[2020-06-17] MEDS ORDERED: BETAMET ACET/BETAMET NA INJ 6 MG/1 ML ONE (18:37)
[2020-06-17 19:22] LABS: 24 HOUR URINE PROTEIN RESULT 269 mg/day (42-225); URINE PROTEIN 14.8 mg/dL (<12)
[2020-06-17] MEDS ORDERED: BETAMET ACET/BETAMET NA INJ 6 MG/1 ML IM ONE (19:40)
--- NOTE | 2020-06-17 20:10 | Non Stress Test Report ---
Non Stress Test Datetime Report Generated by CPN: 06/17/2020 20:09 DEMOGRAPHIC EGA NST: 32.6 INDICATION Indication for Study (NST) Other: pih work up MONITORING Monitor Explained: Monitor Explained; Test Explained; Patient Verbalized Understanding Time on Monitor: 06/17/2020 18:43 Time off Monitor: 06/17/2020 19:09 NST Duration: 26 NST INTERVENTIONS NST Interventions: Reposition Patient Physician Notified NST: Dr Garcia BABY A: [id number] BABY A Movement : Present Contraction Frequency : 0 FHR Baseline : 135 Accelerations : 15X15 Decelerations : None Variability : Moderate 6-25bpm NST Review: Meets Criteria for Reactive NST NST Review and Verified By : Sarah Orantes RN NST Results: Reactive NST REPORT Report Trigger: Send Report
== END 2020-06-17 19:59 | disposition home or self-care (01) ==
LOC: LC 18:34
PROVIDERS: ATTEND Obstetrics & Gynecology
DX: O16.3 Unspecified maternal hypertension, third trimester (principal); O26.893 Other specified pregnancy related conditions, third trimester; R10.11 Right upper quadrant pain; R51.9 Headache, unspecified; Z3A.32 32 weeks gestation of pregnancy; Z88.0 Allergy status to penicillin; Z88.6 Allergy status to analgesic agent; Z88.8 Allergy status to other drugs, medicaments and biological substances; Z91.040 Latex allergy status; Z91.013 Allergy to seafood
CPT/HCPCS: 59025; 94760; 96372; 84156; J0702

== ENCOUNTER 2020-06-21 16:15 | Outpatient (CLI) | payer MEDICAID ==
[2020-06-21 17:08] LABS: APPEARANCE,URINE SLIGHTLY-CLOUDY; BILIRUBIN,URINE NEGATIVE (NEGATIVE); COLOR,URINE YELLOW; GLUCOSE, URINE NEGATIVE (NEGATIVE); KETONES,URINE NEGATIVE (NEGATIVE); LEUKOCYTE ESTERASE,URINE SMALL (NEGATIVE); NITRITE,URINE NEGATIVE (NEGATIVE); PROTEIN,URINE NEGATIVE (NEGATIVE); URINE SPECIFIC GRAVITY 1.011; UROBILINOGEN,URINE NEGATIVE mg/dL (<2.0)
[2020-06-21 17:22] LABS: URINE AMPHETAMINES SCREEN NEGATIVE; URINE BARBITURATES SCREEN NEGATIVE; URINE BENZODIAZEPINES SCREEN NEGATIVE; URINE COCAINE SCREEN NEGATIVE; URINE MARIJUANA (THC) SCREEN NEGATIVE; URINE METHADONE SCREEN NEGATIVE; URINE PHENCYCLIDINE SCREEN NEGATIVE
[2020-06-21] MEDS ORDERED: LABETALOL HCL 200 MG TABLET ONE (17:34)
[2020-06-21] MEDS ORDERED: LABETALOL HCL 200 MG TABLET PO ONE (17:34)
--- NOTE | 2020-06-21 18:05 | Non Stress Test Report ---
Non Stress Test Datetime Report Generated by CPN: 06/21/2020 18:04 DEMOGRAPHIC Test Number: 1 EGA NST: 33.3 VITAL SIGNS Temperature - NST: 98.6 Pulse - NST: 94 RESP - NST: 18 NBPSYS NST: 119 NBPDIA NST: 67 MONITORING Monitor Explained: Monitor Explained; Test Explained; Patient Verbalized Understanding Time on Monitor: 06/21/2020 16:35 Time off Monitor: 06/21/2020 17:55 NST Duration: 80 NST INTERVENTIONS NST Interventions: PO Hydration; Reposition Patient Physician Notified NST: D. Dick MD BABY A: [id number] BABY A Movement : Present Contraction Frequency : OCC FHR Baseline : 145 Accelerations : 15X15 Decelerations : None Variability : Moderate 6-25bpm NST Review: Meets Criteria for Reactive NST NST Review and Verified By : ALAN Dawkins NST Results: Reactive NST REPORT Report Trigger: Send Report
== END 2020-06-21 17:59 | disposition home or self-care (01) ==
LOC: LC 16:15
PROVIDERS: ATTEND Obstetrics & Gynecology
DX: O13.3 Gestational [pregnancy-induced] hypertension without significant proteinuria, third trimester (principal); Z3A.33 33 weeks gestation of pregnancy
CPT/HCPCS: 81001; 80307; J3490

== ENCOUNTER 2020-06-28 16:41 | Emergency (ER) | payer MEDICAID ==
[2020-06-28 17:02] VITALS: BP 161/91
--- NOTE | 2020-06-28 17:55 | ER Document Report ---
ED Extremity Problem, Lower - General Chief Complaint: Ankle Pain Stated Complaint: ANKLE PAIN Time Seen by Provider: 06/28/20 17:49 Primary Care Provider: YOHAN LOGAN MD [Primary Care Provider] - Follow up as needed Mode of Arrival: Ambulatory Information source: Patient Notes: 30-year-old female presents to ED for complaint of pain to the right ankle. She states she was out [place] shopping about an hour ago when she tripped and fell injuring the right ankle. She did walk into the triage room with a limp. States she is on medications for high blood pressure during her . We will get x-rays of the right ankle. She states she did not hit her abdomen she is not having any abdominal pain she is just having pain in the right ankle. We will treat with 650 of Tylenol she states she has not had any today. She states she has pain level 2/5 and she surgery on this ankle about 2 years ago and has to have another one after the baby is born. We will send her for x-ray give her the Tylenol and get her heart tone and then determine further treatment after the x-ray. Heart tone is 160 on the lower right abdomen. REVIEW OF SYSTEMS: CONSTITUTIONAL : Denies fever, chills, or sweats. Denies recent illness. CARDIOVASCULAR: Denies chest pain. RESPIRATORY: Denies cough, cold, or chest congestion. Denies shortness of breath, difficulty breathing, or wheezing. GASTROINTESTINAL: Denies abdominal pain. Denies nausea, vomiting, or diarrhea. Denies constipation. Last BM: GENITOURINARY: Denies difficulty urinating, painful urination, burning, frequency, or blood in urine. FEMALE GENITOURINARY: Patient is 34 and 4 days MUSCULOSKELETAL: Right foot and ankle tenderness SKIN: Denies rash or skin lesions. HEMATOLOGIC : Denies easy bruising or bleeding. LYMPHATIC: Denies swollen, enlarged glands. NEUROLOGICAL: Denies altered mental status or loss of consciousness. Denies headache. Denies weakness or paralysis or loss of use of either side. Denies problems with gait or speech. Denies sensory or motor loss. PSYCHIATRIC: Denies anxiety or stress or depression. ALL OTHER SYSTEMS REVIEWED AND NEGATIVE. VITAL SIGNS: Within normal limits. GENERAL: No acute distress, non-toxic appearance. HEAD: Normal with no signs of head trauma. EYES: PERRLA, EOMI, conjunctiva normal, no discharge. EARS: Hearing grossly intact. NOSE: Normal. THROAT: Oropharynx is normal. NECK: Normal range of motion, no tenderness, supple, no lymphadenopathy, No adenopathy, no JVD. CHEST: Clear breath sounds bilaterally. No wheezes, rales, or rhonchi. CARDIAC: Regular rate and rhythm. S1 and S2, without murmurs, gallops, or rubs. VASCULAR: No Edema. Peripheral pulses normal and equal in all extremities. ABDOMEN: For 4 days GASTROINTESTINAL: Bowel sounds normal GENITOURINARY: Normal, No tenderness LYMPATHTIC: No lymphadenopathy noted. MUSCULOSKELETAL: Pain swelling bruising to the lateral aspect of the right ankle NEUROLOGICAL: Alert and oriented x 3. No focal sensory or strength deficits. Speech normal. Follows commands appropriately. PSYCHIATRIC: Normal Affect, judgement and mood. SKIN: Normal appearance with no rashes or lesions. TRAVEL OUTSIDE OF THE [place] IN LAST 30 DAYS: No - HPI Patient complains to provider of: Injury, Pain, Swelling Location: Ankle - Right Occurred: Just prior to arrival Where: Indoors, Public place Onset/Duration: Sudden, Persistent Quality of pain: Throbbing Severity: Moderate Pain Level: 2 Context: Twisted Recent injury: Yes Associated symptoms: Painful ambulation Exacerbated by: Movement, Walking Relieved by: Elevation, Ice, Rest - Related Data Allergies/Adverse Reactions: morphine [Morphine] Allergy (Severe, Verified 06/21/20 16:34) Difficulty breathing/itch shellfish derived Allergy (Severe, Verified 06/21/20 16:34) Anaphylaxis iodine [Iodine] Allergy (Intermediate, Verified 06/21/20 16:34) RASH latex [Latex] Allergy (Intermediate, Verified 06/21/20 16:34) RASH diphenhydramine [From Benadryl] Allergy (Verified 06/21/20 16:34) Penicillins Allergy (Verified 06/21/20 16:34) verapamil Allergy (Verified 06/21/20 16:34) Tachycardia Past Medical History - General Information source: Patient - Social History Smoking Status: Never Smoker Frequency of alcohol use: None Drug Abuse: None Lives with: Family Family History: CAD, COPD, CVA, DM, Hyperlipidemia, Hypertension Patient has suicidal ideation: No Patient has homicidal ideation: No - Past Medical History Cardiac Medical History: Reports: Hx Hypertension Pulmonary Medical History: Reports: Hx Asthma - resolved EENT Medical History: Reports: None Neurological Medical History: Reports: Hx Migraine Endocrine Medical History: Reports: None Renal/ Medical History: Reports: Hx Kidney Stones, Hx Pelvic Inflammatory Disease Malignancy Medical History: Reports: None GI Medical History: Reports: None Musculoskeletal Medical History: Reports Hx Musculoskeletal Trauma Skin Medical History: Reports None Psychiatric Medical History: Reports: Hx Bipolar Disorder, Hx Depression, Hx Post Traumatic Stress Disorder Traumatic Medical History: Reports: Hx Fractures - Fractured ankle Infectious Medical History: Reports: None Past Surgical History: Reports: Hx Cholecystectomy, Hx Oral Surgery - wisdom tooth removal 07/2016, Hx Orthopedic Surgery - right ankle - Immunizations Immunizations up to date: Yes Hx Diphtheria, Pertussis, Tetanus Vaccination: Yes Physical Exam - Vital signs Vitals: Temp Pulse Resp BP Pulse Ox 99.1 F 107 H 20 161/91 H 100 06/28/20 17:01 06/28/20 17:01 06/28/20 17:01 06/28/20 17:01 06/28/20 17:01 Course - Re-evaluation Re-evalutation: 06/28/20 19:38 Week with patient via telephone. She states she left and that she told the patient access that she was leaving because she was getting more dizzy. She states she has problems with blood pressure in so she went to [facility] to see the tube winder hand. - Vital Signs Vital signs: Temp Pulse Resp BP Pulse Ox 99.1 F 107 H 20 161/91 H 100 06/28/20 17:01 06/28/20 17:01 06/28/20 17:01 06/28/20 17:01 06/28/20 17:01 Discharge - Discharge Clinical Impression: Right ankle pain Qualifiers: Chronicity: acute Qualified Code(s): M25.571 - Pain in right ankle and joints of right foot Disposition: ELOPED Referrals: YOHAN LOGAN MD [Primary Care Provider] - Follow up as needed
[2020-06-28] MEDS ORDERED: ACETAMINOPHEN 325 MG TABLET PO ONE (17:56)
--- NOTE | 2020-06-28 18:22 | RADIOLOGY REPORT (SQ) ---
EXAM DESCRIPTION: ANKLE RIGHT COMPLETE IMAGES COMPLETED DATE/TIME: 06/28/2020 6:07 pm REASON FOR STUDY: No pain injury swelling to the lateral aspect of t COMPARISON: None. NUMBER OF VIEWS: Three views. TECHNIQUE: AP, lateral, and oblique radiographic images acquired of the right ankle. LIMITATIONS: None. FINDINGS: MINERALIZATION: Normal. BONES: No acute fracture or dislocation. No worrisome bone lesions. JOINTS: No effusions. SOFT TISSUES: No soft tissue swelling. No foreign body. OTHER: No other significant finding. IMPRESSION: NEGATIVE STUDY OF THE RIGHT ANKLE. NO RADIOGRAPHIC EVIDENCE OF ACUTE INJURY. TECHNICAL DOCUMENTATION: JOB ID: [id number] 2010 [employer]- All Rights Reserved Reading location - IP/workstation name: [email or web address]
== END 2020-06-28 18:53 | disposition left against medical advice (07) ==
LOC: ER 16:41
DX: M25.571 Pain in right ankle and joints of right foot (principal); W01.0XXA Fall on same level from slipping, tripping and stumbling without subsequent striking against object, initial encounter; Y92.513 Shop (commercial) as the place of occurrence of the external cause; I10 Essential (primary) hypertension; Z90.49 Acquired absence of other specified parts of digestive tract; Z88.6 Allergy status to analgesic agent; Z91.040 Latex allergy status; Z88.0 Allergy status to penicillin; Z87.442 Personal history of urinary calculi
CPT/HCPCS: 99281

== ENCOUNTER 2020-07-08 17:22 | Outpatient (CLI) | payer MEDICAID ==
[2020-07-08 18:34] LABS: APPEARANCE,URINE CLEAR; BILIRUBIN,URINE NEGATIVE (NEGATIVE); COLOR,URINE YELLOW; GLUCOSE, URINE NEGATIVE (NEGATIVE); KETONES,URINE NEGATIVE (NEGATIVE); LEUKOCYTE ESTERASE,URINE SMALL (NEGATIVE); NITRITE,URINE NEGATIVE (NEGATIVE); PROTEIN,URINE NEGATIVE (NEGATIVE); URINE SPECIFIC GRAVITY 1.005; UROBILINOGEN,URINE NEGATIVE mg/dL (<2.0)
--- NOTE | 2020-07-08 18:41 | Non Stress Test Report ---
Non Stress Test Datetime Report Generated by CPN: 07/08/2020 18:41 DEMOGRAPHIC EGA NST: 35.6 MONITORING Monitor Explained: Monitor Explained; Test Explained; Patient Verbalized Understanding Time on Monitor: 07/08/2020 18:00 Time off Monitor: 07/08/2020 18:32 NST Duration: 32 NST INTERVENTIONS NST Interventions: None Physician Notified NST: Dr Winston BABY A: [id number] BABY A Movement : Present Contraction Frequency : x1 FHR Baseline : 125 Accelerations : 15X15 Decelerations : None Variability : Moderate 6-25bpm NST Review: Meets Criteria for Reactive NST NST Review and Verified By : Sarah Bunn RN NST Results: Reactive NST REPORT Report Trigger: Send Report
[2020-07-08 18:55] LABS: URINE AMPHETAMINES SCREEN NEGATIVE; URINE BARBITURATES SCREEN NEGATIVE; URINE BENZODIAZEPINES SCREEN NEGATIVE; URINE COCAINE SCREEN NEGATIVE; URINE MARIJUANA (THC) SCREEN NEGATIVE; URINE METHADONE SCREEN NEGATIVE; URINE PHENCYCLIDINE SCREEN NEGATIVE
== END 2020-07-08 18:36 | disposition home or self-care (01) ==
LOC: LC 17:22
PROVIDERS: ATTEND Obstetrics & Gynecology Gynecology
DX: O16.3 Unspecified maternal hypertension, third trimester (principal); O99.891 Other specified diseases and conditions complicating pregnancy; M79.605 Pain in left leg; M79.604 Pain in right leg; R51.9 Headache, unspecified; Z3A.35 35 weeks gestation of pregnancy; Z88.0 Allergy status to penicillin; Z88.6 Allergy status to analgesic agent; Z88.8 Allergy status to other drugs, medicaments and biological substances; Z91.040 Latex allergy status; Z91.013 Allergy to seafood; Z91.048 Other nonmedicinal substance allergy status; Z87.891 Personal history of nicotine dependence
CPT/HCPCS: 59025; 80307; 81001

== ENCOUNTER 2020-07-13 17:26 | Outpatient (CLI) | payer MEDICAID ==
[2020-07-13 18:39] LABS: APPEARANCE,URINE SLIGHTLY-CLOUDY; BILIRUBIN,URINE NEGATIVE (NEGATIVE); COLOR,URINE YELLOW; GLUCOSE, URINE NEGATIVE (NEGATIVE); KETONES,URINE NEGATIVE (NEGATIVE); LEUKOCYTE ESTERASE,URINE MODERATE (NEGATIVE); NITRITE,URINE NEGATIVE (NEGATIVE); PROTEIN,URINE 30 mg/dL (NEGATIVE); URINE SPECIFIC GRAVITY 1.018; UROBILINOGEN,URINE NEGATIVE mg/dL (<2.0)
[2020-07-13 18:58] LABS: UR PRO/CREAT RATIO RESULT 0.2 mg/mg (0.0-0.2); URINE CREATININE 160.8 mg/dL (16-327); URINE PROTEIN 39.8 mg/dL (<12)
[2020-07-13 19:16] LABS: URINE AMPHETAMINES SCREEN NEGATIVE; URINE BARBITURATES SCREEN NEGATIVE; URINE BENZODIAZEPINES SCREEN NEGATIVE; URINE COCAINE SCREEN NEGATIVE; URINE MARIJUANA (THC) SCREEN NEGATIVE; URINE METHADONE SCREEN NEGATIVE; URINE PHENCYCLIDINE SCREEN NEGATIVE
[2020-07-13 19:30] LABS: ABSOLUTE EOSINOPHILS # (AUTO) 0.2 10^3/uL (0.0-0.6); ABSOLUTE LYMPHOCYTES (AUTO) 2.1 10^3/uL (0.5-4.7); ABSOLUTE NEUT (AUTO) 8.7 10^3/uL (1.7-8.2); BASOPHILS % (AUTO) 0.1 % (0-2); EOSINOPHILS % (AUTO) 1.7 % (0-6); HEMATOCRIT 31.8 % (36.0-47.0); HEMOGLOBIN 10.9 g/dL (12.0-15.5); LYMPHOCYTES % (AUTO) 17.3 % (13-45); MEAN CORPUSCULAR HEMOGLOBIN 29.2 pg (27.0-33.4); MEAN CORPUSCULAR HGB CONC 34.3 g/dL (32.0-36.0); MEAN CORPUSCULAR VOLUME 85 fl (80-97); MONOCYTES % (AUTO) 8.3 % (3-13); PLATELET COUNT 323 10^3/uL (150-450); RED BLOOD COUNT 3.74 10^6/uL (3.72-5.28); SEGMENTED NEUTROPHILS % (AUTO) 72.6 % (42-78); TOTAL CELLS COUNTED % (AUTO) 100 %; WHITE BLOOD COUNT 11.9 10^3/uL (4.0-10.5)
[2020-07-13 19:33] LABS: ALBUMIN 3.3 g/dL (3.5-5.0); ALKALINE PHOSPHATASE 246 U/L (38-126); ANION GAP 9 (5-19); ASPARTATE AMINO TRANSFERASE 38 U/L (14-36); BILIRUBIN,DIRECT 0.1 mg/dL (0.0-0.4); BILIRUBIN,TOTAL 0.4 mg/dL (0.2-1.3); BLOOD UREA NITROGEN 6 mg/dL (7-20); CALCIUM 8.7 mg/dL (8.4-10.2); CARBON DIOXIDE 22 mmol/L (22-30); CHLORIDE 105 mmol/L (98-107); GLUCOSE 80 mg/dL (75-110); POTASSIUM 3.7 mmol/L (3.6-5.0); TOTAL PROTEIN 6.1 g/dL (6.3-8.2); URIC ACID 3.2 mg/dL (2.5-6.2)
[2020-07-13 20:00] LABS: CHLAM PCR NOT DETECTED (NOT DETECT)
== END 2020-07-13 19:13 | disposition home or self-care (01) ==
LOC: LC 17:26
PROVIDERS: ATTEND Student in an Organized Health Care Education/Training Program
DX: O13.3 Gestational [pregnancy-induced] hypertension without significant proteinuria, third trimester (principal); O47.03 False labor before 37 completed weeks of gestation, third trimester; Z3A.36 36 weeks gestation of pregnancy; Z88.0 Allergy status to penicillin; Z88.6 Allergy status to analgesic agent; Z91.040 Latex allergy status; Z91.013 Allergy to seafood; Z88.8 Allergy status to other drugs, medicaments and biological substances; Z91.048 Other nonmedicinal substance allergy status
CPT/HCPCS: 36415; 59025; 80053; 80307; 81001; 82570; 83615; 84156; 84550; 85025; 87081; 87491; 87591

== ENCOUNTER 2020-07-25 17:03 | Emergency (ER) | payer MEDICAID ==
--- NOTE | 2020-07-25 17:34 | ER Document Report ---
ED Medical Screen (RME) - General Chief Complaint: Post Surgical Pain Stated Complaint: POST SURGICAL PAIN Time Seen by Provider: 07/25/20 17:27 Mode of Arrival: Ambulatory Information source: Patient Notes: 30-year-old female presented to ED for complaint of postsurgical pain bleeding nausea and elevated blood pressure. She had her child on 12 5 which was 3 weeks early due to preeclampsia. Her blood pressure at this time is 176/97 pulse is 68 temp is 98.2 sat is 99% and respirations are 16 according to the PCT. She does have a lot of bruising below her umbilicus where she states she had a bilateral tubal ligation after delivery she also is having back pain nausea and vomiting. She states the most pain is in her abdomen where it is very bruised and swollen. Patient is alert oriented respirations regular nonlabored speaking in full sentences. I have spoken to the charge nurse and she will try to get her room diuresis blood pressure post delivery. I have greeted and performed a rapid initial assessment of this patient. A comprehensive ED assessment and evaluation of the patient, analysis of test results and completion of medical decision making process will be conducted by an additional ED providers. TRAVEL OUTSIDE OF THE [place] IN LAST 30 DAYS: No - Related Data Allergies/Adverse Reactions: morphine [Morphine] Allergy (Severe, Verified 06/21/20 16:34) Difficulty breathing/itch shellfish derived Allergy (Severe, Verified 06/21/20 16:34) Anaphylaxis iodine [Iodine] Allergy (Intermediate, Verified 06/21/20 16:34) RASH latex [Latex] Allergy (Intermediate, Verified 06/21/20 16:34) RASH diphenhydramine [From Benadryl] Allergy (Verified 06/21/20 16:34) Penicillins Allergy (Verified 06/21/20 16:34) verapamil Allergy (Verified 06/21/20 16:34) Tachycardia Past Medical History - Social History Family history: Reviewed & Not Pertinent, Hypertension, Other - copd - Past Medical History Cardiac Medical History: Reports: Hx Hypertension Denies: Hx Heart Attack Pulmonary Medical History: Reports: Hx Asthma - resolved Denies: Hx Bronchitis, Hx COPD, Hx Pneumonia Neurological Medical History: Reports: Hx Migraine. Denies: Hx Seizures Renal/ Medical History: Reports: Hx Kidney Stones, Hx Pelvic Inflammatory Disease. Denies: Hx Peritoneal Dialysis Musculoskeltal Medical History: Denies Hx Arthritis, Reports Hx Musculoskeletal Trauma Psychiatric Medical History: Reports: Hx Bipolar Disorder, Hx Depression, Hx Post Traumatic Stress Disorder Traumatic Medical History: Reports: Hx Fractures - Fractured ankle Past Surgical History: Reports: Hx Cholecystectomy, Hx Oral Surgery - wisdom tooth removal 07/2016, Hx Orthopedic Surgery - right ankle - Immunizations Immunizations up to date: Yes Hx Diphtheria, Pertussis, Tetanus Vaccination: Yes
[2020-07-25 18:20] LABS: ABSOLUTE EOSINOPHILS # (AUTO) 0.4 10^3/uL (0.0-0.6); ABSOLUTE LYMPHOCYTES (AUTO) 2.6 10^3/uL (0.5-4.7); ABSOLUTE MONOCYTES (AUTO) 1.1 10^3/uL (0.1-1.4); ABSOLUTE NEUT (AUTO) 9.4 10^3/uL (1.7-8.2); BASOPHILS % (AUTO) 0.2 % (0-2); HEMATOCRIT 29.8 % (36.0-47.0); HEMOGLOBIN 10.3 g/dL (12.0-15.5); LYMPHOCYTES % (AUTO) 19.2 % (13-45); MEAN CORPUSCULAR HEMOGLOBIN 29.4 pg (27.0-33.4); MEAN CORPUSCULAR HGB CONC 34.5 g/dL (32.0-36.0); MEAN CORPUSCULAR VOLUME 85 fl (80-97); MONOCYTES % (AUTO) 8.2 % (3-13); PLATELET COUNT 390 10^3/uL (150-450); RED BLOOD COUNT 3.51 10^6/uL (3.72-5.28); RED CELL DISTRIBUTION WIDTH 13.2 % (11.5-14.0); SEGMENTED NEUTROPHILS % (AUTO) 69.4 % (42-78); TOTAL CELLS COUNTED % (AUTO) 100 %; WHITE BLOOD COUNT 13.5 10^3/uL (4.0-10.5)
[2020-07-25 18:29] LABS: ALBUMIN 3.5 g/dL (3.5-5.0); ALKALINE PHOSPHATASE 193 U/L (38-126); ANION GAP 5 (5-19); ASPARTATE AMINO TRANSFERASE 54 U/L (14-36); BILIRUBIN,DIRECT 0.2 mg/dL (0.0-0.4); BILIRUBIN,TOTAL 0.4 mg/dL (0.2-1.3); BLOOD UREA NITROGEN 9 mg/dL (7-20); CALCIUM 8.9 mg/dL (8.4-10.2); CARBON DIOXIDE 30 mmol/L (22-30); CHLORIDE 101 mmol/L (98-107); GLUCOSE 84 mg/dL (75-110); TOTAL PROTEIN 6.5 g/dL (6.3-8.2)
[2020-07-25 18:42] LABS: APPEARANCE,URINE CLEAR; BILIRUBIN,URINE NEGATIVE (NEGATIVE); COLOR,URINE STRAW; GLUCOSE, URINE NEGATIVE (NEGATIVE); KETONES,URINE NEGATIVE (NEGATIVE); LEUKOCYTE ESTERASE,URINE SMALL (NEGATIVE); NITRITE,URINE NEGATIVE (NEGATIVE); PROTEIN,URINE 30 mg/dL (NEGATIVE); URINE SPECIFIC GRAVITY 1.009; UROBILINOGEN,URINE NEGATIVE mg/dL (<2.0)
[2020-07-25] MEDS ORDERED: ACETAMINOPHEN 325 MG TABLET PO ONE (18:51)
[2020-07-25] MEDS ORDERED: KETOROLAC TROMETHAMINE INJ/PF 30 MG/1 ML SDV IV ONE (19:19)
[2020-07-25] MEDS ORDERED: LABETALOL HCL INJ 20 MG/4 ML DISP.SYRIN IV ONE (19:25)
--- NOTE | 2020-07-25 20:18 | ER Document Report ---
ED General - General Chief Complaint: Post Surgical Pain Stated Complaint: POST SURGICAL PAIN Time Seen by Provider: 07/25/20 17:27 Mode of Arrival: Ambulatory TRAVEL OUTSIDE OF THE [place] IN LAST 30 DAYS: No - HPI Notes: Chief complaint: Blunt abdominal injury History of present illness: 30-year-old female 4 para 4 who is 4 days and status post tubal ligation at [facility] now presenting for evaluation of injury to abdominal wall. Patient states that she has a history of preeclampsia and has had blood pressure problems with each of her pregnancies. They sent her home on labetalol. She says she is taking this as prescribed. She states that her toddler kicked her in the abdominal wall 2 days ago. She is concerned because of swelling and discomfort in this area and also a very prominent hematoma. We note that the patient has a laparoscopy incision which is healing in the periumbilical area. She denies fever. She denies nausea vomiting. Currently breast-feeding. Patient says she has not spoken with her [facility] will phone because she was "too busy" . - Related Data Allergies/Adverse Reactions: morphine [Morphine] Allergy (Severe, Verified 06/21/20 16:34) Difficulty breathing/itch shellfish derived Allergy (Severe, Verified 06/21/20 16:34) Anaphylaxis iodine [Iodine] Allergy (Intermediate, Verified 06/21/20 16:34) RASH latex [Latex] Allergy (Intermediate, Verified 06/21/20 16:34) RASH diphenhydramine [From Benadryl] Allergy (Verified 06/21/20 16:34) Penicillins Allergy (Verified 06/21/20 16:34) verapamil Allergy (Verified 06/21/20 16:34) Tachycardia Past Medical History - General Information source: Patient, [facility] Records - Social History Smoking Status: Unknown if Ever Smoked Family History: CAD, COPD, CVA, DM, Hyperlipidemia, Hypertension - Past Medical History Cardiac Medical History: Reports: Hx Hypertension Denies: Hx Heart Attack Pulmonary Medical History: Reports: Hx Asthma - resolved Denies: Hx Bronchitis, Hx COPD, Hx Pneumonia Neurological Medical History: Reports: Hx Migraine. Denies: Hx Seizures Renal/ Medical History: Reports: Hx Kidney Stones, Hx Pelvic Inflammatory Disease. Denies: Hx Peritoneal Dialysis Musculoskeletal Medical History: Denies Hx Arthritis, Reports Hx Musculoskeletal Trauma Psychiatric Medical History: Reports: Hx Bipolar Disorder, Hx Depression, Hx Post Traumatic Stress Disorder Traumatic Medical History: Reports: Hx Fractures - Fractured ankle Past Surgical History: Reports: Hx Cholecystectomy, Hx Oral Surgery - wisdom tooth removal 07/2016, Hx Orthopedic Surgery - right ankle - Immunizations Immunizations up to date: Yes Hx Diphtheria, Pertussis, Tetanus Vaccination: Yes Review of Systems - Review of Systems Notes: Constitutional: Negative for fever. HENT: Negative for sore throat. Eyes: Negative for visual changes. Cardiovascular: Negative for chest pain. Respiratory: Negative for shortness of breath. Gastrointestinal: As per HPI. Genitourinary: Normal lochia. Negative for dysuria. Musculoskeletal: Negative for back pain. Skin: Negative for rash. Neurological: Negative for headaches, weakness or numbness. 10 point ROS negative except as marked above and in HPI. Physical Exam - Vital signs Vitals: Temp Pulse Resp BP Pulse Ox 98.2 F 68 20 176/97 H 99 07/25/20 17:37 07/25/20 17:37 07/25/20 17:37 07/25/20 17:37 07/25/20 17:37 - Notes Notes: GENERAL: Female patient approximately stated age appearing uncomfortable but otherwise in no acute distress. SKIN: Large ecchymosis over lower mid abdominal wall good turgor no rashes. HEAD: Normocephalic atraumatic. EYES: PERRLA. EOMI. Conjunctivae and sclerae clear. EARS: CANALS AND TMS CLEAR. NOSE: CLEAR. MOUTH: Moist mucosa. Good dentition. No stridor or edema. No drooling. NECK: Supple. No masses or thyromegaly. No adenopathy. Carotids 2+ without bruits. No JVD. BACK: Symmetrical without tenderness. CHEST: Respirations unlabored. Breath sounds clear and symmetrical. HEART: Regular rhythm. No murmur gallop or rub. ABDOMEN: Large ecchymosis over the lower mid abdominal wall area which is moderately tender. Periumbilical laparoscopy incision shows normal early heali ng without drainage or redness. Minimal guarding without masses, organomegaly or rebound. Bowel sounds normally active. No bruits. GENITALIA: Deferred. EXTREMITIES: No edema. No calf tenderness. Cap refill less than 1.5 seconds. Dorsalis pedis and posterior tibial pulses 3+ and symmetrical. NEUROLOGICAL: GCS 15. Alert and oriented x3. Normal gait. Fluent speech. Cranial nerves II through XII intact. Sensorimotor and cerebellar normal. Normal tone. Deep tendon reflexes 2+ and symmetrical. PSYCHIATRIC: Appropriate affect. Course - Vital Signs Vital signs: Temp Pulse Resp BP Pulse Ox 98.2 F 68 22 H 136/99 H 97 07/25/20 17:37 07/25/20 17:37 07/25/20 20:30 07/25/20 20:30 07/25/20 20:30 - Laboratory Results Result Diagrams: 07/25/20 17:55 07/25/20 17:55 Laboratory Results Interpreted: 07/25/20 07/25/20 07/25/20 17:55 17:55 18:30 WBC 13.5 H RBC 3.51 L Hgb 10.3 L Hct 29.8 L Absolute Neuts (auto) 9.4 H Sodium 136.1 L AST 54 H ALT 49 H Alkaline Phosphatase 193 H Urine Protein 30 H Urine Blood LARGE H Ur Leukocyte Esterase SMALL H Critical Laboratory Results Reviewed: No Critical Results - Radiology Results Radiology Results Interpreted: 07/25/20 20:48 Abdomen/Pelvis CT 07/25/20 19:25 IMPRESSION: 1. Enlarged uterus, please correlate if the patient is recently to account for this. 2. Otherwise essentially unremarkable. Critical Radiology Results Reviewed: No Critical Results Discharge - Discharge Clinical Impression: Hematoma of abdominal wall Qualifiers: Encounter type: initial encounter Qualified Code(s): S30.1XXA - Contusion of abdominal wall, initial encounter Preeclampsia Qualifiers: Trimester: unspecified trimester Qualified Code(s): O14.90 - Unspecified pre- eclampsia, unspecified trimester Condition: Stable Disposition: HOME, SELF-CARE Additional Instructions: Apply ice packs to abdominal wall area of pain and swelling. Take Tylenol as needed for your discomfort. Increase your labetalol to 200 mg 3 times a day. Return to the emergency department here as needed for new or worsening symptoms. Contact [facility] at [facility] tomorrow morning for follow-up within the next 48 hours.
[2020-07-25 20:41] VITALS: BP 136/99
--- NOTE | 2020-07-25 20:41 | RADIOLOGY REPORT (SQ) ---
CT abdomen and pelvis with contrast on 07/25/2020 at 7:47 PM CLINICAL INDICATION: Blunt abdominal trauma, lower abdominal pain TECHNIQUE: Multiple axial images are obtained throughout the abdomen and pelvis following the administration of IV contrast, 89 mL of Omnipaque 350contrast was administered intravenously without complication. This exam was performed according to our departmental dose-optimization program, which includes automated exposure control, adjustment of the mA and/or kV according to patient size and/or use of iterative reconstruction technique. Total DLP is 1422.44 mGy*cm. COMPARISON: 05/03/2017 FINDINGS: Abdomen: The lung bases are clear. The patient is status post cholecystectomy. The solid abdominal organs are unremarkable. There is no abdominal adenopathy. There is no free fluid or free air within the abdomen. The abdominal portion of the GI tract is unremarkable. Pelvis: An enlarged uterus is noted, please correlate if the patient is recently . Pelvic organs otherwise appear unremarkable by CT. There is no free fluid in the pelvis. There is no pelvic adenopathy. Pelvic portion of the GI tract including the appendix is unremarkable. No acute bony abnormality is noted. IMPRESSION: 1. Enlarged uterus, please correlate if the patient is recently to account for this. 2. Otherwise essentially unremarkable.
== END 2020-07-25 21:09 | disposition home or self-care (01) ==
LOC: ER 17:03
DX: O9A.23 Injury, poisoning and certain other consequences of external causes complicating the puerperium (principal); S30.1XXA Contusion of abdominal wall, initial encounter; G89.18 Other acute postprocedural pain; Z98.51 Tubal ligation status; Z87.59 Personal history of other complications of pregnancy, childbirth and the puerperium; I10 Essential (primary) hypertension; W51.XXXA Accidental striking against or bumped into by another person, initial encounter; Z88.8 Allergy status to other drugs, medicaments and biological substances; Z88.0 Allergy status to penicillin; J45.909 Unspecified asthma, uncomplicated; Z79.899 Other long term (current) drug therapy
CPT/HCPCS: 99284; 96374; 36415; 83690; 83735; 85025; 80053; 81001; 74177; J3490 ×2

== ENCOUNTER 2020-07-28 11:45 | Emergency (ER) | payer MEDICAID ==
[2020-07-28 12:25] VITALS: BP 146/92
[2020-07-28] MEDS ORDERED: KETOROLAC TROMETHAMINE INJ/PF 30 MG/1 ML SDV IV ONE (13:14)
[2020-07-28] MEDS ORDERED: METOCLOPRAMIDE HCL INJ/PF 10 MG/2 ML SDV IV ONE (13:14)
[2020-07-28] MEDS ORDERED: NORMAL SALINE 1000 ML 1,000 ML IV ONE (13:15)
--- NOTE | 2020-07-28 13:17 | ER Document Report ---
ED Medical Screen (RME) - General Chief Complaint: Headache Stated Complaint: HEADACHE/POST EPIDURAL Time Seen by Provider: 07/28/20 13:10 TRAVEL OUTSIDE OF THE [place] IN LAST 30 DAYS: No - HPI Notes: 07/28/20 13:16 30-Old female with history of scoliosis presents to ED for evaluation headache after spinal tap. Patient reports that she recently had a baby a week ago and has had increased headaches similar to what she is experienced in the past. States the baby was delivered at [facility]. Patient notes that she has increased headache that would is improved when she lays down. Also notes increased nausea and vomiting. Patient denies blurred vision or double vision. Denies any other neurologic complaints. - Related Data Allergies/Adverse Reactions: morphine [Morphine] Allergy (Severe, Verified 06/21/20 16:34) Difficulty breathing/itch shellfish derived Allergy (Severe, Verified 06/21/20 16:34) Anaphylaxis iodine [Iodine] Allergy (Intermediate, Verified 06/21/20 16:34) RASH latex [Latex] Allergy (Intermediate, Verified 06/21/20 16:34) RASH diphenhydramine [From Benadryl] Allergy (Verified 06/21/20 16:34) Penicillins Allergy (Verified 06/21/20 16:34) verapamil Allergy (Verified 06/21/20 16:34) Tachycardia Past Medical History - Social History Chew tobacco use (# tins/day): No Frequency of alcohol use: None Drug Abuse: None Family history: Reviewed & Not Pertinent, Hypertension, Other - copd - Past Medical History Cardiac Medical History: Reports: Hx Hypertension Denies: Hx Heart Attack Pulmonary Medical History: Reports: Hx Asthma - resolved Denies: Hx Bronchitis, Hx COPD, Hx Pneumonia Neurological Medical History: Reports: Hx Migraine. Denies: Hx Seizures Renal/ Medical History: Reports: Hx Kidney Stones, Hx Pelvic Inflammatory Disease. Denies: Hx Peritoneal Dialysis Musculoskeltal Medical History: Denies Hx Arthritis, Reports Hx Musculoskeletal Trauma Psychiatric Medical History: Reports: Hx Bipolar Disorder, Hx Depression, Hx Post Traumatic Stress Disorder Traumatic Medical History: Reports: Hx Fractures - Fractured ankle Past Surgical History: Reports: Hx Cholecystectomy, Hx Oral Surgery - wisdom tooth removal 07/2016, Hx Orthopedic Surgery - right ankle - Immunizations Immunizations up to date: Yes Hx Diphtheria, Pertussis, Tetanus Vaccination: Yes Physical Exam - Vital signs Vitals: Temp Pulse Resp BP Pulse Ox 98.2 F 73 20 146/92 H 97 07/28/20 12:23 07/28/20 12:23 07/28/20 12:23 07/28/20 12:23 07/28/20 12:23 General: No acute distress. Alert and oriented x3. Sitting comfortably in a stretcher. Skin: No jaundice, pallor, petechiae, or rashes. Warm and dry. HEENT: Normocephalic, atraumatic. Pupils are equal round reactive to light and accommodation. Extraocular movements are intact. TMs without erythema or bulging. Canals are clear. Nares patent without any discharge. Teeth in good condition. Pharynx without erythema, edema, or exudates. Mucous membranes moist. No tonsillar enlargement. Uvula is midline. Airway is patent. Neck: Supple with no lymphadenopathy. Full range of motion. Heart: Regular rate and rhythm. S1,S2. No murmurs, rubs, or gallops. Lungs: Clear to auscultation bilaterally. No wheezes, rhonchi, rales. Equal chest expansion. No retractions. Neuro: GCS 15. Moving all extremities without discomfort. Headache improves with laying flat Course - Vital Signs Vital signs: Temp Pulse Resp BP Pulse Ox 98.2 F 73 20 146/92 H 97 07/28/20 12:23 07/28/20 12:23 07/28/20 12:23 07/28/20 12:23 07/28/20 12:23
[2020-07-28 15:20] LABS: ABSOLUTE EOSINOPHILS # (AUTO) 0.3 10^3/uL (0.0-0.6); ABSOLUTE LYMPHOCYTES (AUTO) 2.2 10^3/uL (0.5-4.7); ABSOLUTE MONOCYTES (AUTO) 0.9 10^3/uL (0.1-1.4); ABSOLUTE NEUT (AUTO) 6.1 10^3/uL (1.7-8.2); BASOPHILS % (AUTO) 0.5 % (0-2); EOSINOPHILS % (AUTO) 3.1 % (0-6); HEMATOCRIT 34.9 % (36.0-47.0); HEMOGLOBIN 11.6 g/dL (12.0-15.5); LYMPHOCYTES % (AUTO) 23.2 % (13-45); MEAN CORPUSCULAR HEMOGLOBIN 28.8 pg (27.0-33.4); MEAN CORPUSCULAR HGB CONC 33.3 g/dL (32.0-36.0); MEAN CORPUSCULAR VOLUME 86 fl (80-97); PLATELET COUNT 473 10^3/uL (150-450); RED BLOOD COUNT 4.04 10^6/uL (3.72-5.28); RED CELL DISTRIBUTION WIDTH 13.6 % (11.5-14.0); SEGMENTED NEUTROPHILS % (AUTO) 64.2 % (42-78); TOTAL CELLS COUNTED % (AUTO) 100 %; WHITE BLOOD COUNT 9.6 10^3/uL (4.0-10.5)
--- NOTE | 2020-07-28 15:40 | ER Document Report ---
Doctor's Note Notes: 07/28/20 15:38 Patient in room 15 stating that she needs to go home immediately because she is responsible for her family and she has to take care of her her daughter who is 8 years old. Patient had come to the emergency department because she reports that she is has a headache post a lumbar puncture anesthesia that was performed at another hospital recently. Patient had come to this hospital expecting to perhaps get a blood patch to help control a post lumbar puncture headache. Patient states she no longer has time to allow us to care for her any further this time because she needs to leave immediately. Patient was explained AGAINST MEDICAL ADVICE is that is what she has decided because we have not had a chance to care for her as she has requested patient understands the risk of leaving AGAINST MEDICAL ADVICE including worsening headache or . Patient understands the risks she is lucid oriented and competent to make this decision.
[2020-07-28 15:41] LABS: ALBUMIN 3.7 g/dL (3.5-5.0); ALKALINE PHOSPHATASE 176 U/L (38-126); ANION GAP 7 (5-19); ASPARTATE AMINO TRANSFERASE 32 U/L (14-36); BILIRUBIN,DIRECT 0.1 mg/dL (0.0-0.4); BILIRUBIN,TOTAL 0.2 mg/dL (0.2-1.3); BLOOD UREA NITROGEN 7 mg/dL (7-20); CALCIUM 9.1 mg/dL (8.4-10.2); CARBON DIOXIDE 28 mmol/L (22-30); CHLORIDE 105 mmol/L (98-107); GLUCOSE 90 mg/dL (75-110); POTASSIUM 4.2 mmol/L (3.6-5.0)
== END 2020-07-28 15:42 | disposition left against medical advice (07) ==
LOC: ER 11:45
DX: O90.89 Other complications of the puerperium, not elsewhere classified (principal); R51.9 Headache, unspecified; R11.2 Nausea with vomiting, unspecified; O16.5 Unspecified maternal hypertension, complicating the puerperium; Z98.890 Other specified postprocedural states; Z88.6 Allergy status to analgesic agent; Z88.5 Allergy status to narcotic agent; Z88.0 Allergy status to penicillin; Z87.892 Personal history of anaphylaxis; Z91.013 Allergy to seafood; Z88.8 Allergy status to other drugs, medicaments and biological substances; Z53.29 Procedure and treatment not carried out because of patient's decision for other reasons
CPT/HCPCS: 99281; 96360; 36415; 85025; 80053; J1885; J2765; J7030

== ENCOUNTER 2020-07-31 13:50 | Emergency (ER) | payer MEDICAID ==
[2020-07-31 14:30] VITALS: BP 140/100
[2020-07-31] MEDS ORDERED: NORMAL SALINE 1000 ML 1,000 ML IV ONE (14:37)
--- NOTE | 2020-07-31 14:41 | ER Document Report ---
ED Medical Screen (RME) - General Chief Complaint: Headache Stated Complaint: HEADACHE/NECK PAIN,POST EPIDURAL Time Seen by Provider: 07/31/20 14:33 TRAVEL OUTSIDE OF THE [place] IN LAST 30 DAYS: No - HPI Notes: 07/31/20 14:39 30-year-old female presents to the emergency room today for evaluation of head and neck pain status post receiving an epidural 10 days ago at [facility] when she gave vaginal . Reports since that time she has had a headache. Patient reports she delivered at 37 weeks due to history of preeclampsia. Denies any blurred vision double vision or loss of vision. Patient was seen in the emergency room on Thursday, July 28, left AMA. Reports pain is getting progressively worse. Denies any chest pain, shortness of breath, nausea vomiting diarrhea. Is not breast-feeding. Reports she has tried Tylenol and ibuprofen for pain control I have greeted and performed a rapid initial assessment of this patient. A comprehensive ED assessment and evaluation of the patient, analysis of test results and completion of the medical decision making process will be conducted by additional ED providers. PHYSICAL EXAMINATION: GENERAL: Well-appearing, well-nourished and in no acute distress. HEAD: Atraumatic, normocephalic. EYES: Pupils equal round extraocular movements intact, conjunctiva are normal. NECK: Normal range of motion CV: s1, s2 regular LUNGS: No respiratory distress Musculoskeletal: Normal range of motion NEUROLOGICAL: Normal speech, normal gait. SKIN: Warm, Dry, normal turgor, no rashes or lesions noted. The patient was evaluated during a global COVID-19 pandemic and that diagnosis was suspected/considered upon their initial presentation. Their evaluation, treatment and testing was consistent with current guidelines for patients who pr esent with complaints or symptoms and may be related to COVID-19. - Related Data Allergies/Adverse Reactions: morphine [Morphine] Allergy (Severe, Verified 06/21/20 16:34) Difficulty breathing/itch shellfish derived Allergy (Severe, Verified 06/21/20 16:34) Anaphylaxis iodine [Iodine] Allergy (Intermediate, Verified 06/21/20 16:34) RASH latex [Latex] Allergy (Intermediate, Verified 06/21/20 16:34) RASH diphenhydramine [From Benadryl] Allergy (Verified 06/21/20 16:34) Penicillins Allergy (Verified 06/21/20 16:34) verapamil Allergy (Verified 06/21/20 16:34) Tachycardia Past Medical History - Social History Family history: Reviewed & Not Pertinent, Hypertension, Other - copd - Past Medical History Cardiac Medical History: Reports: Hx Hypertension Denies: Hx Heart Attack Pulmonary Medical History: Reports: Hx Asthma - resolved Denies: Hx Bronchitis, Hx COPD, Hx Pneumonia Neurological Medical History: Reports: Hx Migraine. Denies: Hx Seizures Renal/ Medical History: Reports: Hx Kidney Stones, Hx Pelvic Inflammatory Disease. Denies: Hx Peritoneal Dialysis Musculoskeltal Medical History: Denies Hx Arthritis, Reports Hx Musculoskeletal Trauma Psychiatric Medical History: Reports: Hx Bipolar Disorder, Hx Depression, Hx Post Traumatic Stress Disorder Traumatic Medical History: Reports: Hx Fractures - Fractured ankle Past Surgical History: Reports: Hx Cholecystectomy, Hx Oral Surgery - wisdom tooth removal 07/2016, Hx Orthopedic Surgery - right ankle - Immunizations Immunizations up to date: Yes Hx Diphtheria, Pertussis, Tetanus Vaccination: Yes Physical Exam - Vital signs Vitals: Temp Pulse Resp BP Pulse Ox 98.6 F 62 20 140/100 H 99 07/31/20 14:29 07/31/20 14:29 07/31/20 14:29 07/31/20 14:29 07/31/20 14:29 Course - Vital Signs Vital signs: Temp Pulse Resp BP Pulse Ox 98.6 F 62 20 140/100 H 99 07/31/20 14:29 07/31/20 14:29 07/31/20 14:29 07/31/20 14:29 07/31/20 14:29
[2020-07-31 15:02] LABS: ABSOLUTE EOSINOPHILS # (AUTO) 0.4 10^3/uL (0.0-0.6); ABSOLUTE LYMPHOCYTES (AUTO) 2.4 10^3/uL (0.5-4.7); ABSOLUTE MONOCYTES (AUTO) 0.9 10^3/uL (0.1-1.4); ABSOLUTE NEUT (AUTO) 6.4 10^3/uL (1.7-8.2); BASOPHILS % (AUTO) 0.2 % (0-2); EOSINOPHILS % (AUTO) 3.8 % (0-6); HEMATOCRIT 35.5 % (36.0-47.0); LYMPHOCYTES % (AUTO) 23.8 % (13-45); MEAN CORPUSCULAR HEMOGLOBIN 28.6 pg (27.0-33.4); MEAN CORPUSCULAR HGB CONC 33.8 g/dL (32.0-36.0); MEAN CORPUSCULAR VOLUME 85 fl (80-97); MONOCYTES % (AUTO) 8.5 % (3-13); PLATELET COUNT 515 10^3/uL (150-450); RED BLOOD COUNT 4.19 10^6/uL (3.72-5.28); RED CELL DISTRIBUTION WIDTH 13.2 % (11.5-14.0); SEGMENTED NEUTROPHILS % (AUTO) 63.7 % (42-78); TOTAL CELLS COUNTED % (AUTO) 100 %; WHITE BLOOD COUNT 10.1 10^3/uL (4.0-10.5)
[2020-07-31 15:22] LABS: ALBUMIN 3.5 g/dL (3.5-5.0); ALKALINE PHOSPHATASE 147 U/L (38-126); ANION GAP 6 (5-19); ASPARTATE AMINO TRANSFERASE 25 U/L (14-36); BILIRUBIN,DIRECT 0.1 mg/dL (0.0-0.4); BILIRUBIN,TOTAL 0.3 mg/dL (0.2-1.3); BLOOD UREA NITROGEN 8 mg/dL (7-20); CALCIUM 9.2 mg/dL (8.4-10.2); CARBON DIOXIDE 29 mmol/L (22-30); CHLORIDE 106 mmol/L (98-107); GLUCOSE 92 mg/dL (75-110); POTASSIUM 4.1 mmol/L (3.6-5.0); TOTAL PROTEIN 6.6 g/dL (6.3-8.2)
[2020-07-31] MEDS ORDERED: KETOROLAC TROMETHAMINE INJ/PF 30 MG/1 ML SDV IV ONE (17:20)
--- NOTE | 2020-07-31 17:26 | ER Document Report ---
ED General - General Chief Complaint: Headache Stated Complaint: HEADACHE/NECK PAIN,POST EPIDURAL Time Seen by Provider: 07/31/20 14:33 TRAVEL OUTSIDE OF THE [place] IN LAST 30 DAYS: No - HPI Notes: Patient is a 30-year-old female who presents to the emergency department for evaluation of headache, neck, right shoulder pain. She underwent vaginal delivery and then tubal ligation on July 21. On the rates she started having pain in her head and neck. She states is worsened by movement, made better by laying down. She has had some waxing and waning of her pain but it is basically been constant since onset. She is still breast-feeding. She denies any visual changes. No difficulty speaking or swallowing. Moving her arms and legs without difficulty, although right upper extremity movement does seem to elicit her pain. She currently puts her pain at a 4 out of 5. Patient was induced on July 21 for preeclampsia. She has been taking her labetalol as directed. - Related Data Allergies/Adverse Reactions: morphine [Morphine] Allergy (Severe, Verified 07/31/20 15:55) Difficulty breathing/itch shellfish derived Allergy (Severe, Verified 07/31/20 15:55) Anaphylaxis iodine [Iodine] Allergy (Intermediate, Verified 07/31/20 15:55) RASH latex [Latex] Allergy (Intermediate, Verified 07/31/20 15:55) RASH diphenhydramine [From Benadryl] Allergy (Verified 07/31/20 15:55) Penicillins Allergy (Verified 07/31/20 15:55) verapamil Allergy (Verified 07/31/20 15:55) Tachycardia Past Medical History - General Information source: Patient - Social History Smoking Status: Never Smoker Family History: CAD, COPD, CVA, DM, Hyperlipidemia, Hypertension - Medical History Medical History: Other - Preeclampsia - Past Medical History Cardiac Medical History: Reports: Hx Hypertension Denies: Hx Heart Attack Pulmonary Medical History: Reports: Hx Asthma - resolved Denies: Hx Bronchitis, Hx COPD, Hx Pneumonia Neurological Medical History: Reports: Hx Migraine. Denies: Hx Seizures Renal/ Medical History: Reports: Hx Kidney Stones, Hx Pelvic Inflammatory Disease. Denies: Hx Peritoneal Dialysis Musculoskeletal Medical History: Denies Hx Arthritis, Reports Hx Musculoskeletal Trauma Psychiatric Medical History: Reports: Hx Bipolar Disorder, Hx Depression, Hx Post Traumatic Stress Disorder Traumatic Medical History: Reports: Hx Fractures - Fractured ankle Past Surgical History: Reports: Hx Cholecystectomy, Hx Oral Surgery - wisdom tooth removal 07/2016, Hx Orthopedic Surgery - right ankle, Hx Tubal Ligation - Immunizations Immunizations up to date: Yes Hx Diphtheria, Pertussis, Tetanus Vaccination: Yes Review of Systems - Review of Systems Constitutional: No symptoms reported EENT: No symptoms reported Cardiovascular: No symptoms reported Respiratory: No symptoms reported Gastrointestinal: No symptoms reported Genitourinary: No symptoms reported Musculoskeletal: See HPI Skin: No symptoms reported Neurological/Psychological: See HPI Physical Exam - Vital signs Vitals: Temp Pulse Resp BP Pulse Ox 98.6 F 62 20 140/100 H 99 07/31/20 14:29 07/31/20 14:29 07/31/20 14:29 07/31/20 14:29 07/31/20 14:29 - Notes Notes: Vital signs reviewed, please refer to chart. Head is normocephalic, atraumatic. Pupils equal round, reactive to light. Examination of the cervical spine shows no midline tenderness step-off. She has paraspinal muscular tenderness throughout the right paraspinal muscles and into the right trapezius, overlying all the way to the first rib and into the shoulder. She does not have any significant nuchal rigidity but flexion of the neck does elicit pain. Negative Brudzinski's and Kernig signs. Heart is regular rate and rhythm. Lungs are clear to auscultation bilaterally. Abdomen is soft, nontender, normoactive bowel sounds throughout. Extremities without cyanosis, clubbing. Posterior calves are nontender. Peripheral pulses are equal. Skin is warm and dry. Patient is awake, alert, oriented x3. Cranial nerves II - XII are grossly intact without focal neurological deficits. Strength is plus 5 out of 5 bilateral upper and lower extremities. Sensation is intact. Reflexes symmetrical. Intact [id number], rapid alternating movements, [id number]. Course - Re-evaluation Re-evalutation: 07/31/20 17:23 Patient presents to the emergency department for evaluation. Laboratory investigations are ordered as through triage. Patient was concerned about the possibility of a spinal headache given the fact that when she is recumbent it feels improved, but the symptoms are late for a spinal headache. It seems more likely to me that this is musculoskeletal. I will treat her here with Toradol, send her with a prescription for Flexeril. She is to take ibuprofen over -the-counter as needed for severe pain. We talked about her blood pressure remaining elevated as well and she is to follow-up closely with GROUP HOME COUNSELOR in regards to this. She voiced understanding and will be discharged. - Vital Signs Vital signs: Temp Pulse Resp BP Pulse Ox 98.6 F 62 20 140/100 H 99 07/31/20 14:29 07/31/20 14:29 07/31/20 14:29 07/31/20 14:29 07/31/20 14:29 - Laboratory Results Result Diagrams: 07/31/20 14:47 07/31/20 14:47 Laboratory Results Interpreted: 07/31/20 07/31/20 14:47 14:47 Hct 35.5 L Plt Count 515 H Alkaline Phosphatase 147 H Critical Laboratory Results Reviewed: No Critical Results - Radiology Results Critical Radiology Results Reviewed: No Critical Results Discharge - Discharge Clinical Impression: Elevated blood pressure reading Tension type headache Qualifiers: Headache chronicity pattern: acute headache Condition: Stable Disposition: HOME, SELF-CARE Instructions: Tension Headache ([facility]), Toradol Injection ([facility]) Additional Instructions: Your findings today are most consistent with a tension headache. Continue heat to the area. Gentle stretching. Take ibuprofen as needed for pain. He can also take the Flexeril, please watch for drowsiness and dizziness with this medication. Your blood pressure was borderline elevated here today. This may be secondary to pain, but given your recent diagnosis of preeclampsia, please follow-up closely with your GROUP HOME COUNSELOR regarding this issue. If you develop difficulty seeing, speaking, swallowing, difficulty moving an arm or leg, or any other new or concerning symptoms, please return immediately to the emergency department for evaluation. Prescriptions: Cyclobenzaprine HCl 5 mg PO TIDP PRN #15 tablet PRN Reason: Neck pain/headache
== END 2020-07-31 17:49 | disposition home or self-care (01) ==
LOC: ER 13:50
DX: O90.9 Complication of the puerperium, unspecified (principal); R03.0 Elevated blood-pressure reading, without diagnosis of hypertension; G44.209 Tension-type headache, unspecified, not intractable; M54.2 Cervicalgia; M25.511 Pain in right shoulder; Z98.51 Tubal ligation status
CPT/HCPCS: 99284; 96361; 96374; 36415; 85025; 80053; J7030

== ENCOUNTER 2020-08-01 19:24 | Emergency (ER) | payer MEDICAID ==
[2020-08-01] MEDS ORDERED: LABETALOL HCL INJ 20 MG/4 ML DISP.SYRIN IV ONE (19:38)
--- NOTE | 2020-08-01 19:38 | ER Document Report ---
ED Medical Screen (RME) - General Chief Complaint: Blood Pressure Problem Stated Complaint: HIGH BLOOD PRESSURE Time Seen by Provider: 08/01/20 19:29 Notes: HPI: 30-year-old female presenting for evaluation of headache and hypertension. Has history of hypertension. Delivered vaginally at 37 weeks on July 21 at [facility]. Patient has had problems with preeclampsia previously. Denies abdominal pain. Complains of some blurred vision. Complains of a generalized posterior headache. PHYSICAL EXAMINATION: Patient is significantly hypertensive. Lung sounds are clear to auscultation. She is neurologically intact. I spoke with Dr. Elyse Garcia CUSTOMER EXPERIENCE LEADER. She requests that we give IV labetalol 20 mg now, repeat blood pressure in 20 minutes if systolic greater than 160 repeat the labetalol 20 mg IV. She requests a 4 g magnesium bolus and a drip to start at 2 g/h patient will need admission I have greeted and performed a rapid initial assessment of this patient. A comprehensive ED assessment and evaluation of the patient, analysis of test results and completion of medical decision making process will be conducted by an additional ED providers. Please note that clinical decision making for this patient was made during the 2019 pandemic of novel coronavirus which caused a significant strain on the healthcare system including at this particular facility. Criteria for admission discharge and level of care decisions as well as treatment decisions have necessarily changed TRAVEL OUTSIDE OF THE [place] IN LAST 30 DAYS: No - Related Data Allergies/Adverse Reactions: morphine [Morphine] Allergy (Severe, Verified 07/31/20 15:55) Difficulty breathing/itch shellfish derived Allergy (Severe, Verified 07/31/20 15:55) Anaphylaxis iodine [Iodine] Allergy (Intermediate, Verified 07/31/20 15:55) RASH latex [Latex] Allergy (Intermediate, Verified 07/31/20 15:55) RASH diphenhydramine [From Benadryl] Allergy (Verified 07/31/20 15:55) Penicillins Allergy (Verified 07/31/20 15:55) verapamil Allergy (Verified 07/31/20 15:55) Tachycardia Past Medical History - Social History Family history: Reviewed & Not Pertinent, Hypertension, Other - copd - Past Medical History Cardiac Medical History: Reports: Hx Hypertension Denies: Hx Heart Attack Pulmonary Medical History: Reports: Hx Asthma - resolved Denies: Hx Bronchitis, Hx COPD, Hx Pneumonia Neurological Medical History: Reports: Hx Migraine. Denies: Hx Seizures Renal/ Medical History: Reports: Hx Kidney Stones, Hx Pelvic Inflammatory Disease. Denies: Hx Peritoneal Dialysis Musculoskeltal Medical History: Denies Hx Arthritis, Reports Hx Musculoskeletal Trauma Psychiatric Medical History: Reports: Hx Bipolar Disorder, Hx Depression, Hx Post Traumatic Stress Disorder Traumatic Medical History: Reports: Hx Fractures - Fractured ankle Past Surgical History: Reports: Hx Cholecystectomy, Hx Oral Surgery - wisdom tooth removal 07/2016, Hx Orthopedic Surgery - right ankle, Hx Tubal Ligation - Immunizations Immunizations up to date: Yes Hx Diphtheria, Pertussis, Tetanus Vaccination: Yes
[2020-08-01] MEDS ORDERED: MAGNESIUM SULFATE 4 GM/100 ML RTUPB IV ONE (19:39)
[2020-08-01 20:17] LABS: ABSOLUTE EOSINOPHILS # (AUTO) 0.5 10^3/uL (0.0-0.6); ABSOLUTE LYMPHOCYTES (AUTO) 2.5 10^3/uL (0.5-4.7); ABSOLUTE NEUT (AUTO) 7.3 10^3/uL (1.7-8.2); BASOPHILS % (AUTO) 0.3 % (0-2); EOSINOPHILS % (AUTO) 4.1 % (0-6); HEMATOCRIT 33.4 % (36.0-47.0); HEMOGLOBIN 11.5 g/dL (12.0-15.5); LYMPHOCYTES % (AUTO) 21.9 % (13-45); MEAN CORPUSCULAR HGB CONC 34.4 g/dL (32.0-36.0); MEAN CORPUSCULAR VOLUME 84 fl (80-97); MONOCYTES % (AUTO) 8.5 % (3-13); PLATELET COUNT 490 10^3/uL (150-450); RED BLOOD COUNT 3.96 10^6/uL (3.72-5.28); RED CELL DISTRIBUTION WIDTH 13.3 % (11.5-14.0); SEGMENTED NEUTROPHILS % (AUTO) 65.2 % (42-78); TOTAL CELLS COUNTED % (AUTO) 100 %; WHITE BLOOD COUNT 11.2 10^3/uL (4.0-10.5)
[2020-08-01 20:25] LABS: APPEARANCE,URINE CLEAR; BILIRUBIN,URINE NEGATIVE (NEGATIVE); COLOR,URINE STRAW; GLUCOSE, URINE NEGATIVE (NEGATIVE); KETONES,URINE NEGATIVE (NEGATIVE); LEUKOCYTE ESTERASE,URINE MODERATE (NEGATIVE); NITRITE,URINE NEGATIVE (NEGATIVE); PROTEIN,URINE NEGATIVE (NEGATIVE); URINE SPECIFIC GRAVITY 1.008; UROBILINOGEN,URINE NEGATIVE mg/dL (<2.0)
[2020-08-01 20:35] LABS: ALBUMIN 3.7 g/dL (3.5-5.0); ALKALINE PHOSPHATASE 136 U/L (38-126); ANION GAP 6 (5-19); ASPARTATE AMINO TRANSFERASE 28 U/L (14-36); BILIRUBIN,DIRECT 0.1 mg/dL (0.0-0.4); BILIRUBIN,TOTAL 0.3 mg/dL (0.2-1.3); BLOOD UREA NITROGEN 10 mg/dL (7-20); CALCIUM 9.3 mg/dL (8.4-10.2); CARBON DIOXIDE 28 mmol/L (22-30); CHLORIDE 104 mmol/L (98-107); GLUCOSE 92 mg/dL (75-110)
[2020-08-01 20:46] LABS: UR PRO/CREAT RATIO RESULT 0.3 mg/mg (0.0-0.2); URINE CREATININE 46.9 mg/dL (16-327); URINE PROTEIN 15.1 mg/dL (<12)
[2020-08-01] MEDS: MAGNESIUM SULFATE/D5W 1 GM/100 ML RTUPB IV SCH ×2 (21:19→22:26)
--- NOTE | 2020-08-01 21:25 | ER Document Report ---
ED General - General Chief Complaint: Blood Pressure Problem Stated Complaint: HIGH BLOOD PRESSURE Time Seen by Provider: 08/01/20 19:29 TRAVEL OUTSIDE OF THE [place] IN LAST 30 DAYS: No - HPI Notes: 30-year-old female presents with high blood pressure and headache. Patient is 10 days . She states that she she has a history of preeclampsia with her 3 previous pregnancies. She states she has a history of high blood pressure and does take daily blood pressure medications. She states that she has had 1 week of headache, high blood pressure with systolics in the 200s, seeing stars. She states that she has not told her OB about it because she has an appointment tomorrow morning. She delivered at [facility]. - Related Data Allergies/Adverse Reactions: morphine [Morphine] Allergy (Severe, Verified 08/01/20 21:14) Difficulty breathing/itch shellfish derived Allergy (Severe, Verified 08/01/20 21:14) Anaphylaxis iodine [Iodine] Allergy (Intermediate, Verified 08/01/20 21:14) RASH latex [Latex] Allergy (Intermediate, Verified 08/01/20 21:14) RASH diphenhydramine [From Benadryl] Allergy (Verified 08/01/20 21:14) Penicillins Allergy (Verified 08/01/20 21:14) verapamil Allergy (Verified 08/01/20 21:14) Tachycardia Past Medical History - General Information source: Patient - Social History Smoking Status: Never Smoker Family History: CAD, COPD, CVA, DM, Hyperlipidemia, Hypertension Patient has homicidal ideation: No - Past Medical History Cardiac Medical History: Reports: Hx Hypertension Denies: Hx Heart Attack Pulmonary Medical History: Reports: Hx Asthma - resolved Denies: Hx Bronchitis, Hx COPD, Hx Pneumonia Neurological Medical History: Reports: Hx Migraine. Denies: Hx Seizures Renal/ Medical History: Reports: Hx Kidney Stones, Hx Pelvic Inflammatory Disease. Denies: Hx Peritoneal Dialysis Musculoskeletal Medical History: Denies Hx Arthritis, Reports Hx Musculoskeletal Trauma Psychiatric Medical History: Reports: Hx Bipolar Disorder, Hx Depression, Hx Post Traumatic Stress Disorder Traumatic Medical History: Reports: Hx Fractures - Fractured ankle Past Surgical History: Reports: Hx Cholecystectomy, Hx Oral Surgery - wisdom tooth removal 07/2016, Hx Orthopedic Surgery - right ankle, Hx Tubal Ligation - Immunizations Immunizations up to date: Yes Hx Diphtheria, Pertussis, Tetanus Vaccination: Yes Review of Systems - Review of Systems Constitutional: denies: Fever EENT: Blurred vision Cardiovascular: denies: Chest pain Respiratory: denies: Short of breath Gastrointestinal: denies: Abdominal pain Genitourinary: No symptoms reported Female Genitourinary: No symptoms reported Musculoskeletal: No symptoms reported Skin: No symptoms reported Hematologic/Lymphatic: No symptoms reported Neurological/Psychological: Headaches. denies: Weakness Physical Exam - Vital signs Vitals: Temp Pulse Resp BP Pulse Ox 98.2 F 71 18 173/116 H 98 08/01/20 20:01 08/01/20 20:01 08/01/20 20:01 08/01/20 20:01 08/01/20 20:01 - General General appearance: Appears well, Alert In distress: None - HEENT Head: Normocephalic, Atraumatic Extraocular movements intact: Yes Pupils: PERRL - Respiratory Breath sounds: Normal - Cardiovascular Rhythm: Regular Heart sounds: Normal auscultation - Abdominal Tenderness: Nontender - Extremities General lower extremity: No: Edema - Neurological Neuro grossly intact: Yes Cognition: Normal Orientation: AAOx4 Speech: Normal Cranial nerves: Normal Motor strength normal: LUE, RUE, LLE, RLE Sensory: Normal Knee - Reflex grade: 3 = Increased - Skin Skin Temperature: Warm Course - Re-evaluation Re-evalutation: 30-year-old female 10 days with history of preeclampsia here for posterior headache and hypertension x1 week. Patient was markedly hypertensive on arrival, severe range blood pressures on multiple readings, OB has already been contacted and treatment with labetalol and magnesium has been initiated as there is a high concern for preeclampsia. On exam she is alert, GCS 15, no focal neuro deficits. She is hyperreflexic in her lower extremities. Plan is for admission to the OB service, however patient is currently stating that she does not want to be admitted, she just wants to go home and be seen in the office tomorrow. I discussed with patient that she currently has a serious condition and it would be strongly against medical advice. Patient wants to talk with her at this time, will readdress. 08/01/20 22:21 Blood pressure has decreased to less than 160 systolic 08/01/20 22:24 I went in to rediscuss with patient her choice to leave AMA versus stay for admission. Patient states that she feels like she is going to go home. I d iscussed with her multiple times how serious of the situation preeclampsia is and this is a life-threatening condition. I am concerned that patient who is a mother of 4 potentially has poor insight into the situation. I did ask patient what will happen if she were to at home in which she replied "I guess that's just what would happen". It is possible that the preeclampsia has clouded her judgement. She states that her goes to work at 3 and therefore she has to be home with the children. I again discussed with her the severity of the situation, and suggested perhaps her not go to work or if there was a way for her to arrange a family member to take care of the children. She then asked me to call her to discuss with him as she did not believe it would be an option. 08/01/20 22:30 Called Ean, no answer, left message 08/01/20 22:52 Again had a conversation with the patient with nursing present as a witness. I expressed grave concern to patient about her health and wellbeing, I also discussed my concern about her poor insight into the situation. Patient resistant at first stating "it's just my blood pressure" and asked if I could just prescribe her something so that she could go home and go to her appointment in the morning. I again discussed the pathogenesis of preeclampsia and the life-threatening nature of the disease process. Patient ultimately became agreeable to admission. I did put in a social work consult so that a home scr eening may take place. Dr Garcia was updated on the situation. 08/01/20 23:29 Made aware of situation via nursing and patient advocate that patient drove the family's only car which has car seats in it. Patient stated that her mother was staying locally in an extended stay, and will likely be able to come in the morning to get the car to bring it to the . She knows that when her wakes up in the morning and sees that she is not there he will call out of work. However it was also disclosed that patient's has sleep apnea/uses CPAP, known to be a heavy sleeper, concerning given that he is at home with a 10-day-old and 3 other children - Vital Signs Vital signs: Temp Pulse Resp BP Pulse Ox 98.2 F 71 14 178/113 H 99 08/01/20 20:01 08/01/20 20:01 08/01/20 23:01 08/01/20 23:01 08/01/20 23:01 - Laboratory Results Result Diagrams: 08/01/20 19:45 08/01/20 19:45 Laboratory Results Interpreted: 08/01/20 08/01/20 08/01/20 19:45 19:45 19:45 WBC 11.2 H Hgb 11.5 L Hct 33.4 L Plt Count 490 H Alkaline Phosphatase 136 H Urine Blood Ur Leukocyte Esterase Protein/Creatinin Ratio 0.3 H Urine Total Protein 15.1 H 08/01/20 19:45 WBC Hgb Hct Plt Count Alkaline Phosphatase Urine Blood LARGE H Ur Leukocyte Esterase MODERATE H Protein/Creatinin Ratio Urine Total Protein Critical Laboratory Results Reviewed: No Critical Results - Radiology Results Critical Radiology Results Reviewed: No Critical Results Discharge - Discharge Clinical Impression: Pre-eclampsia, Condition: Stable Disposition: ADMITTED INPATIENT Admitting Provider: GARCIA Unit Admitted: Post
[2020-08-01 23:09] VITALS: BP 178/113
--- NOTE | 2020-08-01 23:39 | Non Stress Test Report ---
Non Stress Test Datetime Report Generated by CPN: 08/01/2020 23:39 DEMOGRAPHIC EGA NST: 36.4 VITAL SIGNS Temperature - NST: 97.4 Pulse - NST: 71 RESP - NST: 20 NBPSYS NST: 131 NBPDIA NST: 76 MONITORING Monitor Explained: Monitor Explained; Test Explained; Patient Verbalized Understanding Time on Monitor: 07/13/2020 18:23 Time off Monitor: 07/13/2020 18:43 NST Duration: 20 NST INTERVENTIONS NST Interventions: PO Hydration Physician Notified NST: Dr. Callie BABY A: [id number] BABY A Movement : Present Contraction Frequency : Irregular FHR Baseline : 130 Accelerations : 15X15 Decelerations : None Variability : Moderate 6-25bpm NST Review: Meets Criteria for Reactive NST NST Review and Verified By : Boni Ann RN Results: Reactive NST REPORT Report Trigger: Send Report
[2020-08-02] MEDS ORDERED: MAGNESIUM SULFATE 20 GM/500 ML RTUINJ IV PRN (00:18)
[2020-08-02] MEDS ORDERED: MAGNESIUM SULFATE 0 GM/0 ML RTUINJ IV ONE (00:19)
[2020-08-02] MEDS ORDERED: LABETALOL HCL INJ 20 MG/4 ML DISP.SYRIN IV ONE ×2 (00:19→00:30)
[2020-08-02] MEDS ORDERED: ACETAMINOPHEN 325 MG TABLET ONE (00:33)
[2020-08-02] MEDS ORDERED: ACETAMINOPHEN 325 MG TABLET PO ONE (00:40)
== END 2020-08-02 01:00 | disposition other institution (70) ==
LOC: ER 19:24 → EH 23:23 → UNDOADMIN 23:23 → ER 08-02 01:00 → UNDODISIN 08-02 01:00
DX: O14.95 Unspecified pre-eclampsia, complicating the puerperium (principal); O90.89 Other complications of the puerperium, not elsewhere classified; R51.9 Headache, unspecified; Z79.899 Other long term (current) drug therapy; Z88.6 Allergy status to analgesic agent; Z88.5 Allergy status to narcotic agent; Z87.892 Personal history of anaphylaxis; Z91.013 Allergy to seafood; Z91.040 Latex allergy status; Z88.8 Allergy status to other drugs, medicaments and biological substances; Z88.0 Allergy status to penicillin; Z53.29 Procedure and treatment not carried out because of patient's decision for other reasons
CPT/HCPCS: 99285; 96375; 96365; 96366; 83615; 84156; 82570; 85025; 80053; 81001; J3475 ×2; J3490 ×3

== ENCOUNTER 2020-08-06 17:24 | Emergency (ER) | payer MEDICAID ==
--- NOTE | 2020-08-06 18:08 | ER Document Report ---
ED Medical Screen (RME) - General Chief Complaint: Wound Infection Stated Complaint: PAIN/DRAINAGE,POST TUBAL LIGATION Time Seen by Provider: 08/06/20 17:53 Notes: Patient is a 30-year-old female comes emergency room complaining of having drain age from her umbilicus. Patient states that she gave vaginal on 07/21/2020 and that on 07 22 they went and did a tubal ligation through the umbilicus. She has been doing good with no problems since that point time. However yesterday patient woke up and she went to set up she had a little pus come out from around the umbilicus and over the course of the next 24 hours it has gotten very swoll en and warm to feel erythematous and painful. Patient denies any fevers but states has been taken Tylenol patient states he only other medical problems she has had is preeclampsia. She denies any other medical problems. Physical lamination: Patient is a well-nourished well-developed 30-year-old no apparent distress on examination. Cardiac: Patient has a rate of 86 bpm on monitor no murmurs auscultated. Patient's blood pressure is 165/109 Lungs: Bilateral breath sounds increased clear to auscultation. Abdomen: In the sitting position patient does have from her umbilicus some dried blood there is a moderate base of erythematous around the umbilicus more into the left lower abdominal quadrant area. Moderate warmth to touch in that same area. Very tender to touch in that area. Patient does display good bowel sounds in all 4 quadrants. I have greeted and performed a rapid initial assessment of this patient. A comprehensive ED assessment and evaluation of the patient, analysis of test results and completion of the medical decision making process will be conducted by additional ED providers. Dictation of this chart was performed using voice recognition software; therefore, there may be some unintended grammatical errors. TRAVEL OUTSIDE OF THE [place] IN LAST 30 DAYS: No - Related Data Allergies/Adverse Reactions: morphine [Morphine] Allergy (Severe, Verified 08/06/20 17:47) Difficulty breathing/itch shellfish derived Allergy (Severe, Verified 08/06/20 17:47) Anaphylaxis iodine [Iodine] Allergy (Intermediate, Verified 08/06/20 17:47) RASH latex [Latex] Allergy (Intermediate, Verified 08/06/20 17:47) RASH diphenhydramine [From Benadryl] Allergy (Verified 08/06/20 17:47) Penicillins Allergy (Verified 08/06/20 17:47) verapamil Allergy (Verified 08/06/20 17:47) Tachycardia Home Medications: Lisinopril 10 mg. Labataolol 10 mg Past Medical History - Social History Chew tobacco use (# tins/day): No Frequency of alcohol use: None Drug Abuse: None Family history: Reviewed & Not Pertinent, Hypertension, Other - copd - Past Medical History Cardiac Medical History: Reports: Hx Hypertension Denies: Hx Heart Attack Pulmonary Medical History: Reports: Hx Asthma - resolved Denies: Hx Bronchitis, Hx COPD, Hx Pneumonia Neurological Medical History: Reports: Hx Migraine. Denies: Hx Seizures Renal/ Medical History: Reports: Hx Kidney Stones, Hx Pelvic Inflammatory Disease. Denies: Hx Peritoneal Dialysis Musculoskeltal Medical History: Denies Hx Arthritis, Reports Hx Musculoskeletal Trauma Psychiatric Medical History: Reports: Hx Bipolar Disorder, Hx Depression, Hx Post Traumatic Stress Disorder Traumatic Medical History: Reports: Hx Fractures - Fractured ankle Past Surgical History: Reports: Hx Cholecystectomy, Hx Oral Surgery - wisdom tooth removal 07/2016, Hx Orthopedic Surgery - right ankle, Hx Tubal Ligation - Immunizations Immunizations up to date: Yes Hx Diphtheria, Pertussis, Tetanus Vaccination: Yes Physical Exam - Vital signs Vitals: Temp Pulse Resp BP Pulse Ox 98.9 F 86 20 154/112 H 99 08/06/20 17:47 08/06/20 17:47 08/06/20 17:47 08/06/20 17:47 08/06/20 17:47 Course - Vital Signs Vital signs: Temp Pulse Resp BP Pulse Ox 98.9 F 86 20 154/112 H 99 08/06/20 17:47 08/06/20 17:47 08/06/20 17:47 08/06/20 17:47 08/06/20 17:47
[2020-08-06 19:06] LABS: ABSOLUTE BASOPHILS # (AUTO) 0.1 10^3/uL (0.0-0.2); ABSOLUTE EOSINOPHILS # (AUTO) 0.4 10^3/uL (0.0-0.6); ABSOLUTE LYMPHOCYTES (AUTO) 2.5 10^3/uL (0.5-4.7); ABSOLUTE MONOCYTES (AUTO) 0.8 10^3/uL (0.1-1.4); ABSOLUTE NEUT (AUTO) 6.5 10^3/uL (1.7-8.2); BASOPHILS % (AUTO) 1.1 % (0-2); EOSINOPHILS % (AUTO) 4.2 % (0-6); HEMATOCRIT 38.9 % (36.0-47.0); HEMOGLOBIN 12.9 g/dL (12.0-15.5); LYMPHOCYTES % (AUTO) 24.1 % (13-45); MEAN CORPUSCULAR HEMOGLOBIN 28.4 pg (27.0-33.4); MEAN CORPUSCULAR HGB CONC 33.2 g/dL (32.0-36.0); MEAN CORPUSCULAR VOLUME 86 fl (80-97); MONOCYTES % (AUTO) 7.4 % (3-13); PLATELET COUNT 487 10^3/uL (150-450); RED BLOOD COUNT 4.54 10^6/uL (3.72-5.28); RED CELL DISTRIBUTION WIDTH 13.5 % (11.5-14.0); SEGMENTED NEUTROPHILS % (AUTO) 63.2 % (42-78); TOTAL CELLS COUNTED % (AUTO) 100 %; WHITE BLOOD COUNT 10.3 10^3/uL (4.0-10.5)
[2020-08-06 19:48] LABS: APPEARANCE,URINE CLEAR; BILIRUBIN,URINE NEGATIVE (NEGATIVE); COLOR,URINE YELLOW; GLUCOSE, URINE NEGATIVE (NEGATIVE); KETONES,URINE NEGATIVE (NEGATIVE); LEUKOCYTE ESTERASE,URINE SMALL (NEGATIVE); NITRITE,URINE NEGATIVE (NEGATIVE); PROTEIN,URINE NEGATIVE (NEGATIVE); URINE SPECIFIC GRAVITY 1.009; UROBILINOGEN,URINE NEGATIVE mg/dL (<2.0)
[2020-08-06] MEDS ORDERED: CLINDAMYCIN 300 MG/D5W RTU 300 MG/50 ML RTUPB IV ONE (21:06)
--- NOTE | 2020-08-06 21:08 | ER Document Report ---
ED Wound - General Chief Complaint: Wound Infection Stated Complaint: PAIN/DRAINAGE,POST TUBAL LIGATION Time Seen by Provider: 08/06/20 17:53 Notes: Patient is a 30-year-old female who presents emergency department with a chief complaint of purulent drainage from her umbilical area. Patient had a vaginal delivery on July 21 at [facility]. She then ended up having a tubal ligation the next day. He had no difficulties with postop, but yesterday the patient noticed a red bump to her umbilical area at the surgic al site and today she ended up having purulent drainage draining from her surgical site. TRAVEL OUTSIDE OF THE [place] IN LAST 30 DAYS: No - Related Data Allergies/Adverse Reactions: morphine [Morphine] Allergy (Severe, Verified 08/06/20 17:47) Difficulty breathing/itch shellfish derived Allergy (Severe, Verified 08/06/20 17:47) Anaphylaxis iodine [Iodine] Allergy (Intermediate, Verified 08/06/20 17:47) RASH latex [Latex] Allergy (Intermediate, Verified 08/06/20 17:47) RASH diphenhydramine [From Benadryl] Allergy (Verified 08/06/20 17:47) Penicillins Allergy (Verified 08/06/20 17:47) verapamil Allergy (Verified 08/06/20 17:47) Tachycardia Home Medications: Lisinopril 10 mg. Labataolol 10 mg Past Medical History - General Information source: Patient - Social History Smoking Status: Never Smoker Chew tobacco use (# tins/day): No Frequency of alcohol use: None Drug Abuse: None Family History: CAD, COPD, CVA, DM, Hyperlipidemia, Hypertension Patient has homicidal ideation: No - Past Medical History Cardiac Medical History: Reports: Hx Hypertension Denies: Hx Heart Attack Pulmonary Medical History: Reports: Hx Asthma - resolved Denies: Hx Bronchitis, Hx COPD, Hx Pneumonia Neurological Medical History: Reports: Hx Migraine. Denies: Hx Seizures Renal/ Medical History: Reports: Hx Kidney Stones, Hx Pelvic Inflammatory Disease. Denies: Hx Peritoneal Dialysis Musculoskeletal Medical History: Denies Hx Arthritis, Reports Hx Musculoskeletal Trauma Psychiatric Medical History: Reports: Hx Bipolar Disorder, Hx Depression, Hx Post Traumatic Stress Disorder Traumatic Medical History: Reports: Hx Fractures - Fractured ankle Past Surgical History: Reports: Hx Cholecystectomy, Hx Oral Surgery - wisdom tooth removal 07/2016, Hx Orthopedic Surgery - right ankle, Hx Tubal Ligation - Immunizations Immunizations up to date: Yes Hx Diphtheria, Pertussis, Tetanus Vaccination: Yes Review of Systems - Review of Systems Notes: REVIEW OF SYSTEMS: CONSTITUTIONAL : Denies recent illness. Denies recent unintentional weight loss. Denies fever, chills, or sweats. EENT: Denies eye, ear, throat, or mouth pain, discharge, or symptoms. Denies nasal or sinus congestion. CARDIOVASCULAR: Denies chest pain. RESPIRATORY: Denies shortness of breath, cough, congestion, difficulty breathing, or wheezing. GASTROINTESTINAL: Denies nausea, vomiting, and diarrhea. Denies abdominal pain. Denies constipation. GENITOURINARY: Denies difficulty urinating, burning, blood in urine, urgency or frequency. MUSCULOSKELETAL: Denies neck and back pain. Denies joint pain or swelling. SKIN: See HPI. HEMATOLOGIC : Denies easy bruising or bleeding. LYMPHATIC: Denies swollen, painful, enlarged glands. NEUROLOGICAL: Denies no numbness or tingling denies weakness. Denies headache. Denies altered mental status. Denies alteration in speech. PSYCHIATRIC: Denies stress, anxiety, alteration in sleep patterns, or de pression. All other systems reviewed and negative. Physical Exam - Vital signs Vitals: Temp Pulse Resp BP Pulse Ox 98.9 F 86 20 154/112 H 99 08/06/20 17:47 08/06/20 17:47 08/06/20 17:47 08/06/20 17:47 08/06/20 17:47 - Notes Notes: PHYSICAL EXAMINATION: GENERAL: Appears well, healthy, well-nourished, no acute distress. HEAD: Normocephalic, atraumatic. EYES: PERRL, conjunctiva normal, all extraocular movements intact, sclera nonicteric ENT: Moist mucous membranes. NECK: Supple, no noticeable swelling, redness, rash. Normal range of motion. LUNGS: Equal breath sounds bilaterally and clear to auscultation. No wheezes rales or rhonchi. CARDIOVASCULAR: S1-S2, regular rate, regular rhythm. Radial pulses 2+, normal. ABDOMEN: Normoactive bowel sounds. Soft, nontender, no guarding, no rebound tenderness, and no masses palpated. EXTREMITIES: Normal strength and range of motion, no pitting or edema. No cyanosis. NEUROLOGICAL: Moves all extremities upon command. Strength 5/5 in all extremities. PSYCH: Normal mood, normal affect. SKIN: Warm, dry. Erythema noted around surgical incision at umbilicus with purulent drainage. Course - Re-evaluation Re-evalutation: 08/06/20 21:08 Patient wanted to leave AGAINST MEDICAL ADVICE and did not want to have the CT scan done. She said she wanted to go home to her baby. I recommended that she stay and have a CT scan to determine how extensive the abscess at the surgical site is. Patient then agreed to stay. We will proceed with CT. 08/06/20 21:30 Unfortunately the patient has decided to leave AGAINST MEDICAL ADVICE despite having that lengthy conversation with the patient earlier. Patient states that she is going to go to [facility], as her [employer] WORK[employer] is over there. The patient has chosen to leave the facility against medical advice. The relevant issues have been reviewed and discussed with the patient and family at the bedside. At the time of this assessment there is no indication for i nvoluntary commitment. The patient is alert, oriented, and able to express clearly their reasoning for not wanting to remain in the emergency department for further treatment. The patient is not clinically psychotic, intoxicated, and denies and suicidal ideation. Differential or suspected diagnoses based on medical screening exam: Surgical site infection. Possible sepsis. The patient is aware of the concerning diagnoses and acknowledges understanding of the reasons for the following recommendations: To rule out abscess from surgical site. The following recommendations/services were offered and refused: CT scan, labs, IV fluids, and IV antibiotics. The following risks were explained: , permanent disability, loss of function, sepsis. Clinical impression: Patient is competent to make decisions regarding the medical that is being offered. - Vital Signs Vital signs: Temp Pulse Resp BP Pulse Ox 98.9 F 86 20 154/112 H 99 08/06/20 17:47 08/06/20 17:47 08/06/20 17:47 08/06/20 17:47 08/06/20 17:47 - Laboratory Results Result Diagrams: 08/06/20 18:45 08/06/20 18:45 Laboratory Results Interpreted: 08/06/20 08/06/20 18:45 19:10 Plt Count 487 H Urine Blood LARGE H Ur Leukocyte Esterase SMALL H Critical Laboratory Results Reviewed: No Critical Results - Radiology Results Critical Radiology Results Reviewed: No Critical Results Discharge - Discharge Clinical Impression: Abscess, Surgical site infection Condition: Stable Disposition: AGAINST MEDICAL ADVICE Additional Instructions: You were seen today in the emergency department for drainage from your surgery site. You are deciding to leave AGAINST MEDICAL ADVICE. There is a possibility you can go home and get a blood infection throughout your entire body and . I highly advise that you see your [employer] immediately or go to [facility]. If you decide not to go over there, get the antibiotic filled immediately and take the medicine. Prescriptions: Clindamycin HCl [Cleocin 150 mg Capsule] 300 mg PO Q6 7 Days #56 capsule
[2020-08-06] MEDS ORDERED: CLINDAMYCIN HCL 150 MG CAPSULE PO ONE (21:31)
[2020-08-06 22:05] VITALS: BP 170/102
== END 2020-08-06 22:06 | disposition left against medical advice (07) ==
LOC: ER 17:24
DX: L02.216 Cutaneous abscess of umbilicus (principal); L76.82 Other postprocedural complications of skin and subcutaneous tissue; I10 Essential (primary) hypertension; Z87.442 Personal history of urinary calculi; Z90.49 Acquired absence of other specified parts of digestive tract; Z98.51 Tubal ligation status
CPT/HCPCS: 99283; 36415; 87040; 87086; 87070; 87205; 83605; 85025; 87077; 81001; J3490; 87186

== ENCOUNTER 2020-09-09 14:43 | Emergency (ER) | payer MEDICAID ==
[2020-09-09 14:58] VITALS: BP 164/103
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
--- NOTE | 2020-09-09 16:12 | RADIOLOGY REPORT (SQ) ---
EXAM DESCRIPTION: NOSE/NASAL BONES IMAGES COMPLETED DATE/TIME: 09/09/2020 3:34 pm REASON FOR STUDY: injury COMPARISON: None. NUMBER OF VIEWS: Three view. TECHNIQUE: Images of the facial bones acquired. LIMITATIONS: None. FINDINGS: ORBITS: No fracture. No foreign body. SINUSES: No mucosal thickening. No air fluid levels. FACIAL BONES: No fracture. OTHER: No other significant finding. IMPRESSION: No fracture identified. TECHNICAL DOCUMENTATION: JOB ID: [id number] [employer]- All Rights Reserved Reading location - IP/workstation name: [email or web address]
== END 2020-09-09 16:15 | disposition home or self-care (01) ==
LOC: ER 14:43
DX: S00.33XA Contusion of nose, initial encounter (principal); W20.8XXA Other cause of strike by thrown, projected or falling object, initial encounter; I10 Essential (primary) hypertension
CPT/HCPCS: 70160; 99283